=== PATIENT | male | born 1940 | race African-American/Black ===

== ENCOUNTER 2016-02-19 08:58 | Day surgery (SDC) | payer MEDICARE ==
[2016-02-18 15:03] VITALS: BMI 265.0
[2016-02-19] MEDS ORDERED: PROPOFOL 20 ML ONE ×3 (10:38)
[2016-02-19 11:42] VITALS: TEMP 97.5
[2016-02-19 12:12] VITALS: PULSE 71
[2016-02-19 12:29] VITALS: BP 126/69
--- NOTE | 2016-02-20 13:02 | PATH ---
Surgical Pathology Report Patient Name: RICK FRASER [facility]. Rec. #: [id number] /Age/Gender: 1940 (Age: 75) / M Account: [id number] Location: ASU-ENDOSCOPY Taken: 02/19/2016 Received: 02/19/2016 Reported: 02/20/2016 Physicians: Graham De La Fuente D.O. Specimen(s) Received BX DISTAL TRANSVERSE COLON POLYP Clinical History Screening colonoscopy Hemorrhoids, diverticulosis, colon polyp Final Diagnosis COLON, DISTAL TRANSVERSE, POLYP, BIOPSY: TUBULAR ADENOMA. Electronically Signed Rick Beavers M.D. Gross Description Received in formalin, labeled "distal transverse colon polyp biopsy" are 2 ruiz, irregular portions of soft tissue measuring 0.2 and 0.3 cm. in greatest dimension. The specimens are submitted in toto in one cassette. /02/19/201602/19/2016
== END 2016-02-19 12:47 | disposition home or self-care (01) ==
LOC: JASU-ENDO 08:58
PROVIDERS: ATTEND Internal Medicine Gastroenterology
PROC: 0DBL8ZX Excision of Transverse Colon, Via Natural or Artificial Opening Endoscopic, Diagnostic (ICD-10-PCS; principal; 2016-02-19 10:30)
DX: Z12.11 Encounter for screening for malignant neoplasm of colon (principal); K57.30 Diverticulosis of large intestine without perforation or abscess without bleeding; K64.8 Other hemorrhoids; D12.3 Benign neoplasm of transverse colon
CPT/HCPCS: 88305-TC

== ENCOUNTER 2017-01-02 08:14 | Observation (INO) | payer MEDICARE ==
--- NOTE | 2017-01-02 09:24 | PDOC ---
History of Present Illness <Lv Streeter - Last Filed: 01/02/17 11:37> - General History Source: Patient Exam Limitations: No Limitations - History of Present Illness Initial Comments: 01/02/17 09:51 The patient is a 76 year old male, with a significant past medical history of hypertension, hyperlipidemia, coronary artery disease(s/p stents), myocardial infarction(s/p defibrillator placement), who presents to the emergency department complaining of pain to the right shoulder, elbow, and wrist for approximately 2 days. Patient reports gradual onset of pain to right shoulder, elbow, and wrist 2 days ago, that has since worsened. Patient reports no changes with exertion and states pain does not radiate. Patient reports he has been taking Advil with minimal relief. He denies any associated fever, chills, cough, headache, or dizziness. Prior to these symptoms, patient reports soreness to the left shoulder, wrist, and hand one week ago. Last week, patient reports slight chest pain, with no associated shortness of breath, diaphoresis, palpitations, or lower extremity edema. His symptoms from last week have since resolved. He denies any history of gout. He denies any recent travel or sick contacts. Allergies: NKDA Past Surgical History: Cardiac stents, defibrillator Social History: Former smoker(Quit 2008). No ETOH or recreational drug use. PCP: Dr. Sina Lopez Food Production Manager: Dr. Yane Connolly <Bernie Donahue - Last Filed: 01/02/17 14:39> - General Chief Complaint: Pain, Acute Stated Complaint: RT HAND SWELLING Time Seen by Provider: 01/02/17 08:51 Past History - Past Medical History Anemia: Yes Asthma: No Cancer: No Cardiac Disorders: Yes (STENTS 2004 [place] CARDIOMYOPATHY) CVA: No COPD: Yes CHF: No Dementia: No Diabetes: Yes (IDDM) GI Disorders: No Disorders: Yes (URINARY FREQUENCY) HTN: Yes Hypercholesterolemia: Yes Liver Disease: No Seizures: No Thyroid Disease: Yes (NODULE) - Surgical History Abdominal Surgery: No Appendectomy: No Cardiac Surgery: Yes (PACEMAKER, CARDIAC STENT,DEFIBRILLATOR) Cholecystectomy: Yes (LAPAROSCOPIC) Lung Surgery: No Neurologic Surgery: No Orthopedic Surgery: No - Immunization History Immunization Up to Date: Yes - Suicide/Smoking/Psychosocial Hx Smoking Status: Yes Smoking History: Former smoker Have you smoked in the past 12 months: No Number of Cigarettes Smoked Daily: 0 If you are a former smoker, when did you quit?: 2008 Information on smoking cessation initiated: No 'Breaking Loose' booklet given: 02/19/16 Hx Alcohol Use: No Drug/Substance Use Hx: No Substance Use Type: None Hx Substance Use Treatment: No <Lv Streeter - Last Filed: 01/02/17 11:37> <Bernie Donahue - Last Filed: 01/02/17 14:39> - Past Medical History Allergies/Adverse Reactions: Allergies Allergy/AdvReac Type Severity Reaction Status Date / Time No Known Allergies Allergy Verified 01/02/17 08:34 Home Medications: Ambulatory Orders Atorvastatin Ca [Lipitor] 40 mg PO HS 03/29/13 Carvedilol 6.25 mg PO BID 03/29/13 Digoxin 0.125 mcg PO DAILY 03/29/13 Glipizide 5 mg PO BID 03/29/13 Sitagliptin Phosphate [Januvia] 50 mg PO DAILY 03/29/13 Guar Gum [Benefiber] 1 each PO BID 07/15/13 Magnesium Oxide 241.3 mg PO DAILY 07/15/13 Oxycodone HCl/Acetaminophen [Percocet 5-325 mg Tablet] 1 - 2 tab PO Q6H PRN #8 tab 12/12/14 Albuterol Sulfate Inhaler - [Ventolin HFA Inhaler -] 1 - 2 inh PO DAILY PRN 10/26 Aspirin [ASA -] 81 mg PO DAILY 02/18/16 Furosemide [Lasix] 40 mg PO DAILY 02/18/16 Insulin Glargine,Hum.rec.anlog [Lantus (10mL VIAL) -] 0 units SQ DAILY 02/18/16 Linagliptin [Tradjenta] 5 mg PO DAILY 02/18/16 Omeprazole 40 mg PO DAILY 02/18/16 Zolpidem Tartrate 10 mg PO HS 02/18/16 Review of Systems - Review of Systems Able to Perform ROS?: Yes Comments:: 01/02/17 09:51 A complete review of 10 out of 10 review of systems is taken and is negative apart from what is previously mentioned below and in the HPI. <Bernie Donahue - Last Filed: 01/02/17 14:39> *Physical Exam - Vital Signs Last Vital Signs Temp Pulse Resp BP Pulse Ox 97.9 F 81 16 116/64 98 01/02/17 08:20 01/02/17 08:20 01/02/17 08:20 01/02/17 08:20 01/02/17 08:20 <FerdinandLv - Last Filed: 01/02/17 11:37> - Vital Signs Last Vital Signs Temp Pulse Resp BP Pulse Ox 97.9 F 81 16 116/64 98 01/02/17 08:20 01/02/17 08:20 01/02/17 08:20 01/02/17 08:20 01/02/17 08:20 - Physical Exam Comments: 01/02/17 09:51 Vitals: Triage Vital signs reviewed General Appearance: no acute distress, well nourished well developed, Head: Atraumatic, normocephalic Neck: Supple;No Nuchal rigidity Chest Wall: Nontender Cardiac: Regular rate and rhythm, no murmurs, no rubs, no gallops, Lungs: Clear to auscultation bilateral, good air movement bilaterally, Abdomen: Soft, nondistended, normal bowel sounds, nontender to palpation Extremities: Mild swelling to the right wrist and elbow. Pain with active range of motion, but no significant pain with passive range of motion. No overlying cellulitis. Full range of motion to the remainder of the extremities, no cyanosis, clubbing, or other edema. Skin: Warm and dry, no rashes or lesions, no petechiae Neuro: AOX3; Cranial Nerves 2-12 grossly intact, Strength intact to all extremities, Sensation intact to all extremities Psych: normal mood, normal affect <Donahue,Giomjanette - Last Filed: 01/02/17 14:39> ED Treatment Course - LABORATORY CBC & Chemistry Diagram: 01/02/17 09:55 01/02/17 09:48 - RADIOLOGY Radiology Studies Ordered: Category Date Time Status CHEST PA & LAT [RAD] Stat Radiology 01/02/17 09:22 Ordered <Lv Stereter - Last Filed: 01/02/17 11:37> - LABORATORY CBC & Chemistry Diagram: 01/02/17 09:55 01/02/17 09:48 - RADIOLOGY Radiograph Interpretation: 01/02/17 10:37 EXAM: CR Elbow-right INTERPRETED BY: Dr. Griffin REVIEWED BY: Dr. Streeter IMPRESSION: AP, lateral and oblique views reveal but appear to be degenerative changes along with old fragments by the distal humerus. There is some swelling. There may be some minimal posterior fat pad elevation. An acute fracture is not appreciated. If symptoms persist, further imaging may be of help. There are no prior studies for comparison. EXAM: CR wrist w/hand-right INTERPRETED BY: Dr. Griffin REVIEWED BY: Dr. Streeter IMPRESSION: No acute pathology. Loss of bone density. Degenerative changes. Possible old trauma third metacarpal. Erosive changes. Partially flexed digits. EXAM: CXR INTERPRETED BY: Dr. Griffin REVIEWED BY: Dr. Streeter IMPRESSION: No acute pathology. Clear lungs. Multi lead left-sided pacemaker. EXAM: US Abdomen INTERPRETED BY: Dr. Tillman REVIEWED BY: Dr. Streeter IMPRESSION: 1. Status post cholecystectomy. Dilatation of the common bile duct measuring up to 10 mm in diameter, some of which may be physiologic change postcholecystectomy. Please correlate clinically with biliary markers. No significant intrahepatic ductal dilatation. 2. Suboptimal evaluation of the pancreatic head due to overlying bowel gas. 3. Hepatic steatosis. 4. Echogenic right renal cortex compatible with medical-renal disease. No right hydronephrosis. 2.0 cm simple appearing right renal cyst. <Bernie Donahue - Last Filed: 01/02/17 14:39> Medical Decision Making - Medical Decision Making 01/02/17 11:38 76 years old with multiple medical problems presents to the ED with chest pain from a week ago polyarthralgia involving his shoulder elbow and wrist does not appear septic in nature based on examination. Feels somewhat better after IV morphine however on his laboratory analysis patient has acute on chronic renal insufficiency, and an elevated bilirubin We'll observe overnight for IV hydration recheck of labs abasic lupus workup was initiated in the emergency Department the results of this will be need to follow up by the medicine team We will also order a limited abdominal ultrasound to further evaluate the patient's hyperbilirubinemia <Lv Streeter - Last Filed: 01/02/17 11:37> - Medical Decision Making 01/02/17 09:52 Pt is a 76 year old male, with a pmhx of hypertension, hyperlipidemia, coronary artery disease(s/p stents), myocardial infarction(s/p defibrillator placement), who presents to the emergency department complaining of pain to the right shoulder, elbow, and wrist for approximately 2 days. Plan: -ESR, CRP, Uric Acid, CBC, CMP, troponin -ECG -CXR, Right elbow/wrist XR -Pain medications -Reassess Labs reveal hypocalcaemia and elevated bilirubin. Patient will be admitted for Observation overnight to the hospitalists. <Bernie Donahue - Last Filed: 01/02/17 14:39> *DC/Admit/Observation/Transfer - Discharge Dispostion Admit: Yes <Lv Streeter - Last Filed: 01/02/17 11:37> - Attestations Scribe Attestion: 01/02/17 09:53 Documentation prepared by Bernie Donahue, acting as medical billing and coding instructor for Lv Streeter MD. <Bernie Donahue - Last Filed: 01/02/17 14:39> Diagnosis at time of Disposition: Renal insufficiency, Polyarthritis
[2017-01-02] MEDS ORDERED: morphine CARPU-JECT 4 MG/1 ML DISP.SYRIN IVPUSH ONE (10:00)
[2017-01-02] MEDS ORDERED: morphine SULFATE 4 MG/ML VIAL ONE (10:00)
[2017-01-02 10:02] LABS: BASOPHIL 0.4 % (0-2.0); EOSINOPHIL 0.9 % (0-4.5); MCH 31.2 pg (25.7-33.7); MCHC 33.4 g/dl (32.0-35.9); MEAN CELL VOLUME 93.6 fl (80-96); MEAN PLT VOLUME 6.9 fl (7.5-11.1); NEUTROPHILS 73.2 % (42.8-82.8); PLATELET COUNT 217 K/MM3 (134-434); RDW 13.1 % (11.9-15.9); WHITE BLOOD COUNT 9.3 K/mm3 (4.0-10.0)
[2017-01-02 10:39] LABS: C-REACTIVE PROTEIN 11.1 MG/DL (0.00-0.3); URIC ACID 4.9 mg/dL (2.6-7.2)
[2017-01-02 10:43] LABS: ALBUMIN 3.4 g/dl (3.4-5.0); ANION GAP 8 (8-16); BILIRUBIN,TOTAL 2.3 mg/dL (0.2-1.0); CALCIUM 7.7 mg/dL (8.5-10.1); CO2 29 mmol/L (21-32); CREATININE 1.9 mg/dL (0.7-1.3); GLUCOSE,RANDOM 139 mg/dL (74-106); SGOT/AST 16 U/L (15-37); SGPT/ALT 14 U/L (12-78); TOT PROT 7.5 g/dl (6.4-8.2)
[2017-01-02 10:45] LABS: ALK PHOS 114 U/L (45-117); TROPONIN I < 0.02 ng/ml (0.00-0.05)
[2017-01-02] MEDS ORDERED: SODIUM CHLORIDE 0.9% 1000 ML INFUS.BAG IV ONE (11:24)
[2017-01-02 12:32] LABS: MAGNESIUM 1.4 mg/dL (1.8-2.4)
--- NOTE | 2017-01-02 12:39 | HP ---
PCP: Sina Lopez CHIEF COMPLAINT: Right hand pain HISTORY OF PRESENT ILLNESS: This is a 76-year-old man who comes to the ER today complaining of pain in his right shoulder, right elbow and right hand with swelling of his right hand. Symptoms started last night. He says that for the last 1-2 weeks, he had been having pain in his left shoulder and arm. This has resolved. He denies fever, chills, tick bites, rash, history of Lyme, history of STI, jaundice, recent travel. PAST MEDICAL HISTORY: Cardiomyopathy CAD Chronic systolic and diastolic heart failure HTN Hyperlipidemia Type 2 DM Anemia Stage 3 CKD Gout PAST SURGICAL HISTORY: Cardiac stents Defibrillator Cholecystectomy Social History: Smoking: Quit 3-4 years ago Alcohol: Denies Drugs: Denies Recent Travel: No Family History: Unremarkable Allergies No Known Allergies Allergy (Verified 01/02/17 08:34) Home Medications Medication Instructions Recorded Aspirin [ASA -] 81 mg PO DAILY 01/02/17 Carvedilol [Coreg] 6.25 mg PO BID 01/02/17 Cholecalciferol (Vitamin D3) 5,000 unit PO WEEKLY 01/02/17 [Vitamin D3 -] Digoxin [Lanoxin -] 0.125 mg PO DAILY 01/02/17 Febuxostat [Uloric] 40 mg PO DAILY 01/02/17 Furosemide [Lasix] 20 mg PO DAILY 01/02/17 Gabapentin 300 mg PO DAILY 01/02/17 Glimepiride [Amaryl] 2 mg PO DAILY 01/02/17 Lipitor 10 mg PO HS 01/02/17 Omeprazole 40 mg PO DAILY 01/02/17 Tradjenta 5 mg PO DAILY 01/02/17 Vasotec 5 mg PO DAILY 01/02/17 Zolpidem Tartrate [Ambien] 5 mg PO HS 01/02/17 REVIEW OF SYSTEMS CONSTITUTIONAL: Absent: fever, chills, diaphoresis, generalized weakness, malaise, loss of appetite, weight change HEENT: Absent: rhinorrhea, nasal congestion, throat pain, throat swelling, difficulty swallowing, mouth swelling, ear pain, eye pain, visual changes CARDIOVASCULAR: Absent: chest pain, syncope, palpitations, lightheadedness, peripheral edema RESPIRATORY: Absent: cough, shortness of breath, dyspnea with exertion, orthopnea, wheezing, stridor, hemoptysis GASTROINTESTINAL: Absent: abdominal pain, abdominal distension, nausea, vomiting , diarrhea, constipation, melena, hematochezia GENITOURINARY: Absent: dysuria, frequency, urgency, hesitancy, hematuria, flank pain MUSCULOSKELETAL: Present: arthralgias, right hand swelling. Absent: myalgia, back pain, neck pain SKIN: Absent: rash, itching, pallor HEMATOLOGIC/IMMUNOLOGIC: Absent: easy bleeding, easy bruising, lymphadenopathy, frequent infections ENDOCRINE: Absent: unexplained weight gain, unexplained weight loss, heat intolerance, cold intolerance NEUROLOGIC: Absent: headache, focal weakness, paresthesias, dizziness, unsteady gait, seizure, mental status changes, bladder or bowel incontinence PSYCHIATRIC: Absent: anxiety, depression, suicidal or homicidal ideation, hallucinations. PHYSICAL EXAMINATION Vital Signs - 24 hr 01/02/17 08:20 Temperature 97.9 F Pulse Rate 81 Respiratory 16 Rate Blood Pressure 116/64 O2 Sat by Pulse 98 Oximetry (%) GENERAL: Awake, alert, and fully oriented, in no acute distress. HEAD: Normal with no signs of trauma. EYES: Pupils equal, round and reactive to light, extraocular movements intact, sclerae anicteric, conjunctivae clear. EARS, NOSE, THROAT: Ears normal, nares patent, oropharynx clear without exudates. Moist mucous membranes. NECK: Normal range of motion, supple without lymphadenopathy, JVD, or masses. LUNGS: Breath sounds equal, clear to auscultation bilaterally. No wheezes, and no crackles. No accessory muscle use. HEART: Regular rate and rhythm, normal S1 and S2 without murmur, rub or gallop. ABDOMEN: Soft, nontender, not distended, normoactive bowel sounds, no guarding, no rebound, no masses. No hepatomegaly or splenomegaly. MUSCULOSKELETAL: Right hand swollen. No erythema, warmth. Decreased ROM of fingers of right hand. Normal ROM of right shoulder and right elbow without swelling or erythema. No CVA tenderness. UPPER EXTREMITIES: 2+ pulses, warm, well-perfused. No cyanosis. No clubbing. No peripheral edema. LOWER EXTREMITIES: 2+ pulses, warm, well-perfused. No calf tenderness. No peripheral edema. NEUROLOGICAL: Cranial nerves II-XII intact. Normal speech. No focal deficits. Gait nob observed. PSYCHIATRIC: Cooperative. Good eye contact. Appropriate mood and affect. SKIN: Warm, dry, normal turgor, no rashes or lesions noted, normal capillary refill. Laboratory Results - last 24 hr 01/02/17 01/02/17 01/02/17 09:48 09:48 09:55 WBC 9.3 D RBC 3.67 L Hgb 11.5 L Hct 34.4 L MCV 93.6 MCH 31.2 MCHC 33.4 RDW 13.1 Plt Count 217 D MPV 6.9 L Neutrophils % 73.2 D Lymphocytes % 16.3 D Monocytes % 9.2 Eosinophils % 0.9 Basophils % 0.4 PTT (Actin FS) 32.6 Sodium 137 Potassium 4.3 Chloride 100 Carbon Dioxide 29 Anion Gap 8 BUN 22 H D Creatinine 1.9 H D Creat Clearance w eGFR 34.73 Random Glucose 139 H D Uric Acid Calcium 7.7 L Magnesium Total Bilirubin 2.3 H D AST 16 D ALT 14 D Alkaline Phosphatase 114 Troponin I < 0.02 C-Reactive Protein Total Protein 7.5 Albumin 3.4 Rheumatoid Factor 01/02/17 09:55 WBC RBC Hgb Hct MCV MCH MCHC RDW Plt Count MPV Neutrophils % Lymphocytes % Monocytes % Eosinophils % Basophils % PTT (Actin FS) Sodium Potassium Chloride Carbon Dioxide Anion Gap BUN Creatinine Creat Clearance w eGFR Random Glucose Uric Acid 4.9 Calcium Magnesium 1.4 L D Total Bilirubin AST ALT Alkaline Phosphatase Troponin I C-Reactive Protein 11.1 H Total Protein Albumin Rheumatoid Factor < 10.0 ASSESSMENT/PLAN: This is a 76-year-old man with a history of cardiomyopathy, CAD, cardiac stents , chronic systolic and diastolic heart failure, ICD, HTN, hyperlipidemia, type 2 DM, anemia, stage 3 CKD, gout who presented to the ER today complaining of pain in his right shoulder, right elbow, right hand with swelling of his right hand. 1. Polyarthralgias - Does not appear to be acute gout - Continue Percocet as needed for pain - Avoid NSAIDs secondary to CKD - C-RP elevated, uric acid normal, RF negative - Check HERB, hepatitis panel, Lyme Ab 2. Hyperbilirubinemia - Direct bili pending - RUQ US pending 3. Hypomagnesemia - Supplement magnesium 4. Hypocalcemia - Corrected calcium is 8.2 5. Stage 3 CKD - Last available creatinines were 1.5-1.7 in 2014 - Avoid NSAIDs - Cautious IV hydration - Monitor creatinine 6. CAD - Stable - Continue aspirin, Coreg, Lipitor 7. Cardiomyopathy with chronic systolic and diastolic heart failure - Stable - Continue Coreg, Vasotec, Lasix, Digoxin - Has ICD 8. Hypertension - Continue Coreg, Vasotec, Lasix 9. Hyperlipidemia - Continue Lipitor 10. Type 2 diabetes mellitus - Hold Tradjenta, Amaryl - Fingersticks with Novolog sliding scale 11. History of gout - Ethanitiffany Rothmanoric
[2017-01-02] MEDS ORDERED: ALBUTEROL SO4 18 GM HFA INHALER IH PRN (13:12)
[2017-01-02] MEDS ORDERED: ACETAMINOPHEN 325 MG TABLET (FP) PO PRN (13:15)
[2017-01-02] MEDS ORDERED: SODIUM CHLORIDE 1,000 ML IV SCH (13:15)
[2017-01-02] MEDS ORDERED: MAGNESIUM SULF 50% (8.12 MEQ/2 ML-1 GM VIAL) IVPB ONE (14:05)
[2017-01-02] MEDS ORDERED: INSULIN DETEMIR 100 UNITS/ML MDV SQ SCH (14:15)
[2017-01-02] MEDS: oxyCODONE HCL 5 MG TABLET PO PRN (15:44)
[2017-01-02] MEDS: ACETAMINOPHEN 325 MG TABLET (FP) PO PRN (15:45)
[2017-01-02 16:44] VITALS: BMI 29.0
[2017-01-02 16:55] LABS: BILIRUBIN,DIRECT 1.3 mg/dL (0.0-0.2); MAGNESIUM 1.4 mg/dL (1.8-2.4)
[2017-01-02] MEDS: INSULIN SLIDING SCALE (NOVOLOG) 1 VIAL SQ SCH ×2 (17:41→22:22)
[2017-01-02] MEDS ORDERED: FLU VACCINE QUAD 60 MCG/0.5 ML (MDV 17-18) IM ONE (18:15)
[2017-01-02] MEDS ORDERED: CARVEDILOL 6.25 MG TABLET (FP) PO SCH (22:00)
[2017-01-02] MEDS ORDERED: ATORVASTATIN CA 40 MG TABLET (FP) PO SCH (22:00)
[2017-01-02] MEDS: ZOLPIDEM TARTRATE 5 MG TABLET PO PRN (22:21)
[2017-01-02] MEDS: ATORVASTATIN CA 10 MG TABLET (FP) PO SCH (22:21)
[2017-01-02] MEDS: CARVEDILOL 6.25 MG TABLET (FP) PO SCH (22:21)
[2017-01-03] MEDS: oxyCODONE HCL 5 MG TABLET PO PRN ×3 (01:31→20:07)
[2017-01-03] MEDS: ACETAMINOPHEN 325 MG TABLET (FP) PO PRN ×3 (01:32→20:06)
[2017-01-03] MEDS: INSULIN SLIDING SCALE (NOVOLOG) 1 VIAL SQ SCH ×4 (06:18→21:48)
[2017-01-03 07:44] LABS: BASOPHIL 0.3 % (0-2.0); EOSINOPHIL 1.4 % (0-4.5); MCH 31.6 pg (25.7-33.7); MCHC 33.6 g/dl (32.0-35.9); MEAN CELL VOLUME 93.9 fl (80-96); MEAN PLT VOLUME 7.5 fl (7.5-11.1); NEUTROPHILS 67.4 % (42.8-82.8); PLATELET COUNT 182 K/MM3 (134-434); RDW 12.9 % (11.9-15.9)
[2017-01-03 08:39] LABS: ANION GAP 8 (8-16); CALCIUM 7.5 mg/dL (8.5-10.1); CO2 28 mmol/L (21-32); CREATININE 1.6 mg/dL (0.7-1.3); GLUCOSE,RANDOM 93 mg/dL (74-106); MAGNESIUM 1.9 mg/dL (1.8-2.4)
[2017-01-03] MEDS ORDERED: FLU VACCINE QUAD 60 MCG/0.5 ML (MDV 17-18) IM ONE (09:00)
[2017-01-03 09:31] LABS: ALBUMIN 2.9 g/dl (3.4-5.0); BILIRUBIN,DIRECT 1.5 mg/dL (0.0-0.2); BILIRUBIN,TOTAL 2.5 mg/dL (0.2-1.0)
--- NOTE | 2017-01-03 09:59 | PN ---
Progress Note (short form) - Note Progress Note: Subjective: The patient was seen and examined at the bedside, he is still complaining of right hand and elbow pain and swelling. Current Medications Generic Name Dose Route Start Last Admin Trade Name Freq PRN Reason Stop Dose Admin Acetaminophen 325 mg 01/02/17 13:17 01/03/17 01:32 Tylenol - PO 325 mg Q6H PRN Administration PAIN Acetaminophen 650 mg 01/02/17 13:15 Tylenol - PO Q4H PRN FEVER OR PAIN Albuterol Sulfate 2 puff 01/02/17 13:12 Ventolin Hfa Inhaler - IH Q4H PRN SHORT OF BREATH/WHEEZING Aspirin 81 mg 01/03/17 10:00 Asa - PO DAILY CLIVE Atorvastatin Calcium 10 mg 01/02/17 22:00 01/02/17 22:21 Lipitor - PO 10 mg HS CLIVE Administration Carvedilol 6.25 mg 01/02/17 22:00 01/02/17 22:21 Coreg - PO 6.25 mg BID CLIVE Administration Digoxin 0.125 mg 01/03/17 10:00 Lanoxin - PO DAILY CLIVE Enalapril Maleate 5 mg 01/03/17 10:00 Vasotec - PO DAILY CLIVE Ergocalciferol 50,000 unit 01/04/17 10:00 Drisdol - PO Benito@1000 CLIVE Febuxostat 40 mg 01/03/17 10:00 Uloric - PO DAILY CLIVE Furosemide 20 mg 01/03/17 10:00 Lasix - PO DAILY CLIVE Gabapentin 300 mg 01/03/17 10:00 Neurontin - PO DAILY CLIVE Sodium Chloride 1,000 mls @ 50 mls/hr 01/02/17 13:15 01/02/17 16:01 Normal Saline - IV 01/03/17 13:17 50 mls/hr ASDIR CLIVE Administration Insulin Aspart 1 vial 01/02/17 16:30 01/03/17 06:18 Novolog Vial Sliding Scale - SQ Not Given ACHS CLIVE Protocol Oxycodone HCl 5 mg 01/02/17 13:17 01/03/17 01:31 Roxicodone - PO 5 mg Q6H PRN Administration PAIN Pantoprazole Sodium 40 mg 01/03/17 10:00 Protonix - PO DAILY CLIVE Zolpidem Tartrate 5 mg 01/02/17 22:00 01/02/17 22:21 Ambien - PO 5 mg HS PRN Administration INSOMNIA Objective: Vital Signs Period Temp Pulse Resp BP Sys/Robbins Pulse Ox Last 24 Hr 98.1 F-99.9 F 72-86 18-20 115-130/59-80 99-99 Physical Exam: General: NAD, A&Ox3 Lungs: CTA bilaterally Heart: RRR, S1S2 Abd: Soft, non-tender, non-distended. Normoactive bowel sounds Ext: R hand edema, no erythema. Decreased ROM to fingers and wrist. Normal ROM to right shoulder and right elbow without erythema or edema CBCD WBC 8.0 K/mm3 (4.0-10.0) 01/03/17 05:17 RBC 3.04 M/mm3 (4.00-5.60) L 01/03/17 05:17 Hgb 9.6 GM/dL (11.7-16.9) L D 01/03/17 05:17 Hct 28.6 % (35.4-49) L D 01/03/17 05:17 MCV 93.9 fl (80-96) 01/03/17 05:17 MCHC 33.6 g/dl (32.0-35.9) 01/03/17 05:17 RDW 12.9 % (11.9-15.9) 01/03/17 05:17 Plt Count 182 K/MM3 (134-434) 01/03/17 05:17 MPV 7.5 fl (7.5-11.1) 01/03/17 05:17 CMP Sodium 140 mmol/L (136-145) 01/03/17 05:17 Potassium 3.9 mmol/L (3.5-5.1) 01/03/17 05:17 Chloride 104 mmol/L (98-107) 01/03/17 05:17 Carbon Dioxide 28 mmol/L (21-32) 01/03/17 05:17 Anion Gap 8 (8-16) 01/03/17 05:17 BUN 20 mg/dL (7-18) H 01/03/17 05:17 Creatinine 1.6 mg/dL (0.7-1.3) H 01/03/17 05:17 Creat Clearance w eGFR 34.73 (>60) 01/02/17 09:48 Random Glucose 93 mg/dL (74-106) D 01/03/17 05:17 Calcium 7.5 mg/dL (8.5-10.1) L 01/03/17 05:17 Total Bilirubin 2.3 mg/dL (0.2-1.0) H D 01/02/17 09:48 AST 16 U/L (15-37) D 01/02/17 09:48 ALT 14 U/L (12-78) D 01/02/17 09:48 Alkaline Phosphatase 114 U/L (45-117) 01/02/17 09:48 Total Protein 7.5 g/dl (6.4-8.2) 01/02/17 09:48 Albumin 3.4 g/dl (3.4-5.0) 01/02/17 09:48 CARDIAC ENZYMES Troponin I < 0.02 ng/ml (0.00-0.05) 01/02/17 09:48 Assessment: This is a 76 year old male with PMHx of cardiomyopathy, CAD, cardiac tests, chronic systolic and diastolic heart failure, ICD, HTN, hyperlipidemia, DM, anemia, CKD stage 3, gout, who presented to the ED with right shoulder, right elbow, right hand pain and swelling. Plan: 1) Polyarthritis - Possible pseudogout? - Elevated ESR, CRP, normal uric acid - Percocet prn pain - RF negative - F/u HERB, lyme Ab 2) Hyperbilirubinemia - F/u levels today - F/u hepatitis panel - Liver ultrasound with s/p cholecystectomy. Dilation of the common bile duct measuring up to 10mm in diameter. hepatic steatosis. - F/u GI consult 3) Anemia - Hgb dropped from 11.5->9.6 may be dilutional as the patient received IV fluids - d/c fluids and recheck H/H this pm 4) CKD stabe 3 - Cr 1.6 today - Avoid NSAIDs - Monitor Cr 5) CAD - Continue ASA - Continue Coreg - Continue Lipitor 6) Cardiomyopathy wtih chronic systolic and diastolic heart failure - No evidence of acute failure at this time - Continue Lasix - Continue Digoxin - Continue Vasotec - Continue Coreg 7) HTN - As above 8) DM - BGM ACHS - ISS ACHS 9) Gout - Continue Uloric 10) F/E/N: - Diabetic/sodium controlled diet - Monitor calcium (corrected for hypoalbumineami 8.2) 11) Prophylaxis: - OOB ambulating - Heparin 5,000u sq bid (no evidence of bleeding) 12) Dispo: - Requires continued observation CODE STATUS: FULL CODE Visit type - Emergency Visit Emergency Visit: Yes ED Registration Date: 01/02/17 Care time: The patient presented to the Emergency Department on the above date and was hospitalized for further evaluation of their emergent condition. - New Patient This patient is new to me today: Yes Date on this admission: 01/03/17 - Critical Care Critical Care patient: No
[2017-01-03] MEDS ORDERED: DIGOXIN 0.125 MG TABLET (FP) PO SCH (10:00)
[2017-01-03] MEDS ORDERED: ASPIRIN 81 MG CHEWABLE TABLETS PO SCH (10:00)
[2017-01-03] MEDS ORDERED: PANTOPRAZOLE 40 MG TABLET (FP) PO SCH (10:00)
[2017-01-03] MEDS ORDERED: FUROSEMIDE 40 MG TABLET (FP) PO SCH (10:00)
[2017-01-03] MEDS: CARVEDILOL 6.25 MG TABLET (FP) PO SCH ×2 (10:10→21:48)
[2017-01-03] MEDS: DIGOXIN 0.125 MG TABLET (FP) PO SCH (10:10)
[2017-01-03] MEDS: PANTOPRAZOLE 40 MG TABLET (FP) PO SCH (10:10)
[2017-01-03] MEDS: ASPIRIN 81 MG CHEWABLE TABLETS PO SCH (10:10)
[2017-01-03] MEDS: FEBUXOSTAT 40 MG TAB PO SCH (10:11)
[2017-01-03] MEDS: GABAPENTIN 300 MG CAPSULE (FP) PO SCH (10:11)
[2017-01-03] MEDS: FUROSEMIDE 20 MG TABLET (FP) PO SCH (10:11)
[2017-01-03] MEDS: ENALAPRIL MALEATE 5 MG TABLET (FP) PO SCH (10:11)
[2017-01-03 16:44] LABS: MCH 31.6 pg (25.7-33.7); MCHC 33.9 g/dl (32.0-35.9); MEAN CELL VOLUME 93.4 fl (80-96); MEAN PLT VOLUME 7.2 fl (7.5-11.1); PLATELET COUNT 221 K/MM3 (134-434); RDW 12.8 % (11.9-15.9); WHITE BLOOD COUNT 7.7 K/mm3 (4.0-10.0)
[2017-01-03] MEDS: ZOLPIDEM TARTRATE 5 MG TABLET PO PRN (21:47)
[2017-01-03] MEDS: ATORVASTATIN CA 10 MG TABLET (FP) PO SCH (21:48)
[2017-01-03] MEDS: HEPARIN NA (PORCINE) 5,000 UNITS/ML 1ML VIAL SQ SCH (21:48)
[2017-01-04] MEDS: INSULIN SLIDING SCALE (NOVOLOG) 1 VIAL SQ SCH ×4 (06:12→21:06)
[2017-01-04] MEDS: ACETAMINOPHEN 325 MG TABLET (FP) PO PRN ×3 (07:23→21:04)
[2017-01-04] MEDS: oxyCODONE HCL 5 MG TABLET PO PRN ×3 (07:23→21:05)
[2017-01-04 08:23] LABS: MCH 31.4 pg (25.7-33.7); MCHC 33.7 g/dl (32.0-35.9); MEAN PLT VOLUME 6.8 fl (7.5-11.1); PLATELET COUNT 230 K/MM3 (134-434); RDW 12.8 % (11.9-15.9); WHITE BLOOD COUNT 7.9 K/mm3 (4.0-10.0)
[2017-01-04 08:59] LABS: ALBUMIN 2.9 g/dl (3.4-5.0); ALK PHOS 110 U/L (45-117); ANION GAP 9 (8-16); CALCIUM 7.8 mg/dL (8.5-10.1); CO2 25 mmol/L (21-32); CREATININE 1.6 mg/dL (0.7-1.3); GLUCOSE,RANDOM 118 mg/dL (74-106); SGOT/AST 16 U/L (15-37); SGPT/ALT 13 U/L (12-78); TOT PROT 6.6 g/dl (6.4-8.2)
[2017-01-04] MEDS: DIGOXIN 0.125 MG TABLET (FP) PO SCH (09:19)
[2017-01-04] MEDS: CARVEDILOL 6.25 MG TABLET (FP) PO SCH ×2 (09:19→21:04)
[2017-01-04] MEDS: ASPIRIN 81 MG CHEWABLE TABLETS PO SCH (09:20)
[2017-01-04] MEDS: PANTOPRAZOLE 40 MG TABLET (FP) PO SCH (09:20)
[2017-01-04] MEDS: FUROSEMIDE 20 MG TABLET (FP) PO SCH (09:20)
[2017-01-04] MEDS: GABAPENTIN 300 MG CAPSULE (FP) PO SCH (09:20)
[2017-01-04] MEDS: ENALAPRIL MALEATE 5 MG TABLET (FP) PO SCH (09:21)
[2017-01-04] MEDS: FEBUXOSTAT 40 MG TAB PO SCH (09:21)
[2017-01-04] MEDS: HEPARIN NA (PORCINE) 5,000 UNITS/ML 1ML VIAL SQ SCH ×2 (09:21→21:12)
[2017-01-04] MEDS ORDERED: ERGOCALCIFEROL (VITAMIN D2) 50,000 UNIT CAPSULE (FP) PO SCH (10:00)
--- NOTE | 2017-01-04 10:55 | PN ---
Progress Note (short form) - Note Progress Note: Patient is a patient of Dr Beltre recent colonsocopy done. Please call for further evaluation. Direct bilirubin ordered. Elevated total bilirubin most likely secondary to right sided heart failure. Thanks
--- NOTE | 2017-01-04 12:28 | PN ---
Progress Note (short form) - Note Progress Note: Subjective: The patient was seen and examined at the bedside, he is complaining that he would like to go home Still with Right hand swelling Spoke with daughter, she states his hands and wrists "get swollen a lot" and that he often complains of knee pain. She states when the swelling is intolerable for the patient he will take colchycine Current Medications Generic Name Dose Route Start Last Admin Trade Name Freq PRN Reason Stop Dose Admin Acetaminophen 325 mg 01/02/17 13:17 01/04/17 07:23 Tylenol - PO 325 mg Q6H PRN Administration PAIN Acetaminophen 650 mg 01/02/17 13:15 Tylenol - PO Q4H PRN FEVER OR PAIN Albuterol Sulfate 2 puff 01/02/17 13:12 Ventolin Hfa Inhaler - IH Q4H PRN SHORT OF BREATH/WHEEZING Aspirin 81 mg 01/03/17 10:00 01/04/17 09:20 Asa - PO 81 mg DAILY CLIVE Administration Atorvastatin Calcium 10 mg 01/02/17 22:00 01/03/17 21:48 Lipitor - PO 10 mg HS CLIVE Administration Carvedilol 6.25 mg 01/02/17 22:00 01/04/17 09:19 Coreg - PO 6.25 mg BID CLIVE Administration Digoxin 0.125 mg 01/03/17 10:00 01/04/17 09:19 Lanoxin - PO 0.125 mg DAILY CLIVE Administration Enalapril Maleate 5 mg 01/03/17 10:00 01/04/17 09:21 Vasotec - PO 5 mg DAILY CLIVE Administration Ergocalciferol 50,000 unit 01/04/17 10:00 01/04/17 09:21 Drisdol - PO 50,000 unit Benito@1000 CLIVE Administration Febuxostat 40 mg 01/03/17 10:00 01/04/17 09:21 Uloric - PO 40 mg DAILY CLIVE Administration Furosemide 20 mg 01/03/17 10:00 01/04/17 09:20 Lasix - PO 20 mg DAILY CLIVE Administration Gabapentin 300 mg 01/03/17 10:00 01/04/17 09:20 Neurontin - PO 300 mg DAILY CLIVE Administration Heparin Sodium (Porcine) 5,000 unit 01/03/17 22:00 01/04/17 09:21 Heparin - SQ 5,000 unit BID CLIVE Administration Insulin Aspart 1 vial 01/02/17 16:30 01/04/17 11:24 Novolog Vial Sliding Scale - SQ Not Given ACHS [facility] Protocol Oxycodone HCl 5 mg 01/02/17 13:17 01/04/17 07:23 Roxicodone - PO 5 mg Q6H PRN Administration PAIN Pantoprazole Sodium 40 mg 01/03/17 10:00 01/04/17 09:20 Protonix - PO 40 mg DAILY CLIVE Administration Zolpidem Tartrate 5 mg 01/02/17 22:00 01/03/17 21:47 Ambien - PO 5 mg HS PRN Administration INSOMNIA Objective: Vital Signs Period Temp Pulse Resp BP Sys/Robbins Pulse Ox Last 24 Hr 98.1 F-98.9 F 70-90 17-20 107-130/59-68 99 Physical Exam: General: NAD, A&Ox3 Lungs: CTA bilaterally Heart: RRR, S1S2 Abd: Soft, non-tender, non-distended. Normoactive bowel sounds Ext: R hand edema, no erythema. Decreased ROM to fingers and wrist. Normal ROM to right shoulder and right elbow without erythema or edema CBCD WBC 7.9 K/mm3 (4.0-10.0) 01/04/17 07:30 RBC 3.24 M/mm3 (4.00-5.60) L 01/04/17 07:30 Hgb 10.2 GM/dL (11.7-16.9) L 01/04/17 07:30 Hct 30.1 % (35.4-49) L 01/04/17 07:30 MCV 93.0 fl (80-96) 01/04/17 07:30 MCHC 33.7 g/dl (32.0-35.9) 01/04/17 07:30 RDW 12.8 % (11.9-15.9) 01/04/17 07:30 Plt Count 230 K/MM3 (134-434) 01/04/17 07:30 MPV 6.8 fl (7.5-11.1) L 01/04/17 07:30 CMP Sodium 137 mmol/L (136-145) 01/04/17 07:30 Potassium 4.2 mmol/L (3.5-5.1) 01/04/17 07:30 Chloride 103 mmol/L (98-107) 01/04/17 07:30 Carbon Dioxide 25 mmol/L (21-32) 01/04/17 07:30 Anion Gap 9 (8-16) 01/04/17 07:30 BUN 19 mg/dL (7-18) H 01/04/17 07:30 Creatinine 1.6 mg/dL (0.7-1.3) H 01/04/17 07:30 Creat Clearance w eGFR 42.35 (>60) 01/04/17 07:30 Random Glucose 118 mg/dL (74-106) H D 01/04/17 07:30 Calcium 7.8 mg/dL (8.5-10.1) L 01/04/17 07:30 Total Bilirubin 3.0 mg/dL (0.2-1.0) H 01/04/17 07:30 AST 16 U/L (15-37) 01/04/17 07:30 ALT 13 U/L (12-78) 01/04/17 07:30 Alkaline Phosphatase 110 U/L (45-117) 01/04/17 07:30 Total Protein 6.6 g/dl (6.4-8.2) 01/04/17 07:30 Albumin 2.9 g/dl (3.4-5.0) L 01/04/17 07:30 CARDIAC ENZYMES Troponin I < 0.02 ng/ml (0.00-0.05) 01/02/17 09:48 Assessment: This is a 76 year old male with PMHx of cardiomyopathy, CAD, cardiac tests, chronic systolic and diastolic heart failure, ICD, HTN, hyperlipidemia, DM, anemia, CKD stage 3, gout, who presented to the ED with right shoulder, right elbow, right hand pain and swelling. Plan: 1) Polyarthritis - Possible pseudogout? - Elevated ESR, CRP, normal uric acid - Percocet prn pain - RF negative - F/u HERB, lyme Ab - Will not give colchycine at this time given his kidney function - Hold off on starting steroids at this time until evaluated by rheumatology 2) Hyperbilirubinemia - Bili 3 today - F/u hepatitis panel - Liver ultrasound with s/p cholecystectomy. Dilation of the common bile duct measuring up to 10mm in diameter. hepatic steatosis. - F/u GI consult 3) Anemia - Hgb stable, continue to monitor 4) CKD stabe 3 - Cr 1.6 today - Avoid NSAIDs - Monitor Cr 5) CAD - Continue ASA - Continue Coreg - Continue Lipitor 6) Cardiomyopathy with chronic systolic and diastolic heart failure - No evidence of acute failure at this time - Continue Lasix - Continue Digoxin - Continue Vasotec - Continue Coreg 7) HTN - As above 8) DM - BGM ACHS - ISS ACHS 9) Gout - Continue Uloric 10) F/E/N: - Diabetic/sodium controlled diet - Monitor electrolytes 11) Prophylaxis: - OOB ambulating - Heparin 5,000u sq bid (no evidence of bleeding) 12) Dispo: - Requires continued observation CODE STATUS: FULL CODE Visit type - Emergency Visit Emergency Visit: Yes ED Registration Date: 01/02/17 Care time: The patient presented to the Emergency Department on the above date and was hospitalized for further evaluation of their emergent condition. - New Patient This patient is new to me today: No - Critical Care Critical Care patient: No
--- NOTE | 2017-01-04 19:51 | CONSULT ---
Consult Consult Specialty:: Rheumatology - History of Present Illness History of Present Illness: 76 year old male with past medical history of hypertension, hyperlipidemia, coronary artery disease(s/p stents), myocardial infarction(s/p defibrillator placement), and gouty arthritis admitted with acute arthritis in multiple joints. The patient is a poor historian. I spoke with his daughter- and I could not get detailed history. He has had gouty arthritis for a long period of time (at least 10 years), treated with Uloric (they cannot remember for how long). Apparently the last episode of acute arthritis was 2 months ago. The patient reports a 3 day histpory fo acute arthritis in the right elbow and right knee and today he developed pain in both knees (according to previous notes, he might have had the pain for 2 weeks). The pain is severe and he did not improve since admission. Since admission T max. 99.9. On admission ESR was 78, creatinine 1.6, uric acid 4.9 and LFT normal. X rays of the right hand revealed a normal carpus. The 2nd and 4th MCPs had marginal erosions with sclerotic margin and normal joint space. The 5th PIP also had a marginal erosion with sclerotic margin. Significant degenerative chanegs in PIPs and DIPS. Left elbow had a bonce freament in the humerus - etiology? previous fracture? - History Source History Provided By: Patient, Family Member, Medical Record Limitations to Obtaining History: Poor Historian - Past Medical History Cardio/Vascular: Yes: CAD, HTN, Hyperlipdemia, Other (defibrillator,s/p cardiac stent at [facility]) Renal/: Yes: Renal Failure (chronic) Rheumatology: Yes: Gout Endocrine: Yes: Diabetes Mellitus - Past Surgical History Past Surgical History: Yes: AICD - Alcohol/Substance Use Hx Alcohol Use: No History of Substance Use: reports: None - Smoking History Smoking history: Former smoker Have you smoked in the past 12 months: No Aproximately how many cigarettes per day: 0 If you are a former smoker, when did you quit?: 2008 - Social History Usual Living Arrangement: Alone ADL: Independent History of Recent Travel: No Home Medications - Allergies Allergies/Adverse Reactions: Allergies Allergy/AdvReac Type Severity Reaction Status Date / Time No Known Allergies Allergy Verified 01/02/17 08:34 - Home Medications Home Medications: Ambulatory Orders Aspirin [ASA -] 81 mg PO DAILY 01/02/17 Carvedilol [Coreg] 6.25 mg PO BID 01/02/17 Cholecalciferol (Vitamin D3) [Vitamin D3 -] 5,000 unit PO WEEKLY 01/02/17 Digoxin [Lanoxin -] 0.125 mg PO DAILY 01/02/17 Febuxostat [Uloric] 40 mg PO DAILY 01/02/17 Furosemide [Lasix] 20 mg PO DAILY 01/02/17 Gabapentin 300 mg PO DAILY 01/02/17 Glimepiride [Amaryl] 2 mg PO DAILY 01/02/17 Lipitor 10 mg PO HS 01/02/17 Omeprazole 40 mg PO DAILY 01/02/17 Tradjenta 5 mg PO DAILY 01/02/17 Vasotec 5 mg PO DAILY 01/02/17 Zolpidem Tartrate [Ambien] 5 mg PO HS 01/02/17 Family Disease History - Family Disease History Family Disease History: Diabetes: Mother, Heart Disease: Father Review of Systems - Review of Systems Constitutional: reports: Malaise Eyes: reports: No Symptoms HENT: reports: No Symptoms Neck: reports: No Symptoms Cardiovascular: reports: No Symptoms Respiratory: reports: Snoring Gastrointestinal: reports: No Symptoms Musculoskeletal: reports: Other (See HPI) Physical Exam Vital Signs: Vital Signs Temperature 98.7 F 01/04/17 18:50 Pulse Rate 83 01/04/17 18:50 Respiratory Rate 20 01/04/17 18:50 Blood Pressure 126/65 01/04/17 18:50 O2 Sat by Pulse Oximetry (%) 99 01/04/17 10:00 Constitutional: Yes: Moderate Distress Eyes: Yes: WNL HENT: Yes: WNL Neck: Yes: WNL Cardiovascular: Yes: WNL Respiratory: Yes: WNL Gastrointestinal: Yes: WNL Musculoskeletal: Yes: Other (Tenderness and swelling in the right elbow, right wrist. In the right hand: swelling of the 2nd and 3rd MCPs and 2nd and 3rd PIPs. No active joints in the left hand. Both knees were tender and swollen.) Labs: CBC, BMP 01/04/17 07:30 01/04/17 07:30 Laboratory Tests 01/02/17 01/02/17 01/04/17 09:48 09:55 07:30 ESR 78 H Uric Acid 4.9 Total Bilirubin 3.0 H AST 16 ALT 13 Alkaline Phosphatase 110 Total Protein 6.6 Albumin 2.9 L Problem List - Problems (1) Gout Assessment/Plan: Probable polyarticular acute gouty arthritis, even though uric acid was normal. Mild chronic kidney disease. Plan: Prednisone 40 mg PO daily fror 3 days, then tapering schedule every 3 days and DC. Low purine diet. Code(s): M10.9 - GOUT, UNSPECIFIED
[2017-01-04] MEDS: predniSONE 20 MG TABLET (UD) PO SCH (21:03)
[2017-01-04] MEDS: ZOLPIDEM TARTRATE 5 MG TABLET PO PRN (21:04)
[2017-01-04] MEDS: ATORVASTATIN CA 10 MG TABLET (FP) PO SCH (21:04)
[2017-01-05] MEDS: INSULIN SLIDING SCALE (NOVOLOG) 1 VIAL SQ SCH ×3 (06:16→16:51)
[2017-01-05 07:26] LABS: MCH 30.8 pg (25.7-33.7); MCHC 33.3 g/dl (32.0-35.9); MEAN CELL VOLUME 92.5 fl (80-96); MEAN PLT VOLUME 6.9 fl (7.5-11.1); PLATELET COUNT 231 K/MM3 (134-434); RDW 12.7 % (11.9-15.9); WHITE BLOOD COUNT 6.6 K/mm3 (4.0-10.0)
[2017-01-05 08:01] LABS: ALBUMIN 2.7 g/dl (3.4-5.0); ALK PHOS 104 U/L (45-117); ANION GAP 4 (8-16); BILIRUBIN,DIRECT 1.6 mg/dL (0.0-0.2); BILIRUBIN,TOTAL 2.6 mg/dL (0.2-1.0); CALCIUM 7.6 mg/dL (8.5-10.1); CO2 30 mmol/L (21-32); CREATININE 1.7 mg/dL (0.7-1.3); GLUCOSE,RANDOM 170 mg/dL (74-106); SGOT/AST 15 U/L (15-37); SGPT/ALT 13 U/L (12-78); TOT PROT 6.2 g/dl (6.4-8.2)
[2017-01-05] MEDS ORDERED: PT OWN MED DRAWER 7, Y5N ONE (08:51)
[2017-01-05] MEDS: predniSONE 20 MG TABLET (UD) PO SCH (09:02)
[2017-01-05] MEDS: HEPARIN NA (PORCINE) 5,000 UNITS/ML 1ML VIAL SQ SCH (09:02)
[2017-01-05] MEDS: ASPIRIN 81 MG CHEWABLE TABLETS PO SCH (09:03)
[2017-01-05] MEDS: oxyCODONE HCL 5 MG TABLET PO PRN (09:03)
[2017-01-05] MEDS: FEBUXOSTAT 40 MG TAB PO SCH (09:03)
[2017-01-05] MEDS: GABAPENTIN 300 MG CAPSULE (FP) PO SCH (09:04)
[2017-01-05] MEDS: CARVEDILOL 6.25 MG TABLET (FP) PO SCH (09:04)
[2017-01-05] MEDS: ACETAMINOPHEN 325 MG TABLET (FP) PO PRN (09:04)
[2017-01-05] MEDS: DIGOXIN 0.125 MG TABLET (FP) PO SCH (09:04)
[2017-01-05] MEDS: ENALAPRIL MALEATE 5 MG TABLET (FP) PO SCH (09:04)
[2017-01-05] MEDS: PANTOPRAZOLE 40 MG TABLET (FP) PO SCH (09:04)
[2017-01-05] MEDS: FUROSEMIDE 20 MG TABLET (FP) PO SCH (09:04)
--- NOTE | 2017-01-05 12:13 | CON.GI ---
Consult Consult Specialty:: Gastroenterology Referred by:: Almaz Gonzales NP Reason for Consultation:: Jaundice - History of Present Illness Chief Complaint: Swollen painful right hand and left knee with bilateral shoulder pain History of Present Illness: 76M presents with swollen painful right hand and left knee with bilateral shoulder pain. He is found to have an elevated bilirubin to 3.0 with sonogram revealing that he has steatosis of the liver and a 10mm CBD. He denes any abdominal pain, nausea or vomiting. No fevers. He denies any h/o liver disease or having fallen. He did take about 10 Advil on and the day after for his tender swollen joints. He denies any falling or trauma. He quit alcohol and cigarettes " about 3 years ago". He did drink "beer and booze" daily after work in the past. He had a colonoscopy with Dr De La Fuente in 02/25 that revealed universal diverticulosis and led to the removal of a distal transverse colon adenoma. - History Source History Provided By: Patient Limitations to Obtaining History: Poor Historian - Past Medical History Cardio/Vascular: Yes: CAD, CHF, HTN, Hyperlipdemia, IA ("several years ago"), Pulmonary Hypertension, Other (defibrillator,s/p cardiac stent at [facility]) Gastrointestinal: Yes: Diverticulosis, Other (colon adenoma removed 02/19/16) Hepatobiliary: Yes: Cholelithiasis (s/p lap choly) Renal/: Yes: Renal Failure (chronic) Rheumatology: Yes: Gout Endocrine: Yes: Diabetes Mellitus - Past Surgical History Past Surgical History: Yes: AICD, Cholecystectomy, Colonoscopy - Alcohol/Substance Use Hx Alcohol Use: Yes (quit about 3 years ago) History of Substance Use: reports: None - Smoking History Smoking history: Former smoker Have you smoked in the past 12 months: No Aproximately how many cigarettes per day: 0 If you are a former smoker, when did you quit?: 2008 - Social History Usual Living Arrangement: Alone ADL: Independent 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 Place of : [facility] History of Recent Travel: No Home Medications - Allergies Allergies/Adverse Reactions: Allergies Allergy/AdvReac Type Severity Reaction Status Date / Time No Known Allergies Allergy Verified 01/02/17 08:34 - Home Medications Home Medications: Ambulatory Orders Aspirin [ASA -] 81 mg PO DAILY 01/02/17 Carvedilol [Coreg] 6.25 mg PO BID 01/02/17 Cholecalciferol (Vitamin D3) [Vitamin D3 -] 5,000 unit PO WEEKLY 01/02/17 Digoxin [Lanoxin -] 0.125 mg PO DAILY 01/02/17 Febuxostat [Uloric] 40 mg PO DAILY 01/02/17 Furosemide [Lasix] 20 mg PO DAILY 01/02/17 Gabapentin 300 mg PO DAILY 01/02/17 Glimepiride [Amaryl] 2 mg PO DAILY 01/02/17 Lipitor 10 mg PO HS 01/02/17 Omeprazole 40 mg PO DAILY 01/02/17 Tradjenta 5 mg PO DAILY 01/02/17 Vasotec 5 mg PO DAILY 01/02/17 Zolpidem Tartrate [Ambien] 5 mg PO HS 01/02/17 Family Disease History - Family Disease History Family Disease History: Diabetes: Mother ( age 87), Heart Disease: Father ( lived in his 90s) Review of Systems - Review of Systems Constitutional: reports: No Symptoms Eyes: reports: No Symptoms HENT: reports: No Symptoms Neck: reports: No Symptoms Cardiovascular: reports: Shortness of Breath Respiratory: reports: Exercise Intolerance, SOB on Exertion Gastrointestinal: reports: No Symptoms Genitourinary: reports: No Symptoms Musculoskeletal: reports: Extremity Pain, Joint Pain, Joint Swelling Neurological: reports: No Symptoms Physical Exam-GI Vital Signs: Vital Signs Temperature 97.2 F L 01/05/17 08:54 Pulse Rate 80 01/05/17 09:04 Respiratory Rate 16 01/05/17 08:54 Blood Pressure 121/66 01/05/17 08:54 O2 Sat by Pulse Oximetry (%) 98 01/05/17 02:00 CBC,CMP WBC 6.6 K/mm3 (4.0-10.0) 01/05/17 06:45 RBC 3.17 M/mm3 (4.00-5.60) L 01/05/17 06:45 Hgb 9.8 GM/dL (11.7-16.9) L 01/05/17 06:45 Hct 29.3 % (35.4-49) L 01/05/17 06:45 MCV 92.5 fl (80-96) 01/05/17 06:45 MCH 30.8 pg (25.7-33.7) 01/05/17 06:45 MCHC 33.3 g/dl (32.0-35.9) 01/05/17 06:45 RDW 12.7 % (11.9-15.9) 01/05/17 06:45 Plt Count 231 K/MM3 (134-434) 01/05/17 06:45 MPV 6.9 fl (7.5-11.1) L 01/05/17 06:45 Neutrophils % 67.4 % (42.8-82.8) 01/03/17 05:17 Lymphocytes % 20.0 % (8-40) D 01/03/17 05:17 Monocytes % 10.9 % (3.8-10.2) H 01/03/17 05:17 Eosinophils % 1.4 % (0-4.5) 01/03/17 05:17 Basophils % 0.3 % (0-2.0) 01/03/17 05:17 Manual Slide Review No Result Required. 01/05/17 06:45 ESR 78 mm/hr (0-20) H 01/02/17 09:48 Sodium 136 mmol/L (136-145) 01/05/17 06:45 Potassium 4.4 mmol/L (3.5-5.1) 01/05/17 06:45 Chloride 102 mmol/L (98-107) 01/05/17 06:45 Carbon Dioxide 30 mmol/L (21-32) 01/05/17 06:45 Anion Gap 4 (8-16) L 01/05/17 06:45 BUN 23 mg/dL (7-18) H D 01/05/17 06:45 Creatinine 1.7 mg/dL (0.7-1.3) H 01/05/17 06:45 Creat Clearance w eGFR 39.49 (>60) 01/05/17 06:45 POC Glucometer 253 UNITS (80-120) 01/05/17 11:32 Random Glucose 170 mg/dL (74-106) H D 01/05/17 06:45 Uric Acid 4.9 mg/dL (2.6-7.2) 01/02/17 09:55 Calcium 7.6 mg/dL (8.5-10.1) L 01/05/17 06:45 Magnesium 1.9 mg/dL (1.8-2.4) D 01/03/17 05:17 Total Bilirubin 2.6 mg/dL (0.2-1.0) H 01/05/17 06:45 Direct Bilirubin 1.6 mg/dL (0.0-0.2) H 01/05/17 06:45 AST 15 U/L (15-37) 01/05/17 06:45 ALT 13 U/L (12-78) 01/05/17 06:45 Alkaline Phosphatase 104 U/L (45-117) 01/05/17 06:45 Troponin I < 0.02 ng/ml (0.00-0.05) 01/02/17 09:48 C-Reactive Protein 11.1 MG/DL (0.00-0.3) H 01/02/17 09:55 Total Protein 6.2 g/dl (6.4-8.2) L 01/05/17 06:45 Albumin 2.7 g/dl (3.4-5.0) L 01/05/17 06:45 Current Medications Generic Name Dose Route Start Last Admin Trade Name Freq PRN Reason Stop Dose Admin Acetaminophen 325 mg 01/02/17 13:17 01/05/17 09:04 Tylenol - PO 325 mg Q6H PRN Administration PAIN Acetaminophen 650 mg 01/02/17 13:15 Tylenol - PO Q4H PRN FEVER OR PAIN Albuterol Sulfate 2 puff 01/02/17 13:12 Ventolin Hfa Inhaler - IH Q4H PRN SHORT OF BREATH/WHEEZING Aspirin 81 mg 01/03/17 10:00 01/05/17 09:03 Asa - PO 81 mg DAILY CLIVE Administration Atorvastatin Calcium 10 mg 01/02/17 22:00 01/04/17 21:04 Lipitor - PO 10 mg HS CLIVE Administration Carvedilol 6.25 mg 01/02/17 22:00 01/05/17 09:04 Coreg - PO 6.25 mg BID CLIVE Administration Digoxin 0.125 mg 01/03/17 10:00 01/05/17 09:04 Lanoxin - PO 0.125 mg DAILY CLIVE Administration Enalapril Maleate 5 mg 01/03/17 10:00 01/05/17 09:04 Vasotec - PO 5 mg DAILY CLIVE Administration Ergocalciferol 50,000 unit 01/04/17 10:00 01/04/17 09:21 Drisdol - PO 50,000 unit Benito@1000 CLIVE Administration Febuxostat 40 mg 01/03/17 10:00 01/05/17 09:03 Uloric - PO 40 mg DAILY CLIVE Administration Furosemide 20 mg 01/03/17 10:00 01/05/17 09:04 Lasix - PO 20 mg DAILY CLIVE Administration Gabapentin 300 mg 01/03/17 10:00 01/05/17 09:04 Neurontin - PO 300 mg DAILY CLIVE Administration Heparin Sodium (Porcine) 5,000 unit 01/03/17 22:00 01/05/17 09:02 Heparin - SQ 5,000 unit BID CLIVE Administration Insulin Aspart 1 vial 01/02/17 16:30 01/05/17 11:33 Novolog Vial Sliding Scale - SQ 6 units ACHS CLIVE Administration Protocol Oxycodone HCl 5 mg 01/02/17 13:17 01/05/17 09:03 Roxicodone - PO 5 mg Q6H PRN Administration PAIN Pantoprazole Sodium 40 mg 01/03/17 10:00 01/05/17 09:04 Protonix - PO 40 mg DAILY CLIVE Administration Prednisone 40 mg 01/04/17 20:15 01/05/17 09:02 Deltasone - PO 40 mg DAILY CLIVE Administration Zolpidem Tartrate 5 mg 01/02/17 22:00 01/04/17 21:04 Ambien - PO 5 mg HS PRN Administration INSOMNIA Constitutional: Yes: Calm Eyes: Yes: Conjunctiva Clear HENT: Yes: Atraumatic Neck: Yes: Trachea Midline Cardiovascular: Yes: Regular Rate and Rhythm, Murmur (2/6 TOM at LLSB), Other ( left sublavicular AICD) Respiratory: Yes: CTA Bilaterally Gastrointestinal Inspection: Yes: Scars (healed lap choly incisions) ...Auscultate: Yes: Normoactive Bowel Sounds ...Palpate: Yes: Soft, Other (nontender) ...Rectal Exam: Yes: Guaiac Negative Genitourinary: Yes: Other (2+prostate, no inguinal hernias) Musculoskeletal: Yes: Joint Swelling (left knee and right hand) Edema: Yes Edema: LLE: 1+, RLE: 1+ Neurological: Yes: Alert Labs: CBC, BMP 01/05/17 06:45 01/05/17 06:45 Laboratory Tests 01/02/17 01/02/17 01/04/17 09:48 09:55 07:30 WBC Hgb Hct MCV Plt Count ESR 78 H BUN Creatinine Uric Acid 4.9 Total Bilirubin 3.0 H Direct Bilirubin AST 16 ALT 13 Alkaline Phosphatase 110 C-Reactive Protein 11.1 H Albumin 2.9 L 01/05/17 01/05/17 06:45 06:45 WBC 6.6 Hgb 9.8 L Hct 29.3 L MCV 92.5 Plt Count 231 ESR BUN 23 H D Creatinine 1.7 H Uric Acid Total Bilirubin 2.6 H Direct Bilirubin 1.6 H AST 15 ALT 13 Alkaline Phosphatase 104 C-Reactive Protein Albumin Imaging - Results Ultrasound: Report Reviewed ([place] Name: RINA FRASER JR DEPARTMENT OF RADIOLOGY Phys: Lv Streeter MD : 1940 Age: 76 Sex: M [facility] Acct: [id number] Loc: [address] Exam Date: 01/02/17 Status: [place] [address] Unit Number: [id number] EXAM#: TYPE/EXAM : RESULT: [id number] US/ABDOMEN US -LIMITED Exam: Right upper quadrant abdominal sonogram Indication: Elevated bilirubin. Technique: Real-time grayscale and color Doppler sonogram of the right upper quadrant of the abdomen was performed by the technologist. Spectral Doppler was utilized to assess the portal vein. Images are submitted for review. Comparison: No prior abdominal sonogram. Correlation made to the 07/10/2015 CT abdomen/pelvis. Findings: The liver is not enlarged, measuring up to 11.7 cm. Hepatic parenchyma is echogenic with coarsened echotexture reflecting steatosis. Please note that echogenic hepatic parenchyma decreases sonographic sensitivity in detecting hepatic mass lesions, although no discrete hepatic mass identified. Status post cholecystectomy. The common bile duct is dilated, measuring up to 10 mm in diameter. There is no evidence of intrahepatic biliary ductal dilatation. The visualized portions the pancreatic head and body are grossly unremarkable. The pancreatic tail and portions of the pancreatic head and body are obscured by bowel gas and cannot be assessed. The right kidney is normal in size measuring 10.8 cm in length without hydronephrosis. Right renal cortex is echogenic and thinned/atrophic. There is a 2.0 x 1.3 x 1.3 cm exophytic cyst in the upper pole of the right kidney. No free fluid identified in the right upper quadrant of the abdomen. Upper abdominal aorta and IVC are grossly unremarkable, where imaged. The portal vein is patent, where imaged, with hepatopedal flow. Impression: 1. Status post cholecystectomy. Dilatation of the common bile duct measuring up to 10 mm in diameter, some of which may be physiologic change postcholecystectomy. Please correlate clinically with biliary markers. No significant intrahepatic ductal dilatation. 2. Suboptimal evaluation of the pancreatic head due to overlying bowel gas. 3. Hepatic steatosis. 4. Echogenic right renal cortex compatible with medical-renal disease. No right hydronephrosis. 2.0 cm simple appearing right renal cyst. Reported By : Marlene Tillman DO 01/02/17 1250 Technologist: Josefina Ellis Transcribed Date/Time: 01/02/17 1250 Zipper Setter: Marlene Tillman DO Printed Date/Time: By: Signed by: Marlene Tillman Signed on: 12:51) Problem List - Problems (1) Jaundice Assessment/Plan: Given the rapid drop from 3.0 to 2.6 suspect that this reflects congestive hepatopathy but cannot exclude DILI related to NSAID usage. Gallstone passage or malignant bile duct obstruction appear unlikely given normal alkaline phosphatase, improvement without intervention andlack of pain and weight loss. Unfortunately the AICD precludes an MRCP and CKD precludes a IV contrast CT. Will screen for other liver disease such as FERNANDEZ but suspect that steatosis reflects previous alcohol usage. Code(s): R17 - UNSPECIFIED JAUNDICE (2) Dilated bile duct Assessment/Plan: Suspect this is residual of previous GB surgery Code(s): K83.8 - OTHER SPECIFIED DISEASES OF BILIARY TRACT (3) Diverticulosis large intestine w/o perforation or abscess w/bleeding Code(s): K57.31 - DVRTCLOS OF LG INT W/O PERFORATION OR ABSCESS W BLEEDING (4) Anemia Assessment/Plan: Stool is guaiac negative and he had colonoscopy on 02/19/16 so I doubt GI tract losses but will check iron parameters. Code(s): D64.9 - ANEMIA, UNSPECIFIED Qualifiers: Anemia type: unspecified type Qualified Code(s): D64.9 - Anemia, unspecified
[2017-01-05 14:38] VITALS: BP 109/61; PULSE 71; TEMP 97.9
[2017-01-05 17:09] LABS: ALBUMIN 2.9 g/dl (3.4-5.0); BILIRUBIN,TOTAL 1.6 mg/dL (0.2-1.0); TOT PROT 6.9 g/dl (6.4-8.2)
--- NOTE | 2017-01-05 23:13 | EKG ---
Test Reason : Blood Pressure : / mmHG Vent. Rate : 079 BPM Atrial Rate : 079 BPM P-R Int : 200 ms QRS Dur : 174 ms QT Int : 372 ms P-R-T Axes : 065 -40 061 degrees QTc Int : 426 ms Atrial-sensed ventricular-paced rhythm ABNORMAL ECG WHEN COMPARED WITH ECG OF 28-MAY-2014 09:03, NO SIGNIFICANT CHANGE WAS FOUND Confirmed by CHRISTOPHER YOUSSEF MD ([id number]) on 01/05/2017 11:13:25 PM Referred By: Confirmed By:CHRISTOPHER YOUSSEF MD
== END 2017-01-05 18:09 | disposition home or self-care (01) ==
LOC: JERFT 08:14 → JER 08:14 → JERBED 11:34 → J6S 15:09
PROVIDERS: ADMIT Internal Medicine; ATTEND Nurse Practitioner Acute Care
PROC: 3E033NZ Introduction of Analgesics, Hypnotics, Sedatives into Peripheral Vein, Percutaneous Approach (ICD-10-PCS; principal; 2017-01-02)
PROC: 3E033GC Introduction of Other Therapeutic Substance into Peripheral Vein, Percutaneous Approach (ICD-10-PCS; 2017-01-02)
PROC: 3E0337Z Introduction of Electrolytic and Water Balance Substance into Peripheral Vein, Percutaneous Approach (ICD-10-PCS; 2017-01-02)
PROC: 3E013VG Introduction of Insulin into Subcutaneous Tissue, Percutaneous Approach (ICD-10-PCS; 2017-01-02)
PROC: 3E013GC Introduction of Other Therapeutic Substance into Subcutaneous Tissue, Percutaneous Approach (ICD-10-PCS; 2017-01-02)
DX: M13.0 Polyarthritis, unspecified (principal); M10.9 Gout, unspecified; N28.9 Disorder of kidney and ureter, unspecified; I12.9 Hypertensive chronic kidney disease with stage 1 through stage 4 chronic kidney disease, or unspecified chronic kidney disease; I42.9 Cardiomyopathy, unspecified; I50.42 Chronic combined systolic (congestive) and diastolic (congestive) heart failure; E11.22 Type 2 diabetes mellitus with diabetic chronic kidney disease; N18.3 Chronic kidney disease, stage 3 (moderate); E78.5 Hyperlipidemia, unspecified; I25.10 Atherosclerotic heart disease of native coronary artery without angina pectoris; D64.9 Anemia, unspecified; J44.9 Chronic obstructive pulmonary disease, unspecified; R17 Unspecified jaundice; K83.8 Other specified diseases of biliary tract; K57.31 Diverticulosis of large intestine without perforation or abscess with bleeding; Z79.4 Long term (current) use of insulin; E80.6 Other disorders of bilirubin metabolism; E83.42 Hypomagnesemia; E83.51 Hypocalcemia; Z87.39 Personal history of other diseases of the musculoskeletal system and connective tissue; Z95.810 Presence of automatic (implantable) cardiac defibrillator; Z87.891 Personal history of nicotine dependence; Z95.5 Presence of coronary angioplasty implant and graft; Z79.82 Long term (current) use of aspirin
CPT/HCPCS: 36415; 71020-TC; 73070-TC-RT; 73110-TC-RT; 73130-TC-RT; 76705-TC; 80048; 80053; 80074; 80076; 82248; 82306; 83735; 83970; 84484; 84550; 85025; 85027; 85651; 85730; 86038; 86140; 86431; 86618; 86803; 93005; 93010; 96361; 96372; 96374; 96375; 99282-25; G0378; J1644

== ENCOUNTER 2018-03-24 12:10 | Emergency (ER) | payer MEDICARE, OTHER ==
[2018-03-24 12:46] VITALS: BP 104/60; PULSE 103; TEMP 98.2; BMI 27.1
--- NOTE | 2018-03-24 13:36 | PDOC ---
History of Present Illness - General Chief Complaint: Weakness Stated Complaint: WEAKNESS, KNEE PAIN, UNABLE TO WALK Time Seen by Provider: 03/24/18 13:05 - History of Present Illness Initial Comments: 03/24/18 13:50 The patient is a 76 year old male, with a significant past medical history of hypertension, hyperlipidemia, coronary artery disease(s/p stents), myocardial infarction(s/p defibrillator placement), who presents to the emergency department complaining of right knee pain and difficulty walking for the past 3 days. the right knee pain has been worsening to the point where he can't bear weight anymore. Usually ambulates with a cane. Has been diagnosed in the past with gout (at least 10 years ago) currently is on Uloric. Compliant with medication. Previous visits in the ED for joint pain (left knee and hands). No trauma reported. Denies fall, fever, change in vision, chest pain, shortness of breath, dysuria. Admits to poor diet involving lot of pork products. Past History - Past Medical History Allergies/Adverse Reactions: Allergies Allergy/AdvReac Type Severity Reaction Status Date / Time No Known Allergies Allergy Verified 03/24/18 12:47 Home Medications: Ambulatory Orders Aspirin [ASA -] 81 mg PO DAILY 01/02/17 Carvedilol [Coreg] 6.25 mg PO BID 01/02/17 Cholecalciferol (Vitamin D3) [Vitamin D -] 5,000 unit PO WEEKLY 01/02/17 Digoxin [Lanoxin -] 0.125 mg PO DAILY 01/02/17 Febuxostat [Uloric] 40 mg PO DAILY 01/02/17 Furosemide [Lasix] 20 mg PO DAILY 01/02/17 Gabapentin 300 mg PO DAILY 01/02/17 Glimepiride [Amaryl] 2 mg PO DAILY 01/02/17 Lipitor 10 mg PO HS 01/02/17 Omeprazole 40 mg PO DAILY 01/02/17 Tradjenta 5 mg PO DAILY 01/02/17 Vasotec 5 mg PO DAILY 01/02/17 Zolpidem Tartrate [Ambien] 5 mg PO HS 01/02/17 predniSONE [Deltasone -] See Taper PO ASDIR #32 tab 01/05/17 predniSONE [Deltasone -] 40 mg PO DAILY #3 tablet 03/24/18 Anemia: Yes Asthma: No Cancer: No Cardiac Disorders: Yes (STENTS 2004 [place] CARDIOMYOPATHY, defibrillator) CVA: No COPD: Yes CHF: No Dementia: No Diabetes: Yes (IDDM) GI Disorders: No Disorders: Yes (URINARY FREQUENCY) HTN: Yes Hypercholesterolemia: Yes Liver Disease: No Seizures: No Thyroid Disease: Yes (NODULE) - Surgical History Abdominal Surgery: No Appendectomy: No Cardiac Surgery: Yes (PACEMAKER, CARDIAC STENT,DEFIBRILLATOR) Cholecystectomy: Yes (LAPAROSCOPIC) Lung Surgery: No Neurologic Surgery: No Orthopedic Surgery: No - Immunization History Immunization Up to Date: Yes - Suicide/Smoking/Psychosocial Hx Smoking Status: Yes Smoking History: Never smoked Have you smoked in the past 12 months: No Number of Cigarettes Smoked Daily: 0 If you are a former smoker, when did you quit?: 2008 Information on smoking cessation initiated: No 'Breaking Loose' booklet given: 02/19/16 Hx Alcohol Use: No Drug/Substance Use Hx: No Substance Use Type: None Hx Substance Use Treatment: No Review of Systems - Review of Systems Able to Perform ROS?: Yes Is the patient limited Macedonian proficient: No Constitutional: No: Symptoms Reported HEENTM: No: Symptoms Reported Respiratory: No: Symptoms reported Cardiac (ROS): No: Symptoms Reported ABD/GI: No: Symptoms Reported : No: Symptoms Reported Musculoskeletal: Yes: See HPI All Other Systems: Reviewed and Negative *Physical Exam - Vital Signs Last Vital Signs Temp Pulse Resp BP Pulse Ox 98.2 F 103 H 19 104/60 99 03/24/18 12:41 03/24/18 12:41 03/24/18 12:41 03/24/18 12:41 03/24/18 12:41 - Physical Exam General Appearance: Yes: Nourished, Appropriately Dressed. No: Apparent Distress HEENT: positive: EOMI, OTILIA, Normal ENT Inspection Respiratory/Chest: positive: Lungs Clear, Normal Breath Sounds, Hyperresonant. negative: Chest Tender, Respiratory Distress Cardiovascular: positive: Regular Rate, S1, S2 Vascular Pulses: Dorsalis-Pedis (R): 2+, Doralis-Pedis (L): 2+ Gastrointestinal/Abdominal: positive: Normal Bowel Sounds, Flat, Soft. negative : Tender Extremity: positive: Other (left knee warm, swollen and fluctuant. Tophus over right medial 1st metatarsal.) Moderate Sedation - Procedure Monitoring Vital Signs: Procedure Monitoring Vital Signs Temperature 98.2 F 03/24/18 12:41 Pulse Rate 103 H 03/24/18 12:41 Respiratory Rate 19 03/24/18 12:41 Blood Pressure 104/60 03/24/18 12:41 O2 Sat by Pulse Oximetry (%) 99 03/24/18 12:41 Procedures - Arthrocentesis Indication: Crystals (Gout/Psuedogout Arthrocentesis Site: right: knee Flexion: 20-30 degree Betadine Prep: Yes Sterile Dressing Applied: Yes Dry Tap: No Fluid Color: Straw colored Fluid Amount mL: 10 Anesthesia: 1% Lidocaine Needle Size (guage): 22g Complications: No ED Treatment Course - LABORATORY CBC & Chemistry Diagram: 03/24/18 14:11 03/24/18 14:11 Medical Decision Making - Medical Decision Making 03/24/18 15:00 The patient is a 76 year old male, with a significant past medical history of hypertension, hyperlipidemia, coronary artery disease(s/p stents), myocardial infarction(s/p defibrillator placement), and gout who presents to the emergency department complaining of right knee pain for the past 3 days. Gouty joint vs pseudogout vs septic joint. We will need to differentiate between gout and septic joint before administering prednisone. 1 percocet administred for pain control. Basicl labs pending. Arthrocentesis performed sucessfully, synovial fluid sent for analysis. Results pending. If septic will treat with abx, if gout, prednisone. 03/24/18 17:07 [place] [id number], likely Gouty. Will give prednisone (renal function not good enough for colchicine or nsaids) and send home for 3 days therapy and follow up with primary care provider and groover and turner. *DC/Admit/Observation/Transfer Diagnosis at time of Disposition: Gout attack - Discharge Dispostion Disposition: HOME Condition at time of disposition: Improved Decision to Admit order: No - Prescriptions Prescriptions: predniSONE [Deltasone -] 40 mg PO DAILY #3 tablet - Referrals Referrals: Yane Connolly MD [Primary Care Provider] - - Patient Instructions Printed Discharge Instructions: DI for Gout, Gout (Alternative Therapy), Gout Additional Instructions: Follow up with your primary care provider within the next 2-3 days as well as your groover and turner Dr. Connolly. Low purine diet recommended. (See patient education) spa supervisor prescription from the pharmacy and take accordingly. Come back to the emergency department for any new, worsening or concerning symptoms. - Post Discharge Activity
--- NOTE | 2018-03-24 13:40 | PDOC ---
Attending Attestation - HPI HPI: 03/24/18 13:41 The patient is a 77 year old male, with a significant past medical history of htn, hld, CAD s/p stents, DC s/p defibrillator, and gout, who presents to the emergency department with progressive right knee pain for 3 days.He states he can not bear weight on the right secondary to pain. He states this feels like his gout. The patient denies chest pain, shortness of breath, headache and dizziness. The patient denies fever, chills, nausea, vomit, diarrhea and constipation. The patient denies dysuria, frequency, urgency and hematuria. Allergies: NKDA <Morenzi,Cira - Last Filed: 03/24/18 13:41> - Resident Resident Name: Rosalio Faria - ED Attending Attestation I have performed the following: I have examined & evaluated the patient, The case was reviewed & discussed with the resident, I agree w/resident's findings & plan, Exceptions are as noted - Physicial Exam PE: 03/24/18 13:40 GENERAL: The patient is in no acute distress. HEAD: Normal with no signs of trauma. EYES: PERRLA, EOMI, sclera anicteric, conjunctiva clear. ENT: Ears normal, nares patent, oropharynx clear without exudates. Moist mucous membranes. NECK: Normal range of motion, supple without lymphadenopathy, JVD, or masses. LUNGS: Breath sounds equal, clear to auscultation bilaterally. No wheezes, and no crackles. HEART:Regular rate and rhythm, normal S1 and S2 without murmur, rub or gallop. ABDOMEN: Soft, nontender, normoactive bowel sounds. No guarding, no rebound. No masses palpable. EXTREMITIES: Normal range of motion, no edema. No clubbing or cyanosis. No erythema, or tenderness. NEUROLOGICAL: Cranial nerves II through XII grossly intact. Normal speech. No focal neurological deficits. MUSCULOSKELETAL: Back non-tender to palpation, no CVA tenderness SKIN: Warm, Dry, normal turgor, no rashes or lesions noted. - Medical Decision Making 03/24/18 17:05 Laboratory Tests 03/24/18 03/24/18 03/24/18 14:11 14:11 14:44 WBC 7.2 Hgb 11.8 Hct 34.6 L D Plt Count 199 ESR 92 H Sodium 134 L Potassium 4.0 Chloride 100 Carbon Dioxide 26 BUN 47 H Creatinine 2.1 H Uric Acid 4.7 Urine Ketones Urine Blood Ur Leukocyte Esterase Synovial Source Righ knee Synovial WBC 24,504 Synovial RBC 1,918 03/24/18 14:48 WBC Hgb Hct Plt Count ESR Sodium Potassium Chloride Carbon Dioxide BUN Creatinine Uric Acid Urine Ketones Negative Urine Blood Negative Ur Leukocyte Esterase Negative Synovial Source Synovial WBC Synovial RBC RIght knee arthrocentesis by Dr Faria using sterile technique Unlikely septic arthritis given WBC 50 - 150k Will discharge on Prednisone, Tylenol will ask pt to follow up with PMD and Renal <Roma Nguyen - Last Filed: 03/24/18 18:36> Attestations - Attestations 03/24/18 13:41 Documentation prepared by Cira Hobbs, acting as medical illustrator for Roma Nguyen MD <Cira Hobbs - Last Filed: 03/24/18 13:41>
[2018-03-24] MEDS ORDERED: predniSONE 10 MG TABLET (UD) PO ONE (13:52)
[2018-03-24] MEDS ORDERED: predniSONE 10 MG TABLET (UD) ONE (14:14)
[2018-03-24] MEDS ORDERED: predniSONE 20 MG TABLET (UD) ONE ×2 (14:14→17:10)
[2018-03-24 14:53] LABS: BASO % 0.2 % (0-2.0); EOS % 1.3 % (0-4.5); HEMATOCRIT 34.6 % (35.4-49); HEMOGLOBIN 11.8 GM/dL (11.7-16.9); LYMPH % 20.6 % (8-40); MCH 32.8 pg (25.7-33.7); MCHC 34.2 g/dl (32.0-35.9); MEAN PLT VOLUME 7.3 fl (7.5-11.1); MONO % 10.6 % (3.8-10.2); NEUT % 67.3 % (42.8-82.8); PLATELET COUNT 199 K/MM3 (134-434); RBC 3.61 M/mm3 (4.00-5.60); RDW 14.6 % (11.9-15.9); WHITE BLOOD COUNT 7.2 K/mm3 (4.0-10.0)
[2018-03-24 14:56] LABS: ALBUMIN 3.4 g/dl (3.4-5.0); ALK PHOS 110 U/L (45-117); ANION GAP 8 MMOL/L (8-16); BILIRUBIN,TOTAL 1.2 mg/dL (0.2-1); BLOOD UREA NITROGEN 47 mg/dL (7-18); CALCIUM 8.8 mg/dL (8.5-10.1); CHLORIDE 100 mmol/L (98-107); CO2 26 mmol/L (21-32); CREATININE 2.1 mg/dL (0.55-1.3); GLUCOSE,RANDOM 99 mg/dL (74-106); SGOT/AST 27 U/L (15-37); SGPT/ALT 18 U/L (13-61); SODIUM 134 mmol/L (136-145); URIC ACID 4.7 mg/dL (2.6-7.2)
[2018-03-24 15:17] LABS: ERYTHROCYTE SEDIMENTATION RATE 92 mm/hr (0-20)
[2018-03-24 15:25] LABS: URINE APPEARANCE CLEAR; URINE BILIRUBIN NEGATIVE (<2.0 mg/dL); URINE COLOR YELLOW; URINE GLUCOSE (UA) NEGATIVE (NEGATIVE); URINE KETONE NEGATIVE (NEGATIVE); URINE LEUK ESTERASE NEGATIVE (NEGATIVE); URINE NITRITE NEGATIVE (NEGATIVE); URINE PROTEIN NEGATIVE (NEGATIVE)
[2018-03-24 16:12] LABS: SYNOVIAL FLUID SOURCE RIGH KNEE
[2018-03-24] MEDS ORDERED: SODIUM CHLORIDE 1,000 ML IV STA (16:44)
[2018-03-24 17:07] LABS: CRYSTALS,SYNOVIAL FLUID RARE MSU
[2018-03-24] MEDS ORDERED: predniSONE 20 MG TABLET (UD) PO ONE (17:09)
[2018-03-24 17:47] LABS: SYNOVIAL FLUID NEUTROPHILS 99 %
--- NOTE | 2018-03-24 20:11 | CONSULT ---
Consult - text type - Consultation Consultation Note: ORTHOPEDIC SURGERY CONSULTATION NOTE Department of Orthopedic Surgery HISTORY OF PRESENT ILLNESS Rick Toth is a 77 year old male with multiple medical comorbidities who presents to [facility] with right knee and great toe pain. The orthopedic service was consulted to rule out septic arthritis. The pain started 3 days ago. The patient has a history of gout and has had multiple gout flares in both knees and the right great toe in the past. He takes medication for gout that is prescribed by his primary medical doctor. The patient denies any injury. The patient notes sharp pain to the right knee and great toe. Denies any other joint pain. Denies numbness, tingling or other constitutional complaints. The patient lives with family and uses a cane at baseline. Active Problems Problem Status Category Onset Gout attack Acute Medical Past Medical History Cardio/Vascular CAD,CHF,HTN,Hyperlipdemia,OK,Pulmonary Hypertension,Other Gastrointestinal Diverticulosis,Other Hepatobiliary Cholelithiasis Renal/ Renal Failure Rheumatology Gout Endocrine Diabetes Mellitus Past Surgical History Past Surgical History AICD,Cholecystectomy,Colonoscopy Social History Smoking history Never smoked Aproximately how many 0 cigarettes per day If you are a former smoker, 2009 when did you quit? 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 History of Recent Travel No Allergies Allergy/AdvReac Type Severity Reaction Status Date / Time No Known Allergies Allergy Verified 03/24/18 12:47 Vital Signs (last) Temp Pulse Resp BP Pulse Ox 98.2 F 103 H 19 104/60 99 03/24/18 12:41 03/24/18 12:41 03/24/18 12:41 03/24/18 12:41 03/24/18 12:41 Intake and Output 03/22/18 03/23/18 03/24/18 23:59 23:59 23:59 Other: Weight 195 lb Height 5 ft 11 in Body Mass Index (BMI) 27.1 Weight Measurement Method Standing Scale Laboratory 03/24/18 14:11 03/24/18 14:11 FAMILY HISTORY Unknown REVIEW OF SYMPTOMS A twelve-point review of systems was performed and was negative except as noted in HPI. PHYSICAL EXAM Constitutional: Alert and oriented to person, place, and time. No acute distress , appropriate mood and affect. Right Upper Extremity: No tenderness to palpation. Full passive and active ROM, free from pain. Left Upper Extremity: No tenderness to palpation. Full passive and active ROM, free from pain. Right Lower Extremity: Right knee effusion. Skin warm, dry, and intact; no lesions, rashes or ulcers noted. Muscle mass equal and symmetric to contralateral side. No atrophy noted. Mild tenderness to palpation at the knee and MTP joint of great toe; nontender throughout rest of extremity. No cords or calf tenderness No significant calf/ankle edema. Knee ROM 20-90 with minimal pain; Joints stable with no pathologic laxity. EHL/TA/GS motor intact; SILT distally; 2+ DP pulses; Cap refill brisk. Tone and reflexes normal. Left Lower Extremity: Skin warm, dry, and intact; no lesions, rashes or ulcers noted. Muscle mass equal and symmetric to contralateral side. No atrophy noted. No masses or effusions noted. No tenderness to palpation. No cords or calf tenderness. No significant calf/ankle edema. Full passive and active ROM, free from pain. Joints stable with no pathologic laxity. EHL/TA/GS motor intact; SILT distally; 2+ DP pulses; Cap refill brisk. Tone and reflexes normal. IMAGING I personally reviewed radiographs of the right knee, 2 views. They demonstrate mild to moderate osteoarthritis with an effusion. ASSESSMENT AND PLAN Rick Toth is a 77 year old male presenting with right knee and great toe pain and atraumatic knee effusion. We have reviewed the imaging and clinical findings in detail, as well as their potential implications. The patient's knee was aspirated by the ED staff prior to me evaluating him. Synovial fluid aspiration results are positive for MSU crystals consistent with gout. Clinical exam and synovial fluid cell count (24,504) consistent with gout ; low suspicion for septic arthritis. Gram stain and culture not ordered, however we notified the lab to add these on to the specimens. The patient is refusing re-aspiration. - FU synovial fluid results: culture, gram stain - No acute orthopedic intervention at this time - WBAT - Medical management for gout All questions were answered. Thank you for involving our team in the care of this patient. The patient can follow up as an outpatient in 1-2 weeks. He was advised to return to the ED if his symptoms and/or signs worsen. Please call us at [phone] with questions.
== END 2018-03-24 20:04 | disposition home or self-care (01) ==
LOC: JER 12:10
PROC: 3E0337Z Introduction of Electrolytic and Water Balance Substance into Peripheral Vein, Percutaneous Approach (ICD-10-PCS; principal; 2018-03-24)
DX: M10.9 Gout, unspecified (principal); I10 Essential (primary) hypertension; E78.5 Hyperlipidemia, unspecified; I25.10 Atherosclerotic heart disease of native coronary artery without angina pectoris; Z95.5 Presence of coronary angioplasty implant and graft; E11.9 Type 2 diabetes mellitus without complications; E07.9 Disorder of thyroid, unspecified; Z87.891 Personal history of nicotine dependence; I25.2 Old myocardial infarction
CPT/HCPCS: 36415; 73562-TC-RT-FY; 80053; 81003; 84550; 85025; 85651; 87070; 87075; 87205; 89051; 89060; 99281-25; 99283-25; J7030

== ENCOUNTER 2018-06-16 15:39 | Observation (INO) | payer OTHER ==
[2018-06-16] MEDS ORDERED: ASPIRIN 81 MG CHEWABLE TABLETS PO ONE (15:46)
--- NOTE | 2018-06-16 15:46 | PDOC ---
Rapid Medical Evaluation Time Seen by Provider: 06/16/18 15:44 Medical Evaluation: Allergies Allergy/AdvReac Type Severity Reaction Status Date / Time No Known Allergies Allergy Verified 03/24/18 12:47 06/16/18 15:45 HPI:CP and SOB PE: SOB ORDERS:Cardiac work up Discharge Disposition - Diagnosis Chest pain - Referrals - Patient Instructions - Post Discharge Activity
[2018-06-16] MEDS ORDERED: ASPIRIN 81 MG CHEWABLE TABLETS ONE (16:11)
[2018-06-16 16:53] LABS: BASO % 0.6 % (0-2.0); EOS % 2.7 % (0-4.5); HEMATOCRIT 40.6 % (35.4-49); MCH 30.9 pg (25.7-33.7); MCHC 32.1 g/dl (32.0-35.9); MEAN CELL VOLUME 96.1 fl (80-96); MEAN PLT VOLUME 7.6 fl (7.5-11.1); MONO % 7.7 % (3.8-10.2); PLATELET COUNT 202 K/MM3 (134-434); RBC 4.22 M/mm3 (4.00-5.60); RDW 15.3 % (11.9-15.9); WHITE BLOOD COUNT 5.1 K/mm3 (4.0-10.0)
[2018-06-16 17:06] LABS: INR 1.49 (0.83-1.09); PROTHROMBIN TIME (PATIENT) 17.7 SEC (9.7-13.0)
[2018-06-16 17:20] LABS: ALBUMIN 4.1 g/dl (3.4-5.0); BILIRUBIN,TOTAL 1.4 mg/dL (0.2-1); CREATININE 2.7 mg/dL (0.55-1.3); MAGNESIUM 2.2 mg/dL (1.8-2.4); TOT PROT 7.7 g/dl (6.4-8.2)
[2018-06-16 17:58] LABS: N-TERMINAL BNP 38284.4 pg/ml (5-450)
[2018-06-16] MEDS ORDERED: ENOXAPARIN NA (PORCINE) 80 MG/0.8 ML DISP.SYRIN SQ ONE ×2 (19:08→20:47)
[2018-06-16] MEDS ORDERED: SODIUM CHLORIDE 250 ML IV STA ×2 (19:15→22:23)
[2018-06-16] MEDS ORDERED: DIGOXIN 0.25 MG TABLET (FP) PO ONE (20:08)
--- NOTE | 2018-06-16 20:08 | PDOC ---
Documentation entered by Anel Zimmerman SCRIBE, acting as scribe for Dilan Brothers MD. Dilan Brothers MD: This documentation has been prepared by the Erasmo herron Daisy, SCRIBE, under my direction and personally reviewed by me in its entirety. I confirm that the documentation accurately reflects all work, treatment, procedures, and medical decision making performed by me. Attending Attestation - Resident Resident Name: Duane Reid - ED Attending Attestation I have performed the following: I have examined & evaluated the patient, The case was reviewed & discussed with the resident, I agree w/resident's findings & plan - HPI HPI: 06/16/18 18:30 The patient is a 77YOM with a PMH of HTN, HLD, CAD s/p stents, IA s/p defibrillator, and gout who presents to the ER with shortness of breath. He was recently discharged from [facility] after being admitted for elevated troponin. Denies any leg swelling, orthopnea, chest pain, fever, chills, nausea, vomit, diarrhea and constipation. Allergies: NKDA PCP: Dr. Simmons - Physicial Exam PE: 06/16/18 20:05 Patient is awake and alert, well-nourished, dyspneic and tachypneic Normocephalic, atraumatic PERRLA, EOMI, conjunctiva are pink No JVD CTA Tachycardic,RRR No lower extremity edema - Medical Decision Making 06/16/18 20:06 77-year-old male with history of cardiomyopathy, status post AICD placement, diabetes, presents with dyspnea, tachypnea and tachycardia for the past several days. EKG is paced with a left bundle branch block which is unchanged from previous. Chest x-ray reveals cardiomegaly but no evidence of edema. Cephalization is noted. CBC reveals no significant leukocytosis. CMP reveals elevated BUN/creatinine consistent with ELLIOTT superimposed on CK deep. BNP significantly elevated. Differential diagnoses includes ACS versus PE. Acute CHF exacerbation is highly unlikely given no overt evidence of fluid overload. Patient is also noted to be borderline hypotensive. I suspect aggressive diuresis. We'll judiciously hydrate. We'll administer subcutaneous Lovenox for treatment of suspected PE. Will obtain lower extremity Doppler ultrasound. Will admit. 06/16/18 22:40 Patient is resting comfortably. Bedside echo revealed no evidence of pericardial effusion. Bilateral Doppler of the lower extremity shows no evidence of DVT. Will admit.
[2018-06-16] MEDS ORDERED: DIGOXIN 0.5 MG/2 ML AMPUL ONE (20:46)
[2018-06-16] MEDS ORDERED: DIGOXIN 0.25 MG TABLET (FP) ONE (20:49)
--- NOTE | 2018-06-16 22:28 | PN ---
Teaching Attending Note Name of Resident: Chantale Harris ATTENDING PHYSICIAN STATEMENT I saw and evaluated the patient. I reviewed the resident's note and discussed the case with the resident. I agree with the resident's findings and plan as documented. SUBJECTIVE: Patient is a 77 year old man with PMH of cardiomyopathy, status post AICD placement, NIDDM, HTN, HLD, CAD s/p stents, ME s/p defibrillator and gout presents with dyspnea, tachypnea and tachycardia for the past several days. He was recently discharged from [facility] after being admitted for elevated troponin. Denies any leg swelling, orthopnea, chest pain, fever, chills, nausea , vomiting, diarrhea and constipation. Noted to be hypotensive in the ER, and bedside ECHO revealed no evidence of pericardial effusion. Bilateral Doppler of the lower extremity shows no evidence of DVT. OBJECTIVE: Alert Vital Signs Period Temp Pulse Resp BP Sys/Robbins Pulse Ox Last 24 Hr 98.5 F 106-115 18 94/69 97-99 HEENT: No Jaundice, eye redness or discharge, PERRLA, EOMI. Normocephalic, atraumatic. External ears are normal and hearing is grossly intact. No nasal discharge. Neck: Supple, nontender. No palpable adenopathy or thyromegaly. No JVD Chest: Good effort. Clear to auscultation and percussion. Heart: Regular. No S3, rub or murmur Abdomen: Not distended, soft, nontender and no HSM. No rebound or guarding. Normal bowel sounds. Ext: Peripheral pulses intact. No leg edema. Skin: Warm and dry. No petechiae, rash or ecchymosis. Neuro: Alert. Oriented x3. CN 2-12 grossly intact. Sensation grossly intact in all four extremities and DTR are symmetric. Psych: Appropriate mood and affect. Good insight. Current Medications Generic Name Dose Route Start Last Admin Trade Name Freq PRN Reason Stop Dose Admin Sodium Chloride 250 mls @ 250 mls/hr 06/16/18 22:23 Normal Saline - IV 06/16/18 23:22 ASDIR STA Home Medications Medication Instructions Recorded Aspirin [ASA -] 81 mg PO DAILY 01/02/17 Carvedilol [Coreg] 6.25 mg PO BID 01/02/17 Cholecalciferol (Vitamin D3) 5,000 unit PO WEEKLY 01/02/17 [Vitamin D -] Digoxin [Lanoxin -] 0.125 mg PO DAILY 01/02/17 Febuxostat [Uloric] 40 mg PO DAILY 01/02/17 Furosemide [Lasix] 20 mg PO DAILY 01/02/17 Gabapentin 300 mg PO DAILY 01/02/17 Glimepiride [Amaryl] 2 mg PO DAILY 01/02/17 Lipitor 10 mg PO HS 01/02/17 Omeprazole 40 mg PO DAILY 01/02/17 Tradjenta 5 mg PO DAILY 01/02/17 Vasotec 5 mg PO DAILY 01/02/17 Zolpidem Tartrate [Ambien] 5 mg PO HS 01/02/17 predniSONE [Deltasone -] See Taper PO ASDIR #32 tab 01/05/17 Prednisone [Deltasone] 40 mg PO DAILY #3 tablet 03/25/18 Abnormal Lab Results 06/16/18 06/16/18 06/16/18 16:31 16:31 16:31 MCV 96.1 H PT with INR 17.70 H INR 1.49 H Sodium 132 L BUN 52 H Creatinine 2.7 H Random Glucose 135 H Total Bilirubin 1.4 H ALT 66 H B-Natriuretic Peptide 61368.4 H TSH Digoxin 06/16/18 18:00 MCV PT with INR INR Sodium BUN Creatinine Random Glucose Total Bilirubin ALT B-Natriuretic Peptide TSH 4.14 H Digoxin 0.40 L ASSESSMENT AND PLAN: 1. Rule out Pulmonary Embolism - Because of CKD, cannot get a CTA to rule out PE. Possible that hypotension and tachycardia are due to excessive diuresis from recent stay at [facility]. He got 500 ml of IV NS bolus in the ER as well as full dose Lovenox for empiric treatment of PE. Will avoid further lovenox use in view of CKD and if VQ scan shows PE will treat with IV heparin. No acute abnormality on CXR and EKG shows a paced rhythm, tachycardia with no significant ST-T wave changes and no changes compared to prior EKGs. ECHO from showed global hypokinesis with significant reduction in LV function. Will admit to telemetry, rule out ACS, get ECHO and consult pulmonary. Hold lasix, get UA, d-dimer and get free T4 and T3 to investigate elevated TSH. Abdominal sonogram to investigate elevated bilirubin and azotemia. 2. DM For now, we will hold the home diabetes drugs and implement sliding scale insulin regimen. Provide comprehensive diabetes care with patient teaching and counseling about the importance of adherence to prescribed diabetes regimen, euglycemia, eye care and foot care. 3. ELLIOTT? - May be partly due to excessive diuresis and poor LV function. Will hold lasix/vasotec, encourage PO fluids, monitor urine output, get kidney sonogram, PTH and phophate. Consult nephrology and avoid nephrotoxic agents such as NSAIDS, aminoglycosides, contrast dyes and certain Alternative medicine products. 4. Hypertension - Restart outpatient antihypertensive drugs when clinically appropriate. Nonpharmacologic measures to control hypertension like weight loss , salt restriction and exercise discussed. 5. DVT prophylaxis - Heparin 5000u sq tid. 6. Advance directives - Full code
--- NOTE | 2018-06-16 22:43 | PDOC ---
*Physical Exam - Vital Signs Last Vital Signs Temp Pulse Resp BP Pulse Ox 98.5 F 108 H 18 94/69 97 06/16/18 15:46 06/16/18 19:30 06/16/18 15:46 06/16/18 15:46 06/16/18 19:30 - Physical Exam Comments: 06/16/18 22:42 please see attending note. ED Treatment Course - LABORATORY CBC & Chemistry Diagram: 06/16/18 16:31 06/16/18 16:31 - ADDITIONAL ORDERS Additional order review: Laboratory Results 06/16/18 06/16/18 06/16/18 18:00 16:31 16:31 PT with INR 17.70 H INR 1.49 H Sodium 132 L Potassium 5.0 Chloride 100 Carbon Dioxide 22 Anion Gap 10 BUN 52 H Creatinine 2.7 H Est GFR (CKD-EPI)AfAm 25.39 Est GFR (CKD-EPI)NonAf 21.90 Random Glucose 135 H Calcium 9.0 Magnesium 2.2 Total Bilirubin 1.4 H AST 36 ALT 66 H Alkaline Phosphatase 82 Creatine Kinase 167 Creatine Kinase Index 1.3 CK-MB (CK-2) 2.3 Troponin I 0.03 B-Natriuretic Peptide 86400.4 H Total Protein 7.7 Albumin 4.1 TSH 4.14 H Digoxin 0.40 L 06/16/18 16:31 RBC 4.22 MCV 96.1 H MCHC 32.1 RDW 15.3 MPV 7.6 Neutrophils % 51.0 D Lymphocytes % 38.0 D Monocytes % 7.7 Eosinophils % 2.7 D Basophils % 0.6 - Medications Given in the ED: ED Medications Discontinued Medications Generic Name Dose Route Start Last Admin Trade Name Freq PRN Reason Stop Dose Admin Aspirin 162 mg 06/16/18 15:46 06/16/18 16:13 Asa - PO 06/16/18 15:47 162 mg ONCE ONE Administration Digoxin 0.5 mg 06/16/18 20:08 06/16/18 20:56 Lanoxin - PO 06/16/18 20:09 0.5 mg ONCE ONE Administration Enoxaparin Sodium 80 mg 06/16/18 19:08 06/16/18 20:56 Lovenox - SQ 06/16/18 19:09 80 mg ONCE ONE Administration Sodium Chloride 250 mls @ 250 mls/hr 06/16/18 19:15 06/16/18 20:56 Normal Saline - IV 06/16/18 20:14 250 mls/hr ASDIR STA Administration *DC/Admit/Observation/Transfer Diagnosis at time of Disposition: ELLIOTT (acute kidney injury) Dyspnea Qualifiers: Dyspnea type: unspecified Qualified Code(s): R06.00 - Dyspnea, unspecified - Discharge Dispostion Condition at time of disposition: Fair Decision to Admit order: Yes - Referrals Referrals: Matteo Simmons PA [Primary Care Provider] - - Patient Instructions - Post Discharge Activity
--- NOTE | 2018-06-16 23:17 | PDOC ---
History of Present Illness - General Chief Complaint: Shortness of Breath Stated Complaint: SOB Time Seen by Provider: 06/16/18 15:44 Past History - Past Medical History Allergies/Adverse Reactions: Allergies Allergy/AdvReac Type Severity Reaction Status Date / Time No Known Allergies Allergy Verified 06/16/18 15:46 Home Medications: Ambulatory Orders Aspirin [ASA -] 81 mg PO DAILY 01/02/17 Carvedilol [Coreg] 6.25 mg PO BID 01/02/17 Cholecalciferol (Vitamin D3) [Vitamin D -] 5,000 unit PO WEEKLY 01/02/17 Digoxin [Lanoxin -] 0.125 mg PO DAILY 01/02/17 Febuxostat [Uloric] 40 mg PO DAILY 01/02/17 Furosemide [Lasix] 20 mg PO DAILY 01/02/17 Gabapentin 300 mg PO DAILY 01/02/17 Glimepiride [Amaryl] 2 mg PO DAILY 01/02/17 Lipitor 10 mg PO HS 01/02/17 Omeprazole 40 mg PO DAILY 01/02/17 Tradjenta 5 mg PO DAILY 01/02/17 Vasotec 5 mg PO DAILY 01/02/17 Zolpidem Tartrate [Ambien] 5 mg PO HS 01/02/17 predniSONE [Deltasone -] See Taper PO ASDIR #32 tab 01/05/17 Prednisone [Deltasone] 40 mg PO DAILY #3 tablet 03/25/18 Anemia: Yes Asthma: No Cancer: No Cardiac Disorders: Yes (STENTS 2004 [place] CARDIOMYOPATHY, defibrillator) CVA: No COPD: Yes CHF: No Dementia: No Diabetes: Yes (IDDM) GI Disorders: No Disorders: Yes (URINARY FREQUENCY) HTN: Yes Hypercholesterolemia: Yes Liver Disease: No Seizures: No Thyroid Disease: Yes (NODULE) - Surgical History Abdominal Surgery: No Appendectomy: No Cardiac Surgery: Yes (PACEMAKER, CARDIAC STENT,DEFIBRILLATOR) Cholecystectomy: Yes (LAPAROSCOPIC) Lung Surgery: No Neurologic Surgery: No Orthopedic Surgery: No - Immunization History Immunization Up to Date: Yes - Suicide/Smoking/Psychosocial Hx Smoking Status: Yes Smoking History: Never smoked Have you smoked in the past 12 months: No Number of Cigarettes Smoked Daily: 0 If you are a former smoker, when did you quit?: 2008 Information on smoking cessation initiated: No 'Breaking Loose' booklet given: 02/19/16 Hx Alcohol Use: No Drug/Substance Use Hx: No Substance Use Type: None Hx Substance Use Treatment: No *Physical Exam - Vital Signs Last Vital Signs Temp Pulse Resp BP Pulse Ox 98.5 F 108 H 18 94/69 97 06/16/18 15:46 06/16/18 19:30 06/16/18 15:46 06/16/18 15:46 06/16/18 19:30 ED Treatment Course - LABORATORY CBC & Chemistry Diagram: 06/16/18 16:31 06/16/18 16:31 - ADDITIONAL ORDERS Additional order review: Laboratory Results 06/16/18 06/16/18 06/16/18 18:00 16:31 16:31 PT with INR 17.70 H INR 1.49 H Sodium 132 L Potassium 5.0 Chloride 100 Carbon Dioxide 22 Anion Gap 10 BUN 52 H Creatinine 2.7 H Est GFR (CKD-EPI)AfAm 25.39 Est GFR (CKD-EPI)NonAf 21.90 Random Glucose 135 H Calcium 9.0 Magnesium 2.2 Total Bilirubin 1.4 H AST 36 ALT 66 H Alkaline Phosphatase 82 Creatine Kinase 167 Creatine Kinase Index 1.3 CK-MB (CK-2) 2.3 Troponin I 0.03 B-Natriuretic Peptide 01070.4 H Total Protein 7.7 Albumin 4.1 TSH 4.14 H Digoxin 0.40 L 06/16/18 16:31 RBC 4.22 MCV 96.1 H MCHC 32.1 RDW 15.3 MPV 7.6 Neutrophils % 51.0 D Lymphocytes % 38.0 D Monocytes % 7.7 Eosinophils % 2.7 D Basophils % 0.6 - RADIOLOGY Radiology Studies Ordered: Category Date Time Status CHEST X-RAY PORTABLE* [RAD] Stat Radiology 06/16/18 17:07 Completed DUPLEX VASCUL US-2LEGS [US] Stat Ultrasound 06/16/18 19:09 Completed - Medications Given in the ED: ED Medications Discontinued Medications Generic Name Dose Route Start Last Admin Trade Name Freq PRN Reason Stop Dose Admin Aspirin 162 mg 06/16/18 15:46 06/16/18 16:13 Asa - PO 06/16/18 15:47 162 mg ONCE ONE Administration Digoxin 0.5 mg 06/16/18 20:08 06/16/18 20:56 Lanoxin - PO 06/16/18 20:09 0.5 mg ONCE ONE Administration Enoxaparin Sodium 80 mg 06/16/18 19:08 06/16/18 20:56 Lovenox - SQ 06/16/18 19:09 80 mg ONCE ONE Administration Sodium Chloride 250 mls @ 250 mls/hr 06/16/18 19:15 06/16/18 20:56 Normal Saline - IV 06/16/18 20:14 250 mls/hr ASDIR STA Administration *DC/Admit/Observation/Transfer Diagnosis at time of Disposition: ELLIOTT (acute kidney injury) Dyspnea Qualifiers: Dyspnea type: unspecified Qualified Code(s): R06.00 - Dyspnea, unspecified - Discharge Dispostion Condition at time of disposition: Fair - Referrals - Patient Instructions - Post Discharge Activity
--- NOTE | 2018-06-16 23:50 | HP ---
CHIEF COMPLAINT: dyspnea PCP: HISTORY OF PRESENT ILLNESS: Patient is a 77 y/o male with a history of HTN, HLD, CAD s/p stents, VT s/p defribilator, gout, and DM who presents for dyspnea. Patient was recently admitted to [facility] and treated, he was discharged yesterday. Patient is a poor historian and does not know what they did for him. Today he started to feel short of breath and "off". It did not last all day and it was not with activity. When asked how far patient can walk he replies, he doesnt walk but spends his time in his car. He doesnt know his baseline blood pressure, he follows with Dr Yane Connolly as his chief business development officer an with a clinical data assistant on [address]. He currently denies any shortness of breath, discomfort, chest pain, nausea, swelling, or increased discomfort. ER course was notable for: (1) 2 X 250 ml bolus (2) (3) Recent Travel: PAST MEDICAL HISTORY: HTN, HLD, CAD s/p stents, VT s/p defribilator, gout, and DM PAST SURGICAL HISTORY: Social History: Smoking: denies Alcohol: denies Drugs: denies Family History: Allergies No Known Allergies Allergy (Verified 06/16/18 15:46) HOME MEDICATIONS: Home Medications Medication Instructions Recorded Aspirin [ASA -] 81 mg PO DAILY 01/02/17 Carvedilol [Coreg] 6.25 mg PO BID 01/02/17 Cholecalciferol (Vitamin D3) 5,000 unit PO WEEKLY 01/02/17 [Vitamin D -] Digoxin [Lanoxin -] 0.125 mg PO DAILY 01/02/17 Febuxostat [Uloric] 40 mg PO DAILY 01/02/17 Furosemide [Lasix] 20 mg PO DAILY 01/02/17 Gabapentin 300 mg PO DAILY 01/02/17 Glimepiride [Amaryl] 2 mg PO DAILY 01/02/17 Lipitor 10 mg PO HS 01/02/17 Omeprazole 40 mg PO DAILY 01/02/17 Tradjenta 5 mg PO DAILY 01/02/17 Vasotec 5 mg PO DAILY 01/02/17 Zolpidem Tartrate [Ambien] 5 mg PO HS 01/02/17 predniSONE [Deltasone -] See Taper PO ASDIR #32 tab 01/05/17 Prednisone [Deltasone] 40 mg PO DAILY #3 tablet 03/25/18 REVIEW OF SYSTEMS denies any shortness of breath, discomfort, chest pain, nausea, swelling, fever , vomiting, diarrhea, headache, or dizziness PHYSICAL EXAMINATION Vital Signs Temperature 98.5 F 06/16/18 15:46 Pulse Rate 108 H 06/16/18 19:30 Respiratory Rate 18 06/16/18 15:46 Blood Pressure 94/69 06/16/18 15:46 O2 Sat by Pulse Oximetry (%) 97 06/16/18 19:30 GENERAL: Awake, alert, and fully oriented, in no acute distress. HEAD: Normal with no signs of trauma. EYES: Pupils equal, round and reactive to light, extraocular movements intact EARS, NOSE, THROAT: Moist mucous membranes. LUNGS: Breath sounds equal, clear to auscultation bilaterally. No wheezes, and no crackles. No accessory muscle use. HEART: tachycardic, no murmurs heard, defribilator in LUQ ABDOMEN: Soft, nontender, not distended, normoactive bowel sounds, no guarding, no rebound, no masses. LOWER EXTREMITIES: 2+ pulses, warm, well-perfused. No calf tenderness. No peripheral edema. PSYCHIATRIC: Cooperative. Good eye contact. Appropriate mood and affect. SKIN: Warm, dry, normal turgor, no rashes or lesions noted, normal capillary refill. CBCD WBC 5.1 K/mm3 (4.0-10.0) 06/16/18 16:31 RBC 4.22 M/mm3 (4.00-5.60) 06/16/18 16:31 Hgb 13.0 GM/dL (11.7-16.9) 06/16/18 16:31 Hct 40.6 % (35.4-49) D 06/16/18 16:31 MCV 96.1 fl (80-96) H 06/16/18 16:31 MCHC 32.1 g/dl (32.0-35.9) 06/16/18 16:31 RDW 15.3 % (11.9-15.9) 06/16/18 16:31 Plt Count 202 K/MM3 (134-434) 06/16/18 16:31 MPV 7.6 fl (7.5-11.1) 06/16/18 16:31 CMP Sodium 132 mmol/L (136-145) L 06/16/18 16:31 Potassium 5.0 mmol/L (3.5-5.1) 06/16/18 16:31 Chloride 100 mmol/L (98-107) 06/16/18 16:31 Carbon Dioxide 22 mmol/L (21-32) 06/16/18 16:31 Anion Gap 10 MMOL/L (8-16) 06/16/18 16:31 BUN 52 mg/dL (7-18) H 06/16/18 16:31 Creatinine 2.7 mg/dL (0.55-1.3) H 06/16/18 16:31 Calcium 9.0 mg/dL (8.5-10.1) 06/16/18 16:31 Total Bilirubin 1.4 mg/dL (0.2-1) H 06/16/18 16:31 AST 36 U/L (15-37) 06/16/18 16:31 ALT 66 U/L (13-61) H 06/16/18 16:31 Alkaline Phosphatase 82 U/L (45-117) 06/16/18 16:31 Total Protein 7.7 g/dl (6.4-8.2) 06/16/18 16:31 Albumin 4.1 g/dl (3.4-5.0) 06/16/18 16:31 ASSESSMENT/PLAN: Patient is a 77 y/o male with a history of HTN, HLD, CAD s/p stents, VT s/p defribilator, gout, and DM who presents for dyspnea and is being admitted to r/ o PE. #dyspnea - cannot exclude PE - resolved, no longer tacypnic - f/u Ddimer - monitor on room air, maintain O2 > 90% - V/Q scan in the morning if indicated - full dose lovenox given, do not recommend further lovenox with ELLIOTT - unlikely CHF exacerbation from clinical standpoint - afebrile, tachycardic - BL US: no DVT's #ELLIOTT on CKD - baseline Cr~2 - chief business development officer Dr Lakhani - continue LR @ 100 - possibly 2/2 to overdiuresis at [facility] and poor LV function - avoid nephrotoxic agents - f/u Kidney ultrasound - Nephro consult, Dr Connolly #elevated T bili - abdominal sonogram - likely secondary to congestion - continue to trend #VT hx, stent hx - f/u echo - last echo 2014: global hypokinesis LV dysfunction - troponin .03 - BMP: 98276, unlikely CHF exacerbation, mildly hypovolemic, bedside US no effusions per ED - low BP likely baseline given cardiac hx - EKG: old LBB unchanged prom previous, paced rhythm #elevated TSH - TSH incresed to 4.14 - f/u free T4 and T3 #DM - SS - BGM ACHS #DVT ppx - full dose lovenox 1 time - heaprin TID #FEN - low sodium/diabetic diet - LR @ 100 - monitor lytes Dispo: monitor on tele obs, V/Q scan tomorrow if indicated - [facility], med rec in the morning Visit type - Emergency Visit Emergency Visit: Yes ED Registration Date: 06/16/18 Care time: The patient presented to the Emergency Department on the above date and was hospitalized for further evaluation of their emergent condition. - New Patient This patient is new to me today: Yes Date on this admission: 06/17/18 - Critical Care Critical Care patient: No
[2018-06-17] MEDS ORDERED: diphenhydrAMINE HCL 25 MG CAPSULE (FP) PO ONE ×3 (00:41→01:18)
[2018-06-17] MEDS: LACTATED RINGERS SOLUTION 1,000 ML/1,000 ML INFUS.BAG IV SCH ×2 (00:41→16:46)
[2018-06-17] MEDS: HEPARIN NA (PORCINE) 5,000 UNITS/ML 1ML VIAL SQ SCH ×3 (05:40→21:10)
[2018-06-17] MEDS: INSULIN SLIDING SCALE (NOVOLOG) 1 VIAL SQ SCH ×4 (06:02→21:11)
[2018-06-17 06:08] LABS: BASO % 0.5 % (0-2.0); EOS % 3.2 % (0-4.5); HEMATOCRIT 34.7 % (35.4-49); HEMOGLOBIN 11.6 GM/dL (11.7-16.9); LYMPH % 42.9 % (8-40); MCH 31.6 pg (25.7-33.7); MCHC 33.4 g/dl (32.0-35.9); MEAN CELL VOLUME 94.4 fl (80-96); MEAN PLT VOLUME 7.4 fl (7.5-11.1); MONO % 8.4 % (3.8-10.2); PLATELET COUNT 178 K/MM3 (134-434); RBC 3.68 M/mm3 (4.00-5.60); RDW 15.3 % (11.9-15.9)
[2018-06-17 06:28] LABS: INR 1.64 (0.83-1.09); PROTHROMBIN TIME (PATIENT) 19.5 SEC (9.7-13.0)
[2018-06-17 06:41] LABS: ALBUMIN 3.3 g/dl (3.4-5.0); BILIRUBIN,TOTAL 1.6 mg/dL (0.2-1); CALCIUM 8.8 mg/dL (8.5-10.1); CREATININE 2.5 mg/dL (0.55-1.3); POTASSIUM 4.6 mmol/L (3.5-5.1); TOT PROT 6.1 g/dl (6.4-8.2)
[2018-06-17 08:37] LABS: URINE APPEARANCE CLEAR; URINE BILIRUBIN NEGATIVE (NEGATIVE); URINE COLOR YELLOW; URINE GLUCOSE (UA) NEGATIVE (NEGATIVE); URINE KETONE NEGATIVE (NEGATIVE); URINE LEUK ESTERASE NEGATIVE (NEGATIVE); URINE NITRITE NEGATIVE (NEGATIVE); URINE PROTEIN NEGATIVE (NEGATIVE)
--- NOTE | 2018-06-17 09:28 | PN ---
Teaching Attending Note Name of Resident: Elmo Wheeler ATTENDING PHYSICIAN STATEMENT I saw and evaluated the patient. I reviewed the resident's note and discussed the case with the resident. I agree with the resident's findings and plan as documented. SUBJECTIVE: Patient is a 77 yo male with PMHx of cardiomyopathy, s/p AICD placement, NIDDM, HTN, HLD, CAD s/p stents, AR s/p defibrillator and gout presents with dyspnea, tachypnea and tachycardia for the past several days. as per notes; patient was found hypotensive in the ER, and bedside ECHO revealed no evidence of pericardial effusion. Bilateral Doppler of the lower extremity shows no evidence of DVT. Patient is comfortable with no acute distress, no further shortness of breath noted. OBJECTIVE: Vital Signs Temperature 97.8 F 06/17/18 05:49 Pulse Rate 90 06/17/18 05:49 Respiratory Rate 20 06/17/18 05:49 Blood Pressure 108/64 06/17/18 05:49 O2 Sat by Pulse Oximetry (%) 95 06/17/18 03:16 GENERAL: Awake, alert, and fully oriented, in no acute distress. HEAD: Normal with no signs of trauma. EYES: Pupils equal, round and reactive to light, extraocular movements intact EARS, NOSE, THROAT: Moist mucous membranes. LUNGS: Breath sounds equal, clear to auscultation bilaterally. No wheezes, and no crackles. No accessory muscle use. HEART: RRR, no murmurs heard, defribilator in LUQ ABDOMEN: Soft, nontender, not distended, normoactive bowel sounds, no guarding, no rebound, no masses. EXTREMITIES: 2+ pulses, warm, well-perfused. No calf tenderness. No peripheral edema. PSYCHIATRIC: Cooperative. Good eye contact. Appropriate mood and affect. SKIN: Warm, dry, normal turgor, no rashes or lesions noted, normal capillary refill. CBCD WBC 5.0 K/mm3 (4.0-10.0) 06/17/18 05:30 RBC 3.68 M/mm3 (4.00-5.60) L 06/17/18 05:30 Hgb 11.6 GM/dL (11.7-16.9) L 06/17/18 05:30 Hct 34.7 % (35.4-49) L 06/17/18 05:30 MCV 94.4 fl (80-96) 06/17/18 05:30 MCHC 33.4 g/dl (32.0-35.9) 06/17/18 05:30 RDW 15.3 % (11.9-15.9) 06/17/18 05:30 Plt Count 178 K/MM3 (134-434) 06/17/18 05:30 MPV 7.4 fl (7.5-11.1) L 06/17/18 05:30 CMP Sodium 135 mmol/L (136-145) L 06/17/18 05:30 Potassium 4.6 mmol/L (3.5-5.1) 06/17/18 05:30 Chloride 103 mmol/L (98-107) 06/17/18 05:30 Carbon Dioxide 23 mmol/L (21-32) 06/17/18 05:30 Anion Gap 9 MMOL/L (8-16) 06/17/18 05:30 BUN 50 mg/dL (7-18) H 06/17/18 05:30 Creatinine 2.5 mg/dL (0.55-1.3) H 06/17/18 05:30 Random Glucose 124 mg/dL (74-106) H 06/17/18 05:30 Calcium 8.8 mg/dL (8.5-10.1) 06/17/18 05:30 Total Bilirubin 1.6 mg/dL (0.2-1) H 06/17/18 05:30 AST 24 U/L (15-37) 06/17/18 05:30 ALT 50 U/L (13-61) 06/17/18 05:30 Alkaline Phosphatase 64 U/L (45-117) 06/17/18 05:30 Total Protein 6.1 g/dl (6.4-8.2) L 06/17/18 05:30 Albumin 3.3 g/dl (3.4-5.0) L 06/17/18 05:30 CARDIAC ENZYMES Creatine Kinase 167 U/L (26-308) 06/16/18 16:31 Troponin I 0.04 ng/ml (0.00-0.05) 06/17/18 05:30 Home Medications Medication Instructions Recorded Aspirin [ASA -] 81 mg PO DAILY 01/02/17 Carvedilol [Coreg] 6.25 mg PO BID 01/02/17 Cholecalciferol (Vitamin D3) 5,000 unit PO WEEKLY 01/02/17 [Vitamin D -] Febuxostat [Uloric] 40 mg PO DAILY 01/02/17 Furosemide [Lasix] 20 mg PO DAILY 01/02/17 Gabapentin 300 mg PO DAILY 01/02/17 Glimepiride [Amaryl] 2 mg PO DAILY 01/02/17 Lipitor 10 mg PO HS 01/02/17 Omeprazole 40 mg PO DAILY 01/02/17 Zolpidem Tartrate [Ambien] 5 mg PO HS 01/02/17 Enalapril Maleate 5 mg PO DAILY 06/17/18 Current Medications Generic Name Dose Route Start Last Admin Trade Name Mariela PRN Reason Stop Dose Admin Aspirin 81 mg 06/18/18 10:00 Asa - PO DAILY [facility] Atorvastatin Calcium 10 mg 06/17/18 22:00 Lipitor - PO HS [facility] Carvedilol 3.125 mg 06/17/18 22:00 Coreg - PO BID [facility] Gabapentin 300 mg 06/18/18 10:00 Neurontin - PO DAILY [facility] Heparin Sodium (Porcine) 5,000 unit 06/17/18 06:00 06/17/18 13:35 Heparin - SQ 5,000 unit TID CLIVE Administration Lactated Ringer's 1,000 ml in 1,000 mls @ 100 mls/hr 06/16/18 23:45 06/17/18 00:41 Lactated Ringers Solution IV 100 mls/hr ASDIR CLIVE Administration Insulin Aspart 1 vial 06/17/18 07:00 06/17/18 11:35 Novolog Vial Sliding Scale - SQ Not Given ACHS [facility] Protocol Abdomen US: No evidence of AAA, IVC is patent. s/p cholecystectomy with no evidence of biliary ductal dilatation Mild diffuse Fatty infiltration of liver, BL renal cysts with no evidence of hydronephrosis or acute renal pathology. ECHO: left ventricle is severely dilated, LV systolic function is severely reduced. Severe global hypokinesis of left ventricle, pacemaker lead in the right ventricle,moderate MR. Trace TR, AR, NM. Duplex of LE: No DVT ASSESSMENT AND PLAN: Patient is a 77 y/o male with a history of HTN, HLD, CAD s/p stents, AR s/p defribilator, gout, and DM who presents for dyspnea and is being admitted to / o PE. #Acute dyspnea most likely due to elevated BNP of 38K/ diastolic CHF on Coreg , will check with nephro and cardio in terms of diuretic use. #ELLIOTT on CKD; Baselin is 1.8, presented 2.7---> 2.5, urine lytes , eosinophils. will discontinue Lovenox since elevated creatinine. #elevated T bili: most likely due to liver congestion/fathhy infiltration. #Hx of AR s/p stent. #elevated TSH, and FT4, will wait for FT3 possible that his weight loss is due to elevated FT4, cesar get endocrine involved. #DM ss with coverage # Hx of gout. DVT ppx: heaprin TID Laboratory Tests 06/16/18 06/16/18 06/16/18 16:31 18:00 19:42 Creatinine 2.7 H Total Bilirubin 1.4 H Troponin I 0.03 B-Natriuretic Peptide 41050.4 H TSH 4.14 H Free T4 1.27 H Total T3 Pending 06/17/18 05:30 Creatinine 2.5 H Total Bilirubin 1.6 H Troponin I 0.04 B-Natriuretic Peptide TSH Free T4 Total T3
--- NOTE | 2018-06-17 12:59 | CON.CARD ---
Consult Consult Specialty:: cardiology Reason for Consultation:: SOB; hx ICD, ?recently elevated TNI - History of Present Illness Chief Complaint: Pt Alert; (daughter--Mignon--at bedside); denies chest pain, dyspnea. History of Present Illness: The patient is a 77YO black M with a PMH of LA (?x 2), severe systolic LV dsyfunction with ICD placed ?2 yrs ago, HTN, HLD, CAD s/p stents, renal dysfunction, COPD (quit cigarettes 10 yrs ago) unintentional weight loss, per family, and gout who presents to the ER with shortness of breath. He was recently discharged from [facility] after being admitted for ?"small LA and levated troponin." (per pt, he was there for two nights). - History Source History Provided By: Patient, Family Member, Medical Record Limitations to Obtaining History: Other (past records are not completely known by pt or his daughters; await records) - Past Medical History Cardio/Vascular: Yes: CAD, CHF, HTN, Hyperlipdemia, LA ("several years ago"), Pulmonary Hypertension, Other (defibrillator,s/p cardiac stent at [facility]) Pulmonary: Yes: COPD ("emphysema", per pt's daughter (Yeimi)) Gastrointestinal: Yes: Diverticulosis, Other (colon adenoma removed 02/19/16) Hepatobiliary: Yes: Cholelithiasis (s/p lap choly) Renal/: Yes: Renal Failure (chronic) Psych: Yes: Anxiety Rheumatology: Yes: Gout Endocrine: Yes: Diabetes Mellitus - Past Surgical History Past Surgical History: Yes: AICD, Cholecystectomy, Colonoscopy - Alcohol/Substance Use Hx Alcohol Use: Yes History of Substance Use: reports: None - Smoking History Smoking history: Former smoker Have you smoked in the past 12 months: No Aproximately how many cigarettes per day: 10 If you are a former smoker, when did you quit?: 2008 - Social History Usual Living Arrangement: Alone ADL: Independent 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 History of Recent Travel: No Home Medications - Allergies Allergies/Adverse Reactions: Allergies Allergy/AdvReac Type Severity Reaction Status Date / Time No Known Allergies Allergy Verified 06/16/18 15:46 - Home Medications Home Medications: Ambulatory Orders Aspirin [ASA -] 81 mg PO DAILY 01/02/17 Cholecalciferol (Vitamin D3) [Vitamin D -] 5,000 unit PO WEEKLY 01/02/17 Febuxostat [Uloric] 40 mg PO DAILY 01/02/17 Furosemide [Lasix] 20 mg PO DAILY 01/02/17 Gabapentin 300 mg PO DAILY 01/02/17 Glimepiride [Amaryl] 2 mg PO DAILY 01/02/17 Lipitor 10 mg PO HS 01/02/17 Carvedilol [Coreg -] 3.125 mg PO BID 06/17/18 Enalapril Maleate 5 mg PO DAILY 06/17/18 Family Disease History - Family Disease History Family Disease History: Diabetes: Mother ( age 87), Heart Disease: Father ( lived in his 90s) Review of Systems - Review of Systems Constitutional: reports: Unintentional Wgt. Loss, Weakness Eyes: reports: No Symptoms HENT: reports: No Symptoms Neck: reports: No Symptoms Cardiovascular: reports: Shortness of Breath Respiratory: reports: SOB Gastrointestinal: reports: No Symptoms Genitourinary: reports: No Symptoms Breasts: reports: No Symptoms Reported Musculoskeletal: reports: Muscle Weakness Integumentary: reports: No Symptoms Neurological: reports: Weakness Endocrine: reports: No Symptoms Hematology/Lymphatic: reports: No Symptoms Psychiatric: reports: Anxiety - Risk Factors Known Risk Factors: Yes: Age, Diabetes Mellitus, Gender, Hypercholesterolemia, Hypertension, Physical Inactivity Vital Signs: Vital Signs Temperature 97.7 F 06/17/18 09:00 Pulse Rate 88 06/17/18 09:00 Respiratory Rate 20 06/17/18 09:00 Blood Pressure 100/56 L 06/17/18 09:00 O2 Sat by Pulse Oximetry (%) 97 06/17/18 09:00 Constitutional: Yes: Anxious Eyes: Yes: WNL HENT: Yes: WNL Neck: Yes: WNL Respiratory: Yes: SOB on Exertion Gastrointestinal: Yes: Soft. No: Tenderness Renal/: No: Anuria Cardiovascular: Yes: Regular Rate and Rhythm JVD: No Carotid Bruit: No Heart Sounds: Yes: S1, Split S2 Murmur: Yes: Systolic Murmur, Grade 2 Musculoskeletal: Yes: Muscle Weakness Extremities: Yes: Cool Edema: Yes Edema: LLE: Trace, RLE: Trace Peripheral Pulses WNL: Yes Integumentary: Yes: WNL Neurological: Yes: Alert, Weakness Psychiatric: Yes: Alert, Oriented - Other Data Labs, Other Data: CBC, BMP 06/17/18 05:30 06/17/18 05:30 INR, PTT INR 1.64 (0.83-1.09) H 06/17/18 05:30 Troponin, BNP 06/16/18 06/17/18 16:31 05:30 Troponin I 0.03 0.04 B-Natriuretic Peptide 02947.4 H Troponin, BNP 06/16/18 06/17/18 16:31 05:30 Troponin I 0.03 0.04 B-Natriuretic Peptide 03159.4 H Imaging - Results Chest X-ray: Image Reviewed EKG: Image Reviewed Problem List - Problems (1) Renal dysfunction Assessment/Plan: f/u with multifocal button generator. Code(s): N28.9 - DISORDER OF KIDNEY AND URETER, UNSPECIFIED (2) ICD (implantable cardioverter-defibrillator) in place Code(s): Z95.810 - PRESENCE OF AUTOMATIC (IMPLANTABLE) CARDIAC DEFIBRILLATOR (3) Systolic CHF Assessment/Plan: Pt's daughter to bring his medication list today. He sees manager military ( ?Ling: [place]), and recently had ICD interrogation he says was unremarkable. Markedly elevated BNP, but does not appear in volume overload (no JVD; lungs with good air entry; clear CXR). F/u BUN/Cr (elevated; hx renal dysfunction), Is and Os, daily wt, electrolytes. Code(s): I50.20 - UNSPECIFIED SYSTOLIC (CONGESTIVE) HEART FAILURE (4) Myocardial infarct Assessment/Plan: F?u records. "Old LA years ago, followed a few years later by ICD. ?"Small LA and elevated TNI" a few days ago at [facility], though he was there only two days. TNI now 0.03-->0.04 EKG: atrial sensed, V pacing/LBBB Code(s): I21.9 - ACUTE MYOCARDIAL INFARCTION, UNSPECIFIED (5) Weight loss, unintentional Code(s): R63.4 - ABNORMAL WEIGHT LOSS (6) COPD (chronic obstructive pulmonary disease) Assessment/Plan: Hx "emphysema", per daughter. Pt quit smoking at least 10 yrs ago. Code(s): J44.9 - CHRONIC OBSTRUCTIVE PULMONARY DISEASE, UNSPECIFIED
--- NOTE | 2018-06-17 13:40 | CONSULT ---
Consult - text type - Consultation Consultation Note: Renal consult for ELLIOTT on CKD This is a 77 year old gentleman with hx of CKD stage 4 ( baseline Cr 1.88, eGFR 30), LV dysfunction/CHF, hypertension, HLD, CAD s/p FL, AICD, Gout who presented with SOB and generalized weakness. Pt was recently admitted to [facility] but cannot recall what was done for him. Denies any CP, sob, cough, fever, chills, N/V/D. Making urine, denies any flank pain, dysuria, hematuria. Randolph any NSAID use. No fever or chills. PMhx: as above Allergies: NDKA Family Hx: NC Social hX: No T/A/D ROS: as per HPI, all other pertinent ros negative Vital Signs Temperature 97.7 F 06/17/18 09:00 Pulse Rate 88 06/17/18 09:00 Respiratory Rate 20 06/17/18 09:00 Blood Pressure 100/56 L 06/17/18 09:00 O2 Sat by Pulse Oximetry (%) 97 06/17/18 09:00 Intake & Output 06/14/18 06/15/18 06/16/18 06/17/18 23:59 23:59 23:59 23:59 Intake Total 420 Output Total 220 Balance 200 Weight 81.647 kg 82.463 kg NAD awake and alert neck supple, no JVD RRR, no M/R CTA soft NT/ND no LE edema, clubbing or cyanosis CBC, BMP 06/17/18 05:30 06/17/18 05:30 Current Medications Heparin Sodium (Porcine) (Heparin -) 5,000 unit SQ TID CLIVE Last Admin: 06/17/18 13:35 Dose: 5,000 unit Lactated Ringer's (Lactated Ringers Solution) 1,000 ml in 1,000 mls @ 100 mls/ hr IV ASDIR CLIVE Last Admin: 06/17/18 00:41 Dose: 100 mls/hr Insulin Aspart (Novolog Vial Sliding Scale -) 1 vial SQ ACHS [facility]; Protocol Last Admin: 06/17/18 11:35 Dose: Not Given 77 year old gentleman with hx of CKD stage 4 (baseline Cr 1.88 , eGFR 30), LV dysfunction/CHF, hypertension, HLD, CAD s/p FL, AICD, Gout who presented with SOB and generalized weakness. #ELLIOTT on CKD likely due to mild volume depletoin vs. ATN vs. AIN #CHF #Generalized weakness #Anemia Last Cr in the office was 1.88 from 02/2018 Check urine studies for FeNa, UPCR and Eosinophils Can continue gentle IVF hydration for the time being trend urine output pt appears euvolemic at the present time Check iron studies Thank you Will follow Mikhail Ling DO
--- NOTE | 2018-06-17 14:13 | PN ---
Physical Exam: SUBJECTIVE: Patient seen and examined OBJECTIVE: Vital Signs Period Temp Pulse Resp BP Sys/Robbins Pulse Ox Last 24 Hr 97.3 F-98.5 F 81-115 17-20 90-108/56-69 95-99 GENERAL: Awake, alert, and fully oriented, in no acute distress. HEAD: Normal with no signs of trauma. EYES: Pupils equal, round and reactive to light, extraocular movements intact EARS, NOSE, THROAT: Moist mucous membranes. LUNGS: CTAB HEART: RRR, no murmurs heard, defribilator in LUQ ABDOMEN: Soft, nontender, not distended, normoactive bowel sounds, no guarding, no rebound, no masses. LOWER EXTREMITIES: 2+ pulses, warm, well-perfused. No calf tenderness. No peripheral edema. PSYCHIATRIC: Cooperative. Good eye contact. Appropriate mood and affect. SKIN: Warm, dry, normal turgor, no rashes or lesions noted, normal capillary refill. Laboratory Results - last 24 hr 06/16/18 06/16/18 06/16/18 16:31 16:31 16:31 WBC 5.1 RBC 4.22 Hgb 13.0 Hct 40.6 D MCV 96.1 H MCH 30.9 MCHC 32.1 RDW 15.3 Plt Count 202 MPV 7.6 Absolute Neuts (auto) 2.6 Neutrophils % 51.0 D Lymphocytes % 38.0 D Monocytes % 7.7 Eosinophils % 2.7 D Basophils % 0.6 Nucleated RBC % 0 PT with INR 17.70 H INR 1.49 H D-Dimer Sodium 132 L Potassium 5.0 Chloride 100 Carbon Dioxide 22 Anion Gap 10 BUN 52 H Creatinine 2.7 H Est GFR (CKD-EPI)AfAm 25.39 Est GFR (CKD-EPI)NonAf 21.90 POC Glucometer Random Glucose 135 H Calcium 9.0 Magnesium 2.2 Total Bilirubin 1.4 H AST 36 ALT 66 H Alkaline Phosphatase 82 Creatine Kinase 167 Creatine Kinase Index 1.3 CK-MB (CK-2) 2.3 Troponin I 0.03 B-Natriuretic Peptide 48878.4 H Total Protein 7.7 Albumin 4.1 TSH Free T4 Urine Color Urine Appearance Urine pH Ur Specific [place] Urine Protein Urine Glucose (UA) Urine Ketones Urine Blood Urine Nitrite Urine Bilirubin Urine Urobilinogen Ur Leukocyte Esterase Digoxin 06/16/18 06/17/1819 18:00 02:30 05:22 WBC RBC Hgb Hct MCV MCH MCHC RDW Plt Count MPV Absolute Neuts (auto) Neutrophils % Lymphocytes % Monocytes % Eosinophils % Basophils % Nucleated RBC % PT with INR INR D-Dimer 1207 H Sodium Potassium Chloride Carbon Dioxide Anion Gap BUN Creatinine Est GFR (CKD-EPI)AfAm Est GFR (CKD-EPI)NonAf POC Glucometer 120 Random Glucose Calcium Magnesium Total Bilirubin AST ALT Alkaline Phosphatase Creatine Kinase Creatine Kinase Index CK-MB (CK-2) Troponin I B-Natriuretic Peptide Total Protein Albumin TSH 4.14 H Free T4 1.27 H Urine Color Urine Appearance Urine pH Ur Specific [place] Urine Protein Urine Glucose (UA) Urine Ketones Urine Blood Urine Nitrite Urine Bilirubin Urine Urobilinogen Ur Leukocyte Esterase Digoxin 0.40 L 06/17/18 06/17/18 06/17/18 05:30 05:30 05:30 WBC 5.0 RBC 3.68 L Hgb 11.6 L Hct 34.7 L MCV 94.4 MCH 31.6 MCHC 33.4 RDW 15.3 Plt Count 178 MPV 7.4 L Absolute Neuts (auto) 2.3 Neutrophils % 45.0 Lymphocytes % 42.9 H Monocytes % 8.4 Eosinophils % 3.2 Basophils % 0.5 Nucleated RBC % 0 PT with INR 19.50 H INR 1.64 H D-Dimer Sodium 135 L Potassium 4.6 Chloride 103 Carbon Dioxide 23 Anion Gap 9 BUN 50 H Creatinine 2.5 H Est GFR (CKD-EPI)AfAm 27.86 Est GFR (CKD-EPI)NonAf 24.04 POC Glucometer Random Glucose 124 H Calcium 8.8 Magnesium Total Bilirubin 1.6 H AST 24 ALT 50 Alkaline Phosphatase 64 Creatine Kinase Creatine Kinase Index CK-MB (CK-2) Troponin I 0.04 B-Natriuretic Peptide Total Protein 6.1 L Albumin 3.3 L TSH Free T4 Urine Color Urine Appearance Urine pH Ur Specific [place] Urine Protein Urine Glucose (UA) Urine Ketones Urine Blood Urine Nitrite Urine Bilirubin Urine Urobilinogen Ur Leukocyte Esterase Digoxin 06/17/18 06/17/18 08:00 11:33 WBC RBC Hgb Hct MCV MCH MCHC RDW Plt Count MPV Absolute Neuts (auto) Neutrophils % Lymphocytes % Monocytes % Eosinophils % Basophils % Nucleated RBC % PT with INR INR D-Dimer Sodium Potassium Chloride Carbon Dioxide Anion Gap BUN Creatinine Est GFR (CKD-EPI)AfAm Est GFR (CKD-EPI)NonAf POC Glucometer 131 Random Glucose Calcium Magnesium Total Bilirubin AST ALT Alkaline Phosphatase Creatine Kinase Creatine Kinase Index CK-MB (CK-2) Troponin I B-Natriuretic Peptide Total Protein Albumin TSH Free T4 Urine Color Yellow Urine Appearance Clear Urine pH 5.0 Ur Specific [place] 1.016 Urine Protein Negative Urine Glucose (UA) Negative Urine Ketones Negative Urine Blood Negative Urine Nitrite Negative Urine Bilirubin Negative Urine Urobilinogen 1.0 Ur Leukocyte Esterase Negative Digoxin Active Medications Generic Name Dose Route Start Last Admin Trade Name Freq PRN Reason Stop Dose Admin Heparin Sodium (Porcine) 5,000 unit 06/17/18 06:00 06/17/18 13:35 Heparin - SQ 5,000 unit TID CLIVE Administration Lactated Ringer's 1,000 ml in 1,000 mls @ 100 mls/hr 06/16/18 23:45 06/17/18 00:41 Lactated Ringers Solution IV 100 mls/hr ASDIR CLIVE Administration Insulin Aspart 1 vial 06/17/18 07:00 06/17/18 11:35 Novolog Vial Sliding Scale - SQ Not Given ACHS [facility] Protocol [id number] US/ABDOMEN US [id number] US/KIDNEY / RENAL US HISTORY PROVIDED: Elevated bilirubin, creatinine. Real time examination of the abdomen demonstrates the following: The gallbladder has been removed. There is no evidence of intra or extrahepatic biliary duct dilatation. The liver is normal in size. It is slightly hyperechoic in texture suspicious for diffuse fatty infiltration. No discrete intrahepatic masses are identified. Hepatopedal flow is documented within the main portal vein. The pancreas is poorly visualized due to overlying bowel gas. The spleen is not enlarged. The kidneys are normal in size with the right kidney measuring 9.2 x 5.2 x 4.6 cm and the left kidney measuring 9.5 x 3.9 x 4.8 cm. They are normal in position and texture with no evidence of hydronephrosis or contour deforming renal masses. Small cysts are identified bilaterally. The right renal cyst measures 2.0 x 1.4 x 2.2 cm. The largest left renal cyst measures 3.1 x 2.3 x 2.4 cm. Patency of both renal veins is identified. There is no evidence of AAA. The IVC is patent. IMPRESSION: 1. S/P cholecystectomy with no evidence of biliary ductal dilatation. 2. Probable mild diffuse fatty infiltration of liver. 3. Bilateral renal cysts with no evidence of hydronephrosis or acute renal pathology ASSESSMENT/PLAN: 77 y/o male with a history of HTN, HLD, LV dysfunction/CHF, CKD 4, CAD s/p stents, CO s/p defribilator, gout, and DM who presents for dyspnea and is being admitted to r/o PE. #dyspnea - resolved, no longer tacypnic - cannot exclude PE, Ddimer elevated - full dose lovenox given, do not recommend further lovenox with ELLIOTT - unlikely CHF exacerbation from clinical standpoint - afebrile, tachycardic - BL US: no DVT's #ELLIOTT on CKD likely due to mild volume depletoin vs. ATN vs. AIN - improving, 2.7..2.5 #CHF #Anemia -baseline Cr is 2.4 - continue LR @ 100 -Check urine studies for FeNa, UPCR and Eosinophils -monitor urine output -pt appears euvolemic at the present time -Check iron studies - avoid nephrotoxic agents - Kidney ultrasound reviewed - Nephro consult, Dr Connolly #elevated T bili - abdominal sonogram reviewed - likely secondary to congestion - continue to trend #CO hx, stent hx - f/u echo - last echo 2014: global hypokinesis LV dysfunction - troponin .03....04 - BMP: 38677, but does not appear in volume overload (no JVD; lungs with good air entry; clear CXR) - low BP likely baseline given cardiac hx - EKG: old LBB unchanged prom previous, paced rhythm -lipid panel #elevated TSH - TSH incresed to 4.14 - f/u free T4 and T3 #DM - SS - BGM ACHS #DVT ppx - full dose lovenox 1 time - heaprin TID #FEN - LR @ 100 - monitor lytes - low sodium/diabetic diet Dispo: monitor on tele Visit type - Emergency Visit Emergency Visit: Yes ED Registration Date: 06/16/18 Care time: The patient presented to the Emergency Department on the above date and was hospitalized for further evaluation of their emergent condition. - New Patient This patient is new to me today: Yes Date on this admission: 06/17/18 - Critical Care Critical Care patient: No
--- NOTE | 2018-06-17 15:37 | ECHO ---
Name: RINA FRASER, JR Exam:Adult Echocardiogram Study Date: 06/17/2018 08:44 AM Age: 77 yrs Reason For Study: CHF Height: 71 in Weight: 180 lb BSA: 2.0 m2 MMode/2D Measurements & Calculations IVSd: 0.83 cm Ao root diam: 3.4 cm LVIDd: 7.0 cm LA dimension: 3.9 cm LVIDs: 6.1 cm LVPWd: 1.1 cm EDV(Teich): 252.4 ml MV Diam: 2.6 cm ESV(Teich): 189.6 ml LVOT diam: 2.3 cm Doppler Measurements & Calculations MV E max mayo: 80.9 cm/sec MV area (1 diam): 5.5 cm2 MV A max mayo: 76.0 cm/sec MV Flow area(1diam): 5.5 cm2 MV E/A: 1.1 MV dec time: 0.12 sec Ao V2 max: 83.8 cm/sec LV V1 max P.9 mmHg Ao max P.8 mmHg LV V1 mean P.96 mmHg Ao V2 mean: 55.7 cm/sec LV V1 max: 68.1 cm/sec Ao mean P.5 mmHg LV V1 mean: 45.1 cm/sec Ao V2 VTI: 17.3 cm LV V1 VTI: 10.2 cm KALE(I,D): 2.4 cm2 KALE(V,D): 3.3 cm2 MR max mayo: 399.1 cm/sec SV(LVOT): 40.8 ml MR max P.7 mmHg TR max mayo: 323.1 cm/sec Lat Peak E' Mayo: 3.7 cm/sec TR max P.7 mmHg Lat E/e': 21.7 Procedure A complete two-dimensional transthoracic echocardiogram was performed (2D, M-mode, Doppler and color flow Doppler). Left Ventricle The left ventricle is severely dilated. Left ventricular systolic function is severely reduced. Eject ion Fraction = 15-20%. There is severe global hypokinesis of the left ventricle. Right Ventricle The right ventricle is normal in size and function. There is a pacemaker lead in the right ventricle. Atria Normal left and right atrial size and function. There is a catheter/pacemaker lead seen in the right atrium. The interatrial septum is intact with no evidence for an atrial septal defect. Mitral Valve There is moderate mitral regurgitation. Appears to be remnant of torn chordae seen on anterior wall o f LV. Tricuspid Valve There is mild tricuspid regurgitation. There is mild pulmonary hypertension. Aortic Valve No hemodynamically significant valvular aortic stenosis. Mild aortic regurgitation. Pulmonic Valve Trace pulmonic valvular regurgitation. Great Vessels The aortic root is normal size. Pericardium/Pleura There is no pericardial effusion. Interpretation Summary The left ventricle is severely dilated. Left ventricular systolic function is severely reduced. There is severe global hypokinesis of the left ventricle. The right ventricle is normal in size and function. There is a pacemaker lead in the right ventricle. There is a catheter/pacemaker lead seen in the right atrium. There is moderate mitral regurgitation. Appears to be remnant of torn chordae seen on anterior wall of LV. There is mild tricuspid regurgitation. There is mild pulmonary hypertension. Mild aortic regurgitation. Trace pulmonic valvular regurgitation. MD Lv Lange 06/17/2018 03:36 PM
[2018-06-17 16:35] VITALS: BMI 25.2
--- NOTE | 2018-06-17 17:16 | EKG ---
Test Reason : Blood Pressure : / mmHG Vent. Rate : 112 BPM Atrial Rate : 112 BPM P-R Int : 216 ms QRS Dur : 166 ms QT Int : 362 ms P-R-T Axes : 035 -45 068 degrees QTc Int : 494 ms Atrial-sensed ventricular-paced rhythm with prolonged AV conduction Biventricular pacemaker detected ABNORMAL ECG WHEN COMPARED WITH ECG OF 16-JUN-2018 16:33, VENT. RATE HAS DECREASED BY 2 BPM Confirmed by INES GUILLEN, GODWIN ([id number]) on 06/17/2018 5:16:36 PM Referred By: Confirmed By:GODWIN CHACON MD
--- NOTE | 2018-06-17 17:17 | EKG ---
Test Reason : Blood Pressure : / mmHG Vent. Rate : 114 BPM Atrial Rate : 114 BPM P-R Int : 232 ms QRS Dur : 168 ms QT Int : 360 ms P-R-T Axes : 063 -47 069 degrees QTc Int : 496 ms Atrial-sensed ventricular-paced rhythm with prolonged AV conduction Biventricular pacemaker detected ABNORMAL ECG WHEN COMPARED WITH ECG OF 02-JAN-2017 09:34, VENT. RATE HAS INCREASED BY 35 BPM Confirmed by INES GUILLEN, GODWIN ([id number]) on 06/17/2018 5:17:30 PM Referred By: Confirmed By:GODWIN CHACON MD
--- NOTE | 2018-06-17 18:45 | CONSULT ---
Consult Consult Specialty:: Endocrinology Referred by:: Dr Pearce Reason for Consultation:: Abnormal TFT - History of Present Illness Chief Complaint: SOB History of Present Illness: This is a 77 y/o male with a history of HTN, HLD, CAD s/p stents, NE s/p defribilator, gout, and DM who was presented with c/o SOB. Patient was recently admitted to [facility] and treated and discharged. He started to feel short of breath and "off" and came for evaluation. 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 He currently denies any shortness of breath, discomfort, chest pain, nausea, swelling, or increased discomfort. Pt referred for evaluation of abnormal TFT with TSH of 4.14 FT4 of 1.27 which is reported as high by the lab. Pt is a poor historian and is unable to give complete history. Pt denies any palpitations. Feels tired. No tremors. - History Source History Provided By: Patient, Family Member, Medical Record Limitations to Obtaining History: Poor Historian - Past Medical History Cardio/Vascular: Yes: CAD, CHF, HTN, Hyperlipdemia, NE ("several years ago"), Pulmonary Hypertension, Other (defibrillator,s/p cardiac stent at [facility]) Pulmonary: Yes: COPD ("emphysema", per pt's daughter (Yeimi)) Gastrointestinal: Yes: Diverticulosis, Other (colon adenoma removed 02/19/16) Hepatobiliary: Yes: Cholelithiasis (s/p lap choly) Renal/: Yes: Renal Failure (chronic) Rheumatology: Yes: Gout Endocrine: Yes: Diabetes Mellitus - Past Surgical History Past Surgical History: Yes: AICD, Cholecystectomy, Colonoscopy - Alcohol/Substance Use Hx Alcohol Use: Yes History of Substance Use: reports: None - Smoking History Smoking history: Former smoker Have you smoked in the past 12 months: No Aproximately how many cigarettes per day: 10 If you are a former smoker, when did you quit?: 2008 - Social History Usual Living Arrangement: Alone ADL: Independent 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 History of Recent Travel: No Home Medications - Allergies Allergies/Adverse Reactions: Allergies Allergy/AdvReac Type Severity Reaction Status Date / Time No Known Allergies Allergy Verified 05/08/19 15:46 - Home Medications Home Medications: Ambulatory Orders Aspirin [ASA -] 81 mg PO DAILY 01/02/17 Cholecalciferol (Vitamin D3) [Vitamin D -] 5,000 unit PO WEEKLY 01/02/17 Febuxostat [Uloric] 40 mg PO DAILY 01/02/17 Furosemide [Lasix] 20 mg PO DAILY 01/02/17 Gabapentin 300 mg PO DAILY 01/02/17 Glimepiride [Amaryl] 2 mg PO DAILY 01/02/17 Lipitor 10 mg PO HS 01/02/17 Carvedilol [Coreg -] 3.125 mg PO BID 06/17/18 Enalapril Maleate 5 mg PO DAILY 06/17/18 Family Disease History - Family Disease History Family Disease History: Diabetes: Mother ( age 87), Heart Disease: Father ( lived in his 90s) Review of Systems - Review of Systems Constitutional: reports: Malaise Eyes: reports: No Symptoms HENT: reports: No Symptoms Neck: reports: No Symptoms Cardiovascular: reports: No Symptoms Respiratory: reports: No Symptoms Gastrointestinal: reports: No Symptoms Genitourinary: reports: No Symptoms Musculoskeletal: reports: No Symptoms Neurological: reports: No Symptoms Endocrine: reports: No Symptoms Physical Exam Vital Signs: Vital Signs Temperature 97.7 F 06/17/18 17:32 Pulse Rate 91 H 06/17/18 17:32 Respiratory Rate 20 06/17/18 17:32 Blood Pressure 121/66 06/17/18 17:32 O2 Sat by Pulse Oximetry (%) 98 06/17/18 17:00 Constitutional: Yes: No Distress, Calm Eyes: Yes: Conjunctiva Clear HENT: Yes: Atraumatic, Normocephalic Neck: Yes: Supple, Trachea Midline, Other (No thyromegaly, No bruit) Cardiovascular: Yes: Regular Rate and Rhythm Respiratory: Yes: Regular, CTA Bilaterally Gastrointestinal: Yes: Normal Bowel Sounds, Soft Extremities: Yes: WNL Edema: No Neurological: Yes: Alert, Oriented Labs: CBC, BMP 06/17/18 05:30 06/17/18 05:30 Assessment/Plan AP: Abnormal TFT: TSH 4.14 and FT41.27 FT3 pending Borderline high TSH probably Part of sick euthyroid. The FT4 of 1.27 reported as high is probably secondary to calibration issue with the assay Will rpt TFT with TPO, TSI and follow up. ELLIOTT CAD T2DM [place] BGM Novolog coverage premeals as necessary Will F/u
[2018-06-17] MEDS ORDERED: ATORVASTATIN CA 10 MG TABLET (FP) PO SCH (22:00)
[2018-06-17] MEDS: CARVEDILOL 3.125 MG TABLET (FP) PO SCH (23:10)
[2018-06-18] MEDS: LACTATED RINGERS SOLUTION 1,000 ML/1,000 ML INFUS.BAG IV SCH (02:30)
[2018-06-18] MEDS: INSULIN SLIDING SCALE (NOVOLOG) 1 VIAL SQ SCH ×2 (06:45→13:20)
[2018-06-18] MEDS: HEPARIN NA (PORCINE) 5,000 UNITS/ML 1ML VIAL SQ SCH ×2 (06:46→15:54)
[2018-06-18 07:32] LABS: BASO % 0.4 % (0-2.0); EOS % 4.5 % (0-4.5); HEMATOCRIT 36.7 % (35.4-49); HEMOGLOBIN 11.9 GM/dL (11.7-16.9); LYMPH % 49.5 % (8-40); MCH 30.7 pg (25.7-33.7); MCHC 32.6 g/dl (32.0-35.9); MEAN CELL VOLUME 94.2 fl (80-96); MEAN PLT VOLUME 7.7 fl (7.5-11.1); MONO % 7.7 % (3.8-10.2); NEUT % 37.9 % (42.8-82.8); PLATELET COUNT 197 K/MM3 (134-434); RBC 3.89 M/mm3 (4.00-5.60); RDW 15.1 % (11.9-15.9)
[2018-06-18 07:40] LABS: ALBUMIN 3.2 g/dl (3.4-5.0); BILIRUBIN,TOTAL 1.6 mg/dL (0.2-1); CALCIUM 8.9 mg/dL (8.5-10.1); CREATININE 1.9 mg/dL (0.55-1.3); MAGNESIUM 2.2 mg/dL (1.8-2.4); PHOSPHOROUS 3.7 mg/dL (2.5-4.9); POTASSIUM 4.5 mmol/L (3.5-5.1); TOT PROT 6.1 g/dl (6.4-8.2)
[2018-06-18 07:49] LABS: BILIRUBIN,DIRECT 0.8 mg/dL (0.0-0.2)
[2018-06-18] MEDS: CARVEDILOL 3.125 MG TABLET (FP) PO SCH (09:36)
[2018-06-18] MEDS ORDERED: GABAPENTIN 300 MG CAPSULE (FP) PO SCH (10:00)
[2018-06-18] MEDS ORDERED: ASPIRIN 81 MG CHEWABLE TABLETS PO SCH (10:00)
--- NOTE | 2018-06-18 13:49 | DS ---
Physical Exam: SUBJECTIVE: Patient seen and examined at bedside. no complaints. denies cp, sob , fever, n/v/d OBJECTIVE: Vital Signs Period Temp Pulse Resp BP Sys/Robbins Pulse Ox Last 24 Hr 97.7 F-98.4 F 78-92 18-20 97-121/66-80 96-98 PHYSICAL EXAM GENERAL: Awake, alert, and fully oriented, in no acute distress. HEAD: Normal with no signs of trauma. EYES: Pupils equal, round and reactive to light, extraocular movements intact EARS, NOSE, THROAT: Moist mucous membranes. LUNGS: CTAB HEART: RRR, no murmurs heard, defribilator in LUQ ABDOMEN: Soft, nontender, not distended, normoactive bowel sounds, no guarding, no rebound, no masses. LOWER EXTREMITIES: 2+ pulses, warm, well-perfused. No calf tenderness. No peripheral edema. PSYCHIATRIC: Cooperative. Good eye contact. Appropriate mood and affect. SKIN: Warm, dry, normal turgor, no rashes or lesions noted, normal capillary refill. LABS Laboratory Results - last 24 hr 06/16/18 06/17/18 06/17/18 19:42 05:30 16:27 WBC RBC Hgb Hct MCV MCH MCHC RDW Plt Count MPV Absolute Neuts (auto) Neutrophils % Lymphocytes % Monocytes % Eosinophils % Basophils % Nucleated RBC % Sodium 135 L Potassium 4.6 Chloride 103 Carbon Dioxide 23 Anion Gap 9 BUN 50 H Creatinine 2.5 H Est GFR (CKD-EPI)AfAm 27.86 Est GFR (CKD-EPI)NonAf 24.04 POC Glucometer 128 Random Glucose 124 H Calcium 8.8 Phosphorus Magnesium Total Bilirubin 1.6 H Direct Bilirubin AST 24 ALT 50 Alkaline Phosphatase 64 Troponin I 0.04 Total Protein 6.1 L Albumin 3.3 L Triglycerides 66 Cholesterol 77 Total LDL Cholesterol 57 HDL Cholesterol 22 L TSH Free T4 Total T3 61.00 L Ur Random Creatinine U Random Total Protein Ur Random Sodium Ur Random Urea Nitrogn 06/17/18 06/17/18 06/17/18 17:05 17:05 21:07 WBC RBC Hgb Hct MCV MCH MCHC RDW Plt Count MPV Absolute Neuts (auto) Neutrophils % Lymphocytes % Monocytes % Eosinophils % Basophils % Nucleated RBC % Sodium Potassium Chloride Carbon Dioxide Anion Gap BUN Creatinine Est GFR (CKD-EPI)AfAm Est GFR (CKD-EPI)NonAf POC Glucometer 136 Random Glucose Calcium Phosphorus Magnesium Total Bilirubin Direct Bilirubin AST ALT Alkaline Phosphatase Troponin I Total Protein Albumin Triglycerides Cholesterol Total LDL Cholesterol HDL Cholesterol TSH Free T4 Total T3 Ur Random Creatinine 122.0 U Random Total Protein 17.5 H Ur Random Sodium 28 L Ur Random Urea Nitrogn 948 06/18/18 06/18/18 06/18/18 06:00 06:00 06:00 WBC 5.0 RBC 3.89 L Hgb 11.9 Hct 36.7 MCV 94.2 MCH 30.7 MCHC 32.6 RDW 15.1 Plt Count 197 MPV 7.7 Absolute Neuts (auto) 1.9 Neutrophils % 37.9 L Lymphocytes % 49.5 H Monocytes % 7.7 Eosinophils % 4.5 Basophils % 0.4 Nucleated RBC % 0 Sodium 134 L Potassium 4.5 Chloride 104 Carbon Dioxide 20 L Anion Gap 10 BUN 41 H Creatinine 1.9 H Est GFR (CKD-EPI)AfAm 38.83 Est GFR (CKD-EPI)NonAf 33.50 POC Glucometer Random Glucose 91 Calcium 8.9 Phosphorus 3.7 Magnesium 2.2 Total Bilirubin 1.6 H Direct Bilirubin 0.8 H AST 24 ALT 42 Alkaline Phosphatase 65 Troponin I Total Protein 6.1 L Albumin 3.2 L Triglycerides Cholesterol Total LDL Cholesterol HDL Cholesterol TSH 3.42 D Free T4 Total T3 Ur Random Creatinine U Random Total Protein Ur Random Sodium Ur Random Urea Nitrogn 06/18/18 06/18/18 06/18/18 06:00 06:41 11:30 WBC RBC Hgb Hct MCV MCH MCHC RDW Plt Count MPV Absolute Neuts (auto) Neutrophils % Lymphocytes % Monocytes % Eosinophils % Basophils % Nucleated RBC % Sodium Potassium Chloride Carbon Dioxide Anion Gap BUN Creatinine Est GFR (CKD-EPI)AfAm Est GFR (CKD-EPI)NonAf POC Glucometer 79 158 Random Glucose Calcium Phosphorus Magnesium Total Bilirubin Direct Bilirubin AST ALT Alkaline Phosphatase Troponin I Total Protein Albumin Triglycerides Cholesterol Total LDL Cholesterol HDL Cholesterol TSH Free T4 1.38 H Total T3 Ur Random Creatinine U Random Total Protein Ur Random Sodium Ur Random Urea Nitrogn [id number] US/ABDOMEN US [id number] US/KIDNEY / RENAL US HISTORY PROVIDED: Elevated bilirubin, creatinine. Real time examination of the abdomen demonstrates the following: The gallbladder has been removed. There is no evidence of intra or extrahepatic biliary duct dilatation. The liver is normal in size. It is slightly hyperechoic in texture suspicious for diffuse fatty infiltration. No discrete intrahepatic masses are identified. Hepatopedal flow is documented within the main portal vein. The pancreas is poorly visualized due to overlying bowel gas. The spleen is not enlarged. The kidneys are normal in size with the right kidney measuring 9.2 x 5.2 x 4.6 cm and the left kidney measuring 9.5 x 3.9 x 4.8 cm. They are normal in position and texture with no evidence of hydronephrosis or contour deforming renal masses. Small cysts are identified bilaterally. The right renal cyst measures 2.0 x 1.4 x 2.2 cm. The largest left renal cyst measures 3.1 x 2.3 x 2.4 cm. Patency of both renal veins is identified. There is no evidence of AAA. The IVC is patent. IMPRESSION: 1. S/P cholecystectomy with no evidence of biliary ductal dilatation. 2. Probable mild diffuse fatty infiltration of liver. 3. Bilateral renal cysts with no evidence of hydronephrosis or acute renal pathology ECHO Interpretation Summary The left ventricle is severely dilated. Left ventricular systolic function is severely reduced. There is severe global hypokinesis of the left ventricle. The right ventricle is normal in size and function. There is a pacemaker lead in the right ventricle. There is a catheter/pacemaker lead seen in the right atrium. There is moderate mitral regurgitation. Appears to be remnant of torn chordae seen on anterior wall of LV. There is mild tricuspid regurgitation. There is mild pulmonary hypertension. Mild aortic regurgitation. Trace pulmonic valvular regurgitation. HOSPITAL COURSE: Date of Admission:06/16/18 Date of Discharge: 06/18/18 77 y/o male with a history of HTN, HLD, LV dysfunction/CHF, CKD 4, CAD s/p stents, MO s/p defribilator, gout, and DM who presents for dyspnea and is being admitted to r/o PE. #dyspnea - resolved, no longer tacypnic, afebrile - unlikely PE despite elevated D-dimer. cannot get CTA in setting of elevated Cr. - full dose lovenox was given x1 dose, do not recommend further lovenox with ELLIOTT - BL US: no DVT's -dyspnea more likely 2/2 resolving of recent CHF exacerbation that was tx at [facility] and dehydration #ELLIOTT on CKD likely due to mild volume depletion (prerenal Fena) vs. ATN vs. AIN (intrinsic Furea) - improving w/ IVF, 2.7..2.5...1.9 #CHF #Anemia -baseline Cr is 2.4 - urine studies: prerenal Fena and intrinsic Furea -pt appears euvolemic at the present time -f/u iron studies - Kidney ultrasound reviewed - Nephro consult, Dr Connolly/Sushil #elevated T bili - abdominal sonogram reviewed - likely secondary to congestion #MO hx, stent hx - echo reviewed above. noted w/ remnant of torn chordae seen on anterior wall of LV, not seen on last echo 2014. pt will f/w outpt cardio for close monitoring - last echo 2014: global hypokinesis LV dysfunction - troponin .03....04 - BMP: 19923, but does not appear in volume overload (no JVD; lungs with good air entry; clear CXR) - low BP likely baseline given cardiac hx - EKG: old LBB unchanged prom previous, paced rhythm #elevated TSH Borderline high TSH (4.14) probably 2/2 sick euthyroid. rpt TSH 3.42 nl FT41.27 FT3 61 The FT4 of 1.27 reported as high is probably 2/2 calibration issue with the assay, endo recs appreciated TPO, TSI pending. pt told to f/u w/w Dr Purdy outpt to review results #Dementia? - per daughter, pt more forgetful. will refer to neuro Dr. Munoz for outpt dementia eval pt stable and ready for dc w/ appropriate f/u Minutes to complete discharge: 37 Discharge Summary Reason For Visit: DYSPNEA,ACUTE ON CHRONIC RENAL INSUFFICIENCY Current Active Problems ELLIOTT (acute kidney injury) (Acute) COPD (chronic obstructive pulmonary disease) (Acute) Dyspnea (Acute) ICD (implantable cardioverter-defibrillator) in place (Acute) Myocardial infarct (Acute) Renal dysfunction (Acute) Systolic CHF (Acute) Weight loss, unintentional (Acute) Condition: Stable - Instructions Diet, Activity, Other Instructions: you came in for shortness of breath due to your resolving recent mild exacerbation of your heart failure. we noticed your thyroid levels were a little high. Please follow up with laborer hide house Dr. Purdy within 1 week to review your labs and see if you need to add any medications for your thyroid. Please resume your home meds Please follow up with your primary care physician within 1 week to review your iron studies. you may need iron supplements as your hemaglobin was low Please follow up with laborer hide house Dr. Purdy within 1 week Please follow up with your dry cleaning checker or with dry cleaning checker Dr Ratliff within 1 week for close monitoring of your heart given your extensive cardiac history and recent CHF exacerbation Please follow up with labor relations officer Dr Ling within 1 week Please follow up with neurologist Dr Munoz within 1 week for an out patient dementia eval Referrals: Ronni Munoz DO [Staff Physician] - 1 Week Eliezer Ratliff MD [Staff Physician] - 1 Week Mikhail Ling MD [Staff Physician] - 1 Week Jessica Purdy MD [Staff Physician] - 1 Week Disposition: HOME - Home Medications Comprehensive Discharge Medication List: Ambulatory Orders Aspirin [ASA -] 81 mg PO DAILY 01/02/17 Cholecalciferol (Vitamin D3) [Vitamin D -] 5,000 unit PO WEEKLY 01/02/17 Febuxostat [Uloric] 40 mg PO DAILY 01/02/17 Furosemide [Lasix] 20 mg PO DAILY 01/02/17 Gabapentin 300 mg PO DAILY 01/02/17 Glimepiride [Amaryl] 2 mg PO DAILY 01/02/17 Lipitor 10 mg PO HS 01/02/17 Carvedilol [Coreg -] 3.125 mg PO BID 06/17/18 Enalapril Maleate 5 mg PO DAILY 06/17/18 This patient is new to me today: Yes Date on this admission: 06/18/18 Emergency Visit: Yes ED Registration Date: 06/16/18 Care time: The patient presented to the Emergency Department on the above date and was hospitalized for further evaluation of their emergent condition. Critical Care patient: No - Discharge Referral Referred to [facility] Med P.C.: No
--- NOTE | 2018-06-18 13:51 | PN ---
Teaching Attending Note Name of Resident: Elmo Wheeler ATTENDING PHYSICIAN STATEMENT I saw and evaluated the patient. I reviewed the resident's note and discussed the case with the resident. I agree with the resident's findings and plan as documented. SUBJECTIVE: Patient is comfortable with no acute distress. OBJECTIVE: Vital Signs Temperature 98.2 F 06/18/18 10:00 Pulse Rate 78 06/18/18 10:00 Respiratory Rate 20 06/18/18 10:00 Blood Pressure 102/78 06/18/18 10:00 O2 Sat by Pulse Oximetry (%) 96 06/18/18 10:00 GENERAL: Awake, alert, and fully oriented, in no acute distress. HEAD: Normal with no signs of trauma. EYES: Pupils equal, round and reactive to light, extraocular movements intact EARS, NOSE, THROAT: Moist mucous membranes. LUNGS: Breath sounds equal, clear to auscultation bilaterally. No wheezes, and no crackles. No accessory muscle use. HEART: RRR, no murmurs heard, defribilator in LUQ ABDOMEN: Soft, nontender, ND, normoactive bowel sounds, no guarding, no rebound , no masses. EXTREMITIES: 2+ pulses, warm, well-perfused. No calf tenderness. No peripheral edema. PSYCHIATRIC: Cooperative. Good eye contact. Appropriate mood and affect. SKIN: Warm, dry, normal turgor, no rashes or lesions noted, normal capillary refill. CBCD WBC 5.0 K/mm3 (4.0-10.0) 06/18/18 06:00 RBC 3.89 M/mm3 (4.00-5.60) L 06/18/18 06:00 Hgb 11.9 GM/dL (11.7-16.9) 06/18/18 06:00 Hct 36.7 % (35.4-49) 06/18/18 06:00 MCV 94.2 fl (80-96) 06/18/18 06:00 MCHC 32.6 g/dl (32.0-35.9) 06/18/18 06:00 RDW 15.1 % (11.9-15.9) 06/18/18 06:00 Plt Count 197 K/MM3 (134-434) 06/18/18 06:00 MPV 7.7 fl (7.5-11.1) 06/18/18 06:00 CMP Sodium 134 mmol/L (136-145) L 06/18/18 06:00 Potassium 4.5 mmol/L (3.5-5.1) 06/18/18 06:00 Chloride 104 mmol/L (98-107) 06/18/18 06:00 Carbon Dioxide 20 mmol/L (21-32) L 06/18/18 06:00 Anion Gap 10 MMOL/L (8-16) 06/18/18 06:00 BUN 41 mg/dL (7-18) H 06/18/18 06:00 Creatinine 1.9 mg/dL (0.55-1.3) H 06/18/18 06:00 Random Glucose 91 mg/dL (74-106) 06/18/18 06:00 Calcium 8.9 mg/dL (8.5-10.1) 06/18/18 06:00 Total Bilirubin 1.6 mg/dL (0.2-1) H 06/18/18 06:00 AST 24 U/L (15-37) 06/18/18 06:00 ALT 42 U/L (13-61) 06/18/18 06:00 Alkaline Phosphatase 65 U/L (45-117) 06/18/18 06:00 Total Protein 6.1 g/dl (6.4-8.2) L 06/18/18 06:00 Albumin 3.2 g/dl (3.4-5.0) L 06/18/18 06:00 CARDIAC ENZYMES Creatine Kinase 167 U/L (26-308) 06/16/18 16:31 Troponin I 0.04 ng/ml (0.00-0.05) 06/17/18 05:30 Current Medications Generic Name Dose Route Start Last Admin Trade Name Freq PRN Reason Stop Dose Admin Aspirin 81 mg 06/18/18 10:00 06/18/18 09:32 Asa - PO 81 mg DAILY CLIVE Administration Atorvastatin Calcium 10 mg 06/17/18 22:00 06/17/18 21:10 Lipitor - PO 10 mg HS CLIVE Administration Carvedilol 3.125 mg 06/17/18 22:00 06/18/18 09:36 Coreg - PO 3.125 mg BID CLIVE Administration Gabapentin 300 mg 06/18/18 10:00 06/18/18 09:32 Neurontin - PO 300 mg DAILY CLIVE Administration Heparin Sodium (Porcine) 5,000 unit 06/17/18 06:00 06/18/18 06:46 Heparin - SQ Not Given TID [facility] Lactated Ringer's 1,000 ml in 1,000 mls @ 100 mls/hr 06/16/18 23:45 06/18/18 02:30 Lactated Ringers Solution IV Not Given ASDIR [facility] Insulin Aspart 1 vial 06/17/18 07:00 06/18/18 13:20 Novolog Vial Sliding Scale - SQ 2 units ACHS [facility] Administration Protocol Home Medications Medication Instructions Recorded Aspirin [ASA -] 81 mg PO DAILY 01/02/17 Cholecalciferol (Vitamin D3) 5,000 unit PO WEEKLY 01/02/17 [Vitamin D -] Febuxostat [Uloric] 40 mg PO DAILY 01/02/17 Furosemide [Lasix] 20 mg PO DAILY 01/02/17 Gabapentin 300 mg PO DAILY 01/02/17 Glimepiride [Amaryl] 2 mg PO DAILY 01/02/17 Lipitor 10 mg PO HS 01/02/17 Carvedilol [Coreg -] 3.125 mg PO BID 06/17/18 Enalapril Maleate 5 mg PO DAILY 06/17/18 Abdomen US: No evidence of AAA, IVC is patent. s/p cholecystectomy with no evidence of biliary ductal dilatation Mild diffuse Fatty infiltration of liver, BL renal cysts with no evidence of hydronephrosis or acute renal pathology. ECHO: left ventricle is severely dilated, LV systolic function is severely reduced. Severe global hypokinesis of left ventricle, pacemaker lead in the right ventricle,moderate MR. Trace TR, [place], [place]. Duplex of LE: No DVT ASSESSMENT AND PLAN: Patient is a 77 y/o male with a history of HTN, HLD, CAD s/p stents, VA s/p defribilator, gout, and DM who presents for dyspnea and is being admitted to r/ o PE. #Acute dyspnea improved most likely due to elevated BNP of 38K/ diastolic CHF on Coreg ,will continue Lasix since he is back to his baseline as per ' s note baselin eof 1.88, is 1.9 today. #ELLIOTT on CKD; Baselin is 1.8-->1.9 today, presented 2.7---> 2.50-->1.9 improving. #elevated T bili: most likely due to liver congestion/fatty infiltration. improving is 1.6 today. #Hx of VA s/p stent. #elevated TSH, and FT4, as per sample grader most likely sick euthyroid. will follow with as an outpatient. #DM ss with coverage # Hx of gout. will discharge patient home.
[2018-06-18 14:56] VITALS: BP 113/74; PULSE 83; TEMP 97.7
[2018-06-19 04:10] LABS: SERUM IRON SATURATION 10 % (15-55); TOTAL IRON BINDING CAPACITY 283 ug/dL (250-450); UIBC 255 ug/dL (111-343)
[2018-06-20 00:10] LABS: THYROID STIM IMMUNOGLOBULIN <0.10 IU/L (0.00-0.55)
== END 2018-06-18 15:31 | disposition home or self-care (01) ==
LOC: JER 15:39 → JERBED 22:43 → INTOOBSV 22:43 → J4S 06-17 03:10
PROVIDERS: ADMIT Internal Medicine; ATTEND Internal Medicine
PROC: 3E0337Z Introduction of Electrolytic and Water Balance Substance into Peripheral Vein, Percutaneous Approach (ICD-10-PCS; principal; 2018-06-16)
PROC: 3E013VG Introduction of Insulin into Subcutaneous Tissue, Percutaneous Approach (ICD-10-PCS; 2018-06-16)
PROC: 3E013GC Introduction of Other Therapeutic Substance into Subcutaneous Tissue, Percutaneous Approach (ICD-10-PCS; 2018-06-16)
DX: R06.00 Dyspnea, unspecified (principal); E11.22 Type 2 diabetes mellitus with diabetic chronic kidney disease; I13.0 Hypertensive heart and chronic kidney disease with heart failure and stage 1 through stage 4 chronic kidney disease, or unspecified chronic kidney disease; N18.9 Chronic kidney disease, unspecified; I50.20 Unspecified systolic (congestive) heart failure; N17.9 Acute kidney failure, unspecified; Z79.84 Long term (current) use of oral hypoglycemic drugs; E78.5 Hyperlipidemia, unspecified; I25.10 Atherosclerotic heart disease of native coronary artery without angina pectoris; I25.2 Old myocardial infarction; M10.9 Gout, unspecified; R00.0 Tachycardia, unspecified; I42.9 Cardiomyopathy, unspecified; D64.9 Anemia, unspecified; E80.7 Disorder of bilirubin metabolism, unspecified; R94.6 Abnormal results of thyroid function studies; R79.89 Other specified abnormal findings of blood chemistry; R63.4 Abnormal weight loss; J43.9 Emphysema, unspecified; R53.1 Weakness; Z95.810 Presence of automatic (implantable) cardiac defibrillator; Z95.5 Presence of coronary angioplasty implant and graft; Z79.82 Long term (current) use of aspirin
CPT/HCPCS: 36415; 71045-TC-FY; 76700-TC; 76775-TC; 80053; 80061; 80162; 81003; 82248; 82550; 82553; 82565; 82962; 83540; 83550; 83721; 83735; 83880; 84100; 84156; 84300; 84439; 84443; 84445; 84480; 84484; 84540; 85025; 85379; 85610; 86376; 87205; 93005; 93010; 93306-TC; 93970-TC; 96360; 96372; 99285-25; G0378; J1644

== ENCOUNTER 2018-06-20 13:54 | Observation (INO) | payer OTHER | END 2018-06-22 12:05 | disposition home or self-care (01) | LOC: JER 13:54 → JERBED 20:49 → J4S 06-21 11:03 → JERBED 18:44 → J4S 20:49 ==

== ENCOUNTER 2018-06-30 20:19 | Inpatient (IN) | payer OTHER ==
--- NOTE | 2018-06-30 20:30 | PDOC ---
Rapid Medical Evaluation Time Seen by Provider: 06/30/18 20:30 Medical Evaluation: Allergies Allergy/AdvReac Type Severity Reaction Status Date / Time No Known Allergies Allergy Verified 06/16/18 15:46 06/30/18 20:30 I have performed a brief in-person evaluation of this patient. The patient presents with a chief complaint of: d/c on 22 of June from this hospital, sent here by mattress stuffer MD Yane Connolly for hypotension, daughter reports patient has had increased weakness and states glucose check today was 48 - he was given "a teaspoon of sugar and it brought it up", daughter also reports patient has had worsening change in behavior x "months", pt c/o "pain to my knee", patient PCP Dr. Holden Hx of NIDDM, HTN, HLD, CAD s/p stents, COPD, CHF, CKD Pertinent physical exam findings: pale, +speech dyspnea, lethargic, hypotensive 86/48 I have ordered the following: ekg, labs, head CT, urine The patient will proceed to the ED for further evaluation.
--- NOTE | 2018-06-30 21:30 | PDOC ---
History of Present Illness - General Chief Complaint: Weakness Stated Complaint: WEAK BLOOD PRESURE LOW Time Seen by Provider: 06/30/18 20:30 - History of Present Illness Initial Comments: 77 y/o male with a history of HTN, HLD, LV dysfunction/CHF, CKD 4, CAD s/p stents, PR s/p defribilator, gout, DM, COPD due to smoking history?, recently admitted twice (06/16/18-06/18/18) and (06/20/18-06/22/18) for dyspnea and r/o PE vs chf vs COPD exac. Patient's daughters are at the bedside providing collateral history. They state he has had worsening weakness and poor po intake. Upon seeing his automatic furnace operator, he was noted to be hypotensive and recommended to present to the ED. His daughter also notes a glucose check today was 48 - "he was given "a teaspoon of sugar and it brought it up." He usually ambulates without assistance, but has had to use a cane recently. Patient does not have acute complaints. His daughters also note that he seems dyspneic, though the patient denies this. No fevers, chills, or chest pain. PCP: Dr. Holden Renal: Dr. Yane Connolly Past History - Past Medical History Allergies/Adverse Reactions: Allergies Allergy/AdvReac Type Severity Reaction Status Date / Time No Known Allergies Allergy Verified 06/30/18 20:31 Home Medications: Ambulatory Orders Aspirin [ASA -] 81 mg PO DAILY 01/02/17 Cholecalciferol (Vitamin D3) [Vitamin D -] 5,000 unit PO WEEKLY 01/02/17 Febuxostat [Uloric] 40 mg PO DAILY 01/02/17 Furosemide [Lasix] 20 mg PO DAILY 01/02/17 Gabapentin 300 mg PO DAILY 01/02/17 Glimepiride [Amaryl] 2 mg PO DAILY 01/02/17 Lipitor 10 mg PO HS 01/02/17 Carvedilol [Coreg -] 3.125 mg PO BID 06/17/18 Budesonide/Formeterol Fumarate [SYMBICORT 160/4.5mcg -] 2 puff IH BID #1 inhaler 06/21/18 Anemia: Yes Asthma: No Cancer: No Cardiac Disorders: Yes (CAD s/p STENTS(04), PR, CARDIOMYOPATHY, PPM/AICD) CVA: No COPD: Yes CHF: No Dementia: No Diabetes: Yes (IDDM) GI Disorders: No Disorders: Yes (URINARY FREQUENCY) HTN: Yes Hypercholesterolemia: Yes Liver Disease: No Seizures: No Thyroid Disease: Yes (NODULE) - Surgical History Abdominal Surgery: No Appendectomy: No Cardiac Surgery: (cardiac stent, PPM/AICD) Cholecystectomy: Yes (LAPAROSCOPIC) Lung Surgery: No Neurologic Surgery: No Orthopedic Surgery: No - Immunization History Immunization Up to Date: Yes - Suicide/Smoking/Psychosocial Hx Smoking Status: Yes Smoking History: Former smoker Have you smoked in the past 12 months: No Number of Cigarettes Smoked Daily: 10 If you are a former smoker, when did you quit?: many years ago Information on smoking cessation initiated: No 'Breaking Loose' booklet given: 02/19/16 Hx Alcohol Use: No Drug/Substance Use Hx: No Substance Use Type: None Hx Substance Use Treatment: No Review of Systems - Review of Systems Comments:: Constitutional: no fever, no chills HEENT: no throat pain, no dysphagia Cardiovascular: no chest pain, no palpitations Respiratory: no cough, +shortness of breath Gastrointestinal: no vomiting, no nausea Genitourinary: no dysuria, no frequency Musculoskeletal: no myalgia, no arthralgia Skin: no rash, no itching Neurologic: no headache, +weakness *Physical Exam - Vital Signs Last Vital Signs Temp Pulse Resp BP Pulse Ox 97.2 F L 87 24 H 86/58 L 99 06/30/18 20:31 06/30/18 20:31 06/30/18 20:31 06/30/18 20:31 06/30/18 20:31 - Physical Exam Comments: General: Awake, alert, and fully oriented, in no acute distress Head: No signs of trauma Eyes: EOMI, sclera anicteric ENT: Moist mucus membranes Neck: Normal ROM, supple Lungs: Lungs clear, Normal breath sounds Cardio: Regular rhythm, S1 and S2 present Abdomen: Soft, nontender. No guarding, no rebound, no masses Extremities: Normal range of motion, Distal pulses present SKIN: Warm, Dry, normal turgor Neurologic: Cranial nerves II through XII grossly intact. Normal speech ED Treatment Course - LABORATORY CBC & Chemistry Diagram: 06/30/18 21:30 06/30/18 21:30 Medical Decision Making - Medical Decision Making 77 y/o male with a history of HTN, HLD, LV dysfunction/CHF, CKD 4, CAD s/p stents, PR s/p defribilator, gout, DM, COPD due to smoking history?, recently admitted twice (06/16/18-06/18/18) and (06/20/18-06/22/18) for dyspnea and r/o PE vs chf vs COPD exac. Vitals significant for hypotention, 1L NS ordered CXR without acute pathology, my impression CBC WBC 5.9 K/mm3 (4.0-10.0) 06/30/18 21: RBC 4.27 M/mm3 (4.00-5.60) 06/30/18 21: Hgb 12.7 GM/dL (11.7-16.9) 06/30/18 21:30 Hct 40.6 % (35.4-49) 06/30/18 21: MCV 95.0 fl (80-96) 06/30/18 21: MCH 29.8 pg (25.7-33.7) 06/30/18 21: MCHC 31.4 g/dl (32.0-35.9) L 06/30/18 21: RDW 16.2 % (11.9-15.9) H 06/30/18 21:30 Plt Count 153 K/MM3 (134-434) D 06/30/18 21:30 MPV 8.4 fl (7.5-11.1) 06/30/18 21:30 Absolute Neuts (auto) 4.0 K/mm3 (1.5-8.0) 06/30/18 21:30 Neutrophils % 66.7 % (42.8-82.8) D 06/30/18 21:30 Lymphocytes % 23.5 % (8-40) D 06/30/18 21:30 Monocytes % 8.4 % (3.8-10.2) 06/30/18 21:30 Eosinophils % 1.0 % (0-4.5) 06/30/18 21:30 Basophils % 0.4 % (0-2.0) 06/30/18 21: Nucleated RBC % 0 % (0-0) 06/30/18 21:30 No anemia or leukocytosis CMP Sodium 135 mmol/L (136-145) L 06/30/18:30 Potassium 4.7 mmol/L (3.5-5.1) 06/30/18: Chloride 101 mmol/L (98-107) 06/30/18: Carbon Dioxide 24 mmol/L (21-32) 06/30/18: Anion Gap 10 MMOL/L (8-16) 06/30/18: BUN 93 mg/dL (7-18) H 06/30/18:30 Creatinine 2.7 mg/dL (0.55-1.3) H 06/30/18:30 Est GFR (CKD-EPI)AfAm 25.39 06/30/18: Est GFR (CKD-EPI)NonAf 21.90 06/30/18: Random Glucose 160 mg/dL (74-106) H 06/30/18: Calcium 8.6 mg/dL (8.5-10.1) 06/30/18: Total Bilirubin 1.7 mg/dL (0.2-1) H 06/30/18:30 AST 152 U/L (15-37) H 06/30/18:30 ALT 292 U/L (13-61) H 06/30/18:30 Alkaline Phosphatase 75 U/L (45-117) 06/30/18: Creatine Kinase 160 U/L (26-308) 06/30/18: Creatine Kinase Index 1.0 % (0.0-5.0) 06/30/18: CK-MB (CK-2) 1.7 ng/mL (0.5-3.6) 06/30/18: Troponin I 0.02 ng/ml (0.00-0.05) 06/30/18: B-Natriuretic Peptide 48562.4 pg/ml (5-450) H 06/30/18: Total Protein 6.6 g/dl (6.4-8.2) 06/30/18: Albumin 3.3 g/dl (3.4-5.0) L 06/30/18:30 Labs notable for transaminitis. RUQ ultrasound ordered. BNP elevated, but appears to be at patient's baseline Tpn undetectable Cr=2.7 which is elevated from baseline of 2.1 indicative of acute on chronic kidney disease 06/30/18 23:48 EKG: rate 86, Qtc 536, biventricular pacemaker detected, no ST d/e 07/01/18 00:14 US: "FINDINGS: The liver is mildly fatty, without mass or biliary duct dilation. Status post cholecystectomy The CBD is not dilated and measures6 millimeters in diameter. Right kidney measures 9.0centimeters in length and is unremarkable. The visualized aorta and IVC are normal. Pancreas is partially obscured, but appears normal. IMPRESSION: Fatty liver mildly fatty" 07/01/18 00:43 Repeat BP 102/75 07/01/18 00:[address] Ziegler who accepted patient for admission under Dr. Coppola 07/01/18 01:08 *DC/Admit/Observation/Transfer Diagnosis at time of Disposition: ELLIOTT (acute kidney injury), Weakness Hypotension Qualifiers: Hypotension type: unspecified hypotension type Qualified Code(s): I95.9 - Hypotension, unspecified - Discharge Dispostion Condition at time of disposition: Guarded Decision to Admit order: Yes - Referrals - Patient Instructions - Post Discharge Activity
[2018-06-30 21:42] LABS: BASO % 0.4 % (0-2.0); HEMATOCRIT 40.6 % (35.4-49); HEMOGLOBIN 12.7 GM/dL (11.7-16.9); LYMPH % 23.5 % (8-40); MCH 29.8 pg (25.7-33.7); MCHC 31.4 g/dl (32.0-35.9); MEAN PLT VOLUME 8.4 fl (7.5-11.1); MONO % 8.4 % (3.8-10.2); NEUT % 66.7 % (42.8-82.8); PLATELET COUNT 153 K/MM3 (134-434); RBC 4.27 M/mm3 (4.00-5.60); RDW 16.2 % (11.9-15.9); WHITE BLOOD COUNT 5.9 K/mm3 (4.0-10.0)
[2018-06-30] MEDS ORDERED: SODIUM CHLORIDE 1,000 ML IV STA (21:46)
[2018-06-30 22:07] LABS: INR 1.64 (0.83-1.09); PROTHROMBIN TIME (PATIENT) 19.4 SEC (9.7-13.0)
[2018-06-30 22:29] LABS: ALBUMIN 3.3 g/dl (3.4-5.0); BILIRUBIN,TOTAL 1.7 mg/dL (0.2-1); CALCIUM 8.6 mg/dL (8.5-10.1); CREATININE 2.7 mg/dL (0.55-1.3); POTASSIUM 4.7 mmol/L (3.5-5.1); TOT PROT 6.6 g/dl (6.4-8.2)
[2018-06-30] MEDS ORDERED: SODIUM CHLORIDE 0.9% 1000 ML INFUS.BAG IV ONE (22:51)
--- NOTE | 2018-07-01 00:17 | PDOC ---
Documentation entered by Anel Zimmerman SCRIBE, acting as scribe for Viktoria Knight DO. Viktoria Knight DO: This documentation has been prepared by the Erasmo herron Daisy, SCRIBE, under my direction and personally reviewed by me in its entirety. I confirm that the documentation accurately reflects all work, treatment, procedures, and medical decision making performed by me. Attending Attestation - Resident Resident Name: Patricia Kate - ED Attending Attestation I have performed the following: I have examined & evaluated the patient, The case was reviewed & discussed with the resident, I agree w/resident's findings & plan - HPI HPI: 06/30/18 22:02 The patient is a 77YOM with a PMH of HTN, HLD, CKD, CAD s/p stents, [place] s/p defibrillator, gout, COPD, hypothyroidism, and CHF who presents to the ER sent in by Dr. Connolly with generalized weakness, poor appetite, and after becoming hypotensive while in his office. Patient has had two recent admissions for dyspnea on exertion to rule out PE in this ED. Patient has been followed up by a service team leader. Denies fever, chills, cp, N/V/C/D or urinary symptoms. Allergies: NKDA Social Hx: Former smoker. Denies drug or alcohol use. PCP: Dr. Holden Renal: Dr. Yane Connolly - Physicial Exam PE: 06/30/18 22:03 Constitutional: Awake, alert (+) confused. (+) generalized weakness. (+) follows commands. Cardiovascular: Regular rate. Regular rhythm. S1, S2 regular. Distal pulses are 2+ and symmetric. Pulmonary/Chest: No evidence of respiratory distress. Clear to auscultation bilaterally No wheezing, rales or rhonchi. Abdominal: Soft and non-distended. There is no tenderness. No rebound, guarding or rigidity. Back: No CVA tenderness. Musculoskeletal: No edema. No cyanosis. No clubbing. Full range of motion in all extremities. No calf tenderness. Radial/pedal pulses are intact and 2+ bilaterally Skin: Skin is warm and dry. No petechiae. No purpura. Neurological: No focal deficits. - Medical Decision Making 07/01/18 00:07 I, Dr. Viktoria Knight, DO, attest that this document has been prepared under my direction and personally reviewed by me in its entirety. I further attest, that it accurately reflects all work, treatment, procedures and medical decision -making performed by me. 07/01/18 00:10 a/p: 77yo male with low bp and generalized weakness -Dr. Mikhail Ling had stopped lasix and enalapril, but daughter mistakedly continued to give it -generalized weakness, confusion today, low bp -no signs/symptoms of infectious etiology -suspect low bp from bp meds -will send labs, head ct, ekg, cxr, trop -will give gentle IVF hydration -will need obs for ivf hydraiton/bp management -will monitor and reassess 07/01/18 00:16 justen on ckd transaminitis cxr clear no acute findings on ekg trop neg elevated bnp, but no signs of heart failure on cxr or exam will send for ultrasound 07/01/18 00:50 ultrasound shows fatty liver bp 102 microblog sent to [facility] for obs for altered ms, generalized weakness, and bp managmeent 07/01/18 01:12 resident discussed the case with [facility] who accepts pt to service Heart Score/ECG Review - ECG Intrepretation Comment:: 07/01/18 00:09 paced at 86, no acute findings
--- NOTE | 2018-07-01 00:56 | PN ---
Teaching Attending Note Name of Resident: Viktor Ziegler ATTENDING PHYSICIAN STATEMENT I saw and evaluated the patient. I reviewed the resident's note and discussed the case with the resident. I agree with the resident's findings and plan as documented. SUBJECTIVE: Patient is a 77 year old man with a PMH of HTN, HLD, systolic CHF, ?CKD, CAD s/ p stents, [place] s/p defribilator, gout, NIDDM, cholecystectomy and COPD brought to the ER for worsening weakness, poor oral intake and hypotension noted in his donor support technician's office today. He was recently admitted twice (06/16/18-06/18/18) and (06/20/18-06/22/18) for dyspnea and r/o PE vs CHF vs COPD exacerbation. Patient's daughters are at the bedside providing collateral history. They state he has had worsening weakness and poor po intake. Upon seeing his donor support technician, he was noted to be hypotensive and recommended to present to the ER. He usually ambulates without assistance, but has had to use a cane recently. Patient does not have acute complaints. His daughters also note that he seems dyspneic, though the patient denies this. No fevers, chills, or chest pain. Patient is very weak and somnolent and barely able to keep his eyes open to answer questions. OBJECTIVE: Somnolent but arousable Vital Signs Period Temp Pulse Resp BP Sys/Robbins Pulse Ox Last 24 Hr 97.2 F 84-87 20-24 86-93/58-77 97-99 HEENT: No Jaundice, eye redness or discharge, PERRLA, EOMI. Normocephalic, atraumatic. External ears are normal and hearing is grossly intact. No nasal discharge. Neck: Supple, nontender. No palpable adenopathy or thyromegaly. No JVD Chest: Good effort. Clear to auscultation and percussion. Heart: Regular. No S3, rub or murmur Abdomen: Not distended, soft, nontender and no HSM. No rebound or guarding. Normal bowel sounds. Ext: Peripheral pulses intact. No leg edema. Skin: Warm and dry. No petechiae, rash or ecchymosis. Neuro: Somnolent but arousable. Oriented to person. Global weakness. CN 2-12 grossly intact. Sensation grossly intact in all four extremities and DTR are symmetric. Psych: Appropriate mood and affect. Good insight. Current Medications Generic Name Dose Route Start Last Admin Trade Name Mariela PRN Reason Stop Dose Admin Aspirin 81 mg 07/01/18 10:00 Asa - PO DAILY [facility] Atorvastatin Calcium 10 mg 07/01/18 22:00 Lipitor - PO HS [facility] Budesonide/Formoterol Fumarate 2 puff 07/01/18 10:00 Symbicort 160/4.5mcg - IH BID [facility] Carvedilol 3.125 mg 07/01/18 10:00 Coreg - PO BID [facility] Cholecalciferol 5,000 unit 07/01/18 01:30 Vitamin D3 - PO WEEKLY [facility] Insulin Aspart 1 vial 07/01/18 07:00 Novolog Vial Sliding Scale - SQ ACHS [facility] Protocol Home Medications Medication Instructions Recorded Aspirin [ASA -] 81 mg PO DAILY 01/02/17 Cholecalciferol (Vitamin D3) 5,000 unit PO WEEKLY 01/02/17 [Vitamin D -] Febuxostat [Uloric] 40 mg PO DAILY 01/02/17 Furosemide [Lasix] 20 mg PO DAILY 01/02/17 Gabapentin 300 mg PO DAILY 01/02/17 Glimepiride [Amaryl] 2 mg PO DAILY 01/02/17 Lipitor 10 mg PO HS 01/02/17 Carvedilol [Coreg -] 3.125 mg PO BID 06/17/18 Budesonide/Formeterol Fumarate 2 puff IH BID #1 inhaler 06/21/18 [SYMBICORT 160/4.5mcg -] Abnormal Lab Results 06/30/18 06/30/18 06/30/18 21:30 21:30 21:30 MCHC 31.4 L RDW 16.2 H PT with INR 19.40 H INR 1.64 H Sodium 135 L BUN 93 H Creatinine 2.7 H Random Glucose 160 H Total Bilirubin 1.7 H AST 152 H ALT 292 H B-Natriuretic Peptide Albumin 3.3 L 06/30/18 21:30 MCHC RDW PT with INR INR Sodium BUN Creatinine Random Glucose Total Bilirubin AST ALT B-Natriuretic Peptide 06449.4 H Albumin ASSESSMENT AND PLAN: 1. Weakness/Hypotension - Excessive diuresis and carvedilol therapy superimposed on CHF-associated hypotension may explain his presentation. Recent ECHO showed severe global hypokinesis. EKG shows paced-rhythm with no acute ST- T wave changes and initial troponin is negative. No acute pathology on head CT and CXR. Abdominal sonogram done to evaluate elevated LFTs shows fatty infiltration of the liver, cholecystectomy and no dilatation of CBD. Hepatic congestion due to CHF or shock liver due to hypotension may explain elevated LFTs. Will get urinalysis stat to rule out UTI, trend LFTs, get hepatitis serology and uric acid level; hold lasix, carvedilol, gabapentin and urolic. Hydrate GENTLY, get daily weight and implement strict fall precautions and neurochecks. If his symptoms persist after hydration, will rule out adrenal hypofunction and consult neurology (Unable to get brain MRI due to defibrillator). Do speech and swallow evaluation before feeding him and consult PT. 2. Hypoalbuminemia - Possibly due to combined effects of malnutrition and inflammation associated with comorbid chronic conditions. Will ensure adequate dietary protein intake and also consult business process manager. 3. DM For now, we will hold the home diabetes drugs and implement sliding scale insulin regimen. Provide comprehensive diabetes care with patient teaching and counseling about the importance of adherence to prescribed diabetes regimen, euglycemia, eye care and foot care. 4. CKD? - Well preserved hematocrit and ?"normal" kidneys on sonogram suggest a significant proportion of his azotemia may indeed be "ELLIOTT" from impaired renal perfusion due to CHF and effects of diuresis. Will get urine protein/creatinine ratio, PTH level and phosphate. Avoid nephrotoxic agents such as NSAIDS, aminoglycosides, contrast dyes and certain Alternative medicine products. 5. DVT prophylaxis - Heparin 5000u sq tid. 6. Advance directives - Full code
[2018-07-01] MEDS ORDERED: CHOLECALCIFEROL (VIT D3) 400 UNIT (10 MCG) TABLET PO SCH (01:30)
[2018-07-01] MEDS ORDERED: SODIUM CHLORIDE 1,000 ML IV SCH (01:30)
--- NOTE | 2018-07-01 02:33 | HP ---
CHIEF COMPLAINT: weakness HISTORY OF PRESENT ILLNESS: 77-year-old male with a history of hypertension, hyperlipidemia, left ventricular dysfunction/congestive heart failure, chronic kidney disease stage 4 , Coronary artery disease S/P stenting, [place] S/P defibrillator placement, gout, diabetes, COPD Presented to the Hospital for worsening weakness and poor PO intake. He was at his material analyst's office and was found to be hypotensive and sent to the emergency room. Patient's family was not at bedside and the patient is a poor historian. Much of the history was obtained through the emergency room. According to the ED, The patient's material analyst stopped his Lasix and enalapril however daughter continue to give the medication.The patient currently complains of not feeling like himself, but does not localize any pain or distress.He denies any chest pain, shortness of breath, nausea, vomiting, diarrhea, fevers, chills. An echocardiogram done a week ago showed severe global hypokinesis and severe left ventricular dysfunction. Recent Travel: Denies PAST MEDICAL HISTORY: As stated above Social History: Smoking: Denies Alcohol: Denies Drugs: Denies Family History: Unable to obtain as the patient could not recall Allergies No Known Allergies Allergy (Verified 06/30/18 20:31) HOME MEDICATIONS: Home Medications Medication Instructions Recorded Aspirin [ASA -] 81 mg PO DAILY 01/02/17 Cholecalciferol (Vitamin D3) 5,000 unit PO WEEKLY 01/02/17 [Vitamin D -] Febuxostat [Uloric] 40 mg PO DAILY 01/02/17 Furosemide [Lasix] 20 mg PO DAILY 01/02/17 Gabapentin 300 mg PO DAILY 01/02/17 Glimepiride [Amaryl] 2 mg PO DAILY 01/02/17 Lipitor 10 mg PO HS 01/02/17 Carvedilol [Coreg -] 3.125 mg PO BID 06/17/18 Budesonide/Formeterol Fumarate 2 puff IH BID #1 inhaler 06/21/18 [SYMBICORT 160/4.5mcg -] REVIEW OF SYSTEMS CONSTITUTIONAL: Absent: fever, chills, diaphoresis, generalized weakness, malaise, loss of appetite, weight change HEENT: Absent: rhinorrhea, nasal congestion, throat pain, throat swelling, difficulty swallowing, mouth swelling, ear pain, eye pain, visual changes CARDIOVASCULAR: Absent: chest pain, syncope, palpitations, irregular heart rate, lightheadedness , peripheral edema RESPIRATORY: Absent: cough, shortness of breath, dyspnea with exertion, orthopnea, wheezing, stridor, hemoptysis GASTROINTESTINAL: Absent: abdominal pain, abdominal distension, nausea, vomiting, diarrhea, constipation, melena, hematochezia GENITOURINARY: Absent: dysuria, frequency, urgency, hesitancy, hematuria, flank pain, genital pain MUSCULOSKELETAL: Absent: myalgia, arthralgia, joint swelling, back pain, neck pain SKIN: Absent: rash, itching, pallor HEMATOLOGIC/IMMUNOLOGIC: Absent: easy bleeding, easy bruising, lymphadenopathy, frequent infections ENDOCRINE: Absent: unexplained weight gain, unexplained weight loss, heat intolerance, cold intolerance NEUROLOGIC: Absent: headache, focal weakness or paresthesias, dizziness, unsteady gait, seizure, mental status changes, bladder or bowel incontinence PSYCHIATRIC: Absent: anxiety, depression, suicidal or homicidal ideation, hallucinations. PHYSICAL EXAMINATION Vital Signs - 24 hr 06/30/18 06/30/18 20:31 23:21 Temperature 97.2 F L Pulse Rate 87 Pulse Rate [ 84 Apical] Respiratory 24 H 20 Rate Blood Pressure 86/58 L Blood Pressure 93/77 [Left Arm] O2 Sat by Pulse 99 97 Oximetry (%) GENERAL: A&Ox2, no acute distress EYES: PERRLA, EOMI ENT: Moist mucus membranes NECK: No JVD LUNGS: CTA, no wheezes HEART: RRR, no murmurs, Defibrillator placed in L chest wall ABDOMEN: Soft, nontender, BS present MUSCULOSKELETAL: No CVA Tenderness EXTREMITIES: 2+ pulses, no edema. NEUROLOGICAL: Cranial nerves II-XII intact. Laboratory Results - last 24 hr 06/30/18 06/30/18 06/30/18 21:30 21:30 21:30 WBC 5.9 RBC 4.27 Hgb 12.7 Hct 40.6 MCV 95.0 MCH 29.8 MCHC 31.4 L RDW 16.2 H Plt Count 153 D MPV 8.4 Absolute Neuts (auto) 4.0 Neutrophils % 66.7 D Lymphocytes % 23.5 D Monocytes % 8.4 Eosinophils % 1.0 Basophils % 0.4 Nucleated RBC % 0 PT with INR 19.40 H INR 1.64 H Sodium 135 L Potassium 4.7 Chloride 101 Carbon Dioxide 24 Anion Gap 10 BUN 93 H Creatinine 2.7 H Est GFR (CKD-EPI)AfAm 25.39 Est GFR (CKD-EPI)NonAf 21.90 Random Glucose 160 H Calcium 8.6 Total Bilirubin 1.7 H AST 152 H ALT 292 H Alkaline Phosphatase 75 Creatine Kinase 160 Creatine Kinase Index 1.0 CK-MB (CK-2) 1.7 Troponin I 0.02 B-Natriuretic Peptide Total Protein 6.6 Albumin 3.3 L 06/30/18 21:30 WBC RBC Hgb Hct MCV MCH MCHC RDW Plt Count MPV Absolute Neuts (auto) Neutrophils % Lymphocytes % Monocytes % Eosinophils % Basophils % Nucleated RBC % PT with INR INR Sodium Potassium Chloride Carbon Dioxide Anion Gap BUN Creatinine Est GFR (CKD-EPI)AfAm Est GFR (CKD-EPI)NonAf Random Glucose Calcium Total Bilirubin AST ALT Alkaline Phosphatase Creatine Kinase Creatine Kinase Index CK-MB (CK-2) Troponin I B-Natriuretic Peptide 27490.4 H Total Protein Albumin Current Medications Aspirin (Asa -) 81 mg PO DAILY [facility] Budesonide/Formoterol Fumarate (Symbicort 160/4.5mcg -) 2 puff IH BID [facility] Carvedilol (Coreg -) 3.125 mg PO BID [facility] Cholecalciferol (Vitamin D3 -) 5,000 unit PO WEEKLY [facility] Insulin Aspart (Novolog Vial Sliding Scale -) 1 vial SQ ACHS [facility]; Protocol Non-Formulary Medication (Lipitor) 10 mg PO HS [facility] ASSESSMENT/PLAN: 77-year-old male with a history of hypertension, hyperlipidemia, left ventricular dysfunction/congestive heart failure, chronic kidney disease stage 4 , Coronary artery disease S/P stenting, [place] S/P defibrillator placement, gout, diabetes, COPD Presented to the Hospital for worsening weakness and poor PO intake. #Weakness and poor PO intake: Could be related to aggressive diuresis due to continued use of Lasix,There appears to have been a miscommunication between what than a frolic just ordered and what the daughter gave. It appears as though the daughter continue to give the Lasix even though the patient was not supposed to be doing so -BP improved in ED -EKG shows ventricularly paced rhythm with prolonged AV conduction, biventricular pacemaker -Patient appears to be Volume contracted with an elevated BUN and creatinine -BNP 41091 at baseline -will obtain UA -hold lasix -held fluids as there is concern for fluid overload in a patient with severe global hypokinesis of LV -suggest morning team to start fluids slowly ~45cc/hr -encourage PO hydration -med-surg admission -Dr. Connolly consulted #Acute Transaminitis: Unclear etiology Given the information that we have, could be a result of hypotension in the setting of volume depletion. The patient is not on any significant hepatotoxic medications -Will check hepatitis panel -Ultrasound of the right upper quadrant showed fatty infiltration of the liver -Will trend of the liver function tests, if continues to stay elevated will recommend getting an MRCP #ELLIOTT on Chronic Kidney Disease: The patient has a reported history of CKD stage 4 -Will obtain a UA -Continue to monitor electrolytes in the morning -repeat BMPSeeYou're not refusing you're busy with twelve ignitions tonight don' t order #CHF with Severe LV dysfunction: not likely an acute issue -Echocardiogram was recently done about a week ago, Doubt there is a need at the present moment to repeat -EKG was essentially unchanged since prior -If necessary would reconsult cardiology, however at present there is not an indication to do so -continue ASA -continue carvedilol #Diabetes Mellitus: chronic -hold diabetic meds -start insulin sliding scale -BGM ACHS #Coronary Artery Disease: chronic -continue ASA #FEN -no standing fluids -electrolytes normal -diabetic/sodium diet #Prophylaxis -SCDS #Disposition -admit med surg Visit type - Emergency Visit Emergency Visit: Yes ED Registration Date: 07/01/18 Care time: The patient presented to the Emergency Department on the above date and was hospitalized for further evaluation of their emergent condition. - New Patient This patient is new to me today: Yes Date on this admission: 07/01/18 - Critical Care Critical Care patient: No
[2018-07-01 04:22] LABS: URINE APPEARANCE CLEAR; URINE BILIRUBIN NEGATIVE (NEGATIVE); URINE COLOR YELLOW; URINE GLUCOSE (UA) NEGATIVE (NEGATIVE); URINE KETONE NEGATIVE (NEGATIVE); URINE LEUK ESTERASE NEGATIVE (NEGATIVE); URINE NITRITE NEGATIVE (NEGATIVE); URINE PROTEIN NEGATIVE (NEGATIVE)
[2018-07-01] MEDS: INSULIN SLIDING SCALE (NOVOLOG) 1 VIAL SQ SCH ×4 (06:27→21:34)
[2018-07-01 08:22] LABS: HEMATOCRIT 42.1 % (35.4-49); HEMOGLOBIN 13.3 GM/dL (11.7-16.9); MCH 29.7 pg (25.7-33.7); MCHC 31.5 g/dl (32.0-35.9); MEAN CELL VOLUME 94.2 fl (80-96); MEAN PLT VOLUME 8.4 fl (7.5-11.1); PLATELET COUNT 181 K/MM3 (134-434); RBC 4.47 M/mm3 (4.00-5.60)
[2018-07-01 08:58] LABS: ALBUMIN 3.5 g/dl (3.4-5.0); BILIRUBIN,TOTAL 2.2 mg/dL (0.2-1); CALCIUM 8.9 mg/dL (8.5-10.1); CREATININE 2.6 mg/dL (0.55-1.3); MAGNESIUM 2.8 mg/dL (1.8-2.4); PHOSPHOROUS 5.5 mg/dL (2.5-4.9); POTASSIUM 4.7 mmol/L (3.5-5.1); TOT PROT 6.8 g/dl (6.4-8.2)
--- NOTE | 2018-07-01 09:25 | PN ---
Teaching Attending Note Name of Resident: Elmo Wheeler ATTENDING PHYSICIAN STATEMENT I saw and evaluated the patient. I reviewed the resident's note and discussed the case with the resident. I agree with the resident's findings and plan as documented. SUBJECTIVE: Patient is c/o having generalized weakness with no acute distress. OBJECTIVE: Vital Signs Temperature 97.9 F 07/01/18 06:33 Pulse Rate 83 07/01/18 06:33 Respiratory Rate 18 07/01/18 06:33 Blood Pressure 102/72 07/01/18 06:33 O2 Sat by Pulse Oximetry (%) 100 07/01/18 06:33 Initial Vital Signs Temp Pulse Resp BP Pulse Ox 97.2 F L 87 24 H 86/58 L 99 06/30/18 20:31 06/30/18 20:31 06/30/18 20:31 06/30/18 20:31 06/30/18 20:31 GENERAL: The patient is awake, alert, and fully oriented, in no acute distress. HEAD: Normal with no signs of trauma. EYES: PERRL, extraocular movements intact, sclera anicteric, conjunctiva clear. ENT: Ears normal, oropharynx clear without exudates, moist mucous membranes. NECK: Trachea midline, full range of motion, supple. LUNGS: Breath sounds equal, clear to auscultation bilaterally, no wheezes, no crackles, no accessory muscle use. HEART: Regular rate and rhythm, S1, S2 without murmur, rub or gallop. ABDOMEN: Soft, nontender, nondistended, normoactive bowel sounds, no guarding, no rebound, no hepatosplenomegaly, no masses. EXTREMITIES: 2+ pulses, warm, well-perfused, no edema. NEUROLOGICAL: Cranial nerves II through XII grossly intact. Normal speech, gait not observed. PSYCH: Normal mood, normal affect. SKIN: Warm, dry, normal turgor, no rashes or lesions noted CBCD WBC 6.0 K/mm3 (4.0-10.0) 07/01/18 07:35 RBC 4.47 M/mm3 (4.00-5.60) 07/01/18 07:35 Hgb 13.3 GM/dL (11.7-16.9) 07/01/18 07:35 Hct 42.1 % (35.4-49) 07/01/18 07:35 MCV 94.2 fl (80-96) 07/01/18 07:35 MCHC 31.5 g/dl (32.0-35.9) L 07/01/18 07:35 RDW 16.0 % (11.9-15.9) H 07/01/18 07:35 Plt Count 181 K/MM3 (134-434) 07/01/18 07:35 MPV 8.4 fl (7.5-11.1) 07/01/18 07:35 CMP Sodium 136 mmol/L (136-145) 07/01/18 07:35 Potassium 4.7 mmol/L (3.5-5.1) 07/01/18 07:35 Chloride 103 mmol/L (98-107) 07/01/18 07:35 Carbon Dioxide 21 mmol/L (21-32) 07/01/18 07:35 Anion Gap 12 MMOL/L (8-16) 07/01/18 07:35 BUN 88 mg/dL (7-18) H 07/01/18 07:35 Creatinine 2.6 mg/dL (0.55-1.3) H 07/01/18 07:35 Random Glucose 122 mg/dL (74-106) H 07/01/18 07:35 Calcium 8.9 mg/dL (8.5-10.1) 07/01/18 07:35 Total Bilirubin 2.2 mg/dL (0.2-1) H 07/01/18 07:35 AST 134 U/L (15-37) H 07/01/18 07:35 ALT 272 U/L (13-61) H 07/01/18 07:35 Alkaline Phosphatase 78 U/L (45-117) 07/01/18 07:35 Total Protein 6.8 g/dl (6.4-8.2) 07/01/18 07:35 Albumin 3.5 g/dl (3.4-5.0) 07/01/18 07:35 CARDIAC ENZYMES Creatine Kinase 160 U/L (26-308) 06/30/18 21:30 Troponin I 0.02 ng/ml (0.00-0.05) 06/30/18 21:30 Current Medications Generic Name Dose Route Start Last Admin Trade Name Freq PRN Reason Stop Dose Admin Aspirin 81 mg 07/01/18 10:00 Asa - PO DAILY [facility] Atorvastatin Calcium 10 mg 07/01/18 22:00 Lipitor - PO HS [facility] Budesonide/Formoterol Fumarate 2 puff 07/01/18 10:00 Symbicort 160/4.5mcg - IH BID [facility] Carvedilol 3.125 mg 07/01/18 10:00 Coreg - PO BID [facility] Cholecalciferol 5,000 unit 07/01/18 01:30 Vitamin D3 - PO WEEKLY [facility] Insulin Aspart 1 vial 07/01/18 07:00 07/01/18 06:27 Novolog Vial Sliding Scale - SQ Not Given ACHS [facility] Protocol Home Medications Medication Instructions Recorded Aspirin [ASA -] 81 mg PO DAILY 01/02/17 Cholecalciferol (Vitamin D3) 5,000 unit PO WEEKLY 01/02/17 [Vitamin D -] Febuxostat [Uloric] 40 mg PO DAILY 01/02/17 Furosemide [Lasix] 20 mg PO DAILY 01/02/17 Gabapentin 300 mg PO DAILY 01/02/17 Glimepiride [Amaryl] 2 mg PO DAILY 01/02/17 Lipitor 10 mg PO HS 01/02/17 Carvedilol [Coreg -] 3.125 mg PO BID 06/17/18 Budesonide/Formeterol Fumarate 2 puff IH BID #1 inhaler 06/21/18 [SYMBICORT 160/4.5mcg -] Laboratory Tests 06/16/18 06/16/18 06/16/18 16:31 18:00 19:42 INR BUN Creatinine 2.7 H Random Glucose Uric Acid Phosphorus Magnesium Total Bilirubin 1.4 H AST ALT Troponin I 0.03 B-Natriuretic Peptide 80559.4 H TSH 4.14 H Free T4 1.27 H Total T3 Pending 06/17/18 06/30/18 06/30/18 05:30 21:30 21:30 INR 1.64 H BUN Creatinine 2.5 H Random Glucose Uric Acid Phosphorus Magnesium Total Bilirubin 1.6 H 1.7 H AST 152 H ALT 292 H Troponin I 0.04 B-Natriuretic Peptide TSH Free T4 Total T3 06/30/18 07/01/18 21:30 07:35 INR BUN 88 H Creatinine 2.6 H Random Glucose 122 H Uric Acid 13.1 H* Phosphorus 5.5 H Magnesium 2.8 H Total Bilirubin 2.2 H AST 134 H ALT 272 H Troponin I B-Natriuretic Peptide 88537.4 H TSH 5.07 H D Free T4 Total T3 An echocardiogram done a week ago showed severe global hypokinesis and severe left ventricular dysfunction. EJF 15-20% ASSESSMENT AND PLAN: Patient is a 77yo male with PMHx of hypertension, hyperlipidemia, left ventricular dysfunction/congestive heart failure, chronic kidney disease stage 4 , Coronary artery disease s/p stenting, [place] S/P defibrillator placement, gout, diabetes, COPD , presented to ED. for having worsening generalized weakness and poor oral intake. Also was found to be hypotensive at his doctor's office , was sent to the emergency room for further evaluation . # Acute generalized weakness: most likely due to having low Blood pressure # Hx of copd continue home meds. #ELLIOTT on CKD; Baselin is 1.8-->2.0--> 2.6 today , nephro consulted dr Ling , hold lasix and vasotec ## Hx of gout with elevated Uric acid #elevated T bili with LFTs most likely due to having liver congestion due to elevated BNP : most likely due to liver congestion/fatty infiltration. improving is 1.6 today. #Hx of [place] s/p stent. #elevated TSH, and FT4, as per university lecturer most likely sick euthyroid. Follow with as an outpatient, for further w/u #DM ss with coverage DVT Px: HEparin sq
[2018-07-01] MEDS ORDERED: GABAPENTIN 300 MG CAPSULE (FP) PO SCH (10:00)
[2018-07-01] MEDS ORDERED: FEBUXOSTAT 40 MG TAB PO SCH (10:00)
[2018-07-01 11:08] LABS: URIC ACID 13.1 mg/dL (2.6-7.2)
[2018-07-01] MEDS: ASPIRIN 81 MG CHEWABLE TABLETS PO SCH (11:24)
[2018-07-01] MEDS: CARVEDILOL 3.125 MG TABLET (FP) PO SCH ×2 (11:25→21:23)
[2018-07-01] MEDS ORDERED: PT OWN MED DRAWER 7, Y5N ONE (12:54)
--- NOTE | 2018-07-01 13:12 | EKG ---
Test Reason : Blood Pressure : / mmHG Vent. Rate : 086 BPM Atrial Rate : 086 BPM P-R Int : 226 ms QRS Dur : 180 ms QT Int : 448 ms P-R-T Axes : -11 -42 059 degrees QTc Int : 536 ms Atrial-sensed ventricular-paced rhythm with prolonged AV conduction Biventricular pacemaker detected ABNORMAL ECG WHEN COMPARED WITH ECG OF 21-JUN-2018 15:33, VENT. RATE HAS DECREASED BY 7 BPM Confirmed by GODWIN CHACON MD ([id number]) on 07/01/2018 1:12:14 PM Referred By: Confirmed By:GODWIN CHACON MD
[2018-07-01] MEDS: FEBUXOSTAT 40 MG TAB PO SCH (13:16)
--- NOTE | 2018-07-01 13:26 | CONSULT ---
Consult - text type - Consultation Consultation Note: Renal Consult for ELLIOTT on CKD This is a 77 year old gentleman with hx of CKD stage 3 (baseline Cr 1.8-2), CAD s/p PCI, CHF with very low LVEF, hyperlipidemia, hypertension, AICD placement, DM, COPD who presented from Dr. Connolly s office with hypotension and found to have increasing confusion and ELLIOTT. Pt seen at the bedside but is very confused and not able to provide history. Daughter reports gradual decline in mental status over the past few weeks with increasing confusion and poor appetite. No fevers, diarrhea, N/V reported. Pt was on MARY and diuretics at home. PMhx: as above Allergies: NKDA Family Hx: NC Social Hx: No T/A/D ROS: as per HPI (limited, obtained from daughter) Home Medications Medication Instructions Recorded Aspirin [ASA -] 81 mg PO DAILY 01/02/17 Cholecalciferol (Vitamin D3) 5,000 unit PO WEEKLY 01/02/17 [Vitamin D -] Febuxostat [Uloric] 40 mg PO DAILY 01/02/17 Furosemide [Lasix] 20 mg PO DAILY 01/02/17 Gabapentin 300 mg PO DAILY 01/02/17 Glimepiride [Amaryl] 2 mg PO DAILY 01/02/17 Lipitor 10 mg PO HS 01/02/17 Carvedilol [Coreg -] 3.125 mg PO BID 06/17/18 Budesonide/Formeterol Fumarate 2 puff IH BID #1 inhaler 06/21/18 [SYMBICORT 160/4.5mcg -] Vital Signs Temperature 97.9 F 07/01/18 06:33 Pulse Rate 83 07/01/18 06:33 Respiratory Rate 18 07/01/18 06:33 Blood Pressure 102/72 07/01/18 06:33 O2 Sat by Pulse Oximetry (%) 100 07/01/18 06:33 Intake & Output 06/28/18 06/29/18 06/30/18 07/01/18 23:59 23:59 23:59 23:59 Weight 83.915 kg 87.679 kg NAD Oriented x 1 Neck supple, no JVD RRR, no M/R CTA, no rales soft NT/ND no LE edmea, clubbing or cyanosis no bladder distension CBC, BMP 07/01/18 07:35 07/01/18 07:35 Current Medications Aspirin (Asa -) 81 mg PO DAILY [facility] Last Admin: 07/01/18 11:24 Dose: 81 mg Atorvastatin Calcium (Lipitor -) 10 mg PO HS [facility] Budesonide/Formoterol Fumarate (Symbicort 160/4.5mcg -) 2 puff IH BID [facility] Carvedilol (Coreg -) 3.125 mg PO BID [facility] Last Admin: 07/01/18 11:25 Dose: 3.125 mg Cholecalciferol (Vitamin D3 -) 5,000 unit PO WEEKLY [facility] Febuxostat (Uloric -) 40 mg PO DAILY [facility] Last Admin: 07/01/18 13:16 Dose: 40 mg Insulin Aspart (Novolog Vial Sliding Scale -) 1 vial SQ ACHS [facility]; Protocol Last Admin: 07/01/18 12:36 Dose: Not Given 77 year old gentleman with hx of CKD stage 3 (baseline Cr 1.8-2), CAD s/p PCI, CHF with very low LVEF, hyperlipidemia, hypertension, AICD placement, DM, COPD who presented from Dr. Connolly s office with hypotension and found to have increasing confusion and ELLIOTT. #ELLIOTT on CKD due to volume depletion #Hypotension #Altered mental status r/o dementia vs. other cause #DM #Hypertension #CHF Will given very gentle IVF hydration with NS at 30cc per hour x 24 hours hold ACEi and diuretics for now check urine studies, no indication for renal imaging at this time Check Vit B12, Folic acid, RPR for worsening confusion check urine culture, UA was negative Consulted Neurology CT head w/o acute changes continue insulin sliding scale Thank you Will follow Mikhail Ling DO
[2018-07-01] MEDS: BUDESONIDE/FORMETEROL FUMARATE 160/4.5 mcg INHALER IH SCH ×2 (15:54→21:34)
--- NOTE | 2018-07-01 17:18 | CON.NEURO ---
Consult - History of Present Illness History of Present Illness: 77-year-old male with a history of hypertension, hyperlipidemia, left ventricular dysfunction/congestive heart failure, chronic kidney disease stage 4 , Coronary artery disease S/P stenting, GA S/P defibrillator placement, gout, diabetes, COPD Presented to the Hospital for worsening weakness and poor PO intake. 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 today , he denies any formal complaint besides being weak; no focal motor / sensory c/o . slight dyspnea during history taking. NO ETOH, smoking. NO WHITE . recent- echocardiogram: severe global hypokinesis and severe left ventricular dysfunction. CT HD : Sequential axial images were obtained from the base of the skull to the vertex. There is no evidence of acute intracranial hemorrhage, mass lesions or infarctions. There is a moderate degree of diffuse cerebral atrophy with sulcal widening and ventricular dilatation. IMPRESSION: No evidence of acute intracranial pathology. Labs : creatinine 26/lfts elevated/inc uric acid - Past Medical History Cardio/Vascular: Yes: CAD, CHF, HTN, Hyperlipdemia, GA ("several years ago"), Pulmonary Hypertension, Other (defibrillator,s/p cardiac stent at [facility]) Pulmonary: Yes: COPD ("emphysema", per pt's daughter (Yeimi)) Gastrointestinal: Yes: Diverticulosis, Other (colon adenoma removed 02/19/16) Hepatobiliary: Yes: Cholelithiasis (s/p lap choly) Renal/: Yes: Renal Failure (chronic) Psych: Yes: Anxiety Rheumatology: Yes: Gout Endocrine: Yes: Diabetes Mellitus - Past Surgical History Past Surgical History: Yes: AICD, Cholecystectomy, Colonoscopy - Alcohol/Substance Use Hx Alcohol Use: No History of Substance Use: reports: None - Smoking History Smoking history: Former smoker Have you smoked in the past 12 months: No Aproximately how many cigarettes per day: 10 If you are a former smoker, when did you quit?: many years ago - Social History Usual Living Arrangement: Alone ADL: Independent 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 History of Recent Travel: No Home Medications - Allergies Allergies/Adverse Reactions: Allergies Allergy/AdvReac Type Severity Reaction Status Date / Time No Known Allergies Allergy Verified 06/30/18 20:31 - Home Medications Home Medications: Ambulatory Orders Aspirin [ASA -] 81 mg PO DAILY 01/02/17 Cholecalciferol (Vitamin D3) [Vitamin D -] 5,000 unit PO WEEKLY 01/02/17 Febuxostat [Uloric] 40 mg PO DAILY 01/02/17 Furosemide [Lasix] 20 mg PO DAILY 01/02/17 Gabapentin 300 mg PO DAILY 01/02/17 Glimepiride [Amaryl] 2 mg PO DAILY 01/02/17 Lipitor 10 mg PO HS 01/02/17 Carvedilol [Coreg -] 3.125 mg PO BID 06/17/18 Budesonide/Formeterol Fumarate [SYMBICORT 160/4.5mcg -] 2 puff IH BID #1 inhaler 06/21/18 Family Disease History - Family Disease History Family Disease History: Diabetes: Mother ( age 87), Heart Disease: Father ( lived in his 90s) Physical Exam-Neuro Vital Signs: Vital Signs Temperature 98.6 F 07/01/18 15:00 Pulse Rate 84 07/01/18 15:00 Respiratory Rate 18 07/01/18 15:00 Blood Pressure 102/66 07/01/18 15:00 O2 Sat by Pulse Oximetry (%) 100 07/01/18 06:33 Constitutional: Yes: Thin, Other (tinge of jaundice ) Labs: CBC, BMP 07/01/18 07:35 07/01/18 07:35 INR, PTT INR 1.64 (0.83-1.09) H 06/30/18 21:30 - Neuro Exam Level Of Consciousness: Yes: Obtunded (awakens easily, but distracted and not aware of year; + place, name; EOMI, no facial, mild tremor, no asterixis, no focal weakness, reflex trace, F to N intact ) Imaging - Results Cat Scan: Report Reviewed, Image Reviewed Problem List - Problems (1) Elevated transaminase level Code(s): R74.0 - NONSPEC ELEV OF LEVELS OF TRANSAMNS & LACTIC ACID DEHYDRGNSE (2) ELLIOTT (acute kidney injury) Code(s): N17.9 - ACUTE KIDNEY FAILURE, UNSPECIFIED (3) Hypotension Code(s): I95.9 - HYPOTENSION, UNSPECIFIED Qualifiers: Hypotension type: unspecified hypotension type Qualified Code(s): I95.9 - Hypotension, unspecified (4) Weakness Code(s): R53.1 - WEAKNESS Assessment/Plan 77-year-old male with a history of hypertension, hyperlipidemia, left ventricular dysfunction/congestive heart failure, chronic kidney disease stage 4 , Coronary artery disease S/P stenting, GA S/P defibrillator placement, gout, diabetes, COPD Presented to the Hospital for worsening weakness and poor PO intake. 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 today , he denies any formal complaint besides being weak; no focal motor / sensory c/o . slight dyspnea during history taking. NO ETOH, smoking. NO WHITE . recent- echocardiogram: severe global hypokinesis and severe left ventricular dysfunction. CT HD : Sequential axial images were obtained from the base of the skull to the vertex. There is no evidence of acute intracranial hemorrhage, mass lesions or infarctions. There is a moderate degree of diffuse cerebral atrophy with sulcal widening and ventricular dilatation. IMPRESSION: No evidence of acute intracranial pathology. Labs : creatinine 26/lfts elevated/inc uric acid AP : suspect metabolic encephalopathy with generalized weakness, poor cardiac status likely contributory as well hepatic encephalopathy-- elevated LFTS, not baseline GI FU for transaminases/can check ammonia level agree to hold gabapentin , consider holding statin no focality to suggest cerebral ischemic event no evidence of seizures, meningitis etc Thanks for consultation DR MENDOZA
--- NOTE | 2018-07-01 17:34 | PN ---
Physical Exam: SUBJECTIVE: Patient seen and examined at bedside. no complaints. denies cp, sob , fever, n/v/d. OBJECTIVE: Vital Signs Period Temp Pulse Resp BP Sys/Robbins Pulse Ox Last 24 Hr 97.2 F-98.6 F 82-87 18-24 86-102/58-77 97-100 GENERAL: Awake, alert, and fully oriented, in no acute distress. HEAD: Normal with no signs of trauma. EYES: Pupils equal, round and reactive to light, extraocular movements intact EARS, NOSE, THROAT: Moist mucous membranes. LUNGS: CTAB HEART: RRR, no murmurs heard, defribilator in LUQ ABDOMEN: Soft, nontender, not distended, normoactive bowel sounds, no guarding, no rebound, no masses. LOWER EXTREMITIES: 2+ pulses, warm, well-perfused. No calf tenderness. No peripheral edema. NEUROLOGICAL: Cranial nerves II-XII intact. PSYCHIATRIC: Cooperative. Good eye contact. Appropriate mood and affect. SKIN: Warm, dry, normal turgor, no rashes or lesions noted, normal capillary refill. Laboratory Results - last 24 hr 06/30/18 06/30/18 06/30/18 21:30 21:30 21:30 WBC 5.9 RBC 4.27 Hgb 12.7 Hct 40.6 MCV 95.0 MCH 29.8 MCHC 31.4 L RDW 16.2 H Plt Count 153 D MPV 8.4 Absolute Neuts (auto) 4.0 Neutrophils % 66.7 D Lymphocytes % 23.5 D Monocytes % 8.4 Eosinophils % 1.0 Basophils % 0.4 Nucleated RBC % 0 PT with INR 19.40 H INR 1.64 H Sodium 135 L Potassium 4.7 Chloride 101 Carbon Dioxide 24 Anion Gap 10 BUN 93 H Creatinine 2.7 H Est GFR (CKD-EPI)AfAm 25.39 Est GFR (CKD-EPI)NonAf 21.90 POC Glucometer Random Glucose 160 H Uric Acid Calcium 8.6 Phosphorus Magnesium Total Bilirubin 1.7 H AST 152 H ALT 292 H Alkaline Phosphatase 75 Ammonia Creatine Kinase 160 Creatine Kinase Index 1.0 CK-MB (CK-2) 1.7 Troponin I 0.02 B-Natriuretic Peptide Total Protein 6.6 Albumin 3.3 L Vitamin B12 Serum Folate TSH Urine Color Urine Appearance Urine pH Ur Specific Foster Urine Protein Urine Glucose (UA) Urine Ketones Urine Blood Urine Nitrite Urine Bilirubin Urine Urobilinogen Ur Leukocyte Esterase 06/30/18 07/01/18 07/01/18 21:30 04:15 06:13 WBC RBC Hgb Hct MCV MCH MCHC RDW Plt Count MPV Absolute Neuts (auto) Neutrophils % Lymphocytes % Monocytes % Eosinophils % Basophils % Nucleated RBC % PT with INR INR Sodium Potassium Chloride Carbon Dioxide Anion Gap BUN Creatinine Est GFR (CKD-EPI)AfAm Est GFR (CKD-EPI)NonAf POC Glucometer 145 Random Glucose Uric Acid Calcium Phosphorus Magnesium Total Bilirubin AST ALT Alkaline Phosphatase Ammonia Creatine Kinase Creatine Kinase Index CK-MB (CK-2) Troponin I B-Natriuretic Peptide 74964.4 H Total Protein Albumin Vitamin B12 Serum Folate TSH Urine Color Yellow Urine Appearance Clear Urine pH 5.0 Ur Specific Foster 1.016 Urine Protein Negative Urine Glucose (UA) Negative Urine Ketones Negative Urine Blood Negative Urine Nitrite Negative Urine Bilirubin Negative Urine Urobilinogen 1.0 Ur Leukocyte Esterase Negative 07/01/18 07/01/18 07/01/18 07:35 07:35 11:25 WBC 6.0 RBC 4.47 Hgb 13.3 Hct 42.1 MCV 94.2 MCH 29.7 MCHC 31.5 L RDW 16.0 H Plt Count 181 MPV 8.4 Absolute Neuts (auto) Neutrophils % Lymphocytes % Monocytes % Eosinophils % Basophils % Nucleated RBC % PT with INR INR Sodium 136 Potassium 4.7 Chloride 103 Carbon Dioxide 21 Anion Gap 12 BUN 88 H Creatinine 2.6 H Est GFR (CKD-EPI)AfAm 26.57 Est GFR (CKD-EPI)NonAf 22.93 POC Glucometer Random Glucose 122 H Uric Acid 13.1 H* Calcium 8.9 Phosphorus 5.5 H Magnesium 2.8 H Total Bilirubin 2.2 H AST 134 H ALT 272 H Alkaline Phosphatase 78 Ammonia Creatine Kinase Creatine Kinase Index CK-MB (CK-2) Troponin I 0.02 B-Natriuretic Peptide Total Protein 6.8 Albumin 3.5 Vitamin B12 > 6000 H Serum Folate 18 H TSH 5.07 H D Urine Color Urine Appearance Urine pH Ur Specific Foster Urine Protein Urine Glucose (UA) Urine Ketones Urine Blood Urine Nitrite Urine Bilirubin Urine Urobilinogen Ur Leukocyte Esterase 07/01/18 07/01/18 07/01/18 12:27 14:30 16:45 WBC RBC Hgb Hct MCV MCH MCHC RDW Plt Count MPV Absolute Neuts (auto) Neutrophils % Lymphocytes % Monocytes % Eosinophils % Basophils % Nucleated RBC % PT with INR INR Sodium Potassium Chloride Carbon Dioxide Anion Gap BUN Creatinine Est GFR (CKD-EPI)AfAm Est GFR (CKD-EPI)NonAf POC Glucometer 122 164 Random Glucose Uric Acid Calcium Phosphorus Magnesium Total Bilirubin AST ALT Alkaline Phosphatase Ammonia 21.00 Creatine Kinase Creatine Kinase Index CK-MB (CK-2) Troponin I B-Natriuretic Peptide Total Protein Albumin Vitamin B12 Serum Folate TSH Urine Color Urine Appearance Urine pH Ur Specific Foster Urine Protein Urine Glucose (UA) Urine Ketones Urine Blood Urine Nitrite Urine Bilirubin Urine Urobilinogen Ur Leukocyte Esterase Active Medications Generic Name Dose Route Start Last Admin Trade Name Freq PRN Reason Stop Dose Admin Aspirin 81 mg 07/01/18 10:00 07/01/18 11:24 Asa - PO 81 mg DAILY [facility] Administration Atorvastatin Calcium 10 mg 07/01/18 22:00 Lipitor - PO HS [facility] Budesonide/Formoterol Fumarate 2 puff 07/01/18 10:00 07/01/18 15:54 Symbicort 160/4.5mcg - IH 2 puff BID [facility] Administration Carvedilol 3.125 mg 07/01/18 10:00 07/01/18 11:25 Coreg - PO 3.125 mg BID [facility] Administration Cholecalciferol 5,000 unit 07/01/18 01:30 Vitamin D3 - PO WEEKLY [facility] Febuxostat 40 mg 07/01/18 12:00 07/01/18 13:16 Uloric - PO 40 mg DAILY [facility] Administration Insulin Aspart 1 vial 07/01/18 07:00 07/01/18 16:50 Novolog Vial Sliding Scale - SQ 2 units ACHS [facility] Administration Protocol ASSESSMENT/PLAN: 77 y/o male with a history of HTN, HLD, LV dysfunction/CHF, CKD 4, CAD s/p stents, [place] s/p defribilator, gout, DM, COPD due to smoking history?, who presented from Dr. Hood office with Weakness, poor PO intake, hypotension and found to have increasing confusion and ELLIOTT. #Metabolic encephalopathy acute vs chronic, likely chronic/dementia, associated w/ Hypotension, Weakness, confusion, poor PO intake: likely 2/2 aggressive diuresis 2/2 continued use of Lasix, There appears to have been a miscommunication between what auto hiker recommended and what the daughter gave. It appears as though the daughter continued to give the Lasix even though the patient was not supposed to be doing so -EKG shows ventricularly paced rhythm with prolonged AV conduction, biventricular pacemaker -Patient appeared to be Volume contracted with an elevated BUN and creatinine -BNP 11285 at baseline -UA neg, check urine culture -hold ACEi and diuretics for now -gentle IVF hydration with NS at 30cc per hour x 24 hours and encourage PO hydration urine studies, no indication for renal imaging at this time -Dr. Connolly consulted -f/u Vit B12, Folic acid, RPR for worsening confusion -Consulted Neurology -CT head w/o acute changes #Acute Transaminitis: Unclear etiology Given the information that we have, could be a result of hypotension in the setting of volume depletion. The patient is not on any significant hepatotoxic medications -f/u hepatitis panel -Ultrasound of the RUQ showed fatty infiltration of the liver -Will trend of the liver function tests, if continues to stay elevated will consider an MRCP #ELLIOTT on CKD 2/2 volume depletion: The patient has a reported history of CKD stage 4. baseline Cr is ~2 -Will obtain a UA -Continue to monitor electrolytes in the morning -monitor BMP #CHF with Severe LV dysfunction: not likely an acute issue -Echocardiogram was recently done about a week ago, Doubt there is a need at the present moment to repeat -EKG was essentially unchanged since prior -If necessary would reconsult cardiology, however at present there is not an indication to do so -continue ASA -continue carvedilol # Hx of gout with elevated Uric acid - no signs of gout resume home febuxostat #elevated TSH, and FT4, - as per reinforcing bar setter most likely sick euthyroid. -will follow with as an outpatient, for further w/u #DM: chronic -hold diabetic meds -ISS -BGM ACHS #CAD: chronic -continue ASA #FEN -NS at 30cc per hour x 24 hours and encourage PO hydration -replete prn -diabetic/sodium diet #Prophylaxis -SQH tid #Dispo -med surg Visit type - Emergency Visit Emergency Visit: Yes ED Registration Date: 07/01/18 Care time: The patient presented to the Emergency Department on the above date and was hospitalized for further evaluation of their emergent condition. - New Patient This patient is new to me today: Yes Date on this admission: 07/01/18 - Critical Care Critical Care patient: No
[2018-07-01 19:42] LABS: EPI CELLS 0.7 /HPF (0-5/HPF); HYALINE CASTS 1 /lpf (0-8); URINE APPEARANCE CLEAR; URINE BACTERIA 5.2 /hpf (NEGATIVE); URINE BILIRUBIN NEGATIVE (NEGATIVE); URINE COLOR YELLOW; URINE GLUCOSE (UA) NEGATIVE (NEGATIVE); URINE KETONE NEGATIVE (NEGATIVE); URINE LEUK ESTERASE TRACE (NEGATIVE); URINE NITRITE NEGATIVE (NEGATIVE); URINE PROTEIN NEGATIVE (NEGATIVE); URINE RBC 2 /hpf (0-4); URINE WBC 1 /hpf (0-5)
[2018-07-01] MEDS ORDERED: INSULIN (NOVOLOG) ASPART 100 UNITS/ML 10ML VIAL ONE (20:59)
[2018-07-01] MEDS: ATORVASTATIN CA 10 MG TABLET (FP) PO SCH (21:23)
[2018-07-01] MEDS: HEPARIN NA (PORCINE) 5,000 UNITS/ML 1ML VIAL SQ SCH (21:24)
[2018-07-02] MEDS: HEPARIN NA (PORCINE) 5,000 UNITS/ML 1ML VIAL SQ SCH ×3 (05:56→22:04)
[2018-07-02] MEDS: INSULIN SLIDING SCALE (NOVOLOG) 1 VIAL SQ SCH ×4 (06:00→22:30)
[2018-07-02 08:04] LABS: BASO % 0.2 % (0-2.0); HEMATOCRIT 41.6 % (35.4-49); HEMOGLOBIN 13.2 GM/dL (11.7-16.9); LYMPH % 34.7 % (8-40); MCH 29.7 pg (25.7-33.7); MCHC 31.6 g/dl (32.0-35.9); MEAN PLT VOLUME 8.2 fl (7.5-11.1); MONO % 7.6 % (3.8-10.2); NEUT % 55.5 % (42.8-82.8); PLATELET COUNT 153 K/MM3 (134-434); RBC 4.42 M/mm3 (4.00-5.60); RDW 15.8 % (11.9-15.9)
[2018-07-02 08:16] LABS: ALBUMIN 3.1 g/dl (3.4-5.0); BILIRUBIN,TOTAL 2.4 mg/dL (0.2-1); CALCIUM 8.7 mg/dL (8.5-10.1); CREATININE 2.4 mg/dL (0.55-1.3); PHOSPHOROUS 5.2 mg/dL (2.5-4.9); TOT PROT 6.1 g/dl (6.4-8.2)
[2018-07-02] MEDS ORDERED: SODIUM POLYSTYRENE SULFONATE 15 GM/60 ML BOTTLE PO ONE (08:21)
[2018-07-02] MEDS: ASPIRIN 81 MG CHEWABLE TABLETS PO SCH (10:16)
[2018-07-02] MEDS: CARVEDILOL 3.125 MG TABLET (FP) PO SCH ×2 (10:16→22:04)
[2018-07-02] MEDS: BUDESONIDE/FORMETEROL FUMARATE 160/4.5 mcg INHALER IH SCH ×2 (10:16→22:31)
[2018-07-02] MEDS ORDERED: SODIUM CHLORIDE 1,000 ML IV SCH (10:30)
[2018-07-02] MEDS ORDERED: PT OWN MED DRAWER 7, Y5N ONE (10:50)
--- NOTE | 2018-07-02 11:13 | PN ---
Physical Exam: SUBJECTIVE: Patient seen and examined at bedside. no complaints. denies cp, sob , fever, n/v/d. OBJECTIVE: Vital Signs Period Temp Pulse Resp BP Sys/Robbins Pulse Ox Last 24 Hr 97.5 F-98.6 F 68-90 18-18 90-110/58-78 100 GENERAL:AOX2-3, in no acute distress. HEAD: Normal with no signs of trauma. EYES: Pupils equal, round and reactive to light, extraocular movements intact EARS, NOSE, THROAT: Moist mucous membranes. LUNGS: CTAB HEART: RRR, no murmurs heard, defribilator in LUQ ABDOMEN: Soft, nontender, not distended, normoactive bowel sounds, no guarding, no rebound, no masses. LOWER EXTREMITIES: 2+ pulses, warm, well-perfused. No calf tenderness. No peripheral edema. NEUROLOGICAL: Cranial nerves II-XII intact. PSYCHIATRIC: Cooperative. Good eye contact. Appropriate mood and affect. SKIN: Warm, dry, normal turgor, no rashes or lesions noted, normal capillary refill. Laboratory Results - last 24 hr 07/01/18 07/01/18 07/01/18 11:25 12:27 14:30 WBC RBC Hgb Hct MCV MCH MCHC RDW Plt Count MPV Absolute Neuts (auto) Neutrophils % Lymphocytes % Monocytes % Eosinophils % Basophils % Nucleated RBC % Sodium Potassium Chloride Carbon Dioxide Anion Gap BUN Creatinine Est GFR (CKD-EPI)AfAm Est GFR (CKD-EPI)NonAf POC Glucometer 122 Random Glucose Calcium Phosphorus Magnesium Total Bilirubin AST ALT Alkaline Phosphatase Ammonia 21.00 Troponin I 0.02 Total Protein Albumin Vitamin B12 > 6000 H Serum Folate 18 H Urine Color Urine Appearance Urine pH Ur Specific [place] Urine Protein Urine Glucose (UA) Urine Ketones Urine Blood Urine Nitrite Urine Bilirubin Urine Urobilinogen Ur Leukocyte Esterase Urine WBC (Auto) Urine RBC (Auto) Urine Casts (Auto) U Epithel Cells (Auto) Urine Bacteria (Auto) Ur Random Creatinine U Random Total Protein Ur Random Sodium Ur Random Urea Nitrogn RPR Titer 07/01/18 07/01/18 07/01/18 14:30 16:45 18:00 WBC RBC Hgb Hct MCV MCH MCHC RDW Plt Count MPV Absolute Neuts (auto) Neutrophils % Lymphocytes % Monocytes % Eosinophils % Basophils % Nucleated RBC % Sodium Potassium Chloride Carbon Dioxide Anion Gap BUN Creatinine Est GFR (CKD-EPI)AfAm Est GFR (CKD-EPI)NonAf POC Glucometer 164 Random Glucose Calcium Phosphorus Magnesium Total Bilirubin AST ALT Alkaline Phosphatase Ammonia Troponin I Total Protein Albumin Vitamin B12 Serum Folate Urine Color Urine Appearance Urine pH Ur Specific [place] Urine Protein Urine Glucose (UA) Urine Ketones Urine Blood Urine Nitrite Urine Bilirubin Urine Urobilinogen Ur Leukocyte Esterase Urine WBC (Auto) Urine RBC (Auto) Urine Casts (Auto) U Epithel Cells (Auto) Urine Bacteria (Auto) Ur Random Creatinine 85.0 U Random Total Protein 12.2 H Ur Random Sodium 29 L Ur Random Urea Nitrogn 1111 H RPR Titer Nonreactive 07/01/18 07/01/18 07/01/18 18:00 18:00 18:00 WBC RBC Hgb Hct MCV MCH MCHC RDW Plt Count MPV Absolute Neuts (auto) Neutrophils % Lymphocytes % Monocytes % Eosinophils % Basophils % Nucleated RBC % Sodium Potassium Chloride Carbon Dioxide Anion Gap BUN Creatinine Est GFR (CKD-EPI)AfAm Est GFR (CKD-EPI)NonAf POC Glucometer Random Glucose Calcium Phosphorus Magnesium Total Bilirubin AST ALT Alkaline Phosphatase Ammonia Troponin I Total Protein Albumin Vitamin B12 Serum Folate Urine Color Urine Appearance Urine pH Ur Specific [place] Urine Protein Urine Glucose (UA) Urine Ketones Urine Blood Urine Nitrite Urine Bilirubin Urine Urobilinogen Ur Leukocyte Esterase Urine WBC (Auto) Urine RBC (Auto) Urine Casts (Auto) U Epithel Cells (Auto) Urine Bacteria (Auto) Ur Random Creatinine U Random Total Protein Cancelled Ur Random Sodium Cancelled Ur Random Urea Nitrogn Cancelled RPR Titer 07/01/18 07/01/18 07/02/18 18:00 21:26 05:55 WBC RBC Hgb Hct MCV MCH MCHC RDW Plt Count MPV Absolute Neuts (auto) Neutrophils % Lymphocytes % Monocytes % Eosinophils % Basophils % Nucleated RBC % Sodium Potassium Chloride Carbon Dioxide Anion Gap BUN Creatinine Est GFR (CKD-EPI)AfAm Est GFR (CKD-EPI)NonAf POC Glucometer 118 100 Random Glucose Calcium Phosphorus Magnesium Total Bilirubin AST ALT Alkaline Phosphatase Ammonia Troponin I Total Protein Albumin Vitamin B12 Serum Folate Urine Color Yellow Urine Appearance Clear Urine pH 5.0 Ur Specific [place] 1.016 Urine Protein Negative Urine Glucose (UA) Negative Urine Ketones Negative Urine Blood Negative Urine Nitrite Negative Urine Bilirubin Negative Urine Urobilinogen 1.0 Ur Leukocyte Esterase Trace Urine WBC (Auto) 1 Urine RBC (Auto) 2 Urine Casts (Auto) 1 U Epithel Cells (Auto) 0.7 Urine Bacteria (Auto) 5.2 Ur Random Creatinine U Random Total Protein Ur Random Sodium Ur Random Urea Nitrogn RPR Titer 07/02/18 07/02/18 07/02/18 06:30 06:30 10:59 WBC 6.0 RBC 4.42 Hgb 13.2 Hct 41.6 MCV 94.0 MCH 29.7 MCHC 31.6 L RDW 15.8 Plt Count 153 MPV 8.2 Absolute Neuts (auto) 3.3 Neutrophils % 55.5 Lymphocytes % 34.7 D Monocytes % 7.6 Eosinophils % 2.0 D Basophils % 0.2 Nucleated RBC % 1 H Sodium 136 Potassium 5.0 Chloride 107 Carbon Dioxide 16 L Anion Gap 14 BUN 85 H Creatinine 2.4 H Est GFR (CKD-EPI)AfAm 29.27 Est GFR (CKD-EPI)NonAf 25.26 POC Glucometer 68 Random Glucose 82 Calcium 8.7 Phosphorus 5.2 H Magnesium 3.0 H Total Bilirubin 2.4 H AST 104 H ALT 214 H Alkaline Phosphatase 71 Ammonia Troponin I Total Protein 6.1 L Albumin 3.1 L Vitamin B12 Serum Folate Urine Color Urine Appearance Urine pH Ur Specific [place] Urine Protein Urine Glucose (UA) Urine Ketones Urine Blood Urine Nitrite Urine Bilirubin Urine Urobilinogen Ur Leukocyte Esterase Urine WBC (Auto) Urine RBC (Auto) Urine Casts (Auto) U Epithel Cells (Auto) Urine Bacteria (Auto) Ur Random Creatinine U Random Total Protein Ur Random Sodium Ur Random Urea Nitrogn RPR Titer Active Medications Generic Name Dose Route Start Last Admin Trade Name Jourdanq PRN Reason Stop Dose Admin Aspirin 81 mg 07/01/18 10:00 07/02/18 10:16 Asa - PO 81 mg DAILY [facility] Administration Atorvastatin Calcium 10 mg 07/01/18 22:00 07/01/18 21:23 Lipitor - PO 10 mg HS [facility] Administration Budesonide/Formoterol Fumarate 2 puff 07/01/18 10:00 07/02/18 10:16 Symbicort 160/4.5mcg - IH 2 puff BID [facility] Administration Carvedilol 3.125 mg 07/01/18 10:00 07/02/18 10:16 Coreg - PO 3.125 mg BID [facility] Administration Cholecalciferol 5,000 unit 07/01/18 01:30 Vitamin D3 - PO WEEKLY [facility] Febuxostat 40 mg 07/01/18 12:00 07/01/18 13:16 Uloric - PO 40 mg DAILY [facility] Administration Heparin Sodium (Porcine) 5,000 unit 07/01/18 22:00 07/02/18 05:56 Heparin - SQ 5,000 unit TID [facility] Administration Sodium Chloride 1,000 mls @ 30 mls/hr 07/02/18 10:30 Normal Saline - IV ASDIR [facility] Insulin Aspart 1 vial 07/01/18 07:00 07/02/18 11:01 Novolog Vial Sliding Scale - SQ Not Given ACHS [facility] Protocol [id number] US/ABDOMEN US -LIMITED Right upper quadrant pain. Elevated liver function tests Right upper abdomen ultrasound. The liver is within normal limits in size measuring 16 cm in sagittal length with a slightly to moderately dense echotexture. Status post cholecystectomy. No intra or extrahepatic bile duct dilatation is seen. The right kidney measures 9 cm sagittal length and appears unremarkable. Visualized portion of the pancreas appears unremarkable Visualized portion of the proximal abdominal aorta and inferior vena cava appear unremarkable. Normal flow in the main portal vein. IMPRESSION: Status post cholecystectomy. Fatty infiltration of the liver versus hepatocellular disease. Please correlate with liver enzymes. Reported By: Dallas Dutta MD 07/01/18 0842 ASSESSMENT/PLAN: 77 y/o M PMH HTN, HLD, LV dysfunction/CHF, CKD 4, CAD s/p stents, [place] s/p defribilator, gout, DM, COPD due to smoking history?, who presented from Dr. Hood office with Weakness, poor PO intake, hypotension and found to have increasing confusion and ELLIOTT. #Metabolic encephalopathy acute vs suspected chronic worsening dementia, associated w/ Hypotension, Weakness, poor PO intake: Hypotension, Weakness also likely 2/2 aggressive diuresis 2/2 continued use of Lasix, There appears to have been a miscommunication between what sole tacker recommended and what the daughter gave. It appears as though the daughter continued to give the Lasix even though the patient was not supposed to be doing so. daughter has been concerned for a while about her father having dementia, on last admission pt was referred to Dr Munoz for an outpt dementia eval -EKG shows ventricularly paced rhythm with prolonged AV conduction, biventricular pacemaker -Patient appeared to be Volume contracted with an elevated BUN and creatinine 93 /2.7, now improving w/ IVF 85/2.4, will chk orthostatics -BNP [id number] at baseline -UA neg, check urine culture -hold ACEi and diuretics for now -gentle IVF hydration with NS at 30cc per hour x 24 hours and encourage PO hydration -urine studies, no indication for renal imaging at this time -Dr. Connolly consulted -Vit B12, Folic acid elevated -RPR neg -Consulted Neurology, Tammy -CT head w/o acute changes #ELLIOTT on CKD stage4 2/2 volume depletion: BUN and creatinine 93/2.7, now improving w/ IVF 85/2.4. baseline Cr is ~2. -UA neg -monitor BMP -f/u urine studies -hold ACEi and diuretics for now -c/w IVF #CHF with Severe LV dysfunction: not likely an acute issue -Echo was recently done about a week ago, Doubt there is a need at the present moment to repeat -EKG was essentially unchanged since prior -cardio consult, Evy for optimization of HF meds, pt noted here w/ low BP 90/58 -continue ASA, carvedilol #Acute Transaminitis: Unclear etiology Given the information that we have, could be a result of hypotension in the setting of volume depletion. The patient is not on any significant hepatotoxic medications. improving w/ IVF -f/u hepatitis panel -Ultrasound of the RUQ showed fatty infiltration of the liver -will hold lipitor until resolves -con to trend LFTs, if continues to stay elevated will consider an MRCP # Hx of gout with elevated Uric acid - no signs of gout c/w home febuxostat #elevated TSH, and FT4, - as per klystrom tube tester most likely sick euthyroid. -will follow with as an outpatient, for further w/u #DM: chronic -hold diabetic meds -ISS -BGM ACHS #CAD: chronic -continue ASA #FEN -NS at 30cc per hour x 24 hours and encourage PO hydration -replete prn -diabetic/sodium diet #Prophylaxis -SQH tid #Dispo -med surg Visit type - Emergency Visit Emergency Visit: Yes ED Registration Date: 07/01/18 Care time: The patient presented to the Emergency Department on the above date and was hospitalized for further evaluation of their emergent condition. - New Patient This patient is new to me today: Yes Date on this admission: 07/02/18 - Critical Care Critical Care patient: No
[2018-07-02] MEDS: FEBUXOSTAT 40 MG TAB PO SCH (11:20)
--- NOTE | 2018-07-02 13:52 | PN ---
Progress Note (short form) - Note Progress Note: Renal follow up for ELLIOTT Pt seen and examined at the bedside awake and alert no acute complaints no sob, cp, abd pain, N/V/D Vital Signs Temperature 97.6 F 07/02/18 06:00 Pulse Rate 68 07/02/18 06:00 Respiratory Rate 18 07/02/18 06:00 Blood Pressure 90/58 L 07/02/18 06:00 O2 Sat by Pulse Oximetry (%) 100 07/01/18 21:00 Intake & Output 06/29/18 06/30/18 07/01/18 07/02/18 23:59 23:59 23:59 23:59 Intake Total 240 480 Output Total 600 Balance -360 480 Weight 83.915 kg 87.679 kg NAD Neck supple, no JVD RRR, no M/R CTA, no rales soft NT/ND no LE edmea, clubbing or cyanosis no bladder distension CBC, BMP 07/02/18 06:30 07/02/18 06:30 Laboratory Tests 06/17/18 07/01/18 07/01/18 05:30 07:35 11:25 Est GFR (CKD-EPI)AfAm 27.86 Calcium 8.8 Phosphorus Magnesium Total Bilirubin 1.6 H AST ALT Ammonia Albumin 3.3 L Vitamin B12 > 6000 H Serum Folate 18 H TSH 5.07 H D 07/01/18 07/02/18 14:30 06:30 Est GFR (CKD-EPI)AfAm Calcium 8.7 Phosphorus 5.2 H Magnesium 3.0 H Total Bilirubin AST 104 H ALT 214 H Ammonia 21.00 Albumin 3.1 L Vitamin B12 Serum Folate TSH Current Medications Aspirin (Asa -) 81 mg PO DAILY [facility] Last Admin: 07/02/18 10:16 Dose: 81 mg Atorvastatin Calcium (Lipitor -) 10 mg PO HS [facility] Last Admin: 07/01/18 21:23 Dose: 10 mg Budesonide/Formoterol Fumarate (Symbicort 160/4.5mcg -) 2 puff IH BID [facility] Last Admin: 07/02/18 10:16 Dose: 2 puff Carvedilol (Coreg -) 3.125 mg PO BID [facility] Last Admin: 07/02/18 10:16 Dose: 3.125 mg Cholecalciferol (Vitamin D3 -) 5,000 unit PO WEEKLY [facility] Febuxostat (Uloric -) 40 mg PO DAILY [facility] Last Admin: 07/02/18 11:20 Dose: 40 mg Heparin Sodium (Porcine) (Heparin -) 5,000 unit SQ TID [facility] Last Admin: 07/02/18 05:56 Dose: 5,000 unit Sodium Chloride (Normal Saline -) 1,000 mls @ 30 mls/hr IV ASDIR [facility] Last Admin: 07/02/18 11:21 Dose: 30 mls/hr Insulin Aspart (Novolog Vial Sliding Scale -) 1 vial SQ ACHS [facility]; Protocol Last Admin: 07/02/18 11:01 Dose: Not Given 77 year old gentleman with hx of CKD stage 3 (baseline Cr 1.8-2), CAD s/p PCI, CHF with very low LVEF, hyperlipidemia, hypertension, AICD placement, DM, COPD who presented from Dr. Connolly s office with hypotension and found to have increasing confusion and ELLIOTT. #ELLIOTT on CKD due to volume depletion #Hypotension #Altered mental status r/o dementia vs. other cause #DM #Hypertension #CHF Renal function remains unchanged FeUrea was 38.5% indicating slight tubular dysfunction continue gentle IVF hydration check ABG given low serum bicarb also want to r/o hypercarbia given confusion hold ACEi and diuretics for now Vit B12, folic acid WNL RPR non-reactive TSH slightly elevated check urine culture neurology consultation appreciated CT head w/o acute changes continue insulin sliding scale Thank you Will follow Mikhail Ling DO
--- NOTE | 2018-07-02 14:06 | PN ---
Teaching Attending Note Name of Resident: Elmo Wheeler ATTENDING PHYSICIAN STATEMENT I saw and evaluated the patient. I reviewed the resident's note and discussed the case with the resident. I agree with the resident's findings and plan as documented. SUBJECTIVE: Patient is feeling better, no acute distress. OBJECTIVE: Vital Signs Temperature 97.6 F 07/02/18 06:00 Pulse Rate 68 07/02/18 06:00 Respiratory Rate 18 07/02/18 06:00 Blood Pressure 90/58 L 07/02/18 06:00 O2 Sat by Pulse Oximetry (%) 100 07/01/18 21:00 GENERAL: The patient is awake, alert, and fully oriented, in no acute distress. HEAD: Normal with no signs of trauma. EYES: PERRL, extraocular movements intact, sclera anicteric, conjunctiva clear. ENT: Ears normal, oropharynx clear without exudates, moist mucous membranes. NECK: Trachea midline, full range of motion, supple. LUNGS: decreased BS BL, no wheezes, no crackles, no accessory muscle use. HEART: Regular rate and rhythm, S1, S2 without murmur, rub or gallop. ABDOMEN: Soft, nontender, nondistended, normoactive bowel sounds, no guarding, no rebound, no hepatosplenomegaly, no masses. EXTREMITIES: 2+ pulses, warm, well-perfused, no edema. NEUROLOGICAL: Cranial nerves II through XII grossly intact. Normal speech, gait not observed. PSYCH: Normal mood, normal affect. SKIN: Warm, dry, normal turgor, no rashes or lesions noted CBCD WBC 6.0 K/mm3 (4.0-10.0) 07/02/18 06:30 RBC 4.42 M/mm3 (4.00-5.60) 07/02/18 06:30 Hgb 13.2 GM/dL (11.7-16.9) 07/02/18 06:30 Hct 41.6 % (35.4-49) 07/02/18 06:30 MCV 94.0 fl (80-96) 07/02/18 06:30 MCHC 31.6 g/dl (32.0-35.9) L 07/02/18 06:30 RDW 15.8 % (11.9-15.9) 07/02/18 06:30 Plt Count 153 K/MM3 (134-434) 07/02/18 06:30 MPV 8.2 fl (7.5-11.1) 07/02/18 06:30 CMP Sodium 136 mmol/L (136-145) 07/02/18 06:30 Potassium 5.0 mmol/L (3.5-5.1) 07/02/18 06:30 Chloride 107 mmol/L (98-107) 07/02/18 06:30 Carbon Dioxide 16 mmol/L (21-32) L 07/02/18 06:30 Anion Gap 14 MMOL/L (8-16) 07/02/18 06:30 BUN 85 mg/dL (7-18) H 07/02/18 06:30 Creatinine 2.4 mg/dL (0.55-1.3) H 07/02/18 06:30 Random Glucose 82 mg/dL (74-106) 07/02/18 06:30 Calcium 8.7 mg/dL (8.5-10.1) 07/02/18 06:30 Total Bilirubin 2.4 mg/dL (0.2-1) H 07/02/18 06:30 AST 104 U/L (15-37) H 07/02/18 06:30 ALT 214 U/L (13-61) H 07/02/18 06:30 Alkaline Phosphatase 71 U/L (45-117) 07/02/18 06:30 Total Protein 6.1 g/dl (6.4-8.2) L 07/02/18 06:30 Albumin 3.1 g/dl (3.4-5.0) L 07/02/18 06:30 CARDIAC ENZYMES Creatine Kinase 160 U/L (26-308) 06/30/18 21:30 Troponin I 0.02 ng/ml (0.00-0.05) 07/01/18 11:25 Current Medications Generic Name Dose Route Start Last Admin Trade Name Jourdanq PRN Reason Stop Dose Admin Aspirin 81 mg 07/01/18 10:00 07/02/18 10:16 Asa - PO 81 mg DAILY [facility] Administration Atorvastatin Calcium 10 mg 07/01/18 22:00 07/01/18 21:23 Lipitor - PO 10 mg HS [facility] Administration Budesonide/Formoterol Fumarate 2 puff 07/01/18 10:00 07/02/18 10:16 Symbicort 160/4.5mcg - IH 2 puff BID [facility] Administration Carvedilol 3.125 mg 07/01/18 10:00 07/02/18 10:16 Coreg - PO 3.125 mg BID [facility] Administration Cholecalciferol 5,000 unit 07/01/18 01:30 Vitamin D3 - PO WEEKLY [facility] Febuxostat 40 mg 07/01/18 12:00 07/02/18 11:20 Uloric - PO 40 mg DAILY [facility] Administration Heparin Sodium (Porcine) 5,000 unit 07/01/18 22:00 07/02/18 05:56 Heparin - SQ 5,000 unit TID [facility] Administration Sodium Chloride 1,000 mls @ 30 mls/hr 07/02/18 10:30 07/02/18 11:21 Normal Saline - IV 30 mls/hr ASDIR [facility] Administration Insulin Aspart 1 vial 07/01/18 07:00 07/02/18 11:01 Novolog Vial Sliding Scale - SQ Not Given ACHS [facility] Protocol Home Medications Medication Instructions Recorded Lipitor 10 mg PO HS 01/02/17 RX: Aspirin [ASA -] 81 mg PO DAILY 01/02/17 RX: Cholecalciferol (Vitamin D3) 5,000 unit PO WEEKLY 01/02/17 [Vitamin D -] RX: Febuxostat [Uloric] 40 mg PO DAILY 01/02/17 RX: Gabapentin 300 mg PO DAILY 01/02/17 RX: Glimepiride [Amaryl] 2 mg PO DAILY 01/02/17 RX: Carvedilol [Coreg -] 3.125 mg PO BID 06/17/18 RX: Budesonide/Formeterol Fumarate 2 puff IH BID #1 inhaler 06/21/18 [SYMBICORT 160/4.5mcg -] An echocardiogram done a week ago showed severe global hypokinesis and severe left ventricular dysfunction. EJF 15-20% ASSESSMENT AND PLAN: Patient is a 77yo male with PMHx of hypertension, hyperlipidemia, left ventricular dysfunction/congestive heart failure, chronic kidney disease stage 4 , Coronary artery disease s/p stenting, [place] S/P defibrillator placement, gout, diabetes, COPD , presented to ED. for having worsening generalized weakness and poor oral intake. Also was found to be hypotensive at his doctor's office , was sent to the emergency room for further evaluation . # Acute generalized weakness: most likely due to having low Blood pressure , will need to adjust his BP meds and most likely will benefit for Entersto, but need to monitor his creatinine. # Hx of copd continue home meds. #ELLIOTT on CKD; Baselin is 1.8-->2.0--> 2.6 today , nephro consulted dr Ling , hold lasix and vasotec ## Hx of gout with elevated Uric acid #elevated T bili with LFTs most likely due to having liver congestion due to elevated BNP : most likely due to liver congestion/fatty infiltration. improving is 1.6 today. #Hx of [place] s/p stent. #elevated TSH, and FT4, as per counter control operator most likely sick euthyroid. Follow with as an outpatient, for further w/u #DM ss with coverage DVT Px: HEparin sq
--- NOTE | 2018-07-02 14:08 | CON.CARD ---
Consult Consult Specialty:: Cardiology - History of Present Illness History of Present Illness: The patient is a 77YOM with a PMH of HTN, HLD, CKD, CAD s/p stents, SD s/p defibrillator, gout, COPD, hypothyroidism, and CHF who presents to the ER sent in by Dr. Connolly with generalized weakness, poor appetite, and after becoming hypotensive while in his office. Patient has had two recent admissions for dyspnea on exertion to rule out PE in this ED. Patient has been followed up by a operations officer afloat. Denies fever, chills, cp, N/V/C/D or urinary symptoms. Allergies: NKDA Social Hx: Former smoker. Denies drug or alcohol use. PCP: Dr. Holden Renal: Dr. Yane Connolly PMH PMH of SD (?x 2), severe systolic LV dsyfunction with ICD placed ?2 yrs ago, HTN , HLD, CAD s/p stents, renal dysfunction, COPD (quit cigarettes 10 yrs ago) unintentional weight loss, per family, and gout who presents to the ER with shortness of breath. He was recently discharged from [facility] after being admitted for ?"small SD and levated troponin." (per pt, he was there for two nights). - Past Medical History Cardio/Vascular: Yes: CAD, CHF, HTN, Hyperlipdemia, SD ("several years ago"), Pulmonary Hypertension, Other (defibrillator,s/p cardiac stent at [facility]) Pulmonary: Yes: COPD ("emphysema", per pt's daughter (Yeimi)) Gastrointestinal: Yes: Diverticulosis, Other (colon adenoma removed 02/19/16) Hepatobiliary: Yes: Cholelithiasis (s/p lap choly) Renal/: Yes: Renal Failure (chronic) Psych: Yes: Anxiety Rheumatology: Yes: Gout Endocrine: Yes: Diabetes Mellitus - Past Surgical History Past Surgical History: Yes: AICD, Cholecystectomy, Colonoscopy - Alcohol/Substance Use Hx Alcohol Use: No History of Substance Use: reports: None - Smoking History Smoking history: Former smoker Have you smoked in the past 12 months: No Aproximately how many cigarettes per day: 10 If you are a former smoker, when did you quit?: many years ago - Social History Usual Living Arrangement: Alone ADL: Independent 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 History of Recent Travel: No Home Medications - Allergies Allergies/Adverse Reactions: Allergies Allergy/AdvReac Type Severity Reaction Status Date / Time No Known Allergies Allergy Verified 06/30/18 20:31 - Home Medications Home Medications: Ambulatory Orders Aspirin [ASA -] 81 mg PO DAILY 01/02/17 Cholecalciferol (Vitamin D3) [Vitamin D -] 5,000 unit PO WEEKLY 01/02/17 Febuxostat [Uloric] 40 mg PO DAILY 01/02/17 Gabapentin 300 mg PO DAILY 01/02/17 Glimepiride [Amaryl] 2 mg PO DAILY 01/02/17 Lipitor 10 mg PO HS 01/02/17 Carvedilol [Coreg -] 3.125 mg PO BID 06/17/18 Budesonide/Formeterol Fumarate [SYMBICORT 160/4.5mcg -] 2 puff IH BID #1 inhaler 06/21/18 Family Disease History - Family Disease History Family Disease History: Diabetes: Mother ( age 87), Heart Disease: Father ( lived in his 90s) Review of Systems - Review of Systems Constitutional: reports: No Symptoms Eyes: reports: No Symptoms HENT: reports: No Symptoms Neck: reports: No Symptoms Cardiovascular: reports: No Symptoms Gastrointestinal: reports: No Symptoms Genitourinary: reports: No Symptoms Breasts: reports: No Symptoms Reported Musculoskeletal: reports: No Symptoms Integumentary: reports: No Symptoms Neurological: reports: No Symptoms Endocrine: reports: No Symptoms Hematology/Lymphatic: reports: No Symptoms Psychiatric: reports: No Symptoms Vital Signs: Vital Signs Temperature 97.6 F 07/02/18 06:00 Pulse Rate 68 07/02/18 06:00 Respiratory Rate 18 07/02/18 06:00 Blood Pressure 90/58 L 07/02/18 06:00 O2 Sat by Pulse Oximetry (%) 100 07/01/18 21:00 Constitutional: Yes: Well Nourished, No Distress, Calm Eyes: Yes: WNL, Conjunctiva Clear, EOM Intact HENT: Yes: WNL, Atraumatic, Normocephalic Neck: Yes: WNL, Supple, Trachea Midline Respiratory: Yes: WNL, Regular, CTA Bilaterally Gastrointestinal: Yes: WNL, Normal Bowel Sounds Renal/: Yes: WNL Cardiovascular: Yes: WNL, Regular Rate and Rhythm Musculoskeletal: Yes: WNL Extremities: Yes: WNL Edema: Yes Integumentary: Yes: WNL Neurological: Yes: WNL, Alert, Oriented ...Motor Strength: WNL Psychiatric: Yes: WNL, Alert, Oriented - Other Data Labs, Other Data: CBC, BMP 07/02/18 06:30 07/02/18 06:30 INR, PTT INR 1.64 (0.83-1.09) H 06/30/18 21:30 Imaging - Results Chest X-ray: Image Reviewed (no i/e) EKG: Image Reviewed (av sequential pacing) Problem List - Problems (1) ELLIOTT (acute kidney injury) Code(s): N17.9 - ACUTE KIDNEY FAILURE, UNSPECIFIED (2) Elevated transaminase level Code(s): R74.0 - NONSPEC ELEV OF LEVELS OF TRANSAMNS & LACTIC ACID DEHYDRGNSE (3) Hypotension Code(s): I95.9 - HYPOTENSION, UNSPECIFIED Qualifiers: Hypotension type: unspecified hypotension type Qualified Code(s): I95.9 - Hypotension, unspecified (4) Weakness Code(s): R53.1 - WEAKNESS (5) Acute on chronic renal insufficiency Code(s): N28.9 - DISORDER OF KIDNEY AND URETER, UNSPECIFIED; N18.9 - CHRONIC KIDNEY DISEASE, UNSPECIFIED (6) Anemia Code(s): D64.9 - ANEMIA, UNSPECIFIED Qualifiers: Anemia type: unspecified type Qualified Code(s): D64.9 - Anemia, unspecified (7) Atypical chest pain Code(s): R07.89 - OTHER CHEST PAIN (8) COPD (chronic obstructive pulmonary disease) Code(s): J44.9 - CHRONIC OBSTRUCTIVE PULMONARY DISEASE, UNSPECIFIED (9) Cardiac arrhythmia Code(s): I49.9 - CARDIAC ARRHYTHMIA, UNSPECIFIED (10) Chest wall pain Code(s): R07.89 - OTHER CHEST PAIN (11) Colonic adenoma Code(s): D12.6 - BENIGN NEOPLASM OF COLON, UNSPECIFIED (12) Coronary arteriosclerosis Code(s): I25.10 - ATHSCL HEART DISEASE OF [place] CORONARY ARTERY W/O ANG PCTRS (13) DVT prophylaxis Code(s): [id number] - (14) Diabetes mellitus type 2 in obese Code(s): E11.9 - TYPE 2 DIABETES MELLITUS WITHOUT COMPLICATIONS; E66.9 - OBESITY , UNSPECIFIED (15) Dilated bile duct Code(s): K83.8 - OTHER SPECIFIED DISEASES OF BILIARY TRACT (16) Diverticulosis large intestine w/o perforation or abscess w/bleeding Code(s): K57.31 - DVRTCLOS OF LG INT W/O PERFORATION OR ABSCESS W BLEEDING (17) Dyspnea Code(s): R06.00 - DYSPNEA, UNSPECIFIED Qualifiers: Dyspnea type: unspecified Qualified Code(s): R06.00 - Dyspnea, unspecified (18) Elevated d-dimer Code(s): R79.89 - OTHER SPECIFIED ABNORMAL FINDINGS OF BLOOD CHEMISTRY (19) Full code status Code(s): Z78.9 - OTHER SPECIFIED HEALTH STATUS (20) Gout Code(s): M10.9 - GOUT, UNSPECIFIED (21) Gout attack Code(s): M10.9 - GOUT, UNSPECIFIED (22) History of heart artery stent Code(s): Z95.5 - PRESENCE OF CORONARY ANGIOPLASTY IMPLANT AND GRAFT (23) Hyperkalemia Code(s): E87.5 - HYPERKALEMIA (24) Hyperlipidemia Code(s): E78.5 - HYPERLIPIDEMIA, UNSPECIFIED (25) Hypertension Code(s): I10 - ESSENTIAL (PRIMARY) HYPERTENSION (26) Hypervolemia Code(s): E87.70 - FLUID OVERLOAD, UNSPECIFIED Qualifiers: Hypervolemia type: unspecified Qualified Code(s): E87.70 - Fluid overload, unspecified (28) ICD (implantable cardioverter-defibrillator) in place Code(s): Z95.810 - PRESENCE OF AUTOMATIC (IMPLANTABLE) CARDIAC DEFIBRILLATOR (29) Ileus Code(s): K56.7 - ILEUS, UNSPECIFIED (30) Insomnia Code(s): G47.00 - INSOMNIA, UNSPECIFIED (31) Jaundice Code(s): R17 - UNSPECIFIED JAUNDICE (32) Knee effusion, left Code(s): M25.462 - EFFUSION, LEFT KNEE (33) Left arm numbness Code(s): R20.0 - ANESTHESIA OF SKIN (34) Left upper quadrant pain Code(s): R10.12 - LEFT UPPER QUADRANT PAIN (35) Myocardial infarct Code(s): I21.9 - ACUTE MYOCARDIAL INFARCTION, UNSPECIFIED (36) Neck muscle strain Code(s): S16.1XXA - STRAIN OF MUSCLE, FASCIA AND TENDON AT NECK LEVEL, INIT (37) Neck pain Code(s): M54.2 - CERVICALGIA (38) Pacemaker complications Code(s): T82.9XXA - UNSP COMP OF CARDIAC AND VASCULAR PROSTH DEV/GRFT, INIT (39) Polyarthritis Code(s): M13.0 - POLYARTHRITIS, UNSPECIFIED (40) Renal dysfunction Code(s): N28.9 - DISORDER OF KIDNEY AND URETER, UNSPECIFIED (41) Renal insufficiency Code(s): N28.9 - DISORDER OF KIDNEY AND URETER, UNSPECIFIED (42) Severe left ventricular systolic dysfunction Code(s): I51.9 - HEART DISEASE, UNSPECIFIED (43) Shortness of breath Code(s): R06.02 - SHORTNESS OF BREATH (44) Systolic CHF Code(s): I50.20 - UNSPECIFIED SYSTOLIC (CONGESTIVE) HEART FAILURE (45) Weight loss, unintentional Code(s): R63.4 - ABNORMAL WEIGHT LOSS Assessment/Plan Problems (1) Renal dysfunction Assessment/Plan: f/u with runner on. Code(s): N28.9 - DISORDER OF KIDNEY AND URETER, UNSPECIFIED (2) ICD (implantable cardioverter-defibrillator) in place Code(s): Z95.810 - PRESENCE OF AUTOMATIC (IMPLANTABLE) CARDIAC DEFIBRILLATOR (3) Systolic CHF Assessment/Plan: Pt's daughter to bring his medication list today. He sees employment advisor ( ?Nyad: [place] [employer]), and recently had ICD interrogation he says was unremarkable. Markedly elevated BNP, but does not appear in volume overload (no JVD; lungs with good air entry; clear CXR). F/u BUN/Cr (elevated; hx renal dysfunction), Is and Os, daily wt, electrolytes. Code(s): I50.20 - UNSPECIFIED SYSTOLIC (CONGESTIVE) HEART FAILURE (4) Myocardial infarct Assessment/Plan: F?u records. "Old SD years ago, followed a few years later by ICD. ?"Small SD and elevated TNI" a few days ago at [facility], though he was there only two days. TNI now 0.03-->0.04 EKG: atrial sensed, V pacing/LBBB Code(s): I21.9 - ACUTE MYOCARDIAL INFARCTION, UNSPECIFIED (5) Weight loss, unintentional Code(s): R63.4 - ABNORMAL WEIGHT LOSS (6) COPD (chronic obstructive pulmonary disease) Assessment/Plan: Hx "emphysema", per daughter. Pt quit smoking at least 10 yrs ago. Code(s): J44.9 - CHRONIC OBSTRUCTIVE PULMONARY DISEASE, UNSPECIFIED cardiac felipe stable
[2018-07-02 16:11] LABS: ARTERIAL BLD GAS O2 SATURATION 97.1 % (95-98); ARTERIAL BLOOD GAS BASE EXCESS -4.5 meq/l (-2-2); ARTERIAL BLOOD GAS PCO2 27.8 mmHg (35-45); ARTERIAL BLOOD GAS PO2 92.8 mmHg (80-105); ARTERIAL BLOOD GAS pH 7.43 (7.35-7.45)
[2018-07-02 16:24] LABS: ALLENS TEST POSITIVE
[2018-07-02] MEDS ORDERED: INSULIN (NOVOLOG) ASPART 100 UNITS/ML 10ML VIAL ONE (21:27)
[2018-07-03 03:14] LABS: HEP.C VIRUS AB 0.1 s/co ratio (0.0-0.9)
[2018-07-03] MEDS: HEPARIN NA (PORCINE) 5,000 UNITS/ML 1ML VIAL SQ SCH ×3 (06:27→22:01)
[2018-07-03] MEDS: INSULIN SLIDING SCALE (NOVOLOG) 1 VIAL SQ SCH ×4 (06:30→22:02)
[2018-07-03] MEDS ORDERED: PT OWN MED DRAWER 7, Y5N ONE (09:34)
[2018-07-03] MEDS: ASPIRIN 81 MG CHEWABLE TABLETS PO SCH (09:38)
[2018-07-03] MEDS: CARVEDILOL 3.125 MG TABLET (FP) PO SCH ×2 (09:39→22:01)
[2018-07-03] MEDS: FEBUXOSTAT 40 MG TAB PO SCH (09:39)
--- NOTE | 2018-07-03 09:39 | PN ---
Progress Note (short form) - Note Progress Note: Renal follow up for ELLIOTT Pt seen and examined at the bedside awake and alert no acute complaints no sob, cp, abd pain, N/V/D tolerating oral diet Vital Signs Temperature 97.4 F L 07/03/18 08:54 Pulse Rate 95 H 07/03/18 08:54 Respiratory Rate 18 07/03/18 08:54 Blood Pressure 92/60 07/03/18 08:54 O2 Sat by Pulse Oximetry (%) 94 L 07/02/18 21:00 Intake & Output 06/30/18 07/01/18 07/02/18 07/03/18 23:59 23:59 23:59 23:59 Intake Total 240 960 700 Output Total 600 Balance -360 960 700 Weight 83.915 kg 87.679 kg NAD Neck supple, no JVD RRR, no M/R CTA, no rales soft NT/ND no LE edmea, clubbing or cyanosis no bladder distension CBC, BMP 07/02/18 06:30 Current Medications Aspirin (Asa -) 81 mg PO DAILY [facility] Last Admin: 07/02/18 10:16 Dose: 81 mg Atorvastatin Calcium (Lipitor -) 10 mg PO HS [facility] Last Admin: 07/01/18 21:23 Dose: 10 mg Budesonide/Formoterol Fumarate (Symbicort 160/4.5mcg -) 2 puff IH BID [facility] Last Admin: 07/02/18 22:31 Dose: 2 puff Carvedilol (Coreg -) 3.125 mg PO BID [facility] Last Admin: 07/02/18 22:04 Dose: 3.125 mg Cholecalciferol (Vitamin D3 -) 5,000 unit PO WEEKLY [facility] Febuxostat (Uloric -) 40 mg PO DAILY [facility] Last Admin: 07/02/18 11:20 Dose: 40 mg Heparin Sodium (Porcine) (Heparin -) 5,000 unit SQ TID [facility] Last Admin: 07/03/18 06:27 Dose: 5,000 unit Sodium Chloride (Normal Saline -) 1,000 mls @ 30 mls/hr IV ASDIR [facility] Last Admin: 07/02/18 11:21 Dose: 30 mls/hr Insulin Aspart (Novolog Vial Sliding Scale -) 1 vial SQ ACHS [facility]; Protocol Last Admin: 07/03/18 06:30 Dose: Not Given 77 year old gentleman with hx of CKD stage 3 (baseline Cr 1.8-2), CAD s/p PCI, CHF with very low LVEF, hyperlipidemia, hypertension, AICD placement, DM, COPD who presented from Dr. Connolly s office with hypotension and found to have increasing confusion and ELLIOTT. #ELLIOTT on CKD due to volume depletion #Hypotension #Altered mental status r/o dementia vs. other cause #DM #Hypertension #CHF #metabolic acidosis with respiratory compensation todys labs pending ,renal function stable as of yesterday FeUrea was 38.5% indicating slight tubular dysfunction can d/c IVF oral intake as tolerated hold ACEi and diuretics for now as no edema or volume overload start oral bicarbonte for metabolic acidosis Vit B12, folic acid WNL RPR non-reactive TSH slightly elevated check urine culture neurology consultation appreciated CT head w/o acute changes Thank you Will follow Mikhail Ling DO
[2018-07-03] MEDS: BUDESONIDE/FORMETEROL FUMARATE 160/4.5 mcg INHALER IH SCH ×2 (09:40→22:00)
[2018-07-03 10:22] LABS: ALBUMIN 3.2 g/dl (3.4-5.0); BILIRUBIN,TOTAL 2.4 mg/dL (0.2-1); CREATININE 2.3 mg/dL (0.55-1.3); MAGNESIUM 2.9 mg/dL (1.8-2.4); PHOSPHOROUS 4.6 mg/dL (2.5-4.9); POTASSIUM 4.4 mmol/L (3.5-5.1); TOT PROT 6.5 g/dl (6.4-8.2)
[2018-07-03] MEDS: SODIUM BICARBONATE 650 MG TABLET PO SCH ×2 (13:06→22:01)
--- NOTE | 2018-07-03 18:56 | PN ---
Progress Note (short form) - Note Progress Note: Patient is better today , has low BP. Vital Signs Temperature 97.4 F L 07/03/18 08:54 Pulse Rate 85 07/03/18 10:00 Respiratory Rate 18 07/03/18 09:00 Blood Pressure 90/41 L 07/03/18 10:00 O2 Sat by Pulse Oximetry (%) 94 L 07/02/18 21:00 GENERAL: The patient is awake, alert, and fully oriented, in no acute distress. HEAD: Normal with no signs of trauma. EYES: PERRL, extraocular movements intact, sclera anicteric, conjunctiva clear. ENT: Ears normal, oropharynx clear without exudates, moist mucous membranes. NECK: Trachea midline, full range of motion, supple. LUNGS: decreased BS BL, no wheezes, no crackles, no accessory muscle use. HEART: Regular rate and rhythm, S1, S2 without murmur, rub or gallop. ABDOMEN: Soft, nontender, nondistended, normoactive bowel sounds, no guarding, no rebound, no hepatosplenomegaly, no masses. EXTREMITIES: 2+ pulses, warm, well-perfused, no edema. NEUROLOGICAL: Cranial nerves II through XII grossly intact. Normal speech, gait not observed. PSYCH: Normal mood, normal affect. SKIN: Warm, dry, normal turgor, no rashes or lesions noted CBCD WBC 6.0 K/mm3 (4.0-10.0) 07/02/18 06:30 RBC 4.42 M/mm3 (4.00-5.60) 07/02/18 06:30 Hgb 13.2 GM/dL (11.7-16.9) 07/02/18 06:30 Hct 41.6 % (35.4-49) 07/02/18 06:30 MCV 94.0 fl (80-96) 07/02/18 06:30 MCHC 31.6 g/dl (32.0-35.9) L 07/02/18 06:30 RDW 15.8 % (11.9-15.9) 07/02/18 06:30 Plt Count 153 K/MM3 (134-434) 07/02/18 06:30 MPV 8.2 fl (7.5-11.1) 07/02/18 06:30 CMP Sodium 137 mmol/L (136-145) 07/03/18 08:50 Potassium 4.4 mmol/L (3.5-5.1) 07/03/18 08:50 Chloride 104 mmol/L (98-107) 07/03/18 08:50 Carbon Dioxide 24 mmol/L (21-32) 07/03/18 08:50 Anion Gap 8 MMOL/L (8-16) 07/03/18 08:50 BUN 76 mg/dL (7-18) H 07/03/18 08:50 Creatinine 2.3 mg/dL (0.55-1.3) H 07/03/18 08:50 Random Glucose 124 mg/dL (74-106) H 07/03/18 08:50 Calcium 9.0 mg/dL (8.5-10.1) 07/03/18 08:50 Total Bilirubin 2.4 mg/dL (0.2-1) H 07/03/18 08:50 AST 64 U/L (15-37) H 07/03/18 08:50 ALT 173 U/L (13-61) H 07/03/18 08:50 Alkaline Phosphatase 73 U/L (45-117) 07/03/18 08:50 Total Protein 6.5 g/dl (6.4-8.2) 07/03/18 08:50 Albumin 3.2 g/dl (3.4-5.0) L 07/03/18 08:50 CARDIAC ENZYMES Creatine Kinase 160 U/L (26-308) 06/30/18 21:30 Troponin I 0.02 ng/ml (0.00-0.05) 07/01/18 11:25 Current Medications Generic Name Dose Route Start Last Admin Trade Name Freq PRN Reason Stop Dose Admin Aspirin 81 mg 07/01/18 10:00 07/03/18 09:38 Asa - PO 81 mg DAILY [facility] Administration Atorvastatin Calcium 10 mg 07/01/18 22:00 07/01/18 21:23 Lipitor - PO 10 mg HS [facility] Administration Budesonide/Formoterol Fumarate 2 puff 07/01/18 10:00 07/03/18 09:40 Symbicort 160/4.5mcg - IH 2 puff BID [facility] Administration Carvedilol 3.125 mg 07/01/18 10:00 07/03/18 09:39 Coreg - PO Not Given BID [facility] Cholecalciferol 5,000 unit 07/01/18 01:30 Vitamin D3 - PO WEEKLY [facility] Febuxostat 40 mg 07/01/18 12:00 07/03/18 09:39 Uloric - PO 40 mg DAILY [facility] Administration Heparin Sodium (Porcine) 5,000 unit 07/01/18 22:00 07/03/18 14:00 Heparin - SQ 5,000 unit TID [facility] Administration Insulin Aspart 1 vial 07/01/18 07:00 07/03/18 17:11 Novolog Vial Sliding Scale - SQ Not Given ACHS [facility] Protocol Sodium Bicarbonate 650 mg 07/03/18 10:00 07/03/18 13:06 Sodium Bicarbonate - PO 650 mg BID [facility] Administration Home Medications Medication Instructions Recorded Aspirin [ASA -] 81 mg PO DAILY 01/02/17 Cholecalciferol (Vitamin D3) 5,000 unit PO WEEKLY 01/02/17 [Vitamin D -] Febuxostat [Uloric] 40 mg PO DAILY 01/02/17 Gabapentin 300 mg PO DAILY 01/02/17 Glimepiride [Amaryl] 2 mg PO DAILY 01/02/17 Lipitor 10 mg PO HS 01/02/17 Carvedilol [Coreg -] 3.125 mg PO BID 06/17/18 Budesonide/Formeterol Fumarate 2 puff IH BID #1 inhaler 06/21/18 [SYMBICORT 160/4.5mcg -] An echocardiogram done a week ago showed severe global hypokinesis and severe left ventricular dysfunction. EJF 15-20% ASSESSMENT AND PLAN: Patient is a 77yo male with PMHx of hypertension, hyperlipidemia, left ventricular dysfunction/congestive heart failure, chronic kidney disease stage 4 , Coronary artery disease s/p stenting, [place] S/P defibrillator placement, gout, diabetes, COPD , presented to ED. for having worsening generalized weakness and poor oral intake. Also was found to be hypotensive at his doctor's office , was sent to the emergency room for further evaluation . # Acute generalized weakness:patient is better today , has no complains , patient most likely will benefit for Entersto, but need to monitor his creatinine. # Hx of copd continue home meds. #ELLIOTT on CKD; Baselin is 1.8-->2.0--> 2.6 -->2.3 today , continue gentle hydration , nephro consulted dr Ling , hold lasix and vasotec ## Hx of gout with elevated Uric acid #elevated T bili with LFTs most likely due to having liver congestion due to elevated BNP : most likely due to liver congestion/fatty infiltration. improving is 1.6 today. #Hx of VT s/p stent. #elevated TSH, and FT4, as per vice president digital strategist most likely sick euthyroid. Follow with as an outpatient, for further w/u #DM ss with coverage DVT Px: HEparin sq Visit type - Emergency Visit Emergency Visit: Yes ED Registration Date: 07/01/18 Care time: The patient presented to the Emergency Department on the above date and was hospitalized for further evaluation of their emergent condition. - New Patient This patient is new to me today: No - Critical Care Critical Care patient: No - Discharge Referral Referred to [facility] No
[2018-07-04] MEDS: HEPARIN NA (PORCINE) 5,000 UNITS/ML 1ML VIAL SQ SCH ×4 (06:10→23:04)
[2018-07-04] MEDS: INSULIN SLIDING SCALE (NOVOLOG) 1 VIAL SQ SCH ×4 (06:10→22:59)
[2018-07-04] MEDS: CARVEDILOL 3.125 MG TABLET (FP) PO SCH ×2 (09:51→22:58)
[2018-07-04] MEDS: SODIUM BICARBONATE 650 MG TABLET PO SCH ×2 (09:51→22:58)
[2018-07-04] MEDS: BUDESONIDE/FORMETEROL FUMARATE 160/4.5 mcg INHALER IH SCH ×2 (09:52→23:00)
[2018-07-04] MEDS: ASPIRIN 81 MG CHEWABLE TABLETS PO SCH (09:52)
--- NOTE | 2018-07-04 11:06 | PN ---
Physical Exam: SUBJECTIVE: Patient seen and examined at bedside. No complaints. Pt still appears sleepy. OBJECTIVE: Vital Signs Period Temp Pulse Resp BP Sys/Robbins Pulse Ox Last 24 Hr 97.8 F-98.8 F 68-95 18-20 104-117/56-78 Gen: drowsy, NAD HEENT: NCAT Neck: supple, no jvd Cardio: rrr, normal s1s2, no mrg appreciated Pulm: cta b/l Abd: nondistended, soft, nontender ext: no edema, 2+ pulses Laboratory Results - last 24 hr 07/03/18 07/03/18 07/03/18 08:50 11:58 16:38 POC Glucometer 134 140 Free T3 1.5 L 07/03/18 07/04/18 21:59 06:09 POC Glucometer 155 165 Free T3 Active Medications Generic Name Dose Route Start Last Admin Trade Name Freq PRN Reason Stop Dose Admin Aspirin 81 mg 07/01/18 10:00 07/04/18 09:52 Asa - PO 81 mg DAILY [facility] Administration Atorvastatin Calcium 10 mg 07/01/18 22:00 07/01/18 21:23 Lipitor - PO 10 mg HS [facility] Administration Budesonide/Formoterol Fumarate 2 puff 07/01/18 10:00 07/04/18 09:52 Symbicort 160/4.5mcg - IH 2 puff BID [facility] Administration Carvedilol 3.125 mg 07/01/18 10:00 07/04/18 09:51 Coreg - PO 3.125 mg BID [facility] Administration Cholecalciferol 5,000 unit 07/01/18 01:30 Vitamin D3 - PO WEEKLY [facility] Febuxostat 40 mg 07/01/18 12:00 07/03/18 09:39 Uloric - PO 40 mg DAILY [facility] Administration Heparin Sodium (Porcine) 5,000 unit 07/01/18 22:00 07/04/18 06:10 Heparin - SQ 5,000 unit TID [facility] Administration Insulin Aspart 1 vial 07/01/18 07:00 07/04/18 06:10 Novolog Vial Sliding Scale - SQ 2 units ACHS [facility] Administration Protocol Sodium Bicarbonate 650 mg 07/03/18 10:00 07/04/18 09:51 Sodium Bicarbonate - PO 650 mg BID [facility] Administration ASSESSMENT/PLAN: 77 y/o M PMH HTN, HLD, LV dysfunction/CHF, CKD 4, CAD s/p stents, [place] s/p defribilator, gout, DM, COPD due to smoking history?, who presented from Dr. Hood office with Weakness, poor PO intake, hypotension and found to have increasing confusion and ELLIOTT. #? Metabolic encephalopathy vs suspected worsening dementia, poor PO intake -Dr. Connolly consulted -Consulted Neurology, Tammy: ? metab enceph -CT head w/o acute changes -hold ACEi and diuretics for now -encourage PO hydration #ELLIOTT on CKD stage4 2/2 volume depletion, baseline Cr is 1.8-2 -UA neg -monitor BMP -f/u urine studies -hold ACEi and diuretics for now -stop IVF -nephro on board #CHF with Severe LV dysfunction: not likely an acute issue -EKG was essentially unchanged since prior -cardio consult, Evy for optimization of HF meds, pt noted here w/ slightly low BP -continue ASA, carvedilol #Acute Transaminitis: Unclear etiology Given the information that we have, could be a result of hypotension in the setting of volume depletion. The patient is not on any significant hepatotoxic medications. improving w/ IVF -hepatitis panel unremarkable -Ultrasound of the RUQ showed fatty infiltration of the liver -will hold lipitor until resolves -cont to trend LFTs, if continues to stay elevated will consider an MRCP -elevated bili. slowly climbing. Will fractionate #Hx of gout with elevated Uric acid - no signs of gout c/w home febuxostat #elevated TSH, and FT4, -as per dental secretary most likely sick euthyroid. -will follow with as an outpatient, for further w/u #DM: chronic -hold diabetic meds -ISS -BGM ACHS #CAD: chronic -continue ASA #FEN -NS at 30cc per hour x 24 hours and encourage PO hydration -replete prn -diabetic/sodium diet #Prophylaxis -SQH tid #Dispo -med surg Visit type - Emergency Visit Emergency Visit: No - New Patient This patient is new to me today: No - Critical Care Critical Care patient: No
[2018-07-04] MEDS: FEBUXOSTAT 40 MG TAB PO SCH (11:24)
--- NOTE | 2018-07-04 13:36 | PN ---
Progress Note, Physician Chief Complaint: The patient seen and examined in his room. Daughter by his bed. He looks confused, but less than on the day of admission. No chest pains, No shortness of breath. Refuses to eat well. Ambulatory status poor. History of Present Illness: 77 year old gentleman with hx of CKD stage 3 (baseline Cr 1.8-2), CAD s/p PCI, CHF with very low LVEF, hyperlipidemia, hypertension, AICD placement, DM, COPD who presented from my office with hypotension and found to have increasing confusion and ELLIOTT. The acute kidney failure is related to hypovolemia. MARY Inhibitors on hold. The azotemia is slowly improving with cautious hydration. BP improving. the change in mentation remains to be explained fully. Could there be a component of depression. #ELLIOTT on CKD due to volume depletion #Hypotension #Altered mental status r/o dementia vs. other cause #DM #Hypertension #CHF #metabolic acidosis with respiratory compensation - Current Medication List Current Medications: Active Medications Aspirin (Asa -) 81 mg PO DAILY [facility] Last Admin: 07/04/18 09:52 Dose: 81 mg Atorvastatin Calcium (Lipitor -) 10 mg PO HS [facility] Last Admin: 07/01/18 21:23 Dose: 10 mg Budesonide/Formoterol Fumarate (Symbicort 160/4.5mcg -) 2 puff IH BID [facility] Last Admin: 07/04/18 09:52 Dose: 2 puff Carvedilol (Coreg -) 3.125 mg PO BID [facility] Last Admin: 07/04/18 09:51 Dose: 3.125 mg Cholecalciferol (Vitamin D3 -) 5,000 unit PO WEEKLY [facility] Febuxostat (Uloric -) 40 mg PO DAILY [facility] Last Admin: 07/04/18 11:24 Dose: 40 mg Heparin Sodium (Porcine) (Heparin -) 5,000 unit SQ TID [facility] Last Admin: 07/04/18 06:10 Dose: 5,000 unit Insulin Aspart (Novolog Vial Sliding Scale -) 1 vial SQ ACHS [facility]; Protocol Last Admin: 07/04/18 11:23 Dose: Not Given Sodium Bicarbonate (Sodium Bicarbonate -) 650 mg PO BID [facility] Last Admin: 07/04/18 09:51 Dose: 650 mg - Objective Vital Signs: Vital Signs Temperature 98.8 F 07/04/18 09:54 Pulse Rate 95 H 07/04/18 09:54 Respiratory Rate 18 07/04/18 09:54 Blood Pressure 117/78 07/04/18 09:54 O2 Sat by Pulse Oximetry (%) 94 L 07/02/18 21:00 Constitutional: Yes: Anxious, Mild Distress HENT: Yes: Normocephalic Neck: Yes: Trachea Midline Cardiovascular: Yes: Regular Rate and Rhythm Respiratory: Yes: CTA Bilaterally Gastrointestinal: Yes: Normal Bowel Sounds, Soft Genitourinary: No: Bladder Distention, CVA Tenderness - Left, CVA Tenderness - Right, Hematuria Neurological: Yes: Lethargy Psychiatric: Yes: Alert, Oriented Labs: CBC, BMP 07/02/18 06:30 07/03/18 08:50 INR, PTT INR 1.64 (0.83-1.09) H 06/30/18 21:30 Problem List - Problems (1) ELLIOTT (acute kidney injury) Code(s): N17.9 - ACUTE KIDNEY FAILURE, UNSPECIFIED (2) Hypotension Code(s): I95.9 - HYPOTENSION, UNSPECIFIED Qualifiers: Hypotension type: unspecified hypotension type Qualified Code(s): I95.9 - Hypotension, unspecified (3) Weakness Code(s): R53.1 - WEAKNESS (4) Anemia Code(s): D64.9 - ANEMIA, UNSPECIFIED Qualifiers: Anemia type: unspecified type Qualified Code(s): D64.9 - Anemia, unspecified (5) Diabetes mellitus type 2 in obese Code(s): E11.9 - TYPE 2 DIABETES MELLITUS WITHOUT COMPLICATIONS; E66.9 - OBESITY , UNSPECIFIED (6) Hyperlipidemia Code(s): E78.5 - HYPERLIPIDEMIA, UNSPECIFIED (7) Hypertension Code(s): I10 - ESSENTIAL (PRIMARY) HYPERTENSION (8) Renal insufficiency Code(s): N28.9 - DISORDER OF KIDNEY AND URETER, UNSPECIFIED (9) Weight loss, unintentional Code(s): R63.4 - ABNORMAL WEIGHT LOSS Assessment/Plan 77 year old gentleman with hx of CKD stage 3 (baseline Cr 1.8-2), CAD s/p PCI, CHF with very low LVEF, hyperlipidemia, hypertension, AICD placement, DM, COPD who presented from my office with hypotension and found to have increasing confusion and ELLIOTT. The acute kidney failure is related to hypovolemia. MARY Inhibitors on hold. The etiology of the change in mentation remains obscure. But can't rule out the possibility of Depression. The patient has multiple medical problems, and it may be a good possibility that we are seeing Clinical depression taking physical manifestations. May consider geting Psych eval to possibly start on Antidepressants. ? PT for ambulation Thank you again. Will follow with you. Yane Connolly MD
--- NOTE | 2018-07-04 14:14 | EKG ---
Test Reason : Blood Pressure : / mmHG Vent. Rate : 103 BPM Atrial Rate : 103 BPM P-R Int : 152 ms QRS Dur : 182 ms QT Int : 458 ms P-R-T Axes : 035 -45 054 degrees QTc Int : 599 ms Atrial-sensed ventricular-paced rhythm Biventricular pacemaker detected ABNORMAL ECG WHEN COMPARED WITH ECG OF 30-JUN-2018 20:57, VENT. RATE HAS INCREASED BY 17 BPM Confirmed by MD Noah, Basim ([id number]) on 07/04/2018 2:14:25 PM Referred By: Kerry SWIFT Confirmed By:Basim Zamora MD
--- NOTE | 2018-07-04 14:26 | PN ---
Teaching Attending Note Name of Resident: Patel Nova ATTENDING PHYSICIAN STATEMENT I saw and evaluated the patient. I reviewed the resident's note and discussed the case with the resident. I agree with the resident's findings and plan as documented. SUBJECTIVE: Patient is feeling better but not his optimum. confused on and off. OBJECTIVE: Vital Signs Temperature 98.8 F 07/04/18 09:54 Pulse Rate 95 H 07/04/18 09:54 Respiratory Rate 18 07/04/18 09:54 Blood Pressure 117/78 07/04/18 09:54 O2 Sat by Pulse Oximetry (%) 94 L 07/02/18 21:00 GENERAL: The patient is awake, alert, and fully oriented, in no acute distress. HEAD: Normal with no signs of trauma. EYES: PERRL, extraocular movements intact, sclera anicteric, conjunctiva clear. ENT: Ears normal, oropharynx clear without exudates, moist mucous membranes. NECK: Trachea midline, full range of motion, supple. LUNGS: decreased BS BL, no wheezes, no crackles, no accessory muscle use. HEART: Regular rate and rhythm, S1, S2 without murmur, rub or gallop. ABDOMEN: Soft, nontender, nondistended, normoactive bowel sounds, no guarding, no rebound, no hepatosplenomegaly, no masses. EXTREMITIES: 2+ pulses, warm, well-perfused, no edema. NEUROLOGICAL: Cranial nerves II through XII grossly intact. Normal speech, gait not observed. PSYCH: Normal mood, normal affect. SKIN: Warm, dry, normal turgor, no rashes or lesions noted WBC 6.0 K/mm3 (4.0-10.0) 07/02/18 06:30 RBC 4.42 M/mm3 (4.00-5.60) 07/02/18 06:30 Hgb 13.2 GM/dL (11.7-16.9) 07/02/18 06:30 Hct 41.6 % (35.4-49) 07/02/18 06:30 MCV 94.0 fl (80-96) 07/02/18 06:30 MCHC 31.6 g/dl (32.0-35.9) L 07/02/18 06:30 RDW 15.8 % (11.9-15.9) 07/02/18 06:30 Plt Count 153 K/MM3 (134-434) 07/02/18 06:30 MPV 8.2 fl (7.5-11.1) 07/02/18 06:30 CMP Sodium 137 mmol/L (136-145) 07/03/18 08:50 Potassium 4.4 mmol/L (3.5-5.1) 07/03/18 08:50 Chloride 104 mmol/L (98-107) 07/03/18 08:50 Carbon Dioxide 24 mmol/L (21-32) 07/03/18 08:50 Anion Gap 8 MMOL/L (8-16) 07/03/18 08:50 BUN 76 mg/dL (7-18) H 07/03/18 08:50 Creatinine 2.3 mg/dL (0.55-1.3) H 07/03/18 08:50 Random Glucose 124 mg/dL (74-106) H 07/03/18 08:50 Calcium 9.0 mg/dL (8.5-10.1) 07/03/18 08:50 Total Bilirubin 2.4 mg/dL (0.2-1) H 07/03/18 08:50 AST 64 U/L (15-37) H 07/03/18 08:50 ALT 173 U/L (13-61) H 07/03/18 08:50 Alkaline Phosphatase 73 U/L (45-117) 07/03/18 08:50 Total Protein 6.5 g/dl (6.4-8.2) 07/03/18 08:50 Albumin 3.2 g/dl (3.4-5.0) L 07/03/18 08:50 CARDIAC ENZYMES Creatine Kinase 160 U/L (26-308) 06/30/18 21:30 Troponin I 0.02 ng/ml (0.00-0.05) 07/01/18 11:25 Current Medications Generic Name Dose Route Start Last Admin Trade Name Jourdanq PRN Reason Stop Dose Admin Aspirin 81 mg 07/01/18 10:00 07/04/18 09:52 Asa - PO 81 mg DAILY [facility] Administration Atorvastatin Calcium 10 mg 07/01/18 22:00 07/01/18 21:23 Lipitor - PO 10 mg HS [facility] Administration Budesonide/Formoterol Fumarate 2 puff 07/01/18 10:00 07/04/18 09:52 Symbicort 160/4.5mcg - IH 2 puff BID [facility] Administration Carvedilol 3.125 mg 07/01/18 10:00 07/04/18 09:51 Coreg - PO 3.125 mg BID [facility] Administration Cholecalciferol 5,000 unit 07/01/18 01:30 Vitamin D3 - PO WEEKLY [facility] Febuxostat 40 mg 07/01/18 12:00 07/04/18 11:24 Uloric - PO 40 mg DAILY [facility] Administration Heparin Sodium (Porcine) 5,000 unit 07/01/18 22:00 07/04/18 06:10 Heparin - SQ 5,000 unit TID [facility] Administration Insulin Aspart 1 vial 07/01/18 07:00 07/04/18 11:23 Novolog Vial Sliding Scale - SQ Not Given ACHS [facility] Protocol Sodium Bicarbonate 650 mg 07/03/18 10:00 07/04/18 09:51 Sodium Bicarbonate - PO 650 mg BID [facility] Administration Home Medications Medication Instructions Recorded Aspirin [ASA -] 81 mg PO DAILY 01/02/17 Cholecalciferol (Vitamin D3) 5,000 unit PO WEEKLY 01/02/17 [Vitamin D -] Febuxostat [Uloric] 40 mg PO DAILY 01/02/17 Gabapentin 300 mg PO DAILY 01/02/17 Glimepiride [Amaryl] 2 mg PO DAILY 01/02/17 Lipitor 10 mg PO HS 01/02/17 Carvedilol [Coreg -] 3.125 mg PO BID 06/17/18 Budesonide/Formeterol Fumarate 2 puff IH BID #1 inhaler 06/21/18 [SYMBICORT 160/4.5mcg -] An echocardiogram done a week ago showed severe global hypokinesis and severe left ventricular dysfunction. EJF 15-20% ASSESSMENT AND PLAN: Patient is a 77yo male with PMHx of hypertension, hyperlipidemia, left ventricular dysfunction/congestive heart failure, chronic kidney disease stage 4 , Coronary artery disease s/p stenting, [place] S/P defibrillator placement, gout, diabetes, COPD , presented to ED. for having worsening generalized weakness and poor oral intake. Also was found to be hypotensive at his doctor's office , was sent to the emergency room for further evaluation . # Acute generalized weakness: improving , confused on and off, has no new complains , patient most likely will benefit for Entersto, but need to monitor his creatinine. #ELLIOTT on CKD; Baselin is 1.8-->2.0--> 2.6 -->2.3-->2.[address] Hood , patient is at baseline , will continue gentle hydration , nephro consult appreciated dr Ling , hold lasix and vasotec # Hx of copd continue home meds. ## Hx of gout with elevated Uric acid #elevated T bili with LFTs most likely due to having liver congestion due to elevated BNP : most likely due to liver congestion/fatty infiltration. LFTs are trending down #Hx of [place] s/p stent. #elevated TSH, and FT4, as per gut sorter most likely sick euthyroid. Follow with as an outpatient, for repeat w/u and further w/u will repeat the level for am, b12 and folic acid. #DM ss with coverage DVT Px: HEparin sq
[2018-07-05] MEDS: HEPARIN NA (PORCINE) 5,000 UNITS/ML 1ML VIAL SQ SCH ×3 (06:01→21:59)
[2018-07-05] MEDS: INSULIN SLIDING SCALE (NOVOLOG) 1 VIAL SQ SCH ×4 (06:02→21:59)
[2018-07-05 08:41] LABS: BASO % 0.1 % (0-2.0); EOS % 0.5 % (0-4.5); HEMATOCRIT 42.9 % (35.4-49); HEMOGLOBIN 13.5 GM/dL (11.7-16.9); LYMPH % 31.5 % (8-40); MCH 29.4 pg (25.7-33.7); MCHC 31.3 g/dl (32.0-35.9); MEAN CELL VOLUME 93.8 fl (80-96); MEAN PLT VOLUME 7.9 fl (7.5-11.1); MONO % 5.7 % (3.8-10.2); NEUT % 62.2 % (42.8-82.8); PLATELET COUNT 208 K/MM3 (134-434); RBC 4.58 M/mm3 (4.00-5.60); RDW 16.2 % (11.9-15.9); WHITE BLOOD COUNT 6.1 K/mm3 (4.0-10.0)
[2018-07-05 09:07] LABS: ALBUMIN 3.5 g/dl (3.4-5.0); BILIRUBIN,DIRECT 1.6 mg/dL (0.0-0.2); BILIRUBIN,TOTAL 2.6 mg/dL (0.2-1); CALCIUM 9.4 mg/dL (8.5-10.1); CREATININE 2.7 mg/dL (0.55-1.3); POTASSIUM 5.3 mmol/L (3.5-5.1)
[2018-07-05] MEDS: ASPIRIN 81 MG CHEWABLE TABLETS PO SCH (11:10)
[2018-07-05] MEDS: FEBUXOSTAT 40 MG TAB PO SCH (11:10)
[2018-07-05] MEDS: SODIUM BICARBONATE 650 MG TABLET PO SCH ×2 (11:10→21:59)
[2018-07-05] MEDS: CARVEDILOL 3.125 MG TABLET (FP) PO SCH ×2 (11:10→21:59)
[2018-07-05] MEDS: BUDESONIDE/FORMETEROL FUMARATE 160/4.5 mcg INHALER IH SCH ×2 (11:11→22:17)
[2018-07-05] MEDS ORDERED: SODIUM CHLORIDE 0.45% 1,000 ML IV SCH (11:30)
--- NOTE | 2018-07-05 12:39 | PN ---
Progress Note, Physician Chief Complaint: The patient seen and examined in his room. Confused, and slightly agitated. No chest pains, No shortness of breath. Refuses to eat well. Ambulatory status poor. History of Present Illness: 77 year old gentleman with hx of CKD stage 3 (baseline Cr 1.8-2), CAD s/p PCI, CHF with very low LVEF, hyperlipidemia, hypertension, AICD placement, DM, COPD who presented from my office with hypotension and found to have increasing confusion and ELLIOTT. The acute kidney failure is related to hypovolemia. MARY Inhibitors on hold. The change in mentation remains to be explained fully. ? Depression. For Psych eval. #ELLIOTT on CKD due to volume depletion. On IV fluids. Serum Cr has increased today. ? Hemodynamic. #Altered mental status. ? Etiology #DM #Hypertension..now with Hypotension. #Mild Hyperkalemia... may reflect a K secretory defect Will change the IV to Normal saline. Should help with the BP, renal perfusion and correcting the Potassium. For Psych eval. Yane Connolly MD - Current Medication List Current Medications: Active Medications Aspirin (Asa -) 81 mg PO DAILY [facility] Last Admin: 07/05/18 11:10 Dose: 81 mg Atorvastatin Calcium (Lipitor -) 10 mg PO HS [facility] Last Admin: 07/01/18 21:23 Dose: 10 mg Budesonide/Formoterol Fumarate (Symbicort 160/4.5mcg -) 2 puff IH BID [facility] Last Admin: 07/05/18 11:11 Dose: 2 puff Carvedilol (Coreg -) 3.125 mg PO BID [facility] Last Admin: 07/05/18 11:10 Dose: 3.125 mg Cholecalciferol (Vitamin D3 -) 5,000 unit PO WEEKLY [facility] Febuxostat (Uloric -) 40 mg PO DAILY [facility] Last Admin: 07/05/18 11:10 Dose: 40 mg Heparin Sodium (Porcine) (Heparin -) 5,000 unit SQ TID [facility] Last Admin: 07/05/18 06:01 Dose: Not Given Sodium Chloride (1/2 Normal Saline) 1,000 mls @ 42 mls/hr IV ASDIR [facility] Stop: 07/06/18 11:19 Last Admin: 07/05/18 12:17 Dose: 42 mls/hr Insulin Aspart (Novolog Vial Sliding Scale -) 1 vial SQ ACHS [facility]; Protocol Last Admin: 07/05/18 12:17 Dose: Not Given Sodium Bicarbonate (Sodium Bicarbonate -) 650 mg PO BID [facility] Last Admin: 07/05/18 11:10 Dose: 650 mg - Objective Vital Signs: Vital Signs Temperature 96.8 F L 07/05/18 06:00 Pulse Rate 80 07/04/18 22:44 Respiratory Rate 18 07/05/18 06:00 Blood Pressure 110/70 07/05/18 06:00 O2 Sat by Pulse Oximetry (%) 94 L 07/02/18 21:00 Labs: CBC, BMP 07/05/18 08:20 07/05/18 08:20 INR, PTT INR 1.64 (0.83-1.09) H 06/30/18 21:30 Problem List - Problems (1) ELLIOTT (acute kidney injury) Code(s): N17.9 - ACUTE KIDNEY FAILURE, UNSPECIFIED (2) Hypotension Code(s): I95.9 - HYPOTENSION, UNSPECIFIED Qualifiers: Hypotension type: unspecified hypotension type Qualified Code(s): I95.9 - Hypotension, unspecified (3) Weakness Code(s): R53.1 - WEAKNESS (4) Anemia Code(s): D64.9 - ANEMIA, UNSPECIFIED Qualifiers: Anemia type: unspecified type Qualified Code(s): D64.9 - Anemia, unspecified (5) Diabetes mellitus type 2 in obese Code(s): E11.9 - TYPE 2 DIABETES MELLITUS WITHOUT COMPLICATIONS; E66.9 - OBESITY , UNSPECIFIED (6) Hyperlipidemia Code(s): E78.5 - HYPERLIPIDEMIA, UNSPECIFIED (7) Hypertension Code(s): I10 - ESSENTIAL (PRIMARY) HYPERTENSION (8) Renal insufficiency Code(s): N28.9 - DISORDER OF KIDNEY AND URETER, UNSPECIFIED (9) Weight loss, unintentional Code(s): R63.4 - ABNORMAL WEIGHT LOSS
[2018-07-05] MEDS: SODIUM CHLORIDE 1,000 ML IV SCH (14:42)
--- NOTE | 2018-07-05 18:09 | PN ---
Progress Note (short form) - Note Progress Note: PATIENT is confused more so today. otherwise no acute distress. Vital Signs Temperature 98 F 07/05/18 15:00 Pulse Rate 80 07/05/18 15:00 Respiratory Rate 19 07/05/18 15:00 Blood Pressure 133/75 07/05/18 15:00 O2 Sat by Pulse Oximetry (%) 94 L 07/02/18 21:00 GENERAL: The patient is awake, alert, but confused , in no acute distress. HEAD: Normal with no signs of trauma. EYES: PERRL, extraocular movements intact, sclera anicteric, conjunctiva clear. ENT: Ears normal, oropharynx clear without exudates, moist mucous membranes. NECK: Trachea midline, full range of motion, supple. LUNGS: decreased BS BL, no wheezes, no crackles, no accessory muscle use. HEART: Regular rate and rhythm, S1, S2 without murmur, rub or gallop. ABDOMEN: Soft, nontender, nondistended, normoactive bowel sounds, no guarding, no rebound, no hepatosplenomegaly, no masses. EXTREMITIES: 2+ pulses, warm, well-perfused, no edema. NEUROLOGICAL: Cranial nerves II through XII grossly intact. Normal speech, gait not observed. PSYCH:confused SKIN: Warm, dry, normal turgor, no rashes or lesions noted CBCD WBC 6.1 K/mm3 (4.0-10.0) 07/05/18 08:20 RBC 4.58 M/mm3 (4.00-5.60) 07/05/18 08:20 Hgb 13.5 GM/dL (11.7-16.9) 07/05/18 08:20 Hct 42.9 % (35.4-49) 07/05/18 08:20 MCV 93.8 fl (80-96) 07/05/18 08:20 MCHC 31.3 g/dl (32.0-35.9) L 07/05/18 08:20 RDW 16.2 % (11.9-15.9) H 07/05/18 08:20 Plt Count 208 K/MM3 (134-434) D 07/05/18 08:20 MPV 7.9 fl (7.5-11.1) 07/05/18 08:20 CMP Sodium 138 mmol/L (136-145) 07/05/18 08:20 Potassium 5.3 mmol/L (3.5-5.1) H 07/05/18 08:20 Chloride 106 mmol/L (98-107) 07/05/18 08:20 Carbon Dioxide 21 mmol/L (21-32) 07/05/18 08:20 Anion Gap 12 MMOL/L (8-16) 07/05/18 08:20 BUN 83 mg/dL (7-18) H 07/05/18 08:20 Creatinine 2.7 mg/dL (0.55-1.3) H 07/05/18 08:20 Random Glucose 131 mg/dL (74-106) H 07/05/18 08:20 Calcium 9.4 mg/dL (8.5-10.1) 07/05/18 08:20 Total Bilirubin 2.6 mg/dL (0.2-1) H 07/05/18 08:20 AST 89 U/L (15-37) H 07/05/18 08:20 ALT 163 U/L (13-61) H 07/05/18 08:20 Alkaline Phosphatase 80 U/L (45-117) 07/05/18 08:20 Total Protein 7.0 g/dl (6.4-8.2) 07/05/18 08:20 Albumin 3.5 g/dl (3.4-5.0) 07/05/18 08:20 CARDIAC ENZYMES Creatine Kinase 160 U/L (26-308) 06/30/18 21:30 Troponin I 0.02 ng/ml (0.00-0.05) 07/01/18 11:25 Current Medications Generic Name Dose Route Start Last Admin Trade Name Jourdanq PRN Reason Stop Dose Admin Aspirin 81 mg 07/01/18 10:00 07/05/18 11:10 Asa - PO 81 mg DAILY [facility] Administration Atorvastatin Calcium 10 mg 07/01/18 22:00 07/01/18 21:23 Lipitor - PO 10 mg HS [facility] Administration Budesonide/Formoterol Fumarate 2 puff 07/01/18 10:00 07/05/18 11:11 Symbicort 160/4.5mcg - IH 2 puff BID [facility] Administration Carvedilol 3.125 mg 07/01/18 10:00 07/05/18 11:10 Coreg - PO 3.125 mg BID [facility] Administration Cholecalciferol 5,000 unit 07/01/18 01:30 Vitamin D3 - PO WEEKLY [facility] Febuxostat 40 mg 07/01/18 12:00 07/05/18 11:10 Uloric - PO 40 mg DAILY [facility] Administration Heparin Sodium (Porcine) 5,000 unit 07/01/18 22:00 07/05/18 14:42 Heparin - SQ 5,000 unit TID [facility] Administration Sodium Chloride 1,000 mls @ 42 mls/hr 07/05/18 12:45 07/05/18 14:42 Normal Saline - IV 42 mls/hr ASDIR [facility] Administration Insulin Aspart 1 vial 07/01/18 07:00 07/05/18 17:31 Novolog Vial Sliding Scale - SQ Not Given ACHS [facility] Protocol Sodium Bicarbonate 650 mg 07/03/18 10:00 07/05/18 11:10 Sodium Bicarbonate - PO 650 mg BID [facility] Administration Home Medications Medication Instructions Recorded Aspirin [ASA -] 81 mg PO DAILY 01/02/17 Cholecalciferol (Vitamin D3) 5,000 unit PO WEEKLY 01/02/17 [Vitamin D -] Febuxostat [Uloric] 40 mg PO DAILY 01/02/17 Gabapentin 300 mg PO DAILY 01/02/17 Glimepiride [Amaryl] 2 mg PO DAILY 01/02/17 Lipitor 10 mg PO HS 01/02/17 Carvedilol [Coreg -] 3.125 mg PO BID 06/17/18 Budesonide/Formeterol Fumarate 2 puff IH BID #1 inhaler 06/21/18 [SYMBICORT 160/4.5mcg -] An echocardiogram done a week ago showed severe global hypokinesis and severe left ventricular dysfunction. EJF 15-20% ASSESSMENT AND PLAN: Patient is a 77yo male with PMHx of hypertension, hyperlipidemia, left ventricular dysfunction/congestive heart failure, chronic kidney disease stage 4 , Coronary artery disease s/p stenting, [place] S/P defibrillator placement, gout, diabetes, COPD , presented to ED. for having worsening generalized weakness and poor oral intake. Also was found to be hypotensive at his doctor's office , was sent to the emergency room for further evaluation . # Acute generalized weakness: improved, confused today, patient most likely will benefit for Entersto, but need to monitor his creatinine. #ELLIOTT on CKD; Baselin is 1.8-->2.0--> 2.6 -->2.3-->2.3--2.[address] Hood , patient is at baseline , will continue gentle hydration , nephro consult appreciated dr Ling , hold lasix and vasotec # Hx of copd continue home meds. ## Hx of gout with elevated Uric acid #elevated T bili with LFTs most likely due to having liver congestion due to elevated BNP : most likely due to liver congestion/fatty infiltration. LFTs are trending down #Hx of [place] s/p stent. #elevated TSH, and FT4, as per chemist pharmaceutical most likely sick euthyroid. Follow with as an outpatient. #DM ss with coverage DVT Px: HEparin sq Visit type - Emergency Visit Emergency Visit: Yes ED Registration Date: 07/01/18 Care time: The patient presented to the Emergency Department on the above date and was hospitalized for further evaluation of their emergent condition. - New Patient This patient is new to me today: No - Critical Care Critical Care patient: No - Discharge Referral Referred to [facility] No
[2018-07-05] MEDS: ATORVASTATIN CA 10 MG TABLET (FP) PO SCH (21:59)
[2018-07-06] MEDS: INSULIN SLIDING SCALE (NOVOLOG) 1 VIAL SQ SCH ×4 (06:40→21:31)
[2018-07-06] MEDS: HEPARIN NA (PORCINE) 5,000 UNITS/ML 1ML VIAL SQ SCH (06:40)
[2018-07-06 08:43] LABS: BASO % 0.1 % (0-2.0); EOS % 0.2 % (0-4.5); HEMATOCRIT 40.8 % (35.4-49); HEMOGLOBIN 12.8 GM/dL (11.7-16.9); LYMPH % 25.8 % (8-40); MCH 29.5 pg (25.7-33.7); MCHC 31.4 g/dl (32.0-35.9); MEAN CELL VOLUME 94.1 fl (80-96); MEAN PLT VOLUME 8.3 fl (7.5-11.1); MONO % 6.8 % (3.8-10.2); NEUT % 67.1 % (42.8-82.8); PLATELET COUNT 193 K/MM3 (134-434); RBC 4.34 M/mm3 (4.00-5.60); RDW 16.4 % (11.9-15.9); WHITE BLOOD COUNT 6.4 K/mm3 (4.0-10.0)
[2018-07-06] MEDS ORDERED: SODIUM CHLORIDE 250 ML IV STA (08:46)
[2018-07-06 09:00] LABS: ALBUMIN 3.2 g/dl (3.4-5.0); BILIRUBIN,TOTAL 2.4 mg/dL (0.2-1); CALCIUM 8.9 mg/dL (8.5-10.1); CREATININE 2.6 mg/dL (0.55-1.3); POTASSIUM 5.4 mmol/L (3.5-5.1); TOT PROT 6.2 g/dl (6.4-8.2)
[2018-07-06] MEDS ORDERED: SODIUM POLYSTYRENE SULFONATE 15 GM/60 ML BOTTLE PO ONE ×2 (09:09→14:00)
[2018-07-06] MEDS ORDERED: SENNOSIDES 8.6MG TABLET (FP) PO ONE (09:14)
[2018-07-06 09:47] LABS: INR 1.79 (0.83-1.09); PROTHROMBIN TIME (PATIENT) 21.2 SEC (9.7-13.0)
[2018-07-06] MEDS: FEBUXOSTAT 40 MG TAB PO SCH (10:03)
[2018-07-06] MEDS: DOCUSATE SODIUM 100 MG CAPSULE (FP) PO SCH ×2 (10:03→21:31)
[2018-07-06] MEDS: SODIUM BICARBONATE 650 MG TABLET PO SCH ×2 (10:03→21:31)
[2018-07-06] MEDS: BUDESONIDE/FORMETEROL FUMARATE 160/4.5 mcg INHALER IH SCH ×2 (10:04→21:30)
[2018-07-06] MEDS: SODIUM CHLORIDE 1,000 ML IV SCH ×2 (10:08→12:54)
[2018-07-06] MEDS: ASPIRIN 81 MG CHEWABLE TABLETS PO SCH (10:10)
[2018-07-06] MEDS: CARVEDILOL 3.125 MG TABLET (FP) PO SCH (10:10)
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
--- NOTE | 2018-07-06 13:06 | PN ---
Physical Exam: SUBJECTIVE: Patient seen and examined at bedside. no complaints. denies cp, sob , fever, n/v/d. OBJECTIVE: Vital Signs Period Temp Pulse Resp BP Sys/Robbins Pulse Ox Last 24 Hr 96.6 F-98.2 F 79-86 18-20 90-133/64-75 GENERAL:AOX2-3, in no acute distress. HEAD: Normal with no signs of trauma. EYES: Pupils equal, round and reactive to light, extraocular movements intact EARS, NOSE, THROAT: Moist mucous membranes. LUNGS: CTAB HEART: RRR, no murmurs heard, defribilator in LUQ ABDOMEN: Soft, NTND, normoactive bowel sounds, no guarding, no rebound, no masses. larger ring like purple ecchymosis in umbilical region along w/ petechia along abdomen, chest and possibly legs LOWER EXTREMITIES: 2+ pulses, warm, well-perfused. No calf tenderness. No peripheral edema. NEUROLOGICAL: Cranial nerves II-XII intact. PSYCHIATRIC: Cooperative. Good eye contact. Appropriate mood and affect. SKIN: Warm, dry, normal turgor, no rashes or lesions noted, normal capillary refill. Laboratory Results - last 24 hr 07/05/18 07/05/18 07/06/18 17:23 21:04 06:06 WBC RBC Hgb Hct MCV MCH MCHC RDW Plt Count MPV Absolute Neuts (auto) Neutrophils % Lymphocytes % Monocytes % Eosinophils % Basophils % Nucleated RBC % Retic Count PT with INR INR PTT (Actin FS) Sodium Potassium Chloride Carbon Dioxide Anion Gap BUN Creatinine Est GFR (CKD-EPI)AfAm Est GFR (CKD-EPI)NonAf POC Glucometer 130 140 139 Random Glucose Calcium Total Bilirubin AST ALT Alkaline Phosphatase LD Total Total Protein Albumin TSH 07/06/18 07/06/18 07/06/18 07:20 07:20 07:20 WBC 6.4 RBC 4.34 Hgb 12.8 Hct 40.8 MCV 94.1 MCH 29.5 MCHC 31.4 L RDW 16.4 H Plt Count 193 MPV 8.3 Absolute Neuts (auto) 4.3 Neutrophils % 67.1 Lymphocytes % 25.8 Monocytes % 6.8 Eosinophils % 0.2 Basophils % 0.1 Nucleated RBC % 1 H Retic Count 2.78 H PT with INR INR PTT (Actin FS) Sodium 139 Potassium 5.4 H Chloride 108 H Carbon Dioxide 19 L Anion Gap 12 BUN 94 H Creatinine 2.6 H Est GFR (CKD-EPI)AfAm 26.57 Est GFR (CKD-EPI)NonAf 22.93 POC Glucometer Random Glucose 137 H Calcium 8.9 Total Bilirubin 2.4 H AST 77 H ALT 138 H Alkaline Phosphatase 69 LD Total 228 Total Protein 6.2 L Albumin 3.2 L TSH 4.06 H D 07/06/18 09:00 WBC RBC Hgb Hct MCV MCH MCHC RDW Plt Count MPV Absolute Neuts (auto) Neutrophils % Lymphocytes % Monocytes % Eosinophils % Basophils % Nucleated RBC % Retic Count PT with INR 21.20 H INR 1.79 H PTT (Actin FS) 37.0 H Sodium Potassium Chloride Carbon Dioxide Anion Gap BUN Creatinine Est GFR (CKD-EPI)AfAm Est GFR (CKD-EPI)NonAf POC Glucometer Random Glucose Calcium Total Bilirubin AST ALT Alkaline Phosphatase LD Total Total Protein Albumin TSH Active Medications Generic Name Dose Route Start Last Admin Trade Name Freq PRN Reason Stop Dose Admin Aspirin 81 mg 07/01/18 10:00 07/06/18 10:10 Asa - PO Not Given DAILY [facility] Atorvastatin Calcium 10 mg 07/01/18 22:00 07/05/18 21:59 Lipitor - PO 10 mg HS [facility] Administration Budesonide/Formoterol Fumarate 2 puff 07/01/18 10:00 07/06/18 10:04 Symbicort 160/4.5mcg - IH 2 puff BID [facility] Administration Carvedilol 3.125 mg 07/01/18 10:00 07/06/18 10:10 Coreg - PO Not Given BID [facility] Cholecalciferol 5,000 unit 07/01/18 01:30 Vitamin D3 - PO WEEKLY [facility] Docusate Sodium 100 mg 07/06/18 10:00 07/06/18 10:03 Colace - PO 100 mg BID [facility] Administration Febuxostat 40 mg 07/01/18 12:00 07/06/18 10:03 Uloric - PO 40 mg DAILY [facility] Administration Heparin Sodium (Porcine) 5,000 unit 07/01/18 22:00 07/06/18 06:40 Heparin - SQ Not Given TID [facility] Sodium Chloride 1,000 mls @ 42 mls/hr 07/05/18 12:45 07/06/18 12:54 Normal Saline - IV Not Given ASDIR [facility] Insulin Aspart 1 vial 07/01/18 07:00 07/06/18 12:53 Novolog Vial Sliding Scale - SQ Not Given ACHS [facility] Protocol Sodium Bicarbonate 650 mg 07/03/18 10:00 07/06/18 10:03 Sodium Bicarbonate - PO 650 mg BID [facility] Administration ASSESSMENT/PLAN: 77 y/o M PMH HTN, HLD, LV dysfunction/CHF, CKD 4, CAD s/p stents, ME s/p defribilator, gout, DM, COPD due to smoking history?, who presented from Dr. Hood office with Weakness, poor PO intake, hypotension and found to have increasing confusion and ELLIOTT. There appears to have been a miscommunication between what bobbin winder tender recommended and what the daughter gave. It appears as though the daughter continued to give the Lasix even though the patient was not supposed to be doing so. daughter has been concerned for a while about her father having dementia, on last admission pt was referred to Dr Munoz for an outpt dementia eval #? Metabolic encephalopathy vs suspected worsening dementia, poor PO intake -Consulted NeurologyTammy: suspects underlying Alzheimer vs frontotemporal dementia with superimposed metabolic encephalopathy with generalized weakness, poor cardiac status likely contributory as well. per neuro, no focality to suggest new cerebral ischemic event, no evidence of seizures, meningitis, encephalitis etc -Dr. Connolly consulted -CT head w/o acute changes -hold ACEi and diuretics for now -NS at 42cc /hr and encourage PO hydration -ammonia nl -cont to hold gabapentin to avoid worsening confusion, neuro recs appreciated -Vit B12, Folic acid elevated -RPR neg -psych consulted -solar photovoltaic systems engineer consult #new petechia and abdominal echymosis w/ elevated INR 1.79 (not on AC) - unclear etiology. plt are nl/stable. H/H remains stable at baseline. no obvious source of bleed. spoke w/ nephro elevated BUN unlikely source as not elevated enough, especially for his BMI. -heme/onc consult -corrected retic index is low indicating inadequate marrow response -f/u CT A/P to r/o internal bleed -LDH nl -hold ASA and SQH #ELLIOTT on CKD stage4 2/2 volume depletion, baseline Cr is 1.8-2 - improving -UA neg -monitor BMP -FeUrea was 38.5% indicating slight tubular dysfunction -hold ACEi and diuretics for now -NS at 42cc /hr and encourage PO hydration -nephro on board -c/w PO bicarbonte for metabolic acidosis #CHF with Severe LV dysfunction: not likely an acute issue -EKG was essentially unchanged since prior -cardio consult, Evy for optimization of HF meds, pt noted here w/ slightly low BP -continue carvedilol -hold ASA in setting of petechia and echymosis #Acute Transaminitis w/ elevated INR 1.79: Unclear etiology Given the information that we have, could be a result of hypotension in the setting of volume depletion. The patient is not on any significant hepatotoxic medications. improving w/ IVF -hepatitis panel unremarkable -Ultrasound of the RUQ showed fatty infiltration of the liver -will hold lipitor until resolves -cont to trend LFTs, if continues to stay elevated will consider an MRCP -elevated bili. direct bili 1.6 #Hx of gout with elevated Uric acid - no signs of gout c/w home febuxostat #elevated TSH, and FT4, -as per slate worker most likely sick euthyroid. -will follow with as an outpatient, for further w/u #DM: chronic -hold diabetic meds -ISS -BGM ACHS #CAD: chronic --hold ASA in setting of petechia and echymosis #FEN -NS at 42cc /hr and encourage PO hydration -replete prn -diabetic/sodium diet #Prophylaxis -hold SQH tid w/ petechia -scd b/l #Dispo -med surg Visit type - Emergency Visit Emergency Visit: Yes ED Registration Date: 07/01/18 Care time: The patient presented to the Emergency Department on the above date and was hospitalized for further evaluation of their emergent condition. - New Patient This patient is new to me today: Yes Date on this admission: 07/06/18 - Critical Care Critical Care patient: No
--- NOTE | 2018-07-06 16:03 | PN ---
Progress Note (short form) - Note Progress Note: Renal follow up for ELLIOTT Pt seen and examined at the bedside awake and alert but confused oriented x 1 states that he feels cold no N/V/D Vital Signs Temperature 97.4 F L 07/06/18 09:33 Pulse Rate 86 07/06/18 09:33 Respiratory Rate 18 07/06/18 09:33 Blood Pressure 107/75 07/06/18 09:33 O2 Sat by Pulse Oximetry (%) 94 L 07/02/18 21:00 Intake & Output 07/03/18 07/04/18 07/05/18 07/06/18 23:59 23:59 23:59 23:59 Intake Total 8370 670 0661 184 Output Total 1000 200 200 Balance 710 -100 1005 -16 NAD Neck supple, no JVD RRR, no M/R CTA, no rales soft NT/ND no LE edmea, clubbing or cyanosis no bladder distension CBC, BMP 07/06/18 07:20 07/06/18 07:20 Current Medications Aspirin (Asa -) 81 mg PO DAILY [facility] Last Admin: 07/06/18 10:10 Dose: Not Given Atorvastatin Calcium (Lipitor -) 10 mg PO HS [facility] Last Admin: 07/05/18 21:59 Dose: 10 mg Budesonide/Formoterol Fumarate (Symbicort 160/4.5mcg -) 2 puff IH BID [facility] Last Admin: 07/06/18 10:04 Dose: 2 puff Carvedilol (Coreg -) 3.125 mg PO BID [facility] Last Admin: 07/06/18 10:10 Dose: Not Given Cholecalciferol (Vitamin D3 -) 5,000 unit PO WEEKLY [facility] Docusate Sodium (Colace -) 100 mg PO BID [facility] Last Admin: 07/06/18 10:03 Dose: 100 mg Febuxostat (Uloric -) 40 mg PO DAILY [facility] Last Admin: 07/06/18 10:03 Dose: 40 mg Heparin Sodium (Porcine) (Heparin -) 5,000 unit SQ TID [facility] Last Admin: 07/06/18 06:40 Dose: Not Given Sodium Chloride (Normal Saline -) 1,000 mls @ 42 mls/hr IV ASDIR [facility] Last Admin: 07/06/18 12:54 Dose: Not Given Insulin Aspart (Novolog Vial Sliding Scale -) 1 vial SQ ACHS [facility]; Protocol Last Admin: 07/06/18 12:53 Dose: Not Given Sodium Bicarbonate (Sodium Bicarbonate -) 650 mg PO BID [facility] Last Admin: 07/06/18 10:03 Dose: 650 mg 77 year old gentleman with hx of CKD stage 3 (baseline Cr 1.8-2), CAD s/p PCI, CHF with very low LVEF, hyperlipidemia, hypertension, AICD placement, DM, COPD who presented from Dr. Connolly's office with hypotension and found to have increasing confusion and ELLIOTT. #ELLIOTT on CKD due to volume depletion #Hypotension #Altered mental status r/o dementia vs. other cause #DM #Hypertension #CHF #metabolic acidosis with respiratory compensation Renal function essentially unchanged, BUN now in 90's however overall clinical picture is not consistent with uremia no acute need for CUSTOMER ADVOCACY MANAGER low potassium diet Neurology follow up noted will hold off any further IVF as CT of the chest shows small effusions has poor oral intake at this time hold ACEi and diuretics for now as no edema or volume overload start oral bicarbonate for metabolic acidosis will likely need placement in assisted living facility Thank you Will follow Mikhail Ling DO
--- NOTE | 2018-07-06 17:31 | PN ---
Teaching Attending Note Name of Resident: Elmo Wheeler ATTENDING PHYSICIAN STATEMENT I saw and evaluated the patient. I reviewed the resident's note and discussed the case with the resident. I agree with the resident's findings and plan as documented. SUBJECTIVE: Patient is better today , oriented x1 , less confused and cooperative. OBJECTIVE: Vital Signs Temperature 97.4 F L 07/06/18 09:33 Pulse Rate 86 07/06/18 09:33 Respiratory Rate 18 07/06/18 09:33 Blood Pressure 107/75 07/06/18 09:33 O2 Sat by Pulse Oximetry (%) 94 L 07/02/18 21:00 GENERAL: The patient is awake, alert, but confused , in no acute distress. HEAD: Normal with no signs of trauma. EYES: PERRL, extraocular movements intact, sclera anicteric, conjunctiva clear. ENT: Ears normal, oropharynx clear without exudates, moist mucous membranes. NECK: Trachea midline, full range of motion, supple. LUNGS: decreased BS BL, no wheezes, no crackles, no accessory muscle use. HEART: Regular rate and rhythm, S1, S2 without murmur, rub or gallop. ABDOMEN: Soft, nontender, nondistended, normoactive bowel sounds, no guarding, no rebound, no hepatosplenomegaly, no masses. periumbilical sq bleed EXTREMITIES: 2+ pulses, warm, well-perfused, no edema. NEUROLOGICAL: Cranial nerves II through XII grossly intact. Normal speech, gait not observed. PSYCH:confused SKIN: Warm, dry, normal turgor, no rashes or lesions noted CBCD WBC 6.4 K/mm3 (4.0-10.0) 07/06/18 07:20 RBC 4.34 M/mm3 (4.00-5.60) 07/06/18 07:20 Hgb 12.8 GM/dL (11.7-16.9) 07/06/18 07:20 Hct 40.8 % (35.4-49) 07/06/18 07:20 MCV 94.1 fl (80-96) 07/06/18 07:20 MCHC 31.4 g/dl (32.0-35.9) L 07/06/18 07:20 RDW 16.4 % (11.9-15.9) H 07/06/18 07:20 Plt Count 193 K/MM3 (134-434) 07/06/18 07:20 MPV 8.3 fl (7.5-11.1) 07/06/18 07:20 CMP Sodium 139 mmol/L (136-145) 07/06/18 07:20 Potassium 5.4 mmol/L (3.5-5.1) H 07/06/18 07:20 Chloride 108 mmol/L (98-107) H 07/06/18 07:20 Carbon Dioxide 19 mmol/L (21-32) L 07/06/18 07:20 Anion Gap 12 MMOL/L (8-16) 07/06/18 07:20 BUN 94 mg/dL (7-18) H 07/06/18 07:20 Creatinine 2.6 mg/dL (0.55-1.3) H 07/06/18 07:20 Random Glucose 137 mg/dL (74-106) H 07/06/18 07:20 Calcium 8.9 mg/dL (8.5-10.1) 07/06/18 07:20 Total Bilirubin 2.4 mg/dL (0.2-1) H 07/06/18 07:20 AST 77 U/L (15-37) H 07/06/18 07:20 ALT 138 U/L (13-61) H 07/06/18 07:20 Alkaline Phosphatase 69 U/L (45-117) 07/06/18 07:20 Total Protein 6.2 g/dl (6.4-8.2) L 07/06/18 07:20 Albumin 3.2 g/dl (3.4-5.0) L 07/06/18 07:20 CARDIAC ENZYMES Creatine Kinase 160 U/L (26-308) 06/30/18 21:30 Troponin I 0.02 ng/ml (0.00-0.05) 07/01/18 11:25 Home Medications Medication Instructions Recorded Aspirin [ASA -] 81 mg PO DAILY 01/02/17 Cholecalciferol (Vitamin D3) 5,000 unit PO WEEKLY 01/02/17 [Vitamin D -] Febuxostat [Uloric] 40 mg PO DAILY 01/02/17 Gabapentin 300 mg PO DAILY 01/02/17 Glimepiride [Amaryl] 2 mg PO DAILY 01/02/17 Lipitor 10 mg PO HS 01/02/17 Carvedilol [Coreg -] 3.125 mg PO BID 06/17/18 Budesonide/Formeterol Fumarate 2 puff IH BID #1 inhaler 06/21/18 [SYMBICORT 160/4.5mcg -] Current Medications Generic Name Dose Route Start Last Admin Trade Name Mariela PRN Reason Stop Dose Admin Aspirin 81 mg 07/01/18 10:00 07/06/18 10:10 Asa - PO Not Given DAILY [facility] Atorvastatin Calcium 10 mg 07/01/18 22:00 07/05/18 21:59 Lipitor - PO 10 mg HS [facility] Administration Budesonide/Formoterol Fumarate 2 puff 07/01/18 10:00 07/06/18 10:04 Symbicort 160/4.5mcg - IH 2 puff BID [facility] Administration Carvedilol 3.125 mg 07/01/18 10:00 07/06/18 10:10 Coreg - PO Not Given BID [facility] Cholecalciferol 5,000 unit 07/01/18 01:30 Vitamin D3 - PO WEEKLY [facility] Docusate Sodium 100 mg 07/06/18 10:00 07/06/18 10:03 Colace - PO 100 mg BID [facility] Administration Febuxostat 40 mg 07/01/18 12:00 07/06/18 10:03 Uloric - PO 40 mg DAILY [facility] Administration Heparin Sodium (Porcine) 5,000 unit 07/01/18 22:00 07/06/18 06:40 Heparin - SQ Not Given TID [facility] Sodium Chloride 1,000 mls @ 42 mls/hr 07/05/18 12:45 07/06/18 12:54 Normal Saline - IV Not Given ASDIR [facility] Insulin Aspart 1 vial 07/01/18 07:00 07/06/18 12:53 Novolog Vial Sliding Scale - SQ Not Given ACHS [facility] Protocol Sodium Bicarbonate 650 mg 07/03/18 10:00 07/06/18 10:03 Sodium Bicarbonate - PO 650 mg BID [facility] Administration An echocardiogram done a week ago showed severe global hypokinesis and severe left ventricular dysfunction. EJF 15-20% Head CT: no acute pathology ABdominal CT/Pelvis orederedz; no acute pathology ASSESSMENT AND PLAN: Patient is a 77yo male with PMHx of hypertension, hyperlipidemia, left ventricular dysfunction/congestive heart failure, chronic kidney disease stage 4 , Coronary artery disease s/p stenting, [place] S/P defibrillator placement, gout, diabetes, COPD , presented to ED. for having worsening generalized weakness and poor oral intake. Also was found to be hypotensive at his doctor's office , was sent to the emergency room for further evaluation . # Change of mental status with progression cannot r/o underlying dementia, seen by neuro today , patient is in out of confusion. oriented x 1 today, yesterday oriented x0, presented with generalized weakness. MRI is not an option since has a PPM/defibrilator, CT is negative # Periumbilical sq. bleed; with elevated INR, lower extremity Petechiae , possible factor 7 deficeincy , cesar get hem. involved # HYpotension in 90:s : will change Coreg to once a day , discussed with agrees with the plan for now, will monitor. #ELLIOTT on CKD; Baselin is 1.8-->2.0--> 2.6 -->2.3-->2.3--2.7-->2.[address] Hood , patient is at baseline , will continue gentle hydration , nephro consult appreciated dr Ling , hold lasix and vasotec , started on sodium bicarb. # Hyperkalemia: monitor for now. # Hx of copd continue home meds. ## Hx of gout with elevated Uric acid continue Uloric daily #elevated T bili with LFTs most likely due to having liver congestion due to elevated BNP : most likely due to liver congestion/fatty infiltration. LFTs are trending down #Hx of [place] s/p stent. #elevated TSH, and FT4, as per cardiopulmonary supervisor most likely sick euthyroid. Follow with as an outpatient. #DM ss with coverage DVT Px: HEparin sq
--- NOTE | 2018-07-06 17:52 | CONSULT ---
Consultation: REQUESTING PROVIDER: CONSULT REQUEST: We have been asked to medically evaluate this patient for elevated IRN . HISTORY OF PRESENT ILLNESS: This is a 77 yo M with PMH of HTN, HLD, HFREF s/p defibrillator, CKD stake 4, CAD+ [place] s/p pci stent, gout, DM, COPD, who presented due to failure to thrive. Admitted due to ELLIOTT and transaminitis in setting of volume depletion. Hematology consulted because patient developed abdominal petechiae and was noted to have an elevated INR of 1.79, PTT 37. On review of records, INR has been elevated in 2012 1.17. Patient is a very poor historian, states he has had similar "bruising" episodes in the past but unable to elaborate. refuses to answer further questions. REVIEW OF SYSTEMS: refuses to comply PHYSICAL EXAMINATION Vital Signs - 24 hr 07/05/18 07/05/18 07/06/18 19:49 21:50 06:00 Temperature 96.6 F L 97.4 F L 98.2 F Pulse Rate 80 79 80 Respiratory 20 20 18 Rate Blood Pressure 98/64 110/65 90/64 07/06/18 07/06/18 09:00 09:33 Temperature 97.4 F L Pulse Rate 86 Respiratory 18 18 Rate Blood Pressure 107/75 GENERAL: Awake, alert, refuses to answer questions HEAD: Normal with no signs of trauma. EYES: sclera anicteric, conjunctiva clear. No lid lag. EARS, NOSE, THROAT: Moist mucous membranes. NECK: refuses LUNGS: Breath sounds equal, clear to auscultation bilaterally HEART: Regular rate and rhythm, normal S1 and S2 ABDOMEN: diffuse abdominal petechiae, no palpable purpura, Soft, nontender, not distended, normoactive bowel sounds, no guarding, no rebound MUSCULOSKELETAL: refuses Testicular: refuses NEUROLOGICAL: refuses PSYCHIATRIC: dose not cooperate Laboratory Results - last 24 hr 07/05/18 07/06/18 07/06/18 21:04 06:06 07:20 WBC RBC Hgb Hct MCV MCH MCHC RDW Plt Count MPV Absolute Neuts (auto) Neutrophils % Lymphocytes % Monocytes % Eosinophils % Basophils % Nucleated RBC % Retic Count PT with INR INR PTT (Actin FS) Sodium 139 Potassium 5.4 H Chloride 108 H Carbon Dioxide 19 L Anion Gap 12 BUN 94 H Creatinine 2.6 H Est GFR (CKD-EPI)AfAm 26.57 Est GFR (CKD-EPI)NonAf 22.93 POC Glucometer 140 139 Random Glucose 137 H Calcium 8.9 Total Bilirubin 2.4 H AST 77 H ALT 138 H Alkaline Phosphatase 69 LD Total 228 Total Protein 6.2 L Albumin 3.2 L TSH 4.06 H D 07/06/18 07/06/18 07/06/18 07:20 07:20 09:00 WBC 6.4 RBC 4.34 Hgb 12.8 Hct 40.8 MCV 94.1 MCH 29.5 MCHC 31.4 L RDW 16.4 H Plt Count 193 MPV 8.3 Absolute Neuts (auto) 4.3 Neutrophils % 67.1 Lymphocytes % 25.8 Monocytes % 6.8 Eosinophils % 0.2 Basophils % 0.1 Nucleated RBC % 1 H Retic Count 2.78 H PT with INR 21.20 H INR 1.79 H PTT (Actin FS) 37.0 H Sodium Potassium Chloride Carbon Dioxide Anion Gap BUN Creatinine Est GFR (CKD-EPI)AfAm Est GFR (CKD-EPI)NonAf POC Glucometer Random Glucose Calcium Total Bilirubin AST ALT Alkaline Phosphatase LD Total Total Protein Albumin TSH 07/06/18 11:43 WBC RBC Hgb Hct MCV MCH MCHC RDW Plt Count MPV Absolute Neuts (auto) Neutrophils % Lymphocytes % Monocytes % Eosinophils % Basophils % Nucleated RBC % Retic Count PT with INR INR PTT (Actin FS) Sodium Potassium Chloride Carbon Dioxide Anion Gap BUN Creatinine Est GFR (CKD-EPI)AfAm Est GFR (CKD-EPI)NonAf POC Glucometer 139 Random Glucose Calcium Total Bilirubin AST ALT Alkaline Phosphatase LD Total Total Protein Albumin TSH Active Medications Generic Name Dose Route Start Last Admin Trade Name Freq PRN Reason Stop Dose Admin Aspirin 81 mg 07/01/18 10:00 07/06/18 10:10 Asa - PO Not Given DAILY [facility] Atorvastatin Calcium 10 mg 07/01/18 22:00 07/05/18 21:59 Lipitor - PO 10 mg HS [facility] Administration Budesonide/Formoterol Fumarate 2 puff 07/01/18 10:00 07/06/18 10:04 Symbicort 160/4.5mcg - IH 2 puff BID [facility] Administration Carvedilol 3.125 mg 07/01/18 10:00 07/06/18 10:10 Coreg - PO Not Given BID [facility] Cholecalciferol 5,000 unit 07/01/18 01:30 Vitamin D3 - PO WEEKLY [facility] Docusate Sodium 100 mg 07/06/18 10:00 07/06/18 10:03 Colace - PO 100 mg BID [facility] Administration Febuxostat 40 mg 07/01/18 12:00 07/06/18 10:03 Uloric - PO 40 mg DAILY [facility] Administration Heparin Sodium (Porcine) 5,000 unit 07/01/18 22:00 07/06/18 06:40 Heparin - SQ Not Given TID [facility] Sodium Chloride 1,000 mls @ 42 mls/hr 07/05/18 12:45 07/06/18 12:54 Normal Saline - IV Not Given ASDIR [facility] Insulin Aspart 1 vial 07/01/18 07:00 07/06/18 12:53 Novolog Vial Sliding Scale - SQ Not Given ACHS [facility] Protocol Sodium Bicarbonate 650 mg 07/03/18 10:00 07/06/18 10:03 Sodium Bicarbonate - PO 650 mg BID [facility] Administration ASSESSMENT/PLAN: This is a 77 yo M with PMH of HTN, HLD, HFREF s/p defibrillator, CKD stake 4, CAD+ [place] s/p pci stent, gout, DM, COPD, who presented due to failure to thrive. Admitted due to ELLIOTT and transaminitis in setting of volume depletion. elevated INR and perechieae suggestive of platelet disfunction transaminitis elliott on ckd stage 4 HFREF CAD DM COPD HTN HLD gout -liver us fatty liver vs hepatocellular disease -platelet disfunction multifactorial, likely due to uremia (bun 90's), asa, liver disease, vit K depletion due to poor po intake/malabsorbtion -replete vit K 1 mg sq -vasculitis less likley, workup p/d. -hold asa, sq hep. -daily INR Dispo: We will continue to follow the patient. Thank you for this consultative opportunity. Problem List - Problems (1) Elevated INR Code(s): R79.1 - ABNORMAL COAGULATION PROFILE (2) Petechiae Code(s): R23.3 - SPONTANEOUS ECCHYMOSES (3) Petechial rash Code(s): R23.3 - SPONTANEOUS ECCHYMOSES (4) ELLIOTT (acute kidney injury) Code(s): N17.9 - ACUTE KIDNEY FAILURE, UNSPECIFIED (5) Elevated transaminase level Code(s): R74.0 - NONSPEC ELEV OF LEVELS OF TRANSAMNS & LACTIC ACID DEHYDRGNSE (6) Weakness Code(s): R53.1 - WEAKNESS (7) Acute on chronic renal insufficiency Code(s): N28.9 - DISORDER OF KIDNEY AND URETER, UNSPECIFIED; N18.9 - CHRONIC KIDNEY DISEASE, UNSPECIFIED Visit type - Emergency Visit Emergency Visit: Yes ED Registration Date: 07/01/18 Care time: The patient presented to the Emergency Department on the above date and was hospitalized for further evaluation of their emergent condition. - New Patient This patient is new to me today: Yes Date on this admission: 07/06/18 - Critical Care Critical Care patient: No
[2018-07-06] MEDS ORDERED: PHYTONADIONE 10 MG/1 ML AMP SQ ONE (19:00)
--- NOTE | 2018-07-06 19:10 | PN ---
Teaching Attending Note Name of Resident: Melissa Montana ATTENDING PHYSICIAN STATEMENT I saw and evaluated the patient. I reviewed the resident's note and discussed the case with the resident. I agree with the resident's findings and plan as documented. SUBJECTIVE: Patient seen and examined No history is obtainable Multiple co-morbid medical problems as noted Subcutaneous abdominal wall bleeding at site of injections On ASA, heparin.- now discontinued LFT abnormalities with fatty liver, congestion 08/03/11---P.T-12.6/INR--1.17. / PTT- 28.5. Not knowing circumstances at that time with normal PTT and mild abnormal PT- this raises possibility of Factor VII deficiency (acquired) coumadin, poor nutrition, antibiotics, etc acquired etiologies vs. inherited F. VIII deficiency 02/27/13 P.T.12.6/ INR--1.15/ PTT33.2 Once again with normal PTT and mild increase in P.T. 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 Currently , in the setting of liver disease,--both P.T. and P.TT abnormal ---> giving mild coagulopathy. 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 Will do mixing studies, LAC OBJECTIVE: ASSESSMENT AND PLAN:
--- NOTE | 2018-07-06 23:48 | PN ---
Progress Note, Physician Chief Complaint: Pr lying in bed, supine. He mumbles replies, and appears to be confused. Reportedly with poor appetite. History of Present Illness: Mr. Toth is a 77 YO black man with a PMH of HTN, HLD, CKD, CAD s/p stents, [place] s/p defibrillator, gout, COPD, hypothyroidism, and CHF who presents to the ER sent in by Dr. Connolly with generalized weakness, poor appetite, and after becoming hypotensive while in his office. Patient has had two recent admissions for dyspnea on exertion to rule out PE in this ED. Patient has been followed up by a manufacturers service representative. Denies fever, chills, cp, N/V/C/D or urinary symptoms. Allergies: NKDA Social Hx: Former smoker. Denies drug or alcohol use. PCP: Dr. Holden Renal: Dr. Yane Connolly - Current Medication List Current Medications: Active Medications Aspirin (Asa -) 81 mg PO DAILY [facility] Last Admin: 07/06/18 10:10 Dose: Not Given Atorvastatin Calcium (Lipitor -) 10 mg PO HS [facility] Last Admin: 07/05/18 21:59 Dose: 10 mg Budesonide/Formoterol Fumarate (Symbicort 160/4.5mcg -) 2 puff IH BID [facility] Last Admin: 07/06/18 21:30 Dose: 2 puff Carvedilol (Coreg -) 3.125 mg PO DAILY [facility] Cholecalciferol (Vitamin D3 -) 5,000 unit PO WEEKLY [facility] Docusate Sodium (Colace -) 100 mg PO BID [facility] Last Admin: 07/06/18 21:31 Dose: 100 mg Febuxostat (Uloric -) 40 mg PO DAILY [facility] Last Admin: 07/06/18 10:03 Dose: 40 mg Heparin Sodium (Porcine) (Heparin -) 5,000 unit SQ TID [facility] Last Admin: 07/06/18 06:40 Dose: Not Given Sodium Chloride (Normal Saline -) 1,000 mls @ 42 mls/hr IV ASDIR [facility] Last Admin: 07/06/18 12:54 Dose: Not Given Insulin Aspart (Novolog Vial Sliding Scale -) 1 vial SQ ACHS [facility]; Protocol Last Admin: 07/06/18 21:31 Dose: Not Given Sodium Bicarbonate (Sodium Bicarbonate -) 650 mg PO BID [facility] Last Admin: 07/06/18 21:31 Dose: 650 mg - Objective Vital Signs: Vital Signs Temperature 96.7 F L 07/06/18 20:00 Pulse Rate 90 07/06/18 20:00 Respiratory Rate 20 07/06/18 20:00 Blood Pressure 101/65 07/06/18 20:00 O2 Sat by Pulse Oximetry (%) 94 L 07/02/18 21:00 Constitutional: Yes: Other Eyes: Yes: WNL HENT: Yes: WNL Neck: Yes: WNL Cardiovascular: Yes: S1, S2 Respiratory: Yes: Regular Gastrointestinal: Yes: Soft ...Rectal Exam: Yes: Deferred Genitourinary: No: Anuria Breast(s): Yes: WNL Musculoskeletal: Yes: Muscle Weakness Extremities: Yes: Cool Edema: No Peripheral Pulses WNL: Yes Integumentary: Yes: WNL Neurological: Yes: Confusion, Weakness Psychiatric: Yes: Other Labs: CBC, BMP 07/06/18 07:20 07/06/18 07:20 INR, PTT INR 1.79 (0.83-1.09) H 07/06/18 09:00 Laboratory Results - last 24 hr 07/06/18 07/06/18 07/06/18 06:06 07:20 07:20 WBC 6.4 RBC 4.34 Hgb 12.8 Hct 40.8 MCV 94.1 MCH 29.5 MCHC 31.4 L RDW 16.4 H Plt Count 193 MPV 8.3 Absolute Neuts (auto) 4.3 Neutrophils % 67.1 Lymphocytes % 25.8 Monocytes % 6.8 Eosinophils % 0.2 Basophils % 0.1 Nucleated RBC % 1 H Retic Count PT with INR INR PTT (Actin FS) Sodium 139 Potassium 5.4 H Chloride 108 H Carbon Dioxide 19 L Anion Gap 12 BUN 94 H Creatinine 2.6 H Est GFR (CKD-EPI)AfAm 26.57 Est GFR (CKD-EPI)NonAf 22.93 POC Glucometer 139 Random Glucose 137 H Calcium 8.9 Total Bilirubin 2.4 H AST 77 H ALT 138 H Alkaline Phosphatase 69 LD Total 228 Total Protein 6.2 L Albumin 3.2 L TSH 4.06 H D 07/06/18 07/06/18 07/06/18 07:20 09:00 11:43 WBC RBC Hgb Hct MCV MCH MCHC RDW Plt Count MPV Absolute Neuts (auto) Neutrophils % Lymphocytes % Monocytes % Eosinophils % Basophils % Nucleated RBC % Retic Count 2.78 H PT with INR 21.20 H INR 1.79 H PTT (Actin FS) 37.0 H Sodium Potassium Chloride Carbon Dioxide Anion Gap BUN Creatinine Est GFR (CKD-EPI)AfAm Est GFR (CKD-EPI)NonAf POC Glucometer 139 Random Glucose Calcium Total Bilirubin AST ALT Alkaline Phosphatase LD Total Total Protein Albumin TSH 07/06/18 07/06/18 18:07 20:52 WBC RBC Hgb Hct MCV MCH MCHC RDW Plt Count MPV Absolute Neuts (auto) Neutrophils % Lymphocytes % Monocytes % Eosinophils % Basophils % Nucleated RBC % Retic Count PT with INR INR PTT (Actin FS) Sodium Potassium Chloride Carbon Dioxide Anion Gap BUN Creatinine Est GFR (CKD-EPI)AfAm Est GFR (CKD-EPI)NonAf POC Glucometer 161 146 Random Glucose Calcium Total Bilirubin AST ALT Alkaline Phosphatase LD Total Total Protein Albumin TSH - ....Imaging Cat Scan: Image Reviewed (bilateral mild-moderate pleural effusions; mild ascites) Problem List - Problems (1) Acute on chronic systolic and diastolic heart failure, NYHA class 1 Assessment/Plan: Carvedilol reduced to 3.125 mg daily due to hypotension, ?change in mental status. ACEI, spironolactone held due to renal dysfunction. F/u BUN/Cr, electrolytes, daily wt, Is and Os. 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 (2) Weakness Code(s): R53.1 - WEAKNESS (3) Acute on chronic renal insufficiency Code(s): N28.9 - DISORDER OF KIDNEY AND URETER, UNSPECIFIED; N18.9 - CHRONIC KIDNEY DISEASE, UNSPECIFIED (4) COPD (chronic obstructive pulmonary disease) Code(s): J44.9 - CHRONIC OBSTRUCTIVE PULMONARY DISEASE, UNSPECIFIED (5) Gout Code(s): M10.9 - GOUT, UNSPECIFIED (6) History of heart artery stent Code(s): Z95.5 - PRESENCE OF CORONARY ANGIOPLASTY IMPLANT AND GRAFT (7) Hyperlipidemia Code(s): E78.5 - HYPERLIPIDEMIA, UNSPECIFIED (8) Hypertension Code(s): I10 - ESSENTIAL (PRIMARY) HYPERTENSION (9) ICD (implantable cardioverter-defibrillator) in place Code(s): Z95.810 - PRESENCE OF AUTOMATIC (IMPLANTABLE) CARDIAC DEFIBRILLATOR
[2018-07-07] MEDS: INSULIN SLIDING SCALE (NOVOLOG) 1 VIAL SQ SCH ×4 (06:28→21:55)
[2018-07-07 07:29] LABS: BASO % 0.2 % (0-2.0); EOS % 0.1 % (0-4.5); HEMATOCRIT 42.5 % (35.4-49); HEMOGLOBIN 13.4 GM/dL (11.7-16.9); LYMPH % 21.5 % (8-40); MCH 29.6 pg (25.7-33.7); MCHC 31.6 g/dl (32.0-35.9); MEAN CELL VOLUME 93.7 fl (80-96); MEAN PLT VOLUME 8.1 fl (7.5-11.1); MONO % 7.6 % (3.8-10.2); NEUT % 70.6 % (42.8-82.8); PLATELET COUNT 202 K/MM3 (134-434); RBC 4.54 M/mm3 (4.00-5.60); RDW 16.3 % (11.9-15.9); WHITE BLOOD COUNT 6.5 K/mm3 (4.0-10.0)
[2018-07-07 07:48] LABS: INR 1.78 (0.83-1.09); PROTHROMBIN TIME (PATIENT) 21.1 SEC (9.7-13.0)
[2018-07-07 08:25] LABS: ALBUMIN 3.5 g/dl (3.4-5.0); BILIRUBIN,TOTAL 2.6 mg/dL (0.2-1); CALCIUM 9.3 mg/dL (8.5-10.1); CREATININE 2.9 mg/dL (0.55-1.3); MAGNESIUM 3.3 mg/dL (1.8-2.4); PHOSPHOROUS 5.4 mg/dL (2.5-4.9); POTASSIUM 5.1 mmol/L (3.5-5.1)
[2018-07-07 09:44] LABS: URIC ACID 9.5 mg/dL (2.6-7.2)
[2018-07-07] MEDS: DOCUSATE SODIUM 100 MG CAPSULE (FP) PO SCH ×2 (10:42→21:54)
[2018-07-07] MEDS: CARVEDILOL 3.125 MG TABLET (FP) PO SCH (10:43)
[2018-07-07] MEDS: SODIUM BICARBONATE 650 MG TABLET PO SCH ×2 (10:43→21:54)
[2018-07-07] MEDS: FEBUXOSTAT 40 MG TAB PO SCH (10:44)
[2018-07-07] MEDS: BUDESONIDE/FORMETEROL FUMARATE 160/4.5 mcg INHALER IH SCH ×2 (10:45→22:02)
[2018-07-07 11:05] LABS: N-TERMINAL BNP 84418.1 pg/ml (5-450)
[2018-07-07] MEDS: SODIUM CHLORIDE 1,000 ML IV SCH (13:00)
[2018-07-07] MEDS: AMINO ACIDS 4.25%/D5W 1,000 ML IV SCH ×2 (13:30→18:36)
--- NOTE | 2018-07-07 14:48 | PN ---
Physical Exam: SUBJECTIVE: Patient seen and examined at bedside. no complaints. denies cp, sob , fever, n/v/d. OBJECTIVE: Vital Signs Period Temp Pulse Resp BP Sys/Robbins Pulse Ox Last 24 Hr 96.7 F-97.8 F 87-91 20-20 91-111/65-74 96 GENERAL:AOX 1-2, though he was in drug store. in no acute distress. HEAD: Normal with no signs of trauma. EYES: Pupils equal, round and reactive to light, extraocular movements intact EARS, NOSE, THROAT: Moist mucous membranes. LUNGS: CTAB HEART: RRR, no murmurs heard, defribilator in LUQ ABDOMEN: Soft, NTND, normoactive bowel sounds, no guarding, no rebound, no masses. large ring like purple ecchymosis in umbilical region along w/ petechia along abdomen, chest and possibly legs LOWER EXTREMITIES: 2+ pulses, warm, well-perfused. No calf tenderness. No peripheral edema. NEUROLOGICAL: Cranial nerves II-XII intact. PSYCHIATRIC: Cooperative. Good eye contact. Appropriate mood and affect. SKIN: Warm, dry, normal turgor, no rashes or lesions noted, normal capillary refill. Laboratory Results - last 24 hr 07/06/18 07/06/18 07/06/18 07:20 07:20 18:07 WBC RBC Hgb Hct MCV MCH MCHC RDW Plt Count MPV Absolute Neuts (auto) Neutrophils % Lymphocytes % Monocytes % Eosinophils % Basophils % Nucleated RBC % ESR Haptoglobin 132 PT with INR INR Sodium 139 Potassium 5.4 H Chloride 108 H Carbon Dioxide 19 L Anion Gap 12 BUN 94 H Creatinine 2.6 H Est GFR (CKD-EPI)AfAm 26.57 Est GFR (CKD-EPI)NonAf 22.93 POC Glucometer 161 Random Glucose 137 H Uric Acid 9.5 H Calcium 8.9 Phosphorus Magnesium Total Bilirubin 2.4 H AST 77 H ALT 138 H Alkaline Phosphatase 69 LD Total 228 C-Reactive Protein 2.3 H B-Natriuretic Peptide 89874.1 H Total Protein 6.2 L Albumin 3.2 L TSH 4.06 H D 07/06/18 07/07/18 07/07/18 20:52 05:47 06:30 WBC RBC Hgb Hct MCV MCH MCHC RDW Plt Count MPV Absolute Neuts (auto) Neutrophils % Lymphocytes % Monocytes % Eosinophils % Basophils % Nucleated RBC % ESR 2 Haptoglobin PT with INR INR Sodium Potassium Chloride Carbon Dioxide Anion Gap BUN Creatinine Est GFR (CKD-EPI)AfAm Est GFR (CKD-EPI)NonAf POC Glucometer 146 150 Random Glucose Uric Acid Calcium Phosphorus Magnesium Total Bilirubin AST ALT Alkaline Phosphatase LD Total C-Reactive Protein B-Natriuretic Peptide Total Protein Albumin TSH 07/07/18 07/07/18 07/07/18 06:30 06:30 06:30 WBC 6.5 RBC 4.54 Hgb 13.4 Hct 42.5 MCV 93.7 MCH 29.6 MCHC 31.6 L RDW 16.3 H Plt Count 202 MPV 8.1 Absolute Neuts (auto) 4.6 Neutrophils % 70.6 Lymphocytes % 21.5 Monocytes % 7.6 Eosinophils % 0.1 Basophils % 0.2 Nucleated RBC % 2 H ESR Haptoglobin PT with INR 21.10 H INR 1.78 H Sodium 141 Potassium 5.1 Chloride 108 H Carbon Dioxide 22 Anion Gap 11 BUN 94 H Creatinine 2.9 H Est GFR (CKD-EPI)AfAm 23.29 Est GFR (CKD-EPI)NonAf 20.09 POC Glucometer Random Glucose 143 H Uric Acid Calcium 9.3 Phosphorus 5.4 H Magnesium 3.3 H Total Bilirubin 2.6 H AST 158 H ALT 185 H Alkaline Phosphatase 80 LD Total C-Reactive Protein B-Natriuretic Peptide Total Protein 7.0 Albumin 3.5 TSH 07/07/18 12:03 WBC RBC Hgb Hct MCV MCH MCHC RDW Plt Count MPV Absolute Neuts (auto) Neutrophils % Lymphocytes % Monocytes % Eosinophils % Basophils % Nucleated RBC % ESR Haptoglobin PT with INR INR Sodium Potassium Chloride Carbon Dioxide Anion Gap BUN Creatinine Est GFR (CKD-EPI)AfAm Est GFR (CKD-EPI)NonAf POC Glucometer 135 Random Glucose Uric Acid Calcium Phosphorus Magnesium Total Bilirubin AST ALT Alkaline Phosphatase LD Total C-Reactive Protein B-Natriuretic Peptide Total Protein Albumin TSH Active Medications Generic Name Dose Route Start Last Admin Trade Name Freq PRN Reason Stop Dose Admin Aspirin 81 mg 07/01/18 10:00 07/06/18 10:10 Asa - PO Not Given DAILY [facility] Atorvastatin Calcium 10 mg 07/01/18 22:00 07/05/18 21:59 Lipitor - PO 10 mg HS [facility] Administration Budesonide/Formoterol Fumarate 2 puff 07/01/18 10:00 07/07/18 10:45 Symbicort 160/4.5mcg - IH 2 puff BID [facility] Administration Carvedilol 3.125 mg 07/07/18 10:00 07/07/18 10:43 Coreg - PO 3.125 mg DAILY [facility] Administration Cholecalciferol 5,000 unit 07/01/18 01:30 Vitamin D3 - PO WEEKLY [facility] Docusate Sodium 100 mg 07/06/18 10:00 07/07/18 10:42 Colace - PO 100 mg BID [facility] Administration Febuxostat 40 mg 07/01/18 12:00 07/07/18 10:44 Uloric - PO 40 mg DAILY [facility] Administration Heparin Sodium (Porcine) 5,000 unit 07/01/18 22:00 07/06/18 06:40 Heparin - SQ Not Given TID [facility] Sodium Chloride 1,000 mls @ 42 mls/hr 07/05/18 12:45 07/06/18 12:54 Normal Saline - IV Not Given ASDIR [facility] Insulin Aspart 1 vial 07/01/18 07:00 07/07/18 13:05 Novolog Vial Sliding Scale - SQ Not Given ACHS [facility] Protocol Sodium Bicarbonate 650 mg 07/03/18 10:00 07/07/18 10:43 Sodium Bicarbonate - PO 650 mg BID [facility] Administration [id number] CT/ABDOMEN & PELVIS CT W/O CONTR HISTORY PROVIDED: Rule out bleed TECHNIQUE: Sequential axial images were obtained from the domes of the diaphragm through the symphysis pubis. The study is markedly limited without the use of any contrast material. There are bilateral pleural effusions, right greater than left. The heart is enlarged. No acute infiltrates are identified. There is a trace amount of ascites about the liver. The liver, spleen, pancreas, adrenal glands and kidneys demonstrate no gross abnormalities. Small renal cysts are present bilaterally. The gallbladder has been removed. There is no evidence of intra-abdominal or retroperitoneal lymphadenopathy or fluid collections. There is no evidence of pneumoperitoneum, bowel obstruction or intra-abdominal abscess. There is no CT evidence of acute appendicitis There is extensive diverticulosis coli with no evidence of acute diverticulitis. Examination of the pelvis demonstrates no evidence of pelvic masses, fluid collections or lymphadenopathy. The prostate gland is enlarged measuring 6.2 x 5.4 x 5.5 cm. There is no evidence of acute bony pathology. IMPRESSION: 1. Bilateral pleural effusions. 2. Trace ascites. 3. Extensive diverticulosis coli. 4. Prostatic enlargement. 5. No acute pathology within the abdomen or pelvis. Please see above discussion. ASSESSMENT/PLAN: 77 y/o M PMH HTN, HLD, LV dysfunction/CHF, CKD 4, CAD s/p stents, [place] s/p defribilator, gout, DM, COPD due to smoking history?, who presented from Dr. Hood office with Weakness, poor PO intake, hypotension and found to have increasing confusion and ELLIOTT. There appears to have been a miscommunication between what utility agent recommended and what the daughter gave. It appears as though the daughter continued to give the Lasix even though the patient was not supposed to be doing so. daughter has been concerned for a while about her father having dementia, on last admission pt was referred to Dr Munoz for an outpt dementia eval #? Metabolic encephalopathy vs suspected worsening dementia, poor PO intake -Consulted NeurologyTammy: suspects likely underlying Alzheimer vs frontotemporal dementia with superimposed metabolic encephalopathy with generalized weakness, poor cardiac status likely contributory as well. per neuro , no focality to suggest new cerebral ischemic event, no evidence of seizures, meningitis, encephalitis etc -Dr. Connolly consulted -CT head w/o acute changes -MRI is not an option since has a PPM/defibrilator -hold ACEi and diuretics for now -encourage PO hydration, spoke w/ nephro, may consider clinimix given his worsening dementia state and poor po intake -ammonia nl -cont to hold gabapentin to avoid worsening confusion, neuro recs appreciated -Vit B12, Folic acid elevated -ucx, RPR neg -psych consulted -chief administrative officer consult -pt will likely need placement in NH #new petechia and abdominal echymosis w/ elevated INR 1.79 (not on AC) - unclear etiology. plt are nl/stable. H/H remains stable at baseline. no obvious source of bleed. possibly 2/2 liver disease/injury and c/b vit K depletion 2/2 poor po intake/malabsorbtion. 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 will f/u official recs -c/w PO bicarbonte for metabolic acidosis #CHF with Severe LV dysfunction: not likely an acute issue -EKG was essentially unchanged since prior -cardio consult, Evy for optimization of HF meds, pt noted here w/ slightly low BP -carvedilol decreased bid to qd for low BPs -hold ASA in setting of petechia and echymosis #Acute Transaminitis w/ elevated INR 1.79: Unclear etiology, could be a result of hypotension in the setting of volume depletion. The patient is not on any significant hepatotoxic medications. -hepatitis panel unremarkable -Ultrasound of the RUQ: fatty liver vs hepatocellular disease -will hold lipitor until resolves -cont to trend LFTs, if continues to stay elevated will consider an MRCP -elevated bili. direct bili 1.6 #Hx of gout with elevated Uric acid - no signs of gout c/w home febuxostat #elevated TSH, and FT4, -as per technical account executive most likely sick euthyroid. -will follow with as an outpatient, for further w/u #DM: chronic -hold diabetic meds -ISS -BGM ACHS #CAD: chronic --hold ASA in setting of petechia and echymosis #FEN -encourage PO hydration, spoke w/ nephro, may consider clinimix given his worsening dementia state, poor po intake, and worsening Cr. will f/u official recs -replete prn -diabetic/sodium diet #Prophylaxis -hold SQH tid w/ petechia -scd b/l #Dispo -med surg -pt will likely need placement in NH Visit type - Emergency Visit Emergency Visit: Yes ED Registration Date: 07/01/18 Care time: The patient presented to the Emergency Department on the above date and was hospitalized for further evaluation of their emergent condition. - New Patient This patient is new to me today: Yes Date on this admission: 07/07/18 - Critical Care Critical Care patient: No
--- NOTE | 2018-07-07 16:21 | PN ---
Progress Note (short form) - Note Progress Note: Renal follow up for ELLIOTT Pt seen and examined at the bedside awake, oriented x 2 sitting in chair in hallway daughter is with the patient not eating much no overnight events making urine Vital Signs Temperature 97.5 F L 07/07/18 10:00 Pulse Rate 87 07/07/18 10:00 Respiratory Rate 20 07/07/18 10:00 Blood Pressure 111/74 07/07/18 10:00 O2 Sat by Pulse Oximetry (%) 96 07/07/18 09:00 Intake & Output 07/04/18 07/05/18 07/06/18 07/07/18 23:59 23:59 23:59 23:59 Intake Total 100 1005 568 0 Output Total 745 489 0656 Balance -100 1005 168 -1000 Weight 87.543 kg NAD Neck supple, no JVD RRR, no M/R CTA, no rales soft NT/ND no LE edmea, clubbing or cyanosis no bladder distension CBC, BMP 07/07/18 06:30 07/07/18 06:30 Current Medications Aspirin (Asa -) 81 mg PO DAILY [facility] Last Admin: 07/06/18 10:10 Dose: Not Given Atorvastatin Calcium (Lipitor -) 10 mg PO HS [facility] Last Admin: 07/05/18 21:59 Dose: 10 mg Budesonide/Formoterol Fumarate (Symbicort 160/4.5mcg -) 2 puff IH BID [facility] Last Admin: 07/07/18 10:45 Dose: 2 puff Carvedilol (Coreg -) 3.125 mg PO DAILY [facility] Last Admin: 07/07/18 10:43 Dose: 3.125 mg Cholecalciferol (Vitamin D3 -) 5,000 unit PO DAILY [facility] Docusate Sodium (Colace -) 100 mg PO BID [facility] Last Admin: 07/07/18 10:42 Dose: 100 mg Febuxostat (Uloric -) 40 mg PO DAILY [facility] Last Admin: 07/07/18 10:44 Dose: 40 mg Heparin Sodium (Porcine) (Heparin -) 5,000 unit SQ TID [facility] Last Admin: 07/06/18 06:40 Dose: Not Given Sodium Chloride (Normal Saline -) 1,000 mls @ 42 mls/hr IV ASDIR [facility] Last Admin: 07/06/18 12:54 Dose: Not Given Amino Acids (Clinimix -) 1,000 mls @ 42 mls/hr IV Q23H [facility] Insulin Aspart (Novolog Vial Sliding Scale -) 1 vial SQ ACHS [facility]; Protocol Last Admin: 07/07/18 13:05 Dose: Not Given Sodium Bicarbonate (Sodium Bicarbonate -) 650 mg PO BID [facility] Last Admin: 07/07/18 10:43 Dose: 650 mg 77 year old gentleman with hx of CKD stage 3 (baseline Cr 1.8-2), CAD s/p PCI, CHF with very low LVEF, hyperlipidemia, hypertension, AICD placement, DM, COPD who presented from Dr. Connolly's office with hypotension and found to have increasing confusion and ELLIOTT. #ELLIOTT on CKD due to volume depletion #Hypotension #Altered mental status r/o dementia vs. other cause #DM #Hypertension #CHF #metabolic acidosis with respiratory compensation Cr chrissy to 2.9 today, BUN remains in 90's does not appear uremic at the present time given pt has very poor oral intake, will start clinmix at 42 cc per hour no acute need for diuretics at this time can give PRN lasix as needed if there is acute sob continue sodium bicarb trend BNP Thank you Will follow Mikhail Lnig DO
--- NOTE | 2018-07-07 16:50 | PN ---
Physical Exam: SUBJECTIVE: Patient seen and examined bedbound today awake but lethargic and not responding to questions or commands. afebrile has been borderline hypotensive last night OBJECTIVE: Vital Signs Period Temp Pulse Resp BP Sys/Robbins Pulse Ox Last 24 Hr 96.7 F-97.6 F 87-90 20-20 91-111/65-74 96 GENERAL: Awake, not responding HEAD: Normal with no signs of trauma. EYES: sclera anicteric, conjunctiva clear. No lid lag. EARS, NOSE, THROAT: Moist mucous membranes. LUNGS: Breath sounds equal, clear to auscultation bilaterally HEART: Regular rate and rhythm, normal S1 and S2 ABDOMEN: diffuse abdominal echymoses, no palpable purpura, Soft, nontender, not distended, normoactive bowel sounds, no guarding, no rebound Laboratory Results - last 24 hr 07/06/18 07/06/18 07/06/18 07:20 07:20 18:07 WBC RBC Hgb Hct MCV MCH MCHC RDW Plt Count MPV Absolute Neuts (auto) Neutrophils % Lymphocytes % Monocytes % Eosinophils % Basophils % Nucleated RBC % ESR Haptoglobin 132 PT with INR INR Sodium 139 Potassium 5.4 H Chloride 108 H Carbon Dioxide 19 L Anion Gap 12 BUN 94 H Creatinine 2.6 H Est GFR (CKD-EPI)AfAm 26.57 Est GFR (CKD-EPI)NonAf 22.93 POC Glucometer 161 Random Glucose 137 H Uric Acid 9.5 H Calcium 8.9 Phosphorus Magnesium Total Bilirubin 2.4 H AST 77 H ALT 138 H Alkaline Phosphatase 69 LD Total 228 C-Reactive Protein 2.3 H B-Natriuretic Peptide 23223.1 H Total Protein 6.2 L Albumin 3.2 L TSH 4.06 H D 07/06/18 07/07/18 07/07/18 20:52 05:47 06:30 WBC RBC Hgb Hct MCV MCH MCHC RDW Plt Count MPV Absolute Neuts (auto) Neutrophils % Lymphocytes % Monocytes % Eosinophils % Basophils % Nucleated RBC % ESR 2 Haptoglobin PT with INR INR Sodium Potassium Chloride Carbon Dioxide Anion Gap BUN Creatinine Est GFR (CKD-EPI)AfAm Est GFR (CKD-EPI)NonAf POC Glucometer 146 150 Random Glucose Uric Acid Calcium Phosphorus Magnesium Total Bilirubin AST ALT Alkaline Phosphatase LD Total C-Reactive Protein B-Natriuretic Peptide Total Protein Albumin TSH 07/07/18 07/07/1807/07/19 06:30 06:30 06:30 WBC 6.5 RBC 4.54 Hgb 13.4 Hct 42.5 MCV 93.7 MCH 29.6 MCHC 31.6 L RDW 16.3 H Plt Count 202 MPV 8.1 Absolute Neuts (auto) 4.6 Neutrophils % 70.6 Lymphocytes % 21.5 Monocytes % 7.6 Eosinophils % 0.1 Basophils % 0.2 Nucleated RBC % 2 H ESR Haptoglobin PT with INR 21.10 H INR 1.78 H Sodium 141 Potassium 5.1 Chloride 108 H Carbon Dioxide 22 Anion Gap 11 BUN 94 H Creatinine 2.9 H Est GFR (CKD-EPI)AfAm 23.29 Est GFR (CKD-EPI)NonAf 20.09 POC Glucometer Random Glucose 143 H Uric Acid Calcium 9.3 Phosphorus 5.4 H Magnesium 3.3 H Total Bilirubin 2.6 H AST 158 H ALT 185 H Alkaline Phosphatase 80 LD Total C-Reactive Protein B-Natriuretic Peptide Total Protein 7.0 Albumin 3.5 TSH 07/07/18 12:03 WBC RBC Hgb Hct MCV MCH MCHC RDW Plt Count MPV Absolute Neuts (auto) Neutrophils % Lymphocytes % Monocytes % Eosinophils % Basophils % Nucleated RBC % ESR Haptoglobin PT with INR INR Sodium Potassium Chloride Carbon Dioxide Anion Gap BUN Creatinine Est GFR (CKD-EPI)AfAm Est GFR (CKD-EPI)NonAf POC Glucometer 135 Random Glucose Uric Acid Calcium Phosphorus Magnesium Total Bilirubin AST ALT Alkaline Phosphatase LD Total C-Reactive Protein B-Natriuretic Peptide Total Protein Albumin TSH Active Medications Generic Name Dose Route Start Last Admin Trade Name Freq PRN Reason Stop Dose Admin Aspirin 81 mg 07/01/18 10:00 07/06/18 10:10 Asa - PO Not Given DAILY [facility] Atorvastatin Calcium 10 mg 07/01/18 22:00 07/05/18 21:59 Lipitor - PO 10 mg HS [facility] Administration Budesonide/Formoterol Fumarate 2 puff 07/01/18 10:00 07/07/18 10:45 Symbicort 160/4.5mcg - IH 2 puff BID [facility] Administration Carvedilol 3.125 mg 07/07/18 10:00 07/07/18 10:43 Coreg - PO 3.125 mg DAILY [facility] Administration Cholecalciferol 5,000 unit 07/07/18 16:30 Vitamin D3 - PO DAILY [facility] Docusate Sodium 100 mg 07/06/18 10:00 07/07/18 10:42 Colace - PO 100 mg BID [facility] Administration Febuxostat 40 mg 07/01/18 12:00 07/07/18 10:44 Uloric - PO 40 mg DAILY [facility] Administration Heparin Sodium (Porcine) 5,000 unit 07/01/18 22:00 07/06/18 06:40 Heparin - SQ Not Given TID [facility] Sodium Chloride 1,000 mls @ 42 mls/hr 07/05/18 12:45 07/06/18 12:54 Normal Saline - IV Not Given ASDIR [facility] Amino Acids 1,000 mls @ 42 mls/hr 07/07/18 15:15 Clinimix - IV Q23H [facility] Insulin Aspart 1 vial 07/01/18 07:00 07/07/18 13:05 Novolog Vial Sliding Scale - SQ Not Given ACHS [facility] Protocol Sodium Bicarbonate 650 mg 07/03/18 10:00 07/07/18 10:43 Sodium Bicarbonate - PO 650 mg BID [facility] Administration ASSESSMENT/PLAN: This is a 77 yo M with PMH of HTN, HLD, HFREF s/p defibrillator, CKD stake 4, CAD+ [place] s/p pci stent, gout, DM, COPD, who presented due to failure to thrive. Admitted due to ELLIOTT and transaminitis in setting of volume depletion. elevated INR and echymoses on abdomen suggestive of platelet disfunction vs factor VII deficiency (less likely) transaminitis elliott on ckd stage 4 HFREF CAD DM COPD HTN HLD gout -liver us fatty liver vs hepatocellular disease -platelet disfunction multifactorial, likely due to uremia (bun 90's), asa, liver disease, vit K depletion due to poor po intake/malabsorbtion -worsening transaminitis today -f/u ammonia level -s/p vit K 1 mg sq w/o significant INR improvement 1.78 today -vasculitis less likley, workup p/d. -hold asa, sq hep. -daily INR Problem List - Problems (1) Elevated INR Code(s): R79.1 - ABNORMAL COAGULATION PROFILE (2) Petechiae Code(s): R23.3 - SPONTANEOUS ECCHYMOSES (3) Petechial rash Code(s): R23.3 - SPONTANEOUS ECCHYMOSES (4) ELLIOTT (acute kidney injury) Code(s): N17.9 - ACUTE KIDNEY FAILURE, UNSPECIFIED (5) Elevated transaminase level Code(s): R74.0 - NONSPEC ELEV OF LEVELS OF TRANSAMNS & LACTIC ACID DEHYDRGNSE (6) Weakness Code(s): R53.1 - WEAKNESS (7) Acute on chronic renal insufficiency Code(s): N28.9 - DISORDER OF KIDNEY AND URETER, UNSPECIFIED; N18.9 - CHRONIC KIDNEY DISEASE, UNSPECIFIED Visit type - Emergency Visit Emergency Visit: Yes ED Registration Date: 07/01/18 Care time: The patient presented to the Emergency Department on the above date and was hospitalized for further evaluation of their emergent condition. - New Patient This patient is new to me today: No - Critical Care Critical Care patient: No - Discharge Referral [facility] Med P.C.: No
[2018-07-07] MEDS ORDERED: LORazepam 2 MG/ML SDV VIAL IM ONE (17:34)
[2018-07-07] MEDS ORDERED: INSULIN (NOVOLOG) ASPART 100 UNITS/ML 10ML VIAL ONE (18:06)
[2018-07-07] MEDS: CHOLECALCIFEROL (VIT D3) 1,000 UNIT (25 MCG) TABLET PO SCH (18:07)
[2018-07-07] MEDS ORDERED: PT OWN MED DRAWER 7, Y5N ONE (18:09)
--- NOTE | 2018-07-07 18:24 | PN ---
Teaching Attending Note Name of Resident: Melissa Montana ATTENDING PHYSICIAN STATEMENT I saw and evaluated the patient. I reviewed the resident's note and discussed the case with the resident. I agree with the resident's findings and plan as documented. SUBJECTIVE: Patient seen and examined Little change clinically. Responds appropriately to questions Last Vital Signs Temp Pulse Resp BP Pulse Ox 97.4 F L 94 H 18 89/68 L 96 07/07/18 17:36 07/07/18 17:36 07/07/18 17:36 07/07/18 17:36 07/07/18 09:00 HEENT: SHEREE, EOM Intact Oropharynx: No thrush, No mucositis Cor: RSR, No murmurs, No gallops Lungs: Clear to P&A Abd: Soft, Normal bowel sounds, No organomegaly, subcutaneous bleeding in abdominal wall in carisa-umbilica area with ecchymoses and petechiae Ext:No significant edema Skin: No rashes, Integument intact CBC, BMP 07/07/18 06:30 07/07/18 06:30 INR, PTT INR 1.78 (0.83-1.09) H 07/07/18 06:30 Abnormal Lab Results 07/06/18 07/07/18 07/07/18 07:20 06:30 06:30 MCHC 31.6 L RDW 16.3 H Nucleated RBC % 2 H PT with INR INR Potassium 5.4 H Chloride 108 H 108 H Carbon Dioxide 19 L BUN 94 H 94 H Creatinine 2.6 H 2.9 H Random Glucose 137 H 143 H Uric Acid 9.5 H Phosphorus 5.4 H Magnesium 3.3 H Total Bilirubin 2.4 H 2.6 H AST 77 H 158 H ALT 138 H 185 H C-Reactive Protein 2.3 H B-Natriuretic Peptide 04342.1 H Total Protein 6.2 L Albumin 3.2 L TSH 4.06 H D 07/07/18 06:30 MCHC RDW Nucleated RBC % PT with INR 21.10 H INR 1.78 H Potassium Chloride Carbon Dioxide BUN Creatinine Random Glucose Uric Acid Phosphorus Magnesium Total Bilirubin AST ALT C-Reactive Protein B-Natriuretic Peptide Total Protein Albumin TSH Current Medications Aspirin (Asa -) 81 mg PO DAILY [facility] Last Admin: 07/06/18 10:10 Dose: Not Given Atorvastatin Calcium (Lipitor -) 10 mg PO HS [facility] Last Admin: 07/05/18 21:59 Dose: 10 mg Budesonide/Formoterol Fumarate (Symbicort 160/4.5mcg -) 2 puff IH BID [facility] Last Admin: 07/07/18 10:45 Dose: 2 puff Carvedilol (Coreg -) 3.125 mg PO DAILY [facility] Last Admin: 07/07/18 10:43 Dose: 3.125 mg Cholecalciferol (Vitamin D3 -) 5,000 unit PO DAILY [facility] Last Admin: 07/07/18 18:07 Dose: 5,000 unit Docusate Sodium (Colace -) 100 mg PO BID [facility] Last Admin: 07/07/18 10:42 Dose: 100 mg Febuxostat (Uloric -) 40 mg PO DAILY [facility] Last Admin: 07/07/18 10:44 Dose: 40 mg Heparin Sodium (Porcine) (Heparin -) 5,000 unit SQ TID [facility] Last Admin: 07/06/18 06:40 Dose: Not Given Sodium Chloride (Normal Saline -) 1,000 mls @ 42 mls/hr IV ASDIR [facility] Last Admin: 07/07/18 13:00 Dose: Not Given Amino Acids (Clinimix -) 1,000 mls @ 42 mls/hr IV Q23H [facility] Last Admin: 07/07/18 13:30 Dose: Not Given Insulin Aspart (Novolog Vial Sliding Scale -) 1 vial SQ ACHS [facility]; Protocol Last Admin: 07/07/18 17:18 Dose: Not Given Sodium Bicarbonate (Sodium Bicarbonate -) 650 mg PO BID [facility] Last Admin: 07/07/18 10:43 Dose: 650 mg OBJECTIVE: Impression: Coagulopathy Liver dysfunction -? congestion ,? other ELLIOTT Plan await mixing studies Possible F.VII deficiency - in face of liver disease levels will be depressed Thrombocytopathy of uremia can begin as early as BUN of 100 Off ASA lipitor, and heparin . ASSESSMENT AND PLAN:
--- NOTE | 2018-07-07 18:51 | PN ---
Teaching Attending Note Name of Resident: Patel Nova ATTENDING PHYSICIAN STATEMENT I saw and evaluated the patient. I reviewed the resident's note and discussed the case with the resident. I agree with the resident's findings and plan as documented. SUBJECTIVE: No fever or chills. No WHITE . No abd pain. OBJECTIVE: NAD . dry MM CV : RRR Lungs: CTAB Abd: softs, ND, ecchymosis and petechiae. Ext : petechiae . no edema ASSESSMENT AND PLAN: 77 y/o man with h/o HTN, HLP, systolic CHF, COPD, CKD, CAD s/p stenting, [place], ICD , gout, DM, and other medical problems who presented with general weakness. 1- Encephalopathy: ? possible early dementia. appreciate neuro input 2- Petechiae and ecchymosis: with elevated PT and PTT. ? possible factor deficiency. possible platelet dysfunction in setting of uremia follow mixing study cont to hold aspirin and DVT PX. 3- ELLIOTT : appear to be volume depleted. started on clinimix hold off diuresis 4- Transaminitis: possible liver disease 5- Mild hypotension: ACEI on hold. coreg at lower dose 6- ELLIOTT on CKD. monitor with hydration . hold diuresis . cont sodium bicarb 7- Euthyroid sick syndrome: repeat as out pt 8- DM : cont SSI HLOC .
[2018-07-08] MEDS: INSULIN SLIDING SCALE (NOVOLOG) 1 VIAL SQ SCH ×4 (06:26→21:29)
[2018-07-08 08:05] LABS: BASO % 0.5 % (0-2.0); EOS % 0.6 % (0-4.5); HEMATOCRIT 46.1 % (35.4-49); HEMOGLOBIN 14.3 GM/dL (11.7-16.9); LYMPH % 20.6 % (8-40); MCH 29.7 pg (25.7-33.7); MCHC 30.9 g/dl (32.0-35.9); MEAN CELL VOLUME 96.1 fl (80-96); MEAN PLT VOLUME 8.5 fl (7.5-11.1); NEUT % 71.3 % (42.8-82.8); PLATELET COUNT 131 K/MM3 (134-434); RDW 16.8 % (11.9-15.9); WHITE BLOOD COUNT 6.2 K/mm3 (4.0-10.0)
[2018-07-08 08:47] LABS: ALBUMIN 3.3 g/dl (3.4-5.0); CALCIUM 8.7 mg/dL (8.5-10.1); CREATININE 2.8 mg/dL (0.55-1.3); MAGNESIUM 3.6 mg/dL (1.8-2.4); N-TERMINAL BNP 101142.9 pg/ml (5-450); PHOSPHOROUS 4.6 mg/dL (2.5-4.9); POTASSIUM 4.6 mmol/L (3.5-5.1); TOT PROT 6.8 g/dl (6.4-8.2)
[2018-07-08] MEDS ORDERED: PT OWN MED DRAWER 7, Y5N ONE ×2 (10:31→21:13)
[2018-07-08] MEDS: DOCUSATE SODIUM 100 MG CAPSULE (FP) PO SCH ×2 (10:32→21:24)
[2018-07-08] MEDS: SODIUM BICARBONATE 650 MG TABLET PO SCH ×2 (10:32→21:24)
[2018-07-08] MEDS: CHOLECALCIFEROL (VIT D3) 1,000 UNIT (25 MCG) TABLET PO SCH (10:32)
[2018-07-08] MEDS: FEBUXOSTAT 40 MG TAB PO SCH (10:33)
[2018-07-08] MEDS: BUDESONIDE/FORMETEROL FUMARATE 160/4.5 mcg INHALER IH SCH ×2 (10:34→21:30)
[2018-07-08] MEDS: CARVEDILOL 3.125 MG TABLET (FP) PO SCH (10:35)
[2018-07-08] MEDS ORDERED: SODIUM CHLORIDE 1,000 ML IV STA (13:04)
[2018-07-08] MEDS ORDERED: SODIUM CHLORIDE 1,000 ML IV SCH (13:15)
--- NOTE | 2018-07-08 13:22 | PN ---
Physical Exam: SUBJECTIVE: Patient seen and examined at bedside. no complaints. denies cp, sob , fever, n/v/d. pt noted by nursing staff to be pulling at IVs and refusing IVs coreg held today for low bp OBJECTIVE: Vital Signs Period Temp Pulse Resp BP Sys/Robbins Pulse Ox Last 24 Hr 95.7 F-97.4 F 90-98 18-20 89-127/65-68 GENERAL:AOX 1-2, NAD HEAD: NCAT EYES: Pupils equal, round and reactive to light, extraocular movements intact EARS, NOSE, THROAT: MMM LUNGS: CTAB HEART: RRR, no murmurs heard, defribilator in LUQ ABDOMEN: Soft, NTND, normoactive bowel sounds, no guarding, no rebound, no masses. large ring like purple ecchymosis in umbilical region along w/ petechia along abdomen, chest and possibly legs LOWER EXTREMITIES: 2+ pulses, warm, well-perfused. No calf tenderness. No peripheral edema. NEUROLOGICAL: Cranial nerves II-XII intact. PSYCHIATRIC: Cooperative. Good eye contact. Appropriate mood and affect. SKIN: Warm, dry, normal turgor, no rashes or lesions noted, normal capillary refill. Laboratory Results - last 24 hr 07/07/18 07/07/18 07/07/18 07:00 17:14 21:22 WBC RBC Hgb Hct MCV MCH MCHC RDW Plt Count MPV Absolute Neuts (auto) Neutrophils % Lymphocytes % Monocytes % Eosinophils % Basophils % Nucleated RBC % Sodium Potassium Chloride Carbon Dioxide Anion Gap BUN Creatinine Est GFR (CKD-EPI)AfAm Est GFR (CKD-EPI)NonAf POC Glucometer 147 171 Random Glucose Calcium Phosphorus Magnesium Total Bilirubin AST ALT Alkaline Phosphatase Ammonia 49.50 H LD Total B-Natriuretic Peptide Total Protein Albumin 07/08/18 07/08/18 07/08/18 05:49 07:00 07:00 WBC 6.2 RBC 4.80 Hgb 14.3 Hct 46.1 MCV 96.1 H MCH 29.7 MCHC 30.9 L RDW 16.8 H Plt Count 131 L D MPV 8.5 Absolute Neuts (auto) 4.4 Neutrophils % 71.3 Lymphocytes % 20.6 Monocytes % 7.0 Eosinophils % 0.6 D Basophils % 0.5 Nucleated RBC % 2 H Sodium 141 Potassium 4.6 Chloride 108 H Carbon Dioxide 19 L Anion Gap 13 BUN 95 H Creatinine 2.8 H Est GFR (CKD-EPI)AfAm 24.29 Est GFR (CKD-EPI)NonAf 20.96 POC Glucometer 184 Random Glucose 155 H Calcium 8.7 Phosphorus 4.6 Magnesium 3.6 H Total Bilirubin 2.0 H AST 105 H ALT 154 H Alkaline Phosphatase 73 Ammonia LD Total 269 H B-Natriuretic Peptide 301912.9 H Total Protein 6.8 Albumin 3.3 L Active Medications Generic Name Dose Route Start Last Admin Trade Name Freq PRN Reason Stop Dose Admin Budesonide/Formoterol Fumarate 2 puff 07/01/18 10:00 07/08/18 10:34 Symbicort 160/4.5mcg - IH 2 puff BID [facility] Administration Carvedilol 3.125 mg 07/07/18 10:00 07/08/18 10:35 Coreg - PO Not Given DAILY [facility] Cholecalciferol 5,000 unit 07/07/18 16:30 07/08/18 10:32 Vitamin D3 - PO 5,000 unit DAILY [facility] Administration Docusate Sodium 100 mg 07/06/18 10:00 07/08/18 10:32 Colace - PO 100 mg BID [facility] Administration Febuxostat 40 mg 07/01/18 12:00 07/08/18 10:33 Uloric - PO 40 mg DAILY [facility] Administration Amino Acids 1,000 mls @ 42 mls/hr 07/07/18 15:15 07/07/18 18:36 Clinimix - IV 42 mls/hr Q23H [facility] Administration Sodium Chloride 1,000 mls @ 250 mls/hr 07/08/18 13:15 Normal Saline - IV 07/08/18 17:14 ASDIR [facility] Insulin Aspart 1 vial 07/01/18 07:00 07/08/18 13:10 Novolog Vial Sliding Scale - SQ 2 units ACHS [facility] Administration Protocol Mirtazapine 7.5 mg 07/08/18 22:00 Remeron - PO HS [facility] Sodium Bicarbonate 650 mg 07/03/18 10:00 07/08/18 10:32 Sodium Bicarbonate - PO 650 mg BID [facility] Administration [id number] CT/ABDOMEN & PELVIS CT W/O CONTR HISTORY PROVIDED: Rule out bleed TECHNIQUE: Sequential axial images were obtained from the domes of the diaphragm through the symphysis pubis. The study is markedly limited without the use of any contrast material. There are bilateral pleural effusions, right greater than left. The heart is enlarged. No acute infiltrates are identified. There is a trace amount of ascites about the liver. The liver, spleen, pancreas, adrenal glands and kidneys demonstrate no gross abnormalities. Small renal cysts are present bilaterally. The gallbladder has been removed. There is no evidence of intra-abdominal or retroperitoneal lymphadenopathy or fluid collections. There is no evidence of pneumoperitoneum, bowel obstruction or intra-abdominal abscess. There is no CT evidence of acute appendicitis There is extensive diverticulosis coli with no evidence of acute diverticulitis. Examination of the pelvis demonstrates no evidence of pelvic masses, fluid collections or lymphadenopathy. The prostate gland is enlarged measuring 6.2 x 5.4 x 5.5 cm. There is no evidence of acute bony pathology. IMPRESSION: 1. Bilateral pleural effusions. 2. Trace ascites. 3. Extensive diverticulosis coli. 4. Prostatic enlargement. 5. No acute pathology within the abdomen or pelvis. Please see above discussion. ASSESSMENT/PLAN: 77 y/o M PMH HTN, HLD, LV dysfunction/CHF, CKD 4, CAD s/p stents, SD s/p defribilator, gout, DM, COPD due to smoking history?, who presented from Dr. Hood office with Weakness, poor PO intake, hypotension and found to have increasing confusion and ELLIOTT. There appears to have been a miscommunication between what tail sawyer recommended and what the daughter gave. It appears as though the daughter continued to give the Lasix even though the patient was not supposed to be doing so. daughter has been concerned for a while about her father having dementia, on last admission pt was referred to Dr Munoz for an outpt dementia eval #? Metabolic encephalopathy vs suspected worsening dementia, poor PO intake. pt noted by nursing staff to be pulling at IVs -Consulted NeurologyTammy: suspects likely underlying Alzheimer vs frontotemporal dementia with superimposed metabolic encephalopathy with generalized weakness, poor cardiac status likely contributory as well. per neuro , no focality to suggest new cerebral ischemic event, no evidence of seizures, meningitis, encephalitis etc -Dr. Connolly consulted -CT head w/o acute changes -MRI is not an option since has a PPM/defibrilator -encourage PO hydration, started on clinimix by nephro given his worsening dementia state and poor po intake -will start remeron 7.5 HS to aid w/ appetite and any possible overlying depression that may be contributing -ammonia nl....today mildly elevated but unlikely contributing to his current state, as mental status remains unchanged -cont to hold gabapentin to avoid worsening confusion, neuro recs appreciated -Vit B12, Folic acid elevated -ucx, RPR neg -psych consulted -cleaner laboratory equipment consult -pt has bed at [facility], awaiting auth #new petechia and abdominal echymosis w/ elevated INR 1.79 (not on AC) - unclear etiology. plt are nl/stable. H/H remains stable at baseline. no obvious source of bleed. possibly 2/2 liver disease/injury and c/b vit K depletion 2/2 poor po intake/malabsorbtion. 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 nephro and heme recs appreciated, elevated BUN may be contributing but unclear at this time as levels of 100 may cause platelet dsfx but unclear if this is what is causing his bruising. consider vasculitis on ddx but less likely -heme/onc consult, [place] -corrected retic index is low indicating inadequate marrow response -CT A/P reviewed above, No acute pathology within the abdomen or pelvis -LDH, haptoglobin nl -hold ASA and SQH -f/u HERB, P and C ANCA -f/u mixing study, concern for Facto VII deficiency, heme recs appreciated -ESR 2, CRP 2.3 -s/p vit K 1 mg sq #questionable hypothermia? - pt sleeps naked. 5 episodes of reported mild hypothermia. other vitals stable. does not appear septic appearing. CXR today neg. will chk UA #ELLIOTT on CKD stage4 2/2 volume depletion, baseline Cr is 1.8-2 - improving 2.9...2.8 w/ IVF -nephro consulted, Sushil LandryUA neg -monitor BMP -FeUrea was 38.5% indicating slight tubular dysfunction -hold ACEi and diuretics for now -encourage PO hydration, started on clinimix by nephro given his worsening dementia state and poor po intake -c/w PO bicarbonte for metabolic acidosis #CHF with Severe LV dysfunction: not likely an acute issue -EKG was essentially unchanged since prior -cardio consult, Evy for optimization of HF meds, pt noted here w/ slightly low BP -carvedilol decreased bid to qd for low BPs -hold ASA in setting of petechia and echymosis #Acute Transaminitis w/ elevated INR 1.79: Unclear etiology, could be a result of hypotension in the setting of volume depletion. The patient is not on any significant hepatotoxic medications. - downtrending -hepatitis panel unremarkable -Ultrasound of the RUQ: fatty liver vs hepatocellular disease -will hold lipitor until resolves #Hx of gout with elevated Uric acid - no signs of gout c/w home febuxostat #elevated TSH, and FT4, -as per silviculture professor most likely sick euthyroid. -will follow with as an outpatient, for further w/u #DM: chronic -hold diabetic meds -ISS -BGM ACHS #CAD: chronic --hold ASA in setting of petechia and echymosis #FEN -encourage PO hydration, started on clinimix by nephro given his worsening dementia state and poor po intake -replete prn -diabetic/sodium diet #Prophylaxis -hold SQH tid w/ petechia -scd b/l #Dispo -med surg -pt has bed at [facility], awaiting auth Visit type - Emergency Visit Emergency Visit: Yes ED Registration Date: 07/01/18 Care time: The patient presented to the Emergency Department on the above date and was hospitalized for further evaluation of their emergent condition. - New Patient This patient is new to me today: Yes Date on this admission: 07/08/18 - Critical Care Critical Care patient: No
--- NOTE | 2018-07-08 13:39 | PN ---
Progress Note (short form) - Note Progress Note: Renal follow up for ELLIOTT Pt seen and examined at the bedside awake but confused has been pulling out all IV's eats less then 25% of meals as per nurse making urine has mild hypotension Vital Signs Temperature 96.5 F L 07/08/18 06:00 Pulse Rate 98 H 07/08/18 06:00 Respiratory Rate 20 07/08/18 06:00 Blood Pressure 127/65 07/08/18 06:00 O2 Sat by Pulse Oximetry (%) 96 07/07/18 09:00 Intake & Output 07/05/18 07/06/18 07/07/18 07/08/18 23:59 23:59 23:59 23:59 Intake Total 1005 568 610 300 Output Total 400 1250 Balance 1005 168 -640 300 Weight 87.543 kg 86.693 kg NAD Neck supple, no JVD RRR, no M/R CTA, no rales soft NT/ND no LE edmea, clubbing or cyanosis no bladder distension CBC, BMP 07/08/18 07:00 07/08/18 07:00 Current Medications Budesonide/Formoterol Fumarate (Symbicort 160/4.5mcg -) 2 puff IH BID [facility] Last Admin: 07/08/18 10:34 Dose: 2 puff Carvedilol (Coreg -) 3.125 mg PO DAILY [facility] Last Admin: 07/08/18 10:35 Dose: Not Given Cholecalciferol (Vitamin D3 -) 5,000 unit PO DAILY [facility] Last Admin: 07/08/18 10:32 Dose: 5,000 unit Docusate Sodium (Colace -) 100 mg PO BID [facility] Last Admin: 07/08/18 10:32 Dose: 100 mg Febuxostat (Uloric -) 40 mg PO DAILY [facility] Last Admin: 07/08/18 10:33 Dose: 40 mg Amino Acids (Clinimix -) 1,000 mls @ 42 mls/hr IV Q23H [facility] Last Admin: 07/07/18 18:36 Dose: 42 mls/hr Sodium Chloride (Normal Saline -) 1,000 mls @ 250 mls/hr IV ASDIR [facility] Stop: 07/08/18 17:14 Insulin Aspart (Novolog Vial Sliding Scale -) 1 vial SQ ACHS [facility]; Protocol Last Admin: 07/08/18 13:10 Dose: 2 units Mirtazapine (Remeron -) 7.5 mg PO HS [facility] Sodium Bicarbonate (Sodium Bicarbonate -) 650 mg PO BID [facility] Last Admin: 07/08/18 10:32 Dose: 650 mg 77 year old gentleman with hx of CKD stage 3 (baseline Cr 1.8-2), CAD s/p PCI, CHF with very low LVEF, hyperlipidemia, hypertension, AICD placement, DM, COPD who presented from Dr. Connolly's office with hypotension and found to have increasing confusion and ELLIOTT. #ELLIOTT on CKD due to volume depletion #Hypotension #Altered mental status r/o dementia vs. other cause #DM #Hypertension #CHF #metabolic acidosis with respiratory compensation Renal function unchanged UA w/o signs of active sediment pt appears intra-vascularly volume depleted (low BP, high BUN/Cr ratio, no edema /effusions) Does have elevated BNP CXR w/o effusions will give NS bolus x 1 L and then continue Clinimix at 42cc per hour no acute need for BLOOD BANK CALENDAR CONTROL CLERK vasculitis work up pending Thank you Will follow Mikhail Ling DO
--- NOTE | 2018-07-08 14:33 | PN ---
Teaching Attending Note Name of Resident: Patel Nova ATTENDING PHYSICIAN STATEMENT I saw and evaluated the patient. I reviewed the resident's note and discussed the case with the resident. I agree with the resident's findings and plan as documented. SUBJECTIVE: No fever or chills. he denies SOB . or cp OBJECTIVE: NAD . dry MM . naked CV : RRR Lungs: CTAB Abd: soft , ND, ecchymosis which is slightly expanded to LLQ Ext: petechiae . no edema ASSESSMENT AND PLAN: 77 y/o man with h/o HTN, HLP, systolic CHF, COPD, CKD, CAD s/p stenting, [place], ICD , gout, DM, and other medical problems who presented with general weakness. 1- Encephalopathy: possible early dementia. 2- Petechiae and ecchymosis: with elevated PT and PTT. ? possible factor deficiency. possible platelet dysfunction in setting of uremia . possible liver disease -follow mixing study results cont to hold aspirin and DVT PX. Plt count is lower today, still < 50 % drop .will follow 3- ELLIOTT : Cont to be volume depleted, with poor po intake and hypotension started on clinimix but pulled all his IV lines. will try one in his foot hold off diuresis 4- Transaminitis: possible liver disease 5- Mild hypotension: ACEI on hold. Hold coreg today - if IV can be established, will get IVF and bolus 6- ELLIOTT on CKD. monitor with hydration . hold diuresis . cont sodium bicarb 7- Euthyroid sick syndrome: repeat as out pt 8- DM : cont SSI 9- slight hypothermia: patient is naked, with axillary temperature slightly below normal. doubt any sepsis or infectious process. UA and cxray repeated with no pathology. RN asked to check rectal instead of axillary HLOC
[2018-07-08 16:29] LABS: URINE APPEARANCE CLEAR; URINE BILIRUBIN NEGATIVE (NEGATIVE); URINE COLOR YELLOW; URINE GLUCOSE (UA) NEGATIVE (NEGATIVE); URINE KETONE NEGATIVE (NEGATIVE); URINE LEUK ESTERASE NEGATIVE (NEGATIVE); URINE NITRITE NEGATIVE (NEGATIVE); URINE PROTEIN NEGATIVE (NEGATIVE)
[2018-07-08] MEDS: AMINO ACIDS 4.25%/D5W 1,000 ML IV SCH (17:03)
--- NOTE | 2018-07-08 18:30 | CON.PSY ---
Psychiatry Consult Chief Complaint: 77 angela old male who accoprding to daughter had been cognitivly intact became acutely confused and been displaying aggression. Patient seen for Behaviour management. Cerda has xbeen pulling out IVS and tubes. Patient appears very confused and unable to engage in any [id number] conversation. Symptoms: reports: Irritability, Aggressivity, Impulsivity - Previous Psychiatric Treatment Outpatient: None Inpatient: None - Previous Substance Abuse Treatment Outpatient: None Inpatient: None - Current Medications Current Medications: Active Medications Budesonide/Formoterol Fumarate (Symbicort 160/4.5mcg -) 2 puff IH BID [facility] Last Admin: 07/08/18 10:34 Dose: 2 puff Carvedilol (Coreg -) 3.125 mg PO DAILY [facility] Last Admin: 07/08/18 10:35 Dose: Not Given Cholecalciferol (Vitamin D3 -) 5,000 unit PO DAILY [facility] Last Admin: 07/08/18 10:32 Dose: 5,000 unit Docusate Sodium (Colace -) 100 mg PO BID [facility] Last Admin: 07/08/18 10:32 Dose: 100 mg Febuxostat (Uloric -) 40 mg PO DAILY [facility] Last Admin: 07/08/18 10:33 Dose: 40 mg Amino Acids (Clinimix -) 1,000 mls @ 42 mls/hr IV Q23H [facility] Last Admin: 07/08/18 17:03 Dose: Not Given Insulin Aspart (Novolog Vial Sliding Scale -) 1 vial SQ ACHS [facility]; Protocol Last Admin: 07/08/18 17:28 Dose: Not Given Sodium Bicarbonate (Sodium Bicarbonate -) 650 mg PO BID [facility] Last Admin: 07/08/18 10:32 Dose: 650 mg - Allergies Allergies: Allergies Allergy/AdvReac Type Severity Reaction Status Date / Time No Known Allergies Allergy Verified 06/30/18 20:31 - Current Living Status Usual Living Arrangement: With Child - Current Mental Status Evaluation Appearance: Disheveled Attitude: Guarded - Affect Affect: Constrictive Appropriateness: Not Appropriate - Mood Mood: Irritable - Speech/Language Expressive: Delayed - Psychomotor Activity Psychomotor Activity: Slowed - Thought Process Thought Process: Circumstantial - Thought Content Hallucinations: Absent Delusions: Absent - Self Perception Self Perception: No Impairment - Cognition Attention: Diminished Memory, Immediate Recall: Impaired Memory, Remote with Promptin/3 - Concentration Serial Sevens Intact: No Simple Calculations Intact: No - Abstraction Proverb Interpretation: Impaired Judgement: Moderately Impaired - Insight Insight: Impaired - Impulse Control Impulse Control: Moderately Impaired - Suicidal Ideation Suicidal Ideation: No - Homicidal Ideation Homicidal Ideation: No Problem List - Problems (1) Delirium due to another medical condition, acute, hyperactive Code(s): F05 - DELIRIUM DUE TO KNOWN PHYSIOLOGICAL CONDITION Assessment/Plan 1) Zyprexa 2.5mg po bid for aggressive brehaviour. 2) d/c Remeron.
[2018-07-08] MEDS ORDERED: INSULIN (NOVOLOG) ASPART 100 UNITS/ML 10ML VIAL ONE (21:12)
[2018-07-08] MEDS: OLANZapine 2.5 MG TABLET PO SCH (21:24)
[2018-07-08] MEDS ORDERED: MIRTAZAPINE 15 MG TABLET (FP) PO SCH (22:00)
[2018-07-09] MEDS: INSULIN SLIDING SCALE (NOVOLOG) 1 VIAL SQ SCH ×4 (07:05→22:28)
[2018-07-09 10:41] LABS: BASO % 0.1 % (0-2.0); EOS % 0.5 % (0-4.5); HEMOGLOBIN 13.9 GM/dL (11.7-16.9); LYMPH % 21.6 % (8-40); MCH 29.5 pg (25.7-33.7); MCHC 30.9 g/dl (32.0-35.9); MEAN CELL VOLUME 95.7 fl (80-96); MEAN PLT VOLUME 8.4 fl (7.5-11.1); MONO % 5.7 % (3.8-10.2); NEUT % 72.1 % (42.8-82.8); PLATELET COUNT 147 K/MM3 (134-434); RDW 16.7 % (11.9-15.9); WHITE BLOOD COUNT 5.9 K/mm3 (4.0-10.0)
[2018-07-09 10:50] LABS: INR 1.57 (0.83-1.09); PROTHROMBIN TIME (PATIENT) 18.6 SEC (9.7-13.0)
[2018-07-09 10:52] LABS: ACTIVATED PTT 37.2 SECONDS (25.2-36.5)
[2018-07-09] MEDS ORDERED: PT OWN MED DRAWER 7, Y5N ONE (10:57)
[2018-07-09] MEDS: DOCUSATE SODIUM 100 MG CAPSULE (FP) PO SCH ×2 (10:59→22:11)
[2018-07-09] MEDS: CHOLECALCIFEROL (VIT D3) 1,000 UNIT (25 MCG) TABLET PO SCH (10:59)
[2018-07-09] MEDS: SODIUM BICARBONATE 650 MG TABLET PO SCH ×2 (10:59→22:11)
[2018-07-09] MEDS: CARVEDILOL 3.125 MG TABLET (FP) PO SCH ×2 (10:59→22:14)
[2018-07-09] MEDS: FEBUXOSTAT 40 MG TAB PO SCH (11:00)
[2018-07-09] MEDS: BUDESONIDE/FORMETEROL FUMARATE 160/4.5 mcg INHALER IH SCH ×2 (11:00→22:13)
[2018-07-09] MEDS: OLANZapine 2.5 MG TABLET PO SCH ×2 (11:00→22:12)
[2018-07-09 11:31] LABS: ALBUMIN 3.2 g/dl (3.4-5.0); CALCIUM 8.5 mg/dL (8.5-10.1); CREATININE 2.6 mg/dL (0.55-1.3); MAGNESIUM 3.4 mg/dL (1.8-2.4); N-TERMINAL BNP 100417.6 pg/ml (5-450); PHOSPHOROUS 4.4 mg/dL (2.5-4.9); POTASSIUM 4.8 mmol/L (3.5-5.1); TOT PROT 6.4 g/dl (6.4-8.2)
[2018-07-09] MEDS ORDERED: INSULIN (NOVOLOG) ASPART 100 UNITS/ML 10ML VIAL ONE (12:29)
[2018-07-09] MEDS: AMINO ACIDS 4.25%/D5W 1,000 ML IV SCH (12:32)
--- NOTE | 2018-07-09 14:51 | PN ---
Progress Note (short form) - Note Progress Note: Renal follow up for ELLIOTT Pt seen and examined at the bedside awake and answering questions confused and mildly combative as per nurse pulled out all IV's Vital Signs Temperature 97.5 F L 07/09/18 06:00 Pulse Rate 102 H 07/09/18 10:00 Respiratory Rate 20 07/09/18 10:00 Blood Pressure 107/66 07/09/18 10:00 O2 Sat by Pulse Oximetry (%) 96 07/09/18 09:00 Intake & Output 07/06/18 07/07/18 07/08/18 07/09/18 23:59 23:59 23:59 23:59 Intake Total 502 367 0407 300 Output Total 400 1250 Balance 168 -640 2460 300 Weight 87.543 kg 86.693 kg 86.409 kg NAD, confused CTA, no rales soft NT/ND no LE edmea, clubbing or cyanosis no bladder distension CBC, BMP 07/09/18 10:05 07/09/18 09:50 Current Medications Budesonide/Formoterol Fumarate (Symbicort 160/4.5mcg -) 2 puff IH BID [facility] Last Admin: 07/09/18 11:00 Dose: 2 puff Carvedilol (Coreg -) 3.125 mg PO DAILY [facility] Last Admin: 07/09/18 10:59 Dose: 3.125 mg Cholecalciferol (Vitamin D3 -) 5,000 unit PO DAILY [facility] Last Admin: 07/09/18 10:59 Dose: 5,000 unit Docusate Sodium (Colace -) 100 mg PO BID [facility] Last Admin: 07/09/18 10:59 Dose: 100 mg Febuxostat (Uloric -) 40 mg PO DAILY [facility] Last Admin: 07/09/18 11:00 Dose: 40 mg Amino Acids (Clinimix -) 1,000 mls @ 42 mls/hr IV Q23H [facility] Last Admin: 07/09/18 12:32 Dose: Not Given Insulin Aspart (Novolog Vial Sliding Scale -) 1 vial SQ ACHS [facility]; Protocol Last Admin: 07/09/18 12:34 Dose: 4 units Sodium Bicarbonate (Sodium Bicarbonate -) 650 mg PO BID [facility] Last Admin: 07/09/18 10:59 Dose: 650 mg 77 year old gentleman with hx of CKD stage 3 (baseline Cr 1.8-2), CAD s/p PCI, CHF with very low LVEF, hyperlipidemia, hypertension, AICD placement, DM, COPD who presented from Dr. Connolly's office with hypotension and found to have increasing confusion and ELLIOTT. #ELLIOTT on CKD due to volume depletion #Hypotension #Altered mental status r/o dementia vs. other cause #DM #Hypertension #CHF #metabolic acidosis with respiratory compensation Renal function stable at this time, pt did not get IF because he pulled out IV lines may need to consider some sedation to allow him to get IVF and therapy oral intake remains poor ammonia level elevated, may require lactulose UA w/o signs of active sediment pt appears intra-vascularly volume depleted (low BP, high BUN/Cr ratio, no edema /effusions) no acute need for OWNER PROFESSIONAL ENGINEER vasculitis work up pending Thank you Will follow Mikhail Ling DO
--- NOTE | 2018-07-09 15:19 | PN ---
Physical Exam: SUBJECTIVE: Patient seen and examined at bedside. no complaints. denies cp, sob , fever, n/v/d. pt noted by nursing staff to be pulling at IVs and refusing IVs. Pt cont to take his clothes off and lays in bed naked. more confused today ammonia trending up given zyprexa per psych OBJECTIVE: Vital Signs Period Temp Pulse Resp BP Sys/Robbins Pulse Ox Last 24 Hr 97.5 F-98.0 F 93-102 18-20 98-112/66-80 96 GENERAL:AOX 1-2, NAD. more confused today. cont to take his clothes off and lays in bed naked. HEAD: NCAT EYES: Pupils equal, round and reactive to light, extraocular movements intact EARS, NOSE, THROAT: MMM LUNGS: CTAB HEART: RRR, no murmurs heard, defribilator in LUQ ABDOMEN: Soft, NTND, normoactive bowel sounds, no guarding, no rebound, no masses. large ring like purple ecchymosis in umbilical region along w/ petechia along abdomen, chest and possibly legs LOWER EXTREMITIES: 2+ pulses, warm, well-perfused. No calf tenderness. No peripheral edema. NEUROLOGICAL: Cranial nerves II-XII intact. PSYCHIATRIC: Cooperative. Good eye contact. Appropriate mood and affect. SKIN: Warm, dry, normal turgor, no rashes or lesions noted, normal capillary refill. Laboratory Results - last 24 hr 07/07/18 07/08/18 07/08/18 06:30 09:30 15:40 WBC Corrected WBC (auto) RBC Hgb Hct MCV MCH MCHC RDW Plt Count MPV Absolute Neuts (auto) Neutrophils % Lymphocytes % Monocytes % Eosinophils % Basophils % Nucleated RBC % Platelet Estimate Platelet Comment PT with INR INR PTT (Actin FS) Sodium Potassium Chloride Carbon Dioxide Anion Gap BUN Creatinine Est GFR (CKD-EPI)AfAm Est GFR (CKD-EPI)NonAf POC Glucometer Random Glucose Calcium Phosphorus Magnesium Total Bilirubin AST ALT Alkaline Phosphatase Ammonia B-Natriuretic Peptide Total Protein Albumin Urine Color Urine Appearance Urine pH Ur Specific [place] Urine Protein Urine Glucose (UA) Urine Ketones Urine Blood Urine Nitrite Urine Bilirubin Urine Urobilinogen Ur Leukocyte Esterase Ur Random Creatinine 101.0 Ur Random Sodium HERB Screen Negative Hep Bs Antibody, Quant 522.0 07/08/18 07/08/18 07/08/18 15:40 15:40 17:27 WBC Corrected WBC (auto) RBC Hgb Hct MCV MCH MCHC RDW Plt Count MPV Absolute Neuts (auto) Neutrophils % Lymphocytes % Monocytes % Eosinophils % Basophils % Nucleated RBC % Platelet Estimate Platelet Comment PT with INR INR PTT (Actin FS) Sodium Potassium Chloride Carbon Dioxide Anion Gap BUN Creatinine Est GFR (CKD-EPI)AfAm Est GFR (CKD-EPI)NonAf POC Glucometer 146 Random Glucose Calcium Phosphorus Magnesium Total Bilirubin AST ALT Alkaline Phosphatase Ammonia B-Natriuretic Peptide Total Protein Albumin Urine Color Yellow Urine Appearance Clear Urine pH 5.0 Ur Specific [place] 1.018 Urine Protein Negative Urine Glucose (UA) Negative Urine Ketones Negative Urine Blood Negative Urine Nitrite Negative Urine Bilirubin Negative Urine Urobilinogen 1.0 Ur Leukocyte Esterase Negative Ur Random Creatinine Ur Random Sodium 40 HERB Screen Hep Bs Antibody, Quant 07/08/18 07/09/18 07/09/18 21:28 08:45 09:50 WBC Cancelled Corrected WBC (auto) Cancelled RBC Cancelled Hgb Cancelled Hct Cancelled MCV Cancelled MCH Cancelled MCHC Cancelled RDW Cancelled Plt Count Cancelled MPV Cancelled Absolute Neuts (auto) Cancelled Neutrophils % Cancelled Lymphocytes % Cancelled Monocytes % Cancelled Eosinophils % Cancelled Basophils % Cancelled Nucleated RBC % Cancelled Platelet Estimate Cancelled Platelet Comment Cancelled PT with INR INR PTT (Actin FS) Sodium 142 Potassium 4.8 Chloride 109 H Carbon Dioxide 19 L Anion Gap 14 BUN 92 H Creatinine 2.6 H Est GFR (CKD-EPI)AfAm 26.57 Est GFR (CKD-EPI)NonAf 22.93 POC Glucometer 115 Random Glucose 190 H Calcium 8.5 Phosphorus 4.4 Magnesium 3.4 H Total Bilirubin 3.0 H AST 94 H ALT 140 H Alkaline Phosphatase 73 Ammonia B-Natriuretic Peptide 385148.6 H Total Protein 6.4 Albumin 3.2 L Urine Color Urine Appearance Urine pH Ur Specific [place] Urine Protein Urine Glucose (UA) Urine Ketones Urine Blood Urine Nitrite Urine Bilirubin Urine Urobilinogen Ur Leukocyte Esterase Ur Random Creatinine Ur Random Sodium HERB Screen Hep Bs Antibody, Quant 07/09/18 07/09/18 07/09/18 09:50 10:05 12:00 WBC 5.9 Corrected WBC (auto) RBC 4.70 Hgb 13.9 Hct 45.0 MCV 95.7 MCH 29.5 MCHC 30.9 L RDW 16.7 H Plt Count 147 MPV 8.4 Absolute Neuts (auto) 4.3 Neutrophils % 72.1 Lymphocytes % 21.6 Monocytes % 5.7 Eosinophils % 0.5 Basophils % 0.1 Nucleated RBC % 2 H Platelet Estimate Platelet Comment PT with INR 18.60 H INR 1.57 H PTT (Actin FS) 37.2 H Sodium Potassium Chloride Carbon Dioxide Anion Gap BUN Creatinine Est GFR (CKD-EPI)AfAm Est GFR (CKD-EPI)NonAf POC Glucometer Random Glucose Calcium Phosphorus Magnesium Total Bilirubin AST ALT Alkaline Phosphatase Ammonia 69.10 H B-Natriuretic Peptide Total Protein Albumin Urine Color Urine Appearance Urine pH Ur Specific [place] Urine Protein Urine Glucose (UA) Urine Ketones Urine Blood Urine Nitrite Urine Bilirubin Urine Urobilinogen Ur Leukocyte Esterase Ur Random Creatinine Ur Random Sodium HERB Screen Hep Bs Antibody, Quant 07/09/18 12:33 WBC Corrected WBC (auto) RBC Hgb Hct MCV MCH MCHC RDW Plt Count MPV Absolute Neuts (auto) Neutrophils % Lymphocytes % Monocytes % Eosinophils % Basophils % Nucleated RBC % Platelet Estimate Platelet Comment PT with INR INR PTT (Actin FS) Sodium Potassium Chloride Carbon Dioxide Anion Gap BUN Creatinine Est GFR (CKD-EPI)AfAm Est GFR (CKD-EPI)NonAf POC Glucometer 201 Random Glucose Calcium Phosphorus Magnesium Total Bilirubin AST ALT Alkaline Phosphatase Ammonia B-Natriuretic Peptide Total Protein Albumin Urine Color Urine Appearance Urine pH Ur Specific [place] Urine Protein Urine Glucose (UA) Urine Ketones Urine Blood Urine Nitrite Urine Bilirubin Urine Urobilinogen Ur Leukocyte Esterase Ur Random Creatinine Ur Random Sodium HERB Screen Hep Bs Antibody, Quant Active Medications Generic Name Dose Route Start Last Admin Trade Name Jourdanq PRN Reason Stop Dose Admin Budesonide/Formoterol Fumarate 2 puff 07/01/18 10:00 07/09/18 11:00 Symbicort 160/4.5mcg - IH 2 puff BID [facility]IVE Administration Carvedilol 3.125 mg 07/07/18 10:00 07/09/18 10:59 Coreg - PO 3.125 mg DAILY [facility] Administration Cholecalciferol 5,000 unit 07/07/18 16:30 07/09/18 10:59 Vitamin D3 - PO 5,000 unit DAILY [facility] Administration Docusate Sodium 100 mg 07/06/18 10:00 07/09/18 10:59 Colace - PO 100 mg BID CLIVE Administration Febuxostat 40 mg 07/01/18 12:00 07/09/18 11:00 Uloric - PO 40 mg DAILY [facility] Administration Amino Acids 1,000 mls @ 42 mls/hr 07/07/18 15:15 07/09/18 12:32 Clinimix - IV Not Given Q23H CLIVE Insulin Aspart 1 vial 07/01/18 07:00 07/09/18 12:34 Novolog Vial Sliding Scale - SQ 4 units ACHS CLIVE Administration Protocol Sodium Bicarbonate 650 mg 07/03/18 10:00 07/09/18 10:59 Sodium Bicarbonate - PO 650 mg BID CLIVE Administration [id number] CT/ABDOMEN & PELVIS CT W/O CONTR HISTORY PROVIDED: Rule out bleed TECHNIQUE: Sequential axial images were obtained from the domes of the diaphragm through the symphysis pubis. The study is markedly limited without the use of any contrast material. There are bilateral pleural effusions, right greater than left. The heart is enlarged. No acute infiltrates are identified. There is a trace amount of ascites about the liver. The liver, spleen, pancreas, adrenal glands and kidneys demonstrate no gross abnormalities. Small renal cysts are present bilaterally. The gallbladder has been removed. There is no evidence of intra-abdominal or retroperitoneal lymphadenopathy or fluid collections. There is no evidence of pneumoperitoneum, bowel obstruction or intra-abdominal abscess. There is no CT evidence of acute appendicitis There is extensive diverticulosis coli with no evidence of acute diverticulitis. Examination of the pelvis demonstrates no evidence of pelvic masses, fluid collections or lymphadenopathy. The prostate gland is enlarged measuring 6.2 x 5.4 x 5.5 cm. There is no evidence of acute bony pathology. IMPRESSION: 1. Bilateral pleural effusions. 2. Trace ascites. 3. Extensive diverticulosis coli. 4. Prostatic enlargement. 5. No acute pathology within the abdomen or pelvis. Please see above discussion. ASSESSMENT/PLAN: 77 y/o M PMH HTN, HLD, LV dysfunction/CHF, CKD 4, CAD s/p stents, NH s/p defribilator, gout, DM, COPD due to smoking history?, who presented from Dr. Hood office with Weakness, poor PO intake, hypotension and found to have increasing confusion and ELLIOTT. There appears to have been a miscommunication between what fountain operator recommended and what the daughter gave. It appears as though the daughter continued to give the Lasix even though the patient was not supposed to be doing so. daughter has been concerned for a while about her father having dementia, on last admission pt was referred to Dr Munoz for an outpt dementia eval #? Metabolic encephalopathy vs suspected worsening dementia, poor PO intake. pt noted by nursing staff to be pulling at IVs -Consulted Neurology, Tammy: suspects likely underlying Alzheimer vs frontotemporal dementia with superimposed metabolic encephalopathy with generalized weakness, poor cardiac status likely contributory as well. per neuro , no focality to suggest new cerebral ischemic event, no evidence of seizures, meningitis, encephalitis etc -Dr. Connolly consulted -CT head w/o acute changes -MRI is not an option since has a PPM/defibrilator -encourage PO hydration, started on clinimix by nephro given his worsening dementia state and poor po intake -ammonia trending up may be worsening his already poor mental status. will start lactulose -cont to hold gabapentin to avoid worsening confusion, neuro recs appreciated -Vit B12, Folic acid elevated -ucx, RPR neg -psych consulted -remeron held and given zyprexa per psych, will dc zyprexa as seems to be making pt more groggy -jet ski mechanic consult -will need GOC with daughter regarding PEG vs comfort care #new petechia and abdominal echymosis w/ elevated INR 1.79 (not on AC) - unclear etiology. plt are nl/stable. H/H remains stable at baseline. no obvious source of bleed. possibly 2/2 liver disease/injury and c/b vit K depletion 2/2 poor po intake/malabsorbtion. 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 nephro and heme recs appreciated, elevated BUN may be contributing but unclear at this time as levels of 100 may cause platelet dsfx but unclear if this is what is causing his bruising. 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 - pt sleeps naked. 5 episodes of reported mild hypothermia. other vitals stable. does not appear septic appearing. CXR, UA neg. rectal temp 98. #ELLIOTT on CKD stage4 2/2 volume depletion, baseline Cr is 1.8-2 - improving 2.9...2.8...2.6 w/ IVF -nephro consulted, Sushil -UA neg -monitor BMP -FeUrea was 38.5% indicating slight tubular dysfunction -hold ACEi and diuretics for now -encourage PO hydration, started on clinimix by nephro given his worsening dementia state and poor po intake -c/w PO bicarbonte for metabolic acidosis #CHF with Severe LV dysfunction: not likely an acute issue -EKG was essentially unchanged since prior -cardio consult, Evy for optimization of HF meds, pt noted here w/ slightly low BP -carvedilol decreased bid to qd for low BPs -hold ASA in setting of petechia and echymosis #Acute Transaminitis w/ elevated INR 1.79: Unclear etiology, could be a result of hypotension in the setting of volume depletion. The patient is not on any significant hepatotoxic medications. - downtrending -hepatitis panel unremarkable -Ultrasound of the RUQ: fatty liver vs hepatocellular disease -will hold lipitor until resolves #Hx of gout with elevated Uric acid - no signs of gout c/w home febuxostat #elevated TSH, and FT4, -as per brim setter most likely sick euthyroid. -will follow with as an outpatient, for further w/u #DM: chronic -hold diabetic meds -ISS -BGM ACHS #CAD: chronic --hold ASA in setting of petechia and echymosis #FEN -encourage PO hydration, started on clinimix by nephro given his worsening dementia state and poor po intake -replete prn -diabetic/sodium diet #Prophylaxis -hold SQH tid w/ petechia -scd b/l #Dispo -med surg -pt has bed at [facility], however holding off on dc until pt less groggy/more alert -will need GOC with daughter regarding PEG vs comfort care Visit type - Emergency Visit Emergency Visit: Yes ED Registration Date: 07/01/18 Care time: The patient presented to the Emergency Department on the above date and was hospitalized for further evaluation of their emergent condition. - New Patient This patient is new to me today: Yes Date on this admission: 07/09/18 - Critical Care Critical Care patient: No
[2018-07-09] MEDS: LACTULOSE 20 GM/30 ML UDC (FOR ORAL USE ONLY) PO SCH ×2 (15:48→22:10)
[2018-07-09 17:16] LABS: ATYPICAL pANCA <1:20 titer (Neg:<1:20); C-ANCA <1:20 titer (Neg:<1:20); P-ANCA <1:20 titer (Neg:<1:20)
--- NOTE | 2018-07-09 17:35 | PN ---
Teaching Attending Note Name of Resident: Patel Nova ATTENDING PHYSICIAN STATEMENT I saw and evaluated the patient. I reviewed the resident's note and discussed the case with the resident. I agree with the resident's findings and plan as documented. SUBJECTIVE: lethargic. poor historian OBJECTIVE: NAD . dry MM . naked CV : RRR Lungs: CTAB Abd: soft , ND, ecchymosis Ext: petechiae . no edema ASSESSMENT AND PLAN: 77 y/o man with h/o HTN, HLP, systolic CHF, COPD, CKD, CAD s/p stenting, DE, ICD , gout, DM, and other medical problems who presented with general weakness. 1- Encephalopathy: amonia is elevated. ? hepatic encephalopathy on back ground of dementia. - give lactulose . careful with volume status as he pulled his IVs - hold zyprexa tonight as he is more lethargic after starting it 2- Petechiae and ecchymosis: with elevated PT and PTT. ? possible factor deficiency. possible platelet dysfunction in setting of uremia . possible liver disease -follow mixing study results cont to hold aspirin and DVT PX. Plt count improved 3- ELLIOTT: Cont to be volume depleted, with poor po intake not receiving clinimix or IVF. monitor 4- Transaminitis: possible liver disease . 5- Mild hypotension: ACEI on hold. Hold coreg today - if IV can be established, will get IVF and bolus 6- ELLIOTT on CKD. hold diuresis . cont sodium bicarb 7- Euthyroid sick syndrome: repeat as out pt 8- DM: cont SSI 9- hypotension : dc coreg HLOC
--- NOTE | 2018-07-09 18:28 | PN ---
Progress Note (short form) - Note Progress Note: Patient seen and examined Complains of some abdominal discomfort Somewhat lethargic Last Vital Signs Temp Pulse Resp BP Pulse Ox 98.1 F 102 H 20 111/88 96 07/09/18 15:00 07/09/18 15:00 07/09/18 15:00 07/09/18 15:00 07/09/18 09:00 HEENT: SHEREE, EOM Intact Cor: RSR, No murmurs, No gallops Lungs: Clear to P&A Abd: Soft, Normal bowel sounds, No organomegaly petechiael/purpuric eruption about abdominal wall Ext:No significant edema Skin: No rashes, Integument intact CBC, BMP 07/09/18 10:05 07/09/18 09:50 Current Medications Generic Name Dose Route Start Last Admin Trade Name Freq PRN Reason Stop Dose Admin Budesonide/Formoterol Fumarate 2 puff 07/01/18 10:00 07/09/18 11:00 Symbicort 160/4.5mcg - IH 2 puff BID CLIVE Administration Cholecalciferol 5,000 unit 07/07/18 16:30 07/09/18 10:59 Vitamin D3 - PO 5,000 unit DAILY CLIVE Administration Docusate Sodium 100 mg 07/06/18 10:00 07/09/18 10:59 Colace - PO 100 mg BID CLIVE Administration Febuxostat 40 mg 07/01/18 12:00 07/09/18 11:00 Uloric - PO 40 mg DAILY CLIVE Administration Amino Acids 1,000 mls @ 42 mls/hr 07/07/18 15:15 07/09/18 12:32 Clinimix - IV Not Given Q23H CLIVE Insulin Aspart 1 vial 07/01/18 07:00 07/09/18 17:58 Novolog Vial Sliding Scale - SQ Not Given ACHS [facility] Protocol Lactulose 20 gm 07/09/18 15:30 07/09/18 15:48 Cephulac (Oral Use) PO 20 gm TID CLIVE Administration Olanzapine 2.5 mg 07/09/18 22:00 Zyprexa - PO HS CLIVE Sodium Bicarbonate 650 mg 07/03/18 10:00 07/09/18 10:59 Sodium Bicarbonate - PO 650 mg BID CLIVE Administration Abnormal Lab Results 07/09/18 07/09/18 07/09/18 09:50 09:50 10:05 MCHC 30.9 L RDW 16.7 H Nucleated RBC % 2 H PT with INR 18.60 H INR 1.57 H PTT (Actin FS) 37.2 H Chloride 109 H Carbon Dioxide 19 L BUN 92 H Creatinine 2.6 H Random Glucose 190 H Magnesium 3.4 H Total Bilirubin 3.0 H AST 94 H ALT 140 H Ammonia B-Natriuretic Peptide 633100.6 H Albumin 3.2 L 07/09/18 12:00 MCHC RDW Nucleated RBC % PT with INR INR PTT (Actin FS) Chloride Carbon Dioxide BUN Creatinine Random Glucose Magnesium Total Bilirubin AST ALT Ammonia 69.10 H B-Natriuretic Peptide Albumin Impression: Liver dysfunction-? CHF ELLIOTT Hepatic encephalopathy Coagulopathy Awaiting studies
--- NOTE | 2018-07-09 22:04 | PN ---
Progress Note, Physician Chief Complaint: Pr lying in bed, supine. He mumbles replies, and appears to be confused. Reportedly with poor appetite. History of Present Illness: Mr. Toth is a 77 YO black man with a PMH of HTN, HLD, CKD, CAD s/p stents, PA s/p defibrillator, gout, COPD, hypothyroidism, and CHF who presents to the ER sent in by Dr. Connolly with generalized weakness, poor appetite, and after becoming hypotensive while in his office. Patient has had two recent admissions for dyspnea on exertion to rule out PE in this ED. Patient has been followed up by a formula technician. Denies fever, chills, cp, N/V/C/D or urinary symptoms. Allergies: NKDA Social Hx: Former smoker. Denies drug or alcohol use. PCP: Dr. Holden Renal: Dr. Yane Connolly - Current Medication List Current Medications: Active Medications Budesonide/Formoterol Fumarate (Symbicort 160/4.5mcg -) 2 puff IH BID [facility] Last Admin: 07/09/18 11:00 Dose: 2 puff Cholecalciferol (Vitamin D3 -) 5,000 unit PO DAILY [facility] Last Admin: 07/09/18 10:59 Dose: 5,000 unit Docusate Sodium (Colace -) 100 mg PO BID [facility] Last Admin: 07/09/18 10:59 Dose: 100 mg Febuxostat (Uloric -) 40 mg PO DAILY [facility] Last Admin: 07/09/18 11:00 Dose: 40 mg Amino Acids (Clinimix -) 1,000 mls @ 42 mls/hr IV Q23H [facility] Last Admin: 07/09/18 12:32 Dose: Not Given Insulin Aspart (Novolog Vial Sliding Scale -) 1 vial SQ ACHS [facility]; Protocol Last Admin: 07/09/18 17:58 Dose: Not Given Lactulose (Cephulac (Oral Use)) 20 gm PO TID [facility] Last Admin: 07/09/18 15:48 Dose: 20 gm Olanzapine (Zyprexa -) 2.5 mg PO HS [facility] Sodium Bicarbonate (Sodium Bicarbonate -) 650 mg PO BID [facility] Last Admin: 07/09/18 10:59 Dose: 650 mg - Objective Vital Signs: Vital Signs Temperature 98.1 F 07/09/18 15:00 Pulse Rate 97 H 07/09/18 20:34 Respiratory Rate 18 07/09/18 20:34 Blood Pressure 98/73 07/09/18 20:34 O2 Sat by Pulse Oximetry (%) 96 07/09/18 09:00 Constitutional: Yes: Anxious Eyes: Yes: WNL HENT: Yes: WNL Neck: Yes: WNL Cardiovascular: Yes: S1, S2 (split) Respiratory: Yes: Regular, Diminished. No: Rales, Rhonchi Gastrointestinal: Yes: Soft ...Rectal Exam: Yes: Deferred Genitourinary: No: Anuria Breast(s): Yes: WNL Musculoskeletal: Yes: Muscle Weakness Extremities: Yes: Cool Edema: No Peripheral Pulses WNL: Yes Integumentary: Yes: WNL Neurological: Yes: Alert, Lethargy, Weakness Psychiatric: Yes: Other Labs: CBC, BMP 07/09/18 10:05 07/09/18 09:50 INR, PTT INR 1.57 (0.83-1.09) H 07/09/18 09:50 - ....Imaging Cat Scan: Image Reviewed (bibasal pleural effusions) Problem List - Problems (1) Acute on chronic systolic and diastolic heart failure, NYHA class 1 Assessment/Plan: Carvedilol reduced to 3.125 mg daily due to hypotension, ?change in mental status. ACEI, spironolactone held due to renal dysfunction. F/u BUN/Cr, electrolytes, daily wt, Is and Os. 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 (2) Weakness Code(s): R53.1 - WEAKNESS (3) Acute on chronic renal insufficiency Assessment/Plan: f/u with neprhologist. Code(s): N28.9 - DISORDER OF KIDNEY AND URETER, UNSPECIFIED; N18.9 - CHRONIC KIDNEY DISEASE, UNSPECIFIED (4) COPD (chronic obstructive pulmonary disease) Code(s): J44.9 - CHRONIC OBSTRUCTIVE PULMONARY DISEASE, UNSPECIFIED (5) Gout Code(s): M10.9 - GOUT, UNSPECIFIED (6) History of heart artery stent Code(s): Z95.5 - PRESENCE OF CORONARY ANGIOPLASTY IMPLANT AND GRAFT (7) Hyperlipidemia Code(s): E78.5 - HYPERLIPIDEMIA, UNSPECIFIED (8) Hypertension Code(s): I10 - ESSENTIAL (PRIMARY) HYPERTENSION (9) ICD (implantable cardioverter-defibrillator) in place Code(s): Z95.810 - PRESENCE OF AUTOMATIC (IMPLANTABLE) CARDIAC DEFIBRILLATOR
[2018-07-10] MEDS: LACTULOSE 20 GM/30 ML UDC (FOR ORAL USE ONLY) PO SCH (06:42)
[2018-07-10] MEDS: INSULIN SLIDING SCALE (NOVOLOG) 1 VIAL SQ SCH ×4 (06:42→21:41)
[2018-07-10 08:12] LABS: DRVVT - 59.9 sec (0.0-47.0); dRVVT MIX 42.6 sec (0.0-47.0)
--- NOTE | 2018-07-10 08:58 | PN ---
Progress Note (short form) - Note Progress Note: RENAL coverage for Dr Ling Pt examined unable to give a history appears comfortable Last Vital Signs Temp Pulse Resp BP Pulse Ox 97.7 F 89 20 102/59 L 96 07/10/18 06:00 07/10/18 06:00 07/10/18 06:00 07/10/18 06:00 07/09/18 09:00 lying on right lateral decubitus lungs essentially clear though no deep breaths has a defibrillator abd soft ext no edema skin has some petechiae in lower extremities CBC, BMP 07/09/18 10:05 07/09/18 09:50 Current Medications Generic Name Dose Route Start Last Admin Trade Name Freq PRN Reason Stop Dose Admin Budesonide/Formoterol Fumarate 2 puff 07/01/18 10:00 07/09/18 22:13 Symbicort 160/4.5mcg - IH 2 puff BID CLIVE Administration Carvedilol 3.125 mg 07/09/18 22:15 07/09/18 22:14 Coreg - PO 3.125 mg BID CLIVE Administration Cholecalciferol 5,000 unit 07/07/18 16:30 07/09/18 10:59 Vitamin D3 - PO 5,000 unit DAILY CLIVE Administration Docusate Sodium 100 mg 07/06/18 10:00 07/09/18 22:11 Colace - PO 100 mg BID CLIVE Administration Febuxostat 40 mg 07/01/18 12:00 07/09/18 11:00 Uloric - PO 40 mg DAILY CLIVE Administration Amino Acids 1,000 mls @ 42 mls/hr 07/07/18 15:15 07/09/18 12:32 Clinimix - IV Not Given Q23H CLIVE Insulin Aspart 1 vial 07/01/18 07:00 07/10/18 06:42 Novolog Vial Sliding Scale - SQ Not Given ACHS [facility] Protocol Lactulose 20 gm 07/09/18 15:30 07/10/18 06:42 Cephulac (Oral Use) PO 20 gm TID CLIVE Administration Olanzapine 2.5 mg 07/09/18 22:00 07/09/18 22:12 Zyprexa - PO 2.5 mg HS CLIVE Administration Sodium Bicarbonate 650 mg 07/03/18 10:00 07/09/18 22:11 Sodium Bicarbonate - PO 650 mg BID CLIVE Administration IMPRESSION 77 year old gentleman with hx of CKD stage 3 (baseline Cr 1.8-2), CAD s/p PCI, CHF with very low LVEF, hyperlipidemia, hypertension, AICD placement, DM, COPD who presented from Dr. Connolly's office with hypotension and found to have increasing confusion and ELLIOTT. #ELLIOTT on CKD due to volume depletion- he has petechiae but no active sediment and work up is neg #Hypotension #Altered mental status r/o dementia vs. other cause- hepatic encephalopathy a possibility given ammonia and high LFTs, B12 severely elevated may also be a sign of hepatocellular injury #DM #Hypertension #CHF #metabolic acidosis with respiratory compensation PLAN continue lactulose GI eval if not already done add xifaxan if ammonia level remains elevated no indication for [employer] at this time renal function close to baseline will need to decide to dialyze on clinical grounds given liver disease MV
--- NOTE | 2018-07-10 09:17 | PN ---
Physical Exam: SUBJECTIVE: Patient seen and examined at bedside. no complaints. denies cp, sob , fever, n/v/d. pt noted by nursing staff to be pulling at IVs and refusing IVs , refusing blood draws. Pt cont to take his clothes off and lays in bed naked. more confused/forgetful, fatigued, lethargic OBJECTIVE: Vital Signs Period Temp Pulse Resp BP Sys/Robbins Pulse Ox Last 24 Hr 97.7 F-99.8 F 89-102 18-20 98-111/59-88 GENERAL:AOX 1-2, NAD. more confused/forgetful, fatigued, lethargic today. cont to take his clothes off and lays in bed naked. HEAD: NCAT EYES: Pupils equal, round and reactive to light, extraocular movements intact EARS, NOSE, THROAT: MMM LUNGS: CTAB HEART: RRR, no murmurs heard, defribilator in LUQ ABDOMEN: Soft, NTND, normoactive bowel sounds, no guarding, no rebound, no masses. large ring like purple ecchymosis in umbilical region along w/ petechia along abdomen (appears to be fading in color but spreading in surface area along abd), chest and possibly legs. LOWER EXTREMITIES: 2+ pulses, warm, well-perfused. No calf tenderness. No peripheral edema. NEUROLOGICAL: Cranial nerves II-XII intact. PSYCHIATRIC: Cooperative. Good eye contact. Appropriate mood and affect. SKIN: Warm, dry, normal turgor, no rashes or lesions noted, normal capillary refill. Laboratory Results - last 24 hr 07/07/18 07/07/18 07/08/18 06:30 06:30 07:54 WBC Corrected WBC (auto) RBC Hgb Hct MCV MCH MCHC RDW Plt Count MPV Absolute Neuts (auto) Neutrophils % Lymphocytes % Monocytes % Eosinophils % Basophils % Nucleated RBC % Platelet Estimate Platelet Comment PT with INR INR PTT (Actin FS) LA PTT Baseline 49.9 dRVVT Confirm Interp 59.9 H dRVVT Mixing Study 42.6 Lupus Anticoag Comment Comment: Sodium Potassium Chloride Carbon Dioxide Anion Gap BUN Creatinine Est GFR (CKD-EPI)AfAm Est GFR (CKD-EPI)NonAf POC Glucometer Random Glucose Calcium Phosphorus Magnesium Total Bilirubin AST ALT Alkaline Phosphatase Ammonia B-Natriuretic Peptide Total Protein Albumin Beta Globulins 0.8 ADRIENNE & SPEP Interp Total Protein (ADRIENNE) 6.4 Albumin (ADRIENNE) 3.4 Albumin/Globulin (ADRIENNE) 1.2 Lyyad-0-Anmkqwflo ADRIENNE 0.2 Vcnew-3-Hmvacpoxg ADRIENNE 0.6 Gamma Globulins (ADRIENNE) 1.3 ADRIENNE M-Sulaiman Not observed ADRIENNE Comments IEP IgG 1262 IEP IgA 248 IEP IgM 119 c-ANCA <1:20 Proteinase 3 (PR3) <3.5 p-ANCA <1:20 Atypical p-ANCA <1:20 Myeloperoxidase Ab <9.0 07/09/18 07/09/18 07/09/18 08:45 09:50 09:50 WBC Cancelled Corrected WBC (auto) Cancelled RBC Cancelled Hgb Cancelled Hct Cancelled MCV Cancelled MCH Cancelled MCHC Cancelled RDW Cancelled Plt Count Cancelled MPV Cancelled Absolute Neuts (auto) Cancelled Neutrophils % Cancelled Lymphocytes % Cancelled Monocytes % Cancelled Eosinophils % Cancelled Basophils % Cancelled Nucleated RBC % Cancelled Platelet Estimate Cancelled Platelet Comment Cancelled PT with INR 18.60 H INR 1.57 H PTT (Actin FS) 37.2 H LA PTT Baseline dRVVT Confirm Interp dRVVT Mixing Study Lupus Anticoag Comment Sodium 142 Potassium 4.8 Chloride 109 H Carbon Dioxide 19 L Anion Gap 14 BUN 92 H Creatinine 2.6 H Est GFR (CKD-EPI)AfAm 26.57 Est GFR (CKD-EPI)NonAf 22.93 POC Glucometer Random Glucose 190 H Calcium 8.5 Phosphorus 4.4 Magnesium 3.4 H Total Bilirubin 3.0 H AST 94 H ALT 140 H Alkaline Phosphatase 73 Ammonia B-Natriuretic Peptide 621809.6 H Total Protein 6.4 Albumin 3.2 L Beta Globulins ADRIENNE & SPEP Interp Total Protein (ADRIENNE) Albumin (ADRIENNE) Albumin/Globulin (ADRIENNE) Syctw-7-Ttttajvbi ADRIENNE Qpfin-8-Eqpvxyckp ADRIENNE Gamma Globulins (ADRIENNE) ADRIENNE M-Sulaiman ADRIENNE Comments IEP IgG IEP IgA IEP IgM c-ANCA Proteinase 3 (PR3) p-ANCA Atypical p-ANCA Myeloperoxidase Ab 07/09/18 07/09/18 07/09/18 10:05 12:00 12:33 WBC 5.9 Corrected WBC (auto) RBC 4.70 Hgb 13.9 Hct 45.0 MCV 95.7 MCH 29.5 MCHC 30.9 L RDW 16.7 H Plt Count 147 MPV 8.4 Absolute Neuts (auto) 4.3 Neutrophils % 72.1 Lymphocytes % 21.6 Monocytes % 5.7 Eosinophils % 0.5 Basophils % 0.1 Nucleated RBC % 2 H Platelet Estimate Platelet Comment PT with INR INR PTT (Actin FS) LA PTT Baseline dRVVT Confirm Interp dRVVT Mixing Study Lupus Anticoag Comment Sodium Potassium Chloride Carbon Dioxide Anion Gap BUN Creatinine Est GFR (CKD-EPI)AfAm Est GFR (CKD-EPI)NonAf POC Glucometer 201 Random Glucose Calcium Phosphorus Magnesium Total Bilirubin AST ALT Alkaline Phosphatase Ammonia 69.10 H B-Natriuretic Peptide Total Protein Albumin Beta Globulins ADRIENNE & SPEP Interp Total Protein (ADRIENNE) Albumin (ADRIENNE) Albumin/Globulin (ADRIENNE) Zckzh-4-Ynjiyjffa ADRIENNE Ovqgy-2-Nflkhaudx ADRIENNE Gamma Globulins (ADRIENNE) ADRIENNE M-Sulaiman ADRIENNE Comments IEP IgG IEP IgA IEP IgM c-ANCA Proteinase 3 (PR3) p-ANCA Atypical p-ANCA Myeloperoxidase Ab 07/09/18 07/09/18 07/10/18 17:57 22:24 06:47 WBC Corrected WBC (auto) RBC Hgb Hct MCV MCH MCHC RDW Plt Count MPV Absolute Neuts (auto) Neutrophils % Lymphocytes % Monocytes % Eosinophils % Basophils % Nucleated RBC % Platelet Estimate Platelet Comment PT with INR INR PTT (Actin FS) LA PTT Baseline dRVVT Confirm Interp dRVVT Mixing Study Lupus Anticoag Comment Sodium Potassium Chloride Carbon Dioxide Anion Gap BUN Creatinine Est GFR (CKD-EPI)AfAm Est GFR (CKD-EPI)NonAf POC Glucometer 130 154 121 Random Glucose Calcium Phosphorus Magnesium Total Bilirubin AST ALT Alkaline Phosphatase Ammonia B-Natriuretic Peptide Total Protein Albumin Beta Globulins ADRIENNE & SPEP Interp Total Protein (ADRIENNE) Albumin (ADRIENNE) Albumin/Globulin (ADRIENNE) Wmvjx-9-Qwncbihnd ADRIENNE Rcozg-5-Toumyjvnh ADRIENNE Gamma Globulins (ADRIENNE) ADRIENNE M-Sulaiman ADRIENNE Comments IEP IgG IEP IgA IEP IgM c-ANCA Proteinase 3 (PR3) p-ANCA Atypical p-ANCA Myeloperoxidase Ab Active Medications Generic Name Dose Route Start Last Admin Trade Name Freq PRN Reason Stop Dose Admin Budesonide/Formoterol Fumarate 2 puff 07/01/18 10:00 07/09/18 22:13 Symbicort 160/4.5mcg - IH 2 puff BID CLIVE Administration Carvedilol 3.125 mg 07/09/18 22:15 07/09/18 22:14 Coreg - PO 3.125 mg BID CLIVE Administration Cholecalciferol 5,000 unit 07/07/18 16:30 07/09/18 10:59 Vitamin D3 - PO 5,000 unit DAILY CLIVE Administration Docusate Sodium 100 mg 07/06/18 10:00 07/09/18 22:11 Colace - PO 100 mg BID CLIVE Administration Febuxostat 40 mg 07/01/18 12:00 07/09/18 11:00 Uloric - PO 40 mg DAILY CLIVE Administration Amino Acids 1,000 mls @ 42 mls/hr 07/07/18 15:15 07/09/18 12:32 Clinimix - IV Not Given Q23H [facility] Insulin Aspart 1 vial 07/01/18 07:00 07/10/18 06:42 Novolog Vial Sliding Scale - SQ Not Given ACHS [facility] Protocol Lactulose 20 gm 07/09/18 15:30 07/10/18 06:42 Cephulac (Oral Use) PO 20 gm TID CLIVE Administration Olanzapine 2.5 mg 07/09/18 22:00 07/09/18 22:12 Zyprexa - PO 2.5 mg HS CLIVE Administration Sodium Bicarbonate 650 mg 07/03/18 10:00 07/09/18 22:11 Sodium Bicarbonate - PO 650 mg BID CLIVE Administration [id number] CT/ABDOMEN & PELVIS CT W/O CONTR HISTORY PROVIDED: Rule out bleed TECHNIQUE: Sequential axial images were obtained from the domes of the diaphragm through the symphysis pubis. The study is markedly limited without the use of any contrast material. There are bilateral pleural effusions, right greater than left. The heart is enlarged. No acute infiltrates are identified. There is a trace amount of ascites about the liver. The liver, spleen, pancreas, adrenal glands and kidneys demonstrate no gross abnormalities. Small renal cysts are present bilaterally. The gallbladder has been removed. There is no evidence of intra-abdominal or retroperitoneal lymphadenopathy or fluid collections. There is no evidence of pneumoperitoneum, bowel obstruction or intra-abdominal abscess. There is no CT evidence of acute appendicitis There is extensive diverticulosis coli with no evidence of acute diverticulitis. Examination of the pelvis demonstrates no evidence of pelvic masses, fluid collections or lymphadenopathy. The prostate gland is enlarged measuring 6.2 x 5.4 x 5.5 cm. There is no evidence of acute bony pathology. IMPRESSION: 1. Bilateral pleural effusions. 2. Trace ascites. 3. Extensive diverticulosis coli. 4. Prostatic enlargement. 5. No acute pathology within the abdomen or pelvis. Please see above discussion. ASSESSMENT/PLAN: 77 y/o M PMH HTN, HLD, LV dysfunction/CHF, CKD 4, CAD s/p stents, DC s/p defribilator, gout, DM, COPD due to smoking history?, who presented from Dr. Hood office with Weakness, poor PO intake, hypotension and found to have increasing confusion and ELLIOTT. There appears to have been a miscommunication between what internet marketing coordinator recommended and what the daughter gave. It appears as though the daughter continued to give the Lasix even though the patient was not supposed to be doing so. daughter has been concerned for a while about her father having dementia, on last admission pt was referred to Dr Munoz for an outpt dementia eval #? Metabolic encephalopathy vs suspected worsening dementia, poor PO intake. pt noted to be pulling at IVs and refusing blood draws -Consulted NeurologyTammy: suspects likely underlying Alzheimer vs frontotemporal dementia with superimposed metabolic encephalopathy with generalized weakness, poor cardiac status likely contributory as well. per neuro , no focality to suggest new cerebral ischemic event, no evidence of seizures, meningitis, encephalitis etc -Dr. Connolly consulted -CT head w/o acute changes -MRI is not an option since has a PPM/defibrilator -encourage PO hydration, started on clinimix by nephro given his worsening dementia state and poor po intake -ammonia trending up (today pt refused labs) may be worsening his already poor mental status. c/w lactulose -cont to hold gabapentin to avoid worsening confusion, neuro recs appreciated -Vit B12, Folic acid elevated -ucx, RPR neg -psych consulted -c/w zyprexa per psych -quality and reliability engineer consult -will need GOC with daughter regarding PEG vs comfort care #new petechia and abdominal echymosis w/ elevated INR 1.79 (not on AC) - unclear etiology. plt are nl/stable. H/H remains stable at baseline. no obvious source of bleed. possibly 2/2 liver disease/injury and c/b vit K depletion 2/2 poor po intake/malabsorbtion. 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 nephro and heme recs appreciated, elevated BUN may be contributing but unclear at this time as levels of 100 may cause platelet dsfx but unclear if this is what is causing his bruising. 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 - pt sleeps naked. 5 episodes of reported mild hypothermia. other vitals stable. does not appear septic appearing. CXR, UA neg. rectal temp 98. #ELLIOTT on CKD stage4 2/2 volume depletion, baseline Cr is 1.8-2 - improving 2.9...2.8...2.6 w/ IVF -nephro consulted, Sushil -UA, MM immuno w/u neg -monitor BMP -FeUrea was 38.5% indicating slight tubular dysfunction -hold ACEi and diuretics for now -encourage PO hydration, started on clinimix by nephro given his worsening dementia state and poor po intake -c/w PO bicarbonte for metabolic acidosis #CHF with Severe LV dysfunction: not likely an acute issue -EKG was essentially unchanged since prior -cardio consult, Evy for optimization of HF meds, pt noted here w/ slightly low BP -carvedilol resumed at bid per cardio -hold ASA in setting of petechia and echymosis #Acute Transaminitis w/ elevated INR 1.79: Unclear etiology, could be a result of hypotension in the setting of volume depletion. The patient is not on any significant hepatotoxic medications. - downtrending -hepatitis panel unremarkable -Ultrasound of the RUQ: fatty liver vs hepatocellular disease -will hold lipitor until resolves #Hx of gout with elevated Uric acid - no signs of gout c/w home febuxostat #elevated TSH, and FT4, -as per donor relations coordinator most likely sick euthyroid. -will follow with as an outpatient, for further w/u #DM: chronic -hold diabetic meds -ISS -BGM ACHS #CAD: chronic -hold ASA in setting of petechia and echymosis #FEN -encourage PO hydration, started on clinimix by nephro given his worsening dementia state and poor po intake -replete prn -diabetic/sodium diet #Prophylaxis -hold SQH tid w/ petechia -scd b/l #Dispo -med surg -pt has bed at [facility], however holding off on dc until pt less groggy/more alert, less aggressive -will need GOC with daughter regarding PEG vs comfort care Visit type - Emergency Visit Emergency Visit: Yes ED Registration Date: 07/01/18 Care time: The patient presented to the Emergency Department on the above date and was hospitalized for further evaluation of their emergent condition. - New Patient This patient is new to me today: Yes Date on this admission: 07/10/18 - Critical Care Critical Care patient: No
[2018-07-10] MEDS ORDERED: PT OWN MED DRAWER 7, Y5N ONE ×2 (09:54→21:17)
[2018-07-10] MEDS: CHOLECALCIFEROL (VIT D3) 1,000 UNIT (25 MCG) TABLET PO SCH (09:57)
[2018-07-10] MEDS: SODIUM BICARBONATE 650 MG TABLET PO SCH ×2 (09:57→21:41)
[2018-07-10] MEDS: FEBUXOSTAT 40 MG TAB PO SCH (09:57)
[2018-07-10] MEDS: CARVEDILOL 3.125 MG TABLET (FP) PO SCH ×2 (09:57→21:41)
[2018-07-10] MEDS: DOCUSATE SODIUM 100 MG CAPSULE (FP) PO SCH ×2 (09:57→21:41)
[2018-07-10] MEDS: BUDESONIDE/FORMETEROL FUMARATE 160/4.5 mcg INHALER IH SCH ×2 (09:59→21:42)
--- NOTE | 2018-07-10 11:57 | CON.GI ---
Consult Consult Specialty:: Gastroenterology ( covering the [facility] GI service) Referred by:: Dr. Elmo John Reason for Consultation:: Abnormal LFTs - History of Present Illness Chief Complaint: Altered mental status History of Present Illness: 77M is admitted with weakness 77M with CKD 3 is admitted with an altered mental status and renal deterioration after being inadvertently given diuretics that had been suspended. He is found to have elevated LFTs. Imaging reveals a small amount of ascites, a normal sized fatty liver, no ductal dilation and no splenomegaly but he has a very high BNP and his echocardiogram reveals global hypokinesis. I saw him in consultation in 12/26 when he had abnormal LFTs felt to be related to congestive hepatopathy. He admits to heavy alcohol usage in the past but has never been told of cirrhosis or abnormal LFTs. He had a distal transverse adenoma removed by Dr De La Fuente in 02/25 when universal diverticulosis was also noted. - History Source History Provided By: Patient, Medical Record Limitations to Obtaining History: Poor Historian - Past Medical History Cardio/Vascular: Yes: CAD, CHF (severe global hypokinesis), HTN, Hyperlipdemia, IA ("several years ago"), Pulmonary Hypertension, Other (defibrillator,s/p cardiac stent at [facility]) Pulmonary: Yes: COPD ("emphysema", per pt's daughter (Yeimi)) Gastrointestinal: Yes: Diverticulosis, Other (colon adenoma removed 02/19/16) Hepatobiliary: Yes: Cholelithiasis (s/p lap choly) Renal/: Yes: Renal Failure (chronic), Other (renal cysts) Psych: Yes: Anxiety Rheumatology: Yes: Gout Endocrine: Yes: Diabetes Mellitus - Past Surgical History Past Surgical History: Yes: AICD, Cholecystectomy, Colonoscopy - Alcohol/Substance Use Hx Alcohol Use: Yes (quit several years ago) History of Substance Use: reports: None - Smoking History Smoking history: Former smoker Have you smoked in the past 12 months: No Aproximately how many cigarettes per day: 10 If you are a former smoker, when did you quit?: many years ago - Social History Usual Living Arrangement: With Child ADL: Independent 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 Place of : [facility] History of Recent Travel: No Home Medications - Allergies Allergies/Adverse Reactions: Allergies Allergy/AdvReac Type Severity Reaction Status Date / Time No Known Allergies Allergy Verified 06/30/18 20:31 - Home Medications Home Medications: Ambulatory Orders Aspirin [ASA -] 81 mg PO DAILY 01/02/17 Cholecalciferol (Vitamin D3) [Vitamin D -] 5,000 unit PO WEEKLY 01/02/17 Febuxostat [Uloric] 40 mg PO DAILY 01/02/17 Gabapentin 300 mg PO DAILY 01/02/17 Glimepiride [Amaryl] 2 mg PO DAILY 01/02/17 Lipitor 10 mg PO HS 01/02/17 Carvedilol [Coreg -] 3.125 mg PO BID 06/17/18 Budesonide/Formeterol Fumarate [SYMBICORT 160/4.5mcg -] 2 puff IH BID #1 inhaler 06/21/18 Family Disease History - Family Disease History Family Disease History: Diabetes: Mother ( age 87), Heart Disease: Father ( lived in his 90s) Review of Systems - Review of Systems Constitutional: reports: Lethargy, Malaise, Weakness Cardiovascular: reports: Shortness of Breath Respiratory: reports: SOB on Exertion Gastrointestinal: reports: No Symptoms Physical Exam-GI Vital Signs: Vital Signs Temperature 97.7 F 07/10/18 06:00 Pulse Rate 89 07/10/18 06:00 Respiratory Rate 20 07/10/18 06:00 Blood Pressure 102/59 L 07/10/18 06:00 O2 Sat by Pulse Oximetry (%) 96 07/09/18 09:00 CBC,CMP WBC 5.9 K/mm3 (4.0-10.0) 07/09/18 10:05 Corrected WBC (auto) Cancelled 07/09/18 08:45 RBC 4.70 M/mm3 (4.00-5.60) 07/09/18 10:05 Hgb 13.9 GM/dL (11.7-16.9) 07/09/18 10:05 Hct 45.0 % (35.4-49) 07/09/18 10:05 MCV 95.7 fl (80-96) 07/09/18 10:05 MCH 29.5 pg (25.7-33.7) 07/09/18 10:05 MCHC 30.9 g/dl (32.0-35.9) L 07/09/18 10:05 RDW 16.7 % (11.9-15.9) H 07/09/18 10:05 Plt Count 147 K/MM3 (134-434) 07/09/18 10:05 MPV 8.4 fl (7.5-11.1) 07/09/18 10:05 Absolute Neuts (auto) 4.3 K/mm3 (1.5-8.0) 07/09/18 10:05 Neutrophils % 72.1 % (42.8-82.8) 07/09/18 10:05 Lymphocytes % 21.6 % (8-40) 07/09/18 10:05 Monocytes % 5.7 % (3.8-10.2) 07/09/18 10:05 Eosinophils % 0.5 % (0-4.5) 07/09/18 10:05 Basophils % 0.1 % (0-2.0) 07/09/18 10:05 Nucleated RBC % 2 % (0-0) H 07/09/18 10:05 Platelet Estimate Cancelled 07/09/18 08:45 Platelet Comment Cancelled 07/09/18 08:45 ESR 2 mm/hr (0-20) 07/07/18 06:30 Retic Count 2.78 % (0.5-1.5) H 07/06/18 07:20 Haptoglobin 132 mg/dL (34-200) 07/06/18 07:20 Sodium 142 mmol/L (136-145) 07/09/18 09:50 Potassium 4.8 mmol/L (3.5-5.1) 07/09/18 09:50 Chloride 109 mmol/L (98-107) H 07/09/18 09:50 Carbon Dioxide 19 mmol/L (21-32) L 07/09/18 09:50 Anion Gap 14 MMOL/L (8-16) 07/09/18 09:50 BUN 92 mg/dL (7-18) H 07/09/18 09:50 Creatinine 2.6 mg/dL (0.55-1.3) H 07/09/18 09:50 Est GFR (CKD-EPI)AfAm 26.57 07/09/18 09:50 Est GFR (CKD-EPI)NonAf 22.93 07/09/18 09:50 POC Glucometer 152 UNITS (80-120) 07/10/18 12:05 Random Glucose 190 mg/dL (74-106) H 07/09/18 09:50 Uric Acid 9.5 mg/dL (2.6-7.2) H 07/06/18 07:20 Calcium 8.5 mg/dL (8.5-10.1) 07/09/18 09:50 Phosphorus 4.4 mg/dL (2.5-4.9) 07/09/18 09:50 Magnesium 3.4 mg/dL (1.8-2.4) H 07/09/18 09:50 Total Bilirubin 3.0 mg/dL (0.2-1) H 07/09/18 09:50 Direct Bilirubin 1.6 mg/dL (0.0-0.2) H 07/05/18 08:20 AST 94 U/L (15-37) H 07/09/18 09:50 ALT 140 U/L (13-61) H 07/09/18 09:50 Alkaline Phosphatase 73 U/L (45-117) 07/09/18 09:50 Ammonia 69.10 umol/L (11-32) H 07/09/18 12:00 LD Total 269 U/L (87-246) H 07/08/18 07:00 Creatine Kinase 160 U/L (26-308) 06/30/18 21:30 Creatine Kinase Index 1.0 % (0.0-5.0) 06/30/18 21:30 CK-MB (CK-2) 1.7 ng/mL (0.5-3.6) 06/30/18 21:30 Troponin I 0.02 ng/ml (0.00-0.05) 07/01/18 11:25 C-Reactive Protein 2.3 MG/DL (0.00-0.3) H 07/06/18 07:20 B-Natriuretic Peptide 430463.6 pg/ml (5-450) H 07/09/18 09:50 Total Protein 6.4 g/dl (6.4-8.2) 07/09/18 09:50 Albumin 3.2 g/dl (3.4-5.0) L 07/09/18 09:50 Beta Globulins 0.8 g/dL (0.7-1.3) 07/08/18 07:54 Vitamin B12 > 6000 pg/ml (193-986) H 07/01/18 11:25 Serum Folate 18 ng/mL (3.1-17.5) H 07/01/18 11:25 TSH 4.06 uIU/ml (0.358-3.74) H D 07/06/18 07:20 Free T4 1.35 ng/dl (0.76-1.16) H 07/03/18 08:50 Free T3 1.5 pg/ml (2.0-4.4) L 07/03/18 08:50 Current Medications Generic Name Dose Route Start Last Admin Trade Name Freq PRN Reason Stop Dose Admin Budesonide/Formoterol Fumarate 2 puff 07/01/18 10:00 07/10/18 09:59 Symbicort 160/4.5mcg - IH 2 puff BID [facility] Administration Carvedilol 3.125 mg 07/09/18 22:15 07/10/18 09:57 Coreg - PO 3.125 mg BID [facility] Administration Cholecalciferol 5,000 unit 07/07/18 16:30 07/10/18 09:57 Vitamin D3 - PO 5,000 unit DAILY [facility] Administration Docusate Sodium 100 mg 07/06/18 10:00 07/10/18 09:57 Colace - PO 100 mg BID [facility] Administration Febuxostat 40 mg 07/01/18 12:00 07/10/18 09:57 Uloric - PO 40 mg DAILY [facility] Administration Amino Acids 1,000 mls @ 42 mls/hr 07/07/18 15:15 07/10/18 12:09 Clinimix - IV Not Given Q23H [facility] Insulin Aspart 1 vial 07/01/18 07:00 07/10/18 12:05 Novolog Vial Sliding Scale - SQ 2 units ACHS [facility] Administration Protocol Lactulose 20 gm 07/09/18 15:30 07/10/18 06:42 Cephulac (Oral Use) PO 20 gm TID [facility] Administration Olanzapine 2.5 mg 07/09/18 22:00 07/09/18 22:12 Zyprexa - PO 2.5 mg HS [facility] Administration Sodium Bicarbonate 650 mg 07/03/18 10:00 07/10/18 09:57 Sodium Bicarbonate - PO 650 mg BID [facility] Administration Constitutional: Yes: No Distress Eyes: Yes: Sclera Icterus HENT: Yes: Atraumatic Neck: Yes: Supple Cardiovascular: Yes: Regular Rate and Rhythm, Murmur (2/6 TOM at LLSB), Other ( left AICD) Respiratory: Yes: Rales Gastrointestinal Inspection: Yes: Scars (healed lap choly incisions) ...Auscultate: Yes: Normoactive Bowel Sounds ...Palpate: Yes: Soft, Other ...Rectal Exam: Yes: Deferred Edema: LLE: 1+, RLE: 1+ Neurological: Yes: Lethargy Labs: CBC, BMP 07/09/18 10:05 07/09/18 09:50 INR, PTT INR 1.57 (0.83-1.09) H 07/09/18 09:50 Laboratory Tests 09/01/10 02/27/13 04/01/13 11:03 10:05 05:50 Alkaline Phosphatase 76 136 D 91 D Total Bilirubin AST ALT B-Natriuretic Peptide HERB Screen Hepatitis A IgM Ab Hep Bs Antigen Hep Bs Antibody, Quant Hep B Core IgM Ab Hepatitis C Antibody 10/25/13 05/27/14 01/02/17 09:50 12:45 09:48 Alkaline Phosphatase 189 H D Total Bilirubin 0.5 D 2.3 H D AST ALT B-Natriuretic Peptide HERB Screen Hepatitis A IgM Ab Hep Bs Antigen Hep Bs Antibody, Quant Hep B Core IgM Ab Hepatitis C Antibody 01/04/17 01/05/17 03/24/18 07:30 15:30 14:11 Alkaline Phosphatase 110 Total Bilirubin 3.0 H 1.2 H AST 18 ALT 15 B-Natriuretic Peptide HERB Screen Hepatitis A IgM Ab Hep Bs Antigen Hep Bs Antibody, Quant Hep B Core IgM Ab Hepatitis C Antibody 06/16/18 06/17/18 06/20/18 16:31 05:30 15:49 Alkaline Phosphatase 64 Total Bilirubin 1.2 H AST ALT 66 H B-Natriuretic Peptide HERB Screen Hepatitis A IgM Ab Hep Bs Antigen Hep Bs Antibody, Quant Hep B Core IgM Ab Hepatitis C Antibody 06/21/18 06/30/18 06/30/18 06:30 21:30 21:30 Alkaline Phosphatase Total Bilirubin AST 32 152 H ALT 40 292 H B-Natriuretic Peptide 27313.4 H HERB Screen Hepatitis A IgM Ab Hep Bs Antigen Hep Bs Antibody, Quant Hep B Core IgM Ab Hepatitis C Antibody 07/01/18 07/01/1819 07:35 07:35 08:50 Alkaline Phosphatase Total Bilirubin 2.2 H AST 64 H ALT 173 H B-Natriuretic Peptide HERB Screen Hepatitis A IgM Ab Negative Hep Bs Antigen Negative Hep Bs Antibody, Quant Hep B Core IgM Ab Negative Hepatitis C Antibody 0.1 07/05/18 07/07/18 07/07/18 08:20 06:30 06:30 Alkaline Phosphatase 80 Total Bilirubin 2.6 H AST 158 H ALT B-Natriuretic Peptide HERB Screen Negative Hepatitis A IgM Ab Hep Bs Antigen Hep Bs Antibody, Quant Hep B Core IgM Ab Hepatitis C Antibody 07/08/18 07/08/18 07/09/18 07:00 09:30 09:50 Alkaline Phosphatase 73 Total Bilirubin 2.0 H 3.0 H AST 94 H ALT 140 H B-Natriuretic Peptide 141059.6 H HERB Screen Hepatitis A IgM Ab Hep Bs Antigen Hep Bs Antibody, Quant 522.0 Hep B Core IgM Ab Hepatitis C Antibody Imaging - Results Cat Scan: Report Reviewed ( Final Report CT ABDOMEN & PELVIS CT W/O CONTR Show Printer-Friendly Version Patient Name: Rick Fraser : 1940 ID: [id number] Study Date: 06-Jul-2018 12:24 [facility] Name: RICK FRASER DEPARTMENT OF RADIOLOGY Phys: Elmo Wheeler RESIDENT : 1940 Age: 77 Sex: M [facility] Acct: [id number] Loc: [address] Exam Date: 07/06/18 Status: [place] [address] Unit Number: [id number] EXAM#: TYPE/EXAM: RESULT: [id number] CT/ ABDOMEN PELVIS CT W/O CONTR HISTORY PROVIDED: Rule out bleed TECHNIQUE: Sequential axial images were obtained from the domes of the diaphragm through the symphysis pubis. The study is markedly limited without the use of any contrast material. There are bilateral pleural effusions, right greater than left. The heart is enlarged. No acute infiltrates are identified. There is a trace amount of ascites about the liver. The liver, spleen, pancreas, adrenal glands and kidneys demonstrate no gross abnormalities. Small renal cysts are present bilaterally. The gallbladder has been removed. There is no evidence of intra -abdominal or retroperitoneal lymphadenopathy or fluid collections. There is no evidence of pneumoperitoneum, bowel obstruction or intra-abdominal abscess. There is no CT evidence of acute appendicitis There is extensive diverticulosis coli with no evidence of acute diverticulitis. Examination of the pelvis demonstrates no evidence of pelvic masses, fluid collections or lymphadenopathy. The prostate gland is enlarged measuring 6.2 x 5.4 x 5.5 cm. There is no evidence of acute bony pathology. IMPRESSION: 1. Bilateral pleural effusions. 2. Trace ascites. 3. Extensive diverticulosis coli. 4. Prostatic enlargement. 5. No acute pathology within the abdomen or pelvis. Please see above discussion. Reported By: Lance Pitts MD 07/06/18 1339 Technologist: Reza Pizano Transcribed Date/Time: 07/06/18 1339 Research Instructor: Lance Pitts Printed Date/Time: By: Signed by: Lance Pitts Signed on: 06-Jul-2018 13:40) Problem List - Problems (1) Abnormal liver function tests Assessment/Plan: I again suspect that Rick's LFT abnormalities reflect congestive hepatopathy but cannot exclude an underlying component of residual alcoholic fatty liver disease Code(s): R94.5 - ABNORMAL RESULTS OF LIVER FUNCTION STUDIES (2) Hx of congestive cardiomyopathy Code(s): Z86.79 - PERSONAL HISTORY OF OTHER DISEASES OF THE CIRCULATORY SYSTEM (3) AICD (automatic cardioverter/defibrillator) present Code(s): Z95.810 - PRESENCE OF AUTOMATIC (IMPLANTABLE) CARDIAC DEFIBRILLATOR (4) Colon adenoma Code(s): D12.6 - BENIGN NEOPLASM OF COLON, UNSPECIFIED (5) History of laparoscopic cholecystectomy Code(s): Z90.49 - ACQUIRED ABSENCE OF OTHER SPECIFIED PARTS OF DIGESTIVE TRACT (6) Delirium due to another medical condition, acute, hyperactive Code(s): F05 - DELIRIUM DUE TO KNOWN PHYSIOLOGICAL CONDITION (7) Diabetes mellitus type 2 in obese Code(s): E11.9 - TYPE 2 DIABETES MELLITUS WITHOUT COMPLICATIONS; E66.9 - OBESITY , UNSPECIFIED (8) Diverticulosis large intestine w/o perforation or abscess w/bleeding Code(s): K57.31 - DVRTCLOS OF LG INT W/O PERFORATION OR ABSCESS W BLEEDING (9) Gout Code(s): M10.9 - GOUT, UNSPECIFIED (10) History of heart artery stent Code(s): Z95.5 - PRESENCE OF CORONARY ANGIOPLASTY IMPLANT AND GRAFT (11) Jaundice Code(s): R17 - UNSPECIFIED JAUNDICE (12) Renal insufficiency Code(s): N28.9 - DISORDER OF KIDNEY AND URETER, UNSPECIFIED (13) Severe left ventricular systolic dysfunction Code(s): I51.9 - HEART DISEASE, UNSPECIFIED Assessment/Plan Impression: - I again suspect that Rick's LFT abnormalities reflect congestive hepatopathy but the transaminase elevations suggest a component of ischemic injury. I cannot exclude CBD stones and an underlying component of residual alcoholic fatty liver disease. Th lack of splenomegaly and normal liver size argues against cirrhosis. - History of colon adenoma - Diverticulosis Plan: -- Management of CHF will benefit the liver and should resolve the LFTs. Unfortunately his AICD precludes an MRCP and he needs to be followed for the possibility of recurrent stones in the CBD
[2018-07-10] MEDS: AMINO ACIDS 4.25%/D5W 1,000 ML IV SCH (12:09)
[2018-07-10 12:27] LABS: ALBUMIN 3.3 g/dl (3.4-5.0); BILIRUBIN,TOTAL 2.7 mg/dL (0.2-1); CALCIUM 8.9 mg/dL (8.5-10.1); CREATININE 2.7 mg/dL (0.55-1.3); MAGNESIUM 3.5 mg/dL (1.8-2.4); PHOSPHOROUS 4.4 mg/dL (2.5-4.9); TOT PROT 6.6 g/dl (6.4-8.2)
[2018-07-10 12:30] LABS: INR 1.61 (0.83-1.09); PROTHROMBIN TIME (PATIENT) 19.1 SEC (9.7-13.0)
[2018-07-10 12:32] LABS: BASO % 0.1 % (0-2.0); EOS % 1.5 % (0-4.5); HEMATOCRIT 43.3 % (35.4-49); HEMOGLOBIN 13.5 GM/dL (11.7-16.9); LYMPH % 21.8 % (8-40); MCH 29.6 pg (25.7-33.7); MCHC 31.1 g/dl (32.0-35.9); MEAN CELL VOLUME 94.9 fl (80-96); MEAN PLT VOLUME 8.5 fl (7.5-11.1); MONO % 4.2 % (3.8-10.2); NEUT % 72.4 % (42.8-82.8); PLATELET COUNT 132 K/MM3 (134-434); RBC 4.57 M/mm3 (4.00-5.60); RDW 16.5 % (11.9-15.9); WHITE BLOOD COUNT 6.2 K/mm3 (4.0-10.0)
[2018-07-10 12:33] LABS: ACTIVATED PTT 35.2 SECONDS (25.2-36.5)
--- NOTE | 2018-07-10 13:10 | PN ---
Teaching Attending Note Name of Resident: Elmo Wheeler ATTENDING PHYSICIAN STATEMENT I saw and evaluated the patient. I reviewed the resident's note and discussed the case with the resident. I agree with the resident's findings and plan as documented. SUBJECTIVE: declined interview and exam. wants to sleep. OBJECTIVE: Naked , sleeping, talks with eyes closed ASSESSMENT AND PLAN: 77 y/o man with h/o HTN, HLP, systolic CHF, COPD, CKD, CAD s/p stenting, ME, ICD , gout, DM, and other medical problems who presented with general weakness. 1- Encephalopathy: dementia, volume depletion, medications. D/w Dr. Camacho: no hepatic encephalopathy. no need for lactulose - give zyprexa only at HS 2- Petechiae and ecchymosis: with elevated PT and PTT. ? possible factor deficiency. possible platelet dysfunction in setting of uremia . possible liver disease -follow mixing study results cont to hold aspirin and DVT PX. stable plt count 3- ELLIOTT on CKD : Cont to be volume depleted, with poor po intake. ANCA is neg , SPEP neg for M spike not receiving clinimix or IVF. monitor cont bicarb 4- Transaminitis: possible liver disease. appreciate dr. Camacho help. discussed with him. f/u as out pt No need for rifaximin and lactulose as low suspicion for hepatic encephalopathy 5- Mild hypotension: improved 6- h/o systlic CHF: hold diuresis in setting of volume depletion. coreg resumed by card . will cont . appreciate Recs 7- Euthyroid sick syndrome: repeat as out pt 8- DM: cont SSI HLOC will try again to reach daughter for discussion about goals of care
[2018-07-10] MEDS: POLYETHYLENE GLYCOL 3350 119 GM BTL PO PRN (16:26)
--- NOTE | 2018-07-10 19:18 | PN ---
Progress Note, Physician History of Present Illness: Per daughter at bedside, continues to be minimally interactive. No bleeding. - Current Medication List Current Medications: Active Medications Budesonide/Formoterol Fumarate (Symbicort 160/4.5mcg -) 2 puff IH BID [facility] Last Admin: 07/10/18 09:59 Dose: 2 puff Carvedilol (Coreg -) 3.125 mg PO BID [facility] Last Admin: 07/10/18 09:57 Dose: 3.125 mg Cholecalciferol (Vitamin D3 -) 5,000 unit PO DAILY [facility] Last Admin: 07/10/18 09:57 Dose: 5,000 unit Docusate Sodium (Colace -) 100 mg PO BID [facility] Last Admin: 07/10/18 09:57 Dose: 100 mg Febuxostat (Uloric -) 40 mg PO DAILY [facility] Last Admin: 07/10/18 09:57 Dose: 40 mg Amino Acids (Clinimix -) 1,000 mls @ 42 mls/hr IV Q23H [facility] Last Admin: 07/10/18 12:09 Dose: Not Given Insulin Aspart (Novolog Vial Sliding Scale -) 1 vial SQ ACHS [facility]; Protocol Last Admin: 07/10/18 17:43 Dose: 4 units Olanzapine (Zyprexa -) 2.5 mg PO HS [facility] Last Admin: 07/09/18 22:12 Dose: 2.5 mg Polyethylene Glycol (Miralax (For Daily Use) -) 17 gm PO DAILY PRN PRN Reason: CONSTIPATION Last Admin: 07/10/18 16:26 Dose: 17 grams Sodium Bicarbonate (Sodium Bicarbonate -) 650 mg PO BID [facility] Last Admin: 07/10/18 09:57 Dose: 650 mg - Objective Vital Signs: Vital Signs Temperature 97.2 F L 07/10/18 17:30 Pulse Rate 96 H 07/10/18 17:30 Respiratory Rate 20 07/10/18 17:30 Blood Pressure 105/60 07/10/18 17:30 O2 Sat by Pulse Oximetry (%) 100 07/10/18 09:00 Constitutional: Yes: Mild Distress, Other (Somnelent but arousable to touch) Eyes: Yes: Conjunctiva Clear Cardiovascular: Yes: Regular Rate and Rhythm Respiratory: Yes: Regular, CTA Bilaterally Gastrointestinal: Yes: Soft. No: Distention, Tenderness Additional Findings/Remarks: In wheelchair Labs: CBC, BMP 07/10/18 11:30 07/10/18 11:30 INR, PTT INR 1.61 (0.83-1.09) H 07/10/18 11:30 Assessment/Plan 77M with HTN, HLD, CAD with LV dysfunction, s/p AICD, COPD, CKD IV, admitted with generalized weakness, poor PO intake, hypotension. Hematology following for petechiae and ecchymosis, prolonged PT/PTT, mild thrombocytopenia. Ddx includes liver disease, vit k deficiency, DIC. PTT 37. PT 18 Plt 147. Hgb 13.9 BUN 92, GFR 20s, transaminases elevated, albumin 3.2 Mixing studies pending LA negative Please check FV, VII, VIII, X, fibrinogen
[2018-07-10] MEDS: OLANZapine 2.5 MG TABLET PO SCH (21:41)
[2018-07-11] MEDS: INSULIN SLIDING SCALE (NOVOLOG) 1 VIAL SQ SCH ×4 (06:32→21:37)
[2018-07-11 07:52] LABS: BASO % 0.1 % (0-2.0); HEMATOCRIT 41.6 % (35.4-49); HEMOGLOBIN 13.1 GM/dL (11.7-16.9); MCH 29.5 pg (25.7-33.7); MCHC 31.4 g/dl (32.0-35.9); MEAN CELL VOLUME 93.9 fl (80-96); MEAN PLT VOLUME 8.7 fl (7.5-11.1); MONO % 4.9 % (3.8-10.2); PLATELET COUNT 113 K/MM3 (134-434); RBC 4.43 M/mm3 (4.00-5.60); RDW 16.2 % (11.9-15.9); WHITE BLOOD COUNT 7.5 K/mm3 (4.0-10.0)
[2018-07-11 08:05] LABS: INR 1.39 (0.83-1.09); PROTHROMBIN TIME (PATIENT) 16.4 SEC (9.7-13.0)
[2018-07-11 08:08] LABS: ACTIVATED PTT 26.8 SECONDS (25.2-36.5)
[2018-07-11 08:34] LABS: ALBUMIN 3.2 g/dl (3.4-5.0); BILIRUBIN,TOTAL 2.5 mg/dL (0.2-1); CALCIUM 8.7 mg/dL (8.5-10.1); CREATININE 2.5 mg/dL (0.55-1.3); MAGNESIUM 3.5 mg/dL (1.8-2.4); PHOSPHOROUS 4.3 mg/dL (2.5-4.9); TOT PROT 6.1 g/dl (6.4-8.2)
--- NOTE | 2018-07-11 08:50 | PN ---
Progress Note (short form) - Note Progress Note: RENAL coverage for Dr Ling Pt examined unable to give a history appears comfortable Last Vital Signs Temp Pulse Resp BP Pulse Ox 97.5 F L 110 H 22 H 95/45 L 100 07/10/18 20:27 07/10/18 20:27 07/10/18 20:27 07/10/18 20:27 07/10/18 09:00 lying on right lateral decubitus lungs essentially clear though no deep breaths has a defibrillator abd soft ext no edema skin has some petechiae in lower extremities and scratch espinal 07/11/18 06:00 07/11/18 06:00 Current Medications Generic Name Dose Route Start Last Admin Trade Name Freq PRN Reason Stop Dose Admin Budesonide/Formoterol Fumarate 2 puff 07/01/18 10:00 07/10/18 21:42 Symbicort 160/4.5mcg - IH 2 puff BID [facility] Administration Carvedilol 3.125 mg 07/09/18 22:15 07/10/18 21:41 Coreg - PO 3.125 mg BID [facility] Administration Cholecalciferol 5,000 unit 07/07/18 16:30 07/10/18 09:57 Vitamin D3 - PO 5,000 unit DAILY [facility] Administration Docusate Sodium 100 mg 07/06/18 10:00 07/10/18 21:41 Colace - PO 100 mg BID [facility] Administration Febuxostat 40 mg 07/01/18 12:00 07/10/18 09:57 Uloric - PO 40 mg DAILY [facility] Administration Amino Acids 1,000 mls @ 42 mls/hr 07/07/18 15:15 07/10/18 12:09 Clinimix - IV Not Given Q23H [facility] Insulin Aspart 1 vial 07/01/18 07:00 07/11/18 06:32 Novolog Vial Sliding Scale - SQ Not Given ACHS [facility] Protocol Olanzapine 2.5 mg 07/09/18 22:00 07/10/18 21:41 Zyprexa - PO 2.5 mg HS [facility] Administration Polyethylene Glycol 17 gm 07/10/18 13:04 07/10/18 16:26 Miralax (For Daily Use) - PO 17 grams DAILY PRN Administration CONSTIPATION Sodium Bicarbonate 650 mg 07/03/18 10:00 07/10/18 21:41 Sodium Bicarbonate - PO 650 mg BID [facility] Administration IMPRESSION 77 year old gentleman with hx of CKD stage 3 (baseline Cr 1.8-2), CAD s/p PCI, CHF with very low LVEF, hyperlipidemia, hypertension, AICD placement, DM, COPD who presented from Dr. Connolly's office with hypotension and found to have increasing confusion and ELLIOTT. Seen by GI and thought to have ischemic hepatopathy as cause of his elevated liver enzymes #ELLIOTT on CKD due to volume depletion- he has petechiae but no active sediment and work up is neg #Hypotension #Altered mental status r/o dementia vs. other cause- hepatic encephalopathy a possibility given ammonia and high LFTs, B12 severely elevated may also be a sign of hepatocellular injury #DM #Hypertension #CHF #metabolic acidosis with respiratory compensation PLAN would restart lactulose GI eval noted add xifaxan if ammonia level remains elevated no indication for [employer] at this time renal function close to baseline will need to decide to dialyze on clinical grounds given liver disease. If recurrent chf would dialyze MV
[2018-07-11] MEDS ORDERED: PT OWN MED DRAWER 7, Y5N ONE ×2 (10:23→21:14)
[2018-07-11] MEDS: CHOLECALCIFEROL (VIT D3) 1,000 UNIT (25 MCG) TABLET PO SCH (10:24)
[2018-07-11] MEDS: DOCUSATE SODIUM 100 MG CAPSULE (FP) PO SCH ×2 (10:24→21:37)
[2018-07-11] MEDS: CARVEDILOL 3.125 MG TABLET (FP) PO SCH ×2 (10:24→21:37)
[2018-07-11] MEDS: FEBUXOSTAT 40 MG TAB PO SCH (10:24)
[2018-07-11] MEDS: SODIUM BICARBONATE 650 MG TABLET PO SCH ×2 (10:24→21:37)
[2018-07-11] MEDS: BUDESONIDE/FORMETEROL FUMARATE 160/4.5 mcg INHALER IH SCH ×2 (10:25→21:37)
[2018-07-11] MEDS: POLYETHYLENE GLYCOL 3350 119 GM BTL PO PRN (10:26)
[2018-07-11] MEDS: AMINO ACIDS 4.25%/D5W 1,000 ML IV SCH (12:20)
--- NOTE | 2018-07-11 12:20 | PN ---
Progress Note (short form) - Note Progress Note: Subjective: No fever or chills. No WHITE , no pain, denies SOB. wants to sleep. feels cold ( naked in bed with fan ) Objective: Vital Signs: Last Vital Signs Temp Pulse Resp BP Pulse Ox 97.8 F 88 20 103/61 100 07/11/18 09:07 07/11/18 09:07 07/11/18 09:07 07/11/18 09:07 07/10/18 09:00 Laboratory Results - last 24 hr 07/10/18 07/10/18 07/10/18 11:30 11:30 11:30 WBC 6.2 RBC 4.57 Hgb 13.5 Hct 43.3 MCV 94.9 MCH 29.6 MCHC 31.1 L RDW 16.5 H Plt Count 132 L MPV 8.5 Absolute Neuts (auto) 4.5 Neutrophils % 72.4 Lymphocytes % 21.8 Monocytes % 4.2 Eosinophils % 1.5 D Basophils % 0.1 Nucleated RBC % 1 H PT with INR 19.10 H INR 1.61 H PTT (Actin FS) 35.2 Fibrinogen Sodium 143 Potassium 5.0 Chloride 109 H Carbon Dioxide 21 Anion Gap 13 BUN 92 H Creatinine 2.7 H Est GFR (CKD-EPI)AfAm 25.39 Est GFR (CKD-EPI)NonAf 21.90 POC Glucometer Random Glucose 161 H Calcium 8.9 Phosphorus 4.4 Magnesium 3.5 H Total Bilirubin 2.7 H AST 74 H ALT 122 H Alkaline Phosphatase 74 Ammonia B-Natriuretic Peptide Total Protein 6.6 Albumin 3.3 L 07/10/18 07/10/18 07/10/18 11:30 11:30 17:42 WBC RBC Hgb Hct MCV MCH MCHC RDW Plt Count MPV Absolute Neuts (auto) Neutrophils % Lymphocytes % Monocytes % Eosinophils % Basophils % Nucleated RBC % PT with INR INR PTT (Actin FS) Fibrinogen Sodium Potassium Chloride Carbon Dioxide Anion Gap BUN Creatinine Est GFR (CKD-EPI)AfAm Est GFR (CKD-EPI)NonAf POC Glucometer 217 Random Glucose Calcium Phosphorus Magnesium Total Bilirubin AST ALT Alkaline Phosphatase Ammonia 24.60 B-Natriuretic Peptide 628018.1 H Total Protein Albumin 07/10/18 07/11/18 07/11/18 21:07 05:47 06:00 WBC 7.5 RBC 4.43 Hgb 13.1 Hct 41.6 MCV 93.9 MCH 29.5 MCHC 31.4 L RDW 16.2 H Plt Count 113 L MPV 8.7 Absolute Neuts (auto) 5.8 Neutrophils % 77.0 Lymphocytes % 16.0 D Monocytes % 4.9 Eosinophils % 2.0 Basophils % 0.1 Nucleated RBC % 1 H PT with INR INR PTT (Actin FS) Fibrinogen Sodium Potassium Chloride Carbon Dioxide Anion Gap BUN Creatinine Est GFR (CKD-EPI)AfAm Est GFR (CKD-EPI)NonAf POC Glucometer 92 148 Random Glucose Calcium Phosphorus Magnesium Total Bilirubin AST ALT Alkaline Phosphatase Ammonia B-Natriuretic Peptide Total Protein Albumin 07/11/18 07/11/18 07/11/18 06:00 06:00 06:00 WBC RBC Hgb Hct MCV MCH MCHC RDW Plt Count MPV Absolute Neuts (auto) Neutrophils % Lymphocytes % Monocytes % Eosinophils % Basophils % Nucleated RBC % PT with INR 16.40 H INR 1.39 H PTT (Actin FS) 26.8 Fibrinogen Sodium 141 Potassium 5.0 Chloride 111 H Carbon Dioxide 18 L Anion Gap 12 BUN 98 H Creatinine 2.5 H Est GFR (CKD-EPI)AfAm 27.86 Est GFR (CKD-EPI)NonAf 24.04 POC Glucometer Random Glucose 128 H Calcium 8.7 Phosphorus 4.3 Magnesium 3.5 H Total Bilirubin 2.5 H AST 57 H ALT 100 H Alkaline Phosphatase 74 Ammonia 32.60 H B-Natriuretic Peptide Total Protein 6.1 L Albumin 3.2 L 07/11/18 07/11/18 06:00 11:45 WBC RBC Hgb Hct MCV MCH MCHC RDW Plt Count MPV Absolute Neuts (auto) Neutrophils % Lymphocytes % Monocytes % Eosinophils % Basophils % Nucleated RBC % PT with INR INR PTT (Actin FS) Fibrinogen 190.0 L Sodium Potassium Chloride Carbon Dioxide Anion Gap BUN Creatinine Est GFR (CKD-EPI)AfAm Est GFR (CKD-EPI)NonAf POC Glucometer 212 Random Glucose Calcium Phosphorus Magnesium Total Bilirubin AST ALT Alkaline Phosphatase Ammonia B-Natriuretic Peptide Total Protein Albumin Physical Exam: NAD , more awake compared to yesterday. CV: RRR, no MRG Lungs: CTAB Abd: sfot, NT, ND ,NLBS, ecchymosis in periambilical area and RLQ, LLQ Ext : no edema or erythema A/P 77 y/o man with h/o HTN, HLP, systolic CHF, COPD, CKD, CAD s/p stenting, [place], ICD , gout, DM, and other medical problems who presented with general weakness. 1- Encephalopathy: dementia, volume depletion, medications, and uremia. - zyprexa only at HS 2- Petechiae and ecchymosis: with elevated PT and PTT. could be multifactorial - mixing studiy pending - Fibrinogen is low, ? low grade DIC .d/w heme , , repeat and follow coagulation factors - Factor V and X pending - factor VII, and VIII need aurthorization . will d/w heme -cont to hold aspirin and DVT PX. 3- ELLIOTT on CKD : Cont to be volume depleted, with poor po intake. ANCA is neg , SPEP neg for M spike not receiving clinimix or IVF due to pulling his IVs . monitor cont bicarb 4- Transaminitis: possible liver disease. appreciate dr. Camacho help. No need for rifaximin and lactulose as low suspicion for hepatic encephalopathy and risk for volume depletion with poor po intake 5- Mild hypotension: improved 6- h/o systlic CHF: hold diuresis in setting of volume depletion. cont coreg . 7- Euthyroid sick syndrome: repeat as out pt 8- DM: cont SSI HLOC Case was d/w daughter yesterday: goals of care and PEG placement. she cesar ld/w rest of her family. awaiting decision Visit type - Emergency Visit Emergency Visit: Yes ED Registration Date: 07/01/18 Care time: The patient presented to the Emergency Department on the above date and was hospitalized for further evaluation of their emergent condition. - New Patient This patient is new to me today: No - Critical Care Critical Care patient: No
[2018-07-11 13:14] LABS: INR 1.88 (0.83-1.09); PROTHROMBIN TIME (PATIENT) 22.3 SEC (9.7-13.0)
--- NOTE | 2018-07-11 14:22 | PN.GI ---
GI Progress Note Subjective: GI NOte: No GI complaints. Conversant. LFTs improving - Objective Vital Signs: Vital Signs Temperature 97.8 F 07/11/18 09:07 Pulse Rate 88 07/11/18 09:07 Respiratory Rate 20 07/11/18 09:07 Blood Pressure 103/61 07/11/18 09:07 O2 Sat by Pulse Oximetry (%) 98 07/11/18 09:00 Laboratory Tests 07/07/18 07/09/18 07/10/18 06:30 09:50 11:30 Total Bilirubin 3.0 H 2.7 H AST ALT 185 H Alkaline Phosphatase 07/11/18 06:00 Total Bilirubin 2.5 H AST 57 H ALT 100 H Alkaline Phosphatase 74 Constitutional: Calm ...Auscultate: Yes: Normoactive Bowel Sounds ...Palpate: Yes: Soft, Other (nontender) Labs: CBC, BMP 07/11/18 06:00 07/11/18 06:00 INR, PTT INR 1.88 (0.83-1.09) H 07/11/18 12:50 Fibrinogen 190.0 mg/dL (238-498) L 07/11/18 06:00 Assessment/Plan Impression: - Rick's LFT abnormalities reflect congestive hepatopathy but the transaminase elevations suggest a component of ischemic injury. I do not think that he has hepatic encephalopathy or cirhosis given the lack of splenomegaly and normal liver size. - History of colon adenoma - Diverticulosis Plan: -- Management of CHF will benefit the liver and should resolve the LFTs. -- Repeat colonoscopy in 2021 Problem List - Problems (1) Abnormal liver function tests Code(s): R94.5 - ABNORMAL RESULTS OF LIVER FUNCTION STUDIES (2) Hx of congestive cardiomyopathy Code(s): Z86.79 - PERSONAL HISTORY OF OTHER DISEASES OF THE CIRCULATORY SYSTEM (3) AICD (automatic cardioverter/defibrillator) present Code(s): Z95.810 - PRESENCE OF AUTOMATIC (IMPLANTABLE) CARDIAC DEFIBRILLATOR (4) Colon adenoma Code(s): D12.6 - BENIGN NEOPLASM OF COLON, UNSPECIFIED (5) History of laparoscopic cholecystectomy Code(s): Z90.49 - ACQUIRED ABSENCE OF OTHER SPECIFIED PARTS OF DIGESTIVE TRACT (6) Delirium due to another medical condition, acute, hyperactive Code(s): F05 - DELIRIUM DUE TO KNOWN PHYSIOLOGICAL CONDITION (7) Diabetes mellitus type 2 in obese Code(s): E11.9 - TYPE 2 DIABETES MELLITUS WITHOUT COMPLICATIONS; E66.9 - OBESITY , UNSPECIFIED (8) Diverticulosis large intestine w/o perforation or abscess w/bleeding Code(s): K57.31 - DVRTCLOS OF LG INT W/O PERFORATION OR ABSCESS W BLEEDING (9) Gout Code(s): M10.9 - GOUT, UNSPECIFIED (10) History of heart artery stent Code(s): Z95.5 - PRESENCE OF CORONARY ANGIOPLASTY IMPLANT AND GRAFT (11) Jaundice Code(s): R17 - UNSPECIFIED JAUNDICE (12) Renal insufficiency Code(s): N28.9 - DISORDER OF KIDNEY AND URETER, UNSPECIFIED (13) Severe left ventricular systolic dysfunction Code(s): I51.9 - HEART DISEASE, UNSPECIFIED
[2018-07-11] MEDS: OLANZapine 2.5 MG TABLET PO SCH (21:37)
--- NOTE | 2018-07-11 21:59 | PN ---
Progress Note, Physician History of Present Illness: More interactive today. Denies pain/bleeding - Current Medication List Current Medications: Active Medications Budesonide/Formoterol Fumarate (Symbicort 160/4.5mcg -) 2 puff IH BID [facility] Last Admin: 07/11/18 21:37 Dose: 2 puff Carvedilol (Coreg -) 3.125 mg PO BID [facility] Last Admin: 07/11/18 21:37 Dose: 3.125 mg Cholecalciferol (Vitamin D3 -) 5,000 unit PO DAILY [facility] Last Admin: 07/11/18 10:24 Dose: 5,000 unit Docusate Sodium (Colace -) 100 mg PO BID [facility] Last Admin: 07/11/18 21:37 Dose: 100 mg Febuxostat (Uloric -) 40 mg PO DAILY [facility] Last Admin: 07/11/18 10:24 Dose: 40 mg Amino Acids (Clinimix -) 1,000 mls @ 42 mls/hr IV Q23H [facility] Last Admin: 07/11/18 12:20 Dose: Not Given Insulin Aspart (Novolog Vial Sliding Scale -) 1 vial SQ ACHS [facility]; Protocol Last Admin: 07/11/18 21:37 Dose: Not Given Olanzapine (Zyprexa -) 2.5 mg PO HS [facility] Last Admin: 07/11/18 21:37 Dose: 2.5 mg Polyethylene Glycol (Miralax (For Daily Use) -) 17 gm PO DAILY PRN PRN Reason: CONSTIPATION Last Admin: 07/11/18 10:26 Dose: 17 grams Sodium Bicarbonate (Sodium Bicarbonate -) 650 mg PO BID [facility] Last Admin: 07/11/18 21:37 Dose: 650 mg - Objective Vital Signs: Vital Signs Temperature 97.1 F L 07/11/18 20:33 Pulse Rate 120 H 07/11/18 20:33 Respiratory Rate 22 H 07/11/18 20:33 Blood Pressure 123/66 07/11/18 20:33 O2 Sat by Pulse Oximetry (%) 98 07/11/18 09:00 Constitutional: Yes: No Distress Cardiovascular: Yes: Regular Rate and Rhythm, Varicosities Respiratory: Yes: CTA Bilaterally Gastrointestinal: Yes: Soft. No: Tenderness Edema: No Integumentary: Yes: Rash (ecchymosis over abdomen, back, unchanged) Labs: CBC, BMP 07/11/18 06:00 07/11/18 06:00 INR, PTT INR 1.88 (0.83-1.09) H 07/11/18 12:50 Fibrinogen 190.0 mg/dL (238-498) L 07/11/18 06:00 Assessment/Plan 77M with HTN, HLD, CAD with LV dysfunction, s/p AICD, COPD, CKD IV, admitted with generalized weakness, poor PO intake, hypotension. Hematology following for petechiae and ecchymosis, prolonged PT/PTT, mild thrombocytopenia. Ddx includes liver disease, vit k deficiency, DIC. INR 1.4 this am, ?repat 1.8; PTT normal, fibrinogen 190 Mixing studies pending LA negative Awaiting FV, VII, VIII, X Would give Vit K 5 mg PO and continue to trend coags/fibrinogne
[2018-07-12] MEDS: INSULIN SLIDING SCALE (NOVOLOG) 1 VIAL SQ SCH ×4 (06:21→22:19)
[2018-07-12 07:30] LABS: BASO % 0.1 % (0-2.0); EOS % 0.2 % (0-4.5); HEMATOCRIT 42.1 % (35.4-49); HEMOGLOBIN 13.2 GM/dL (11.7-16.9); MCH 29.3 pg (25.7-33.7); MCHC 31.3 g/dl (32.0-35.9); MEAN CELL VOLUME 93.6 fl (80-96); MONO % 4.3 % (3.8-10.2); NEUT % 76.4 % (42.8-82.8); PLATELET COUNT 108 K/MM3 (134-434); RDW 16.4 % (11.9-15.9); WHITE BLOOD COUNT 7.6 K/mm3 (4.0-10.0)
[2018-07-12 07:50] LABS: CALCIUM 8.8 mg/dL (8.5-10.1); MAGNESIUM 3.6 mg/dL (1.8-2.4); PHOSPHOROUS 5.2 mg/dL (2.5-4.9); POTASSIUM 5.4 mmol/L (3.5-5.1)
[2018-07-12] MEDS ORDERED: PT OWN MED DRAWER 7, Y5N ONE (09:15)
[2018-07-12] MEDS: CARVEDILOL 3.125 MG TABLET (FP) PO SCH ×2 (09:17→22:13)
[2018-07-12] MEDS: DOCUSATE SODIUM 100 MG CAPSULE (FP) PO SCH (09:17)
[2018-07-12] MEDS: SODIUM BICARBONATE 650 MG TABLET PO SCH ×2 (09:17→22:13)
[2018-07-12] MEDS: CHOLECALCIFEROL (VIT D3) 1,000 UNIT (25 MCG) TABLET PO SCH (09:17)
[2018-07-12] MEDS: BUDESONIDE/FORMETEROL FUMARATE 160/4.5 mcg INHALER IH SCH ×2 (09:18→22:19)
[2018-07-12] MEDS: FEBUXOSTAT 40 MG TAB PO SCH (09:18)
[2018-07-12] MEDS ORDERED: oxyCODONE HCL 5 MG TABLET PO PRN ×2 (11:15→11:16)
[2018-07-12] MEDS ORDERED: morphine SULFATE 4 MG/ML VIAL IVPUSH PRN (11:17)
[2018-07-12] MEDS ORDERED: DOCUSATE SODIUM 100 MG CAPSULE (FP) PO SCH (11:30)
--- NOTE | 2018-07-12 12:03 | PN.GI ---
GI Progress Note Subjective: Pt seen/examined at bedside, feeling better, asking for juice. Denies abdominal pain, n/v, fever/chills. No bms reported yet today. More alert/interactive per notes. - Objective Vital Signs: Vital Signs Temperature 97.1 F L 07/11/18 20:33 Pulse Rate 120 H 07/11/18 20:33 Respiratory Rate 22 H 07/11/18 20:33 Blood Pressure 123/66 07/11/18 20:33 O2 Sat by Pulse Oximetry (%) 98 07/11/18 09:00 Constitutional: Well Nourished, No Distress, Calm Cardiovascular: Yes: WNL, Regular Rate and Rhythm Respiratory: Yes: WNL, Regular, CTA Bilaterally ...Palpate: Yes: Other (Abd soft, nt, nd) Labs: CBC, BMP 07/12/18 06:30 07/12/18 06:30 INR, PTT INR 1.88 (0.83-1.09) H 07/11/18 12:50 Fibrinogen 191.0 mg/dL (238-498) L 07/12/18 06:30 Problem List - Problems (1) Abnormal liver function tests Assessment/Plan: 77y male h/o DM, CKD, HTN, CAD, CHF s/p AICD, prior cholecystectomy presents with increased weakness and altered mentation with elevated LFTs. Remote etoh use reported, pt denies recent consumption. Coagulopathy and thrombocytopenia also noted. LFTs were normal on 06/21, now improving and normal appearing appearing liver on imaging, therefore likely multifactorial in setting of cardiac dysfunction (marked BNP elevated noted), possible ischemic component in setting of hypotension, vs medications (?febuxostat, though appears to have been taking previously) vs underlying NAFLD vs biliary obstruction though low suspicion. Hepatitis panel negative. -Continue to closely monitor LFT trend (none yet today, ordered for am) -Pt unable to have MRCP and prior CT also limited without contrast - could repeat US if LFTs remain elevated to further assess for biliary dilation/ obstructive process, and if unable to have contrast enhanced CT is setting of renal dysfunction -Continue hematology workup -Check fibrosure for further assessment of underlying liver fibrosis (ordered) Code(s): R94.5 - ABNORMAL RESULTS OF LIVER FUNCTION STUDIES
[2018-07-12] MEDS ORDERED: SODIUM POLYSTYRENE SULFONATE 15 GM/60 ML BOTTLE PO ONE (12:45)
--- NOTE | 2018-07-12 13:16 | PN ---
Physical Exam: SUBJECTIVE: Patient seen and examined at bedside. no complaints. denies cp, sob , fever, n/v/d. pt noted by nursing staff to be pulling at IVs and refusing IVs. Pt cont to take his clothes off and lays in bed naked. In general confused/ forgetful, fatigued, lethargic, however more alert today OBJECTIVE: Vital Signs Period Temp Pulse Resp BP Sys/Robbins Pulse Ox Last 24 Hr 97.1 F-97.9 F 80-120 20-22 90-180/61-77 GENERAL:AOX 1-2, NAD. In general confused/forgetful, fatigued, lethargic, however more alert today. cont to take his clothes off and lays in bed naked. HEAD: NCAT EYES: Pupils equal, round and reactive to light, extraocular movements intact EARS, NOSE, THROAT: MMM LUNGS: CTAB HEART: RRR, no murmurs heard, defribilator in LUQ ABDOMEN: Soft, NTND, normoactive bowel sounds, no guarding, no rebound, no masses. large ring like purple ecchymosis in umbilical region along w/ petechia along abdomen (appears to be fading in color but spreading in surface area along abd), chest and possibly legs. LOWER EXTREMITIES: 2+ pulses, warm, well-perfused. No calf tenderness. No peripheral edema. NEUROLOGICAL: Cranial nerves II-XII intact. PSYCHIATRIC: Cooperative. Good eye contact. Appropriate mood and affect. SKIN: Warm, dry, normal turgor, no rashes or lesions noted, normal capillary refill. Laboratory Results - last 24 hr 07/11/18 07/11/18 07/12/18 16:57 20:59 05:54 WBC RBC Hgb Hct MCV MCH MCHC RDW Plt Count MPV Absolute Neuts (auto) Neutrophils % Lymphocytes % Monocytes % Eosinophils % Basophils % Nucleated RBC % PTT (Actin FS) Fibrinogen Sodium Potassium Chloride Carbon Dioxide Anion Gap BUN Creatinine Est GFR (CKD-EPI)AfAm Est GFR (CKD-EPI)NonAf POC Glucometer 118 116 142 Random Glucose Calcium Phosphorus Magnesium 07/12/18 07/12/18 07/12/18 06:30 06:30 06:30 WBC 7.6 RBC 4.50 Hgb 13.2 Hct 42.1 MCV 93.6 MCH 29.3 MCHC 31.3 L RDW 16.4 H Plt Count 108 L MPV 9.0 Absolute Neuts (auto) 5.8 Neutrophils % 76.4 Lymphocytes % 19.0 Monocytes % 4.3 Eosinophils % 0.2 D Basophils % 0.1 Nucleated RBC % 7 H PTT (Actin FS) Fibrinogen 191.0 L Sodium 140 Potassium 5.4 H Chloride 108 H Carbon Dioxide 18 L Anion Gap 14 BUN 101 H Creatinine 3.0 H Est GFR (CKD-EPI)AfAm 22.35 Est GFR (CKD-EPI)NonAf 19.28 POC Glucometer Random Glucose 147 H Calcium 8.8 Phosphorus 5.2 H Magnesium 3.6 H 07/12/18 07/12/18 06:30 11:54 WBC RBC Hgb Hct MCV MCH MCHC RDW Plt Count MPV Absolute Neuts (auto) Neutrophils % Lymphocytes % Monocytes % Eosinophils % Basophils % Nucleated RBC % PTT (Actin FS) 36.8 H Fibrinogen Sodium Potassium Chloride Carbon Dioxide Anion Gap BUN Creatinine Est GFR (CKD-EPI)AfAm Est GFR (CKD-EPI)NonAf POC Glucometer 159 Random Glucose Calcium Phosphorus Magnesium Active Medications Generic Name Dose Route Start Last Admin Trade Name Freq PRN Reason Stop Dose Admin Budesonide/Formoterol Fumarate 2 puff 07/01/18 10:00 07/12/18 09:18 Symbicort 160/4.5mcg - IH 2 puff BID [facility] Administration Carvedilol 3.125 mg 07/09/18 22:15 07/12/18 09:17 Coreg - PO 3.125 mg BID [facility] Administration Cholecalciferol 5,000 unit 07/07/18 16:30 07/12/18 09:17 Vitamin D3 - PO 5,000 unit DAILY [facility] Administration Docusate Sodium 100 mg 07/12/18 11:30 Colace - PO DAILY [facility] Febuxostat 40 mg 07/01/18 12:00 07/12/18 09:18 Uloric - PO 40 mg DAILY [facility] Administration Amino Acids 1,000 mls @ 42 mls/hr 07/07/18 15:15 07/11/18 12:20 Clinimix - IV Not Given Q23H [facility] Insulin Aspart 1 vial 07/01/18 07:00 07/12/18 12:04 Novolog Vial Sliding Scale - SQ Not Given ACHS [facility] Protocol Morphine Sulfate 4 mg 07/12/18 11:17 Morphine Sulfate IVPUSH Q3H PRN PAIN LEVEL 7 - 10 Olanzapine 2.5 mg 07/09/18 22:00 07/11/18 21:37 Zyprexa - PO 2.5 mg HS [facility] Administration Oxycodone HCl 5 mg 07/12/18 11:15 Roxicodone - PO Q3H PRN PAIN LEVEL 1 - 3 Oxycodone HCl 10 mg 07/12/18 11:16 Roxicodone - PO Q3H PRN PAIN LEVEL 4 - 6 Polyethylene Glycol 17 gm 07/10/18 13:04 07/11/18 10:26 Miralax (For Daily Use) - PO 17 grams DAILY PRN Administration CONSTIPATION Sodium Bicarbonate 650 mg 07/03/18 10:00 07/12/18 09:17 Sodium Bicarbonate - PO 650 mg BID [facility] Administration [id number] CT/ABDOMEN & PELVIS CT W/O CONTR HISTORY PROVIDED: Rule out bleed TECHNIQUE: Sequential axial images were obtained from the domes of the diaphragm through the symphysis pubis. The study is markedly limited without the use of any contrast material. There are bilateral pleural effusions, right greater than left. The heart is enlarged. No acute infiltrates are identified. There is a trace amount of ascites about the liver. The liver, spleen, pancreas, adrenal glands and kidneys demonstrate no gross abnormalities. Small renal cysts are present bilaterally. The gallbladder has been removed. There is no evidence of intra-abdominal or retroperitoneal lymphadenopathy or fluid collections. There is no evidence of pneumoperitoneum, bowel obstruction or intra-abdominal abscess. There is no CT evidence of acute appendicitis There is extensive diverticulosis coli with no evidence of acute diverticulitis. Examination of the pelvis demonstrates no evidence of pelvic masses, fluid collections or lymphadenopathy. The prostate gland is enlarged measuring 6.2 x 5.4 x 5.5 cm. There is no evidence of acute bony pathology. IMPRESSION: 1. Bilateral pleural effusions. 2. Trace ascites. 3. Extensive diverticulosis coli. 4. Prostatic enlargement. 5. No acute pathology within the abdomen or pelvis. Please see above discussion. ASSESSMENT/PLAN: 77 y/o M PMH HTN, HLD, LV dysfunction/CHF, CKD 4, CAD s/p stents, AK s/p defribilator, gout, DM, COPD due to smoking history?, who presented from Dr. Hood office with Weakness, poor PO intake, hypotension and found to have increasing confusion and ELLIOTT. There appears to have been a miscommunication between what bed bug exterminator recommended and what the daughter gave. It appears as though the daughter continued to give the Lasix even though the patient was not supposed to be doing so. daughter has been concerned for a while about her father having dementia, on last admission pt was referred to Dr Munoz for an outpt dementia eval #? Metabolic encephalopathy vs suspected worsening dementia, poor PO intake. pt noted to be pulling at IVs and refusing blood draws -Consulted NeurologyTammy: suspects likely underlying Alzheimer vs frontotemporal dementia with superimposed metabolic encephalopathy with generalized weakness, poor cardiac status likely contributory as well. per neuro , no focality to suggest new cerebral ischemic event, no evidence of seizures, meningitis, encephalitis etc -Dr. Connolly consulted -CT head w/o acute changes -MRI is not an option since has a PPM/defibrilator -encourage PO hydration, started on clinimix by nephro given his worsening dementia state and poor po intake -ammonia fluctuating but unlikely to be contributing to AMS, no need for lactulose, GI recs appreciated -cont to hold gabapentin to avoid worsening confusion, neuro recs appreciated -Vit B12, Folic acid elevated -ucx, RPR neg -psych consulted -c/w zyprexa per psych -remote sensing specialist consult -ongoing GOC with daughter regarding PEG vs comfort care #new petechia and abdominal echymosis w/ elevated INR 1.79 (not on AC) - unclear etiology. plt are nl/stable. H/H remains stable at baseline. no obvious source of bleed. possibly 2/2 liver disease/injury and c/b vit K depletion 2/2 poor po intake/malabsorbtion. 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 nephro and heme recs appreciated, elevated BUN may be contributing but unclear at this time as levels of 100 may cause platelet dsfx but unclear if this is what is causing his bruising. 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, heme recs appreciated -ESR 2, CRP 2.3 -s/p vit K 1 mg sq #ELLIOTT on CKD stage4 2/2 volume depletion, baseline Cr is 1.8-2 - 2.9...2.8...2.6...3, poor po intake and not receiving clinimix or IVF due to pulling his IVs -nephro consulted, Sushil -UA, MM immuno w/u neg -FeUrea was 38.5% indicating slight tubular dysfunction -hold ACEi and diuretics for now -encourage PO hydration, started on clinimix by nephro given his worsening dementia state and poor po intake -c/w PO bicarbonte for metabolic acidosis #CHF with Severe LV dysfunction: not likely an acute issue -EKG was essentially unchanged since prior -cardio consult, Evy for optimization of HF meds, pt noted here w/ slightly low BP -carvedilol resumed at bid per cardio -hold ASA in setting of petechia and echymosis #Acute Transaminitis w/ elevated INR 1.79: likely 2/2 hepatic congestion 2/2 CHF w/ severe low EF, however component of ischemic injury may be present in setting of hypotension in the setting of volume depletion. The patient is not on any significant hepatotoxic medications. GI consulted, Dr. Camacho, and don' t think that he has hepatic encephalopathy or cirhosis given the lack of splenomegaly and normal liver size. - LFTs downtrending -hepatitis panel unremarkable -Ultrasound of the RUQ: fatty liver vs hepatocellular disease -will hold lipitor until resolves -No need for rifaximin and lactulose and tx of CHF will benefit the liver and should improve the LFTs, GI recs appreciated -Repeat colonoscopy in 2021 oupt #Hx of gout with elevated Uric acid - no signs of gout c/w home febuxostat #elevated TSH, and FT4, -as per serologist most likely sick euthyroid. -will follow with as an outpatient, for further w/u #DM: chronic -hold diabetic meds -ISS -BGM ACHS #CAD: chronic -hold ASA in setting of petechia and echymosis #FEN -encourage PO hydration, started on clinimix by nephro given his worsening dementia state and poor po intake -replete prn -diabetic/sodium diet #Prophylaxis -hold SQH tid w/ petechia -scd b/l #Dispo -med surg -pt has bed at [facility], however holding off on dc until medically optimized -spoke w/ daughter regarding GOC...PEG and code status. she said she will think about it and d/w her family and let us know, hope for a definitive answer within 24hr Visit type - Emergency Visit Emergency Visit: Yes ED Registration Date: 07/01/18 Care time: The patient presented to the Emergency Department on the above date and was hospitalized for further evaluation of their emergent condition. - New Patient This patient is new to me today: Yes Date on this admission: 07/12/18 - Critical Care Critical Care patient: No
--- NOTE | 2018-07-12 13:28 | PN ---
Progress Note, Physician History of Present Illness: The patient is a 77YOM with a PMH of HTN, HLD, CKD, CAD s/p stents, TX s/p defibrillator, gout, COPD, hypothyroidism, and CHF who presents to the ER sent in by Dr. Connolly with generalized weakness, poor appetite, and after becoming hypotensive while in his office. Patient has had two recent admissions for dyspnea on exertion to rule out PE in this ED. 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 Denies fever, chills, cp, N/V/C/D or urinary symptoms. Allergies: NKDA Social Hx: Former smoker. Denies drug or alcohol use. PCP: Dr. Holden Renal: Dr. Yane Connolly PMH PMH of TX (?x 2), severe systolic LV dsyfunction with ICD placed ?2 yrs ago, HTN , HLD, CAD s/p stents, renal dysfunction, COPD (quit cigarettes 10 yrs ago) unintentional weight loss, per family, and gout who presents to the ER with shortness of breath. He was recently discharged from [facility] after being admitted for ?"small TX and levated troponin." (per pt, he was there for two nights). - Current Medication List Current Medications: Active Medications Budesonide/Formoterol Fumarate (Symbicort 160/4.5mcg -) 2 puff IH BID [facility] Last Admin: 07/12/18 09:18 Dose: 2 puff Carvedilol (Coreg -) 3.125 mg PO BID [facility] Last Admin: 07/12/18 09:17 Dose: 3.125 mg Cholecalciferol (Vitamin D3 -) 5,000 unit PO DAILY [facility] Last Admin: 07/12/18 09:17 Dose: 5,000 unit Docusate Sodium (Colace -) 100 mg PO DAILY [facility] Febuxostat (Uloric -) 40 mg PO DAILY [facility] Last Admin: 07/12/18 09:18 Dose: 40 mg Amino Acids (Clinimix -) 1,000 mls @ 42 mls/hr IV Q23H [facility] Last Admin: 07/11/18 12:20 Dose: Not Given Insulin Aspart (Novolog Vial Sliding Scale -) 1 vial SQ ACHS [facility]; Protocol Last Admin: 07/12/18 12:04 Dose: Not Given Morphine Sulfate (Morphine Sulfate) 4 mg IVPUSH Q3H PRN PRN Reason: PAIN LEVEL 7 - 10 Olanzapine (Zyprexa -) 2.5 mg PO HS [facility] Last Admin: 07/11/18 21:37 Dose: 2.5 mg Oxycodone HCl (Roxicodone -) 5 mg PO Q3H PRN PRN Reason: PAIN LEVEL 1 - 3 Oxycodone HCl (Roxicodone -) 10 mg PO Q3H PRN PRN Reason: PAIN LEVEL 4 - 6 Polyethylene Glycol (Miralax (For Daily Use) -) 17 gm PO DAILY PRN PRN Reason: CONSTIPATION Last Admin: 07/11/18 10:26 Dose: 17 grams Sodium Bicarbonate (Sodium Bicarbonate -) 650 mg PO BID [facility] Last Admin: 07/12/18 09:17 Dose: 650 mg - Objective Vital Signs: Vital Signs Temperature 97.1 F L 07/11/18 20:33 Pulse Rate 120 H 07/11/18 20:33 Respiratory Rate 22 H 07/11/18 20:33 Blood Pressure 123/66 07/11/18 20:33 O2 Sat by Pulse Oximetry (%) 98 07/11/18 09:00 Eyes: Yes: WNL, Conjunctiva Clear, EOM Intact HENT: Yes: WNL, Atraumatic, Normocephalic Neck: Yes: WNL, Supple, Trachea Midline Cardiovascular: Yes: WNL, Regular Rate and Rhythm Respiratory: Yes: WNL, Regular, CTA Bilaterally Gastrointestinal: Yes: WNL, Normal Bowel Sounds Genitourinary: Yes: WNL Musculoskeletal: Yes: WNL Extremities: Yes: WNL Edema: No Integumentary: Yes: WNL Neurological: Yes: WNL, Alert, Oriented ...Motor Strength: WNL Psychiatric: Yes: WNL Labs: CBC, BMP 07/12/18 06:30 07/12/18 06:30 INR, PTT INR 1.88 (0.83-1.09) H 07/11/18 12:50 Fibrinogen 191.0 mg/dL (238-498) L 07/12/18 06:30 Problem List - Problems (1) ELLIOTT (acute kidney injury) Code(s): N17.9 - ACUTE KIDNEY FAILURE, UNSPECIFIED (2) Elevated transaminase level Code(s): R74.0 - NONSPEC ELEV OF LEVELS OF TRANSAMNS & LACTIC ACID DEHYDRGNSE (3) Hypotension Code(s): I95.9 - HYPOTENSION, UNSPECIFIED Qualifiers: Qualified Code(s): I95.9 - Hypotension, unspecified (4) Weakness Code(s): R53.1 - WEAKNESS (5) Acute on chronic renal insufficiency Code(s): N28.9 - DISORDER OF KIDNEY AND URETER, UNSPECIFIED; N18.9 - CHRONIC KIDNEY DISEASE, UNSPECIFIED (6) Anemia Code(s): D64.9 - ANEMIA, UNSPECIFIED Qualifiers: Qualified Code(s): D64.9 - Anemia, unspecified (7) Atypical chest pain Code(s): R07.89 - OTHER CHEST PAIN (8) COPD (chronic obstructive pulmonary disease) Code(s): J44.9 - CHRONIC OBSTRUCTIVE PULMONARY DISEASE, UNSPECIFIED (9) Cardiac arrhythmia Code(s): I49.9 - CARDIAC ARRHYTHMIA, UNSPECIFIED (10) Chest wall pain Code(s): R07.89 - OTHER CHEST PAIN (11) Colonic adenoma Code(s): D12.6 - BENIGN NEOPLASM OF COLON, UNSPECIFIED (12) Coronary arteriosclerosis Code(s): I25.10 - ATHSCL HEART DISEASE OF [place] CORONARY ARTERY W/O ANG PCTRS (13) DVT prophylaxis Code(s): [id number] - (14) Diabetes mellitus type 2 in obese Code(s): E11.9 - TYPE 2 DIABETES MELLITUS WITHOUT COMPLICATIONS; E66.9 - OBESITY , UNSPECIFIED (15) Dilated bile duct Code(s): K83.8 - OTHER SPECIFIED DISEASES OF BILIARY TRACT (16) Diverticulosis large intestine w/o perforation or abscess w/bleeding Code(s): K57.31 - DVRTCLOS OF LG INT W/O PERFORATION OR ABSCESS W BLEEDING (17) Dyspnea Code(s): R06.00 - DYSPNEA, UNSPECIFIED Qualifiers: Qualified Code(s): R06.00 - Dyspnea, unspecified (18) Elevated d-dimer Code(s): R79.89 - OTHER SPECIFIED ABNORMAL FINDINGS OF BLOOD CHEMISTRY (19) Full code status Code(s): Z78.9 - OTHER SPECIFIED HEALTH STATUS (20) Gout Code(s): M10.9 - GOUT, UNSPECIFIED (21) Gout attack Code(s): M10.9 - GOUT, UNSPECIFIED (22) History of heart artery stent Code(s): Z95.5 - PRESENCE OF CORONARY ANGIOPLASTY IMPLANT AND GRAFT (23) Hyperkalemia Code(s): E87.5 - HYPERKALEMIA (24) Hyperlipidemia Code(s): E78.5 - HYPERLIPIDEMIA, UNSPECIFIED (25) Hypertension Code(s): I10 - ESSENTIAL (PRIMARY) HYPERTENSION (26) Hypervolemia Code(s): E87.70 - FLUID OVERLOAD, UNSPECIFIED Qualifiers: Qualified Code(s): E87.70 - Fluid overload, unspecified (28) ICD (implantable cardioverter-defibrillator) in place Code(s): Z95.810 - PRESENCE OF AUTOMATIC (IMPLANTABLE) CARDIAC DEFIBRILLATOR (29) Ileus Code(s): K56.7 - ILEUS, UNSPECIFIED (30) Insomnia Code(s): G47.00 - INSOMNIA, UNSPECIFIED (31) Jaundice Code(s): R17 - UNSPECIFIED JAUNDICE (32) Knee effusion, left Code(s): M25.462 - EFFUSION, LEFT KNEE (33) Left arm numbness Code(s): R20.0 - ANESTHESIA OF SKIN (34) Left upper quadrant pain Code(s): R10.12 - LEFT UPPER QUADRANT PAIN (35) Myocardial infarct Code(s): I21.9 - ACUTE MYOCARDIAL INFARCTION, UNSPECIFIED (36) Neck muscle strain Code(s): S16.1XXA - STRAIN OF MUSCLE, FASCIA AND TENDON AT NECK LEVEL, INIT (37) Neck pain Code(s): M54.2 - CERVICALGIA (38) Pacemaker complications Code(s): T82.9XXA - UNSP COMP OF CARDIAC AND VASCULAR PROSTH DEV/GRFT, INIT (39) Polyarthritis Code(s): M13.0 - POLYARTHRITIS, UNSPECIFIED (40) Renal dysfunction Code(s): N28.9 - DISORDER OF KIDNEY AND URETER, UNSPECIFIED (41) Renal insufficiency Code(s): N28.9 - DISORDER OF KIDNEY AND URETER, UNSPECIFIED (42) Severe left ventricular systolic dysfunction Code(s): I51.9 - HEART DISEASE, UNSPECIFIED (43) Shortness of breath Code(s): R06.02 - SHORTNESS OF BREATH (44) Systolic CHF Code(s): I50.20 - UNSPECIFIED SYSTOLIC (CONGESTIVE) HEART FAILURE (45) Weight loss, unintentional Code(s): R63.4 - ABNORMAL WEIGHT LOSS Assessment/Plan - Problems (1) Acute on chronic systolic and diastolic heart failure, NYHA class 1 Assessment/Plan: Carvedilol reduced to 3.125 mg daily due to hypotension, ?change in mental status. ACEI, spironolactone held due to renal dysfunction. F/u BUN/Cr, electrolytes, daily wt, Is and Os. 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 (2) Weakness Code(s): R53.1 - WEAKNESS (3) Acute on chronic renal insufficiency Code(s): N28.9 - DISORDER OF KIDNEY AND URETER, UNSPECIFIED; N18.9 - CHRONIC KIDNEY DISEASE, UNSPECIFIED (4) COPD (chronic obstructive pulmonary disease) Code(s): J44.9 - CHRONIC OBSTRUCTIVE PULMONARY DISEASE, UNSPECIFIED (5) Gout Code(s): M10.9 - GOUT, UNSPECIFIED (6) History of heart artery stent Code(s): Z95.5 - PRESENCE OF CORONARY ANGIOPLASTY IMPLANT AND GRAFT (7) Hyperlipidemia Code(s): E78.5 - HYPERLIPIDEMIA, UNSPECIFIED (8) Hypertension Code(s): I10 - ESSENTIAL (PRIMARY) HYPERTENSION (9) ICD (implantable cardioverter-defibrillator) in place Code(s): Z95.810 - PRESENCE OF AUTOMATIC (IMPLANTABLE) CARDIAC DEFIBRILLATOR
--- NOTE | 2018-07-12 13:53 | PN ---
Progress Note (short form) - Note Progress Note: Renal follow up for ELLIOTT Pt seen and examined at the bedside sitting in chair awake, alert, still confused eating a little food family at the bedside Vital Signs Temperature 97.1 F L 07/11/18 20:33 Pulse Rate 120 H 07/11/18 20:33 Respiratory Rate 22 H 07/11/18 20:33 Blood Pressure 123/66 07/11/18 20:33 O2 Sat by Pulse Oximetry (%) 98 07/11/18 09:00 Intake & Output 07/09/18 07/10/18 07/11/18 07/12/18 23:59 23:59 23:59 23:59 Intake Total 454 033 7432 200 Output Total 1120 250 100 Balance -387 291 2349 200 Weight 86.409 kg 86.455 kg 84.964 kg NAD, confused CTA, no rales soft NT/ND no LE edmea, clubbing or cyanosis no bladder distension CBC, BMP 07/12/18 06:30 07/12/18 06:30 Current Medications Budesonide/Formoterol Fumarate (Symbicort 160/4.5mcg -) 2 puff IH BID [facility] Last Admin: 07/12/18 09:18 Dose: 2 puff Carvedilol (Coreg -) 3.125 mg PO BID [facility] Last Admin: 07/12/18 09:17 Dose: 3.125 mg Cholecalciferol (Vitamin D3 -) 5,000 unit PO DAILY [facility] Last Admin: 07/12/18 09:17 Dose: 5,000 unit Febuxostat (Uloric -) 40 mg PO DAILY [facility] Last Admin: 07/12/18 09:18 Dose: 40 mg Amino Acids (Clinimix -) 1,000 mls @ 42 mls/hr IV Q23H [facility] Last Admin: 07/11/18 12:20 Dose: Not Given Insulin Aspart (Novolog Vial Sliding Scale -) 1 vial SQ ACHS [facility]; Protocol Last Admin: 07/12/18 12:04 Dose: Not Given Olanzapine (Zyprexa -) 2.5 mg PO HS [facility] Last Admin: 07/11/18 21:37 Dose: 2.5 mg Polyethylene Glycol (Miralax (For Daily Use) -) 17 gm PO DAILY PRN PRN Reason: CONSTIPATION Last Admin: 07/11/18 10:26 Dose: 17 grams Sodium Bicarbonate (Sodium Bicarbonate -) 650 mg PO BID [facility] Last Admin: 07/12/18 09:17 Dose: 650 mg 77 year old gentleman with hx of CKD stage 3 (baseline Cr 1.8-2), CAD s/p PCI, CHF with very low LVEF, hyperlipidemia, hypertension, AICD placement, DM, COPD who presented from Dr. Connolly's office with hypotension and found to have increasing confusion and ELLIOTT. #ELLIOTT on CKD due to volume depletion #Hypotension #Altered mental status r/o dementia vs. other cause #DM #Hypertension #CHF #metabolic acidosis with respiratory compensation Renal function gradually worsening in setting of poor oral intake continue to suspect that he is intravascular volume depleted however pt has not been able to get continuous IVF spoke with nurse, will attempt to give IVF overnight tonight if mental status does not improve and renal function continues to worsen may require short term dialysis family considering feeding tube insertion for feeding Thank you Will follow Mikhail Ling DO
--- NOTE | 2018-07-12 15:44 | PN ---
Teaching Attending Note Name of Resident: Luca Amaral ATTENDING PHYSICIAN STATEMENT I saw and evaluated the patient. I reviewed the resident's note and discussed the case with the resident. I agree with the resident's findings and plan as documented. SUBJECTIVE: No fever or chills . No WHITE . no pain. OBJECTIVE: NAD ,awake, cooperative, sitting in a chair. CV: RRR, no MRG Lungs: CTAB Abd: soft, NT, ND ,NLBS, ecchymosis in periambilical area and RLQ, LLQ Ext : no edema or erythema A/P 77 y/o man with h/o HTN, HLP, systolic CHF, COPD, CKD, CAD s/p stenting, NM, ICD , gout, DM, and other medical problems who presented with general weakness. 1- Encephalopathy: dementia, volume depletion, medications, and uremia. more awake today. - zyprexa only at HS 2- Petechiae and ecchymosis: with elevated PT and PTT. could be multifactorial - mixing studiy pending - possible low grade DIC. received low po Vt K yesterday - Factor V and X pending - factor VII, and VIII need aurthorization . will d/w heme - cont to hold aspirin and DVT PX. - repeat fibrinogen today. repeat PT,PTT tomorrow 3- ELLIOTT on CKD : Cont to be volume depleted, with poor po intake. ANCA is neg , SPEP neg for M spike renal function is worse. - cont bicarb - family is considering PEG for hydration - trial of IVF this pm, if patient allows 4- Transaminitis: possible liver disease. appreciate dr. Camacho help. No need for rifaximin and lactulose as low suspicion for hepatic encephalopathy and risk for volume depletion with poor po intake 5- Mild hypotension:due to volume depletion 6- H/o systlic CHF: hold diuresis in setting of volume depletion. cont coreg, hold for hypotension 7- Euthyroid sick syndrome: repeat as out pt 8- DM: cont SSI HLOC Daughter is leaning towards a PEG tube , but will give a definite answer tomorrow.
--- NOTE | 2018-07-12 17:50 | PN ---
Progress Note (short form) - Note Progress Note: PATIENT SEEN AND EXAMINED REMAINS LETHARGIC Last Vital Signs Temp Pulse Resp BP Pulse Ox 97.7 F 88 20 87/60 L 98 07/12/18 10:00 07/12/18 10:00 07/12/18 10:00 07/12/18 10:00 07/11/18 09:00 ABDOMINAL WALL FADING PETECHIAL -PURPURIC ERUPTION LAB PROLONGED PT/PTT NO EVIDENCE OF LUPUS ANTICOAGULANT PROLONGED DRVTT WHICH CORRECTED WITH MIXING MAY BE SECONDARY TO LOW FIBRINOGEN WHICH MAY BE SECONDARY TO LIVER DISEASE. MIXING STUDIES STILL PENDING FACTOR VIII LEVEL WOULD BE HELPFUL IF IT IS LOW WITH FACTORS V AND X IT WOULD BE CONSISTENT WITH LOW GRADE DIC. FACOR VII MAY BE LOW FROM LIVER DISEASE ALONE. WILL SPEAK WITH PATH RE FACTOR VIIL LEVEL.
[2018-07-12] MEDS ORDERED: SODIUM CHLORIDE 1,000 ML IV SCH (18:00)
[2018-07-12] MEDS ORDERED: INSULIN (NOVOLOG) ASPART 100 UNITS/ML 10ML VIAL ONE (20:32)
[2018-07-12] MEDS: OLANZapine 2.5 MG TABLET PO SCH (22:13)
[2018-07-13] MEDS: INSULIN SLIDING SCALE (NOVOLOG) 1 VIAL SQ SCH ×4 (06:45→23:20)
[2018-07-13] MEDS: AMINO ACIDS 4.25%/D5W 1,000 ML IV SCH ×2 (07:46→09:14)
[2018-07-13] MEDS ORDERED: PT OWN MED DRAWER 7, Y5N ONE (09:09)
[2018-07-13] MEDS: CHOLECALCIFEROL (VIT D3) 1,000 UNIT (25 MCG) TABLET PO SCH (09:11)
[2018-07-13] MEDS: BUDESONIDE/FORMETEROL FUMARATE 160/4.5 mcg INHALER IH SCH ×2 (09:11→22:44)
[2018-07-13] MEDS: FEBUXOSTAT 40 MG TAB PO SCH (09:11)
[2018-07-13] MEDS: CARVEDILOL 3.125 MG TABLET (FP) PO SCH ×2 (09:11→22:33)
[2018-07-13] MEDS: SODIUM BICARBONATE 650 MG TABLET PO SCH ×2 (09:11→22:33)
[2018-07-13 09:54] LABS: BASO % 0.1 % (0-2.0); EOS % 1.5 % (0-4.5); HEMATOCRIT 41.4 % (35.4-49); HEMOGLOBIN 12.7 GM/dL (11.7-16.9); MCH 29.1 pg (25.7-33.7); MCHC 30.7 g/dl (32.0-35.9); MEAN PLT VOLUME 9.2 fl (7.5-11.1); MONO % 4.4 % (3.8-10.2); PLATELET COUNT 82 K/MM3 (134-434); RBC 4.36 M/mm3 (4.00-5.60); RDW 16.7 % (11.9-15.9); WHITE BLOOD COUNT 7.8 K/mm3 (4.0-10.0)
[2018-07-13] MEDS ORDERED: DOCUSATE SODIUM 100 MG CAPSULE (FP) PO SCH (10:00)
[2018-07-13 10:17] LABS: INR 1.69 (0.83-1.09)
[2018-07-13 10:31] LABS: ALBUMIN 3.2 g/dl (3.4-5.0); BILIRUBIN,TOTAL 2.9 mg/dL (0.2-1); CALCIUM 8.6 mg/dL (8.5-10.1); CREATININE 2.8 mg/dL (0.55-1.3); MAGNESIUM 3.5 mg/dL (1.8-2.4); PHOSPHOROUS 5.2 mg/dL (2.5-4.9); POTASSIUM 4.5 mmol/L (3.5-5.1); TOT PROT 6.3 g/dl (6.4-8.2)
--- NOTE | 2018-07-13 12:52 | PN ---
Physical Exam: SUBJECTIVE: Patient seen and examined at bedside. no complaints. denies cp, sob , fever, n/v/d. pt noted by nursing staff to be pulling at IVs and refusing IVs. Pt cont to take his clothes off and lays in bed naked. In general confused/ forgetful, fatigued, lethargic, however more alert today OBJECTIVE: Vital Signs Period Temp Pulse Resp BP Sys/Robbins Pulse Ox Last 24 Hr 97.5 F-98.6 F 80-89 18-20 83-93/42-58 GENERAL:AOX 1-2, NAD. In general confused/forgetful, fatigued, lethargic, however more alert today. cont to take his clothes off and lays in bed naked. HEAD: NCAT EYES: PERRLA, EOMI EARS, NOSE, THROAT: MMM LUNGS: CTAB HEART: RRR, no murmurs heard, defribilator in LUQ ABDOMEN: Soft, NTND, normoactive bowel sounds, no guarding, no rebound, no masses. large ring like purple ecchymosis in umbilical region along w/ petechia along abdomen (appears to be fading in color but spreading in surface area along abd), chest and legs, improving LOWER EXTREMITIES: 2+ pulses, warm, well-perfused. No calf tenderness. No peripheral edema. NEUROLOGICAL: Cranial nerves II-XII intact. PSYCHIATRIC: Cooperative. SKIN: Warm, dry, normal turgor, no rashes or lesions noted, normal capillary refill. Laboratory Results - last 24 hr 07/07/18 07/07/18 07/11/18 06:30 06:30 06:00 WBC RBC Hgb Hct MCV MCH MCHC RDW Plt Count MPV Absolute Neuts (auto) Neutrophils % Lymphocytes % Monocytes % Eosinophils % Basophils % Nucleated RBC % PT with INR INR Saline-Adjusted PTT TNP PT Mixing Study 17.6 H PTT Patient/Cntrl Mix 29.6 PTT Normal Plasma Pre 27.9 Factor VII Activity 32 L Sodium Potassium Chloride Carbon Dioxide Anion Gap BUN Creatinine Est GFR (CKD-EPI)AfAm Est GFR (CKD-EPI)NonAf POC Glucometer Random Glucose Calcium Phosphorus Magnesium Total Bilirubin AST ALT Alkaline Phosphatase Total Protein Albumin 07/12/18 07/13/18 07/13/18 17:14 06:43 08:55 WBC RBC Hgb Hct MCV MCH MCHC RDW Plt Count MPV Absolute Neuts (auto) Neutrophils % Lymphocytes % Monocytes % Eosinophils % Basophils % Nucleated RBC % PT with INR INR Saline-Adjusted PTT PT Mixing Study PTT Patient/Cntrl Mix PTT Normal Plasma Pre Factor VII Activity Sodium 142 Potassium 4.5 Chloride 109 H Carbon Dioxide 21 Anion Gap 12 BUN 111 H* Creatinine 2.8 H Est GFR (CKD-EPI)AfAm 24.29 Est GFR (CKD-EPI)NonAf 20.96 POC Glucometer 215 92 Random Glucose 93 Calcium 8.6 Phosphorus 5.2 H Magnesium 3.5 H Total Bilirubin 2.9 H AST 60 H ALT 92 H Alkaline Phosphatase 72 Total Protein 6.3 L Albumin 3.2 L 07/13/18 07/13/18 07/13/18 08:55 08:55 11:48 WBC 7.8 RBC 4.36 Hgb 12.7 Hct 41.4 MCV 95.0 MCH 29.1 MCHC 30.7 L RDW 16.7 H Plt Count 82 L D MPV 9.2 Absolute Neuts (auto) 5.8 Neutrophils % 75.0 Lymphocytes % 19.0 Monocytes % 4.4 Eosinophils % 1.5 D Basophils % 0.1 Nucleated RBC % 0 PT with INR 20.00 H INR 1.69 H Saline-Adjusted PTT PT Mixing Study PTT Patient/Cntrl Mix PTT Normal Plasma Pre Factor VII Activity Sodium Potassium Chloride Carbon Dioxide Anion Gap BUN Creatinine Est GFR (CKD-EPI)AfAm Est GFR (CKD-EPI)NonAf POC Glucometer 236 Random Glucose Calcium Phosphorus Magnesium Total Bilirubin AST ALT Alkaline Phosphatase Total Protein Albumin Active Medications Generic Name Dose Route Start Last Admin Trade Name Freq PRN Reason Stop Dose Admin Budesonide/Formoterol Fumarate 2 puff 07/01/18 10:00 07/13/18 09:11 Symbicort 160/4.5mcg - IH 2 puff BID CLIVE Administration Carvedilol 3.125 mg 07/09/18 22:15 07/13/18 09:11 Coreg - PO 3.125 mg BID CLIVE Administration Cholecalciferol 5,000 unit 07/07/18 16:30 07/13/18 09:11 Vitamin D3 - PO 5,000 unit DAILY CLIVE Administration Febuxostat 40 mg 07/01/18 12:00 07/13/18 09:11 Uloric - PO 40 mg DAILY CLIVE Administration Amino Acids 1,000 mls @ 42 mls/hr 07/07/18 15:15 07/13/18 09:14 Clinimix - IV Not Given Q23H CLIVE Insulin Aspart 1 vial 07/01/18 07:00 07/13/18 11:57 Novolog Vial Sliding Scale - SQ 4 units ACHS CLIVE Administration Protocol Olanzapine 2.5 mg 07/09/18 22:00 07/12/18 22:13 Zyprexa - PO 2.5 mg HS CLIVE Administration Polyethylene Glycol 17 gm 07/10/18 13:04 07/11/18 10:26 Miralax (For Daily Use) - PO 17 grams DAILY PRN Administration CONSTIPATION Sodium Bicarbonate 650 mg 07/03/18 10:00 07/13/18 09:11 Sodium Bicarbonate - PO 650 mg BID CLIVE Administration [id number] CT/ABDOMEN & PELVIS CT W/O CONTR HISTORY PROVIDED: Rule out bleed TECHNIQUE: Sequential axial images were obtained from the domes of the diaphragm through the symphysis pubis. The study is markedly limited without the use of any contrast material. There are bilateral pleural effusions, right greater than left. The heart is enlarged. No acute infiltrates are identified. There is a trace amount of ascites about the liver. The liver, spleen, pancreas, adrenal glands and kidneys demonstrate no gross abnormalities. Small renal cysts are present bilaterally. The gallbladder has been removed. There is no evidence of intra-abdominal or retroperitoneal lymphadenopathy or fluid collections. There is no evidence of pneumoperitoneum, bowel obstruction or intra-abdominal abscess. There is no CT evidence of acute appendicitis There is extensive diverticulosis coli with no evidence of acute diverticulitis. Examination of the pelvis demonstrates no evidence of pelvic masses, fluid collections or lymphadenopathy. The prostate gland is enlarged measuring 6.2 x 5.4 x 5.5 cm. There is no evidence of acute bony pathology. IMPRESSION: 1. Bilateral pleural effusions. 2. Trace ascites. 3. Extensive diverticulosis coli. 4. Prostatic enlargement. 5. No acute pathology within the abdomen or pelvis. Please see above discussion. ASSESSMENT/PLAN: 77 y/o M PMH HTN, HLD, LV dysfunction/CHF, CKD 4, CAD s/p stents, [place] s/p defribilator, gout, DM, COPD due to smoking history?, who presented from Dr. Hood office with Weakness, poor PO intake, hypotension and found to have increasing confusion and ELLIOTT. There appears to have been a miscommunication between what bottle booth attendant recommended and what the daughter gave. It appears as though the daughter continued to give the Lasix even though the patient was not supposed to be doing so. daughter has been concerned for a while about her father having dementia, on last admission pt was referred to Dr Munoz for an outpt dementia eval #? Metabolic encephalopathy vs suspected worsening dementia, poor PO intake. pt noted to be pulling at IVs and refusing blood draws -Consulted NeurologyTammy: suspects likely underlying Alzheimer vs frontotemporal dementia with superimposed metabolic encephalopathy with generalized weakness, poor cardiac status likely contributory as well. per neuro , no focality to suggest new cerebral ischemic event, no evidence of seizures, meningitis, encephalitis etc -Dr. Connolly consulted -CT head w/o acute changes -MRI is not an option since has a PPM/defibrilator -encourage PO hydration, started on clinimix by nephro given his worsening dementia state and poor po intake -ammonia fluctuating but unlikely to be contributing to AMS, no need for lactulose, GI recs appreciated -cont to hold gabapentin to avoid worsening confusion, neuro recs appreciated -Vit B12, Folic acid elevated -ucx, RPR neg -psych consulted -c/w zyprexa per psych -frame opener consult -family has decided for PEG. -IR consulted for PEG -frame opener consult for calorie count #new petechia and abdominal echymosis w/ elevated INR 1.79 (not on AC) and thrombocytopenia - unclear etiology. plt are downtrending and today in the 80s ( baseline ~150-200). H/H remains stable at baseline. no obvious source of bleed. possibly 2/2 liver disease/injury and c/b vit K depletion 2/2 poor po intake/ malabsorbtion. 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 nephro and heme recs appreciated, elevated BUN may be contributing but unclear at this time as levels of 100 may cause platelet dsfx but unclear if this is what is causing his bruising. -heme/onc consult, [place] -corrected retic index is low indicating inadequate marrow response -CT A/P reviewed above, No acute pathology within the abdomen or pelvis -LDH, haptoglobin nl -hold ASA and SQH -P and C ANCA, HERB neg -Mixing study: PT is elevated and PTT is nl, also Factor VII percentage is low. is this an autoimmune process causing deficiency???, will need to touch base w/ heme -ESR 2, CRP 2.3 -s/p vit K 1 mg sq -will order HIT ab for cont downtrending of plt, ~50% decrease, in setting of recent Heparin use -frame opener consult for calorie count #ELLIOTT on CKD stage4 2/2 volume depletion, baseline Cr is 1.8-2 - 2.9...2.8...2.6...3...2.8, poor po intake and not receiving clinimix or IVF due to pulling his IVs -nephro consulted, Sushil PETE MM immuno w/u neg -FeUrea was 38.5% indicating slight tubular dysfunction -hold ACEi and diuretics for now -encourage PO hydration, started on clinimix by nephro given his worsening dementia state and poor po intake -c/w PO bicarbonte for metabolic acidosis #CHF with Severe LV dysfunction: not likely an acute issue -EKG was essentially unchanged since prior -cardio consult, Evy for optimization of HF meds, pt noted here w/ slightly low BP -carvedilol resumed at bid per cardio -hold ASA in setting of petechia and echymosis #Acute Transaminitis w/ elevated INR 1.79: likely 2/2 hepatic congestion 2/2 CHF w/ severe low EF, however component of ischemic injury may be present in setting of hypotension in the setting of volume depletion. The patient is not on any significant hepatotoxic medications. GI consulted, Dr. Camacho, and don' t think that he has hepatic encephalopathy or cirhosis given the lack of splenomegaly and normal liver size. - LFTs downtrending -hepatitis panel unremarkable -Ultrasound of the RUQ: fatty liver vs hepatocellular disease -will hold lipitor until resolves -No need for rifaximin and lactulose and tx of CHF will benefit the liver and should improve the LFTs, GI recs appreciated -Repeat colonoscopy in 2021 oupt #Hx of gout with elevated Uric acid - no signs of gout c/w home febuxostat #elevated TSH, and FT4, -as per volunteer coordinator most likely sick euthyroid. -will follow with as an outpatient, for further w/u #DM: chronic -hold diabetic meds -ISS -BGM ACHS #CAD: chronic -hold ASA in setting of petechia and echymosis #FEN -encourage PO hydration, started on clinimix by nephro given his worsening dementia state and poor po intake -replete prn -diabetic/sodium diet #Prophylaxis -hold SQH tid w/ petechia -scd b/l #Dispo -med surg -pt has bed at [facility], however holding off on dc until medically optimized -family has decided for PEG. Visit type - Emergency Visit Emergency Visit: Yes ED Registration Date: 07/01/18 Care time: The patient presented to the Emergency Department on the above date and was hospitalized for further evaluation of their emergent condition. - New Patient This patient is new to me today: Yes Date on this admission: 07/13/18 - Critical Care Critical Care patient: No
--- NOTE | 2018-07-13 13:09 | PN ---
Physical Exam: SUBJECTIVE: Patient seen and examined, sitting in a wheelchair, wants to go home. OBJECTIVE: Vital Signs Period Temp Pulse Resp BP Sys/Robbins Pulse Ox Last 24 Hr 97.5 F-98.6 F 80-89 18-20 83-93/42-58 GENERAL: Awake, answering questions, sleepy. HEAD: Normal with no signs of trauma, EYES: Sclera anicteric, conjunctiva clear, EOMI not assessed due to pt lethargy. EARS, NOSE, THROAT: Moist mucous membranes, no thrush, no exudates LUNGS: Breath sounds equal, clear to auscultation bilaterally HEART: Regular rate and rhythm, normal S1 and S2 ABDOMEN: Diffuse abdominal echymoses, no palpable purpura, soft, nontender, not distended, normoactive bowel sounds, no guarding, no rebound Laboratory Results - last 24 hr 07/07/18 07/07/18 07/11/18 06:30 06:30 06:00 WBC RBC Hgb Hct MCV MCH MCHC RDW Plt Count MPV Absolute Neuts (auto) Neutrophils % Lymphocytes % Monocytes % Eosinophils % Basophils % Nucleated RBC % PT with INR INR Saline-Adjusted PTT TNP PT Mixing Study 17.6 H PTT Patient/Cntrl Mix 29.6 PTT Normal Plasma Pre 27.9 Factor VII Activity 32 L Sodium Potassium Chloride Carbon Dioxide Anion Gap BUN Creatinine Est GFR (CKD-EPI)AfAm Est GFR (CKD-EPI)NonAf POC Glucometer Random Glucose Calcium Phosphorus Magnesium Total Bilirubin AST ALT Alkaline Phosphatase Total Protein Albumin 07/12/18 07/13/18 07/13/18 17:14 06:43 08:55 WBC RBC Hgb Hct MCV MCH MCHC RDW Plt Count MPV Absolute Neuts (auto) Neutrophils % Lymphocytes % Monocytes % Eosinophils % Basophils % Nucleated RBC % PT with INR INR Saline-Adjusted PTT PT Mixing Study PTT Patient/Cntrl Mix PTT Normal Plasma Pre Factor VII Activity Sodium 142 Potassium 4.5 Chloride 109 H Carbon Dioxide 21 Anion Gap 12 BUN 111 H* Creatinine 2.8 H Est GFR (CKD-EPI)AfAm 24.29 Est GFR (CKD-EPI)NonAf 20.96 POC Glucometer 215 92 Random Glucose 93 Calcium 8.6 Phosphorus 5.2 H Magnesium 3.5 H Total Bilirubin 2.9 H AST 60 H ALT 92 H Alkaline Phosphatase 72 Total Protein 6.3 L Albumin 3.2 L 07/13/18 07/13/18 07/13/18 08:55 08:55 11:48 WBC 7.8 RBC 4.36 Hgb 12.7 Hct 41.4 MCV 95.0 MCH 29.1 MCHC 30.7 L RDW 16.7 H Plt Count 82 L D MPV 9.2 Absolute Neuts (auto) 5.8 Neutrophils % 75.0 Lymphocytes % 19.0 Monocytes % 4.4 Eosinophils % 1.5 D Basophils % 0.1 Nucleated RBC % 0 PT with INR 20.00 H INR 1.69 H Saline-Adjusted PTT PT Mixing Study PTT Patient/Cntrl Mix PTT Normal Plasma Pre Factor VII Activity Sodium Potassium Chloride Carbon Dioxide Anion Gap BUN Creatinine Est GFR (CKD-EPI)AfAm Est GFR (CKD-EPI)NonAf POC Glucometer 236 Random Glucose Calcium Phosphorus Magnesium Total Bilirubin AST ALT Alkaline Phosphatase Total Protein Albumin Active Medications Generic Name Dose Route Start Last Admin Trade Name Freq PRN Reason Stop Dose Admin Budesonide/Formoterol Fumarate 2 puff 07/01/18 10:00 07/13/18 09:11 Symbicort 160/4.5mcg - IH 2 puff BID CLIVE Administration Carvedilol 3.125 mg 07/09/18 22:15 07/13/18 09:11 Coreg - PO 3.125 mg BID CLIVE Administration Cholecalciferol 5,000 unit 07/07/18 16:30 07/13/18 09:11 Vitamin D3 - PO 5,000 unit DAILY CLIVE Administration Febuxostat 40 mg 07/01/18 12:00 07/13/18 09:11 Uloric - PO 40 mg DAILY CLIVE Administration Amino Acids 1,000 mls @ 42 mls/hr 07/07/18 15:15 07/13/18 09:14 Clinimix - IV Not Given Q23H CLIVE Insulin Aspart 1 vial 07/01/18 07:00 07/13/18 11:57 Novolog Vial Sliding Scale - SQ 4 units ACHS CLIVE Administration Protocol Olanzapine 2.5 mg 07/09/18 22:00 07/12/18 22:13 Zyprexa - PO 2.5 mg HS CLIVE Administration Polyethylene Glycol 17 gm 07/10/18 13:04 07/11/18 10:26 Miralax (For Daily Use) - PO 17 grams DAILY PRN Administration CONSTIPATION Sodium Bicarbonate 650 mg 07/03/18 10:00 07/13/18 09:11 Sodium Bicarbonate - PO 650 mg BID CLIVE Administration ASSESSMENT/PLAN: This is a 77 yo M with PMH of HTN, HLD, HFREF s/p defibrillator, CKD stake 4, CAD+ [place] s/p pci stent, gout, DM, COPD, who presented due to failure to thrive. Admitted due to ELLIOTT and transaminitis in setting of volume depletion. echymoses on abdomen transaminitis elliott on ckd stage 4 HFREF CAD DM COPD HTN HLD gout Plan: The patient bleeding may be caused by liver disfunction (transaminitis) that affects factor 2,7,9,10. Mixing studies don't suggest inhibitor present like anticoagulant. We recommend to obtain factor 8 to r/o chronic DIC. Elevated BUN may suggest thrombocytopathy in uremic stat. The patient may benefit from Vit K but improvement will be transient. Will follow the patient. Thank you for the consultation. Problem List - Problems (1) Acute on chronic systolic and diastolic heart failure, NYHA class 1 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 (2) Elevated INR Code(s): R79.1 - ABNORMAL COAGULATION PROFILE (3) Elevated transaminase level Code(s): R74.0 - NONSPEC ELEV OF LEVELS OF TRANSAMNS & LACTIC ACID DEHYDRGNSE (4) Petechial rash Code(s): R23.3 - SPONTANEOUS ECCHYMOSES (5) Anemia Code(s): D64.9 - ANEMIA, UNSPECIFIED Qualifiers: Anemia type: unspecified type Qualified Code(s): D64.9 - Anemia, unspecified Visit type - Emergency Visit Emergency Visit: Yes ED Registration Date: 07/01/18 Care time: The patient presented to the Emergency Department on the above date and was hospitalized for further evaluation of their emergent condition. - New Patient This patient is new to me today: Yes Date on this admission: 07/13/18 - Critical Care Critical Care patient: No - Discharge Referral Referred to [facility] Med P.C.: No
--- NOTE | 2018-07-13 13:47 | PN ---
Progress Note (short form) - Note Progress Note: Renal follow up for ELLIOTT Pt seen and examined at the bedside awake and alert eating lunch, being fed by daughter making urine no overnight events Vital Signs Temperature 98.1 F 07/13/18 09:13 Pulse Rate 89 07/13/18 09:13 Respiratory Rate 18 07/13/18 09:13 Blood Pressure 93/54 L 07/13/18 09:13 O2 Sat by Pulse Oximetry (%) 98 07/11/18 09:00 Intake & Output 07/10/18 07/11/18 07/12/18 07/13/18 23:59 23:59 23:59 23:59 Intake Total 480 2290 500 500 Output Total 250 100 100 400 Balance 230 2190 400 100 Weight 86.455 kg 84.964 kg 84.425 kg NAD, confused CTA, no rales soft NT/ND no LE edmea, clubbing or cyanosis no bladder distension CBC, BMP 07/13/18 08:55 07/13/18 08:55 Current Medications Budesonide/Formoterol Fumarate (Symbicort 160/4.5mcg -) 2 puff IH BID [facility] Last Admin: 07/13/18 09:11 Dose: 2 puff Carvedilol (Coreg -) 3.125 mg PO BID [facility] Last Admin: 07/13/18 09:11 Dose: 3.125 mg Cholecalciferol (Vitamin D3 -) 5,000 unit PO DAILY [facility] Last Admin: 07/13/18 09:11 Dose: 5,000 unit Febuxostat (Uloric -) 40 mg PO DAILY [facility] Last Admin: 07/13/18 09:11 Dose: 40 mg Amino Acids (Clinimix -) 1,000 mls @ 42 mls/hr IV Q23H [facility] Last Admin: 07/13/18 09:14 Dose: Not Given Insulin Aspart (Novolog Vial Sliding Scale -) 1 vial SQ ACHS [facility]; Protocol Last Admin: 07/13/18 11:57 Dose: 4 units Olanzapine (Zyprexa -) 2.5 mg PO HS [facility] Last Admin: 07/12/18 22:13 Dose: 2.5 mg Polyethylene Glycol (Miralax (For Daily Use) -) 17 gm PO DAILY PRN PRN Reason: CONSTIPATION Last Admin: 07/11/18 10:26 Dose: 17 grams Sodium Bicarbonate (Sodium Bicarbonate -) 650 mg PO BID [facility]IVE Last Admin: 07/13/18 09:11 Dose: 650 mg 77 year old gentleman with hx of CKD stage 3 (baseline Cr 1.8-2), CAD s/p PCI, CHF with very low LVEF, hyperlipidemia, hypertension, AICD placement, DM, COPD who presented from Dr. Connolly's office with hypotension and found to have increasing confusion and ELLIOTT. #ELLIOTT on CKD due to volume depletion #Hypotension #Altered mental status r/o dementia vs. other cause #DM #Hypertension #CHF #metabolic acidosis with respiratory compensation Renal function still without improvement at this time serologic work up negative no emergent indication for PULMONARY PHYSICIAN continue oral bicarb still suspect that BUN should improve with better hydration or oral intake pt is agreeable to feeding tube heme following regarding low plt counts Mikhail Ling DO
[2018-07-13] MEDS ORDERED: PHYTONADIONE 5 MG TABLET PO ONE (16:13)
[2018-07-13] MEDS ORDERED: INSULIN (NOVOLOG) ASPART 100 UNITS/ML 10ML VIAL ONE (17:33)
--- NOTE | 2018-07-13 17:39 | PN ---
Teaching Attending Note Name of Resident: Elmo Wheeler ATTENDING PHYSICIAN STATEMENT I saw and evaluated the patient. I reviewed the resident's note and discussed the case with the resident. I agree with the resident's findings and plan as documented. SUBJECTIVE: denies any pain, OSB , or any complaints. wants to go home . Improved po intake per RN. No events over night OBJECTIVE: NAD, awake, cooperative, sitting in a chair. CV: RRR, no MRG Lungs: CTAB Ext : no edema or erythema . petichiae on legs A/P: 77 y/o man with h/o HTN, HLP, systolic CHF, COPD, CKD, CAD s/p stenting, [place], ICD , gout, DM, and other medical problems who presented with general weakness. 1- Encephalopathy: dementia, volume depletion, medications, and uremia. mental status cont to improve - zyprexa only at HS. 2- Petechiae and ecchymosis: with elevated PT and PTT. could be multifactorial - mixing study results noted. repeat Fibrinogen noted. - await factor levels - cont to hold aspirin and DVT PX. - did not receive Vit K on Thursday . give po today 3- ELLIOTT on CKD: Cont to be volume depleted. - cont bicarb - family agrees with PEG, but patient po intake improved and INR and plt don't allow placement - awaiting for Plt and INR to allow, will start calorie count. if can be avoided , will not place PEG 4- Transaminitis: possible liver disease. appreciate dr. Camacho help. No need for rifaximin and lactulose as low suspicion for hepatic encephalopathy and risk for volume depletion with poor po intake 5- Mild hypotension:due to volume depletion 6- H/o systolic CHF: hold diuresis in setting of volume depletion. cont coreg, hold for hypotension 7- Euthyroid sick syndrome: repeat as out pt 8- DM: cont SSI 9- thrombocytopenia: check HIT abs HLOC will require rehab at me. Still discharge is pending improvement in PO intake ( calorie count) Vs placement of PEG
--- NOTE | 2018-07-13 19:15 | PN ---
Progress Note (short form) - Note Progress Note: Patient seen and examined Lethargic - fell asleep during interview Laboratory data reviewed Abnormal LFT's Coagulopathy with abnormal PT/PTT Likely thrombocytopathy Thrombocytopenia Mixing studies - no evidence of circulating anticoagulant No evidence of Lupus anticoagulant Unfortunately Factor analysis will take some time for results.
[2018-07-13] MEDS: OLANZapine 2.5 MG TABLET PO SCH (22:34)
[2018-07-14] MEDS: INSULIN SLIDING SCALE (NOVOLOG) 1 VIAL SQ SCH ×3 (07:01→17:24)
--- NOTE | 2018-07-14 07:53 | PN ---
Physical Exam: SUBJECTIVE: Patient seen and examined at bedside. no complaints. denies cp, sob , fever, n/v/d. pt noted by nursing staff to be pulling at IVs and other equipment. Pt cont to take his clothes off and lays in bed naked. In general confused/forgetful, fatigued, lethargic, however more alert today. Family decided PEG OBJECTIVE: Vital Signs Period Temp Pulse Resp BP Sys/Robbins Pulse Ox Last 24 Hr 97.5 F-98.1 F 82-89 18-20 85-115/54-70 97 GENERAL:AOX 1-2, NAD. In general confused/forgetful, fatigued, lethargic, however more alert today. cont to take his clothes off and lays in bed naked. HEAD: NCAT EYES: PERRLA, EOMI EARS, NOSE, THROAT: MMM LUNGS: CTAB HEART: RRR, no murmurs heard, defribilator in LUQ ABDOMEN: Soft, NTND, normoactive bowel sounds, no guarding, no rebound, no masses. large ring like purple ecchymosis in umbilical region along w/ petechia along abdomen (appears to be fading in color but spreading in surface area along abd), chest and legs, improving LOWER EXTREMITIES: 2+ pulses, warm, well-perfused. No calf tenderness. No peripheral edema. mild R foot/ankle swelling and erythema, TTP? NEUROLOGICAL: Cranial nerves II-XII intact. PSYCHIATRIC: Cooperative. SKIN: Warm, dry, normal turgor, no rashes or lesions noted, normal capillary refill. Laboratory Results - last 24 hr 07/11/18 07/13/18 07/13/18 06:00 08:55 08:55 WBC 7.8 RBC 4.36 Hgb 12.7 Hct 41.4 MCV 95.0 MCH 29.1 MCHC 30.7 L RDW 16.7 H Plt Count 82 L D MPV 9.2 Absolute Neuts (auto) 5.8 Neutrophils % 75.0 Lymphocytes % 19.0 Monocytes % 4.4 Eosinophils % 1.5 D Basophils % 0.1 Nucleated RBC % 0 PT with INR INR Factor VII Activity 32 L Sodium 142 Potassium 4.5 Chloride 109 H Carbon Dioxide 21 Anion Gap 12 BUN 111 H* Creatinine 2.8 H Est GFR (CKD-EPI)AfAm 24.29 Est GFR (CKD-EPI)NonAf 20.96 POC Glucometer Random Glucose 93 Calcium 8.6 Phosphorus 5.2 H Magnesium 3.5 H Total Bilirubin 2.9 H AST 60 H ALT 92 H Alkaline Phosphatase 72 Total Protein 6.3 L Albumin 3.2 L 07/13/18 07/13/18 07/13/18 08:55 11:48 17:24 WBC RBC Hgb Hct MCV MCH MCHC RDW Plt Count MPV Absolute Neuts (auto) Neutrophils % Lymphocytes % Monocytes % Eosinophils % Basophils % Nucleated RBC % PT with INR 20.00 H INR 1.69 H Factor VII Activity Sodium Potassium Chloride Carbon Dioxide Anion Gap BUN Creatinine Est GFR (CKD-EPI)AfAm Est GFR (CKD-EPI)NonAf POC Glucometer 236 178 Random Glucose Calcium Phosphorus Magnesium Total Bilirubin AST ALT Alkaline Phosphatase Total Protein Albumin 07/13/18 23:15 WBC RBC Hgb Hct MCV MCH MCHC RDW Plt Count MPV Absolute Neuts (auto) Neutrophils % Lymphocytes % Monocytes % Eosinophils % Basophils % Nucleated RBC % PT with INR INR Factor VII Activity Sodium Potassium Chloride Carbon Dioxide Anion Gap BUN Creatinine Est GFR (CKD-EPI)AfAm Est GFR (CKD-EPI)NonAf POC Glucometer 179 Random Glucose Calcium Phosphorus Magnesium Total Bilirubin AST ALT Alkaline Phosphatase Total Protein Albumin Active Medications Generic Name Dose Route Start Last Admin Trade Name Freq PRN Reason Stop Dose Admin Budesonide/Formoterol Fumarate 2 puff 07/01/18 10:00 07/13/18 22:44 Symbicort 160/4.5mcg - IH 2 puff BID [facility] Administration Carvedilol 3.125 mg 07/09/18 22:15 07/13/18 22:33 Coreg - PO 3.125 mg BID [facility] Administration Cholecalciferol 5,000 unit 07/07/18 16:30 07/13/18 09:11 Vitamin D3 - PO 5,000 unit DAILY [facility] Administration Febuxostat 40 mg 07/01/18 12:00 07/13/18 09:11 Uloric - PO 40 mg DAILY [facility] Administration Amino Acids 1,000 mls @ 42 mls/hr 07/07/18 15:15 07/13/18 09:14 Clinimix - IV Not Given Q23H [facility] Insulin Aspart 1 vial 07/01/18 07:00 07/14/18 07:01 Novolog Vial Sliding Scale - SQ Not Given ACHS [facility] Protocol Olanzapine 2.5 mg 07/09/18 22:00 07/13/18 22:34 Zyprexa - PO 2.5 mg HS [facility] Administration Polyethylene Glycol 17 gm 07/10/18 13:04 07/11/18 10:26 Miralax (For Daily Use) - PO 17 grams DAILY PRN Administration CONSTIPATION Sodium Bicarbonate 650 mg 07/03/18 10:00 07/13/18 22:33 Sodium Bicarbonate - PO 650 mg BID [facility] Administration [id number] CT/ABDOMEN & PELVIS CT W/O CONTR HISTORY PROVIDED: Rule out bleed TECHNIQUE: Sequential axial images were obtained from the domes of the diaphragm through the symphysis pubis. The study is markedly limited without the use of any contrast material. There are bilateral pleural effusions, right greater than left. The heart is enlarged. No acute infiltrates are identified. There is a trace amount of ascites about the liver. The liver, spleen, pancreas, adrenal glands and kidneys demonstrate no gross abnormalities. Small renal cysts are present bilaterally. The gallbladder has been removed. There is no evidence of intra-abdominal or retroperitoneal lymphadenopathy or fluid collections. There is no evidence of pneumoperitoneum, bowel obstruction or intra-abdominal abscess. There is no CT evidence of acute appendicitis There is extensive diverticulosis coli with no evidence of acute diverticulitis. Examination of the pelvis demonstrates no evidence of pelvic masses, fluid collections or lymphadenopathy. The prostate gland is enlarged measuring 6.2 x 5.4 x 5.5 cm. There is no evidence of acute bony pathology. IMPRESSION: 1. Bilateral pleural effusions. 2. Trace ascites. 3. Extensive diverticulosis coli. 4. Prostatic enlargement. 5. No acute pathology within the abdomen or pelvis. Please see above discussion. ASSESSMENT/PLAN: 77 y/o M PMH HTN, HLD, LV dysfunction/CHF, CKD 4, CAD s/p stents, CA s/p defribilator, gout, DM, COPD due to smoking history?, who presented from Dr. Hood office with Weakness, poor PO intake, hypotension and found to have increasing confusion and ELLIOTT. There appears to have been a miscommunication between what exploration engineer recommended and what the daughter gave. It appears as though the daughter continued to give the Lasix even though the patient was not supposed to be doing so. daughter has been concerned for a while about her father having dementia, on last admission pt was referred to Dr Munoz for an outpt dementia eval #? Metabolic encephalopathy vs suspected worsening dementia, poor PO intake. pt noted to be pulling at IVs and refusing blood draws -Consulted NeurologyTammy: suspects likely underlying Alzheimer vs frontotemporal dementia with superimposed metabolic encephalopathy with generalized weakness, poor cardiac status likely contributory as well. per neuro , no focality to suggest new cerebral ischemic event, no evidence of seizures, meningitis, etc -Dr. Connolly consulted -CT head w/o acute changes -MRI is not an option since has a PPM/defibrilator -encourage PO hydration, started on clinimix by nephro given his worsening dementia state and poor po intake -ammonia fluctuating but unlikely to be contributing to AMS, no need for lactulose, GI recs appreciated -cont to hold gabapentin to avoid worsening confusion, neuro recs appreciated -Vit B12, Folic acid elevated -ucx, RPR neg -psych consulted -c/w zyprexa per psych -sawmill hand consult -family has decided for PEG. -IR consulted for PEG, will ideally need INR<1.5 and plt >100 -sawmill hand consult for calorie count #new petechia and abdominal echymosis w/ elevated INR 1.79 (not on AC) and thrombocytopenia - unclear etiology. plt are downtrending and today in the 80s ( baseline ~150-200). H/H remains stable at baseline. no obvious source of bleed. possibly 2/2 liver disease/injury and c/b vit K depletion 2/2 poor po intake/ malabsorbtion. 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 nephro and heme recs appreciated, elevated BUN may be contributing but unclear at this time as levels of 100 may cause platelet dsfx but unclear if this is what is causing his bruising. -heme/onc consult, [place] -corrected retic index is low indicating inadequate marrow response -CT A/P reviewed above, No acute pathology within the abdomen or pelvis -LDH, haptoglobin nl -hold ASA and SQH -P and C ANCA, HERB neg -No evidence of Lupus anticoagulant -Mixing study: PT is elevated and PTT is nl, also Factor VII percentage is low. is this an autoimmune process causing deficiency???, will need to touch base w/ heme -ESR 2, CRP 2.3 -s/p vit K 1 mg sq -5mg PO vit K given yesterday to improve INR for PEG -f/u HIT ab for cont downtrending of plt, ~50% decrease, in setting of recent Heparin use -sawmill hand consult for calorie count #ELLIOTT on CKD stage4 2/2 volume depletion, baseline Cr is 1.8-2 - 2.9...2.8...2.6...3...2.8, poor po intake and not receiving clinimix or IVF due to pulling his IVs -nephro consulted, Sushil -UA, MM immuno w/u neg -FeUrea was 38.5% indicating slight tubular dysfunction -hold ACEi and diuretics for now -encourage PO hydration, started on clinimix by nephro given his worsening dementia state and poor po intake -c/w PO bicarbonte for metabolic acidosis #CHF with Severe LV dysfunction: not likely an acute issue -EKG was essentially unchanged since prior -cardio consult, Evy for optimization of HF meds, pt noted here w/ slightly low BP -carvedilol resumed at bid per cardio -hold ASA in setting of petechia and echymosis #Acute Transaminitis w/ elevated INR 1.79: likely 2/2 hepatic congestion 2/2 CHF w/ severe low EF, however component of ischemic injury may be present in setting of hypotension in the setting of volume depletion. The patient is not on any significant hepatotoxic medications. GI consulted, Dr. Camacho, and don' t think that he has hepatic encephalopathy or cirhosis given the lack of splenomegaly and normal liver size. - LFTs downtrending -hepatitis panel unremarkable -Ultrasound of the RUQ: fatty liver vs hepatocellular disease -will hold lipitor until resolves -No need for rifaximin and lactulose and tx of CHF will benefit the liver and should improve the LFTs, GI recs appreciated -Repeat colonoscopy in 2021 oupt #mild R foot/ankle swelling and erythema, TTP? - doesnt look infx or gout. questionably tender will order b/l foot XR to r/o frx will monitor #Hx of gout with elevated Uric acid - no signs of gout c/w home febuxostat #elevated TSH, and FT4, -as per bsw most likely sick euthyroid. -will follow with Dr. Castaneda as an outpatient, for further w/u #DM: chronic -hold diabetic meds -ISS -BGM ACHS #CAD: chronic -hold ASA in setting of petechia and echymosis #FEN -encourage PO hydration, started on clinimix by nephro given his worsening dementia state and poor po intake -replete prn -diabetic/sodium diet #Prophylaxis -hold SQH tid w/ petechia -scd b/l #Dispo -med surg -pt has bed at [facility], however holding off on dc until medically optimized -family has decided for PEG. will need to optimize INR and plt Visit type - Emergency Visit Emergency Visit: Yes ED Registration Date: 07/01/18 Care time: The patient presented to the Emergency Department on the above date and was hospitalized for further evaluation of their emergent condition. - New Patient This patient is new to me today: Yes Date on this admission: 07/14/18 - Critical Care Critical Care patient: No
[2018-07-14 08:40] LABS: BASO % 0.1 % (0-2.0); EOS % 0.7 % (0-4.5); HEMOGLOBIN 12.9 GM/dL (11.7-16.9); LYMPH % 14.8 % (8-40); MCH 29.3 pg (25.7-33.7); MCHC 31.5 g/dl (32.0-35.9); MEAN PLT VOLUME 9.3 fl (7.5-11.1); MONO % 5.3 % (3.8-10.2); NEUT % 79.1 % (42.8-82.8); PLATELET COUNT 83 K/MM3 (134-434); RBC 4.41 M/mm3 (4.00-5.60); RDW 16.7 % (11.9-15.9); WHITE BLOOD COUNT 8.2 K/mm3 (4.0-10.0)
[2018-07-14 08:54] LABS: INR 1.58 (0.83-1.09); PROTHROMBIN TIME (PATIENT) 18.7 SEC (9.7-13.0)
[2018-07-14 09:09] LABS: ALBUMIN 3.2 g/dl (3.4-5.0); BILIRUBIN,TOTAL 2.5 mg/dL (0.2-1); CALCIUM 8.6 mg/dL (8.5-10.1); CREATININE 2.8 mg/dL (0.55-1.3); MAGNESIUM 3.4 mg/dL (1.8-2.4); PHOSPHOROUS 4.9 mg/dL (2.5-4.9); POTASSIUM 4.7 mmol/L (3.5-5.1); TOT PROT 6.3 g/dl (6.4-8.2)
[2018-07-14] MEDS ORDERED: PT OWN MED DRAWER 7, Y5N ONE (10:02)
[2018-07-14] MEDS: BUDESONIDE/FORMETEROL FUMARATE 160/4.5 mcg INHALER IH SCH ×2 (11:52→22:38)
[2018-07-14] MEDS: SODIUM BICARBONATE 650 MG TABLET PO SCH ×2 (11:53→22:37)
[2018-07-14] MEDS: CARVEDILOL 3.125 MG TABLET (FP) PO SCH ×2 (11:53→22:37)
[2018-07-14] MEDS: AMINO ACIDS 4.25%/D5W 1,000 ML IV SCH (11:54)
[2018-07-14] MEDS: FEBUXOSTAT 40 MG TAB PO SCH (11:54)
[2018-07-14] MEDS: CHOLECALCIFEROL (VIT D3) 1,000 UNIT (25 MCG) TABLET PO SCH (11:54)
--- NOTE | 2018-07-14 12:02 | PN ---
Progress Note, Physician History of Present Illness: The patient is a 77YOM with a PMH of HTN, HLD, CKD, CAD s/p stents, TX s/p defibrillator, gout, COPD, hypothyroidism, and CHF who presents to the ER sent in by Dr. Connolly with generalized weakness, poor appetite, and after becoming hypotensive while in his office. Patient has had two recent admissions for dyspnea on exertion to rule out PE in this ED. Patient has been followed up by a special education teaching assistant. Denies fever, chills, cp, N/V/C/D or urinary symptoms. Allergies: NKDA Social Hx: Former smoker. Denies drug or alcohol use. PCP: Dr. Holden Renal: Dr. Yane Connolly PMH PMH of TX (?x 2), severe systolic LV dsyfunction with ICD placed ?2 yrs ago, HTN , HLD, CAD s/p stents, renal dysfunction, COPD (quit cigarettes 10 yrs ago) unintentional weight loss, per family, and gout who presents to the ER with shortness of breath. He was recently discharged from [facility] after being admitted for ?"small TX and levated troponin." (per pt, he was there for two nights). - Current Medication List Current Medications: Active Medications Budesonide/Formoterol Fumarate (Symbicort 160/4.5mcg -) 2 puff IH BID [facility] Last Admin: 07/14/18 11:52 Dose: 2 puff Carvedilol (Coreg -) 3.125 mg PO BID [facility] Last Admin: 07/14/18 11:53 Dose: 3.125 mg Cholecalciferol (Vitamin D3 -) 5,000 unit PO DAILY [facility] Last Admin: 07/14/18 11:54 Dose: 5,000 unit Febuxostat (Uloric -) 40 mg PO DAILY [facility] Last Admin: 07/14/18 11:54 Dose: 40 mg Amino Acids (Clinimix -) 1,000 mls @ 42 mls/hr IV Q23H [facility] Last Admin: 07/14/18 11:54 Dose: Not Given Insulin Aspart (Novolog Vial Sliding Scale -) 1 vial SQ ACHS [facility]; Protocol Last Admin: 07/14/18 11:58 Dose: Not Given Olanzapine (Zyprexa -) 2.5 mg PO HS [facility] Last Admin: 07/13/18 22:34 Dose: 2.5 mg Polyethylene Glycol (Miralax (For Daily Use) -) 17 gm PO DAILY PRN PRN Reason: CONSTIPATION Last Admin: 07/11/18 10:26 Dose: 17 grams Sodium Bicarbonate (Sodium Bicarbonate -) 650 mg PO BID [facility] Last Admin: 07/14/18 11:53 Dose: 650 mg - Objective Vital Signs: Vital Signs Temperature 97.5 F L 07/14/18 06:45 Pulse Rate 84 07/14/18 06:45 Respiratory Rate 20 07/14/18 06:45 Blood Pressure 115/70 07/14/18 06:45 O2 Sat by Pulse Oximetry (%) 97 07/13/18 09:00 Eyes: Yes: WNL, Conjunctiva Clear, EOM Intact HENT: Yes: WNL, Atraumatic, Normocephalic Neck: Yes: WNL, Supple, Trachea Midline Cardiovascular: Yes: WNL, Regular Rate and Rhythm Respiratory: Yes: WNL, Regular, CTA Bilaterally Gastrointestinal: Yes: WNL, Normal Bowel Sounds Genitourinary: Yes: WNL Musculoskeletal: Yes: WNL Extremities: Yes: WNL Edema: No Integumentary: Yes: WNL Neurological: Yes: WNL, Alert, Oriented ...Motor Strength: WNL Psychiatric: Yes: WNL Labs: CBC, BMP 07/14/18 08:15 07/14/18 08:15 INR, PTT INR 1.58 (0.83-1.09) H 07/14/18 08:15 Fibrinogen 191.0 mg/dL (238-498) L 07/12/18 06:30 Problem List - Problems (1) ELLIOTT (acute kidney injury) Code(s): N17.9 - ACUTE KIDNEY FAILURE, UNSPECIFIED (2) Elevated transaminase level Code(s): R74.0 - NONSPEC ELEV OF LEVELS OF TRANSAMNS & LACTIC ACID DEHYDRGNSE (3) Hypotension Code(s): I95.9 - HYPOTENSION, UNSPECIFIED Qualifiers: Hypotension type: unspecified hypotension type Qualified Code(s): I95.9 - Hypotension, unspecified (4) Weakness Code(s): R53.1 - WEAKNESS (5) Acute on chronic renal insufficiency Code(s): N28.9 - DISORDER OF KIDNEY AND URETER, UNSPECIFIED; N18.9 - CHRONIC KIDNEY DISEASE, UNSPECIFIED (6) Anemia Code(s): D64.9 - ANEMIA, UNSPECIFIED Qualifiers: Anemia type: unspecified type Qualified Code(s): D64.9 - Anemia, unspecified (7) Atypical chest pain Code(s): R07.89 - OTHER CHEST PAIN (8) COPD (chronic obstructive pulmonary disease) Code(s): J44.9 - CHRONIC OBSTRUCTIVE PULMONARY DISEASE, UNSPECIFIED (9) Cardiac arrhythmia Code(s): I49.9 - CARDIAC ARRHYTHMIA, UNSPECIFIED (10) Chest wall pain Code(s): R07.89 - OTHER CHEST PAIN (11) Colonic adenoma Code(s): D12.6 - BENIGN NEOPLASM OF COLON, UNSPECIFIED (12) Coronary arteriosclerosis Code(s): I25.10 - ATHSCL HEART DISEASE OF [place] CORONARY ARTERY W/O ANG PCTRS (13) DVT prophylaxis Code(s): [id number] - (14) Diabetes mellitus type 2 in obese Code(s): E11.9 - TYPE 2 DIABETES MELLITUS WITHOUT COMPLICATIONS; E66.9 - OBESITY , UNSPECIFIED (15) Dilated bile duct Code(s): K83.8 - OTHER SPECIFIED DISEASES OF BILIARY TRACT (16) Diverticulosis large intestine w/o perforation or abscess w/bleeding Code(s): K57.31 - DVRTCLOS OF LG INT W/O PERFORATION OR ABSCESS W BLEEDING (17) Dyspnea Code(s): R06.00 - DYSPNEA, UNSPECIFIED Qualifiers: Dyspnea type: unspecified Qualified Code(s): R06.00 - Dyspnea, unspecified (18) Elevated d-dimer Code(s): R79.89 - OTHER SPECIFIED ABNORMAL FINDINGS OF BLOOD CHEMISTRY (19) Full code status Code(s): Z78.9 - OTHER SPECIFIED HEALTH STATUS (20) Gout Code(s): M10.9 - GOUT, UNSPECIFIED (21) Gout attack Code(s): M10.9 - GOUT, UNSPECIFIED (22) History of heart artery stent Code(s): Z95.5 - PRESENCE OF CORONARY ANGIOPLASTY IMPLANT AND GRAFT (23) Hyperkalemia Code(s): E87.5 - HYPERKALEMIA (24) Hyperlipidemia Code(s): E78.5 - HYPERLIPIDEMIA, UNSPECIFIED (25) Hypertension Code(s): I10 - ESSENTIAL (PRIMARY) HYPERTENSION (26) Hypervolemia Code(s): E87.70 - FLUID OVERLOAD, UNSPECIFIED Qualifiers: Hypervolemia type: unspecified Qualified Code(s): E87.70 - Fluid overload, unspecified (28) ICD (implantable cardioverter-defibrillator) in place Code(s): Z95.810 - PRESENCE OF AUTOMATIC (IMPLANTABLE) CARDIAC DEFIBRILLATOR (29) Ileus Code(s): K56.7 - ILEUS, UNSPECIFIED (30) Insomnia Code(s): G47.00 - INSOMNIA, UNSPECIFIED (31) Jaundice Code(s): R17 - UNSPECIFIED JAUNDICE (32) Knee effusion, left Code(s): M25.462 - EFFUSION, LEFT KNEE (33) Left arm numbness Code(s): R20.0 - ANESTHESIA OF SKIN (34) Left upper quadrant pain Code(s): R10.12 - LEFT UPPER QUADRANT PAIN (35) Myocardial infarct Code(s): I21.9 - ACUTE MYOCARDIAL INFARCTION, UNSPECIFIED (36) Neck muscle strain Code(s): S16.1XXA - STRAIN OF MUSCLE, FASCIA AND TENDON AT NECK LEVEL, INIT (37) Neck pain Code(s): M54.2 - CERVICALGIA (38) Pacemaker complications Code(s): T82.9XXA - UNSP COMP OF CARDIAC AND VASCULAR PROSTH DEV/GRFT, INIT (39) Polyarthritis Code(s): M13.0 - POLYARTHRITIS, UNSPECIFIED (40) Renal dysfunction Code(s): N28.9 - DISORDER OF KIDNEY AND URETER, UNSPECIFIED (41) Renal insufficiency Code(s): N28.9 - DISORDER OF KIDNEY AND URETER, UNSPECIFIED (42) Severe left ventricular systolic dysfunction Code(s): I51.9 - HEART DISEASE, UNSPECIFIED (43) Shortness of breath Code(s): R06.02 - SHORTNESS OF BREATH (44) Systolic CHF Code(s): I50.20 - UNSPECIFIED SYSTOLIC (CONGESTIVE) HEART FAILURE (45) Weight loss, unintentional Code(s): R63.4 - ABNORMAL WEIGHT LOSS Assessment/Plan - Problems (1) Acute on chronic systolic and diastolic heart failure, NYHA class 1 Assessment/Plan: Carvedilol reduced to 3.125 mg daily due to hypotension, ?change in mental status. ACEI, spironolactone held due to renal dysfunction. F/u BUN/Cr, electrolytes, daily wt, Is and Os. 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 (2) Weakness Code(s): R53.1 - WEAKNESS (3) Acute on chronic renal insufficiency Code(s): N28.9 - DISORDER OF KIDNEY AND URETER, UNSPECIFIED; N18.9 - CHRONIC KIDNEY DISEASE, UNSPECIFIED (4) COPD (chronic obstructive pulmonary disease) Code(s): J44.9 - CHRONIC OBSTRUCTIVE PULMONARY DISEASE, UNSPECIFIED (5) Gout Code(s): M10.9 - GOUT, UNSPECIFIED (6) History of heart artery stent Code(s): Z95.5 - PRESENCE OF CORONARY ANGIOPLASTY IMPLANT AND GRAFT (7) Hyperlipidemia Code(s): E78.5 - HYPERLIPIDEMIA, UNSPECIFIED (8) Hypertension Code(s): I10 - ESSENTIAL (PRIMARY) HYPERTENSION (9) ICD (implantable cardioverter-defibrillator) in place Code(s): Z95.810 - PRESENCE OF AUTOMATIC (IMPLANTABLE) CARDIAC DEFIBRILLATOR
--- NOTE | 2018-07-14 14:59 | PN ---
Progress Note, Physician - Current Medication List Current Medications: Active Medications Budesonide/Formoterol Fumarate (Symbicort 160/4.5mcg -) 2 puff IH BID [facility] Last Admin: 07/14/18 11:52 Dose: 2 puff Carvedilol (Coreg -) 3.125 mg PO BID [facility] Last Admin: 07/14/18 11:53 Dose: 3.125 mg Cholecalciferol (Vitamin D3 -) 5,000 unit PO DAILY [facility] Last Admin: 07/14/18 11:54 Dose: 5,000 unit Febuxostat (Uloric -) 40 mg PO DAILY [facility] Last Admin: 07/14/18 11:54 Dose: 40 mg Amino Acids (Clinimix -) 1,000 mls @ 42 mls/hr IV Q23H [facility] Last Admin: 07/14/18 11:54 Dose: Not Given Insulin Aspart (Novolog Vial Sliding Scale -) 1 vial SQ ACHS [facility]; Protocol Last Admin: 07/14/18 11:58 Dose: Not Given Olanzapine (Zyprexa -) 2.5 mg PO HS [facility] Last Admin: 07/13/18 22:34 Dose: 2.5 mg Polyethylene Glycol (Miralax (For Daily Use) -) 17 gm PO DAILY PRN PRN Reason: CONSTIPATION Last Admin: 07/11/18 10:26 Dose: 17 grams Sodium Bicarbonate (Sodium Bicarbonate -) 650 mg PO BID [facility] Last Admin: 07/14/18 11:53 Dose: 650 mg - Objective Vital Signs: Vital Signs Temperature 98.0 F 07/14/18 11:20 Pulse Rate 100 H 07/14/18 11:20 Respiratory Rate 18 07/14/18 11:20 Blood Pressure 119/61 07/14/18 11:20 O2 Sat by Pulse Oximetry (%) 97 07/13/18 09:00 Labs: CBC, BMP 07/14/18 08:15 07/14/18 08:15 INR, PTT INR 1.58 (0.83-1.09) H 07/14/18 08:15 Fibrinogen 191.0 mg/dL (238-498) L 07/12/18 06:30 Problem List - Problems (1) Acute on chronic systolic and diastolic heart failure, NYHA class 1 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 (2) Weakness Code(s): R53.1 - WEAKNESS (3) Acute on chronic renal insufficiency Code(s): N28.9 - DISORDER OF KIDNEY AND URETER, UNSPECIFIED; N18.9 - CHRONIC KIDNEY DISEASE, UNSPECIFIED (4) COPD (chronic obstructive pulmonary disease) Code(s): J44.9 - CHRONIC OBSTRUCTIVE PULMONARY DISEASE, UNSPECIFIED (5) Gout Code(s): M10.9 - GOUT, UNSPECIFIED (6) History of heart artery stent Code(s): Z95.5 - PRESENCE OF CORONARY ANGIOPLASTY IMPLANT AND GRAFT (7) Hyperlipidemia Code(s): E78.5 - HYPERLIPIDEMIA, UNSPECIFIED (8) Hypertension Code(s): I10 - ESSENTIAL (PRIMARY) HYPERTENSION (9) ICD (implantable cardioverter-defibrillator) in place Code(s): Z95.810 - PRESENCE OF AUTOMATIC (IMPLANTABLE) CARDIAC DEFIBRILLATOR
--- NOTE | 2018-07-14 15:00 | PN ---
Progress Note, Physician - Current Medication List Current Medications: Active Medications Budesonide/Formoterol Fumarate (Symbicort 160/4.5mcg -) 2 puff IH BID [facility] Last Admin: 07/14/18 11:52 Dose: 2 puff Carvedilol (Coreg -) 3.125 mg PO BID [facility] Last Admin: 07/14/18 11:53 Dose: 3.125 mg Cholecalciferol (Vitamin D3 -) 5,000 unit PO DAILY [facility] Last Admin: 07/14/18 11:54 Dose: 5,000 unit Febuxostat (Uloric -) 40 mg PO DAILY [facility] Last Admin: 07/14/18 11:54 Dose: 40 mg Amino Acids (Clinimix -) 1,000 mls @ 42 mls/hr IV Q23H [facility] Last Admin: 07/14/18 11:54 Dose: Not Given Insulin Aspart (Novolog Vial Sliding Scale -) 1 vial SQ ACHS [facility]; Protocol Last Admin: 07/14/18 11:58 Dose: Not Given Olanzapine (Zyprexa -) 2.5 mg PO HS [facility] Last Admin: 07/13/18 22:34 Dose: 2.5 mg Polyethylene Glycol (Miralax (For Daily Use) -) 17 gm PO DAILY PRN PRN Reason: CONSTIPATION Last Admin: 07/11/18 10:26 Dose: 17 grams Sodium Bicarbonate (Sodium Bicarbonate -) 650 mg PO BID [facility] Last Admin: 07/14/18 11:53 Dose: 650 mg - Objective Vital Signs: Vital Signs Temperature 98.0 F 07/14/18 11:20 Pulse Rate 100 H 07/14/18 11:20 Respiratory Rate 18 07/14/18 11:20 Blood Pressure 119/61 07/14/18 11:20 O2 Sat by Pulse Oximetry (%) 97 07/13/18 09:00 Labs: CBC, BMP 07/14/18 08:15 07/14/18 08:15 INR, PTT INR 1.58 (0.83-1.09) H 07/14/18 08:15 Fibrinogen 191.0 mg/dL (238-498) L 07/12/18 06:30 Problem List - Problems (1) Acute on chronic systolic and diastolic heart failure, NYHA class 1 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 (2) Weakness Code(s): R53.1 - WEAKNESS (3) Acute on chronic renal insufficiency Code(s): N28.9 - DISORDER OF KIDNEY AND URETER, UNSPECIFIED; N18.9 - CHRONIC KIDNEY DISEASE, UNSPECIFIED (4) COPD (chronic obstructive pulmonary disease) Code(s): J44.9 - CHRONIC OBSTRUCTIVE PULMONARY DISEASE, UNSPECIFIED (5) Gout Code(s): M10.9 - GOUT, UNSPECIFIED (6) History of heart artery stent Code(s): Z95.5 - PRESENCE OF CORONARY ANGIOPLASTY IMPLANT AND GRAFT (7) Hyperlipidemia Code(s): E78.5 - HYPERLIPIDEMIA, UNSPECIFIED (8) Hypertension Code(s): I10 - ESSENTIAL (PRIMARY) HYPERTENSION (9) ICD (implantable cardioverter-defibrillator) in place Code(s): Z95.810 - PRESENCE OF AUTOMATIC (IMPLANTABLE) CARDIAC DEFIBRILLATOR
--- NOTE | 2018-07-14 15:01 | PN ---
Progress Note, Physician Chief Complaint: Pr responds to verbal queries, but some answers seem nonsensical. History of Present Illness: Mr. 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 Connolly with generalized weakness, poor appetite, and after becoming hypotensive while in his office. Patient has had two recent admissions for dyspnea on exertion to rule out PE in this ED. 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 Denies fever, chills, cp, N/V/C/D or urinary symptoms. Allergies: NKDA Social Hx: Former smoker. Denies drug or alcohol use. PCP: Dr. Holden Renal: Dr. Yane Connolly - Current Medication List Current Medications: Active Medications Budesonide/Formoterol Fumarate (Symbicort 160/4.5mcg -) 2 puff IH BID [facility] Last Admin: 07/14/18 11:52 Dose: 2 puff Carvedilol (Coreg -) 3.125 mg PO BID [facility] Last Admin: 07/14/18 11:53 Dose: 3.125 mg Cholecalciferol (Vitamin D3 -) 5,000 unit PO DAILY [facility] Last Admin: 07/14/18 11:54 Dose: 5,000 unit Febuxostat (Uloric -) 40 mg PO DAILY [facility] Last Admin: 07/14/18 11:54 Dose: 40 mg Amino Acids (Clinimix -) 1,000 mls @ 42 mls/hr IV Q23H [facility] Last Admin: 07/14/18 11:54 Dose: Not Given Insulin Aspart (Novolog Vial Sliding Scale -) 1 vial SQ ACHS [facility]; Protocol Last Admin: 07/14/18 11:58 Dose: Not Given Olanzapine (Zyprexa -) 2.5 mg PO HS [facility] Last Admin: 07/13/18 22:34 Dose: 2.5 mg Polyethylene Glycol (Miralax (For Daily Use) -) 17 gm PO DAILY PRN PRN Reason: CONSTIPATION Last Admin: 07/11/18 10:26 Dose: 17 grams Sodium Bicarbonate (Sodium Bicarbonate -) 650 mg PO BID [facility] Last Admin: 07/14/18 11:53 Dose: 650 mg - Objective Vital Signs: Vital Signs Temperature 98.0 F 07/14/18 11:20 Pulse Rate 100 H 07/14/18 11:20 Respiratory Rate 18 07/14/18 11:20 Blood Pressure 119/61 07/14/18 11:20 O2 Sat by Pulse Oximetry (%) 97 07/13/18 09:00 Constitutional: Yes: Mild Distress, Thin Eyes: Yes: WNL HENT: Yes: WNL Neck: Yes: WNL Cardiovascular: Yes: Regular Rate and Rhythm, Murmur (1/4 diastolic murmur, RSB- -apex), S1, S2 (split) Respiratory: Yes: Regular Gastrointestinal: Yes: Soft ...Rectal Exam: Yes: Deferred Genitourinary: No: Anuria Musculoskeletal: Yes: Muscle Weakness Extremities: Yes: Cool Edema: Yes Edema: LLE: Trace, RLE: Trace Peripheral Pulses WNL: No Peripheral Pulses: Left Doralis Pedis: 1+, Right Dorsalis Pedis: 1+ Integumentary: Yes: Venous Stasis Changes Neurological: Yes: Confusion, Weakness Psychiatric: Yes: Other (?dementia) Labs: CBC, BMP 07/14/18 08:15 07/14/18 08:15 INR, PTT INR 1.58 (0.83-1.09) H 07/14/18 08:15 Fibrinogen 191.0 mg/dL (238-498) L 07/12/18 06:30 Problem List - Problems (1) Acute on chronic systolic and diastolic heart failure, NYHA class 1 Assessment/Plan: Carvedilol reduced to 3.125 mg daily due to hypotension, ?change in mental status. ACEI, spironolactone held due to renal dysfunction. F/u BUN/Cr, electrolytes, daily wt, Is and Os. 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 (2) Weakness Code(s): R53.1 - WEAKNESS (3) Acute on chronic renal insufficiency Assessment/Plan: f/u with neprhologist. Code(s): N28.9 - DISORDER OF KIDNEY AND URETER, UNSPECIFIED; N18.9 - CHRONIC KIDNEY DISEASE, UNSPECIFIED (4) COPD (chronic obstructive pulmonary disease) Code(s): J44.9 - CHRONIC OBSTRUCTIVE PULMONARY DISEASE, UNSPECIFIED (5) Gout Code(s): M10.9 - GOUT, UNSPECIFIED (6) History of heart artery stent Assessment/Plan: LDL cholesterol 57. On beta uli. Code(s): Z95.5 - PRESENCE OF CORONARY ANGIOPLASTY IMPLANT AND GRAFT (7) Hyperlipidemia Code(s): E78.5 - HYPERLIPIDEMIA, UNSPECIFIED (8) Hypertension Code(s): I10 - ESSENTIAL (PRIMARY) HYPERTENSION (9) ICD (implantable cardioverter-defibrillator) in place Code(s): Z95.810 - PRESENCE OF AUTOMATIC (IMPLANTABLE) CARDIAC DEFIBRILLATOR
[2018-07-14] MEDS ORDERED: ACETAMINOPHEN 325 MG TABLET (FP) PO PRN (16:18)
--- NOTE | 2018-07-14 16:28 | PN.GI ---
GI Progress Note Subjective: Pt seen/examined, pt sitting in hallway chair, feels better, more alert, asking for juice, denies abdominal pain, n/v. - Objective Vital Signs: Vital Signs Temperature 98.2 F 07/14/18 14:17 Pulse Rate 109 H 07/14/18 14:17 Respiratory Rate 18 07/14/18 14:17 Blood Pressure 93/62 07/14/18 14:17 O2 Sat by Pulse Oximetry (%) 97 07/13/18 09:00 Constitutional: Well Nourished, No Distress, Calm Cardiovascular: Yes: WNL, Regular Rate and Rhythm Respiratory: Yes: WNL, Regular, CTA Bilaterally ...Palpate: Yes: Other (Abd soft, nt, nd) Labs: CBC, BMP 07/14/18 08:15 07/14/18 08:15 INR, PTT INR 1.58 (0.83-1.09) H 07/14/18 08:15 Fibrinogen 191.0 mg/dL (238-498) L 07/12/18 06:30 Problem List - Problems (1) Abnormal liver function tests Assessment/Plan: 77y male h/o DM, CKD, HTN, CAD, CHF s/p AICD, prior cholecystectomy presents with increased weakness and altered mentation with elevated LFTs. Remote etoh use reported. Coagulopathy and thrombocytopenia also noted. LFTs are improving and normal appearing appearing liver on imaging. Etiology likely multifactorial in setting of cardiac dysfunction (marked BNP elevated noted), possible ischemic component in setting of hypotension, vs medications (?febuxostat, though appears to have been taking previously) vs underlying NAFLD vs biliary obstruction though low suspicion. Hepatitis panel negative (HBV immune). -Continue to closely monitor LFT trend -Await fibrosure -Avoid nonessential hepatotoxic medications -Continue cardiac optimization -Hematology workup/recommendations -Unclear how much pt is taking po, would recommend workplace trainer and assessor evaluation and determination of caloric intake prior to proceeding with PEG Code(s): R94.5 - ABNORMAL RESULTS OF LIVER FUNCTION STUDIES
[2018-07-14] MEDS ORDERED: predniSONE 20 MG TABLET (UD) PO ONE (16:44)
--- NOTE | 2018-07-14 16:58 | PN ---
Teaching Attending Note Name of Resident: Elmo Wheeler ATTENDING PHYSICIAN STATEMENT I saw and evaluated the patient. I reviewed the resident's note and discussed the case with the resident. I agree with the resident's findings and plan as documented. SUBJECTIVE: Patient is awake but continues to be confused. c/o having an ankle pain joshua. on palpation . OBJECTIVE: Vital Signs Temperature 98.2 F 07/14/18 14:17 Pulse Rate 109 H 07/14/18 14:17 Respiratory Rate 18 07/14/18 14:17 Blood Pressure 93/62 07/14/18 14:17 O2 Sat by Pulse Oximetry (%) 97 07/13/18 09:00 GENERAL: The patient is awake, but continues to be confused , in no acute distress. HEAD: Normal with no signs of trauma. EYES: PERRL, extraocular movements intact, sclera anicteric, conjunctiva clear. ENT: Ears normal, oropharynx clear without exudates, moist mucous membranes. NECK: Trachea midline, full range of motion, supple. LUNGS: Breath sounds equal, clear to auscultation bilaterally, no wheezes, no crackles, no accessory muscle use. HEART: tachycardic, S1, S2 without murmur, rub or gallop. ABDOMEN: Soft, NT, ND, normoactive bowel sounds, ecchymosis around the umbilical cord is improving. EXTREMITIES: 2+ pulses, warm, well-perfused, 1 plus edema of lower extremity, ankles with tenderness to palpation . NEUROLOGICAL: Cranial nerves II through XII grossly intact. Normal speech, gait not observed. PSYCH: Normal mood, normal affect. SKIN: Warm, dry, normal turgor, no rashes or lesions noted CBCD WBC 8.2 K/mm3 (4.0-10.0) 07/14/18 08:15 RBC 4.41 M/mm3 (4.00-5.60) 07/14/18 08:15 Hgb 12.9 GM/dL (11.7-16.9) 07/14/18 08:15 Hct 41.0 % (35.4-49) 07/14/18 08:15 MCV 93.0 fl (80-96) 07/14/18 08:15 MCHC 31.5 g/dl (32.0-35.9) L 07/14/18 08:15 RDW 16.7 % (11.9-15.9) H 07/14/18 08:15 Plt Count 83 K/MM3 (134-434) L 07/14/18 08:15 MPV 9.3 fl (7.5-11.1) 07/14/18 08:15 CMP Sodium 140 mmol/L (136-145) 07/14/18 08:15 Potassium 4.7 mmol/L (3.5-5.1) 07/14/18 08:15 Chloride 105 mmol/L (98-107) 07/14/18 08:15 Carbon Dioxide 22 mmol/L (21-32) 07/14/18 08:15 Anion Gap 13 MMOL/L (8-16) 07/14/18 08:15 BUN 115 mg/dL (7-18) H* 07/14/18 08:15 Creatinine 2.8 mg/dL (0.55-1.3) H 07/14/18 08:15 Random Glucose 136 mg/dL (74-106) H 07/14/18 08:15 Calcium 8.6 mg/dL (8.5-10.1) 07/14/18 08:15 Total Bilirubin 2.5 mg/dL (0.2-1) H 07/14/18 08:15 AST 63 U/L (15-37) H 07/14/18 08:15 ALT 83 U/L (13-61) H 07/14/18 08:15 Alkaline Phosphatase 76 U/L (45-117) 07/14/18 08:15 Total Protein 6.3 g/dl (6.4-8.2) L 07/14/18 08:15 Albumin 3.2 g/dl (3.4-5.0) L 07/14/18 08:15 CARDIAC ENZYMES Creatine Kinase 160 U/L (26-308) 06/30/18 21:30 Troponin I 0.02 ng/ml (0.00-0.05) 07/01/18 11:25 Current Medications Generic Name Dose Route Start Last Admin Trade Name Freq PRN Reason Stop Dose Admin Acetaminophen 650 mg 07/14/18 16:18 Tylenol - PO Q4H PRN PAIN LEVEL 6-10 Budesonide/Formoterol Fumarate 2 puff 07/01/18 10:00 07/14/18 11:52 Symbicort 160/4.5mcg - IH 2 puff BID [facility] Administration Carvedilol 3.125 mg 07/09/18 22:15 07/14/18 11:53 Coreg - PO 3.125 mg BID [facility] Administration Cholecalciferol 5,000 unit 07/07/18 16:30 07/14/18 11:54 Vitamin D3 - PO 5,000 unit DAILY [facility] Administration Febuxostat 40 mg 07/01/18 12:00 07/14/18 11:54 Uloric - PO 40 mg DAILY [facility] Administration Amino Acids 1,000 mls @ 42 mls/hr 07/07/18 15:15 07/14/18 11:54 Clinimix - IV Not Given Q23H [facility] Insulin Aspart 1 vial 07/01/18 07:00 07/14/18 11:58 Novolog Vial Sliding Scale - SQ Not Given ACHS [facility] Protocol Olanzapine 2.5 mg 07/09/18 22:00 07/13/18 22:34 Zyprexa - PO 2.5 mg HS [facility] Administration Polyethylene Glycol 17 gm 07/10/18 13:04 07/11/18 10:26 Miralax (For Daily Use) - PO 17 grams DAILY PRN Administration CONSTIPATION Prednisone 40 mg 07/15/18 10:00 Deltasone - PO 07/19/18 09:59 DAILY [facility] Sodium Bicarbonate 650 mg 07/03/18 10:00 07/14/18 11:53 Sodium Bicarbonate - PO 650 mg BID [facility] Administration Home Medications Medication Instructions Recorded Aspirin [ASA -] 81 mg PO DAILY 01/02/17 Cholecalciferol (Vitamin D3) 5,000 unit PO WEEKLY 01/02/17 [Vitamin D -] Febuxostat [Uloric] 40 mg PO DAILY 01/02/17 Gabapentin 300 mg PO DAILY 01/02/17 Glimepiride [Amaryl] 2 mg PO DAILY 01/02/17 Lipitor 10 mg PO HS 01/02/17 Carvedilol [Coreg -] 3.125 mg PO BID 06/17/18 Budesonide/Formeterol Fumarate 2 puff IH BID #1 inhaler 06/21/18 [SYMBICORT 160/4.5mcg -] ASSESSMENT AND PLAN: Patient is a 77yo male with PMHx of HTN, HLP, systolic CHF, COPD, CKD, CAD s/p stenting, [place], ICD, gout, DM, presented with general weakness and change of mental status. # acute gout of ankles: will start him on short coarse of steroid. Since cannot give Nsaids due to kidney failure, and narcotics due to his confusion. #Acute encephalopathy: multifactorial; dementia, volume depletion, medications, and uremia. Mental status is improving , will continue to monitor. On zyprexa continue # Petechiae and ecchymosis: with elevated PT and PTT. could be multifactorial, mixing study results noted. repeat Fibrinogen noted. - await factor levels, Mixing studies - no evidence of circulating anticoagulant , No evidence of Lupus anticoagulant Unfortunately Factor analysis will take some time for results. will continue to monitor, cont to hold aspirin and DVT PX. s/p vit K # ELLIOTT on CKD: cont bicarb # Transaminitis: possible liver disease. No need for rifaximin and lactulose as per GI, # Mild hypotension:due to volume depletion # H/o systolic CHF: hold diuresis in setting of volume depletion. cont coreg, hold for hypotension # Euthyroid sick syndrome: repeat as out pt # DM: cont SSI # thrombocytopenia: check HIT abs will require rehab at [facility]. Still discharge is pending improvement in PO intake ( calorie count) Vs placement of PEG
[2018-07-14 17:51] LABS: URIC ACID 6.6 mg/dL (2.6-7.2)
--- NOTE | 2018-07-14 18:18 | PN.GI ---
GI Progress Note - Objective Vital Signs: Vital Signs Temperature 98 F 07/14/18 16:15 Pulse Rate 109 H 07/14/18 16:15 Respiratory Rate 20 07/14/18 16:15 Blood Pressure 80/59 L 07/14/18 16:15 O2 Sat by Pulse Oximetry (%) 97 07/14/18 11:20 Labs: CBC, BMP 07/14/18 08:15 07/14/18 08:15 INR, PTT INR 1.58 (0.83-1.09) H 07/14/18 08:15 Fibrinogen 191.0 mg/dL (238-498) L 07/12/18 06:30 Assessment/Plan could by the nurse to evaluate the pt mentioned LE both feet are swallen and warm but left big toe are cold with purole discoloation , pulse was checked with doppler and positive on pobliteal and Dp and on left big toe artery US LE arterial and venous was ordered to R.O DVTS and any emboli events Dr pearl Dale was informed recommend monitor over night and will evaluate in AM ESr , CRP was ordered HIT titers still pending , can not start hep drip as pt has low plt Steroid course was started by dr John for possible Gout flare case was discussed with Dr gonzales and dr kang
[2018-07-14] MEDS ORDERED: HEPARIN NA (PORCINE) 5,000 UNITS/ML 1ML VIAL IVPUSH PRN ×2 (19:09)
--- NOTE | 2018-07-14 19:11 | PN ---
Progress Note (short form) - Note Progress Note: Patient seen Patient developed acute dusky cool left big toe- Somewhat tender on palpation Some petechieae of RLE Rising BUN --115 Stable platelets -83K Abnormal Coags of PT/PTT Plan: Doppler Begin heparin therapy Monitor coags
--- NOTE | 2018-07-14 19:44 | PN ---
Progress Note (short form) - Note Progress Note: Patient seen and examined Cold dusky left big toe Petechiae right foot Rash fading abdominal wall Platelets stable -82K BUN stable 115 ? embolic event , ? atherosclerotic emboli ? chronic DIC Plan heparin therapy Monitor for HIT.
[2018-07-14] MEDS: OLANZapine 2.5 MG TABLET PO SCH (22:38)
[2018-07-15] MEDS: INSULIN SLIDING SCALE (NOVOLOG) 1 VIAL SQ SCH ×5 (00:31→21:42)
[2018-07-15] MEDS: HEPARIN - 25,000 UNIT in SODIUM CHLORIDE 495 ML IV SCH ×2 (00:31→19:26)
[2018-07-15] MEDS: AMINO ACIDS 4.25%/D5W 1,000 ML IV SCH ×2 (06:27→06:46)
[2018-07-15] MEDS ORDERED: INSULIN (LEVEMIR) 100 UNITS/ML UNITS SQ ONE (06:52)
[2018-07-15] MEDS ORDERED: INSULIN (NOVOLOG) ASPART 100 UNITS/ML 10ML VIAL ONE (06:54)
--- NOTE | 2018-07-15 08:08 | PN ---
Physical Exam: SUBJECTIVE: Patient seen and examined at bedside. yesterday was c/o having an ankle/foot pain and swelling, eval by heme, concern for chronic DIC? started on heparin gtt. denies cp, sob, fever, n/v/d. pt noted by nursing staff to be pulling at IVs and other equipment. Pt cont to take his clothes off and lays in bed naked. In general confused/forgetful, fatigued, lethargic, however more alert today. Family decided PEG OBJECTIVE: Vital Signs Period Temp Pulse Resp BP Sys/Robbins Pulse Ox Last 24 Hr 98 F-98.2 F 100-109 18-20 80-119/59-62 97-97 GENERAL:AOX 1-2, NAD. In general confused/forgetful, fatigued, lethargic, however more alert today. cont to take his clothes off and lays in bed naked. HEAD: NCAT EYES: PERRLA, EOMI EARS, NOSE, THROAT: MMM LUNGS: CTAB HEART: RRR, no murmurs heard, defribilator in LUQ ABDOMEN: Soft, NTND, normoactive bowel sounds, no guarding, no rebound, no masses. large ring like purple ecchymosis in umbilical region along w/ petechia along abdomen (appears to be fading in color but spreading in surface area along abd), chest and legs, improving LOWER EXTREMITIES: 2+ pulses, warm, well-perfused. No calf tenderness. No peripheral edema. b/l foot/ankle swelling and erythema, TTP. L toes are cold dusky blue/purple color, DP pulses are palpable NEUROLOGICAL: Cranial nerves II-XII intact. PSYCHIATRIC: Cooperative. SKIN: Warm, dry, normal turgor, no rashes or lesions noted Laboratory Results - last 24 hr 07/14/18 07/14/18 07/14/18 08:15 08:15 08:15 WBC 8.2 RBC 4.41 Hgb 12.9 Hct 41.0 MCV 93.0 MCH 29.3 MCHC 31.5 L RDW 16.7 H Plt Count 83 L MPV 9.3 Absolute Neuts (auto) 6.5 Neutrophils % 79.1 Lymphocytes % 14.8 D Monocytes % 5.3 Eosinophils % 0.7 Basophils % 0.1 Nucleated RBC % 0 ESR PT with INR 18.70 H INR 1.58 H Sodium 140 Potassium 4.7 Chloride 105 Carbon Dioxide 22 Anion Gap 13 BUN 115 H* Creatinine 2.8 H Est GFR (CKD-EPI)AfAm 24.29 Est GFR (CKD-EPI)NonAf 20.96 POC Glucometer Random Glucose 136 H Uric Acid 6.6 Calcium 8.6 Phosphorus 4.9 Magnesium 3.4 H Total Bilirubin 2.5 H AST 63 H ALT 83 H Alkaline Phosphatase 76 C-Reactive Protein Total Protein 6.3 L Albumin 3.2 L 07/14/18 07/14/18 07/14/18 11:55 17:22 20:45 WBC RBC Hgb Hct MCV MCH MCHC RDW Plt Count MPV Absolute Neuts (auto) Neutrophils % Lymphocytes % Monocytes % Eosinophils % Basophils % Nucleated RBC % ESR 2 PT with INR INR Sodium Potassium Chloride Carbon Dioxide Anion Gap BUN Creatinine Est GFR (CKD-EPI)AfAm Est GFR (CKD-EPI)NonAf POC Glucometer 131 185 Random Glucose Uric Acid Calcium Phosphorus Magnesium Total Bilirubin AST ALT Alkaline Phosphatase C-Reactive Protein Total Protein Albumin 07/14/18 07/15/18 07/15/18 20:45 00:27 05:33 WBC RBC Hgb Hct MCV MCH MCHC RDW Plt Count MPV Absolute Neuts (auto) Neutrophils % Lymphocytes % Monocytes % Eosinophils % Basophils % Nucleated RBC % ESR PT with INR INR Sodium Potassium Chloride Carbon Dioxide Anion Gap BUN Creatinine Est GFR (CKD-EPI)AfAm Est GFR (CKD-EPI)NonAf POC Glucometer 269 236 Random Glucose Uric Acid Calcium Phosphorus Magnesium Total Bilirubin AST ALT Alkaline Phosphatase C-Reactive Protein 5.1 H Total Protein Albumin Active Medications Generic Name Dose Route Start Last Admin Trade Name Freq PRN Reason Stop Dose Admin Acetaminophen 650 mg 07/14/18 16:18 07/14/18 17:24 Tylenol - PO 650 mg Q4H PRN Administration PAIN LEVEL 6-10 Budesonide/Formoterol Fumarate 2 puff 07/01/18 10:00 07/14/18 22:38 Symbicort 160/4.5mcg - IH Not Given BID [facility] Carvedilol 3.125 mg 07/09/18 22:15 07/14/18 22:37 Coreg - PO Not Given BID [facility] Cholecalciferol 5,000 unit 07/07/18 16:30 07/14/18 11:54 Vitamin D3 - PO 5,000 unit DAILY CLIVE Administration Febuxostat 40 mg 07/01/18 12:00 07/14/18 11:54 Uloric - PO 40 mg DAILY CLIVE Administration Heparin Sodium (Porcine) 1,000 unit 07/14/18 19:09 Heparin - IVPUSH PRN PRN Heparin Heparin Sodium (Porcine) 5,000 unit 07/14/18 19:09 Heparin - IVPUSH PRN PRN Heparin Amino Acids 1,000 mls @ 42 mls/hr 07/07/18 15:15 07/15/18 06:46 Clinimix - IV 42 mls/hr Q23H CLIVE Administration Heparin Sodium (Porcine) 25, 500 mls @ 20 mls/hr 07/14/18 19:15 07/15/18 00: 31 000 unit/ Sodium Chloride IV 1,000 unit/hr TITR CLIVE 20 mls/hr Administration Protocol 1,000 UNIT/HR Insulin Aspart 1 vial 07/01/18 07:00 07/15/18 06:29 Novolog Vial Sliding Scale - SQ 4 units ACHS CLIVE Administration Protocol Olanzapine 2.5 mg 07/09/18 22:00 07/14/18 22:38 Zyprexa - PO Not Given HS [facility]IVE Polyethylene Glycol 17 gm 07/10/18 13:04 07/11/18 10:26 Miralax (For Daily Use) - PO 17 grams DAILY PRN Administration CONSTIPATION Prednisone 40 mg 07/15/18 10:00 Deltasone - PO 07/19/18 09:59 DAILY CLIVE Sodium Bicarbonate 650 mg 07/03/18 10:00 07/14/18 22:37 Sodium Bicarbonate - PO Not Given BID [facility] [id number] CT/ABDOMEN & PELVIS CT W/O CONTR HISTORY PROVIDED: Rule out bleed TECHNIQUE: Sequential axial images were obtained from the domes of the diaphragm through the symphysis pubis. The study is markedly limited without the use of any contrast material. There are bilateral pleural effusions, right greater than left. The heart is enlarged. No acute infiltrates are identified. There is a trace amount of ascites about the liver. The liver, spleen, pancreas, adrenal glands and kidneys demonstrate no gross abnormalities. Small renal cysts are present bilaterally. The gallbladder has been removed. There is no evidence of intra-abdominal or retroperitoneal lymphadenopathy or fluid collections. There is no evidence of pneumoperitoneum, bowel obstruction or intra-abdominal abscess. There is no CT evidence of acute appendicitis There is extensive diverticulosis coli with no evidence of acute diverticulitis. Examination of the pelvis demonstrates no evidence of pelvic masses, fluid collections or lymphadenopathy. The prostate gland is enlarged measuring 6.2 x 5.4 x 5.5 cm. There is no evidence of acute bony pathology. IMPRESSION: 1. Bilateral pleural effusions. 2. Trace ascites. 3. Extensive diverticulosis coli. 4. Prostatic enlargement. 5. No acute pathology within the abdomen or pelvis. Please see above discussion. [id number] RAD/ANKLE & FOOT-LEFT* [id number] RAD/ANKLE & FOOT-RIGHT* HISTORY PROVIDED: Pain and swelling AP, oblique and lateral projections of both feet and ankles reveals no evidence of fracture, dislocation or acute bone or joint abnormalities. Mild degenerative changes are present about the small joints of the feet and ankles. There is a well-circumscribed lytic lesion within the left navicular bone. This has a benign appearance and is not significant change since a prior study of 11/29/2015. There is also a small spur along the plantar surface of the left calcaneus. Mild soft tissue swelling is seen about the left lateral malleolus. IMPRESSION: Mild degenerative arthritis with no fracture or acute bone or joint abnormalities. Please see above discussion. Reported By: Lance Pitts MD 07/14/18 1522 [id number] US/DUPLEX VASCUL US-2LEGS [id number] US/DUPLEX ART. LEGS- LIMITED US BILATERAL LOWER EXTREMITY VENOUS ULTRASOUND Clinical information given: evaluate for DVT The exam was performed utilizing compression, grayscale, color flow and doppler sonography. There is no sonographic evidence of deep vein thrombosis. If there is clinical concern for possible isolated calf DVT or if there is a clinical diagnosis of uncomplicated superficial thrombophlebitis, then correlation with close follow up sonography is suggested. IMPRESSION: No DVT is identified involving either leg. Please see above. LEFT LOWER EXTREMITY ARTERIAL DOPPLER ULTRASOUND Clinical information: evaluate for arterial thrombus; cold left big toe with discoloration The exam was performed utilizing grayscale and Doppler sonography. Decreased monophasic flow is seen within the left posterior tibial artery. Exam coverage does not include the anterior tibial or peroneal arteries. Unremarkable triphasic flow is noted within the common femoral, superficial femoral and popliteal arteries. IMPRESSION: Decreased monophasic flow is seen within the left posterior tibial artery. Reported By: Bhavik Sargent MD 07/14/182007 ASSESSMENT/PLAN: 77 y/o M PMH HTN, HLD, LV dysfunction/CHF, CKD 4, CAD s/p stents, TN s/p defribilator, gout, DM, COPD due to smoking history?, who presented from Dr. Hood office with Weakness, poor PO intake, hypotension and found to have increasing confusion and ELLIOTT. There appears to have been a miscommunication between what ice cream maker recommended and what the daughter gave. It appears as though the daughter continued to give the Lasix even though the patient was not supposed to be doing so. daughter has been concerned for a while about her father having dementia, on last admission pt was referred to Dr Munoz for an outpt dementia eval #? Metabolic encephalopathy vs suspected worsening dementia, poor PO intake. pt noted to be pulling at IVs and refusing blood draws -Consulted NeurologyTammy: suspects likely underlying Alzheimer vs frontotemporal dementia with superimposed metabolic encephalopathy with generalized weakness, poor cardiac status likely contributory as well. per neuro , no focality to suggest new cerebral ischemic event, no evidence of seizures, meningitis, etc -Dr. Connolly consulted -CT head w/o acute changes -MRI is not an option since has a PPM/defibrilator -encourage PO hydration, started on clinimix by nephro given his worsening dementia state and poor po intake -ammonia fluctuating but unlikely to be contributing to AMS, no need for lactulose, GI recs appreciated -cont to hold gabapentin to avoid worsening confusion, neuro recs appreciated -Vit B12, Folic acid elevated -ucx, RPR neg -psych consulted -c/w zyprexa per psych -tier lift operator consult -family has decided for PEG. -IR consulted for PEG, will ideally need INR<1.5 and plt >100 -tier lift operator consult for calorie count #new petechia and abdominal echymosis w/ elevated INR 1.79 (not on AC) and thrombocytopenia - unclear etiology. plt have downtrended but remain stable in the 80s (baseline ~150-200). H/H remains stable at baseline. no obvious source of bleed. possibly 2/2 liver disease/injury and c/b vit K depletion 2/2 poor po intake/malabsorbtion. 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 nephro and heme recs appreciated, elevated BUN may be contributing but unclear at this time as levels of 100 may cause platelet dsfx but unclear if this is what is causing his bruising. Also noted w/ low fibrinogen, there may be component of mild chronic DIC? -heme/onc consult, [place] -corrected retic index is low indicating inadequate marrow response -CT A/P reviewed above, No acute pathology within the abdomen or pelvis -LDH, haptoglobin nl -hold ASA and SQH -P and C ANCA, HERB neg -No evidence of Lupus anticoagulant -Mixing study: PT is elevated and PTT is nl, also Factor VII percentage is low. is this an autoimmune process causing deficiency???, will need to touch base w/ heme -ESR 2, CRP 2.3 -s/p vit K 1 mg sq -5mg PO vit K given yesterday to improve INR for PEG -f/u HIT ab for cont downtrending of plt, ~50% decrease, in setting of recent Heparin use -tier lift operator consult for calorie count # b/l foot/ankle swelling and erythema, TTP. L toes are cold dusky blue/purple color, DP pulses are palpable and heard on doppler - doesnt look infx or gout. may represent emboli 2/2 chronic DIC?, as discussed above b/l foot XR to r/o frx reviewed above duplex neg DVT arterial reviewd above, Decreased monophasic flow within left posterior tibial artery. 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 ab, if pos will switch to non heparin AC vascular consult, Manolo torres prednisone as unlikely to be gout mechanical restraints #ELLIOTT on CKD stage4 2/2 volume depletion, baseline Cr is 1.8-2 - 2.9...2.8...2.6...3...2.8...3, poor po intake and was not receiving clinimix or IVF due to pulling his IVs -nephro consulted, Sushil PETE MM immuno w/u neg -FeUrea was 38.5% indicating slight tubular dysfunction -hold ACEi and diuretics for now -encourage PO hydration, started on clinimix by nephro given his worsening dementia state and poor po intake -c/w PO bicarbonte for metabolic acidosis #CHF with Severe LV dysfunction: not likely an acute issue -EKG was essentially unchanged since prior -cardio consult, Evy for optimization of HF meds, pt noted here w/ slightly low BP -carvedilol resumed at bid per cardio -hold ASA in setting of petechia and echymosis #Acute Transaminitis w/ elevated INR 1.79: likely 2/2 hepatic congestion 2/2 CHF w/ severe low EF, however component of ischemic injury may be present in setting of hypotension in the setting of volume depletion. The patient is not on any significant hepatotoxic medications. GI consulted, Dr. Camacho, and don' t think that he has hepatic encephalopathy or cirhosis given the lack of splenomegaly and normal liver size. - LFTs downtrending -hepatitis panel unremarkable -Ultrasound of the RUQ: fatty liver vs hepatocellular disease -restart lipitor at higher dose of 40 given embolic events and decreased vascular flow as mentioned above -No need for rifaximin and lactulose and tx of CHF will benefit the liver and should improve the LFTs, GI recs appreciated -Repeat colonoscopy in 2021 oupt #Hx of gout with elevated Uric acid - no signs of gout c/w home febuxostat #elevated TSH, and FT4, -as per aerial hurricane hunter most likely sick euthyroid. -will follow with Dr. Castaneda as an outpatient, for further w/u #DM: chronic -hold diabetic meds -ISS -BGM ACHS #CAD: chronic -hold ASA in setting of petechia and echymosis #FEN -encourage PO hydration, started on clinimix by nephro given his worsening dementia state and poor po intake -replete prn -diabetic/sodium diet #Prophylaxis -hold SQH tid w/ petechia -scd b/l #Dispo -med surg -pt has bed at [facility], however holding off on dc until medically optimized -family has decided for PEG. will need to optimize INR and plt Visit type - Emergency Visit Emergency Visit: Yes ED Registration Date: 07/01/18 Care time: The patient presented to the Emergency Department on the above date and was hospitalized for further evaluation of their emergent condition. - New Patient This patient is new to me today: Yes Date on this admission: 07/15/18 - Critical Care Critical Care patient: No
[2018-07-15 08:35] LABS: BILIRUBIN,TOTAL 2.2 mg/dL (0.2-1); CALCIUM 8.4 mg/dL (8.5-10.1); MAGNESIUM 3.5 mg/dL (1.8-2.4); PHOSPHOROUS 4.8 mg/dL (2.5-4.9); TOT PROT 6.3 g/dl (6.4-8.2); URIC ACID 6.3 mg/dL (2.6-7.2)
[2018-07-15] MEDS ORDERED: SODIUM POLYSTYRENE SULFONATE 15 GM/60 ML BOTTLE PO ONE (09:32)
[2018-07-15] MEDS ORDERED: predniSONE 20 MG TABLET (UD) PO SCH (10:00)
[2018-07-15 10:03] LABS: HEMATOCRIT 43.7 % (35.4-49); HEMOGLOBIN 13.7 GM/dL (11.7-16.9); LYMPH % 9.7 % (8-40); MCH 29.4 pg (25.7-33.7); MCHC 31.3 g/dl (32.0-35.9); MEAN CELL VOLUME 93.9 fl (80-96); MEAN PLT VOLUME 9.2 fl (7.5-11.1); NEUT % 86.3 % (42.8-82.8); PLATELET COUNT 90 K/MM3 (134-434); RBC 4.66 M/mm3 (4.00-5.60); RDW 16.8 % (11.9-15.9); WHITE BLOOD COUNT 9.5 K/mm3 (4.0-10.0)
[2018-07-15] MEDS: CARVEDILOL 3.125 MG TABLET (FP) PO SCH ×2 (10:11→21:41)
[2018-07-15] MEDS: CHOLECALCIFEROL (VIT D3) 1,000 UNIT (25 MCG) TABLET PO SCH (10:11)
[2018-07-15] MEDS: SODIUM BICARBONATE 650 MG TABLET PO SCH ×2 (10:11→21:41)
[2018-07-15] MEDS: FEBUXOSTAT 40 MG TAB PO SCH (10:11)
[2018-07-15] MEDS: BUDESONIDE/FORMETEROL FUMARATE 160/4.5 mcg INHALER IH SCH ×2 (10:12→21:41)
[2018-07-15 10:16] LABS: INR 1.42 (0.83-1.09); PROTHROMBIN TIME (PATIENT) 16.8 SEC (9.7-13.0)
--- NOTE | 2018-07-15 15:55 | PN ---
Progress Note (short form) - Note Progress Note: Renal follow up for ELLIOTT Pt seen and examined at the bedside awake, alert but confused has hands in restraints as he is getting IV heparin was noted to have discoloration in his feet yesterday, was started on heparin for suspected DIC arterial doppler did not show a conclusive stenosis Vital Signs Temperature 98.6 F 07/15/18 11:00 Pulse Rate 84 07/15/18 11:00 Respiratory Rate 18 07/15/18 11:00 Blood Pressure 105/75 07/15/18 11:00 O2 Sat by Pulse Oximetry (%) 97 07/14/18 21:00 Intake & Output 07/12/18 07/13/18 07/14/18 07/15/18 23:59 23:59 23:59 23:59 Intake Total 500 7100 344 2513 Output Total 100 400 Balance 400 760 658 8998 Weight 84.425 kg 84.028 kg NAD, confused CTA, no rales soft NT/ND no LE edmea, clubbing or cyanosis no bladder distension bluish toes, + faint distal pulses CBC, BMP 07/15/18 09:50 07/15/18 06:40 Current Medications Acetaminophen (Tylenol -) 650 mg PO Q4H PRN PRN Reason: PAIN LEVEL 6-10 Last Admin: 07/14/18 17:24 Dose: 650 mg Atorvastatin Calcium (Lipitor -) 40 mg PO HS [facility] Budesonide/Formoterol Fumarate (Symbicort 160/4.5mcg -) 2 puff IH BID [facility] Last Admin: 07/15/18 10:12 Dose: 2 puff Carvedilol (Coreg -) 3.125 mg PO BID [facility] Last Admin: 07/15/18 10:11 Dose: 3.125 mg Cholecalciferol (Vitamin D3 -) 5,000 unit PO DAILY [facility] Last Admin: 07/15/18 10:11 Dose: 5,000 unit Febuxostat (Uloric -) 40 mg PO DAILY [facility] Last Admin: 07/15/18 10:11 Dose: 40 mg Heparin Sodium (Porcine) (Heparin -) 1,000 unit IVPUSH PRN PRN PRN Reason: Heparin Last Admin: 07/15/18 11:10 Dose: 1,000 unit Heparin Sodium (Porcine) (Heparin -) 5,000 unit IVPUSH PRN PRN PRN Reason: Heparin Heparin Sodium (Porcine) 25, (000 unit/ Sodium Chloride) 500 mls @ 20 mls/hr IV TITR CLIVE; Protocol Last Titration: 07/15/18 11:09 Dose: 1,100 unit/hr, 22 mls/hr Sodium Chloride (Normal Saline -) 1,000 mls @ 83 mls/hr IV ASDIR [facility] Insulin Aspart (Novolog Vial Sliding Scale -) 1 vial SQ ACHS CLIVE; Protocol Last Admin: 07/15/18 12:24 Dose: 4 units Olanzapine (Zyprexa -) 2.5 mg PO HS [facility] Last Admin: 07/14/18 22:38 Dose: Not Given Polyethylene Glycol (Miralax (For Daily Use) -) 17 gm PO DAILY PRN PRN Reason: CONSTIPATION Last Admin: 07/11/18 10:26 Dose: 17 grams Sodium Bicarbonate (Sodium Bicarbonate -) 650 mg PO BID [facility] Last Admin: 07/15/18 10:11 Dose: 650 mg 77 year old gentleman with hx of CKD stage 3 (baseline Cr 1.8-2), CAD s/p PCI, CHF with very low LVEF, hyperlipidemia, hypertension, AICD placement, DM, COPD who presented from Dr. Connolly's office with hypotension and found to have increasing confusion and ELLIOTT. #ELLIOTT on CKD due to volume depletion vs. HRS vs. Cardio-renal syndrome #Hypotension #Altered mental status r/o dementia vs. other cause #DM #Hypertension #CHF #metabolic acidosis with respiratory compensation Renal function essentially unchanged given pt has IV access now, will attempt IV hydration as pt still has signs of volume depletion (High BUN/Cr ratio, hypotension) no emergent indication for CONSULTANT TEACHER but will have to consider dialysis if clinical status does not improve getting heparin gtt for suspected DIC skeletal survery done to r/o lytic lesions given kayexlate this am, would limit kayexalate for K > or equal to 5.5 to prevent further volume depletion Trend renal function and electrolytes prognosis is guarded at this time Mikhail Ling DO
[2018-07-15] MEDS ORDERED: SODIUM CHLORIDE 1,000 ML IV SCH (16:00)
--- NOTE | 2018-07-15 17:11 | PN ---
Progress Note (short form) - Note Progress Note: 77yo M was consulted to Vascular for evaluation of his Lt foot toe ischemia. Pt has history of dementia and is unable to give history. According to nursing , it was first noted yesterday that the toes on his Lt foot had become dusky and cool. Nursing states that toes are a little better today. Last Vital Signs Temp Pulse Resp BP Pulse Ox 98.6 F 84 18 105/75 97 07/15/18 11:00 07/15/18 11:00 07/15/18 11:00 07/15/18 11:00 07/14/18 21:00 CBC, BMP 07/15/18 09:50 07/15/18 06:40 PE: Gen: Alert and confused Resp: breathing comfortably Ext: LLE shows toes are dusky and slightly cool, PT pulse dopplarable, pedal pulse could not be found. +1 edema, no erythema. Problem List - Problems (1) Foot swelling Assessment/Plan: Plan -pt does show a good PT pulse, so less concern for acute ischemia of the toes. -due to pt renal history would be unable to obtain CTA of the legs -pt will require goals of care discussion with family if wish to continue workup Dr. French, will evaluate pt and assess for further workup. Code(s): M79.89 - OTHER SPECIFIED SOFT TISSUE DISORDERS
--- NOTE | 2018-07-15 19:23 | PN ---
Teaching Attending Note Name of Resident: Elmo Wheeler ATTENDING PHYSICIAN STATEMENT I saw and evaluated the patient. I reviewed the resident's note and discussed the case with the resident. I agree with the resident's findings and plan as documented. SUBJECTIVE: Patient is confused , but had breakfast this morning OBJECTIVE: Vital Signs Temperature 98.3 F 07/15/18 17:09 Pulse Rate 92 H 07/15/18 17:09 Respiratory Rate 20 07/15/18 17:09 Blood Pressure 98/75 07/15/18 17:09 O2 Sat by Pulse Oximetry (%) 97 07/14/18 21:00 GENERAL: The patient is awake, but continues to be confused ,in no acute distress. HEAD: Normal with no signs of trauma. EYES: PERRL, extraocular movements intact, sclera anicteric, conjunctiva clear. ENT: Ears normal, oropharynx clear without exudates, moist mucous membranes. NECK: Trachea midline, full range of motion, supple. LUNGS: Breath sounds equal, clear to auscultation bilaterally, no wheezes, no crackles, no accessory muscle use. HEART: Regular rate and rhythm, S1, S2 without murmur, rub or gallop. ABDOMEN: Soft, nontender, nondistended, normoactive bowel sounds, ecchymosis around the umbilical cord is improving. EXTREMITIES: 2+ pulses, cool to touch, bl discoloration of lower extremities . NEUROLOGICAL: Cranial nerves II through XII grossly intact. Normal speech, gait not observed. PSYCH: confused SKIN: Warm, dry, normal turgor, no rashes or lesions noted CBCD WBC 9.5 K/mm3 (4.0-10.0) 07/15/18 09:50 RBC 4.66 M/mm3 (4.00-5.60) 07/15/18 09:50 Hgb 13.7 GM/dL (11.7-16.9) 07/15/18 09:50 Hct 43.7 % (35.4-49) 07/15/18 09:50 MCV 93.9 fl (80-96) 07/15/18 09:50 MCHC 31.3 g/dl (32.0-35.9) L 07/15/18 09:50 RDW 16.8 % (11.9-15.9) H 07/15/18 09:50 Plt Count 90 K/MM3 (134-434) L 07/15/18 09:50 MPV 9.2 fl (7.5-11.1) 07/15/18 09:50 CMP Sodium 136 mmol/L (136-145) 07/15/18 06:40 Potassium 5.0 mmol/L (3.5-5.1) 07/15/18 06:40 Chloride 104 mmol/L (98-107) 07/15/18 06:40 Carbon Dioxide 19 mmol/L (21-32) L 07/15/18 06:40 Anion Gap 14 MMOL/L (8-16) 07/15/18 06:40 BUN 119 mg/dL (7-18) H* 07/15/18 06:40 Creatinine 3.0 mg/dL (0.55-1.3) H 07/15/18 06:40 Random Glucose 240 mg/dL (74-106) H 07/15/18 06:40 Calcium 8.4 mg/dL (8.5-10.1) L 07/15/18 06:40 Total Bilirubin 2.2 mg/dL (0.2-1) H 07/15/18 06:40 AST 56 U/L (15-37) H 07/15/18 06:40 ALT 76 U/L (13-61) H 07/15/18 06:40 Alkaline Phosphatase 79 U/L (45-117) 07/15/18 06:40 Total Protein 6.3 g/dl (6.4-8.2) L 07/15/18 06:40 Albumin 3.0 g/dl (3.4-5.0) L 07/15/18 06:40 CARDIAC ENZYMES Creatine Kinase 160 U/L (26-308) 06/30/18 21:30 Troponin I 0.02 ng/ml (0.00-0.05) 07/01/18 11:25 Current Medications Generic Name Dose Route Start Last Admin Trade Name Freq PRN Reason Stop Dose Admin Acetaminophen 650 mg 07/14/18 16:18 07/14/18 17:24 Tylenol - PO 650 mg Q4H PRN Administration PAIN LEVEL 6-10 Atorvastatin Calcium 40 mg 07/15/18 22:00 Lipitor - PO HS CLIVE Budesonide/Formoterol Fumarate 2 puff 07/01/18 10:00 07/15/18 10:12 Symbicort 160/4.5mcg - IH 2 puff BID CLIVE Administration Carvedilol 3.125 mg 07/09/18 22:15 07/15/18 10:11 Coreg - PO 3.125 mg BID CLIVE Administration Cholecalciferol 5,000 unit 07/07/18 16:30 07/15/18 10:11 Vitamin D3 - PO 5,000 unit DAILY CLIVE Administration Febuxostat 40 mg 07/01/18 12:00 07/15/18 10:11 Uloric - PO 40 mg DAILY CLIVE Administration Heparin Sodium (Porcine) 1,000 unit 07/14/18 19:09 07/15/18 11:10 Heparin - IVPUSH 1,000 unit PRN PRN Administration Heparin Heparin Sodium (Porcine) 5,000 unit 07/14/18 19:09 Heparin - IVPUSH PRN PRN Heparin Heparin Sodium (Porcine) 25, 500 mls @ 20 mls/hr 07/14/18 19:15 07/15/18 11: 09 000 unit/ Sodium Chloride IV 1,100 unit/hr TITR CLIVE 22 mls/hr Titration Protocol 1,000 UNIT/HR Sodium Chloride 1,000 mls @ 83 mls/hr 07/15/18 16:00 07/15/18 16:00 Normal Saline - IV 83 mls/hr ASDIR CLIVE Administration Insulin Aspart 1 vial 07/01/18 07:00 07/15/18 19:03 Novolog Vial Sliding Scale - SQ 6 units ACHS CLIVE Administration Protocol Olanzapine 2.5 mg 07/09/18 22:00 07/14/18 22:38 Zyprexa - PO Not Given HS CLIVE Polyethylene Glycol 17 gm 07/10/18 13:04 07/11/18 10:26 Miralax (For Daily Use) - PO 17 grams DAILY PRN Administration CONSTIPATION Sodium Bicarbonate 650 mg 07/03/18 10:00 07/15/18 10:11 Sodium Bicarbonate - PO 650 mg BID CLIVE Administration Home Medications Medication Instructions Recorded Aspirin [ASA -] 81 mg PO DAILY 01/02/17 Cholecalciferol (Vitamin D3) 5,000 unit PO WEEKLY 01/02/17 [Vitamin D -] Febuxostat [Uloric] 40 mg PO DAILY 01/02/17 Gabapentin 300 mg PO DAILY 01/02/17 Glimepiride [Amaryl] 2 mg PO DAILY 01/02/17 Lipitor 10 mg PO HS 01/02/17 Carvedilol [Coreg -] 3.125 mg PO BID 06/17/18 Budesonide/Formeterol Fumarate 2 puff IH BID #1 inhaler 06/21/18 [SYMBICORT 160/4.5mcg -] ASSESSMENT AND PLAN: Patient is a 77yo male with PMHx of HTN, HLP, systolic CHF, COPD, CKD, CAD s/p stenting, GA, ICD, gout, DM, presented with general weakness and change of mental status. # Acute discoloration of both LEs : On IV heparin now as per possible DIC, will monitor. #Acute encephalopathy: multifactorial; dementia, volume depletion, medications, and uremia. Mental status is improving , will continue to monitor. On zyprexa continue # Petechiae and ecchymosis: with elevated PT and PTT. could be multifactorial, mixing study results noted. repeat Fibrinogen noted. - await factor levels, Mixing studies - no evidence of circulating anticoagulant , No evidence of Lupus anticoagulant Unfortunately Factor analysis will take some time for results. will continue to monitor, cont to hold aspirin and DVT PX. s/p vit K # ELLIOTT on CKD: cont bicarb # Transaminitis: possible liver disease. No need for rifaximin and lactulose as per GI, # Mild hypotension:due to volume depletion # H/o systolic CHF: hold diuresis in setting of volume depletion. cont coreg, hold for hypotension # Euthyroid sick syndrome: repeat as out pt # DM: cont SSI # thrombocytopenia: check HIT abs will require rehab at mo. Still discharge is pending improvement in PO intake ( calorie count) Vs placement of PEG
--- NOTE | 2018-07-15 21:29 | PN ---
Progress Note (short form) - Note Progress Note: Patient lorie nd examined Purplish discoloration of toes bilaterally Mildly confused AFVSS Cor: RSR, No murmurs, No gallops Lungs: Clear to P&A Abd: Soft, Normal bowel sounds, No organomegaly Ext:No significant edema abdominal wall rash --ecchymosis, fading Labs/meds reviewed A/P 77 y/o patient with ELLIOTT/CKD, DM, HTN,HLD, ? baseline dementia, pacemaker, now with purplish discoloration of toes bilaterally Thrombocytopenia ? low grade DIC vs ? congestive hepatopathy purplish discoloration of toes --on heparin drip will follow
[2018-07-15] MEDS: OLANZapine 2.5 MG TABLET PO SCH (21:41)
[2018-07-15] MEDS: ATORVASTATIN CA 40 MG TABLET (FP) PO SCH (21:41)
[2018-07-16 05:13] LABS: ALPHA 2 MACROGLOBULINS,QN 177 mg/dL (110-276); ALT(SGPT)P5P 84 IU/L (0-55); CHOLESTEROL TOTAL 88 mg/dL (100-199); FIBROSIS SCORE 0.84 (0.00-0.21); GGT= 27 IU/L (0-65); GLUCOSE SERUM 98 mg/dL (65-99); HEIGHT 71 in (.); WEIGHT- 185 LBS (.)
[2018-07-16] MEDS: INSULIN SLIDING SCALE (NOVOLOG) 1 VIAL SQ SCH ×4 (06:31→21:39)
[2018-07-16 08:11] LABS: BASO % 0.2 % (0-2.0); HEMATOCRIT 41.3 % (35.4-49); HEMOGLOBIN 12.9 GM/dL (11.7-16.9); LYMPH % 7.9 % (8-40); MCH 29.3 pg (25.7-33.7); MCHC 31.4 g/dl (32.0-35.9); MEAN CELL VOLUME 93.3 fl (80-96); MEAN PLT VOLUME 9.8 fl (7.5-11.1); MONO % 4.1 % (3.8-10.2); NEUT % 87.8 % (42.8-82.8); PLATELET COUNT 82 K/MM3 (134-434); RBC 4.42 M/mm3 (4.00-5.60); RDW 16.8 % (11.9-15.9); WHITE BLOOD COUNT 10.3 K/mm3 (4.0-10.0)
[2018-07-16 08:37] LABS: INR 1.42 (0.83-1.09); PROTHROMBIN TIME (PATIENT) 16.8 SEC (9.7-13.0)
[2018-07-16 09:26] LABS: BILIRUBIN,TOTAL 2.4 mg/dL (0.2-1); CALCIUM 8.2 mg/dL (8.5-10.1); CREATININE 2.8 mg/dL (0.55-1.3); MAGNESIUM 3.5 mg/dL (1.8-2.4); PHOSPHOROUS 4.4 mg/dL (2.5-4.9); POTASSIUM 4.2 mmol/L (3.5-5.1); TOT PROT 6.3 g/dl (6.4-8.2)
[2018-07-16] MEDS ORDERED: PT OWN MED DRAWER 7, Y5N ONE (10:15)
[2018-07-16] MEDS: SODIUM BICARBONATE 650 MG TABLET PO SCH ×2 (10:23→21:38)
[2018-07-16] MEDS: CARVEDILOL 3.125 MG TABLET (FP) PO SCH ×2 (10:23→21:38)
[2018-07-16] MEDS: CHOLECALCIFEROL (VIT D3) 1,000 UNIT (25 MCG) TABLET PO SCH (10:23)
[2018-07-16] MEDS: FEBUXOSTAT 40 MG TAB PO SCH (10:23)
[2018-07-16] MEDS: BUDESONIDE/FORMETEROL FUMARATE 160/4.5 mcg INHALER IH SCH ×2 (10:27→21:38)
[2018-07-16] MEDS ORDERED: INSULIN (NOVOLOG) ASPART 100 UNITS/ML 10ML VIAL ONE (12:02)
[2018-07-16] MEDS ORDERED: FUROSEMIDE 40 MG/4 ML INJECTABLE VIAL IVPUSH ONE (12:19)
--- NOTE | 2018-07-16 12:30 | PN ---
Progress Note, Physician Chief Complaint: sob History of Present Illness: The patient is a 77YOM with a PMH of HTN, HLD, CKD, CAD s/p stents, ID s/p defibrillator, gout, COPD, hypothyroidism, and CHF who presents to the ER sent in by Dr. Connolly with generalized weakness, poor appetite, and after becoming hypotensive while in his office. Patient has had two recent admissions for dyspnea on exertion to rule out PE in this ED. Patient has been followed up by a electrical and radio mechanic. Denies fever, chills, cp, N/V/C/D or urinary symptoms. Allergies: NKDA Social Hx: Former smoker. Denies drug or alcohol use. PCP: Dr. Holden Renal: Dr. Yane Connolly PMH PMH of ID (?x 2), severe systolic LV dsyfunction with ICD placed ?2 yrs ago, HTN , HLD, CAD s/p stents, renal dysfunction, COPD (quit cigarettes 10 yrs ago) unintentional weight loss, per family, and gout who presents to the ER with shortness of breath. He was recently discharged from Health system after being admitted for ?"small ID and levated troponin." (per pt, he was there for two nights). - Current Medication List Current Medications: Active Medications Acetaminophen (Tylenol -) 650 mg PO Q4H PRN PRN Reason: PAIN LEVEL 6-10 Last Admin: 07/14/18 17:24 Dose: 650 mg Atorvastatin Calcium (Lipitor -) 40 mg PO HS CLIVE Last Admin: 07/15/18 21:41 Dose: 40 mg Budesonide/Formoterol Fumarate (Symbicort 160/4.5mcg -) 2 puff IH BID [facility] Last Admin: 07/16/18 10:27 Dose: 2 puff Carvedilol (Coreg -) 3.125 mg PO BID [facility] Last Admin: 07/16/18 10:23 Dose: 3.125 mg Cholecalciferol (Vitamin D3 -) 5,000 unit PO DAILY CLIVE Last Admin: 07/16/18 10:23 Dose: 5,000 unit Febuxostat (Uloric -) 40 mg PO DAILY [facility] Last Admin: 07/16/18 10:23 Dose: 40 mg Heparin Sodium (Porcine) (Heparin -) 1,000 unit IVPUSH PRN PRN PRN Reason: Heparin Last Admin: 07/15/18 11:10 Dose: 1,000 unit Heparin Sodium (Porcine) (Heparin -) 5,000 unit IVPUSH PRN PRN PRN Reason: Heparin Heparin Sodium (Porcine) 25, (000 unit/ Sodium Chloride) 500 mls @ 20 mls/hr IV TITR CLIVE; Protocol Last Admin: 07/15/18 19:26 Dose: Not Given Sodium Chloride (Normal Saline -) 1,000 mls @ 83 mls/hr IV ASDIR CLIVE Last Admin: 07/15/18 16:00 Dose: 83 mls/hr Insulin Aspart (Novolog Vial Sliding Scale -) 1 vial SQ ACHS [facility]; Protocol Last Admin: 07/16/18 12:03 Dose: 2 units Olanzapine (Zyprexa -) 2.5 mg PO HS CLIVE Last Admin: 07/15/18 21:41 Dose: 2.5 mg Polyethylene Glycol (Miralax (For Daily Use) -) 17 gm PO DAILY PRN PRN Reason: CONSTIPATION Last Admin: 07/11/18 10:26 Dose: 17 grams Sodium Bicarbonate (Sodium Bicarbonate -) 650 mg PO BID CLIVE Last Admin: 07/16/18 10:23 Dose: 650 mg - Objective Vital Signs: Vital Signs Temperature 98.8 F 07/16/18 06:00 Pulse Rate 96 H 07/16/18 06:00 Respiratory Rate 20 07/16/18 06:00 Blood Pressure 93/72 07/16/18 06:00 O2 Sat by Pulse Oximetry (%) 97 07/15/18 21:00 Eyes: Yes: WNL, Conjunctiva Clear, EOM Intact HENT: Yes: WNL, Atraumatic, Normocephalic Neck: Yes: WNL, Supple, Trachea Midline Cardiovascular: Yes: WNL, Regular Rate and Rhythm Respiratory: Yes: SOB, Wheezes Gastrointestinal: Yes: WNL, Normal Bowel Sounds Genitourinary: Yes: WNL Musculoskeletal: Yes: WNL Extremities: Yes: WNL Edema: No Integumentary: Yes: WNL Neurological: Yes: WNL, Alert, Oriented ...Motor Strength: WNL Psychiatric: Yes: WNL Labs: CBC, BMP 07/16/18 07:43 07/16/18 07:43 INR, PTT INR 1.42 (0.83-1.09) H 07/16/18 07:43 Fibrinogen 191.0 mg/dL (238-498) L 07/12/18 06:30 Problem List - Problems (1) ELLIOTT (acute kidney injury) Code(s): N17.9 - ACUTE KIDNEY FAILURE, UNSPECIFIED (2) Elevated transaminase level Code(s): R74.0 - NONSPEC ELEV OF LEVELS OF TRANSAMNS & LACTIC ACID DEHYDRGNSE (3) Hypotension Code(s): I95.9 - HYPOTENSION, UNSPECIFIED Qualifiers: Hypotension type: unspecified hypotension type Qualified Code(s): I95.9 - Hypotension, unspecified (4) Weakness Code(s): R53.1 - WEAKNESS (5) Acute on chronic renal insufficiency Code(s): N28.9 - DISORDER OF KIDNEY AND URETER, UNSPECIFIED; N18.9 - CHRONIC KIDNEY DISEASE, UNSPECIFIED (6) Anemia Code(s): D64.9 - ANEMIA, UNSPECIFIED Qualifiers: Anemia type: unspecified type Qualified Code(s): D64.9 - Anemia, unspecified (7) Atypical chest pain Code(s): R07.89 - OTHER CHEST PAIN (8) COPD (chronic obstructive pulmonary disease) Code(s): J44.9 - CHRONIC OBSTRUCTIVE PULMONARY DISEASE, UNSPECIFIED (9) Cardiac arrhythmia Code(s): I49.9 - CARDIAC ARRHYTHMIA, UNSPECIFIED (10) Chest wall pain Code(s): R07.89 - OTHER CHEST PAIN (11) Colonic adenoma Code(s): D12.6 - BENIGN NEOPLASM OF COLON, UNSPECIFIED (12) Coronary arteriosclerosis Code(s): I25.10 - ATHSCL HEART DISEASE OF [place] CORONARY ARTERY W/O ANG PCTRS (13) DVT prophylaxis Code(s): SFG4676 - (14) Diabetes mellitus type 2 in obese Code(s): E11.9 - TYPE 2 DIABETES MELLITUS WITHOUT COMPLICATIONS; E66.9 - OBESITY , UNSPECIFIED (15) Dilated bile duct Code(s): K83.8 - OTHER SPECIFIED DISEASES OF BILIARY TRACT (16) Diverticulosis large intestine w/o perforation or abscess w/bleeding Code(s): K57.31 - DVRTCLOS OF LG INT W/O PERFORATION OR ABSCESS W BLEEDING (17) Dyspnea Code(s): R06.00 - DYSPNEA, UNSPECIFIED Qualifiers: Dyspnea type: unspecified Qualified Code(s): R06.00 - Dyspnea, unspecified (18) Elevated d-dimer Code(s): R79.89 - OTHER SPECIFIED ABNORMAL FINDINGS OF BLOOD CHEMISTRY (19) Full code status Code(s): Z78.9 - OTHER SPECIFIED HEALTH STATUS (20) Gout Code(s): M10.9 - GOUT, UNSPECIFIED (21) Gout attack Code(s): M10.9 - GOUT, UNSPECIFIED (22) History of heart artery stent Code(s): Z95.5 - PRESENCE OF CORONARY ANGIOPLASTY IMPLANT AND GRAFT (23) Hyperkalemia Code(s): E87.5 - HYPERKALEMIA (24) Hyperlipidemia Code(s): E78.5 - HYPERLIPIDEMIA, UNSPECIFIED (25) Hypertension Code(s): I10 - ESSENTIAL (PRIMARY) HYPERTENSION (26) Hypervolemia Code(s): E87.70 - FLUID OVERLOAD, UNSPECIFIED Qualifiers: Hypervolemia type: unspecified Qualified Code(s): E87.70 - Fluid overload, unspecified (28) ICD (implantable cardioverter-defibrillator) in place Code(s): Z95.810 - PRESENCE OF AUTOMATIC (IMPLANTABLE) CARDIAC DEFIBRILLATOR (29) Ileus Code(s): K56.7 - ILEUS, UNSPECIFIED (30) Insomnia Code(s): G47.00 - INSOMNIA, UNSPECIFIED (31) Jaundice Code(s): R17 - UNSPECIFIED JAUNDICE (32) Knee effusion, left Code(s): M25.462 - EFFUSION, LEFT KNEE (33) Left arm numbness Code(s): R20.0 - ANESTHESIA OF SKIN (34) Left upper quadrant pain Code(s): R10.12 - LEFT UPPER QUADRANT PAIN (35) Myocardial infarct Code(s): I21.9 - ACUTE MYOCARDIAL INFARCTION, UNSPECIFIED (36) Neck muscle strain Code(s): S16.1XXA - STRAIN OF MUSCLE, FASCIA AND TENDON AT NECK LEVEL, INIT (37) Neck pain Code(s): M54.2 - CERVICALGIA (38) Pacemaker complications Code(s): T82.9XXA - UNSP COMP OF CARDIAC AND VASCULAR PROSTH DEV/GRFT, INIT (39) Polyarthritis Code(s): M13.0 - POLYARTHRITIS, UNSPECIFIED (40) Renal dysfunction Code(s): N28.9 - DISORDER OF KIDNEY AND URETER, UNSPECIFIED (41) Renal insufficiency Code(s): N28.9 - DISORDER OF KIDNEY AND URETER, UNSPECIFIED (42) Severe left ventricular systolic dysfunction Code(s): I51.9 - HEART DISEASE, UNSPECIFIED (43) Shortness of breath Code(s): R06.02 - SHORTNESS OF BREATH (44) Systolic CHF Code(s): I50.20 - UNSPECIFIED SYSTOLIC (CONGESTIVE) HEART FAILURE (45) Weight loss, unintentional Code(s): R63.4 - ABNORMAL WEIGHT LOSS Assessment/Plan - Problems (1) Acute on chronic systolic and diastolic heart failure, NYHA class 1 Assessment/Plan: Carvedilol reduced to 3.125 mg daily due to hypotension, ?change in mental status. ACEI, spironolactone held due to renal dysfunction. F/u BUN/Cr, electrolytes, daily wt, Is and Os. 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 (2) Weakness Code(s): R53.1 - WEAKNESS (3) Acute on chronic renal insufficiency Code(s): N28.9 - DISORDER OF KIDNEY AND URETER, UNSPECIFIED; N18.9 - CHRONIC KIDNEY DISEASE, UNSPECIFIED (4) COPD (chronic obstructive pulmonary disease) Code(s): J44.9 - CHRONIC OBSTRUCTIVE PULMONARY DISEASE, UNSPECIFIED (5) Gout Code(s): M10.9 - GOUT, UNSPECIFIED (6) History of heart artery stent Code(s): Z95.5 - PRESENCE OF CORONARY ANGIOPLASTY IMPLANT AND GRAFT (7) Hyperlipidemia Code(s): E78.5 - HYPERLIPIDEMIA, UNSPECIFIED (8) Hypertension Code(s): I10 - ESSENTIAL (PRIMARY) HYPERTENSION (9) ICD (implantable cardioverter-defibrillator) in place Code(s): Z95.810 - PRESENCE OF AUTOMATIC (IMPLANTABLE) CARDIAC DEFIBRILLATOR SOB wheezes d/c IVF cxr
--- NOTE | 2018-07-16 13:03 | PN ---
Physical Exam: SUBJECTIVE: Patient seen and examined at bedside. Confused, sluggish in responses, no apparent acute complaints, remains on heparin gtt for concern of DIC. OBJECTIVE: Vital Signs Period Temp Pulse Resp BP Sys/Robbins Pulse Ox Last 24 Hr 95.8 F-98.8 F 91-96 20-22 93-101/72-75 97 GENERAL:AOX 1-2, NAD. In general confused/forgetful, fatigued, lethargic, however more alert today. cont to take his clothes off and lays in bed naked. HEAD: NCAT EYES: PERRLA, EOMI EARS, NOSE, THROAT: MMM LUNGS: CTAB HEART: RRR, no murmurs heard, defribilator in LUQ ABDOMEN: Soft, NTND, normoactive bowel sounds, no guarding, no rebound, no masses. large ring like purple ecchymosis in umbilical region along w/ petechia along abdomen (appears to be fading in color but spreading in surface area along abd), chest and legs, improving LOWER EXTREMITIES: 2+ pulses, warm, well-perfused. No calf tenderness. No peripheral edema. b/l foot/ankle swelling and erythema, TTP. L toes are cold dusky blue/purple color, DP pulses are palpable NEUROLOGICAL: Cranial nerves II-XII intact. PSYCHIATRIC: Cooperative. SKIN: Warm, dry, normal turgor, no rashes or lesions noted Laboratory Results - last 24 hr 07/13/18 07/15/18 07/15/18 08:55 17:29 17:30 WBC RBC Hgb Hct MCV MCH MCHC RDW Plt Count MPV Absolute Neuts (auto) Neutrophils % Lymphocytes % Monocytes % Eosinophils % Basophils % Nucleated RBC % Haptoglobin 120 PT with INR INR PTT (Actin FS) Sodium Potassium Chloride Carbon Dioxide Anion Gap BUN Creatinine Est GFR (CKD-EPI)AfAm Est GFR (CKD-EPI)NonAf Glucose 98 POC Glucometer 256 Random Glucose Calcium Phosphorus Magnesium Total Bilirubin 2.3 H GGT 27 AST 64 H ALT 84 H Alkaline Phosphatase Liver Fibrosis Score 0.84 H Liver Fibrosis Stage Liver Steatosis Score 0.72 H Liver Steatosis Grade Total Protein Albumin Bdgfl-7-Cktkzgvwzzlxf 177 Triglycerides 80 Cholesterol 88 L Apolipoprotein A-1 42 L Patient Height (cm) 71 Patient Weight (kg) 185 CSF IgG Interpretation Stool Occult Blood Negative 07/15/18 07/15/1819 18:00 21:04 01:56 WBC RBC Hgb Hct MCV MCH MCHC RDW Plt Count MPV Absolute Neuts (auto) Neutrophils % Lymphocytes % Monocytes % Eosinophils % Basophils % Nucleated RBC % Haptoglobin PT with INR INR PTT (Actin FS) 138.8 H 116.0 H Sodium Potassium Chloride Carbon Dioxide Anion Gap BUN Creatinine Est GFR (CKD-EPI)AfAm Est GFR (CKD-EPI)NonAf Glucose POC Glucometer 237 Random Glucose Calcium Phosphorus Magnesium Total Bilirubin GGT AST ALT Alkaline Phosphatase Liver Fibrosis Score Liver Fibrosis Stage Liver Steatosis Score Liver Steatosis Grade Total Protein Albumin Jowuw-1-Bkdihlrtprszc Triglycerides Cholesterol Apolipoprotein A-1 Patient Height (cm) Patient Weight (kg) CSF IgG Interpretation Stool Occult Blood 07/16/18 07/16/18 07/16/18 06:18 07:43 07:43 WBC 10.3 H RBC 4.42 Hgb 12.9 Hct 41.3 MCV 93.3 MCH 29.3 MCHC 31.4 L RDW 16.8 H Plt Count 82 L MPV 9.8 Absolute Neuts (auto) 9.0 H Neutrophils % 87.8 H Lymphocytes % 7.9 L Monocytes % 4.1 Eosinophils % 0.0 Basophils % 0.2 D Nucleated RBC % 0 Haptoglobin PT with INR INR PTT (Actin FS) 58.2 H Sodium Potassium Chloride Carbon Dioxide Anion Gap BUN Creatinine Est GFR (CKD-EPI)AfAm Est GFR (CKD-EPI)NonAf Glucose POC Glucometer 167 Random Glucose Calcium Phosphorus Magnesium Total Bilirubin GGT AST ALT Alkaline Phosphatase Liver Fibrosis Score Liver Fibrosis Stage Liver Steatosis Score Liver Steatosis Grade Total Protein Albumin Ealwu-0-Sgjvliyncuasj Triglycerides Cholesterol Apolipoprotein A-1 Patient Height (cm) Patient Weight (kg) CSF IgG Interpretation Stool Occult Blood 07/16/18 07/16/18 07/16/18 07:43 07:43 11:48 WBC RBC Hgb Hct MCV MCH MCHC RDW Plt Count MPV Absolute Neuts (auto) Neutrophils % Lymphocytes % Monocytes % Eosinophils % Basophils % Nucleated RBC % Haptoglobin PT with INR 16.80 H INR 1.42 H PTT (Actin FS) Sodium 140 Potassium 4.2 Chloride 108 H Carbon Dioxide 18 L Anion Gap 13 BUN 109 H* Creatinine 2.8 H Est GFR (CKD-EPI)AfAm 24.29 Est GFR (CKD-EPI)NonAf 20.96 Glucose POC Glucometer 172 Random Glucose 158 H Calcium 8.2 L Phosphorus 4.4 Magnesium 3.5 H Total Bilirubin 2.4 H GGT AST 37 ALT 67 H Alkaline Phosphatase 75 Liver Fibrosis Score Liver Fibrosis Stage Liver Steatosis Score Liver Steatosis Grade Total Protein 6.3 L Albumin 3.0 L Friiz-3-Xwvcznflyjclg Triglycerides Cholesterol Apolipoprotein A-1 Patient Height (cm) Patient Weight (kg) CSF IgG Interpretation Stool Occult Blood Active Medications Generic Name Dose Route Start Last Admin Trade Name Freq PRN Reason Stop Dose Admin Acetaminophen 650 mg 07/14/18 16:18 07/14/18 17:24 Tylenol - PO 650 mg Q4H PRN Administration PAIN LEVEL 6-10 Atorvastatin Calcium 40 mg 07/15/18 22:00 07/15/18 21:41 Lipitor - PO 40 mg HS [facility] Administration Budesonide/Formoterol Fumarate 2 puff 07/01/18 10:00 07/16/18 10:27 Symbicort 160/4.5mcg - IH 2 puff BID [facility] Administration Carvedilol 3.125 mg 07/09/18 22:15 07/16/18 10:23 Coreg - PO 3.125 mg BID [facility] Administration Cholecalciferol 5,000 unit 07/07/18 16:30 07/16/18 10:23 Vitamin D3 - PO 5,000 unit DAILY [facility] Administration Febuxostat 40 mg 07/01/18 12:00 07/16/18 10:23 Uloric - PO 40 mg DAILY [facility] Administration Heparin Sodium (Porcine) 1,000 unit 07/14/18 19:09 07/15/18 11:10 Heparin - IVPUSH 1,000 unit PRN PRN Administration Heparin Heparin Sodium (Porcine) 5,000 unit 07/14/18 19:09 Heparin - IVPUSH PRN PRN Heparin Heparin Sodium (Porcine) 25, 500 mls @ 20 mls/hr 07/14/18 19:15 07/15/18 19: 26 000 unit/ Sodium Chloride IV Not Given TITR [facility] Protocol 1,000 UNIT/HR Insulin Aspart 1 vial 07/01/18 07:00 07/16/18 12:03 Novolog Vial Sliding Scale - SQ 2 units ACHS [facility] Administration Protocol Olanzapine 2.5 mg 07/09/18 22:00 07/15/18 21:41 Zyprexa - PO 2.5 mg HS [facility] Administration Polyethylene Glycol 17 gm 07/10/18 13:04 07/11/18 10:26 Miralax (For Daily Use) - PO 17 grams DAILY PRN Administration CONSTIPATION Sodium Bicarbonate 650 mg 07/03/18 10:00 07/16/18 10:23 Sodium Bicarbonate - PO 650 mg BID [facility] Administration ASSESSMENT/PLAN: 77 y/o M PMH HTN, HLD, LV dysfunction/CHF, CKD 4, CAD s/p stents, DC s/p defribilator, gout, DM, COPD due to smoking history?, who presented from Dr. Hood office with Weakness, poor PO intake, hypotension and found to have increasing confusion and ELLIOTT. There appears to have been a miscommunication between what acetaldehyde converter operator recommended and what the daughter gave. It appears as though the daughter continued to give the Lasix even though the patient was not supposed to be doing so. daughter has been concerned for a while about her father having dementia, on last admission pt was referred to Dr Munoz for an outpt dementia eval #? Metabolic encephalopathy vs suspected worsening dementia, poor PO intake. pt noted to be pulling at IVs and refusing blood draws -Consulted NeurologyTammy: suspects likely underlying Alzheimer vs frontotemporal dementia with superimposed metabolic encephalopathy with generalized weakness, poor cardiac status likely contributory as well. per neuro , no focality to suggest new cerebral ischemic event, no evidence of seizures, meningitis, etc -Dr. Connolly consulted -CT head w/o acute changes -MRI is not an option since has a PPM/defibrilator -encourage PO hydration, started on clinimix by nephro given his worsening dementia state and poor po intake -ammonia fluctuating but unlikely to be contributing to AMS, no need for lactulose, GI recs appreciated -cont to hold gabapentin to avoid worsening confusion, neuro recs appreciated -Vit B12, Folic acid elevated -ucx, RPR neg -psych consulted -c/w zyprexa per psych -review specialist consult -family has decided for PEG. -IR consulted for PEG, will ideally need INR<1.5 and plt >100 -review specialist consult for calorie count #new petechiae and abdominal echymosis w/ elevated INR 1.79 (not on AC) and thrombocytopenia - unclear etiology. plt have downtrended but remain stable in the 80s (baseline ~150-200). H/H remains stable at baseline. no obvious source of bleed. possibly 2/2 liver disease/injury and c/b vit K depletion 2/2 poor po intake/malabsorbtion. 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 nephro and heme recs appreciated, elevated BUN may be contributing but unclear at this time as levels of 100 may cause platelet dsfx but unclear if this is what is causing his bruising. Also noted w/ low fibrinogen, there may be component of mild chronic DIC? -heme/onc consult, [place] -corrected retic index is low indicating inadequate marrow response -CT A/P reviewed above, No acute pathology within the abdomen or pelvis -LDH, haptoglobin nl -hold ASA and SQH -P and C ANCA, HERB neg -No evidence of Lupus anticoagulant -Mixing study: PT is elevated and PTT is nl, also Factor VII percentage is low. is this an autoimmune process causing deficiency???, will need to touch base w/ heme -ESR 2, CRP 2.3 -s/p vit K 1 mg sq -5mg PO vit K given yesterday to improve INR for PEG -f/u HIT ab for cont downtrending of plt, ~50% decrease, in setting of recent Heparin use -review specialist consult for calorie count # b/l foot/ankle swelling and erythema, TTP. L toes are cold dusky blue/purple color, DP pulses are palpable and heard on doppler - doesnt look infx or gout. may represent emboli 2/2 chronic DIC?, as discussed above b/l foot XR to r/o frx reviewed above duplex neg DVT arterial reviewd above, Decreased monophasic flow within left posterior tibial artery. 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 ab, if pos will switch to non heparin AC vascular consult, Manolo torres prednisone as unlikely to be gout mechanical restraints #ELLIOTT on CKD stage4 2/2 volume depletion, baseline Cr is 1.8-2 - 2.9...2.8...2.6...3...2.8...3, poor po intake and was not receiving clinimix or IVF due to pulling his IVs -nephro consulted, Sushil PETE MM immuno w/u neg -FeUrea was 38.5% indicating slight tubular dysfunction -hold ACEi and diuretics for now -encourage PO hydration, started on clinimix by nephro given his worsening dementia state and poor po intake -c/w PO bicarbonate for metabolic acidosis #CHF with Severe LV dysfunction: not likely an acute issue -EKG was essentially unchanged since prior -cardio consult, Evy for optimization of HF meds, pt noted here w/ slightly low BP -carvedilol resumed at bid per cardio -hold ASA in setting of petechia and echymosis #Acute Transaminitis w/ elevated INR 1.79: likely 2/2 hepatic congestion 2/2 CHF w/ severe low EF, however component of ischemic injury may be present in setting of hypotension in the setting of volume depletion. The patient is not on any significant hepatotoxic medications. GI consulted, Dr. Camacho, and don' t think that he has hepatic encephalopathy or cirhosis given the lack of splenomegaly and normal liver size. - LFTs downtrending -hepatitis panel unremarkable -Ultrasound of the RUQ: fatty liver vs hepatocellular disease -restart lipitor at higher dose of 40 given embolic events and decreased vascular flow as mentioned above -No need for rifaximin and lactulose and tx of CHF will benefit the liver and should improve the LFTs, GI recs appreciated -Repeat colonoscopy in 2021 oupt #Hx of gout with elevated Uric acid - no signs of gout c/w home febuxostat #elevated TSH, and FT4, -as per banking manager most likely sick euthyroid. -will follow with Dr. Castaneda as an outpatient, for further w/u #DM: chronic -hold diabetic meds -ISS -BGM ACHS #CAD: chronic -hold ASA in setting of petechia and echymosis #FEN -encourage PO hydration, started on clinimix by nephro given his worsening dementia state and poor po intake -replete prn -diabetic/sodium diet #Prophylaxis -hold SQH tid w/ petechia -scd b/l #Dispo -med surg -pt has bed at [facility], however holding off on dc until medically optimized -family has decided for PEG. will need to optimize INR and plt Visit type - Emergency Visit Emergency Visit: No - New Patient This patient is new to me today: Yes Date on this admission: 07/16/18 - Critical Care Critical Care patient: No
--- NOTE | 2018-07-16 15:24 | PN ---
Progress Note (short form) - Note Progress Note: Renal follow up for ELLIOTT Pt seen and examined at the bedside awake and alert dozier inserted this am for monitoring of urine output noted to have sob this am, IVF held and given Lasix 20mg IV on Heparin gtt Vital Signs Temperature 98.8 F 07/16/18 06:00 Pulse Rate 96 H 07/16/18 06:00 Respiratory Rate 20 07/16/18 06:00 Blood Pressure 93/72 07/16/18 06:00 O2 Sat by Pulse Oximetry (%) 97 07/15/18 21:00 Intake & Output 07/13/18 07/14/18 07/15/18 07/16/18 23:59 23:59 23:59 23:59 Intake Total 4598 783 6420 677 Output Total 400 Balance 311 711 3379 677 Weight 84.425 kg 84.028 kg 89.386 kg NAD, confused CTA, no rales soft NT/ND no LE edmea, clubbing or cyanosis no bladder distension CBC, BMP 07/16/18 07:43 07/16/18 07:43 Current Medications Acetaminophen (Tylenol -) 650 mg PO Q4H PRN PRN Reason: PAIN LEVEL 6-10 Last Admin: 07/14/18 17:24 Dose: 650 mg Atorvastatin Calcium (Lipitor -) 40 mg PO HS [facility] Last Admin: 07/15/18 21:41 Dose: 40 mg Budesonide/Formoterol Fumarate (Symbicort 160/4.5mcg -) 2 puff IH BID [facility] Last Admin: 07/16/18 10:27 Dose: 2 puff Carvedilol (Coreg -) 3.125 mg PO BID [facility] Last Admin: 07/16/18 10:23 Dose: 3.125 mg Cholecalciferol (Vitamin D3 -) 5,000 unit PO DAILY [facility] Last Admin: 07/16/18 10:23 Dose: 5,000 unit Febuxostat (Uloric -) 40 mg PO DAILY [facility] Last Admin: 07/16/18 10:23 Dose: 40 mg Heparin Sodium (Porcine) (Heparin -) 1,000 unit IVPUSH PRN PRN PRN Reason: Heparin Last Admin: 07/15/18 11:10 Dose: 1,000 unit Heparin Sodium (Porcine) (Heparin -) 5,000 unit IVPUSH PRN PRN PRN Reason: Heparin Heparin Sodium (Porcine) 25, (000 unit/ Sodium Chloride) 500 mls @ 20 mls/hr IV TITR [facility]; Protocol Last Admin: 07/15/18 19:26 Dose: Not Given Insulin Aspart (Novolog Vial Sliding Scale -) 1 vial SQ ACHS [facility]; Protocol Last Admin: 07/16/18 12:03 Dose: 2 units Olanzapine (Zyprexa -) 2.5 mg PO HS [facility] Last Admin: 07/15/18 21:41 Dose: 2.5 mg Polyethylene Glycol (Miralax (For Daily Use) -) 17 gm PO DAILY PRN PRN Reason: CONSTIPATION Last Admin: 07/11/18 10:26 Dose: 17 grams Sodium Bicarbonate (Sodium Bicarbonate -) 650 mg PO BID [facility] Last Admin: 07/16/18 10:23 Dose: 650 mg 77 year old gentleman with hx of CKD stage 3 (baseline Cr 1.8-2), CAD s/p PCI, CHF with very low LVEF, hyperlipidemia, hypertension, AICD placement, DM, COPD who presented from Dr. Connolly's office with hypotension and found to have increasing confusion and ELLIOTT. #ELLIOTT on CKD due to volume depletion vs. HRS vs. Cardio-renal syndrome #Hypotension #Altered mental status r/o dementia vs. other cause #DM #Hypertension #CHF #metabolic acidosis with respiratory compensation BUN/Cr slightly improved with IVF, however fluids held this am due to sob CXR done, official read pending, if no overt overload can consider contining IVF at reduced rate no emergent indication for [employer] but will have to consider dialysis if clinical status does not improve getting heparin gtt for suspected DIC skeletal survey showed no lytic lesions given kayexlate this am, would limit kayexalate for K > or equal to 5.5 to prevent further volume depletion Trend renal function and electrolytes prognosis is guarded at this time Mikhail Ling DO
--- NOTE | 2018-07-16 18:15 | PN ---
Teaching Attending Note Name of Resident: Basim Murillo ATTENDING PHYSICIAN STATEMENT I saw and evaluated the patient. I reviewed the resident's note and discussed the case with the resident. I agree with the resident's findings and plan as documented. SUBJECTIVE: Patient is more awake today , answers to questions but mildly lethargic, ate 85 % of all his food. OBJECTIVE: Vital Signs Temperature 97.4 F L 07/16/18 16:43 Pulse Rate 101 H 07/16/18 16:43 Respiratory Rate 18 07/16/18 16:43 Blood Pressure 104/61 07/16/18 16:43 O2 Sat by Pulse Oximetry (%) 97 07/16/18 09:00 GENERAL: The patient is awake, but continues to be confused , in no acute distress. HEAD: Normal with no signs of trauma. EYES: PERRL, extraocular movements intact, sclera anicteric, conjunctiva clear. ENT: Ears normal, oropharynx clear without exudates, moist mucous membranes. NECK: Trachea midline, full range of motion, supple. LUNGS: Breath sounds equal, clear to auscultation bilaterally, no wheezes, no crackles, no accessory muscle use. HEART: Regular rate and rhythm, S1, S2 without murmur, rub or gallop. ABDOMEN: Soft, nontender, nondistended, normoactive bowel sounds, ecchymosis around the umbilical cord is improving. EXTREMITIES: 2+ pulses, cool to touch, L>R, edema of LLE , with purple discoloration the 1st 3 toes. NEUROLOGICAL: Cranial nerves II through XII grossly intact. Normal speech, gait not observed. PSYCH: better today, answers to questions SKIN: Warm, dry, normal turgor, no rashes or lesions noted CBCD WBC 10.3 K/mm3 (4.0-10.0) H 07/16/18 07:43 RBC 4.42 M/mm3 (4.00-5.60) 07/16/18 07:43 Hgb 12.9 GM/dL (11.7-16.9) 07/16/18 07:43 Hct 41.3 % (35.4-49) 07/16/18 07:43 MCV 93.3 fl (80-96) 07/16/18 07:43 MCHC 31.4 g/dl (32.0-35.9) L 07/16/18 07:43 RDW 16.8 % (11.9-15.9) H 07/16/18 07:43 Plt Count 82 K/MM3 (134-434) L 07/16/18 07:43 MPV 9.8 fl (7.5-11.1) 07/16/18 07:43 CMP Sodium 140 mmol/L (136-145) 07/16/18 07:43 Potassium 4.2 mmol/L (3.5-5.1) 07/16/18 07:43 Chloride 108 mmol/L (98-107) H 07/16/18 07:43 Carbon Dioxide 18 mmol/L (21-32) L 07/16/18 07:43 Anion Gap 13 MMOL/L (8-16) 07/16/18 07:43 BUN 109 mg/dL (7-18) H* 07/16/18 07:43 Creatinine 2.8 mg/dL (0.55-1.3) H 07/16/18 07:43 Glucose 98 mg/dL (65-99) 07/13/18 08:55 Random Glucose 158 mg/dL (74-106) H 07/16/18 07:43 Calcium 8.2 mg/dL (8.5-10.1) L 07/16/18 07:43 Total Bilirubin 2.4 mg/dL (0.2-1) H 07/16/18 07:43 AST 37 U/L (15-37) 07/16/18 07:43 ALT 67 U/L (13-61) H 07/16/18 07:43 Alkaline Phosphatase 75 U/L (45-117) 07/16/18 07:43 Total Protein 6.3 g/dl (6.4-8.2) L 07/16/18 07:43 Albumin 3.0 g/dl (3.4-5.0) L 07/16/18 07:43 CARDIAC ENZYMES Creatine Kinase 160 U/L (26-308) 06/30/18 21:30 Troponin I 0.02 ng/ml (0.00-0.05) 07/01/18 11:25 Current Medications Generic Name Dose Route Start Last Admin Trade Name Freq PRN Reason Stop Dose Admin Acetaminophen 650 mg 07/14/18 16:18 07/14/18 17:24 Tylenol - PO 650 mg Q4H PRN Administration PAIN LEVEL 6-10 Atorvastatin Calcium 40 mg 07/15/18 22:00 07/15/18 21:41 Lipitor - PO 40 mg HS CLIVE Administration Budesonide/Formoterol Fumarate 2 puff 07/01/18 10:00 07/16/18 10:27 Symbicort 160/4.5mcg - IH 2 puff BID CLIVE Administration Carvedilol 3.125 mg 07/09/18 22:15 07/16/18 10:23 Coreg - PO 3.125 mg BID CLIVE Administration Cholecalciferol 5,000 unit 07/07/18 16:30 07/16/18 10:23 Vitamin D3 - PO 5,000 unit DAILY CLIVE Administration Febuxostat 40 mg 07/01/18 12:00 07/16/18 10:23 Uloric - PO 40 mg DAILY CLIVE Administration Insulin Aspart 1 vial 07/01/18 07:00 07/16/18 17:48 Novolog Vial Sliding Scale - SQ 2 units ACHS CLIVE Administration Protocol Olanzapine 2.5 mg 07/09/18 22:00 07/15/18 21:41 Zyprexa - PO 2.5 mg HS CLIVE Administration Polyethylene Glycol 17 gm 07/10/18 13:04 07/11/18 10:26 Miralax (For Daily Use) - PO 17 grams DAILY PRN Administration CONSTIPATION Sodium Bicarbonate 650 mg 07/03/18 10:00 07/16/18 10:23 Sodium Bicarbonate - PO 650 mg BID CLIVE Administration Home Medications Medication Instructions Recorded Aspirin [ASA -] 81 mg PO DAILY 01/02/17 Cholecalciferol (Vitamin D3) 5,000 unit PO WEEKLY 01/02/17 [Vitamin D -] Febuxostat [Uloric] 40 mg PO DAILY 01/02/17 Gabapentin 300 mg PO DAILY 01/02/17 Glimepiride [Amaryl] 2 mg PO DAILY 01/02/17 Lipitor 10 mg PO HS 01/02/17 Carvedilol [Coreg -] 3.125 mg PO BID 06/17/18 Budesonide/Formeterol Fumarate 2 puff IH BID #1 inhaler 06/21/18 [SYMBICORT 160/4.5mcg -] Laboratory Tests 06/16/18 06/16/18 06/16/18 16:31 18:00 19:42 Plt Count INR BUN Creatinine 2.7 H Random Glucose Uric Acid Phosphorus Magnesium Total Bilirubin 1.4 H AST ALT Troponin I 0.03 B-Natriuretic Peptide 70700.4 H TSH 4.14 H Free T4 1.27 H Total T3 Pending CSF IgG Interpretation Stool Occult Blood Total Protein (ADRIENNE) Albumin (ADRIENNE) Albumin/Globulin (ADRIENNE) Ykemr-2-Uzfzgkrmc [place] Gzdli-2-Bkkhfkzap [place] Gamma Globulins (ADRIENNE) [place] M-[place] IEP IgG IEP IgA IEP IgM HERB Screen c-ANCA Proteinase 3 (PR3) p-ANCA Atypical p-ANCA Myeloperoxidase Ab Heparin-Ind Plt Ab Scrn RPR Titer Hepatitis A IgM Ab Hep Bs Antigen Hep Bs Antibody, Quant Hep B Core IgM Ab Hepatitis C Antibody 06/17/18 06/30/18 06/30/18 05:30 21:30 21:30 Plt Count INR 1.64 H BUN Creatinine 2.5 H Random Glucose Uric Acid Phosphorus Magnesium Total Bilirubin 1.6 H 1.7 H AST 152 H ALT 292 H Troponin I 0.04 B-Natriuretic Peptide TSH Free T4 Total T3 CSF IgG Interpretation Stool Occult Blood Total Protein (ADRIENNE) Albumin (ADRI[place]NE) Albumin/Globulin (ADRI[place]NE) Ovbzc-9-Mwoxqgpai [place] Yczkr-1-Forqcgfro [place] Gamma Globulins ([place]NE) [place] M-[place] IEP IgG IEP IgA IEP IgM HERB Screen c-ANCA Proteinase 3 (PR3) p-ANCA Atypical p-ANCA Myeloperoxidase Ab Heparin-Ind Plt Ab Scrn RPR Titer Hepatitis A IgM Ab Hep Bs Antigen Hep Bs Antibody, Quant Hep B Core IgM Ab Hepatitis C Antibody 06/30/18 07/01/18 07/01/18 21:30 07:35 07:35 Plt Count INR BUN 88 H Creatinine 2.6 H Random Glucose 122 H Uric Acid 13.1 H* Phosphorus 5.5 H Magnesium 2.8 H Total Bilirubin 2.2 H AST 134 H ALT 272 H Troponin I B-Natriuretic Peptide 42845.4 H TSH 5.07 H D Free T4 Total T3 CSF IgG Interpretation Stool Occult Blood Total Protein (ADRIENNE) Albumin (ADRIENNE) Albumin/Globulin (ADRIENNE) Yfnqe-9-Xbdbjcxwa [place] Cwwkn-4-Ryknixrer [place] Gamma Globulins (ADRIENNE) [place] M-[place] IEP IgG IEP IgA IEP IgM HERB Screen c-ANCA Proteinase 3 (PR3) p-ANCA Atypical p-ANCA Myeloperoxidase Ab Heparin-Ind Plt Ab Scrn RPR Titer Hepatitis A IgM Ab Negative Hep Bs Antigen Negative Hep Bs Antibody, Quant Hep B Core IgM Ab Negative Hepatitis C Antibody 0.1 07/01/18 07/03/18 07/07/18 14:30 08:50 06:30 Plt Count INR BUN Creatinine Random Glucose Uric Acid Phosphorus Magnesium Total Bilirubin AST ALT 173 H Troponin I B-Natriuretic Peptide TSH Free T4 Total T3 CSF IgG Interpretation Stool Occult Blood Total Protein (ADRIENNE) Albumin (ADRIENNE) Albumin/Globulin (ADRIENNE) Kmaks-4-Mcnnlccmz [place] Tpxbb-1-Jchikdnzg [place] Gamma Globulins (ADRI[place]NE) [place] M[employer] IEP IgG IEP IgA IEP IgM HERB Screen Negative c-ANCA <1:20 Proteinase 3 (PR3) <3.5 p-ANCA <1:20 Atypical p-ANCA <1:20 Myeloperoxidase Ab <9.0 Heparin-Ind Plt Ab Scrn RPR Titer Nonreactive Hepatitis A IgM Ab Hep Bs Antigen Hep Bs Antibody, Quant Hep B Core IgM Ab Hepatitis C Antibody 07/08/18 07/08/18 07/09/18 07:54 09:30 10:05 Plt Count 147 INR BUN Creatinine Random Glucose Uric Acid Phosphorus Magnesium Total Bilirubin AST ALT Troponin I B-Natriuretic Peptide TSH Free T4 Total T3 CSF IgG Interpretation Stool Occult Blood Total Protein (ADRIENNE) 6.4 Albumin (ADRIENNE) 3.4 Albumin/Globulin (ADRIENNE) 1.2 Kgrrc-0-Cmafcroxj ADRI[place]NE 0.2 Lpgqq-7-Obzoxzthz ADRI[place]NE 0.6 Gamma Globulins (ADRIENNE) 1.3 ADRI[place]NE M-[employer] Not observed IEP IgG 1262 IEP IgA 248 IEP IgM 119 HERB Screen c-ANCA Proteinase 3 (PR3) p-ANCA Atypical p-ANCA Myeloperoxidase Ab Heparin-Ind Plt Ab Scrn RPR Titer Hepatitis A IgM Ab Hep Bs Antigen Hep Bs Antibody, Quant 522.0 Hep B Core IgM Ab Hepatitis C Antibody 07/10/18 07/11/18 07/12/18 11:30 06:00 06:30 Plt Count 132 L 113 L 108 L INR BUN Creatinine Random Glucose Uric Acid Phosphorus Magnesium Total Bilirubin AST ALT Troponin I B-Natriuretic Peptide TSH Free T4 Total T3 CSF IgG Interpretation Stool Occult Blood Total Protein (ADRIENNE) Albumin (ADRIENNE) Albumin/Globulin (ADRIENNE) Pqbrn-4-Bxwqpwniu ADRI[place]NE Cdjun-4-Mpltaetqn [place] Gamma Globulins (ADRIENNE) [place] M[employer] IEP IgG IEP IgA IEP IgM HERB Screen c-ANCA Proteinase 3 (PR3) p-ANCA Atypical p-ANCA Myeloperoxidase Ab Heparin-Ind Plt Ab Scrn RPR Titer Hepatitis A IgM Ab Hep Bs Antigen Hep Bs Antibody, Quant Hep B Core IgM Ab Hepatitis C Antibody 07/13/18 07/13/18 07/13/18 08:15 08:55 08:55 Plt Count 82 L D INR BUN Creatinine Random Glucose Uric Acid Phosphorus Magnesium Total Bilirubin AST ALT Troponin I B-Natriuretic Peptide TSH Free T4 Total T3 CSF IgG Interpretation Stool Occult Blood Total Protein (ADRIENNE) Albumin (ADRIENNE) Albumin/Globulin (ADRIENNE) Cneyx-3-Kdbqlpket ADRIENNE Iwpgu-7-Pnpcbkdtm [place] Gamma Globulins (ADRIENNE) ADRIENNE M-[employer] IEP IgG IEP IgA IEP IgM HERB Screen c-ANCA Proteinase 3 (PR3) p-ANCA Atypical p-ANCA Myeloperoxidase Ab Heparin-Ind Plt Ab Scrn 1.847 H RPR Titer Hepatitis A IgM Ab Hep Bs Antigen Hep Bs Antibody, Quant Hep B Core IgM Ab Hepatitis C Antibody 07/14/18 07/15/18 07/15/18 08:15 09:50 17:30 Plt Count 83 L 90 L INR BUN Creatinine Random Glucose Uric Acid Phosphorus Magnesium Total Bilirubin AST ALT Troponin I B-Natriuretic Peptide TSH Free T4 Total T3 CSF IgG Interpretation Stool Occult Blood Negative Total Protein (ADRIENNE) Albumin (ADRIENNE) Albumin/Globulin (ADRIENNE) Zvsxz-7-Qcdnmflte ADRIENNE Wumpt-8-Muhoxzmfs [place] Gamma Globulins (ADRIENNE) ADRI[place]NE M-[employer] IEP IgG IEP IgA IEP IgM HERB Screen c-ANCA Proteinase 3 (PR3) p-ANCA Atypical p-ANCA Myeloperoxidase Ab Heparin-Ind Plt Ab Scrn RPR Titer Hepatitis A IgM Ab Hep Bs Antigen Hep Bs Antibody, Quant Hep B Core IgM Ab Hepatitis C Antibody 07/16/18 07:43 Plt Count 82 L INR BUN Creatinine Random Glucose Uric Acid Phosphorus Magnesium Total Bilirubin AST ALT Troponin I B-Natriuretic Peptide TSH Free T4 Total T3 CSF IgG Interpretation Stool Occult Blood Total Protein (ADRIENNE) Albumin (ADRIENNE) Albumin/Globulin (ADRIENNE) Tbmru-3-Foaekbvjz ADRIENNE Akgah-6-Ezyhjamza [place] Gamma Globulins (ADRIENNE) ADRIENNE M-[place] IEP IgG IEP IgA IEP IgM HERB Screen c-ANCA Proteinase 3 (PR3) p-ANCA Atypical p-ANCA Myeloperoxidase Ab Heparin-Ind Plt Ab Scrn RPR Titer Hepatitis A IgM Ab Hep Bs Antigen Hep Bs Antibody, Quant Hep B Core IgM Ab Hepatitis C Antibody ASSESSMENT AND PLAN: Patient is a 77yo male with PMHx of HTN, HLP, systolic CHF, COPD, CKD, CAD s/p stenting, OH, ICD, gout, DM, presented with general weakness and change of mental status. 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 continue to monitor pt/ptt /inr #Acute encephalopathy improving : multifactorial; dementia, volume depletion, medications, and uremia. Mental status is improving, On zyprexa continue # Petechiae and ecchymosis: with elevated PT and PTT. could be multifactorial, mixing study results noted. repeat Fibrinogen noted. waiting for factor levels.; no evidence of circulating anticoagulant, No evidence of Lupus anticoagulant . will continue to monitor. # ELLIOTT on CKD: cont bicarb , improving on gentle iv fluid, dr willis on the case , if doesnot improve possible HD # Transaminitis: improving. No need for rifaximin and lactulose as per GI. # Mild hypotension:due to volume depletion # H/o systolic CHF: hold diuresis in setting of volume depletion. cont coreg, hold for hypotension # Euthyroid sick syndrome: repeat as out pt # DM: cont SSI # thrombocytopenia: positive for hit antibodies [place] rehab [place]. patient had 85% of his food today needs assistance with his food.
--- NOTE | 2018-07-16 21:36 | PN ---
Progress Note (short form) - Note Progress Note: Patient lorie nd examined Purplish discoloration of toes bilaterally Last Vital Signs Temp Pulse Resp BP Pulse Ox 97.7 F 87 20 100/70 97 07/16/18 20:46 07/16/18 20:46 07/16/18 20:46 07/16/18 20:46 07/16/18 09:00 Cor: RSR, No murmurs, No gallops Lungs: Clear to P&A Abd: Soft, Normal bowel sounds, No organomegaly Ext:No significant edema Abnormal Lab Results 07/13/18 07/13/18 07/16/18 08:15 08:55 01:56 WBC MCHC RDW Plt Count Absolute Neuts (auto) Neutrophils % Lymphocytes % PT with INR INR PTT (Actin FS) 116.0 H Chloride Carbon Dioxide BUN Creatinine Random Glucose Calcium Magnesium Total Bilirubin 2.3 H AST 64 H ALT 84 H Liver Fibrosis Score 0.84 H Liver Steatosis Score 0.72 H Total Protein Albumin Cholesterol 88 L Apolipoprotein A-1 42 L Heparin-Ind Plt Ab Scrn 1.847 H 07/16/18 07/16/18 07/16/18 07:43 07:43 07:43 WBC 10.3 H MCHC 31.4 L RDW 16.8 H Plt Count 82 L Absolute Neuts (auto) 9.0 H Neutrophils % 87.8 H Lymphocytes % 7.9 L PT with INR 16.80 H INR 1.42 H PTT (Actin FS) 58.2 H Chloride Carbon Dioxide BUN Creatinine Random Glucose Calcium Magnesium Total Bilirubin AST ALT Liver Fibrosis Score Liver Steatosis Score Total Protein Albumin Cholesterol Apolipoprotein A-1 Heparin-Ind Plt Ab Scrn 07/16/18 07:43 WBC MCHC RDW Plt Count Absolute Neuts (auto) Neutrophils % Lymphocytes % PT with INR INR PTT (Actin FS) Chloride 108 H Carbon Dioxide 18 L BUN 109 H* Creatinine 2.8 H Random Glucose 158 H Calcium 8.2 L Magnesium 3.5 H Total Bilirubin 2.4 H AST ALT 67 H Liver Fibrosis Score Liver Steatosis Score Total Protein 6.3 L Albumin 3.0 L Cholesterol Apolipoprotein A-1 Heparin-Ind Plt Ab Scrn Active Medications Generic Name Dose Route Start Last Admin Trade Name Freq PRN Reason Stop Dose Admin Acetaminophen 650 mg 07/14/18 16:18 07/14/18 17:24 Tylenol - PO 650 mg Q4H PRN Administration PAIN LEVEL 6-10 Atorvastatin Calcium 40 mg 07/15/18 22:00 07/16/18 21:38 Lipitor - PO 40 mg HS CLIVE Administration Budesonide/Formoterol Fumarate 2 puff 07/01/18 10:00 07/16/18 21:38 Symbicort 160/4.5mcg - IH 2 puff BID CLIVE Administration Carvedilol 3.125 mg 07/09/18 22:15 07/16/18 21:38 Coreg - PO 3.125 mg BID CLIVE Administration Cholecalciferol 5,000 unit 07/07/18 16:30 07/16/18 10:23 Vitamin D3 - PO 5,000 unit DAILY CLIVE Administration Febuxostat 40 mg 07/01/18 12:00 07/16/18 10:23 Uloric - PO 40 mg DAILY CLIVE Administration Argatroban 250,000 mcg/ Sodium 250 mls @ 1.07 mls/hr 07/16/18 21:45 Chloride IVPB TITR CLIVE Protocol 0.2 MCG/KG/MIN Insulin Aspart 1 vial 07/01/18 07:00 07/16/18 21:39 Novolog Vial Sliding Scale - SQ 4 units ACHS CLIVE Administration Protocol Olanzapine 2.5 mg 07/09/18 22:00 07/16/18 21:38 Zyprexa - PO 2.5 mg HS CLIVE Administration Polyethylene Glycol 17 gm 07/10/18 13:04 07/11/18 10:26 Miralax (For Daily Use) - PO 17 grams DAILY PRN Administration CONSTIPATION Sodium Bicarbonate 650 mg 07/03/18 10:00 07/16/18 21:38 Sodium Bicarbonate - PO 650 mg BID CLIVE Administration A/P 77 y/o patient with ELLIOTT, DM, HLD, ? baseline dementia, pacemaker, now with purplish discoloration of toes bilaterally HIT ab--1.8 . Awaiting confirmatory serotonin release assay Will switch heparin to argatroban As patient with ELLIOTT, Tbili of 2.4 -- will start argatroban at 0.2mcg/kg/min. Goal PTT-52-75 Will check arterial duplex Discussed with Dr. French, Dr. Monsivais discussed with nursing staff
[2018-07-16] MEDS: OLANZapine 2.5 MG TABLET PO SCH (21:38)
[2018-07-16] MEDS: ATORVASTATIN CA 40 MG TABLET (FP) PO SCH (21:38)
[2018-07-17 01:56] LABS: HEMATOCRIT 40.6 % (35.4-49); HEMOGLOBIN 12.6 GM/dL (11.7-16.9); MEAN CELL VOLUME 93.7 fl (80-96); MEAN PLT VOLUME 9.9 fl (7.5-11.1); RBC 4.33 M/mm3 (4.00-5.60); RDW 16.6 % (11.9-15.9); WHITE BLOOD COUNT 10.1 K/mm3 (4.0-10.0)
[2018-07-17] MEDS: ARGATROBAN - 250,000 MCG in SODIUM CHLORIDE 247.5 ML IVPB SCH ×2 (03:03→21:45)
[2018-07-17 03:15] LABS: PLATELET COUNT 88 K/MM3 (134-434)
[2018-07-17] MEDS: INSULIN SLIDING SCALE (NOVOLOG) 1 VIAL SQ SCH ×4 (06:53→22:45)
[2018-07-17 07:48] LABS: HEMATOCRIT 39.1 % (35.4-49); HEMOGLOBIN 12.4 GM/dL (11.7-16.9); MCH 29.4 pg (25.7-33.7); MCHC 31.7 g/dl (32.0-35.9); MEAN CELL VOLUME 92.7 fl (80-96); MEAN PLT VOLUME 9.7 fl (7.5-11.1); RBC 4.23 M/mm3 (4.00-5.60); WHITE BLOOD COUNT 10.2 K/mm3 (4.0-10.0)
[2018-07-17 08:31] LABS: ALBUMIN 2.7 g/dl (3.4-5.0); BILIRUBIN,TOTAL 1.9 mg/dL (0.2-1); CALCIUM 8.2 mg/dL (8.5-10.1); CREATININE 2.8 mg/dL (0.55-1.3); MAGNESIUM 3.1 mg/dL (1.8-2.4); PHOSPHOROUS 3.9 mg/dL (2.5-4.9); POTASSIUM 4.4 mmol/L (3.5-5.1)
[2018-07-17 08:57] LABS: BLOOD UREA NITROGEN 117.3 mg/dL (7-18)
--- NOTE | 2018-07-17 09:44 | PN ---
Progress Note, Physician Chief Complaint: sob History of Present Illness: The patient is a 77YOM with a PMH of HTN, HLD, CKD, CAD s/p stents, CT s/p defibrillator, gout, COPD, hypothyroidism, and CHF who presents to the ER sent in by Dr. Connolly with generalized weakness, poor appetite, and after becoming hypotensive while in his office. Patient has had two recent admissions for dyspnea on exertion to rule out PE in this ED. Patient has been followed up by a circuit design engineer. Denies fever, chills, cp, N/V/C/D or urinary symptoms. Allergies: NKDA Social Hx: Former smoker. Denies drug or alcohol use. PCP: Dr. Holden Renal: Dr. Yane Connolly PMH PMH of CT (?x 2), severe systolic LV dsyfunction with ICD placed ?2 yrs ago, HTN , HLD, CAD s/p stents, renal dysfunction, COPD (quit cigarettes 10 yrs ago) unintentional weight loss, per family, and gout who presents to the ER with shortness of breath. He was recently discharged from [facility] after being admitted for ?"small CT and levated troponin." (per pt, he was there for two nights). - Current Medication List Current Medications: Active Medications Acetaminophen (Tylenol -) 650 mg PO Q4H PRN PRN Reason: PAIN LEVEL 6-10 Last Admin: 07/14/18 17:24 Dose: 650 mg Atorvastatin Calcium (Lipitor -) 40 mg PO HS [facility] Last Admin: 07/16/18 21:38 Dose: 40 mg Budesonide/Formoterol Fumarate (Symbicort 160/4.5mcg -) 2 puff IH BID [facility] Last Admin: 07/16/18 21:38 Dose: 2 puff Carvedilol (Coreg -) 3.125 mg PO BID [facility] Last Admin: 07/16/18 21:38 Dose: 3.125 mg Cholecalciferol (Vitamin D3 -) 5,000 unit PO DAILY [facility] Last Admin: 07/16/18 10:23 Dose: 5,000 unit Febuxostat (Uloric -) 40 mg PO DAILY [facility] Last Admin: 07/16/18 10:23 Dose: 40 mg Argatroban 250,000 mcg/ Sodium (Chloride) 250 mls @ 1.07 mls/hr IVPB TITR [facility]; Protocol Last Admin: 07/17/18 03:03 Dose: 0.2 mcg/kg/min, 1.07 mls/hr Insulin Aspart (Novolog Vial Sliding Scale -) 1 vial SQ ACHS [facility]; Protocol Last Admin: 07/17/18 06:53 Dose: Not Given Olanzapine (Zyprexa -) 2.5 mg PO HS [facility] Last Admin: 07/16/18 21:38 Dose: 2.5 mg Polyethylene Glycol (Miralax (For Daily Use) -) 17 gm PO DAILY PRN PRN Reason: CONSTIPATION Last Admin: 07/11/18 10:26 Dose: 17 grams Sodium Bicarbonate (Sodium Bicarbonate -) 650 mg PO BID [facility] Last Admin: 07/16/18 21:38 Dose: 650 mg - Objective Vital Signs: Vital Signs Temperature 97.6 F 07/17/18 06:55 Pulse Rate 90 07/17/18 06:55 Respiratory Rate 22 H 07/17/18 06:55 Blood Pressure 92/66 07/17/18 06:55 O2 Sat by Pulse Oximetry (%) 97 07/16/18 21:00 Eyes: Yes: WNL, Conjunctiva Clear, EOM Intact HENT: Yes: WNL, Atraumatic, Normocephalic Neck: Yes: WNL, Supple, Trachea Midline Cardiovascular: Yes: WNL, Regular Rate and Rhythm Respiratory: Yes: WNL, Regular, CTA Bilaterally Gastrointestinal: Yes: WNL, Normal Bowel Sounds Genitourinary: Yes: WNL Musculoskeletal: Yes: WNL Extremities: Yes: WNL Edema: No Integumentary: Yes: WNL Neurological: Yes: WNL, Alert, Oriented ...Motor Strength: WNL Psychiatric: Yes: WNL Labs: CBC, BMP 07/17/18 06:30 07/17/18 06:30 INR, PTT INR 1.42 (0.83-1.09) H 07/16/18 07:43 Fibrinogen 290.0 mg/dL (238-498) D 07/17/18 00:00 Problem List - Problems (1) ELLIOTT (acute kidney injury) Code(s): N17.9 - ACUTE KIDNEY FAILURE, UNSPECIFIED (2) Elevated transaminase level Code(s): R74.0 - NONSPEC ELEV OF LEVELS OF TRANSAMNS & LACTIC ACID DEHYDRGNSE (3) Hypotension Code(s): I95.9 - HYPOTENSION, UNSPECIFIED Qualifiers: Hypotension type: unspecified hypotension type Qualified Code(s): I95.9 - Hypotension, unspecified (4) Weakness Code(s): R53.1 - WEAKNESS (5) Acute on chronic renal insufficiency Code(s): N28.9 - DISORDER OF KIDNEY AND URETER, UNSPECIFIED; N18.9 - CHRONIC KIDNEY DISEASE, UNSPECIFIED (6) Anemia Code(s): D64.9 - ANEMIA, UNSPECIFIED Qualifiers: Anemia type: unspecified type Qualified Code(s): D64.9 - Anemia, unspecified (7) Atypical chest pain Code(s): R07.89 - OTHER CHEST PAIN (8) COPD (chronic obstructive pulmonary disease) Code(s): J44.9 - CHRONIC OBSTRUCTIVE PULMONARY DISEASE, UNSPECIFIED (9) Cardiac arrhythmia Code(s): I49.9 - CARDIAC ARRHYTHMIA, UNSPECIFIED (10) Chest wall pain Code(s): R07.89 - OTHER CHEST PAIN (11) Colonic adenoma Code(s): D12.6 - BENIGN NEOPLASM OF COLON, UNSPECIFIED (12) Coronary arteriosclerosis Code(s): I25.10 - ATHSCL HEART DISEASE OF [place] CORONARY ARTERY W/O ANG PCTRS (13) DVT prophylaxis Code(s): [id number] - (14) Diabetes mellitus type 2 in obese Code(s): E11.9 - TYPE 2 DIABETES MELLITUS WITHOUT COMPLICATIONS; E66.9 - OBESITY , UNSPECIFIED (15) Dilated bile duct Code(s): K83.8 - OTHER SPECIFIED DISEASES OF BILIARY TRACT (16) Diverticulosis large intestine w/o perforation or abscess w/bleeding Code(s): K57.31 - DVRTCLOS OF LG INT W/O PERFORATION OR ABSCESS W BLEEDING (17) Dyspnea Code(s): R06.00 - DYSPNEA, UNSPECIFIED Qualifiers: Dyspnea type: unspecified Qualified Code(s): R06.00 - Dyspnea, unspecified (18) Elevated d-dimer Code(s): R79.89 - OTHER SPECIFIED ABNORMAL FINDINGS OF BLOOD CHEMISTRY (19) Full code status Code(s): Z78.9 - OTHER SPECIFIED HEALTH STATUS (20) Gout Code(s): M10.9 - GOUT, UNSPECIFIED (21) Gout attack Code(s): M10.9 - GOUT, UNSPECIFIED (22) History of heart artery stent Code(s): Z95.5 - PRESENCE OF CORONARY ANGIOPLASTY IMPLANT AND GRAFT (23) Hyperkalemia Code(s): E87.5 - HYPERKALEMIA (24) Hyperlipidemia Code(s): E78.5 - HYPERLIPIDEMIA, UNSPECIFIED (25) Hypertension Code(s): I10 - ESSENTIAL (PRIMARY) HYPERTENSION (26) Hypervolemia Code(s): E87.70 - FLUID OVERLOAD, UNSPECIFIED Qualifiers: Hypervolemia type: unspecified Qualified Code(s): E87.70 - Fluid overload, unspecified (28) ICD (implantable cardioverter-defibrillator) in place Code(s): Z95.810 - PRESENCE OF AUTOMATIC (IMPLANTABLE) CARDIAC DEFIBRILLATOR (29) Ileus Code(s): K56.7 - ILEUS, UNSPECIFIED (30) Insomnia Code(s): G47.00 - INSOMNIA, UNSPECIFIED (31) Jaundice Code(s): R17 - UNSPECIFIED JAUNDICE (32) Knee effusion, left Code(s): M25.462 - EFFUSION, LEFT KNEE (33) Left arm numbness Code(s): R20.0 - ANESTHESIA OF SKIN (34) Left upper quadrant pain Code(s): R10.12 - LEFT UPPER QUADRANT PAIN (35) Myocardial infarct Code(s): I21.9 - ACUTE MYOCARDIAL INFARCTION, UNSPECIFIED (36) Neck muscle strain Code(s): S16.1XXA - STRAIN OF MUSCLE, FASCIA AND TENDON AT NECK LEVEL, INIT (37) Neck pain Code(s): M54.2 - CERVICALGIA (38) Pacemaker complications Code(s): T82.9XXA - UNSP COMP OF CARDIAC AND VASCULAR PROSTH DEV/GRFT, INIT (39) Polyarthritis Code(s): M13.0 - POLYARTHRITIS, UNSPECIFIED (40) Renal dysfunction Code(s): N28.9 - DISORDER OF KIDNEY AND URETER, UNSPECIFIED (41) Renal insufficiency Code(s): N28.9 - DISORDER OF KIDNEY AND URETER, UNSPECIFIED (42) Severe left ventricular systolic dysfunction Code(s): I51.9 - HEART DISEASE, UNSPECIFIED (43) Shortness of breath Code(s): R06.02 - SHORTNESS OF BREATH (44) Systolic CHF Code(s): I50.20 - UNSPECIFIED SYSTOLIC (CONGESTIVE) HEART FAILURE (45) Weight loss, unintentional Code(s): R63.4 - ABNORMAL WEIGHT LOSS Assessment/Plan - Problems (1) Acute on chronic systolic and diastolic heart failure, NYHA class 1 Assessment/Plan: Carvedilol reduced to 3.125 mg daily due to hypotension, ?change in mental status. ACEI, spironolactone held due to renal dysfunction. F/u BUN/Cr, electrolytes, daily wt, Is and Os. 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 (2) Weakness Code(s): R53.1 - WEAKNESS (3) Acute on chronic renal insufficiency Code(s): N28.9 - DISORDER OF KIDNEY AND URETER, UNSPECIFIED; N18.9 - CHRONIC KIDNEY DISEASE, UNSPECIFIED (4) COPD (chronic obstructive pulmonary disease) Code(s): J44.9 - CHRONIC OBSTRUCTIVE PULMONARY DISEASE, UNSPECIFIED (5) Gout Code(s): M10.9 - GOUT, UNSPECIFIED (6) History of heart artery stent Code(s): Z95.5 - PRESENCE OF CORONARY ANGIOPLASTY IMPLANT AND GRAFT (7) Hyperlipidemia Code(s): E78.5 - HYPERLIPIDEMIA, UNSPECIFIED (8) Hypertension Code(s): I10 - ESSENTIAL (PRIMARY) HYPERTENSION (9) ICD (implantable cardioverter-defibrillator) in place Code(s): Z95.810 - PRESENCE OF AUTOMATIC (IMPLANTABLE) CARDIAC DEFIBRILLATOR SOB wheezes d/c IVF cxr
[2018-07-17] MEDS: CARVEDILOL 3.125 MG TABLET (FP) PO SCH ×2 (10:06→22:29)
[2018-07-17] MEDS: CHOLECALCIFEROL (VIT D3) 1,000 UNIT (25 MCG) TABLET PO SCH (10:06)
[2018-07-17] MEDS: SODIUM BICARBONATE 650 MG TABLET PO SCH ×2 (10:06→22:29)
[2018-07-17] MEDS: FEBUXOSTAT 40 MG TAB PO SCH (10:06)
[2018-07-17] MEDS: BUDESONIDE/FORMETEROL FUMARATE 160/4.5 mcg INHALER IH SCH ×2 (10:07→22:30)
[2018-07-17 12:26] LABS: PLATELET COUNT 86 K/MM3 (134-434)
--- NOTE | 2018-07-17 13:05 | PN ---
Progress Note (short form) - Note Progress Note: Patient seen in follow up. No new complaints, but somewhat incoherent. Has no IV access since yesterday - Argatroban not yet started. Dyspneic yesterday - IV fluids stopped - Dose of Lasix given. Inpatient Meds reviewed. Current Medications Generic Name Dose Route Start Last Admin Trade Name Freq PRN Reason Stop Dose Admin Acetaminophen 650 mg 07/14/18 16:18 07/14/18 17:24 Tylenol - PO 650 mg Q4H PRN Administration PAIN LEVEL 6-10 Atorvastatin Calcium 40 mg 07/15/18 22:00 07/16/18 21:38 Lipitor - PO 40 mg HS CLIVE Administration Budesonide/Formoterol Fumarate 2 puff 07/01/18 10:00 07/17/18 10:07 Symbicort 160/4.5mcg - IH 2 puff BID CLIVE Administration Carvedilol 3.125 mg 07/09/18 22:15 07/17/18 10:06 Coreg - PO 3.125 mg BID CLIVE Administration Cholecalciferol 5,000 unit 07/07/18 16:30 07/17/18 10:06 Vitamin D3 - PO 5,000 unit DAILY CLIVE Administration Febuxostat 40 mg 07/01/18 12:00 07/17/18 10:06 Uloric - PO 40 mg DAILY CLIVE Administration Argatroban 250,000 mcg/ Sodium 250 mls @ 1.07 mls/hr 07/16/18 21:45 07/17/18 03:03 Chloride IVPB 0.2 mcg/kg/min TITR CLIVE 1.07 mls/hr Administration Protocol 0.2 MCG/KG/MIN Insulin Aspart 1 vial 07/01/18 07:00 07/17/18 12:21 Novolog Vial Sliding Scale - SQ 4 units ACHS CLIVE Administration Protocol Olanzapine 2.5 mg 07/09/18 22:00 07/16/18 21:38 Zyprexa - PO 2.5 mg HS CLIVE Administration Polyethylene Glycol 17 gm 07/10/18 13:04 07/11/18 10:26 Miralax (For Daily Use) - PO 17 grams DAILY PRN Administration CONSTIPATION Sodium Bicarbonate 650 mg 07/03/18 10:00 07/17/18 10:06 Sodium Bicarbonate - PO 650 mg BID CLIVE Administration On Examination: Last Vital Signs Temp Pulse Resp BP Pulse Ox 97.6 F 87 18 111/69 97 07/17/18 06:55 07/17/18 10:00 07/17/18 10:00 07/17/18 10:00 07/16/18 21:00 General: In no acute distress, supine, in bed, restless, complaining about restraints. Extremities: No pallor or icterus. Chest: breathing comfortably Abdomen: Not distended,non-tender. Neuro: Alert, confused. Labs: CBC, BMP 07/17/18 06:30 07/17/18 06:30 Assessment. 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 Heparin stopped and awaiting initiation of DTI. Lower extremity arterial dopplers pending
[2018-07-17] MEDS ORDERED: LORazepam 2 MG/ML SDV VIAL IM ONE (13:50)
--- NOTE | 2018-07-17 14:12 | PN ---
Progress Note, Physician History of Present Illness: Pt seen and examined at bedside. He is tolerating diet. He does get agitated. He pulled out his IV access. - Current Medication List Current Medications: Active Medications Acetaminophen (Tylenol -) 650 mg PO Q4H PRN PRN Reason: PAIN LEVEL 6-10 Last Admin: 07/14/18 17:24 Dose: 650 mg Atorvastatin Calcium (Lipitor -) 40 mg PO HS [facility] Last Admin: 07/16/18 21:38 Dose: 40 mg Budesonide/Formoterol Fumarate (Symbicort 160/4.5mcg -) 2 puff IH BID [facility] Last Admin: 07/17/18 10:07 Dose: 2 puff Carvedilol (Coreg -) 3.125 mg PO BID [facility] Last Admin: 07/17/18 10:06 Dose: 3.125 mg Cholecalciferol (Vitamin D3 -) 5,000 unit PO DAILY [facility] Last Admin: 07/17/18 10:06 Dose: 5,000 unit Febuxostat (Uloric -) 40 mg PO DAILY [facility] Last Admin: 07/17/18 10:06 Dose: 40 mg Argatroban 250,000 mcg/ Sodium (Chloride) 250 mls @ 1.07 mls/hr IVPB TITR [facility]; Protocol Last Admin: 07/17/18 03:03 Dose: 0.2 mcg/kg/min, 1.07 mls/hr Insulin Aspart (Novolog Vial Sliding Scale -) 1 vial SQ ACHS [facility]; Protocol Last Admin: 07/17/18 12:21 Dose: 4 units Olanzapine (Zyprexa -) 2.5 mg PO HS [facility] Last Admin: 07/16/18 21:38 Dose: 2.5 mg Polyethylene Glycol (Miralax (For Daily Use) -) 17 gm PO DAILY PRN PRN Reason: CONSTIPATION Last Admin: 07/11/18 10:26 Dose: 17 grams Sodium Bicarbonate (Sodium Bicarbonate -) 650 mg PO BID [facility] Last Admin: 07/17/18 10:06 Dose: 650 mg - Objective Vital Signs: Vital Signs Temperature 97.6 F 07/17/18 06:55 Pulse Rate 87 07/17/18 10:00 Respiratory Rate 18 07/17/18 10:00 Blood Pressure 111/69 07/17/18 10:00 O2 Sat by Pulse Oximetry (%) 97 07/16/18 21:00 Constitutional: Yes: Calm Eyes: Yes: Conjunctiva Clear HENT: Yes: Atraumatic Cardiovascular: Yes: S1, S2 Respiratory: Yes: On Nasal O2 Gastrointestinal: Yes: Soft Musculoskeletal: Yes: WNL Edema: Yes Edema: LLE: 1+, RLE: 1+ Neurological: Yes: Lethargy Labs: CBC, BMP 07/17/18 06:30 07/17/18 06:30 INR, PTT INR 1.42 (0.83-1.09) H 07/16/18 07:43 Fibrinogen 290.0 mg/dL (238-498) D 07/17/18 00:00 Assessment/Plan Current Medications Generic Name Dose Route Start Last Admin Trade Name Freq PRN Reason Stop Dose Admin Acetaminophen 650 mg 07/14/18 16:18 07/14/18 17:24 Tylenol - PO 650 mg Q4H PRN Administration PAIN LEVEL 6-10 Atorvastatin Calcium 40 mg 07/15/18 22:00 07/16/18 21:38 Lipitor - PO 40 mg HS CLIVE Administration Budesonide/Formoterol Fumarate 2 puff 07/01/18 10:00 07/17/18 10:07 Symbicort 160/4.5mcg - IH 2 puff BID CLIVE Administration Carvedilol 3.125 mg 07/09/18 22:15 07/17/18 10:06 Coreg - PO 3.125 mg BID CLIVE Administration Cholecalciferol 5,000 unit 07/07/18 16:30 07/17/18 10:06 Vitamin D3 - PO 5,000 unit DAILY CLIVE Administration Febuxostat 40 mg 07/01/18 12:00 07/17/18 10:06 Uloric - PO 40 mg DAILY CLIVE Administration Argatroban 250,000 mcg/ Sodium 250 mls @ 1.07 mls/hr 07/16/18 21:45 07/17/18 03:03 Chloride IVPB 0.2 mcg/kg/min TITR CLIVE 1.07 mls/hr Administration Protocol 0.2 MCG/KG/MIN Insulin Aspart 1 vial 07/01/18 07:00 07/17/18 12:21 Novolog Vial Sliding Scale - SQ 4 units ACHS CLIVE Administration Protocol Olanzapine 2.5 mg 07/09/18 22:00 07/16/18 21:38 Zyprexa - PO 2.5 mg HS CLIVE Administration Polyethylene Glycol 17 gm 07/10/18 13:04 07/11/18 10:26 Miralax (For Daily Use) - PO 17 grams DAILY PRN Administration CONSTIPATION Sodium Bicarbonate 650 mg 07/03/18 10:00 07/17/18 10:06 Sodium Bicarbonate - PO 650 mg BID CLIVE Administration 77 year old gentleman with hx of CKD stage 3 (baseline Cr 1.8-2), CAD s/p PCI, CHF with very low LVEF, hyperlipidemia, hypertension, AICD placement, DM, COPD who presented from Dr. Connolly's office with hypotension and found to have increasing confusion and ELLIOTT. #ELLIOTT on CKD #Hypotension #Altered mental status #DM #Hypertension #CHF #metabolic acidosis with respiratory compensation Plan - bp is improved - do not recommend fluids - lasix of he develops worsening congestion - pt is tolerating diet - simple cyst n ultrasound with patent renal veins - cont to monitor renal function - low potassium diet - avoid kayexylate - prognosis is guarded at this time
--- NOTE | 2018-07-17 16:24 | PN ---
Progress Note (short form) - Note Progress Note: Patient is more awake and alert today , family at bedside. No IV access patient. Vital Signs Temperature 97.6 F 07/17/18 06:55 Pulse Rate 87 07/17/18 10:00 Respiratory Rate 18 07/17/18 10:00 Blood Pressure 111/69 07/17/18 10:00 O2 Sat by Pulse Oximetry (%) 97 07/16/18 21:00 GENERAL: The patient is awake, but continues to be confused , in no acute distress. HEAD: Normal with no signs of trauma. EYES: PERRL, extraocular movements intact, sclera anicteric, conjunctiva clear. ENT: Ears normal, oropharynx clear without exudates, moist mucous membranes. NECK: Trachea midline, full range of motion, supple. LUNGS: Breath sounds equal, clear to auscultation bilaterally, no wheezes, no crackles, no accessory muscle use. HEART: Regular rate and rhythm, S1, S2 without murmur, rub or gallop. ABDOMEN: Soft, nontender, nondistended, normoactive bowel sounds, ecchymosis around the umbilical cord is improving. EXTREMITIES: 2+ pulses, cool to touch, L>R, edema of LLE , with purple discoloration the 1st 3 toes improving and with right last toes discoloration improving.. NEUROLOGICAL: Cranial nerves II through XII grossly intact. Normal speech, gait not observed. PSYCH: better today, answers to questions SKIN: Warm, dry, normal turgor, no rashes or lesions noted CBCD WBC 10.2 K/mm3 (4.0-10.0) H 07/17/18 06:30 RBC 4.23 M/mm3 (4.00-5.60) 07/17/18 06:30 Hgb 12.4 GM/dL (11.7-16.9) 07/17/18 06:30 Hct 39.1 % (35.4-49) 07/17/18 06:30 MCV 92.7 fl (80-96) 07/17/18 06:30 MCHC 31.7 g/dl (32.0-35.9) L 07/17/18 06:30 RDW 17.0 % (11.9-15.9) H 07/17/18 06:30 Plt Count 86 K/MM3 (134-434) L 07/17/18 06:30 MPV 9.7 fl (7.5-11.1) 07/17/18 06:30 CMP Sodium 138 mmol/L (136-145) 07/17/18 06:30 Potassium 4.4 mmol/L (3.5-5.1) 07/17/18 06:30 Chloride 106 mmol/L (98-107) 07/17/18 06:30 Carbon Dioxide 22 mmol/L (21-32) 07/17/18 06:30 Anion Gap 10 MMOL/L (8-16) 07/17/18 06:30 BUN 117.3 mg/dL (7-18) H* 07/17/18 06:30 Creatinine 2.8 mg/dL (0.55-1.3) H 07/17/18 06:30 Glucose 98 mg/dL (65-99) 07/13/18 08:55 Random Glucose 126 mg/dL (74-106) H 07/17/18 06:30 Calcium 8.2 mg/dL (8.5-10.1) L 07/17/18 06:30 Total Bilirubin 1.9 mg/dL (0.2-1) H 07/17/18 06:30 AST 39 U/L (15-37) H 07/17/18 06:30 ALT 56 U/L (13-61) 07/17/18 06:30 Alkaline Phosphatase 79 U/L (45-117) 07/17/18 06:30 Total Protein 6.0 g/dl (6.4-8.2) L 07/17/18 06:30 Albumin 2.7 g/dl (3.4-5.0) L 07/17/18 06:30 CARDIAC ENZYMES Creatine Kinase 160 U/L (26-308) 06/30/18 21:30 Troponin I 0.02 ng/ml (0.00-0.05) 07/01/18 11:25 Current Medications Generic Name Dose Route Start Last Admin Trade Name Freq PRN Reason Stop Dose Admin Acetaminophen 650 mg 07/14/18 16:18 07/14/18 17:24 Tylenol - PO 650 mg Q4H PRN Administration PAIN LEVEL 6-10 Atorvastatin Calcium 40 mg 07/15/18 22:00 07/16/18 21:38 Lipitor - PO 40 mg HS CLIVE Administration Budesonide/Formoterol Fumarate 2 puff 07/01/18 10:00 07/17/18 10:07 Symbicort 160/4.5mcg - IH 2 puff BID [facility]IVE Administration Carvedilol 3.125 mg 07/09/18 22:15 07/17/18 10:06 Coreg - PO 3.125 mg BID CLIVE Administration Cholecalciferol 5,000 unit 07/07/18 16:30 07/17/18 10:06 Vitamin D3 - PO 5,000 unit DAILY [facility] Administration Febuxostat 40 mg 07/01/18 12:00 07/17/18 10:06 Uloric - PO 40 mg DAILY [facility] Administration Argatroban 250,000 mcg/ Sodium 250 mls @ 1.07 mls/hr 07/16/18 21:45 07/17/18 03:03 Chloride IVPB 0.2 mcg/kg/min TITR [facility] 1.07 mls/hr Administration Protocol 0.2 MCG/KG/MIN Insulin Aspart 1 vial 07/01/18 07:00 07/17/18 12:21 Novolog Vial Sliding Scale - SQ 4 units ACHS CLIVE Administration Protocol Olanzapine 2.5 mg 07/09/18 22:00 07/16/18 21:38 Zyprexa - PO 2.5 mg HS CLIVE Administration Polyethylene Glycol 17 gm 07/10/18 13:04 07/11/18 10:26 Miralax (For Daily Use) - PO 17 grams DAILY PRN Administration CONSTIPATION Sodium Bicarbonate 650 mg 07/03/18 10:00 07/17/18 10:06 Sodium Bicarbonate - PO 650 mg BID CLIVE Administration Home Medications Medication Instructions Recorded Aspirin [ASA -] 81 mg PO DAILY 01/02/17 Cholecalciferol (Vitamin D3) 5,000 unit PO WEEKLY 01/02/17 [Vitamin D -] Febuxostat [Uloric] 40 mg PO DAILY 01/02/17 Gabapentin 300 mg PO DAILY 01/02/17 Glimepiride [Amaryl] 2 mg PO DAILY 01/02/17 Lipitor 10 mg PO HS 01/02/17 Carvedilol [Coreg -] 3.125 mg PO BID 06/17/18 Budesonide/Formeterol Fumarate 2 puff IH BID #1 inhaler 06/21/18 [SYMBICORT 160/4.5mcg -] Assessment and plan: Patient is a 77yo male with PMHx of HTN, HLP, systolic CHF, COPD, CKD, CAD s/p stenting, DC, ICD, gout, DM, presented with general weakness and change of mental status. #Acute discoloration of left lower extremity and RLE : off heparin now, due to HIT2 positive, On Argotroban now as per hem/onc. continue to monitor pt/ptt / inr #Acute encephalopathy improved: multifactorial; dementia, volume depletion, medications, and uremia. Mental status is improving, On zyprexa continue # Petechiae and ecchymosis: with elevated PT and PTT. could be multifactorial, mixing study results noted. repeat Fibrinogen noted. waiting for factor levels.; no evidence of circulating anticoagulant, No evidence of Lupus anticoagulant . will continue to monitor. # ELLIOTT on CKD: cont bicarb , improving on gentle iv fluid, dr willis on the case , if doesnot improve possible HD # Transaminitis: improving. No need for rifaximin and lactulose as per GI. # Mild hypotension:due to volume depletion # H/o systolic CHF: hold diuresis in setting of volume depletion. 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 patient had 75% of his food today needs assistance with his food. Visit type - Emergency Visit Emergency Visit: Yes ED Registration Date: 07/01/18 Care time: The patient presented to the Emergency Department on the above date and was hospitalized for further evaluation of their emergent condition. - New Patient This patient is new to me today: No - Critical Care Critical Care patient: No - Discharge Referral Referred to [facility] Med [facility] No
--- NOTE | 2018-07-17 16:34 | PROC ---
Central Line Insertion Indication: Poor Venous Access Risks and Benefits Explained: Yes (To Daughter over the phone) Consent on Chart: No (Consent aquired over the phone) Central Line: Triple Lumen Catheter Anesthesia: 1% Lidocaine Sterile Technique: Yes Ultrasound Guided Assistance: Yes Position: Right Internal Jugular Post Insertion: Yes: Bilateral Breath Sounds, Chest X-Ray Ordered Sterile Dressing Applied: Yes Remarks: Pt required 1mg of ativan for agitation after pulling out left IJ on first attempt. Second attempt, right IJ placed without complications.
[2018-07-17] MEDS ORDERED: INSULIN (NOVOLOG MIX 70/30) 100 UNITS/ML MDV SQ ONE (17:31)
[2018-07-17] MEDS ORDERED: INSULIN (NOVOLOG) ASPART 100 UNITS/ML 10ML VIAL ONE (17:31)
[2018-07-17] MEDS: ATORVASTATIN CA 40 MG TABLET (FP) PO SCH (22:29)
[2018-07-17] MEDS: OLANZapine 2.5 MG TABLET PO SCH (22:29)
--- NOTE | 2018-07-18 06:47 | PN ---
Physical Exam: SUBJECTIVE: Patient seen and examined at bed side , sleepy in bed nurse reports some agitation over night , received ativan while Central line was placed . OBJECTIVE: Vital Signs Period Temp Pulse Resp BP Sys/Robbins Pulse Ox Last 24 Hr 97.6 F-98.5 F 63-90 18-22 92-111/63-71 100-100 GENERAL:AOX 1-2, NAD. In general confused/forgetful, fatigued, lethargic, HEAD: NCAT EYES: PERRLA, EOMI EARS, NOSE, THROAT: MMM LUNGS: CTAB HEART: RRR, no murmurs heard, defibrillator in LUQ ABDOMEN: Soft, NTND, normoactive bowel sounds, no guarding, some ecchymosis in umbilical region along w/ petechia along abdomen LOWER EXTREMITIES: 2+ pulses, warm, well-perfused. No calf tenderness.. b/l foot/ankle swelling and erythema, TTP. L toes are cold discoloration improving compare to yesterday, DP pulses are palpable NEUROLOGICAL: no focal deficit PSYCHIATRIC: flat effect SKIN: Warm, dry, Laboratory Results - last 24 hr 07/15/18 07/17/18 07/17/18 09:50 06:30 06:30 WBC 10.2 H RBC 4.23 Hgb 12.4 Hct 39.1 MCV 92.7 MCH 29.4 MCHC 31.7 L RDW 17.0 H Plt Count 86 L MPV 9.7 PTT (Actin FS) 36.8 H Sodium Potassium Chloride Carbon Dioxide Anion Gap BUN Creatinine Est GFR (CKD-EPI)AfAm Est GFR (CKD-EPI)NonAf POC Glucometer Random Glucose Calcium Phosphorus Magnesium Total Bilirubin AST ALT Alkaline Phosphatase Total Protein Albumin Heparin-Ind Plt Ab Scrn 1.726 H 07/17/18 07/17/18 07/17/18 06:30 12:20 17:20 WBC RBC Hgb Hct MCV MCH MCHC RDW Plt Count MPV PTT (Actin FS) Sodium 138 Potassium 4.4 Chloride 106 Carbon Dioxide 22 Anion Gap 10 BUN 117.3 H* Creatinine 2.8 H Est GFR (CKD-EPI)AfAm 24.29 Est GFR (CKD-EPI)NonAf 20.96 POC Glucometer 202 167 Random Glucose 126 H Calcium 8.2 L Phosphorus 3.9 Magnesium 3.1 H Total Bilirubin 1.9 H AST 39 H ALT 56 Alkaline Phosphatase 79 Total Protein 6.0 L Albumin 2.7 L Heparin-Ind Plt Ab Scrn 07/17/18 07/17/18 07/17/18 20:00 21:13 22:43 WBC RBC Hgb Hct MCV MCH MCHC RDW Plt Count MPV PTT (Actin FS) 38.6 H Sodium Potassium Chloride Carbon Dioxide Anion Gap BUN Creatinine Est GFR (CKD-EPI)AfAm Est GFR (CKD-EPI)NonAf POC Glucometer 163 149 Random Glucose Calcium Phosphorus Magnesium Total Bilirubin AST ALT Alkaline Phosphatase Total Protein Albumin Heparin-Ind Plt Ab Scrn 07/18/18 07/18/18 00:07 06:10 WBC RBC Hgb Hct MCV MCH MCHC RDW Plt Count MPV PTT (Actin FS) 115.4 H Sodium Potassium Chloride Carbon Dioxide Anion Gap BUN Creatinine Est GFR (CKD-EPI)AfAm Est GFR (CKD-EPI)NonAf POC Glucometer 171 Random Glucose Calcium Phosphorus Magnesium Total Bilirubin AST ALT Alkaline Phosphatase Total Protein Albumin Heparin-Ind Plt Ab Scrn Active Medications Generic Name Dose Route Start Last Admin Trade Name Freq PRN Reason Stop Dose Admin Acetaminophen 650 mg 07/14/18 16:18 07/14/18 17:24 Tylenol - PO 650 mg Q4H PRN Administration PAIN LEVEL 6-10 Atorvastatin Calcium 40 mg 07/15/18 22:00 07/17/18 22:29 Lipitor - PO 40 mg HS CLIVE Administration Budesonide/Formoterol Fumarate 2 puff 07/01/18 10:00 07/17/18 22:30 Symbicort 160/4.5mcg - IH 2 puff BID CLIVE Administration Carvedilol 3.125 mg 07/09/18 22:15 07/17/18 22:29 Coreg - PO 3.125 mg BID CLIVE Administration Cholecalciferol 5,000 unit 07/07/18 16:30 07/17/18 10:06 Vitamin D3 - PO 5,000 unit DAILY CLIVE Administration Febuxostat 40 mg 07/01/18 12:00 07/17/18 10:06 Uloric - PO 40 mg DAILY CLIVE Administration Argatroban 250,000 mcg/ Sodium 250 mls @ 1.2 mls/hr 07/16/18 21:45 07/17/18 21:45 Chloride IVPB 0.22 mcg/kg/min TITR CLIVE 1.17 mls/hr Administration Protocol 0.225 MCG/KG/MIN Insulin Aspart 1 vial 07/01/18 07:00 07/17/18 22:45 Novolog Vial Sliding Scale - SQ Not Given ACHS CLIVE Protocol Olanzapine 2.5 mg 07/09/18 22:00 07/17/18 22:29 Zyprexa - PO 2.5 mg HS CLIVE Administration Polyethylene Glycol 17 gm 07/10/18 13:04 07/11/18 10:26 Miralax (For Daily Use) - PO 17 grams DAILY PRN Administration CONSTIPATION Sodium Bicarbonate 650 mg 07/03/18 10:00 07/17/18 22:29 Sodium Bicarbonate - PO 650 mg BID CLIVE Administration CBC, BMP 07/18/18 06:30 07/18/18 10:12 ASSESSMENT/PLAN: 77 y/o M PMH HTN, HLD, LV dysfunction/CHF, CKD 4, CAD s/p stents, OH s/p defribilator, gout, DM, COPD due to smoking history?, who presented from Dr. Hood office with Weakness, poor PO intake, hypotension and found to have increasing confusion and ELLIOTT. # acute on chronic Metabolic encephalopathy vs suspected worsening dementia, poor PO intake. possible worsening Alzheimer vs frontotemporal dementia * CT head w/o acute changes * MRI is not an option since has a PPM/defibrilator * ammonia fluctuating but unlikely to be contributing to AMS, no need for lactulose, GI recs appreciated * psych consulted,c/w zyprexa per psych #new petechiae and abdominal echymosis due to thromocytopenia * HIT positive * dc hep GTt * start Argatroban drip with monitor Ptt per hem/oncology * Hold ASA * monitor for any signs of bleeding # left big toe ischemia likely due to embolic events due to DIC * was on hep Gtt , dc due to HIT + , started on Argabtroban drip with monitor PTT, with Goal Ptt 50-[address] Shelton * left big toe is improving and less purple today and b/l DP palpated now #ELLIOTT on CKD stage4 2/2 volume depletion, poor * nephro consulted, Sushil * UA, MM immuno w/u neg * FeUrea was 38.5% indicating slight tubular dysfunction * hold ACEi and diuretics for now * encourage PO hydration, started on clinimix by nephro given his worsening dementia state and poor po intake * c/w PO bicarbonate for metabolic acidosis #acute systolic and diastolic CHF with Severe LV dysfunction * cardiology consulted , dc fluids , reduce BB to 3.125 due to hypotension , hold ASA * hols ACEI and spirnolactone due to kidney function #Acute Transaminitis w/ elevated INR 1.79: likely 2/2 hepatic congestion 2/2 CHF w/ severe low EF * hepatitis panel unremarkable * Ultrasound of the RUQ: fatty liver vs hepatocellular disease -restart lipitor at higher dose of 40 given embolic events and decreased vascular flow as mentioned above * No need for rifaximin and lactulose and tx of CHF will benefit the liver and should improve the LFTs, GI recs appreciated * Repeat colonoscopy in 2021 oupt #Hx of gout with elevated Uric acid - no signs of gout * c/w home febuxostat #elevated TSH, and FT4, * minerva euthyroid sick syndrom repeat lab as out pt after acute phase resolved #DM: chronic * hold diabetic meds * ISS * BGM ACHS #CAD: chronic * hold ASA in setting of petechia and echymosis * started on Argatroban GTT for ischedmia in his big toe , #FEN * encourage PO hydration, started on clinimix by nephro given his worsening dementia state and poor po intake * replete prn * diabetic/sodium diet #Prophylaxis * hold SQH tid w/ petechia * scd b/l #Dispo * med surg * pt has bed at [facility], however holding off on dc until medically optimized * family has decided for PEG. will need to optimize INR and plt Visit type - Emergency Visit Emergency Visit: Yes ED Registration Date: 07/01/18 Care time: The patient presented to the Emergency Department on the above date and was hospitalized for further evaluation of their emergent condition. - New Patient This patient is new to me today: Yes Date on this admission: 07/18/18 - Critical Care Critical Care patient: No
[2018-07-18] MEDS: INSULIN SLIDING SCALE (NOVOLOG) 1 VIAL SQ SCH ×4 (07:07→22:25)
[2018-07-18 07:48] LABS: HEMATOCRIT 35.1 % (35.4-49); HEMOGLOBIN 11.3 GM/dL (11.7-16.9); MCH 29.5 pg (25.7-33.7); MCHC 32.3 g/dl (32.0-35.9); MEAN CELL VOLUME 91.4 fl (80-96); MEAN PLT VOLUME 9.2 fl (7.5-11.1); PLATELET COUNT 78 K/MM3 (134-434); RBC 3.84 M/mm3 (4.00-5.60); RDW 16.9 % (11.9-15.9); WHITE BLOOD COUNT 9.6 K/mm3 (4.0-10.0)
--- NOTE | 2018-07-18 09:05 | PN ---
Progress Note, Physician Chief Complaint: sob - Current Medication List Current Medications: Active Medications Acetaminophen (Tylenol -) 650 mg PO Q4H PRN PRN Reason: PAIN LEVEL 6-10 Last Admin: 07/14/18 17:24 Dose: 650 mg Atorvastatin Calcium (Lipitor -) 40 mg PO HS [facility] Last Admin: 07/17/18 22:29 Dose: 40 mg Budesonide/Formoterol Fumarate (Symbicort 160/4.5mcg -) 2 puff IH BID [facility] Last Admin: 07/17/18 22:30 Dose: 2 puff Carvedilol (Coreg -) 3.125 mg PO BID [facility] Last Admin: 07/17/18 22:29 Dose: 3.125 mg Cholecalciferol (Vitamin D3 -) 5,000 unit PO DAILY [facility] Last Admin: 07/17/18 10:06 Dose: 5,000 unit Febuxostat (Uloric -) 40 mg PO DAILY [facility] Last Admin: 07/17/18 10:06 Dose: 40 mg Argatroban 250,000 mcg/ Sodium (Chloride) 250 mls @ 1.2 mls/hr IVPB TITR [facility]; Protocol Last Admin: 07/17/18 21:45 Dose: 0.22 mcg/kg/min, 1.17 mls/hr Insulin Aspart (Novolog Vial Sliding Scale -) 1 vial SQ ACHS [facility]; Protocol Last Admin: 07/18/18 07:07 Dose: Not Given Olanzapine (Zyprexa -) 2.5 mg PO HS [facility] Last Admin: 07/17/18 22:29 Dose: 2.5 mg Polyethylene Glycol (Miralax (For Daily Use) -) 17 gm PO DAILY PRN PRN Reason: CONSTIPATION Last Admin: 07/11/18 10:26 Dose: 17 grams Sodium Bicarbonate (Sodium Bicarbonate -) 650 mg PO BID [facility] Last Admin: 07/17/18 22:29 Dose: 650 mg - Objective Vital Signs: Vital Signs Temperature 98.3 F 07/18/18 07:01 Pulse Rate 10 L 07/18/18 07:01 Respiratory Rate 20 07/18/18 07:01 Blood Pressure 94/69 07/18/18 07:01 O2 Sat by Pulse Oximetry (%) 100 07/17/18 20:55 Eyes: Yes: WNL, Conjunctiva Clear, EOM Intact HENT: Yes: WNL, Atraumatic, Normocephalic Neck: Yes: WNL, Supple, Trachea Midline Cardiovascular: Yes: WNL, Regular Rate and Rhythm Respiratory: Yes: WNL, Regular, CTA Bilaterally Gastrointestinal: Yes: WNL, Normal Bowel Sounds Genitourinary: Yes: WNL Musculoskeletal: Yes: WNL Extremities: Yes: WNL Edema: No Integumentary: Yes: WNL ...Motor Strength: WNL Psychiatric: Yes: WNL Labs: CBC, BMP 07/18/18 06:30 07/17/18 06:30 INR, PTT INR 1.42 (0.83-1.09) H 07/16/18 07:43 Fibrinogen 290.0 mg/dL (238-498) D 07/17/18 00:00 Problem List - Problems (1) ELLIOTT (acute kidney injury) Code(s): N17.9 - ACUTE KIDNEY FAILURE, UNSPECIFIED (2) Elevated transaminase level Code(s): R74.0 - NONSPEC ELEV OF LEVELS OF TRANSAMNS & LACTIC ACID DEHYDRGNSE (3) Hypotension Code(s): I95.9 - HYPOTENSION, UNSPECIFIED Qualifiers: Hypotension type: unspecified hypotension type Qualified Code(s): I95.9 - Hypotension, unspecified (4) Weakness Code(s): R53.1 - WEAKNESS (5) Acute on chronic renal insufficiency Code(s): N28.9 - DISORDER OF KIDNEY AND URETER, UNSPECIFIED; N18.9 - CHRONIC KIDNEY DISEASE, UNSPECIFIED (6) Anemia Code(s): D64.9 - ANEMIA, UNSPECIFIED Qualifiers: Anemia type: unspecified type Qualified Code(s): D64.9 - Anemia, unspecified (7) Atypical chest pain Code(s): R07.89 - OTHER CHEST PAIN (8) COPD (chronic obstructive pulmonary disease) Code(s): J44.9 - CHRONIC OBSTRUCTIVE PULMONARY DISEASE, UNSPECIFIED (9) Cardiac arrhythmia Code(s): I49.9 - CARDIAC ARRHYTHMIA, UNSPECIFIED (10) Chest wall pain Code(s): R07.89 - OTHER CHEST PAIN (11) Colonic adenoma Code(s): D12.6 - BENIGN NEOPLASM OF COLON, UNSPECIFIED (12) Coronary arteriosclerosis Code(s): I25.10 - ATHSCL HEART DISEASE OF [place] CORONARY ARTERY W/O ANG PCTRS (13) DVT prophylaxis Code(s): PRP5696 - (14) Diabetes mellitus type 2 in obese Code(s): E11.9 - TYPE 2 DIABETES MELLITUS WITHOUT COMPLICATIONS; E66.9 - OBESITY , UNSPECIFIED (15) Dilated bile duct Code(s): K83.8 - OTHER SPECIFIED DISEASES OF BILIARY TRACT (16) Diverticulosis large intestine w/o perforation or abscess w/bleeding Code(s): K57.31 - DVRTCLOS OF LG INT W/O PERFORATION OR ABSCESS W BLEEDING (17) Dyspnea Code(s): R06.00 - DYSPNEA, UNSPECIFIED Qualifiers: Dyspnea type: unspecified Qualified Code(s): R06.00 - Dyspnea, unspecified (18) Elevated d-dimer Code(s): R79.89 - OTHER SPECIFIED ABNORMAL FINDINGS OF BLOOD CHEMISTRY (19) Full code status Code(s): Z78.9 - OTHER SPECIFIED HEALTH STATUS (20) Gout Code(s): M10.9 - GOUT, UNSPECIFIED (21) Gout attack Code(s): M10.9 - GOUT, UNSPECIFIED (22) History of heart artery stent Code(s): Z95.5 - PRESENCE OF CORONARY ANGIOPLASTY IMPLANT AND GRAFT (23) Hyperkalemia Code(s): E87.5 - HYPERKALEMIA (24) Hyperlipidemia Code(s): E78.5 - HYPERLIPIDEMIA, UNSPECIFIED (25) Hypertension Code(s): I10 - ESSENTIAL (PRIMARY) HYPERTENSION (26) Hypervolemia Code(s): E87.70 - FLUID OVERLOAD, UNSPECIFIED Qualifiers: Hypervolemia type: unspecified Qualified Code(s): E87.70 - Fluid overload, unspecified (28) ICD (implantable cardioverter-defibrillator) in place Code(s): Z95.810 - PRESENCE OF AUTOMATIC (IMPLANTABLE) CARDIAC DEFIBRILLATOR (29) Ileus Code(s): K56.7 - ILEUS, UNSPECIFIED (30) Insomnia Code(s): G47.00 - INSOMNIA, UNSPECIFIED (31) Jaundice Code(s): R17 - UNSPECIFIED JAUNDICE (32) Knee effusion, left Code(s): M25.462 - EFFUSION, LEFT KNEE (33) Left arm numbness Code(s): R20.0 - ANESTHESIA OF SKIN (34) Left upper quadrant pain Code(s): R10.12 - LEFT UPPER QUADRANT PAIN (35) Myocardial infarct Code(s): I21.9 - ACUTE MYOCARDIAL INFARCTION, UNSPECIFIED (36) Neck muscle strain Code(s): S16.1XXA - STRAIN OF MUSCLE, FASCIA AND TENDON AT NECK LEVEL, INIT (37) Neck pain Code(s): M54.2 - CERVICALGIA (38) Pacemaker complications Code(s): T82.9XXA - UNSP COMP OF CARDIAC AND VASCULAR PROSTH DEV/GRFT, INIT (39) Polyarthritis Code(s): M13.0 - POLYARTHRITIS, UNSPECIFIED (40) Renal dysfunction Code(s): N28.9 - DISORDER OF KIDNEY AND URETER, UNSPECIFIED (41) Renal insufficiency Code(s): N28.9 - DISORDER OF KIDNEY AND URETER, UNSPECIFIED (42) Severe left ventricular systolic dysfunction Code(s): I51.9 - HEART DISEASE, UNSPECIFIED (43) Shortness of breath Code(s): R06.02 - SHORTNESS OF BREATH (44) Systolic CHF Code(s): I50.20 - UNSPECIFIED SYSTOLIC (CONGESTIVE) HEART FAILURE (45) Weight loss, unintentional Code(s): R63.4 - ABNORMAL WEIGHT LOSS Assessment/Plan - Problems (1) Acute on chronic systolic and diastolic heart failure, NYHA class 1 Assessment/Plan: Carvedilol reduced to 3.125 mg daily due to hypotension, ?change in mental status. ACEI, spironolactone held due to renal dysfunction. F/u BUN/Cr, electrolytes, daily wt, Is and Os. 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 (2) Weakness Code(s): R53.1 - WEAKNESS (3) Acute on chronic renal insufficiency Code(s): N28.9 - DISORDER OF KIDNEY AND URETER, UNSPECIFIED; N18.9 - CHRONIC KIDNEY DISEASE, UNSPECIFIED (4) COPD (chronic obstructive pulmonary disease) Code(s): J44.9 - CHRONIC OBSTRUCTIVE PULMONARY DISEASE, UNSPECIFIED (5) Gout Code(s): M10.9 - GOUT, UNSPECIFIED (6) History of heart artery stent Code(s): Z95.5 - PRESENCE OF CORONARY ANGIOPLASTY IMPLANT AND GRAFT (7) Hyperlipidemia Code(s): E78.5 - HYPERLIPIDEMIA, UNSPECIFIED (8) Hypertension Code(s): I10 - ESSENTIAL (PRIMARY) HYPERTENSION (9) ICD (implantable cardioverter-defibrillator) in place Code(s): Z95.810 - PRESENCE OF AUTOMATIC (IMPLANTABLE) CARDIAC DEFIBRILLATOR SOB wheezes d/c IVF cxr
[2018-07-18] MEDS ORDERED: PT OWN MED DRAWER 7, Y5N ONE (09:24)
[2018-07-18] MEDS: SODIUM BICARBONATE 650 MG TABLET PO SCH ×2 (09:26→22:21)
[2018-07-18] MEDS: BUDESONIDE/FORMETEROL FUMARATE 160/4.5 mcg INHALER IH SCH ×2 (09:26→22:28)
[2018-07-18] MEDS: CARVEDILOL 3.125 MG TABLET (FP) PO SCH ×2 (09:26→22:21)
[2018-07-18] MEDS: CHOLECALCIFEROL (VIT D3) 1,000 UNIT (25 MCG) TABLET PO SCH (09:26)
[2018-07-18] MEDS: FEBUXOSTAT 40 MG TAB PO SCH (09:26)
[2018-07-18 11:55] LABS: ALBUMIN 2.5 g/dl (3.4-5.0); BILIRUBIN,TOTAL 3.4 mg/dL (0.2-1); CREATININE 2.6 mg/dL (0.55-1.3); POTASSIUM 4.5 mmol/L (3.5-5.1); TOT PROT 5.3 g/dl (6.4-8.2)
[2018-07-18 12:05] LABS: BLOOD UREA NITROGEN 109.2 mg/dL (7-18)
--- NOTE | 2018-07-18 12:36 | PN ---
Progress Note (short form) - Note Progress Note: Patient seen in follow up. No new complaints, but seems drowsier today - ?Ativan used for placement of line yesterday. RIJ central line placed yesterday - Argatroban started last night. Inpatient Meds reviewed. Current Medications Acetaminophen (Tylenol -) 650 mg PO Q4H PRN PRN Reason: PAIN LEVEL 6-10 Last Admin: 07/14/18 17:24 Dose: 650 mg Atorvastatin Calcium (Lipitor -) 40 mg PO HS [facility] Last Admin: 07/17/18 22:29 Dose: 40 mg Budesonide/Formoterol Fumarate (Symbicort 160/4.5mcg -) 2 puff IH BID [facility] Last Admin: 07/18/18 09:26 Dose: 2 puff Carvedilol (Coreg -) 3.125 mg PO BID [facility] Last Admin: 07/18/18 09:26 Dose: 3.125 mg Cholecalciferol (Vitamin D3 -) 5,000 unit PO DAILY [facility] Last Admin: 07/18/18 09:26 Dose: 5,000 unit Febuxostat (Uloric -) 40 mg PO DAILY [facility] Last Admin: 07/18/18 09:26 Dose: 40 mg Argatroban 250,000 mcg/ Sodium (Chloride) 250 mls @ 1.2 mls/hr IVPB TITR [facility]; Protocol Last Titration: 07/18/18 11:00 Dose: 0.11 mcg/kg/min, 0.58 mls/hr Insulin Aspart (Novolog Vial Sliding Scale -) 1 vial SQ ACHS [facility]; Protocol Last Admin: 07/18/18 12:08 Dose: 2 units Olanzapine (Zyprexa -) 2.5 mg PO [facility] Last Admin: 07/17/18 22:29 Dose: 2.5 mg Polyethylene Glycol (Miralax (For Daily Use) -) 17 gm PO DAILY PRN PRN Reason: CONSTIPATION Last Admin: 07/11/18 10:26 Dose: 17 grams Sodium Bicarbonate (Sodium Bicarbonate -) 650 mg PO BID [facility] Last Admin: 07/18/18 09:26 Dose: 650 mg On Examination: Last Vital Signs Temp Pulse Resp BP Pulse Ox 98.3 F 89 18 152/66 100 07/18/18 09:20 07/18/18 09:20 07/18/18 09:20 07/18/18 09:20 07/17/18 20:55 General: In no acute distress, supine, in bed, restless, complaining about restraints. Extremities: No pallor or icterus. Chest: breathing comfortably Abdomen: Not distended,non-tender. Neuro: Alert, confused. Labs: CBC, BMP 07/18/18 06:30 07/18/18 10:12 Assessment. 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 Heparin stopped and on argatroban since last night - ongoing dose titration. No change in platelets - less likely that thsi is HIT, buit will continue non- heparin AC pedning results of APRIL. Lower extremity arterial dopplers (R) - unremarkable.
--- NOTE | 2018-07-18 13:51 | PN ---
Progress Note, Physician History of Present Illness: Pt seen and examined at bedside. He is still drowsy but more interactive than yesterday. - Current Medication List Current Medications: Active Medications Acetaminophen (Tylenol -) 650 mg PO Q4H PRN PRN Reason: PAIN LEVEL 6-10 Last Admin: 07/14/18 17:24 Dose: 650 mg Atorvastatin Calcium (Lipitor -) 40 mg PO HS [facility] Last Admin: 07/17/18 22:29 Dose: 40 mg Budesonide/Formoterol Fumarate (Symbicort 160/4.5mcg -) 2 puff IH BID [facility] Last Admin: 07/18/18 09:26 Dose: 2 puff Carvedilol (Coreg -) 3.125 mg PO BID [facility] Last Admin: 07/18/18 09:26 Dose: 3.125 mg Cholecalciferol (Vitamin D3 -) 5,000 unit PO DAILY [facility] Last Admin: 07/18/18 09:26 Dose: 5,000 unit Febuxostat (Uloric -) 40 mg PO DAILY [facility] Last Admin: 07/18/18 09:26 Dose: 40 mg Argatroban 250,000 mcg/ Sodium (Chloride) 250 mls @ 1.2 mls/hr IVPB TITR [facility]; Protocol Last Titration: 07/18/18 11:00 Dose: 0.11 mcg/kg/min, 0.58 mls/hr Insulin Aspart (Novolog Vial Sliding Scale -) 1 vial SQ ACHS [facility]; Protocol Last Admin: 07/18/18 12:08 Dose: 2 units Olanzapine (Zyprexa -) 2.5 mg PO HS [facility] Last Admin: 07/17/18 22:29 Dose: 2.5 mg Polyethylene Glycol (Miralax (For Daily Use) -) 17 gm PO DAILY PRN PRN Reason: CONSTIPATION Last Admin: 07/11/18 10:26 Dose: 17 grams Sodium Bicarbonate (Sodium Bicarbonate -) 650 mg PO BID [facility] Last Admin: 07/18/18 09:26 Dose: 650 mg - Objective Vital Signs: Vital Signs Temperature 98.6 F 07/18/18 13:20 Pulse Rate 88 07/18/18 13:20 Respiratory Rate 18 07/18/18 13:20 Blood Pressure 118/74 07/18/18 13:20 O2 Sat by Pulse Oximetry (%) 100 07/18/18 09:00 Constitutional: Yes: Calm Eyes: Yes: Conjunctiva Clear HENT: Yes: Atraumatic Cardiovascular: Yes: S1, S2 Respiratory: Yes: On Nasal O2 Gastrointestinal: Yes: Soft Genitourinary: Yes: Walters Present Musculoskeletal: Yes: Muscle Weakness Edema: Yes Edema: LLE: 1+, RLE: 1+ Neurological: Yes: Lethargy Labs: CBC, BMP 07/18/18 06:30 07/18/18 10:12 INR, PTT INR 1.42 (0.83-1.09) H 07/16/18 07:43 Fibrinogen 290.0 mg/dL (238-498) D 07/17/18 00:00 Problem List - Problems (1) CKD (chronic kidney disease) Code(s): N18.9 - CHRONIC KIDNEY DISEASE, UNSPECIFIED Assessment/Plan Current Medications Generic Name Dose Route Start Last Admin Trade Name Freq PRN Reason Stop Dose Admin Acetaminophen 650 mg 07/14/18 16:18 07/14/18 17:24 Tylenol - PO 650 mg Q4H PRN Administration PAIN LEVEL 6-10 Atorvastatin Calcium 40 mg 07/15/18 22:00 07/17/18 22:29 Lipitor - PO 40 mg HS [facility] Administration Budesonide/Formoterol Fumarate 2 puff 07/01/18 10:00 07/18/18 09:26 Symbicort 160/4.5mcg - IH 2 puff BID [facility] Administration Carvedilol 3.125 mg 07/09/18 22:15 07/18/18 09:26 Coreg - PO 3.125 mg BID [facility] Administration Cholecalciferol 5,000 unit 07/07/18 16:30 07/18/18 09:26 Vitamin D3 - PO 5,000 unit DAILY [facility] Administration Febuxostat 40 mg 07/01/18 12:00 07/18/18 09:26 Uloric - PO 40 mg DAILY [facility] Administration Argatroban 250,000 mcg/ Sodium 250 mls @ 1.2 mls/hr 07/16/18 21:45 07/18/18 11:00 Chloride IVPB 0.11 mcg/kg/min TITR [facility] 0.58 mls/hr Titration Protocol 0.225 MCG/KG/MIN Insulin Aspart 1 vial 07/01/18 07:00 07/18/18 12:08 Novolog Vial Sliding Scale - SQ 2 units ACHS [facility] Administration Protocol Olanzapine 2.5 mg 07/09/18 22:00 07/17/18 22:29 Zyprexa - PO 2.5 mg HS [facility] Administration Polyethylene Glycol 17 gm 07/10/18 13:04 07/11/18 10:26 Miralax (For Daily Use) - PO 17 grams DAILY PRN Administration CONSTIPATION Sodium Bicarbonate 650 mg 07/03/18 10:00 07/18/18 09:26 Sodium Bicarbonate - PO 650 mg BID [facility] Administration #ELLIOTT on CKD #Hypotension #Altered mental status #DM #Hypertension #CHF #metabolic acidosis with respiratory compensation 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
--- NOTE | 2018-07-18 14:05 | PN ---
Teaching Attending Note Name of Resident: Erich Ruiz ATTENDING PHYSICIAN STATEMENT I saw and evaluated the patient. I reviewed the resident's note and discussed the case with the resident. I agree with the resident's findings and plan as documented. SUBJECTIVE: Patient is lying in bed with no acute distress. OBJECTIVE: Vital Signs Temperature 98.6 F 07/18/18 13:20 Pulse Rate 88 07/18/18 13:20 Respiratory Rate 18 07/18/18 13:20 Blood Pressure 118/74 07/18/18 13:20 O2 Sat by Pulse Oximetry (%) 100 07/18/18 09:00 GENERAL: The patient is awake, but continues to be confused , in no acute distress. HEAD: Normal with no signs of trauma. EYES: PERRL, extraocular movements intact, sclera anicteric, conjunctiva clear. ENT: Ears normal, oropharynx clear without exudates, moist mucous membranes. NECK: Trachea midline, full range of motion, supple. LUNGS: Breath sounds equal, clear to auscultation bilaterally, no wheezes, no crackles, no accessory muscle use. HEART: Regular rate and rhythm, S1, S2 without murmur, rub or gallop. ABDOMEN: Soft, nontender, nondistended, normoactive bowel sounds, ecchymosis around the umbilical cord is improving. EXTREMITIES: 2+ pulses, cool to touch, L>R, edema of LLE , with purple discoloration the 1st 3 toes improving and with right foot toes discoloration improving.. NEUROLOGICAL: Cranial nerves II through XII grossly intact. Normal speech, gait not observed. PSYCH: better today, answers to questions SKIN: Warm, dry, normal turgor, no rashes or lesions noted ABG Results ABG pH 7.43 (7.35-7.45) 07/02/18 15:55 ABG pCO2 at Pt Temp 27.8 mmHg (35-45) L 07/02/18 15:55 ABG pO2 at Pt Temp 92.8 mmHg (80-105) 07/02/18 15:55 ABG HCO3 18.1 mmol/L (22-27) L 07/02/18 15:55 ABG O2 Sat (Measured) 97.1 % (95-98) 07/02/18 15:55 ABG O2 Content 16.9 % vol (15-22) 07/02/18 15:55 ABG Base Excess -4.5 meq/l (-2-2) L 07/02/18 15:55 Current Medications Generic Name Dose Route Start Last Admin Trade Name Mariela PRN Reason Stop Dose Admin Acetaminophen 650 mg 07/14/18 16:18 07/14/18 17:24 Tylenol - PO 650 mg Q4H PRN Administration PAIN LEVEL 6-10 Atorvastatin Calcium 40 mg 07/15/18 22:00 07/17/18 22:29 Lipitor - PO 40 mg HS CLIVE Administration Budesonide/Formoterol Fumarate 2 puff 07/01/18 10:00 07/18/18 09:26 Symbicort 160/4.5mcg - IH 2 puff BID CLIVE Administration Carvedilol 3.125 mg 07/09/18 22:15 07/18/18 09:26 Coreg - PO 3.125 mg BID CLIVE Administration Cholecalciferol 5,000 unit 07/07/18 16:30 07/18/18 09:26 Vitamin D3 - PO 5,000 unit DAILY CLIVE Administration Febuxostat 40 mg 07/01/18 12:00 07/18/18 09:26 Uloric - PO 40 mg DAILY CLIVE Administration Argatroban 250,000 mcg/ Sodium 250 mls @ 1.2 mls/hr 07/16/18 21:45 07/18/18 11:00 Chloride IVPB 0.11 mcg/kg/min TITR CLIVE 0.58 mls/hr Titration Protocol 0.225 MCG/KG/MIN Insulin Aspart 1 vial 07/01/18 07:00 07/18/18 12:08 Novolog Vial Sliding Scale - SQ 2 units ACHS CLIVE Administration Protocol Olanzapine 2.5 mg 07/09/18 22:00 07/17/18 22:29 Zyprexa - PO 2.5 mg HS CLIVE Administration Polyethylene Glycol 17 gm 07/10/18 13:04 07/11/18 10:26 Miralax (For Daily Use) - PO 17 grams DAILY PRN Administration CONSTIPATION Sodium Bicarbonate 650 mg 07/03/18 10:00 07/18/18 09:26 Sodium Bicarbonate - PO 650 mg BID CLIVE Administration Home Medications Medication Instructions Recorded Aspirin [ASA -] 81 mg PO DAILY 01/02/17 Cholecalciferol (Vitamin D3) 5,000 unit PO WEEKLY 01/02/17 [Vitamin D -] Febuxostat [Uloric] 40 mg PO DAILY 01/02/17 Gabapentin 300 mg PO DAILY 01/02/17 Glimepiride [Amaryl] 2 mg PO DAILY 01/02/17 Lipitor 10 mg PO HS 01/02/17 Carvedilol [Coreg -] 3.125 mg PO BID 06/17/18 Budesonide/Formeterol Fumarate 2 puff IH BID #1 inhaler 06/21/18 [SYMBICORT 160/4.5mcg -] ASSESSMENT AND PLAN: Patient is a 77yo male with PMHx of HTN, HLP, systolic CHF, COPD, CKD, CAD s/p stenting, [place], ICD, gout, DM, presented with general weakness and change of mental status. #Acute discoloration of lower extremity improving : off heparin now, due to HIT2 positive, On Argatroban drip now as per hem/onc. continue to monitor pt/ ptt /inr and continue to monitor the patient. #Acute encephalopathy improved: multifactorial; dementia, volume depletion, medications, and uremia. Mental status is improving, On zyprexa continue # Petechiae and ecchymosis: with elevated PT and PTT. could be multifactorial, mixing study results noted. repeat Fibrinogen noted. no evidence of circulating anticoagulant, No evidence of Lupus anticoagulant . will continue to monitor. # ELLIOTT on CKD: cont bicarb , improving on gentle iv fluid, dr willis on the case , if does not improve possible HD # Transaminitis: improving. No need for rifaximin and lactulose as per GI. # Mild hypotension:due to volume depletion # H/o systolic CHF: hold diuresis in setting of volume depletion. cont coreg, hold for hypotension # Euthyroid sick syndrome: repeat as out pt # DM: cont SSI # thrombocytopenia: positive for hit antibodies will require rehab [place]. patient is tolerating diet well. Laboratory Tests 06/16/18 06/16/18 06/16/18 16:31 18:00 19:42 Plt Count INR BUN Creatinine 2.7 H Random Glucose Uric Acid Phosphorus Magnesium Total Bilirubin 1.4 H AST ALT Liver Fibrosis Score Liver Steatosis Score Troponin I 0.03 B-Natriuretic Peptide 97449.4 H TSH 4.14 H Free T4 1.27 H Total T3 Pending CSF IgG Interpretation Stool Occult Blood Total Protein (ADRIENNE) Albumin (ADRIENNE) Albumin/Globulin (ADRIENNE) Etumk-6-Nosmqjyag ADRIENNE Emlbi-2-Bsfwwqnhx ADRIENNE Gamma Globulins (ADRIENNE) ADRIENNE M-[employer] IEP IgG IEP IgA IEP IgM HERB Screen c-ANCA Proteinase 3 (PR3) p-ANCA Atypical p-ANCA Myeloperoxidase Ab Heparin-Ind Plt Ab Scrn RPR Titer Hepatitis A IgM Ab Hep Bs Antigen Hep Bs Antibody, Quant Hep B Core IgM Ab Hepatitis C Antibody 06/17/18 06/30/18 06/30/18 05:30 21:30 21:30 Plt Count INR 1.64 H BUN Creatinine 2.5 H Random Glucose Uric Acid Phosphorus Magnesium Total Bilirubin 1.6 H 1.7 H AST 152 H ALT 292 H Liver Fibrosis Score Liver Steatosis Score Troponin I 0.04 B-Natriuretic Peptide TSH Free T4 Total T3 CSF IgG Interpretation Stool Occult Blood Total Protein (ADRIENNE) Albumin (ADRIENNE) Albumin/Globulin (ADRIENNE) Befjy-0-Nbgnlsxvm ADRIENNE Tqqsp-4-Dicsaajlv ADRIENNE Gamma Globulins (ADRIENNE) ADRIENNE M-[employer] IEP IgG IEP IgA IEP IgM HERB Screen c-ANCA Proteinase 3 (PR3) p-ANCA Atypical p-ANCA Myeloperoxidase Ab Heparin-Ind Plt Ab Scrn RPR Titer Hepatitis A IgM Ab Hep Bs Antigen Hep Bs Antibody, Quant Hep B Core IgM Ab Hepatitis C Antibody 06/30/18 07/01/18 07/01/18 21:30 07:35 07:35 Plt Count INR BUN 88 H Creatinine 2.6 H Random Glucose 122 H Uric Acid 13.1 H* Phosphorus 5.5 H Magnesium 2.8 H Total Bilirubin 2.2 H AST 134 H ALT 272 H Liver Fibrosis Score Liver Steatosis Score Troponin I B-Natriuretic Peptide 29309.4 H TSH 5.07 H D Free T4 Total T3 CSF IgG Interpretation Stool Occult Blood Total Protein (ADRIENNE) Albumin (ADRIENNE) Albumin/Globulin (ADRIENNE) Bxisz-5-Sviftzfal ADRIENNE Dgyfv-8-Qdtbdfjpa ADRI[place]NE Gamma Globulins (ADRIENNE) ADRIENNE M[employer] IEP IgG IEP IgA IEP IgM HERB Screen c-ANCA Proteinase 3 (PR3) p-ANCA Atypical p-ANCA Myeloperoxidase Ab Heparin-Ind Plt Ab Scrn RPR Titer Hepatitis A IgM Ab Negative Hep Bs Antigen Negative Hep Bs Antibody, Quant Hep B Core IgM Ab Negative Hepatitis C Antibody 0.1 07/01/18 07/03/18 07/07/18 14:30 08:50 06:30 Plt Count INR BUN Creatinine Random Glucose Uric Acid Phosphorus Magnesium Total Bilirubin AST ALT 173 H Liver Fibrosis Score Liver Steatosis Score Troponin I B-Natriuretic Peptide TSH Free T4 Total T3 CSF IgG Interpretation Stool Occult Blood Total Protein (ADRIENNE) Albumin (ADRIENNE) Albumin/Globulin (ADRIENNE) Urvib-7-Pirormoki ADRIENNE Tfwqm-8-Kkzfeiwof ADRIENNE Gamma Globulins (ADRIENNE) ADRIENNE M[employer] IEP IgG IEP IgA IEP IgM HERB Screen Negative c-ANCA <1:20 Proteinase 3 (PR3) <3.5 p-ANCA <1:20 Atypical p-ANCA <1:20 Myeloperoxidase Ab <9.0 Heparin-Ind Plt Ab Scrn RPR Titer Nonreactive Hepatitis A IgM Ab Hep Bs Antigen Hep Bs Antibody, Quant Hep B Core IgM Ab Hepatitis C Antibody 07/08/18 07/08/18 07/09/18 07:54 09:30 10:05 Plt Count 147 INR BUN Creatinine Random Glucose Uric Acid Phosphorus Magnesium Total Bilirubin AST ALT Liver Fibrosis Score Liver Steatosis Score Troponin I B-Natriuretic Peptide TSH Free T4 Total T3 CSF IgG Interpretation Stool Occult Blood Total Protein (ADRIENNE) 6.4 Albumin (ADRIENNE) 3.4 Albumin/Globulin (ADRIENNE) 1.2 Gvxvm-3-Uzqykuthw ADRIENNE 0.2 Lwxuc-7-Dmosiiulm ADRIENNE 0.6 Gamma Globulins (ADRIENNE) 1.3 ADRIENNE M-[employer]aim[place] Not observed IEP IgG 1262 IEP IgA 248 IEP IgM 119 HERB Screen c-ANCA Proteinase 3 (PR3) p-ANCA Atypical p-ANCA Myeloperoxidase Ab Heparin-Ind Plt Ab Scrn RPR Titer Hepatitis A IgM Ab Hep Bs Antigen Hep Bs Antibody, Quant 522.0 Hep B Core IgM Ab Hepatitis C Antibody 07/10/18 07/11/18 07/12/18 11:30 06:00 06:30 Plt Count 132 L 113 L 108 L INR BUN Creatinine Random Glucose Uric Acid Phosphorus Magnesium Total Bilirubin AST ALT Liver Fibrosis Score Liver Steatosis Score Troponin I B-Natriuretic Peptide TSH Free T4 Total T3 CSF IgG Interpretation Stool Occult Blood Total Protein (ADRIENNE) Albumin (ADRIENNE) Albumin/Globulin (ADRIENNE) Ggusf-6-Evznqpnlq ADRIENNE Bmjzt-5-Zyjvuvwbi ADRIENNE Gamma Globulins (ADRIENNE) ADRIENNE M-[employer] IEP IgG IEP IgA IEP IgM HERB Screen c-ANCA Proteinase 3 (PR3) p-ANCA Atypical p-ANCA Myeloperoxidase Ab Heparin-Ind Plt Ab Scrn RPR Titer Hepatitis A IgM Ab Hep Bs Antigen Hep Bs Antibody, Quant Hep B Core IgM Ab Hepatitis C Antibody 07/13/18 07/13/18 07/13/18 08:15 08:55 08:55 Plt Count 82 L D INR BUN Creatinine Random Glucose Uric Acid Phosphorus Magnesium Total Bilirubin AST ALT Liver Fibrosis Score 0.84 H Liver Steatosis Score 0.72 H Troponin I B-Natriuretic Peptide TSH Free T4 Total T3 CSF IgG Interpretation Stool Occult Blood Total Protein (ADRIENNE) Albumin (ADRIENNE) Albumin/Globulin (ADRIENNE) Jcexp-1-Wtquomqku ADRIENNE Ozrjd-0-Ncchtijhy ADRIENNE Gamma Globulins (ADRIENNE) ADRIENNE M[employer] IEP IgG IEP IgA IEP IgM HERB Screen c-ANCA Proteinase 3 (PR3) p-ANCA Atypical p-ANCA Myeloperoxidase Ab Heparin-Ind Plt Ab Scrn 1.847 H RPR Titer Hepatitis A IgM Ab Hep Bs Antigen Hep Bs Antibody, Quant Hep B Core IgM Ab Hepatitis C Antibody 07/14/18 07/15/18 07/15/18 08:15 09:50 17:30 Plt Count 83 L 90 L INR BUN Creatinine Random Glucose Uric Acid Phosphorus Magnesium Total Bilirubin AST ALT Liver Fibrosis Score Liver Steatosis Score Troponin I B-Natriuretic Peptide TSH Free T4 Total T3 CSF IgG Interpretation Stool Occult Blood Negative Total Protein (ADRIENNE) Albumin (ADRIENNE) Albumin/Globulin (ADRIENNE) Fylmo-2-Xzormqazr ADRIENNE Vvdrt-0-Dusftjvmc ADRIENNE Gamma Globulins (ADRIENNE) ADRIENNE M-[employer] IEP IgG IEP IgA IEP IgM HERB Screen c-ANCA Proteinase 3 (PR3) p-ANCA Atypical p-ANCA Myeloperoxidase Ab Heparin-Ind Plt Ab Scrn RPR Titer Hepatitis A IgM Ab Hep Bs Antigen Hep Bs Antibody, Quant Hep B Core IgM Ab Hepatitis C Antibody 07/16/18 07:43 Plt Count 82 L INR BUN Creatinine Random Glucose Uric Acid Phosphorus Magnesium Total Bilirubin AST ALT Liver Fibrosis Score Liver Steatosis Score Troponin I B-Natriuretic Peptide TSH Free T4 Total T3 CSF IgG Interpretation Stool Occult Blood Total Protein (ADRIENNE) Albumin (ADRIENNE) Albumin/Globulin (ADRIENNE) Ogfyq-6-Ecuexvppm ADRIENNE Hhauq-3-Bxtmgfepc ADRIENNE Gamma Globulins (ADRIENNE) ADRIENNE M[employer] IEP IgG IEP IgA IEP IgM HERB Screen c-ANCA Proteinase 3 (PR3) p-ANCA Atypical p-ANCA Myeloperoxidase Ab Heparin-Ind Plt Ab Scrn RPR Titer Hepatitis A IgM Ab Hep Bs Antigen Hep Bs Antibody, Quant Hep B Core IgM Ab Hepatitis C Antibody
[2018-07-18] MEDS: ARGATROBAN - 250,000 MCG in SODIUM CHLORIDE 247.5 ML IVPB SCH (21:56)
[2018-07-18] MEDS: ATORVASTATIN CA 40 MG TABLET (FP) PO SCH (22:21)
[2018-07-18] MEDS: OLANZapine 2.5 MG TABLET PO SCH (22:21)
[2018-07-18 23:29] LABS: HEMATOCRIT 38.3 % (35.4-49); MCHC 31.4 g/dl (32.0-35.9); MEAN CELL VOLUME 92.6 fl (80-96); MEAN PLT VOLUME 9.2 fl (7.5-11.1); RBC 4.14 M/mm3 (4.00-5.60); WHITE BLOOD COUNT 8.6 K/mm3 (4.0-10.0)
[2018-07-18 23:48] LABS: INR 2.31 (0.83-1.09); PROTHROMBIN TIME (PATIENT) 27.5 SEC (9.7-13.0)
[2018-07-18 23:53] LABS: PLATELET COUNT 50 K/MM3 (134-434)
[2018-07-19] MEDS: INSULIN SLIDING SCALE (NOVOLOG) 1 VIAL SQ SCH ×4 (07:07→22:10)
[2018-07-19 07:17] LABS: HEMATOCRIT 36.5 % (35.4-49); HEMOGLOBIN 11.7 GM/dL (11.7-16.9); MCH 29.3 pg (25.7-33.7); MEAN CELL VOLUME 91.5 fl (80-96); MEAN PLT VOLUME 9.7 fl (7.5-11.1); PLATELET COUNT 84 K/MM3 (134-434); RBC 3.99 M/mm3 (4.00-5.60); RDW 17.2 % (11.9-15.9); WHITE BLOOD COUNT 8.9 K/mm3 (4.0-10.0)
--- NOTE | 2018-07-19 09:18 | PN ---
Progress Note, Physician Chief Complaint: sob History of Present Illness: The patient is a 77YOM with a PMH of HTN, HLD, CKD, CAD s/p stents, NE s/p defibrillator, gout, COPD, hypothyroidism, and CHF who presents to the ER sent in by Dr. Connolly with generalized weakness, poor appetite, and after becoming hypotensive while in his office. Patient has had two recent admissions for dyspnea on exertion to rule out PE in this ED. 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 Denies fever, chills, cp, N/V/C/D or urinary symptoms. Allergies: NKDA Social Hx: Former smoker. Denies drug or alcohol use. PCP: Dr. Holden Renal: Dr. Yane Connolly PMH PMH of NE (?x 2), severe systolic LV dsyfunction with ICD placed ?2 yrs ago, HTN , HLD, CAD s/p stents, renal dysfunction, COPD (quit cigarettes 10 yrs ago) unintentional weight loss, per family, and gout who presents to the ER with shortness of breath. He was recently discharged from [facility] after being admitted for ?"small NE and levated troponin." (per pt, he was there for two nights). - Current Medication List Current Medications: Active Medications Acetaminophen (Tylenol -) 650 mg PO Q4H PRN PRN Reason: PAIN LEVEL 6-10 Last Admin: 07/14/18 17:24 Dose: 650 mg Atorvastatin Calcium (Lipitor -) 40 mg PO HS [facility] Last Admin: 07/18/18 22:21 Dose: 40 mg Budesonide/Formoterol Fumarate (Symbicort 160/4.5mcg -) 2 puff IH BID [facility] Last Admin: 07/18/18 22:28 Dose: 2 puff Carvedilol (Coreg -) 3.125 mg PO BID [facility] Last Admin: 07/18/18 22:21 Dose: 3.125 mg Cholecalciferol (Vitamin D3 -) 5,000 unit PO DAILY [facility] Last Admin: 07/18/18 09:26 Dose: 5,000 unit Febuxostat (Uloric -) 40 mg PO DAILY [facility] Last Admin: 07/18/18 09:26 Dose: 40 mg Argatroban 250,000 mcg/ Sodium (Chloride) 250 mls @ 1.2 mls/hr IVPB TITR [facility]; Protocol Last Admin: 07/18/18 21:56 Dose: Not Given Insulin Aspart (Novolog Vial Sliding Scale -) 1 vial SQ ACHS [facility]; Protocol Last Admin: 07/19/18 07:07 Dose: Not Given Olanzapine (Zyprexa -) 2.5 mg PO HS [facility] Last Admin: 07/18/18 22:21 Dose: 2.5 mg Polyethylene Glycol (Miralax (For Daily Use) -) 17 gm PO DAILY PRN PRN Reason: CONSTIPATION Last Admin: 07/11/18 10:26 Dose: 17 grams Sodium Bicarbonate (Sodium Bicarbonate -) 650 mg PO BID [facility] Last Admin: 07/18/18 22:21 Dose: 650 mg - Objective Vital Signs: Vital Signs Temperature 97.6 F 07/19/18 06:00 Pulse Rate 92 H 07/19/18 06:00 Respiratory Rate 20 07/19/18 06:00 Blood Pressure 86/60 L 07/19/18 06:00 O2 Sat by Pulse Oximetry (%) 100 07/18/18 21:00 Eyes: Yes: WNL, Conjunctiva Clear, EOM Intact HENT: Yes: WNL, Atraumatic, Normocephalic Neck: Yes: WNL, Supple, Trachea Midline Cardiovascular: Yes: WNL, Regular Rate and Rhythm Respiratory: Yes: WNL, Regular, CTA Bilaterally Gastrointestinal: Yes: WNL, Normal Bowel Sounds Genitourinary: Yes: WNL Musculoskeletal: Yes: WNL Extremities: Yes: WNL Edema: No Integumentary: Yes: WNL ...Motor Strength: WNL Psychiatric: Yes: WNL Labs: CBC, BMP 07/19/18 06:00 07/18/18 10:12 INR, PTT INR 2.31 (0.83-1.09) H 07/18/18 23:05 Fibrinogen 165.0 mg/dL (238-498) L D 07/18/18 23:05 Problem List - Problems (1) ELLIOTT (acute kidney injury) Code(s): N17.9 - ACUTE KIDNEY FAILURE, UNSPECIFIED (2) Elevated transaminase level Code(s): R74.0 - NONSPEC ELEV OF LEVELS OF TRANSAMNS & LACTIC ACID DEHYDRGNSE (3) Hypotension Code(s): I95.9 - HYPOTENSION, UNSPECIFIED Qualifiers: Hypotension type: unspecified hypotension type Qualified Code(s): I95.9 - Hypotension, unspecified (4) Weakness Code(s): R53.1 - WEAKNESS (5) Acute on chronic renal insufficiency Code(s): N28.9 - DISORDER OF KIDNEY AND URETER, UNSPECIFIED; N18.9 - CHRONIC KIDNEY DISEASE, UNSPECIFIED (6) Anemia Code(s): D64.9 - ANEMIA, UNSPECIFIED Qualifiers: Anemia type: unspecified type Qualified Code(s): D64.9 - Anemia, unspecified (7) Atypical chest pain Code(s): R07.89 - OTHER CHEST PAIN (8) COPD (chronic obstructive pulmonary disease) Code(s): J44.9 - CHRONIC OBSTRUCTIVE PULMONARY DISEASE, UNSPECIFIED (9) Cardiac arrhythmia Code(s): I49.9 - CARDIAC ARRHYTHMIA, UNSPECIFIED (10) Chest wall pain Code(s): R07.89 - OTHER CHEST PAIN (11) Colonic adenoma Code(s): D12.6 - BENIGN NEOPLASM OF COLON, UNSPECIFIED (12) Coronary arteriosclerosis Code(s): I25.10 - ATHSCL HEART DISEASE OF [place] CORONARY ARTERY W/O ANG PCTRS (13) DVT prophylaxis Code(s): [id number] - (14) Diabetes mellitus type 2 in obese Code(s): E11.9 - TYPE 2 DIABETES MELLITUS WITHOUT COMPLICATIONS; E66.9 - OBESITY , UNSPECIFIED (15) Dilated bile duct Code(s): K83.8 - OTHER SPECIFIED DISEASES OF BILIARY TRACT (16) Diverticulosis large intestine w/o perforation or abscess w/bleeding Code(s): K57.31 - DVRTCLOS OF LG INT W/O PERFORATION OR ABSCESS W BLEEDING (17) Dyspnea Code(s): R06.00 - DYSPNEA, UNSPECIFIED Qualifiers: Dyspnea type: unspecified Qualified Code(s): R06.00 - Dyspnea, unspecified (18) Elevated d-dimer Code(s): R79.89 - OTHER SPECIFIED ABNORMAL FINDINGS OF BLOOD CHEMISTRY (19) Full code status Code(s): Z78.9 - OTHER SPECIFIED HEALTH STATUS (20) Gout Code(s): M10.9 - GOUT, UNSPECIFIED (21) Gout attack Code(s): M10.9 - GOUT, UNSPECIFIED (22) History of heart artery stent Code(s): Z95.5 - PRESENCE OF CORONARY ANGIOPLASTY IMPLANT AND GRAFT (23) Hyperkalemia Code(s): E87.5 - HYPERKALEMIA (24) Hyperlipidemia Code(s): E78.5 - HYPERLIPIDEMIA, UNSPECIFIED (25) Hypertension Code(s): I10 - ESSENTIAL (PRIMARY) HYPERTENSION (26) Hypervolemia Code(s): E87.70 - FLUID OVERLOAD, UNSPECIFIED Qualifiers: Hypervolemia type: unspecified Qualified Code(s): E87.70 - Fluid overload, unspecified (28) ICD (implantable cardioverter-defibrillator) in place Code(s): Z95.810 - PRESENCE OF AUTOMATIC (IMPLANTABLE) CARDIAC DEFIBRILLATOR (29) Ileus Code(s): K56.7 - ILEUS, UNSPECIFIED (30) Insomnia Code(s): G47.00 - INSOMNIA, UNSPECIFIED (31) Jaundice Code(s): R17 - UNSPECIFIED JAUNDICE (32) Knee effusion, left Code(s): M25.462 - EFFUSION, LEFT KNEE (33) Left arm numbness Code(s): R20.0 - ANESTHESIA OF SKIN (34) Left upper quadrant pain Code(s): R10.12 - LEFT UPPER QUADRANT PAIN (35) Myocardial infarct Code(s): I21.9 - ACUTE MYOCARDIAL INFARCTION, UNSPECIFIED (36) Neck muscle strain Code(s): S16.1XXA - STRAIN OF MUSCLE, FASCIA AND TENDON AT NECK LEVEL, INIT (37) Neck pain Code(s): M54.2 - CERVICALGIA (38) Pacemaker complications Code(s): T82.9XXA - UNSP COMP OF CARDIAC AND VASCULAR PROSTH DEV/GRFT, INIT (39) Polyarthritis Code(s): M13.0 - POLYARTHRITIS, UNSPECIFIED (40) Renal dysfunction Code(s): N28.9 - DISORDER OF KIDNEY AND URETER, UNSPECIFIED (41) Renal insufficiency Code(s): N28.9 - DISORDER OF KIDNEY AND URETER, UNSPECIFIED (42) Severe left ventricular systolic dysfunction Code(s): I51.9 - HEART DISEASE, UNSPECIFIED (43) Shortness of breath Code(s): R06.02 - SHORTNESS OF BREATH (44) Systolic CHF Code(s): I50.20 - UNSPECIFIED SYSTOLIC (CONGESTIVE) HEART FAILURE (45) Weight loss, unintentional Code(s): R63.4 - ABNORMAL WEIGHT LOSS Assessment/Plan - Problems (1) Acute on chronic systolic and diastolic heart failure, NYHA class 1 Assessment/Plan: Carvedilol reduced to 3.125 mg daily due to hypotension, ?change in mental status. ACEI, spironolactone held due to renal dysfunction. F/u BUN/Cr, electrolytes, daily wt, Is and Os. 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 (2) Weakness Code(s): R53.1 - WEAKNESS (3) Acute on chronic renal insufficiency Code(s): N28.9 - DISORDER OF KIDNEY AND URETER, UNSPECIFIED; N18.9 - CHRONIC KIDNEY DISEASE, UNSPECIFIED (4) COPD (chronic obstructive pulmonary disease) Code(s): J44.9 - CHRONIC OBSTRUCTIVE PULMONARY DISEASE, UNSPECIFIED (5) Gout Code(s): M10.9 - GOUT, UNSPECIFIED (6) History of heart artery stent Code(s): Z95.5 - PRESENCE OF CORONARY ANGIOPLASTY IMPLANT AND GRAFT (7) Hyperlipidemia Code(s): E78.5 - HYPERLIPIDEMIA, UNSPECIFIED (8) Hypertension Code(s): I10 - ESSENTIAL (PRIMARY) HYPERTENSION (9) ICD (implantable cardioverter-defibrillator) in place Code(s): Z95.810 - PRESENCE OF AUTOMATIC (IMPLANTABLE) CARDIAC DEFIBRILLATOR SOB wheezes d/c IVF cxr
[2018-07-19] MEDS: BUDESONIDE/FORMETEROL FUMARATE 160/4.5 mcg INHALER IH SCH ×2 (11:58→22:11)
[2018-07-19] MEDS: FEBUXOSTAT 40 MG TAB PO SCH (11:59)
[2018-07-19] MEDS: SODIUM BICARBONATE 650 MG TABLET PO SCH ×2 (11:59→22:08)
[2018-07-19] MEDS: CHOLECALCIFEROL (VIT D3) 1,000 UNIT (25 MCG) TABLET PO SCH (11:59)
[2018-07-19] MEDS: CARVEDILOL 3.125 MG TABLET (FP) PO SCH ×2 (12:00→22:08)
--- NOTE | 2018-07-19 14:52 | PN ---
Progress Note (short form) - Note Progress Note: Renal follow up for ELLIOTT Pt seen and examined at the bedside awake, slow speech but answering questions tolerating diet when being fed making urine via dozier Vital Signs Temperature 98.9 F 07/19/18 10:00 Pulse Rate 83 07/19/18 10:00 Respiratory Rate 18 07/19/18 10:00 Blood Pressure 101/67 07/19/18 10:00 O2 Sat by Pulse Oximetry (%) 100 07/18/18 21:00 Intake & Output 07/16/18 07/17/18 07/18/18 07/19/18 23:59 23:59 23:59 23:59 Intake Total 1769 464 56 1.2 Output Total 1500 1200 450 Balance 269 -986 -394 1.2 Weight 89.386 kg 89.953 kg 89.584 kg 91.229 kg NAD, confused CTA, no rales soft NT/ND no LE edmea, clubbing or cyanosis no bladder distension CBC, BMP 07/19/18 06:00 07/18/18 10:12 77 year old gentleman with hx of CKD stage 3 (baseline Cr 1.8-2), CAD s/p PCI, CHF with very low LVEF, hyperlipidemia, hypertension, AICD placement, DM, COPD who presented from Dr. Connolly's office with hypotension and found to have increasing confusion and ELLIOTT. #ELLIOTT on CKD due to volume depletion vs. HRS vs. Cardio-renal syndrome vs. renal injury in setting of DIC #Hypotension #Altered mental status r/o dementia vs. other cause #DM #Hypertension #CHF #metabolic acidosis with respiratory compensation Renal function stable, no acute need for dialysis (no overt acidosis, hyperkalemia or volume overload) despite BUN being 100, do not suspect that mental status changes are due to uremia continue anticoagulation as per Heme for DIC Renal vein doppler showed no thrombosis oral intake as tolerated supportive care prognosis is guarded at this time Mikhail Ling DO
--- NOTE | 2018-07-19 16:09 | PN ---
Physical Exam: SUBJECTIVE: Patient seen and examined at bedside. Confused, sluggish in responses, no apparent acute complaints, transitioned to Argabotran d/t +HIT Ab. OBJECTIVE: Vital Signs Period Temp Pulse Resp BP Sys/Robbins Pulse Ox Last 24 Hr 97.6 F-98.9 F 83-96 18-20 86-109/60-69 100 GENERAL:AOX 1-2, NAD. In general confused/forgetful, fatigued, lethargic. HEAD: NCAT EYES: PERRLA, EOMI EARS, NOSE, THROAT: MMM LUNGS: CTAB HEART: RRR, no murmurs heard, defribilator in LUQ ABDOMEN: Soft, NTND, normoactive bowel sounds, no guarding, no rebound, no masses. large ring like purple ecchymosis in umbilical region along w/ petechia along abdomen (appears to be fading in color but spreading in surface area along abd), chest and legs, improving LOWER EXTREMITIES: 2+ pulses, warm, well-perfused. No calf tenderness. No peripheral edema. b/l foot/ankle swelling and erythema, TTP. dusky discoloration clearing, DP pulses are palpable NEUROLOGICAL: No focal deficits appreciated PSYCHIATRIC: Confused SKIN: Warm, dry, normal turgor, petechiae as above Laboratory Results - last 24 hr 07/13/18 07/18/18 07/18/18 20:20 06:30 17:48 WBC RBC Hgb Hct MCV MCH MCHC RDW Plt Count 78 L MPV Manual Slide Review Platelet Comment PT with INR INR PTT (Actin FS) Fibrinogen Factor V Leiden POC Glucometer 276 07/18/18 07/18/18 07/18/18 20:55 21:00 23:05 WBC 8.6 RBC 4.14 Hgb 12.0 Hct 38.3 MCV 92.6 MCH 29.0 MCHC 31.4 L RDW 17.0 H Plt Count 50 L D MPV 9.2 Manual Slide Review Reviewed Platelet Comment Dec PT with INR INR PTT (Actin FS) > 400.0 H Fibrinogen Factor V Leiden POC Glucometer 236 07/18/18 07/18/18 07/18/18 23:05 23:05 23:05 WBC RBC Hgb Hct MCV MCH MCHC RDW Plt Count MPV Manual Slide Review Platelet Comment PT with INR 27.50 H INR 2.31 H PTT (Actin FS) 149.5 H Fibrinogen 165.0 L D Factor V Leiden POC Glucometer 07/19/18 07/19/18 07/19/18 03:30 05:21 06:00 WBC 8.9 RBC 3.99 L Hgb 11.7 Hct 36.5 MCV 91.5 MCH 29.3 MCHC 32.0 RDW 17.2 H Plt Count 84 L D MPV 9.7 Manual Slide Review Y Platelet Comment PT with INR INR PTT (Actin FS) 111.0 H Fibrinogen Factor V Leiden POC Glucometer 193 07/19/18 07/19/18 06:00 12:28 WBC RBC Hgb Hct MCV MCH MCHC RDW Plt Count MPV Manual Slide Review Platelet Comment PT with INR INR PTT (Actin FS) 81.0 H Fibrinogen Factor V Leiden POC Glucometer 181 Active Medications Generic Name Dose Route Start Last Admin Trade Name Freq PRN Reason Stop Dose Admin Acetaminophen 650 mg 07/14/18 16:18 07/14/18 17:24 Tylenol - PO 650 mg Q4H PRN Administration PAIN LEVEL 6-10 Atorvastatin Calcium 40 mg 07/15/18 22:00 07/18/18 22:21 Lipitor - PO 40 mg HS [facility] Administration Budesonide/Formoterol Fumarate 2 puff 07/01/18 10:00 07/19/18 11:58 Symbicort 160/4.5mcg - IH Not Given BID [facility] Carvedilol 3.125 mg 07/09/18 22:15 07/19/18 12:00 Coreg - PO Not Given BID [facility] Cholecalciferol 5,000 unit 07/07/18 16:30 07/19/18 11:59 Vitamin D3 - PO Not Given DAILY [facility] Febuxostat 40 mg 07/01/18 12:00 07/19/18 11:59 Uloric - PO Not Given DAILY [facility] Argatroban 250,000 mcg/ Sodium 250 mls @ 1.2 mls/hr 07/16/18 21:45 07/18/18 21:56 Chloride IVPB Not Given TITR [facility] Protocol 0.225 MCG/KG/MIN Insulin Aspart 1 vial 07/01/18 07:00 07/19/18 12:44 Novolog Vial Sliding Scale - SQ 2 units ACHS [facility] Administration Protocol Olanzapine 2.5 mg 07/09/18 22:00 07/18/18 22:21 Zyprexa - PO 2.5 mg HS [facility] Administration Polyethylene Glycol 17 gm 07/10/18 13:04 07/11/18 10:26 Miralax (For Daily Use) - PO 17 grams DAILY PRN Administration CONSTIPATION Sodium Bicarbonate 650 mg 07/03/18 10:00 07/19/18 11:59 Sodium Bicarbonate - PO Not Given BID [facility] ASSESSMENT/PLAN: 77 y/o M PMH HTN, HLD, LV dysfunction/CHF, CKD 4, CAD s/p stents, CT s/p defribilator, gout, DM, COPD due to smoking history?, who presented from Dr. Hood office with Weakness, poor PO intake, hypotension and found to have increasing confusion and ELLIOTT. #? Metabolic encephalopathy vs suspected worsening dementia, poor PO intake. -Consulted Neurology, Tammy: suspects likely underlying Alzheimer vs frontotemporal dementia with superimposed metabolic encephalopathy with generalized weakness, poor cardiac status likely contributory as well. per neuro , no focality to suggest new cerebral ischemic event, no evidence of seizures, meningitis, etc -Dr. Connolly consulted -CT head w/o acute changes -MRI is not an option since has a PPM/defibrilator -encourage PO hydration, started on clinimix by nephro given his worsening dementia state and poor po intake -ammonia fluctuating but unlikely to be contributing to AMS, no need for lactulose, GI recs appreciated -cont to hold gabapentin to avoid worsening confusion, neuro recs appreciated -Vit B12, Folic acid elevated -ucx, RPR neg -psych consulted -c/w zyprexa per psych -family has decided for PEG. -IR consulted for PEG, will ideally need INR<1.5 and plt >100 -consignee consulted, on calorie count #new petechiae and abdominal echymosis w/ elevated INR 1.79 (not on AC) and thrombocytopenia - unclear etiology. plt have downtrended but remain stable in the 80s (baseline ~150-200). H/H remains stable at baseline. no obvious source of bleed. possibly 2/2 liver disease/injury and c/b vit K depletion 2/2 poor po intake/malabsorbtion. 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 nephro and heme recs appreciated, elevated BUN may be contributing but unclear at this time as levels of 100 may cause platelet dsfx but unclear if this is what is causing his bruising. Also noted w/ low fibrinogen, there may be component of mild chronic DIC? -heme/onc consult, Candelario -+HIT Ab, transitioned from heparin gtt to Argabotran -corrected retic index is low indicating inadequate marrow response -CT A/P reviewed above, No acute pathology within the abdomen or pelvis -LDH, haptoglobin nl -hold ASA and SQH -P and C ANCA, HERB neg -No evidence of Lupus anticoagulant -Mixing study: PT is elevated and PTT is nl, also Factor VII percentage is low. is this an autoimmune process causing deficiency???, will need to touch base w/ heme -ESR 2, CRP 2.3 # b/l foot/ankle swelling and erythema, TTP. L toes are cold dusky blue/purple color, DP pulses are palpable and heard on doppler - doesnt look infx or gout. may represent emboli 2/2 chronic DIC?, as discussed above b/l foot XR to r/o frx reviewed above duplex neg DVT arterial reviewd above, Decreased monophasic flow within left posterior tibial artery. will start Lipitor 40 HS vascular consult, Manolo torres prednisone as unlikely to be gout mechanical restraints #ELLIOTT on CKD stage4 2/2 volume depletion, baseline Cr is 1.8-2 - 2.9...2.8...2.6...3...2.8...3, poor po intake and was not receiving clinimix or IVF due to pulling his IVs -nephro consulted, Sushil PETE MM immuno w/u neg -FeUrea was 38.5% indicating slight tubular dysfunction -hold ACEi and diuretics for now -encourage PO hydration, started on clinimix by nephro given his worsening dementia state and poor po intake -c/w PO bicarbonate for metabolic acidosis #CHF with Severe LV dysfunction: not likely an acute issue -EKG was essentially unchanged since prior -cardio consult, Evy for optimization of HF meds, pt noted here w/ slightly low BP -carvedilol resumed at bid per cardio -hold ASA in setting of petechia and echymosis #Acute Transaminitis w/ elevated INR 1.79: likely 2/2 hepatic congestion 2/2 CHF w/ severe low EF, however component of ischemic injury may be present in setting of hypotension in the setting of volume depletion. The patient is not on any significant hepatotoxic medications. GI consulted, Dr. Camacho, and don' t think that he has hepatic encephalopathy or cirhosis given the lack of splenomegaly and normal liver size. 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 -will follow with Dr. Castaneda as an outpatient, for further w/u #DM: chronic -hold diabetic meds -ISS -BGM ACHS #CAD: chronic -hold ASA in setting of petechia and echymosis #FEN -encourage PO hydration, started on clinimix by nephro given his worsening dementia state and poor po intake -replete prn -diabetic/sodium diet #Prophylaxis -hold SQH tid w/ petechia -scd b/l #Dispo -med surg -pt has bed at [facility], however holding off on dc until medically optimized -family has decided for PEG. will need to optimize INR and plt Visit type - Emergency Visit Emergency Visit: No - New Patient This patient is new to me today: No - Critical Care Critical Care patient: No
--- NOTE | 2018-07-19 17:40 | PN ---
Teaching Attending Note Name of Resident: Basim Murillo ATTENDING PHYSICIAN STATEMENT I saw and evaluated the patient. I reviewed the resident's note and discussed the case with the resident. I agree with the resident's findings and plan as documented. SUBJECTIVE: Patient is improving OBJECTIVE: Vital Signs Temperature 98.7 F 07/19/18 15:04 Pulse Rate 84 07/19/18 15:04 Respiratory Rate 18 07/19/18 15:04 Blood Pressure 105/69 07/19/18 15:04 O2 Sat by Pulse Oximetry (%) 100 07/18/18 21:00 GENERAL: The patient is awake, but continues to be confused , in no acute distress. HEAD: Normal with no signs of trauma. EYES: PERRL, extraocular movements intact, sclera anicteric, conjunctiva clear. ENT: Ears normal, oropharynx clear without exudates, moist mucous membranes. NECK: Trachea midline, full range of motion, supple. LUNGS: Breath sounds equal, clear to auscultation bilaterally, no wheezes, no crackles, no accessory muscle use. HEART: Regular rate and rhythm, S1, S2 without murmur, rub or gallop. ABDOMEN: Soft, NT,ND, normoactive bowel sounds, ecchymosis around the umbilical cord is improving. EXTREMITIES: 2+ pulses, cool to touch, L>R, edema of LLE , with purple discoloration of both feet. NEUROLOGICAL: Cranial nerves II through XII grossly intact. Normal speech, gait not observed. PSYCH: better today, answers to questions SKIN: Warm, dry, normal turgor, no rashes or lesions noted CBCD WBC 8.9 K/mm3 (4.0-10.0) 07/19/18 06:00 RBC 3.99 M/mm3 (4.00-5.60) L 07/19/18 06:00 Hgb 11.7 GM/dL (11.7-16.9) 07/19/18 06:00 Hct 36.5 % (35.4-49) 07/19/18 06:00 MCV 91.5 fl (80-96) 07/19/18 06:00 MCHC 32.0 g/dl (32.0-35.9) 07/19/18 06:00 RDW 17.2 % (11.9-15.9) H 07/19/18 06:00 Plt Count 84 K/MM3 (134-434) L D 07/19/18 06:00 MPV 9.7 fl (7.5-11.1) 07/19/18 06:00 CMP Sodium 140 mmol/L (136-145) 07/18/18 10:12 Potassium 4.5 mmol/L (3.5-5.1) 07/18/18 10:12 Chloride 109 mmol/L (98-107) H 07/18/18 10:12 Carbon Dioxide 21 mmol/L (21-32) 07/18/18 10:12 Anion Gap 10 MMOL/L (8-16) 07/18/18 10:12 BUN 109.2 mg/dL (7-18) H* 07/18/18 10:12 Creatinine 2.6 mg/dL (0.55-1.3) H 07/18/18 10:12 Glucose 98 mg/dL (65-99) 07/13/18 08:55 Random Glucose 191 mg/dL (74-106) H 07/18/18 10:12 Calcium 8.0 mg/dL (8.5-10.1) L 07/18/18 10:12 Total Bilirubin 3.4 mg/dL (0.2-1) H 07/18/18 10:12 AST 37 U/L (15-37) 07/18/18 10:12 ALT 44 U/L (13-61) 07/18/18 10:12 Alkaline Phosphatase 76 U/L (45-117) 07/18/18 10:12 Total Protein 5.3 g/dl (6.4-8.2) L 07/18/18 10:12 Albumin 2.5 g/dl (3.4-5.0) L 07/18/18 10:12 CARDIAC ENZYMES Creatine Kinase 160 U/L (26-308) 06/30/18 21:30 Troponin I 0.02 ng/ml (0.00-0.05) 07/01/18 11:25 Current Medications Generic Name Dose Route Start Last Admin Trade Name Freq PRN Reason Stop Dose Admin Acetaminophen 650 mg 07/14/18 16:18 07/14/18 17:24 Tylenol - PO 650 mg Q4H PRN Administration PAIN LEVEL 6-10 Atorvastatin Calcium 40 mg 07/15/18 22:00 07/18/18 22:21 Lipitor - PO 40 mg HS [facility] Administration Budesonide/Formoterol Fumarate 2 puff 07/01/18 10:00 07/19/18 11:58 Symbicort 160/4.5mcg - IH Not Given BID [facility] Carvedilol 3.125 mg 07/09/18 22:15 07/19/18 12:00 Coreg - PO Not Given BID [facility] Cholecalciferol 5,000 unit 07/07/18 16:30 07/19/18 11:59 Vitamin D3 - PO Not Given DAILY [facility] Febuxostat 40 mg 07/01/18 12:00 07/19/18 11:59 Uloric - PO Not Given DAILY [facility] Argatroban 250,000 mcg/ Sodium 250 mls @ 1.2 mls/hr 07/16/18 21:45 07/18/18 21:56 Chloride IVPB Not Given TITR [facility] Protocol 0.225 MCG/KG/MIN Insulin Aspart 1 vial 07/01/18 07:00 07/19/18 12:44 Novolog Vial Sliding Scale - SQ 2 units ACHS [facility] Administration Protocol Olanzapine 2.5 mg 07/09/18 22:00 07/18/18 22:21 Zyprexa - PO 2.5 mg HS [facility] Administration Polyethylene Glycol 17 gm 07/10/18 13:04 07/11/18 10:26 Miralax (For Daily Use) - PO 17 grams DAILY PRN Administration CONSTIPATION Sodium Bicarbonate 650 mg 07/03/18 10:00 07/19/18 11:59 Sodium Bicarbonate - PO Not Given BID [facility] Home Medications Medication Instructions Recorded Aspirin [ASA -] 81 mg PO DAILY 01/02/17 Cholecalciferol (Vitamin D3) 5,000 unit PO WEEKLY 01/02/17 [Vitamin D -] Febuxostat [Uloric] 40 mg PO DAILY 01/02/17 Gabapentin 300 mg PO DAILY 01/02/17 Glimepiride [Amaryl] 2 mg PO DAILY 01/02/17 Lipitor 10 mg PO HS 01/02/17 Carvedilol [Coreg -] 3.125 mg PO BID 06/17/18 Budesonide/Formeterol Fumarate 2 puff IH BID #1 inhaler 06/21/18 [SYMBICORT 160/4.5mcg -] ASSESSMENT AND PLAN: Patient is a 77yo male with PMHx of HTN, HLP, systolic CHF, COPD, CKD, CAD s/p stenting, [place], ICD, gout, DM, presented with general weakness and change of mental status. #Acute discoloration of lower extremity improving : off heparin now, due to HIT2 positive, continue Argatroban drip per hem/onc. # Petechiae and ecchymosis: with elevated PT and PTT. could be multifactorial, mixing study results noted. repeat Fibrinogen noted. no evidence of circulating anticoagulant, No evidence of Lupus anticoagulant . #Acute encephalopathy improving: multifactorial, on zyprexa continue . # ELLIOTT on CKD: with worsening creatinine level, will continue to monitor, cont bicarb ,dr willis on the case, if does not improve possible HD # Transaminitis: improving. No need for rifaximin and lactulose as per GI. # Mild hypotension:due to volume depletion # H/o systolic CHF: hold diuresis in setting of volume depletion. 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 patient is tolerating diet well. will continue to monitor
--- NOTE | 2018-07-19 19:53 | PN ---
Progress Note (short form) - Note Progress Note: Patient lorie nd examined Purplish discoloration of toes bilaterally---improved on the right Mildly confused Last Vital Signs Temp Pulse Resp BP Pulse Ox 98.7 F 84 18 105/69 100 07/19/18 15:04 07/19/18 15:04 07/19/18 15:04 07/19/18 15:04 07/18/18 21:00 Cor: RSR, No murmurs, No gallops Lungs: Clear to P&A Abd: Soft, Normal bowel sounds, No organomegaly Ext:No significant edema abdominal wall rash --ecchymosis, fading Abnormal Lab Results 07/18/18 07/18/18 07/18/18 21:00 23:05 23:05 RBC MCHC 31.4 L RDW 17.0 H Plt Count 50 L D PT with INR INR PTT (Actin FS) > 400.0 H Fibrinogen 165.0 L D 07/18/18 07/18/18 07/19/18 23:05 23:05 03:30 RBC MCHC RDW Plt Count PT with INR 27.50 H INR 2.31 H PTT (Actin FS) 149.5 H 111.0 H Fibrinogen 07/19/18 07/19/18 06:00 06:00 RBC 3.99 L MCHC RDW 17.2 H Plt Count 84 L D PT with INR INR PTT (Actin FS) 81.0 H Fibrinogen Home Medication List Medication Instructions Recorded Confirmed Type Aspirin [ASA -] 81 mg PO DAILY 01/02/17 07/02/18 History Cholecalciferol (Vitamin D3) 5,000 unit PO WEEKLY 01/02/17 07/02/18 History [Vitamin D -] Febuxostat [Uloric] 40 mg PO DAILY 01/02/17 07/02/18 History Gabapentin 300 mg PO DAILY 01/02/17 07/02/18 History Glimepiride [Amaryl] 2 mg PO DAILY 01/02/17 07/02/18 History Lipitor 10 mg PO HS 01/02/17 07/02/18 History Carvedilol [Coreg -] 3.125 mg PO BID 06/17/18 07/02/18 History Active Medications Generic Name Dose Route Start Last Admin Trade Name Freq PRN Reason Stop Dose Admin Acetaminophen 650 mg 07/14/18 16:18 07/14/18 17:24 Tylenol - PO 650 mg Q4H PRN Administration PAIN LEVEL 6-10 Atorvastatin Calcium 40 mg 07/15/18 22:00 07/18/18 22:21 Lipitor - PO 40 mg HS [facility] Administration Budesonide/Formoterol Fumarate 2 puff 07/01/18 10:00 07/19/18 11:58 Symbicort 160/4.5mcg - IH Not Given BID [facility] Carvedilol 3.125 mg 07/09/18 22:15 07/19/18 12:00 Coreg - PO Not Given BID [facility] Cholecalciferol 5,000 unit 07/07/18 16:30 07/19/18 11:59 Vitamin D3 - PO Not Given DAILY [facility] Febuxostat 40 mg 07/01/18 12:00 07/19/18 11:59 Uloric - PO Not Given DAILY [facility] Argatroban 250,000 mcg/ Sodium 250 mls @ 1.2 mls/hr 07/16/18 21:45 07/18/18 21:56 Chloride IVPB Not Given TITR [facility] Protocol 0.225 MCG/KG/MIN Insulin Aspart 1 vial 07/01/18 07:00 07/19/18 18:08 Novolog Vial Sliding Scale - SQ 4 units ACHS [facility] Administration Protocol Olanzapine 2.5 mg 07/09/18 22:00 07/18/18 22:21 Zyprexa - PO 2.5 mg HS [facility] Administration Polyethylene Glycol 17 gm 07/10/18 13:04 07/11/18 10:26 Miralax (For Daily Use) - PO 17 grams DAILY PRN Administration CONSTIPATION Sodium Bicarbonate 650 mg 07/03/18 10:00 07/19/18 11:59 Sodium Bicarbonate - PO Not Given BID [facility] A/P 77 y/o patient with ELLIOTT/CKD, DM, HTN,HLD, ? baseline dementia, pacemaker, now with purplish discoloration of toes bilaterally Thrombocytopenia ? low grade DIC vs ? congestive hepatopathy purplish discoloration of toes HIT 1.8 --- f/u APRIL switched to argatroban ---on 0.1ml/hr. Monitor PTT vascular f/u chf
[2018-07-19] MEDS ORDERED: PT OWN MED DRAWER 7, Y5N ONE (21:44)
[2018-07-19] MEDS: OLANZapine 2.5 MG TABLET PO SCH (22:08)
[2018-07-19] MEDS: ATORVASTATIN CA 40 MG TABLET (FP) PO SCH (22:08)
[2018-07-19] MEDS: ARGATROBAN - 250,000 MCG in SODIUM CHLORIDE 247.5 ML IVPB SCH (22:13)
[2018-07-20] MEDS: INSULIN SLIDING SCALE (NOVOLOG) 1 VIAL SQ SCH ×4 (06:43→21:34)
--- NOTE | 2018-07-20 07:29 | PN ---
Physical Exam: SUBJECTIVE: Patient seen and examined at bedside. no acute events overnight. 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 This AM pt pulled out IJ and was noted to be bleeding from IJ, bed sheet and pillow with fresh blood EBL ~10-20cc. pressure and dressing was applied to stop bleed, and 1:1 ordered as pt is at risk of harming himself. pt relatively alert and at baseline, responding to voice and following commands denies cp, sob, fever, n/v/d. pt noted to be pulling at IVs and other equipment. Pt cont to take his clothes off and lays in bed naked. In general confused/forgetful, fatigued, lethargic, however more alert today. Family wants PEG OBJECTIVE: Vital Signs Period Temp Pulse Resp BP Sys/Robbins Pulse Ox Last 24 Hr 94.2 F-98.9 F 83-88 18-20 90-105/53-70 GENERAL:AOX 1-2, NAD. In general confused/forgetful, fatigued, lethargic, however more alert today. cont to take his clothes off and lays in bed naked. bleeding from neck, IJ removed by pt HEAD: NCAT EYES: PERRLA, EOMI EARS, NOSE, THROAT: MMM LUNGS: CTAB HEART: RRR, no murmurs heard, defribilator in LUQ ABDOMEN: Soft, NTND, normoactive bowel sounds, no guarding, no rebound, no masses. large ring like purple ecchymosis in umbilical region along w/ petechia along abdomen (appears to be fading in color but spreading in surface area along abd), chest and legs, improving LOWER EXTREMITIES: 2+ pulses, warm, well-perfused. No calf tenderness. No peripheral edema. b/l foot/ankle swelling and erythema, TTP. L toes are cold dusky blue/purple color, DP pulses are palpable NEUROLOGICAL: Cranial nerves II-XII intact. PSYCHIATRIC: Cooperative. SKIN: Warm, dry, normal turgor, no rashes or lesions noted Laboratory Results - last 24 hr 07/13/18 07/19/18 07/19/18 20:20 03:30 06:00 WBC 8.9 RBC 3.99 L Hgb 11.7 Hct 36.5 MCV 91.5 MCH 29.3 MCHC 32.0 RDW 17.2 H Plt Count 84 L D MPV 9.7 Manual Slide Review Y PTT (Actin FS) 111.0 H Factor V Leiden POC Glucometer 07/19/18 07/19/18 07/19/18 06:00 12:28 17:54 WBC RBC Hgb Hct MCV MCH MCHC RDW Plt Count MPV Manual Slide Review PTT (Actin FS) 81.0 H Factor V Leiden POC Glucometer 181 292 07/19/18 07/19/18 07/20/18 20:20 22:06 06:42 WBC RBC Hgb Hct MCV MCH MCHC RDW Plt Count MPV Manual Slide Review PTT (Actin FS) 88.0 H Factor V Leiden POC Glucometer 227 158 Active Medications Generic Name Dose Route Start Last Admin Trade Name Freq PRN Reason Stop Dose Admin Acetaminophen 650 mg 07/14/18 16:18 07/14/18 17:24 Tylenol - PO 650 mg Q4H PRN Administration PAIN LEVEL 6-10 Atorvastatin Calcium 40 mg 07/15/18 22:00 07/19/18 22:08 Lipitor - PO 40 mg HS CLIVE Administration Budesonide/Formoterol Fumarate 2 puff 07/01/18 10:00 07/19/18 22:11 Symbicort 160/4.5mcg - IH 2 puff BID CLIVE Administration Carvedilol 3.125 mg 07/09/18 22:15 07/19/18 22:08 Coreg - PO 3.125 mg BID CLIVE Administration Cholecalciferol 5,000 unit 07/07/18 16:30 07/19/18 11:59 Vitamin D3 - PO Not Given DAILY CLIVE Febuxostat 40 mg 07/01/18 12:00 07/19/18 11:59 Uloric - PO Not Given DAILY CLIVE Argatroban 250,000 mcg/ Sodium 250 mls @ 1.2 mls/hr 07/16/18 21:45 07/19/18 22:13 Chloride IVPB 0.01 mcg/kg/min TITR CLIVE 0.1 mls/hr Administration Protocol 0.225 MCG/KG/MIN Insulin Aspart 1 vial 07/01/18 07:00 07/20/18 06:43 Novolog Vial Sliding Scale - SQ 2 units ACHS CLIVE Administration Protocol Olanzapine 2.5 mg 07/09/18 22:00 07/19/18 22:08 Zyprexa - PO 2.5 mg HS CLIVE Administration Polyethylene Glycol 17 gm 07/10/18 13:04 07/11/18 10:26 Miralax (For Daily Use) - PO 17 grams DAILY PRN Administration CONSTIPATION Sodium Bicarbonate 650 mg 07/03/18 10:00 07/19/18 22:08 Sodium Bicarbonate - PO 650 mg BID CLIVE Administration [id number] CT/ABDOMEN & PELVIS CT W/O CONTR HISTORY PROVIDED: Rule out bleed TECHNIQUE: Sequential axial images were obtained from the domes of the diaphragm through the symphysis pubis. The study is markedly limited without the use of any contrast material. There are bilateral pleural effusions, right greater than left. The heart is enlarged. No acute infiltrates are identified. There is a trace amount of ascites about the liver. The liver, spleen, pancreas, adrenal glands and kidneys demonstrate no gross abnormalities. Small renal cysts are present bilaterally. The gallbladder has been removed. There is no evidence of intra-abdominal or retroperitoneal lymphadenopathy or fluid collections. There is no evidence of pneumoperitoneum, bowel obstruction or intra-abdominal abscess. There is no CT evidence of acute appendicitis There is extensive diverticulosis coli with no evidence of acute diverticulitis. Examination of the pelvis demonstrates no evidence of pelvic masses, fluid collections or lymphadenopathy. The prostate gland is enlarged measuring 6.2 x 5.4 x 5.5 cm. There is no evidence of acute bony pathology. IMPRESSION: 1. Bilateral pleural effusions. 2. Trace ascites. 3. Extensive diverticulosis coli. 4. Prostatic enlargement. 5. No acute pathology within the abdomen or pelvis. Please see above discussion. [id number] RAD/ANKLE & FOOT-LEFT* [id number] RAD/ANKLE & FOOT-RIGHT* HISTORY PROVIDED: Pain and swelling AP, oblique and lateral projections of both feet and ankles reveals no evidence of fracture, dislocation or acute bone or joint abnormalities. Mild degenerative changes are present about the small joints of the feet and ankles. There is a well-circumscribed lytic lesion within the left navicular bone. This has a benign appearance and is not significant change since a prior study of 11/29/2015. There is also a small spur along the plantar surface of the left calcaneus. Mild soft tissue swelling is seen about the left lateral malleolus. IMPRESSION: Mild degenerative arthritis with no fracture or acute bone or joint abnormalities. Please see above discussion. Reported By: Lance Pitts MD 07/14/18 1522 [id number] US/DUPLEX VASCUL US-2LEGS [id number] US/DUPLEX ART. LEGS- LIMITED US BILATERAL LOWER EXTREMITY VENOUS ULTRASOUND Clinical information given: evaluate for DVT The exam was performed utilizing compression, grayscale, color flow and doppler sonography. There is no sonographic evidence of deep vein thrombosis. If there is clinical concern for possible isolated calf DVT or if there is a clinical diagnosis of uncomplicated superficial thrombophlebitis, then correlation with close follow up sonography is suggested. IMPRESSION: No DVT is identified involving either leg. Please see above. LEFT LOWER EXTREMITY ARTERIAL DOPPLER ULTRASOUND Clinical information: evaluate for arterial thrombus; cold left big toe with discoloration The exam was performed utilizing grayscale and Doppler sonography. Decreased monophasic flow is seen within the left posterior tibial artery. Exam coverage does not include the anterior tibial or peroneal arteries. Unremarkable triphasic flow is noted within the common femoral, superficial femoral and popliteal arteries. IMPRESSION: Decreased monophasic flow is seen within the left posterior tibial artery. Reported By: Bhavik Sargent MD 07/14/182007 [id number] RAD/BONE SURVEY (METASTATIC) Bone survey: Check for lytic lesions Chest: AP view of the chest reveals a large heart, unfolded aorta, multilead pacemaker, central congestive changes with questionable perihilar infiltrates, sharp angles and grossly intact bones with no sign of lytic or blastic changes. Skull: 2 views of the skull reveal no sign of blastic or lytic changes. There is demineralization of the clinoids. Lateral cervical spine: A single lateral view shows straightening with degenerative changes and wedging. Is no sign of blastic or lytic changes. There may be anterior clips or calcification in the prevertebral soft tissues by the upper cervical spine. Thoracic spine: AP and lateral views of the thoracic spine reveal scoliosis with minimal degenerative changes and no sign of blastic or lytic findings. There is a normal thoracic kyphosis. Lumbar spine: AP and lateral views are obscured in part by overlying contrast- filled loops of bowel. This is an incomplete evaluation. Blastic or lytic changes are not seen but is no sign of a gross fracture or subluxation. There is some straightening of the lumbar area. Pelvis: Single view of the pelvis is obscured in part by overlying contrast- filled loops of colon. What is seen shows no sign of blastic or lytic changes but this is an incomplete evaluation. Bilateral hips, femurs and knees: Blastic or lytic changes are not seen but is no sign of fracture or subluxation. Significant arthritic changes are not seen in the hips or knees. Right and left humerus: There is no sign of blastic or lytic changes. No sign of fracture or subluxation. Overall impression: No sign of blastic or lytic changes. No sign of a fracture. Limited visualization of the lumbar spine and pelvis due to overlying contrast filled loops of bowel. An AP view of the cervical spine has not been submitted. Correlation recommended. Reported By: Viktor Griffin MD 07/15/18 1737 [id number] US/DOPPLER,ABDOM ORGAN,COMP US [id number] US/KIDNEY / RENAL US Rule out renal vein thrombosis. Renal and Doppler ultrasound upper abdomen ultrasound dated renal ultrasound dated 06/17/2018 The right kidney measures 7.9 cm in sagittal length with a simple cyst measuring 2.1 x 1.8 cm. Another adjacent tiny cyst is present anteriorly measuring 7 x 6 mm. There is normal color and duplex evaluation of the right renal vein. Left kidney measures 9 cm in sagittal length with an upper pole partially exophytic simple cyst measuring 2.7 x 2.5 cm. Normal duplex evaluation of the left renal vein. There is no evidence of hydronephrosis or renal stones, bilaterally. Visualized portion of the liver appears unremarkable. Normal duplex evaluation of the inferior vena cava IMPRESSION: Bilateral renal simple cysts, as described above without evidence of gross renal stones or hydronephrosis. Patent right and left renal vein as well as a patent inferior vena cava. Reported By: Dallas Dutta MD 07/17/18 1013 ASSESSMENT/PLAN: 77 y/o M PMH HTN, HLD, LV dysfunction/CHF, CKD 4, CAD s/p stents, ND s/p defribilator, gout, DM, COPD due to smoking history?, who presented from Dr. Hood office with Weakness, poor PO intake, hypotension and found to have increasing confusion and ELLIOTT. There appears to have been a miscommunication between what cold roll catcher recommended and what the daughter gave. It appears as though the daughter continued to give the Lasix even though the patient was not supposed to be doing so. daughter has been concerned for a while about her father having dementia, on last admission pt was referred to Dr Munoz for an outpt dementia eval #? Metabolic encephalopathy vs suspected worsening dementia, poor PO intake. -Consulted NeurologyTammy: suspects likely underlying Alzheimer vs frontotemporal dementia with superimposed metabolic encephalopathy with generalized weakness, poor cardiac status likely contributory as well. per neuro , no focality to suggest new cerebral ischemic event, no evidence of seizures, meningitis, etc -Dr. Connolly consulted -CT head w/o acute changes -MRI is not an option since has a PPM/defibrilator -encourage PO hydration, s/p clinimix by nephro given his worsening dementia state and poor po intake -ammonia fluctuating but unlikely to be contributing to AMS, no need for lactulose, GI recs appreciated -cont to hold gabapentin to avoid worsening confusion, neuro recs appreciated -Vit B12, Folic acid elevated -ucx, RPR neg -psych consulted -c/w zyprexa per psych -family has decided for PEG. -IR consulted for PEG, will ideally need INR<1.5 and plt >100 -amusement park entertainer consulted, on calorie count #new petechiae and abdominal echymosis w/ elevated INR 1.79 (not on AC) and thrombocytopenia - unclear etiology. 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 H/H remains stable at baseline. no obvious source of bleed. possibly 2/2 liver disease/ injury and c/b vit K depletion 2/2 poor po intake/malabsorbtion as well as HIT. 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 nephro and heme recs appreciated, elevated BUN may be contributing but unclear at this time as levels of 100 may cause platelet dsfx but unclear if this is what is causing his bruising. Also noted w/ low fibrinogen, there may be component of mild chronic DIC? -heme/onc consulted, Palomino -corrected retic index is low indicating inadequate marrow response -CT A/P reviewed above, No acute pathology within the abdomen or pelvis -LDH, haptoglobin nl -FOBT neg -hold ASA and SQH -P and C ANCA, HERB neg -No evidence of Lupus anticoagulant -Mixing study: PT is elevated and PTT is nl, also Factor VII percentage is low. 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 spoke w/ heme despite pt pulling out IJ, cannot switch to SQ agent as renal fnx is bad. will need to cont w/ restraints and 1:1 observation. will hold off starting coumadin w/ IV agent until APRIL comes back confirming HIT. -will reattempt central line today # b/l foot/ankle swelling and erythema, TTP. L toes are cold dusky blue/purple color, DP pulses are palpable and heard on doppler - doesnt look infx or gout. likely represent emboli 2/2 chronic DIC? vs HIT, as discussed above b/l foot XR to r/o frx reviewed above duplex neg DVT arterial reviewd above, Decreased monophasic flow within left posterior tibial artery. c/w Lipitor 40 HS vascular consult, Manolo dcd off prednisone as unlikely to be gout mechanical restraints #ELLIOTT on CKD stage4 2/2 volume depletion, baseline Cr is 1.8-2 - 3...2.8...3...2.6...2.4, poor po intake and was not receiving clinimix or IVF due to pulling his IVs - improving w/ encouragement of PO intake, on calorie count -nephro consulted, Sushil -UA, MM immuno w/u neg -FeUrea was 38.5% indicating slight tubular dysfunction -hold ACEi and diuretics for now -encourage PO hydration, started on clinimix by nephro given his worsening dementia state and poor po intake -c/w PO bicarbonate for metabolic acidosis -metastatic series reviewed above, neg -Renal U/S reviewed above, showed no thrombosis #CHF with Severe LV dysfunction: not likely an acute issue -EKG was essentially unchanged since prior -cardio consult, Evy for optimization of HF meds, pt noted here w/ slightly low BP -carvedilol resumed at bid per cardio -hold ASA in setting of petechia and echymosis #Acute Transaminitis w/ elevated INR 1.79: likely 2/2 hepatic congestion 2/2 CHF w/ severe low EF, however component of ischemic injury may be present in setting of hypotension in the setting of volume depletion. The patient is not on any significant hepatotoxic medications. GI consulted, Dr. Camacho, and don' t think that he has hepatic encephalopathy or cirhosis given the lack of splenomegaly and normal liver size. - LFTs downtrending -hepatitis panel unremarkable -Ultrasound of the RUQ: fatty liver vs hepatocellular disease -restart lipitor at higher dose of 40 given embolic events and decreased vascular flow as mentioned above -No need for rifaximin and lactulose and tx of CHF will benefit the liver and should improve the LFTs, GI recs appreciated -Repeat colonoscopy in 2021 oupt #Hx of gout with elevated Uric acid - no signs of gout c/w home febuxostat #elevated TSH, and FT4, -as per pulverizer most likely sick euthyroid. -will follow with Dr. 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 will need to optimize INR and plt Visit type - Emergency Visit Emergency Visit: Yes ED Registration Date: 07/01/18 Care time: The patient presented to the Emergency Department on the above date and was hospitalized for further evaluation of their emergent condition. - New Patient This patient is new to me today: Yes Date on this admission: 07/20/18 - Critical Care Critical Care patient: No
[2018-07-20 08:17] LABS: INR 1.72 (0.83-1.09); PROTHROMBIN TIME (PATIENT) 20.4 SEC (9.7-13.0)
[2018-07-20 08:53] LABS: BASO % 0.1 % (0-2.0); EOS % 0.5 % (0-4.5); HEMATOCRIT 35.9 % (35.4-49); HEMOGLOBIN 11.5 GM/dL (11.7-16.9); LYMPH % 11.9 % (8-40); MCH 29.5 pg (25.7-33.7); MCHC 32.1 g/dl (32.0-35.9); MEAN PLT VOLUME 9.8 fl (7.5-11.1); NEUT % 81.5 % (42.8-82.8); PLATELET COUNT 78 K/MM3 (134-434); RDW 16.9 % (11.9-15.9); WHITE BLOOD COUNT 7.5 K/mm3 (4.0-10.0)
[2018-07-20 09:08] LABS: ALBUMIN 2.3 g/dl (3.4-5.0); BILIRUBIN,TOTAL 2.7 mg/dL (0.2-1); CALCIUM 8.1 mg/dL (8.5-10.1); CREATININE 2.4 mg/dL (0.55-1.3); MAGNESIUM 3.1 mg/dL (1.8-2.4); PHOSPHOROUS 3.5 mg/dL (2.5-4.9); POTASSIUM 4.2 mmol/L (3.5-5.1); TOT PROT 5.4 g/dl (6.4-8.2)
[2018-07-20 09:11] LABS: BLOOD UREA NITROGEN 108.4 mg/dL (7-18)
[2018-07-20] MEDS: CHOLECALCIFEROL (VIT D3) 1,000 UNIT (25 MCG) TABLET PO SCH (11:23)
[2018-07-20] MEDS: CARVEDILOL 3.125 MG TABLET (FP) PO SCH ×2 (11:23→21:37)
[2018-07-20] MEDS: FEBUXOSTAT 40 MG TAB PO SCH (11:24)
[2018-07-20] MEDS: SODIUM BICARBONATE 650 MG TABLET PO SCH ×2 (11:24→21:36)
[2018-07-20] MEDS: BUDESONIDE/FORMETEROL FUMARATE 160/4.5 mcg INHALER IH SCH ×2 (11:36→21:37)
[2018-07-20] MEDS ORDERED: LORazepam 2 MG/ML SDV VIAL IM ONE (13:30)
--- NOTE | 2018-07-20 13:46 | PN ---
Progress Note, Physician Chief Complaint: Pr is undergoing central line IV access. History of Present Illness: Mr. Toth is a 77 YO black man with a PMH of HTN, HLD, CKD, CAD s/p stents, [place] , with severe systoic CHF-->ICD, gout, COPD, hypothyroidism, who presents to the ER sent in by Dr. Connolly with generalized weakness, poor appetite, and after becoming hypotensive while in his office. Patient has had two recent admissions for dyspnea on exertion to rule out PE in this ED. Patient has been followed up by a customer pricing manager. Denies fever, chills, cp, N/V/C/D or urinary symptoms. Allergies: NKDA Social Hx: Former smoker. Denies drug or alcohol use. PCP: Dr. Holden Renal: Dr. Yane Connolly - Current Medication List Current Medications: Active Medications Acetaminophen (Tylenol -) 650 mg PO Q4H PRN PRN Reason: PAIN LEVEL 6-10 Last Admin: 07/14/18 17:24 Dose: 650 mg Atorvastatin Calcium (Lipitor -) 40 mg PO HS [facility] Last Admin: 07/19/18 22:08 Dose: 40 mg Budesonide/Formoterol Fumarate (Symbicort 160/4.5mcg -) 2 puff IH BID CLIVE Last Admin: 07/20/18 11:36 Dose: 2 puff Carvedilol (Coreg -) 3.125 mg PO BID CLIVE Last Admin: 07/20/18 11:23 Dose: Not Given Cholecalciferol (Vitamin D3 -) 5,000 unit PO DAILY CLIVE Last Admin: 07/20/18 11:23 Dose: 5,000 unit Febuxostat (Uloric -) 40 mg PO DAILY CLIVE Last Admin: 07/20/18 11:24 Dose: 40 mg Argatroban 250,000 mcg/ Sodium (Chloride) 250 mls @ 1.2 mls/hr IVPB TITR CLIVE; Protocol Last Admin: 07/19/18 22:13 Dose: 0.01 mcg/kg/min, 0.1 mls/hr Insulin Aspart (Novolog Vial Sliding Scale -) 1 vial SQ ACHS CLIVE; Protocol Last Admin: 07/20/18 11:25 Dose: Not Given Olanzapine (Zyprexa -) 2.5 mg PO HS CLIVE Last Admin: 06/10/19 22:08 Dose: 2.5 mg Polyethylene Glycol (Miralax (For Daily Use) -) 17 gm PO DAILY PRN PRN Reason: CONSTIPATION Last Admin: 07/11/18 10:26 Dose: 17 grams Sodium Bicarbonate (Sodium Bicarbonate -) 650 mg PO BID CLIVE Last Admin: 07/20/18 11:24 Dose: 650 mg - Objective Vital Signs: Vital Signs Temperature 97.8 F 07/20/18 10:00 Pulse Rate 74 07/20/18 10:00 Respiratory Rate 22 H 07/20/18 10:00 Blood Pressure 89/64 L 07/20/18 10:00 O2 Sat by Pulse Oximetry (%) 100 07/18/18 21:00 Labs: CBC, BMP 07/20/18 06:30 07/20/18 06:30 INR, PTT INR 1.72 (0.83-1.09) H 07/20/18 06:30 Fibrinogen 165.0 mg/dL (238-498) L D 07/18/18 23:05 Abnormal Lab Results 07/19/18 07/20/18 07/20/18 20:20 06:30 06:30 RBC 3.90 L Hgb 11.5 L RDW 16.9 H Plt Count 78 L PT with INR INR PTT (Actin FS) 88.0 H 105.4 H Chloride BUN Creatinine Random Glucose Calcium Magnesium Total Bilirubin AST Total Protein Albumin 07/20/18 07/20/18 06:30 06:30 RBC Hgb RDW Plt Count PT with INR 20.40 H INR 1.72 H PTT (Actin FS) Chloride 108 H BUN 108.4 H* Creatinine 2.4 H Random Glucose 167 H Calcium 8.1 L Magnesium 3.1 H Total Bilirubin 2.7 H AST 46 H Total Protein 5.4 L Albumin 2.3 L Problem List - Problems (1) Acute on chronic systolic and diastolic heart failure, NYHA class 1 Assessment/Plan: Carvedilol reduced to 3.125 mg daily due to hypotension, ?change in mental status. ACEI, spironolactone held due to renal dysfunction. F/u BUN/Cr, electrolytes, daily wt, Is and Os. 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 (2) Weakness Code(s): R53.1 - WEAKNESS (3) Acute on chronic renal insufficiency Assessment/Plan: f/u with neprhologist. Code(s): N28.9 - DISORDER OF KIDNEY AND URETER, UNSPECIFIED; N18.9 - CHRONIC KIDNEY DISEASE, UNSPECIFIED (4) COPD (chronic obstructive pulmonary disease) Code(s): J44.9 - CHRONIC OBSTRUCTIVE PULMONARY DISEASE, UNSPECIFIED (5) Gout Code(s): M10.9 - GOUT, UNSPECIFIED (6) History of heart artery stent Assessment/Plan: LDL cholesterol 57. On beta uli. Code(s): Z95.5 - PRESENCE OF CORONARY ANGIOPLASTY IMPLANT AND GRAFT (7) Hyperlipidemia Code(s): E78.5 - HYPERLIPIDEMIA, UNSPECIFIED (8) Hypertension Code(s): I10 - ESSENTIAL (PRIMARY) HYPERTENSION (9) ICD (implantable cardioverter-defibrillator) in place Code(s): Z95.810 - PRESENCE OF AUTOMATIC (IMPLANTABLE) CARDIAC DEFIBRILLATOR
[2018-07-20 14:47] VITALS: BMI 28.0
--- NOTE | 2018-07-20 15:58 | RAPID ---
Physical Examination Vital Signs: Vital Signs Temperature 97.8 F 07/20/18 10:00 Pulse Rate 74 07/20/18 10:00 Respiratory Rate 22 H 07/20/18 10:00 Blood Pressure 89/64 L 07/20/18 10:00 O2 Sat by Pulse Oximetry (%) 100 07/18/18 21:00 Findings/Remarks: Called to rapid response at 3:53pm d/t observation of irregular breathing and diaphoresis s/p IJ placement. Noted to be minimally responsive on arrival. BP 94 /66, HR 85. Ordered ABG, CBC, CMP, Mg, Phos, EKG, troponin, PT, PTT, lactate. PE: somnolent, minimally arousable to sternal rub irregular breathing pattern CTA b/l, decreased breath sounds at bases RRR no m/r/g 2+ pitting edema, extremities cool to touch b/l LE widespread petechiae Labs: CBC, BMP 07/20/18 06:30 07/20/18 06:30
[2018-07-20 16:24] LABS: ARTERIAL BLOOD GAS BASE EXCESS -0.8 meq/l (-2-2); ARTERIAL BLOOD GAS PCO2 21.2 mmHg (35-45); ARTERIAL BLOOD GAS PO2 154 mmHg (80-105); ARTERIAL BLOOD GAS pH 7.58 (7.35-7.45)
[2018-07-20 16:26] LABS: ALLENS TEST POSITIVE
[2018-07-20] MEDS ORDERED: FUROSEMIDE 40 MG/4 ML INJECTABLE VIAL IVPUSH ONE (16:45)
--- NOTE | 2018-07-20 17:18 | PN ---
Progress Note (short form) - Note Progress Note: Patient seen and examined Lethargic from ativan Last Vital Signs Temp Pulse Resp BP Pulse Ox 97.8 F 74 22 H 89/64 L 100 07/20/18 10:00 07/20/18 10:00 07/20/18 10:00 07/20/18 10:00 07/18/18 21:00 Lungs with poor inspiratory effort Cor-RSR Abd-soft COOl toes left lower extremity with some area of demarcation mid foot. Right foot warm- greyish discoloration CBC, BMP 07/20/18 06:30 Current Medications Generic Name Dose Route Start Last Admin Trade Name Freq PRN Reason Stop Dose Admin Acetaminophen 650 mg 07/14/18 16:18 07/14/18 17:24 Tylenol - PO 650 mg Q4H PRN Administration PAIN LEVEL 6-10 Atorvastatin Calcium 40 mg 07/15/18 22:00 07/19/18 22:08 Lipitor - PO 40 mg HS CLIVE Administration Budesonide/Formoterol Fumarate 2 puff 07/01/18 10:00 07/20/18 11:36 Symbicort 160/4.5mcg - IH 2 puff BID CLIVE Administration Carvedilol 3.125 mg 07/09/18 22:15 07/20/18 11:23 Coreg - PO Not Given BID CLIVE Cholecalciferol 5,000 unit 07/07/18 16:30 07/20/18 11:23 Vitamin D3 - PO 5,000 unit DAILY CLIVE Administration Febuxostat 40 mg 07/01/18 12:00 07/20/18 11:24 Uloric - PO 40 mg DAILY CLIVE Administration Argatroban 250,000 mcg/ Sodium 250 mls @ 1.2 mls/hr 07/16/18 21:45 07/19/18 22:13 Chloride IVPB 0.01 mcg/kg/min TITR CLIVE 0.1 mls/hr Administration Protocol 0.225 MCG/KG/MIN Insulin Aspart 1 vial 07/01/18 07:00 07/20/18 11:25 Novolog Vial Sliding Scale - SQ Not Given ACHS CLIVE Protocol Olanzapine 2.5 mg 07/09/18 22:00 07/19/18 22:08 Zyprexa - PO 2.5 mg HS CLIVE Administration Polyethylene Glycol 17 gm 07/10/18 13:04 07/11/18 10:26 Miralax (For Daily Use) - PO 17 grams DAILY PRN Administration CONSTIPATION Sodium Bicarbonate 650 mg 07/03/18 10:00 07/20/18 11:24 Sodium Bicarbonate - PO 650 mg BID CLIVE Administration Impression: CKD/ELLIOTT Liver disease ? low grade DIC On a/c with argatroban- repeat HIT was elevated Awaiting APRIL Coagulation - Factor V Ley[place] was obtained NOT FACTOR V Factor VII is low - but patient has underlying liver disease and this would be expected Need Factor V,VIII, and X to help evaluate for DIC - we tried greater than one week ago to obtain these Await APRIL- continue argatroban for now PTT therapeutic on low dose argatroban.
[2018-07-20 18:03] LABS: ALBUMIN 2.3 g/dl (3.4-5.0); BILIRUBIN,TOTAL 2.9 mg/dL (0.2-1); CALCIUM 8.1 mg/dL (8.5-10.1); CREATININE 2.5 mg/dL (0.55-1.3); MAGNESIUM 3.1 mg/dL (1.8-2.4); PHOSPHOROUS 3.6 mg/dL (2.5-4.9); POTASSIUM 4.4 mmol/L (3.5-5.1); TOT PROT 5.6 g/dl (6.4-8.2)
[2018-07-20 18:09] LABS: BASO % 0.1 % (0-2.0); EOS % 0.9 % (0-4.5); HEMATOCRIT 34.2 % (35.4-49); HEMOGLOBIN 10.9 GM/dL (11.7-16.9); LYMPH % 11.5 % (8-40); MCH 29.2 pg (25.7-33.7); MCHC 31.9 g/dl (32.0-35.9); MEAN CELL VOLUME 91.6 fl (80-96); MEAN PLT VOLUME 9.8 fl (7.5-11.1); MONO % 4.5 % (3.8-10.2); RBC 3.74 M/mm3 (4.00-5.60); RDW 17.2 % (11.9-15.9); WHITE BLOOD COUNT 7.1 K/mm3 (4.0-10.0)
[2018-07-20 18:22] LABS: INR 1.59 (0.83-1.09); PROTHROMBIN TIME (PATIENT) 18.8 SEC (9.7-13.0)
[2018-07-20 18:25] LABS: ACTIVATED PTT 48.1 SECONDS (25.2-36.5)
--- NOTE | 2018-07-20 19:37 | PROC ---
Central Line Insertion Indication: Poor Venous Access, Other (Argatroban infusion) Risks and Benefits Explained: Yes Consent on Chart: Yes Central Line: Triple Lumen Catheter Anesthesia: 1% Lidocaine Sterile Technique: Yes Ultrasound Guided Assistance: Yes Position: Left Internal Jugular Post Insertion: Yes: Bilateral Breath Sounds, Bilateral Chest Expansion, Chest X-Ray Ordered Sterile Dressing Applied: Yes
[2018-07-20 20:19] LABS: PLATELET COUNT 80 K/MM3 (134-434)
[2018-07-20] MEDS ORDERED: PT OWN MED DRAWER 7, Y5N ONE (20:55)
[2018-07-20] MEDS: OLANZapine 2.5 MG TABLET PO SCH (21:35)
[2018-07-20] MEDS: ATORVASTATIN CA 40 MG TABLET (FP) PO SCH (21:36)
--- NOTE | 2018-07-20 22:04 | PN ---
Teaching Attending Note Name of Resident: Elmo Wheeler ATTENDING PHYSICIAN STATEMENT I saw and evaluated the patient. I reviewed the resident's note and discussed the case with the resident. I agree with the resident's findings and plan as documented. SUBJECTIVE: Patient looks lethargic due to receiving sedation for having TLC, otherwise arousable. OBJECTIVE: Vital Signs Temperature 97.8 F 07/20/18 10:00 Pulse Rate 84 07/20/18 17:54 Respiratory Rate 20 07/20/18 17:54 Blood Pressure 106/64 07/20/18 17:54 O2 Sat by Pulse Oximetry (%) 100 07/18/18 21:00 GENERAL: The patient is awake, but more coherent . HEAD: Normal with no signs of trauma. EYES: PERRL, extraocular movements intact, sclera anicteric, conjunctiva clear. ENT: Ears normal, oropharynx clear without exudates, moist mucous membranes. NECK: Trachea midline, full range of motion, supple. LUNGS: Breath sounds equal, clear to auscultation bilaterally, no wheezes, no crackles, no accessory muscle use. HEART: Regular rate and rhythm, S1, S2 without murmur, rub or gallop. ABDOMEN: Soft, NT,ND, normoactive bowel sounds, ecchymosis around the umbilical cord is improving. EXTREMITIES: 2+ pulses, cool to touch, L>R, purple discoloration of both feet improving. NEUROLOGICAL: Cranial nerves II through XII grossly intact. Normal speech, gait not observed. PSYCH: better today, answers to questions SKIN: Warm, dry, normal turgor, no rashes or lesions noted CBCD WBC 7.1 K/mm3 (4.0-10.0) 07/20/18 17:17 RBC 3.74 M/mm3 (4.00-5.60) L 07/20/18 17:17 Hgb 10.9 GM/dL (11.7-16.9) L 07/20/18 17:17 Hct 34.2 % (35.4-49) L 07/20/18 17:17 MCV 91.6 fl (80-96) 07/20/18 17:17 MCHC 31.9 g/dl (32.0-35.9) L 07/20/18 17:17 RDW 17.2 % (11.9-15.9) H 07/20/18 17:17 Plt Count 80 K/MM3 (134-434) L 07/20/18 17:17 MPV 9.8 fl (7.5-11.1) 07/20/18 17:17 CMP Sodium 140 mmol/L (136-145) 07/20/18 16:00 Potassium 4.4 mmol/L (3.5-5.1) 07/20/18 16:00 Chloride 107 mmol/L (98-107) 07/20/18 16:00 Carbon Dioxide 26 mmol/L (21-32) 07/20/18 16:00 Anion Gap 8 MMOL/L (8-16) 07/20/18 16:00 BUN 112.0 mg/dL (7-18) H* 07/20/18 16:00 Creatinine 2.5 mg/dL (0.55-1.3) H 07/20/18 16:00 Glucose 98 mg/dL (65-99) 07/13/18 08:55 Random Glucose 213 mg/dL (74-106) H 07/20/18 16:00 Calcium 8.1 mg/dL (8.5-10.1) L 07/20/18 16:00 Total Bilirubin 2.9 mg/dL (0.2-1) H 07/20/18 16:00 AST 56 U/L (15-37) H 07/20/18 16:00 ALT 48 U/L (13-61) 07/20/18 16:00 Alkaline Phosphatase 92 U/L (45-117) 07/20/18 16:00 Total Protein 5.6 g/dl (6.4-8.2) L 07/20/18 16:00 Albumin 2.3 g/dl (3.4-5.0) L 07/20/18 16:00 CARDIAC ENZYMES Creatine Kinase 160 U/L (26-308) 06/30/18 21:30 Troponin I 0.04 ng/ml (0.00-0.05) 07/20/18 16:00 Current Medications Generic Name Dose Route Start Last Admin Trade Name Freq PRN Reason Stop Dose Admin Acetaminophen 650 mg 07/14/18 16:18 07/14/18 17:24 Tylenol - PO 650 mg Q4H PRN Administration PAIN LEVEL 6-10 Atorvastatin Calcium 40 mg 07/15/18 22:00 06/11/19 21:36 Lipitor - PO 40 mg HS CLIVE Administration Budesonide/Formoterol Fumarate 2 puff 07/01/18 10:00 07/20/18 21:37 Symbicort 160/4.5mcg - IH 2 puff BID CLIVE Administration Carvedilol 3.125 mg 07/09/18 22:15 07/20/18 21:37 Coreg - PO 3.125 mg BID CLIVE Administration Cholecalciferol 5,000 unit 07/07/18 16:30 07/20/18 11:23 Vitamin D3 - PO 5,000 unit DAILY CLIVE Administration Febuxostat 40 mg 07/01/18 12:00 07/20/18 11:24 Uloric - PO 40 mg DAILY CLIVE Administration Argatroban 250,000 mcg/ Sodium 250 mls @ 1.2 mls/hr 07/16/18 21:45 07/19/18 22:13 Chloride IVPB 0.01 mcg/kg/min TITR CLIVE 0.1 mls/hr Administration Protocol 0.225 MCG/KG/MIN Insulin Aspart 1 vial 07/01/18 07:00 07/20/18 21:34 Novolog Vial Sliding Scale - SQ 4 units ACHS CLIVE Administration Protocol Olanzapine 2.5 mg 07/09/18 22:00 07/20/18 21:35 Zyprexa - PO 2.5 mg HS CLIVE Administration Polyethylene Glycol 17 gm 07/10/18 13:04 07/11/18 10:26 Miralax (For Daily Use) - PO 17 grams DAILY PRN Administration CONSTIPATION Sodium Bicarbonate 650 mg 07/03/18 10:00 07/20/18 21:36 Sodium Bicarbonate - PO 650 mg BID CLIVE Administration Home Medications Medication Instructions Recorded Aspirin [ASA -] 81 mg PO DAILY 01/02/17 Cholecalciferol (Vitamin D3) 5,000 unit PO WEEKLY 01/02/17 [Vitamin D -] Febuxostat [Uloric] 40 mg PO DAILY 01/02/17 Gabapentin 300 mg PO DAILY 01/02/17 Glimepiride [Amaryl] 2 mg PO DAILY 01/02/17 Lipitor 10 mg PO HS 01/02/17 Carvedilol [Coreg -] 3.125 mg PO BID 06/17/18 Budesonide/Formeterol Fumarate 2 puff IH BID #1 inhaler 06/21/18 [SYMBICORT 160/4.5mcg -] ASSESSMENT AND PLAN: Patient is a 77yo male with PMHx of HTN, HLP, systolic CHF, COPD, CKD, CAD s/p stenting, DC, ICD, gout, DM, presented with general weakness and change of mental status. #Acute discoloration of lower extremity improving : off heparin now, due to HIT2 positive, continue Argatroban drip per hem/onc. Patient continues to pull his lines so mittens and wrist restraints when applies. Be careful with IVF # Petechiae and ecchymosis: with elevated PT and PTT. could be multifactorial, mixing study results noted. repeat Fibrinogen noted. no evidence of circulating anticoagulant, No evidence of Lupus anticoagulant . #Acute encephalopathy improving: multifactorial, on zyprexa continue . # ELLIOTT on CKD: with worsening creatinine level, will continue to monitor, cont bicarb ,dr willis on the case, if does not improve possible HD # Transaminitis: improving. No need for rifaximin and lactulose as per GI. # Mild hypotension:due to volume depletion # H/o systolic CHF: hold diuresis in setting of volume depletion. cont coreg, hold for hypotension # Euthyroid sick syndrome: repeat as out pt # DM: cont SSI # thrombocytopenia: positive for hit antibodies will require rehab [place]. patient is tolerating diet well when fully awake will continue to monitor
[2018-07-21] MEDS: ARGATROBAN - 250,000 MCG in SODIUM CHLORIDE 247.5 ML IVPB SCH (05:10)
[2018-07-21] MEDS: INSULIN SLIDING SCALE (NOVOLOG) 1 VIAL SQ SCH ×4 (06:11→22:00)
--- NOTE | 2018-07-21 07:21 | PN ---
Physical Exam: SUBJECTIVE: Patient seen and examined at bedside. no acute events overnight. 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 yesterday pt pulled out IJ and was noted to be bleeding from IJ, bed sheet and pillow with fresh blood EBL ~10-20cc. pressure and dressing was applied to stop bleed, and 1:1 and restraints on board as pt is at risk of harming himself and noted to be pulling at IVs and other equipment. IJ replaced. Rapid response was called in afternoon for concern of lethargy and SOB. w/u unremarkable, likely sxs related to ativan use with line placement. pt relatively alert and at baseline, responding to voice and following commands denies cp, sob, fever, n/v/d. Pt cont to take his clothes off and lays in bed naked. In general confused/forgetful, fatigued, lethargic, however more alert today. Family wants PEG OBJECTIVE: Vital Signs Period Temp Pulse Resp BP Sys/Robbins Pulse Ox Last 24 Hr 97.5 F-97.8 F 74-84 20-22 89-106/61-70 GENERAL:AOX 1-2, NAD. In general confused/forgetful, fatigued, lethargic, however more alert today. cont to take his clothes off and lays in bed naked. HEENT: NCAT, PERRLA, EOMI, MMM, +L IJ LUNGS: CTAB HEART: RRR, no murmurs heard, defribilator in LUQ ABDOMEN: Soft, NTND, normoactive bowel sounds, no guarding, no rebound, no masses. fading purple ecchymosis in umbilical region along w/ petechia along abdomen, chest and legs, improving LOWER EXTREMITIES: 2+ pulses, warm, well-perfused. No calf tenderness. No peripheral edema. b/l foot/ankle swelling and erythema, TTP. L toes are cold dusky blue/purple color, DP pulses are palpable NEUROLOGICAL: Cranial nerves II-XII intact. PSYCHIATRIC: Cooperative. SKIN: Warm, dry, normal turgor, no rashes or lesions noted Laboratory Results - last 24 hr 07/20/18 07/20/18 07/20/18 06:30 06:30 06:30 WBC 7.5 RBC 3.90 L Hgb 11.5 L Hct 35.9 MCV 92.0 MCH 29.5 MCHC 32.1 RDW 16.9 H Plt Count 78 L MPV 9.8 Absolute Neuts (auto) 6.1 Neutrophils % 81.5 Lymphocytes % 11.9 D Monocytes % 6.0 Eosinophils % 0.5 D Basophils % 0.1 Nucleated RBC % 0 PT with INR 20.40 H INR 1.72 H PTT (Actin FS) 105.4 H Anticoagulation Therapy Puncture Site ABG pH ABG pCO2 at Pt Temp ABG pO2 at Pt Temp ABG HCO3 ABG O2 Sat (Measured) ABG O2 Content ABG Base Excess Rahat Test O2 Delivery Device Oxygen Flow Rate Vent Mode Vent Rate Mechanical Rate Pressure Support Vent Sodium Potassium Chloride Carbon Dioxide Anion Gap BUN Creatinine Est GFR (CKD-EPI)AfAm Est GFR (CKD-EPI)NonAf POC Glucometer Random Glucose Calcium Phosphorus Magnesium Total Bilirubin AST ALT Alkaline Phosphatase Troponin I Total Protein Albumin Blood Type Antibody Screen 07/20/18 07/20/18 07/20/18 06:30 11:22 16:00 WBC RBC Hgb Hct MCV MCH MCHC RDW Plt Count MPV Absolute Neuts (auto) Neutrophils % Lymphocytes % Monocytes % Eosinophils % Basophils % Nucleated RBC % PT with INR INR PTT (Actin FS) Anticoagulation Therapy Puncture Site ABG pH ABG pCO2 at Pt Temp ABG pO2 at Pt Temp ABG HCO3 ABG O2 Sat (Measured) ABG O2 Content ABG Base Excess Rahat Test O2 Delivery Device Oxygen Flow Rate Vent Mode Vent Rate Mechanical Rate Pressure Support Vent Sodium 139 140 Potassium 4.2 4.4 Chloride 108 H 107 Carbon Dioxide 21 26 Anion Gap 10 8 BUN 108.4 H* 112.0 H* Creatinine 2.4 H 2.5 H Est GFR (CKD-EPI)AfAm 29.27 27.86 Est GFR (CKD-EPI)NonAf 25.26 24.04 POC Glucometer 144 Random Glucose 167 H 213 H Calcium 8.1 L 8.1 L Phosphorus 3.5 3.6 Magnesium 3.1 H 3.1 H Total Bilirubin 2.7 H 2.9 H AST 46 H 56 H ALT 44 48 Alkaline Phosphatase 86 92 Troponin I 0.04 Total Protein 5.4 L 5.6 L Albumin 2.3 L 2.3 L Blood Type Antibody Screen 07/20/18 07/20/18 07/20/18 16:05 16:09 17:17 WBC 7.1 RBC 3.74 L Hgb 10.9 L Hct 34.2 L MCV 91.6 MCH 29.2 MCHC 31.9 L RDW 17.2 H Plt Count 80 L MPV 9.8 Absolute Neuts (auto) 5.9 Neutrophils % 83.0 H Lymphocytes % 11.5 Monocytes % 4.5 Eosinophils % 0.9 Basophils % 0.1 Nucleated RBC % 0 PT with INR INR PTT (Actin FS) Anticoagulation Therapy No Result Required. Puncture Site Right radial ABG pH 7.58 H ABG pCO2 at Pt Temp 21.2 L ABG pO2 at Pt Temp 154 H ABG HCO3 19.7 L ABG O2 Sat (Measured) 100.0 H ABG O2 Content 15.4 ABG Base Excess -0.8 Rahat Test Positive O2 Delivery Device No Result Required. Oxygen Flow Rate Yes Vent Mode No Result Required. Vent Rate No Result Required. Mechanical Rate No Result Required. Pressure Support Vent No Result Required. Sodium Potassium Chloride Carbon Dioxide Anion Gap BUN Creatinine Est GFR (CKD-EPI)AfAm Est GFR (CKD-EPI)NonAf POC Glucometer 201 Random Glucose Calcium Phosphorus Magnesium Total Bilirubin AST ALT Alkaline Phosphatase Troponin I Total Protein Albumin Blood Type Antibody Screen 07/20/18 07/20/18 07/20/18 17:17 17:17 21:30 WBC RBC Hgb Hct MCV MCH MCHC RDW Plt Count MPV Absolute Neuts (auto) Neutrophils % Lymphocytes % Monocytes % Eosinophils % Basophils % Nucleated RBC % PT with INR 18.80 H INR 1.59 H PTT (Actin FS) 48.1 H Anticoagulation Therapy Puncture Site ABG pH ABG pCO2 at Pt Temp ABG pO2 at Pt Temp ABG HCO3 ABG O2 Sat (Measured) ABG O2 Content ABG Base Excess Rahat Test O2 Delivery Device Oxygen Flow Rate Vent Mode Vent Rate Mechanical Rate Pressure Support Vent Sodium Potassium Chloride Carbon Dioxide Anion Gap BUN Creatinine Est GFR (CKD-EPI)AfAm Est GFR (CKD-EPI)NonAf POC Glucometer 205 Random Glucose Calcium Phosphorus Magnesium Total Bilirubin AST ALT Alkaline Phosphatase Troponin I Total Protein Albumin Blood Type A POSITIVE Antibody Screen Negative 07/21/18 06:08 WBC RBC Hgb Hct MCV MCH MCHC RDW Plt Count MPV Absolute Neuts (auto) Neutrophils % Lymphocytes % Monocytes % Eosinophils % Basophils % Nucleated RBC % PT with INR INR PTT (Actin FS) Anticoagulation Therapy Puncture Site ABG pH ABG pCO2 at Pt Temp ABG pO2 at Pt Temp ABG HCO3 ABG O2 Sat (Measured) ABG O2 Content ABG Base Excess Rahat Test O2 Delivery Device Oxygen Flow Rate Vent Mode Vent Rate Mechanical Rate Pressure Support Vent Sodium Potassium Chloride Carbon Dioxide Anion Gap BUN Creatinine Est GFR (CKD-EPI)AfAm Est GFR (CKD-EPI)NonAf POC Glucometer 139 Random Glucose Calcium Phosphorus Magnesium Total Bilirubin AST ALT Alkaline Phosphatase Troponin I Total Protein Albumin Blood Type Antibody Screen Active Medications Generic Name Dose Route Start Last Admin Trade Name Freq PRN Reason Stop Dose Admin Acetaminophen 650 mg 07/14/18 16:18 07/14/18 17:24 Tylenol - PO 650 mg Q4H PRN Administration PAIN LEVEL 6-10 Atorvastatin Calcium 40 mg 07/15/18 22:00 07/20/18 21:36 Lipitor - PO 40 mg HS CLIVE Administration Budesonide/Formoterol Fumarate 2 puff 07/01/18 10:00 07/20/18 21:37 Symbicort 160/4.5mcg - IH 2 puff BID CLIVE Administration Carvedilol 3.125 mg 07/09/18 22:15 07/20/18 21:37 Coreg - PO 3.125 mg BID CLIVE Administration Cholecalciferol 5,000 unit 07/07/18 16:30 07/20/18 11:23 Vitamin D3 - PO 5,000 unit DAILY CLIVE Administration Febuxostat 40 mg 07/01/18 12:00 07/20/18 11:24 Uloric - PO 40 mg DAILY CLIVE Administration Argatroban 250,000 mcg/ Sodium 250 mls @ 1.2 mls/hr 07/16/18 21:45 07/21/18 05:10 Chloride IVPB Not Given TITR CLIVE Protocol 0.225 MCG/KG/MIN Insulin Aspart 1 vial 07/01/18 07:00 07/21/18 06:11 Novolog Vial Sliding Scale - SQ Not Given ACHS CLIVE Protocol Olanzapine 2.5 mg 07/09/18 22:00 07/20/18 21:35 Zyprexa - PO 2.5 mg HS CLIVE Administration Polyethylene Glycol 17 gm 07/10/18 13:04 07/11/18 10:26 Miralax (For Daily Use) - PO 17 grams DAILY PRN Administration CONSTIPATION Sodium Bicarbonate 650 mg 07/03/18 10:00 07/20/18 21:36 Sodium Bicarbonate - PO 650 mg BID CLIVE Administration [id number] CT/ABDOMEN & PELVIS CT W/O CONTR HISTORY PROVIDED: Rule out bleed TECHNIQUE: Sequential axial images were obtained from the domes of the diaphragm through the symphysis pubis. The study is markedly limited without the use of any contrast material. There are bilateral pleural effusions, right greater than left. The heart is enlarged. No acute infiltrates are identified. There is a trace amount of ascites about the liver. The liver, spleen, pancreas, adrenal glands and kidneys demonstrate no gross abnormalities. Small renal cysts are present bilaterally. The gallbladder has been removed. There is no evidence of intra-abdominal or retroperitoneal lymphadenopathy or fluid collections. There is no evidence of pneumoperitoneum, bowel obstruction or intra-abdominal abscess. There is no CT evidence of acute appendicitis There is extensive diverticulosis coli with no evidence of acute diverticulitis. Examination of the pelvis demonstrates no evidence of pelvic masses, fluid collections or lymphadenopathy. The prostate gland is enlarged measuring 6.2 x 5.4 x 5.5 cm. There is no evidence of acute bony pathology. IMPRESSION: 1. Bilateral pleural effusions. 2. Trace ascites. 3. Extensive diverticulosis coli. 4. Prostatic enlargement. 5. No acute pathology within the abdomen or pelvis. Please see above discussion. [id number] RAD/ANKLE & FOOT-LEFT* [id number] RAD/ANKLE & FOOT-RIGHT* HISTORY PROVIDED: Pain and swelling AP, oblique and lateral projections of both feet and ankles reveals no evidence of fracture, dislocation or acute bone or joint abnormalities. Mild degenerative changes are present about the small joints of the feet and ankles. There is a well-circumscribed lytic lesion within the left navicular bone. This has a benign appearance and is not significant change since a prior study of 11/29/2015. There is also a small spur along the plantar surface of the left calcaneus. Mild soft tissue swelling is seen about the left lateral malleolus. IMPRESSION: Mild degenerative arthritis with no fracture or acute bone or joint abnormalities. Please see above discussion. Reported By: Lance Pitts MD 07/14/18 1522 [id number] US/DUPLEX VASCUL US-2LEGS [id number] US/DUPLEX ART. LEGS- LIMITED US BILATERAL LOWER EXTREMITY VENOUS ULTRASOUND Clinical information given: evaluate for DVT The exam was performed utilizing compression, grayscale, color flow and doppler sonography. There is no sonographic evidence of deep vein thrombosis. If there is clinical concern for possible isolated calf DVT or if there is a clinical diagnosis of uncomplicated superficial thrombophlebitis, then correlation with close follow up sonography is suggested. IMPRESSION: No DVT is identified involving either leg. Please see above. LEFT LOWER EXTREMITY ARTERIAL DOPPLER ULTRASOUND Clinical information: evaluate for arterial thrombus; cold left big toe with discoloration The exam was performed utilizing grayscale and Doppler sonography. Decreased monophasic flow is seen within the left posterior tibial artery. Exam coverage does not include the anterior tibial or peroneal arteries. Unremarkable triphasic flow is noted within the common femoral, superficial femoral and popliteal arteries. IMPRESSION: Decreased monophasic flow is seen within the left posterior tibial artery. Reported By: Bhavik Sargent MD 07/14/182007 [id number] RAD/BONE SURVEY (METASTATIC) Bone survey: Check for lytic lesions Chest: AP view of the chest reveals a large heart, unfolded aorta, multilead pacemaker, central congestive changes with questionable perihilar infiltrates, sharp angles and grossly intact bones with no sign of lytic or blastic changes. Skull: 2 views of the skull reveal no sign of blastic or lytic changes. There is demineralization of the clinoids. Lateral cervical spine: A single lateral view shows straightening with degenerative changes and wedging. Is no sign of blastic or lytic changes. There may be anterior clips or calcification in the prevertebral soft tissues by the upper cervical spine. Thoracic spine: AP and lateral views of the thoracic spine reveal scoliosis with minimal degenerative changes and no sign of blastic or lytic findings. There is a normal thoracic kyphosis. Lumbar spine: AP and lateral views are obscured in part by overlying contrast- filled loops of bowel. This is an incomplete evaluation. Blastic or lytic changes are not seen but is no sign of a gross fracture or subluxation. There is some straightening of the lumbar area. Pelvis: Single view of the pelvis is obscured in part by overlying contrast- filled loops of colon. What is seen shows no sign of blastic or lytic changes but this is an incomplete evaluation. Bilateral hips, femurs and knees: Blastic or lytic changes are not seen but is no sign of fracture or subluxation. Significant arthritic changes are not seen in the hips or knees. Right and left humerus: There is no sign of blastic or lytic changes. No sign of fracture or subluxation. Overall impression: No sign of blastic or lytic changes. No sign of a fracture. Limited visualization of the lumbar spine and pelvis due to overlying contrast filled loops of bowel. An AP view of the cervical spine has not been submitted. Correlation recommended. Reported By: Viktor Griffin MD 07/15/18 1737 [id number] US/DOPPLER,ABDOM ORGAN,COMP US [id number] US/KIDNEY / RENAL US Rule out renal vein thrombosis. Renal and Doppler ultrasound upper abdomen ultrasound dated renal ultrasound dated 06/17/2018 The right kidney measures 7.9 cm in sagittal length with a simple cyst measuring 2.1 x 1.8 cm. Another adjacent tiny cyst is present anteriorly measuring 7 x 6 mm. There is normal color and duplex evaluation of the right renal vein. Left kidney measures 9 cm in sagittal length with an upper pole partially exophytic simple cyst measuring 2.7 x 2.5 cm. Normal duplex evaluation of the left renal vein. There is no evidence of hydronephrosis or renal stones, bilaterally. Visualized portion of the liver appears unremarkable. Normal duplex evaluation of the inferior vena cava IMPRESSION: Bilateral renal simple cysts, as described above without evidence of gross renal stones or hydronephrosis. Patent right and left renal vein as well as a patent inferior vena cava. Reported By: Dallas Dutta MD 07/17/18 1013 ASSESSMENT/PLAN: 77 y/o M PMH HTN, HLD, LV dysfunction/CHF, CKD 4, CAD s/p stents, DE s/p defribilator, gout, DM, COPD due to smoking history?, who presented from Dr. Hood office with Weakness, poor PO intake, hypotension and found to have increasing confusion and ELLIOTT. There appears to have been a miscommunication between what dentistry teacher recommended and what the daughter gave. It appears as though the daughter continued to give the Lasix even though the patient was not supposed to be doing so. daughter has been concerned for a while about her father having dementia, on last admission pt was referred to Dr Munoz for an outpt dementia eval #? Metabolic encephalopathy vs suspected worsening dementia, poor PO intake. -Consulted NeurologyTammy: suspects likely underlying Alzheimer vs frontotemporal dementia with superimposed metabolic encephalopathy with generalized weakness, poor cardiac status likely contributory as well. per neuro , no focality to suggest new cerebral ischemic event, no evidence of seizures, meningitis, etc -Dr. Connolly consulted -CT head w/o acute changes -MRI is not an option since has a PPM/defibrilator -encourage PO hydration, s/p clinimix by nephro given his worsening dementia state and poor po intake -ammonia fluctuating but unlikely to be contributing to AMS, no need for lactulose, GI recs appreciated -cont to hold gabapentin to avoid worsening confusion, neuro recs appreciated -Vit B12, Folic acid elevated -ucx, RPR neg -psych consulted -c/w zyprexa per psych -family has decided for PEG. -IR consulted for PEG, will ideally need INR<1.5 and plt >100 -quality assurance representative consulted, on calorie count #new petechiae and abdominal echymosis w/ elevated INR 1.79 (not on AC) and thrombocytopenia - unclear etiology. 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 H/H remains stable at baseline. no obvious source of bleed. possibly 2/2 liver disease/ injury and c/b vit K depletion 2/2 poor po intake/malabsorbtion as well as HIT. Also noted w/ low fibrinogen, there may be component of mild chronic DIC? 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 nephro and heme recs appreciated, elevated BUN may be contributing but unclear at this time as levels of 100 may cause platelet dsfx but unclear if this is what is causing his bruising. -heme/onc consulted, [place] -corrected retic index is low indicating inadequate marrow response -CT A/P reviewed above, No acute pathology within the abdomen or pelvis -LDH, haptoglobin nl -FOBT neg -hold ASA and SQH -P and C ANCA, HERB neg -No evidence of Lupus anticoagulant -Mixing study: PT is elevated and PTT is nl, also Factor VII percentage is low. 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 spoke w/ heme despite pt pulling out IJ, cannot switch to SQ agent as renal fnx is bad. will need to cont w/ restraints and 1:1 observation. will hold off starting coumadin w/ IV agent until APRIL comes back confirming HIT. # b/l foot/ankle swelling and erythema, TTP. L toes are cold dusky blue/purple color, DP pulses are palpable and heard on doppler - doesnt look infx or gout. likely represent emboli 2/2 chronic DIC? vs HIT, as discussed above b/l foot XR to r/o frx reviewed above duplex neg DVT arterial reviewd above, Decreased monophasic flow within left posterior tibial artery. c/w Lipitor 40 HS vascular consult, Manolo mechanical restraints #ELLIOTT on CKD stage4 2/2 volume depletion, baseline Cr is 1.8-2 - 3...2.8...3...2.6...2.4...2.2, poor po intake and was not receiving clinimix or IVF due to pulling his IVs - improving w/ encouragement of PO intake, on calorie count -nephro consulted, Sushil -UA, MM immuno w/u neg -FeUrea was 38.5% indicating slight tubular dysfunction -hold ACEi and diuretics for now -encourage PO hydration -c/w PO bicarbonate for metabolic acidosis -metastatic series reviewed above, neg -Renal U/S reviewed above, showed no thrombosis #CHF with Severe LV dysfunction: not likely an acute issue -EKG was essentially unchanged since prior -cardio consult, Evy for optimization of HF meds, pt noted here w/ slightly low BP -carvedilol resumed at bid per cardio -hold ASA in setting of petechia and echymosis #Acute Transaminitis w/ elevated INR 1.79: likely 2/2 hepatic congestion 2/2 CHF w/ severe low EF, however component of ischemic injury may be present in setting of hypotension in the setting of volume depletion. The patient is not on any significant hepatotoxic medications. GI consulted, Dr. Camacho, and don' t think that he has hepatic encephalopathy or cirhosis given the lack of splenomegaly and normal liver size. - LFTs downtrending -hepatitis panel unremarkable -Ultrasound of the RUQ: fatty liver vs hepatocellular disease -restart lipitor at higher dose of 40 given embolic events and decreased vascular flow as mentioned above -No need for rifaximin and lactulose and tx of CHF will benefit the liver and should improve the LFTs, GI recs appreciated -Repeat colonoscopy in 2021 oupt #Hx of gout with elevated Uric acid - no signs of gout c/w home febuxostat #elevated TSH, and FT4, -as per turf manager most likely sick euthyroid. -will follow with Dr. 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 will need to optimize INR and plt Visit type - Emergency Visit Emergency Visit: Yes ED Registration Date: 07/01/18 Care time: The patient presented to the Emergency Department on the above date and was hospitalized for further evaluation of their emergent condition. - New Patient This patient is new to me today: Yes Date on this admission: 07/21/18 - Critical Care Critical Care patient: No
[2018-07-21 07:32] LABS: INR 1.59 (0.83-1.09); PROTHROMBIN TIME (PATIENT) 18.8 SEC (9.7-13.0)
[2018-07-21 07:52] LABS: ALBUMIN 2.1 g/dl (3.4-5.0); BILIRUBIN,TOTAL 2.6 mg/dL (0.2-1); CALCIUM 7.6 mg/dL (8.5-10.1); CREATININE 2.2 mg/dL (0.55-1.3); MAGNESIUM 2.7 mg/dL (1.8-2.4); PHOSPHOROUS 3.4 mg/dL (2.5-4.9); POTASSIUM 4.2 mmol/L (3.5-5.1); TOT PROT 5.2 g/dl (6.4-8.2)
[2018-07-21 08:04] LABS: HEMATOCRIT 33.3 % (35.4-49); HEMOGLOBIN 10.8 GM/dL (11.7-16.9); MCH 29.6 pg (25.7-33.7); MCHC 32.3 g/dl (32.0-35.9); MEAN CELL VOLUME 91.7 fl (80-96); MEAN PLT VOLUME 9.7 fl (7.5-11.1); PLATELET COUNT 81 K/MM3 (134-434); RBC 3.64 M/mm3 (4.00-5.60); RDW 16.9 % (11.9-15.9); WHITE BLOOD COUNT 7.5 K/mm3 (4.0-10.0)
[2018-07-21 08:05] LABS: BASO % 0.1 % (0-2.0); EOS % 1.1 % (0-4.5); LYMPH % 10.3 % (8-40); MONO % 5.2 % (3.8-10.2); NEUT % 83.3 % (42.8-82.8)
[2018-07-21 08:13] LABS: BLOOD UREA NITROGEN 110.2 mg/dL (7-18)
[2018-07-21] MEDS: CHOLECALCIFEROL (VIT D3) 1,000 UNIT (25 MCG) TABLET PO SCH (11:57)
[2018-07-21] MEDS: SODIUM BICARBONATE 650 MG TABLET PO SCH ×2 (11:58→22:00)
[2018-07-21] MEDS: BUDESONIDE/FORMETEROL FUMARATE 160/4.5 mcg INHALER IH SCH ×2 (11:58→22:00)
[2018-07-21] MEDS: CARVEDILOL 3.125 MG TABLET (FP) PO SCH ×2 (11:58→22:00)
[2018-07-21] MEDS: FEBUXOSTAT 40 MG TAB PO SCH (11:59)
--- NOTE | 2018-07-21 12:03 | PN ---
Progress Note, Physician Chief Complaint: sob History of Present Illness: The patient is a 77YOM with a PMH of HTN, HLD, CKD, CAD s/p stents, ME s/p defibrillator, gout, COPD, hypothyroidism, and CHF who presents to the ER sent in by Dr. Connolly with generalized weakness, poor appetite, and after becoming hypotensive while in his office. Patient has had two recent admissions for dyspnea on exertion to rule out PE in this ED. 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 Denies fever, chills, cp, N/V/C/D or urinary symptoms. Allergies: NKDA Social Hx: Former smoker. Denies drug or alcohol use. PCP: Dr. Holden Renal: Dr. Yane Connolly PMH PMH of ME (?x 2), severe systolic LV dsyfunction with ICD placed ?2 yrs ago, HTN , HLD, CAD s/p stents, renal dysfunction, COPD (quit cigarettes 10 yrs ago) unintentional weight loss, per family, and gout who presents to the ER with shortness of breath. He was recently discharged from [facility] after being admitted for ?"small ME and levated troponin." (per pt, he was there for two nights). - Current Medication List Current Medications: Active Medications Acetaminophen (Tylenol -) 650 mg PO Q4H PRN PRN Reason: PAIN LEVEL 6-10 Last Admin: 07/14/18 17:24 Dose: 650 mg Atorvastatin Calcium (Lipitor -) 40 mg PO HS REPLACED BY [facility] Last Admin: 07/20/18 21:36 Dose: 40 mg Budesonide/Formoterol Fumarate (Symbicort 160/4.5mcg -) 2 puff IH BID REPLACED BY [facility] Last Admin: 07/21/18 11:58 Dose: 2 puff Carvedilol (Coreg -) 3.125 mg PO BID REPLACED BY [facility] Last Admin: 07/21/18 11:58 Dose: 3.125 mg Cholecalciferol (Vitamin D3 -) 5,000 unit PO DAILY REPLACED BY [facility] Last Admin: 07/21/18 11:57 Dose: 5,000 unit Febuxostat (Uloric -) 40 mg PO DAILY REPLACED BY [facility] Last Admin: 07/21/18 11:59 Dose: 40 mg Argatroban 250,000 mcg/ Sodium (Chloride) 250 mls @ 1.2 mls/hr IVPB TITR REPLACED BY [facility]; Protocol Last Admin: 07/21/18 05:10 Dose: Not Given Insulin Aspart (Novolog Vial Sliding Scale -) 1 vial SQ ACHS REPLACED BY [facility]; Protocol Last Admin: 07/21/18 06:11 Dose: Not Given Olanzapine (Zyprexa -) 2.5 mg PO HS REPLACED BY [facility] Last Admin: 07/20/18 21:35 Dose: 2.5 mg Polyethylene Glycol (Miralax (For Daily Use) -) 17 gm PO DAILY PRN PRN Reason: CONSTIPATION Last Admin: 07/11/18 10:26 Dose: 17 grams Sodium Bicarbonate (Sodium Bicarbonate -) 650 mg PO BID REPLACED BY [facility] Last Admin: 07/21/18 11:58 Dose: 650 mg - Objective Vital Signs: Vital Signs Temperature 97.5 F L 07/21/18 06:00 Pulse Rate 82 07/21/18 06:00 Respiratory Rate 20 07/21/18 06:00 Blood Pressure 90/70 07/21/18 06:00 O2 Sat by Pulse Oximetry (%) 100 07/18/18 21:00 Eyes: Yes: WNL, Conjunctiva Clear, EOM Intact HENT: Yes: WNL, Atraumatic, Normocephalic Neck: Yes: WNL, Supple, Trachea Midline Cardiovascular: Yes: WNL, Regular Rate and Rhythm Respiratory: Yes: WNL, Regular, CTA Bilaterally Gastrointestinal: Yes: WNL, Normal Bowel Sounds Genitourinary: Yes: WNL Musculoskeletal: Yes: WNL Extremities: Yes: WNL Edema: No Integumentary: Yes: WNL ...Motor Strength: WNL Psychiatric: Yes: WNL Labs: CBC, BMP 07/21/18 06:00 07/21/18 06:00 INR, PTT INR 1.59 (0.83-1.09) H 07/21/18 06:00 Fibrinogen 165.0 mg/dL (238-498) L D 07/18/18 23:05 Problem List - Problems (1) ELLIOTT (acute kidney injury) Code(s): N17.9 - ACUTE KIDNEY FAILURE, UNSPECIFIED (2) Elevated transaminase level Code(s): R74.0 - NONSPEC ELEV OF LEVELS OF TRANSAMNS & LACTIC ACID DEHYDRGNSE (3) Hypotension Code(s): I95.9 - HYPOTENSION, UNSPECIFIED Qualifiers: Hypotension type: unspecified hypotension type Qualified Code(s): I95.9 - Hypotension, unspecified (4) Weakness Code(s): R53.1 - WEAKNESS (5) Acute on chronic renal insufficiency Code(s): N28.9 - DISORDER OF KIDNEY AND URETER, UNSPECIFIED; N18.9 - CHRONIC KIDNEY DISEASE, UNSPECIFIED (6) Anemia Code(s): D64.9 - ANEMIA, UNSPECIFIED Qualifiers: Anemia type: unspecified type Qualified Code(s): D64.9 - Anemia, unspecified (7) Atypical chest pain Code(s): R07.89 - OTHER CHEST PAIN (8) COPD (chronic obstructive pulmonary disease) Code(s): J44.9 - CHRONIC OBSTRUCTIVE PULMONARY DISEASE, UNSPECIFIED (9) Cardiac arrhythmia Code(s): I49.9 - CARDIAC ARRHYTHMIA, UNSPECIFIED (10) Chest wall pain Code(s): R07.89 - OTHER CHEST PAIN (11) Colonic adenoma Code(s): D12.6 - BENIGN NEOPLASM OF COLON, UNSPECIFIED (12) Coronary arteriosclerosis Code(s): I25.10 - ATHSCL HEART DISEASE OF [place] CORONARY ARTERY W/O ANG PCTRS (13) DVT prophylaxis Code(s): [id number] - (14) Diabetes mellitus type 2 in obese Code(s): E11.9 - TYPE 2 DIABETES MELLITUS WITHOUT COMPLICATIONS; E66.9 - OBESITY , UNSPECIFIED (15) Dilated bile duct Code(s): K83.8 - OTHER SPECIFIED DISEASES OF BILIARY TRACT (16) Diverticulosis large intestine w/o perforation or abscess w/bleeding Code(s): K57.31 - DVRTCLOS OF LG INT W/O PERFORATION OR ABSCESS W BLEEDING (17) Dyspnea Code(s): R06.00 - DYSPNEA, UNSPECIFIED Qualifiers: Dyspnea type: unspecified Qualified Code(s): R06.00 - Dyspnea, unspecified (18) Elevated d-dimer Code(s): R79.89 - OTHER SPECIFIED ABNORMAL FINDINGS OF BLOOD CHEMISTRY (19) Full code status Code(s): Z78.9 - OTHER SPECIFIED HEALTH STATUS (20) Gout Code(s): M10.9 - GOUT, UNSPECIFIED (21) Gout attack Code(s): M10.9 - GOUT, UNSPECIFIED (22) History of heart artery stent Code(s): Z95.5 - PRESENCE OF CORONARY ANGIOPLASTY IMPLANT AND GRAFT (23) Hyperkalemia Code(s): E87.5 - HYPERKALEMIA (24) Hyperlipidemia Code(s): E78.5 - HYPERLIPIDEMIA, UNSPECIFIED (25) Hypertension Code(s): I10 - ESSENTIAL (PRIMARY) HYPERTENSION (26) Hypervolemia Code(s): E87.70 - FLUID OVERLOAD, UNSPECIFIED Qualifiers: Hypervolemia type: unspecified Qualified Code(s): E87.70 - Fluid overload, unspecified (28) ICD (implantable cardioverter-defibrillator) in place Code(s): Z95.810 - PRESENCE OF AUTOMATIC (IMPLANTABLE) CARDIAC DEFIBRILLATOR (29) Ileus Code(s): K56.7 - ILEUS, UNSPECIFIED (30) Insomnia Code(s): G47.00 - INSOMNIA, UNSPECIFIED (31) Jaundice Code(s): R17 - UNSPECIFIED JAUNDICE (32) Knee effusion, left Code(s): M25.462 - EFFUSION, LEFT KNEE (33) Left arm numbness Code(s): R20.0 - ANESTHESIA OF SKIN (34) Left upper quadrant pain Code(s): R10.12 - LEFT UPPER QUADRANT PAIN (35) Myocardial infarct Code(s): I21.9 - ACUTE MYOCARDIAL INFARCTION, UNSPECIFIED (36) Neck muscle strain Code(s): S16.1XXA - STRAIN OF MUSCLE, FASCIA AND TENDON AT NECK LEVEL, INIT (37) Neck pain Code(s): M54.2 - CERVICALGIA (38) Pacemaker complications Code(s): T82.9XXA - UNSP COMP OF CARDIAC AND VASCULAR PROSTH DEV/GRFT, INIT (39) Polyarthritis Code(s): M13.0 - POLYARTHRITIS, UNSPECIFIED (40) Renal dysfunction Code(s): N28.9 - DISORDER OF KIDNEY AND URETER, UNSPECIFIED (41) Renal insufficiency Code(s): N28.9 - DISORDER OF KIDNEY AND URETER, UNSPECIFIED (42) Severe left ventricular systolic dysfunction Code(s): I51.9 - HEART DISEASE, UNSPECIFIED (43) Shortness of breath Code(s): R06.02 - SHORTNESS OF BREATH (44) Systolic CHF Code(s): I50.20 - UNSPECIFIED SYSTOLIC (CONGESTIVE) HEART FAILURE (45) Weight loss, unintentional Code(s): R63.4 - ABNORMAL WEIGHT LOSS Assessment/Plan - Problems (1) Acute on chronic systolic and diastolic heart failure, NYHA class 1 Assessment/Plan: Carvedilol reduced to 3.125 mg daily due to hypotension, ?change in mental status. ACEI, spironolactone held due to renal dysfunction. F/u BUN/Cr, electrolytes, daily wt, Is and Os. 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 (2) Weakness Code(s): R53.1 - WEAKNESS (3) Acute on chronic renal insufficiency Assessment/Plan: f/u with neprhologist. Code(s): N28.9 - DISORDER OF KIDNEY AND URETER, UNSPECIFIED; N18.9 - CHRONIC KIDNEY DISEASE, UNSPECIFIED (4) COPD (chronic obstructive pulmonary disease) Code(s): J44.9 - CHRONIC OBSTRUCTIVE PULMONARY DISEASE, UNSPECIFIED (5) Gout Code(s): M10.9 - GOUT, UNSPECIFIED (6) History of heart artery stent Assessment/Plan: LDL cholesterol 57. On beta uli. Code(s): Z95.5 - PRESENCE OF CORONARY ANGIOPLASTY IMPLANT AND GRAFT (7) Hyperlipidemia Code(s): E78.5 - HYPERLIPIDEMIA, UNSPECIFIED (8) Hypertension Code(s): I10 - ESSENTIAL (PRIMARY) HYPERTENSION (9) ICD (implantable cardioverter-defibrillator) in place Code(s): Z95.810 - PRESENCE OF AUTOMATIC (IMPLANTABLE) CARDIAC DEFIBRILLATOR
--- NOTE | 2018-07-21 14:22 | PN ---
Progress Note (short form) - Note Progress Note: Vascular Surgery Pt seen and examined. Bl lower ext warm, with palpable pulses. Motor and sensory intact. BL lower ext pitting edema. Left foot with discoloration of toes. 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 Pt on argatroban. Will monitor toes. Chito French DO
--- NOTE | 2018-07-21 16:50 | PN ---
Teaching Attending Note Name of Resident: Elmo Wheeler ATTENDING PHYSICIAN STATEMENT I saw and evaluated the patient. I reviewed the resident's note and discussed the case with the resident. I agree with the resident's findings and plan as documented. SUBJECTIVE: No events over night. OBJECTIVE: NAD, lethargic, responds to verbal commands CV: RRR, no MRG Lungs: CTAB Abd: sfot, ND, NT, fading bruises in periubilical area Ext: edema on both feet . 2+ . L foot toes have purple discoloration. Dp 1+ b/ l. warm feet. A/P: 77 y/o man with h/o HTN, HLP, systolic CHF, COPD, CKD, CAD s/p stenting, MT, ICD , gout, DM, and other medical problems who presented with general weakness. 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 3- Echymosis and petechiae 4- CKD 5- Possible liver disease 6- DM 7- h/o diastolic CHF 8- Thrombocytopenia 9- Discolored toes 10- Euthyroid sick syndrome plan : - lab called regarding factors V, VIII, and X . awaiting an update - cont argatroban - follow Serotonin assay - cont to hold all heparin products - decision on coumadin depends on confirmatory testing - monitor renal function - Monitor BP closely - cont coreg - cont SSI - monitor plt count - L IJ in place and working appropriately - restrains for patient safety . 1:1 as well dispo: HLOC
--- NOTE | 2018-07-21 18:19 | PN ---
Progress Note (short form) - Note Progress Note: Renal follow up for ELLIOTT Pt seen and examined at the bedside awake but confused restraints in place no overnight events Vital Signs Temperature 98.9 F 07/19/18 10:00 Pulse Rate 83 07/19/18 10:00 Respiratory Rate 18 07/19/18 10:00 Blood Pressure 101/67 07/19/18 10:00 O2 Sat by Pulse Oximetry (%) 100 07/18/18 21:00 Intake & Output 07/16/18 07/17/18 07/18/18 07/19/18 23:59 23:59 23:59 23:59 Intake Total 1769 464 56 1.2 Output Total 1500 1200 450 Balance 269 -456 -394 1.2 Weight 89.386 kg 89.953 kg 89.584 kg 91.229 kg NAD, confused Dec BS soft NT/ND + LE edema no bladder distension CBC, BMP 07/21/18 06:00 07/21/18 06:00 Current Medications Acetaminophen (Tylenol -) 650 mg PO Q4H PRN PRN Reason: PAIN LEVEL 6-10 Last Admin: 07/14/18 17:24 Dose: 650 mg Atorvastatin Calcium (Lipitor -) 40 mg PO HS [facility] Last Admin: 07/20/18 21:36 Dose: 40 mg Budesonide/Formoterol Fumarate (Symbicort 160/4.5mcg -) 2 puff IH BID [facility] Last Admin: 07/21/18 11:58 Dose: 2 puff Carvedilol (Coreg -) 3.125 mg PO BID [facility] Last Admin: 07/21/18 11:58 Dose: 3.125 mg Cholecalciferol (Vitamin D3 -) 5,000 unit PO DAILY [facility] Last Admin: 07/21/18 11:57 Dose: 5,000 unit Febuxostat (Uloric -) 40 mg PO DAILY [facility] Last Admin: 07/21/18 11:59 Dose: 40 mg Argatroban 250,000 mcg/ Sodium (Chloride) 250 mls @ 1.2 mls/hr IVPB TITR [facility]; Protocol Last Admin: 07/21/18 05:10 Dose: Not Given Insulin Aspart (Novolog Vial Sliding Scale -) 1 vial SQ ACHS [facility]; Protocol Last Admin: 07/21/18 17:34 Dose: 4 units Olanzapine (Zyprexa -) 2.5 mg PO HS [facility] Last Admin: 07/20/18 21:35 Dose: 2.5 mg Polyethylene Glycol (Miralax (For Daily Use) -) 17 gm PO DAILY PRN PRN Reason: CONSTIPATION Last Admin: 07/11/18 10:26 Dose: 17 grams Sodium Bicarbonate (Sodium Bicarbonate -) 650 mg PO BID [facility] Last Admin: 07/21/18 11:58 Dose: 650 mg 77 year old gentleman with hx of CKD stage 3 (baseline Cr 1.8-2), CAD s/p PCI, CHF with very low LVEF, hyperlipidemia, hypertension, AICD placement, DM, COPD who presented from Dr. Connolly's office with hypotension and found to have increasing confusion and ELLIOTT. #ELLIOTT on CKD due to volume depletion vs. HRS vs. Cardio-renal syndrome vs. renal injury in setting of DIC #Hypotension #Altered mental status r/o dementia vs. other cause #DM #Hypertension #CHF #metabolic acidosis with respiratory compensation Cr slowly improving, ? dlution as pt with LE edema can consider starting small dose diuretics if edema or congestive changes on CXR worsen despite BUN being 100, do not suspect that mental status changes are due to uremia continue anticoagulation as per Heme for DIC Renal vein doppler showed no thrombosis oral intake as tolerated supportive care prognosis is guarded at this time Mikhail Ling DO
--- NOTE | 2018-07-21 19:47 | PN ---
Progress Note (short form) - Note Progress Note: Patient seen and examined Sitter describes quieter day Ate some during day Last Vital Signs Temp Pulse Resp BP Pulse Ox 97.6 F 83 20 89/63 L 100 07/21/18 17:12 07/21/18 17:12 07/21/18 17:12 07/21/18 17:12 07/18/18 21:00 HEENT: SHEREE, EOM Intact Cor: RSR, No murmurs, No gallops Lungs: Clear to P&A Abd: Soft, Normal bowel sounds, No organomegaly Ext:tender left toes less demarcated and warmer than yesterday ( still cool however) Skin: No rashes, Integument intact CBC, BMP 07/21/18 06:00 07/21/18 06:00 Current Medications Generic Name Dose Route Start Last Admin Trade Name Freq PRN Reason Stop Dose Admin Acetaminophen 650 mg 07/14/18 16:18 07/14/18 17:24 Tylenol - PO 650 mg Q4H PRN Administration PAIN LEVEL 6-10 Atorvastatin Calcium 40 mg 07/15/18 22:00 07/20/18 21:36 Lipitor - PO 40 mg HS [facility] Administration Budesonide/Formoterol Fumarate 2 puff 07/01/18 10:00 07/21/18 11:58 Symbicort 160/4.5mcg - IH 2 puff BID [facility] Administration Carvedilol 3.125 mg 07/09/18 22:15 07/21/18 11:58 Coreg - PO 3.125 mg BID [facility] Administration Cholecalciferol 5,000 unit 07/07/18 16:30 07/21/18 11:57 Vitamin D3 - PO 5,000 unit DAILY [facility] Administration Febuxostat 40 mg 07/01/18 12:00 07/21/18 11:59 Uloric - PO 40 mg DAILY [facility] Administration Argatroban 250,000 mcg/ Sodium 250 mls @ 1.2 mls/hr 07/16/18 21:45 07/21/18 05:10 Chloride IVPB Not Given TITR [facility] Protocol 0.225 MCG/KG/MIN Insulin Aspart 1 vial 07/01/18 07:00 07/21/18 17:34 Novolog Vial Sliding Scale - SQ 4 units ACHS [facility] Administration Protocol Olanzapine 2.5 mg 07/09/18 22:00 07/20/18 21:35 Zyprexa - PO 2.5 mg HS [facility] Administration Polyethylene Glycol 17 gm 07/10/18 13:04 07/11/18 10:26 Miralax (For Daily Use) - PO 17 grams DAILY PRN Administration CONSTIPATION Sodium Bicarbonate 650 mg 07/03/18 10:00 07/21/18 11:58 Sodium Bicarbonate - PO 650 mg BID [facility] Administration Impression: Coagulopathy ELLIOTT Liver dysfunction a/c Plan: no new lab data continue with argatroban -therapeutic range
[2018-07-21] MEDS: OLANZapine 2.5 MG TABLET PO SCH (22:00)
[2018-07-21] MEDS: ATORVASTATIN CA 40 MG TABLET (FP) PO SCH (22:00)
[2018-07-22] MEDS: ARGATROBAN - 250,000 MCG in SODIUM CHLORIDE 247.5 ML IVPB SCH ×3 (04:38→22:41)
[2018-07-22] MEDS: INSULIN SLIDING SCALE (NOVOLOG) 1 VIAL SQ SCH ×4 (06:39→22:43)
--- NOTE | 2018-07-22 07:10 | PN ---
Physical Exam: SUBJECTIVE: Patient seen and examined at bedside. no acute events overnight. 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 1:1 and restraints on board as pt is at risk of harming himself and noted to be pulling at IVs and other equipment. denies cp, sob, fever, n/v/d. Pt cont to take his clothes off and lays in bed naked. In general confused/forgetful, fatigued, lethargic, however more alert today. Family wants PEG OBJECTIVE: Vital Signs Period Temp Pulse Resp BP Sys/Robbins Pulse Ox Last 24 Hr 97.6 F-97.7 F 75-93 18-22 89-106/61-69 GENERAL:AOX 1-2, NAD. In general confused/forgetful, fatigued, lethargic, however more alert today. cont to take his clothes off and lays in bed naked. HEENT: NCAT, PERRLA, EOMI, MMM, +L IJ LUNGS: CTAB HEART: RRR, no murmurs heard, defribilator in LUQ ABDOMEN: Soft, NTND, normoactive bowel sounds, no guarding, no rebound, no masses. fading purple ecchymosis in umbilical region along w/ petechia along abdomen, chest and legs, improving and almost resolved LOWER EXTREMITIES: warm, well-perfused. No calf tenderness. 2+ pitting edema. b /l foot/ankle swelling and erythema, TTP. L toes are cold dusky blue/purple color, feet are warm, DP pulses are palpable NEUROLOGICAL: Cranial nerves II-XII intact. PSYCHIATRIC: Cooperative. SKIN: Warm, dry, normal turgor, no rashes or lesions noted Laboratory Results - last 24 hr 07/21/18 07/21/18 07/21/18 06:00 06:00 06:00 WBC 7.5 RBC 3.64 L Hgb 10.8 L Hct 33.3 L MCV 91.7 MCH 29.6 MCHC 32.3 RDW 16.9 H Plt Count 81 L MPV 9.7 Absolute Neuts (auto) 6.2 Neutrophils % 83.3 H Lymphocytes % 10.3 Monocytes % 5.2 Eosinophils % 1.1 Basophils % 0.1 Nucleated RBC % 0 PT with INR 18.80 H INR 1.59 H PTT (Actin FS) Sodium 141 Potassium 4.2 Chloride 110 H Carbon Dioxide 23 Anion Gap 8 BUN 110.2 H* Creatinine 2.2 H Est GFR (CKD-EPI)AfAm 32.52 Est GFR (CKD-EPI)NonAf 28.06 POC Glucometer Random Glucose 145 H Calcium 7.6 L Phosphorus 3.4 Magnesium 2.7 H Total Bilirubin 2.6 H AST 63 H ALT 47 Alkaline Phosphatase 103 Total Protein 5.2 L Albumin 2.1 L 07/21/18 07/21/18 07/21/18 12:04 12:50 17:30 WBC RBC Hgb Hct MCV MCH MCHC RDW Plt Count MPV Absolute Neuts (auto) Neutrophils % Lymphocytes % Monocytes % Eosinophils % Basophils % Nucleated RBC % PT with INR INR PTT (Actin FS) 58.2 H Sodium Potassium Chloride Carbon Dioxide Anion Gap BUN Creatinine Est GFR (CKD-EPI)AfAm Est GFR (CKD-EPI)NonAf POC Glucometer 204 211 Random Glucose Calcium Phosphorus Magnesium Total Bilirubin AST ALT Alkaline Phosphatase Total Protein Albumin 07/21/18 07/22/18 21:12 06:13 WBC RBC Hgb Hct MCV MCH MCHC RDW Plt Count MPV Absolute Neuts (auto) Neutrophils % Lymphocytes % Monocytes % Eosinophils % Basophils % Nucleated RBC % PT with INR INR PTT (Actin FS) Sodium Potassium Chloride Carbon Dioxide Anion Gap BUN Creatinine Est GFR (CKD-EPI)AfAm Est GFR (CKD-EPI)NonAf POC Glucometer 198 142 Random Glucose Calcium Phosphorus Magnesium Total Bilirubin AST ALT Alkaline Phosphatase Total Protein Albumin Active Medications Generic Name Dose Route Start Last Admin Trade Name Freq PRN Reason Stop Dose Admin Acetaminophen 650 mg 07/14/18 16:18 07/14/18 17:24 Tylenol - PO 650 mg Q4H PRN Administration PAIN LEVEL 6-10 Atorvastatin Calcium 40 mg 07/15/18 22:00 07/21/18 22:00 Lipitor - PO 40 mg HS [facility] Administration Budesonide/Formoterol Fumarate 2 puff 07/01/18 10:00 07/21/18 22:00 Symbicort 160/4.5mcg - IH 2 puff BID [facility] Administration Carvedilol 3.125 mg 07/09/18 22:15 07/21/18 22:00 Coreg - PO 3.125 mg BID [facility] Administration Cholecalciferol 5,000 unit 07/07/18 16:30 07/21/18 11:57 Vitamin D3 - PO 5,000 unit DAILY [facility] Administration Febuxostat 40 mg 07/01/18 12:00 07/21/18 11:59 Uloric - PO 40 mg DAILY [facility] Administration Argatroban 250,000 mcg/ Sodium 250 mls @ 1.2 mls/hr 07/16/18 21:45 07/22/18 04:38 Chloride IVPB Not Given TITR [facility] Protocol 0.225 MCG/KG/MIN Insulin Aspart 1 vial 07/01/18 07:00 07/22/18 06:39 Novolog Vial Sliding Scale - SQ Not Given ACHS [facility] Protocol Olanzapine 2.5 mg 07/09/18 22:00 07/21/18 22:00 Zyprexa - PO 2.5 mg HS [facility] Administration Polyethylene Glycol 17 gm 07/10/18 13:04 07/11/18 10:26 Miralax (For Daily Use) - PO 17 grams DAILY PRN Administration CONSTIPATION Sodium Bicarbonate 650 mg 07/03/18 10:00 07/21/18 22:00 Sodium Bicarbonate - PO 650 mg BID [facility] Administration [id number] CT/ABDOMEN & PELVIS CT W/O CONTR HISTORY PROVIDED: Rule out bleed TECHNIQUE: Sequential axial images were obtained from the domes of the diaphragm through the symphysis pubis. The study is markedly limited without the use of any contrast material. There are bilateral pleural effusions, right greater than left. The heart is enlarged. No acute infiltrates are identified. There is a trace amount of ascites about the liver. The liver, spleen, pancreas, adrenal glands and kidneys demonstrate no gross abnormalities. Small renal cysts are present bilaterally. The gallbladder has been removed. There is no evidence of intra-abdominal or retroperitoneal lymphadenopathy or fluid collections. There is no evidence of pneumoperitoneum, bowel obstruction or intra-abdominal abscess. There is no CT evidence of acute appendicitis There is extensive diverticulosis coli with no evidence of acute diverticulitis. Examination of the pelvis demonstrates no evidence of pelvic masses, fluid collections or lymphadenopathy. The prostate gland is enlarged measuring 6.2 x 5.4 x 5.5 cm. There is no evidence of acute bony pathology. IMPRESSION: 1. Bilateral pleural effusions. 2. Trace ascites. 3. Extensive diverticulosis coli. 4. Prostatic enlargement. 5. No acute pathology within the abdomen or pelvis. Please see above discussion. [id number] RAD/ANKLE & FOOT-LEFT* [id number] RAD/ANKLE & FOOT-RIGHT* HISTORY PROVIDED: Pain and swelling AP, oblique and lateral projections of both feet and ankles reveals no evidence of fracture, dislocation or acute bone or joint abnormalities. Mild degenerative changes are present about the small joints of the feet and ankles. There is a well-circumscribed lytic lesion within the left navicular bone. This has a benign appearance and is not significant change since a prior study of 11/29/2015. There is also a small spur along the plantar surface of the left calcaneus. Mild soft tissue swelling is seen about the left lateral malleolus. IMPRESSION: Mild degenerative arthritis with no fracture or acute bone or joint abnormalities. Please see above discussion. Reported By: Lance Pitts MD 07/14/18 1522 [id number] US/DUPLEX VASCUL US-2LEGS [id number] US/DUPLEX ART. LEGS- LIMITED US BILATERAL LOWER EXTREMITY VENOUS ULTRASOUND Clinical information given: evaluate for DVT The exam was performed utilizing compression, grayscale, color flow and doppler sonography. There is no sonographic evidence of deep vein thrombosis. If there is clinical concern for possible isolated calf DVT or if there is a clinical diagnosis of uncomplicated superficial thrombophlebitis, then correlation with close follow up sonography is suggested. IMPRESSION: No DVT is identified involving either leg. Please see above. LEFT LOWER EXTREMITY ARTERIAL DOPPLER ULTRASOUND Clinical information: evaluate for arterial thrombus; cold left big toe with discoloration The exam was performed utilizing grayscale and Doppler sonography. Decreased monophasic flow is seen within the left posterior tibial artery. Exam coverage does not include the anterior tibial or peroneal arteries. Unremarkable triphasic flow is noted within the common femoral, superficial femoral and popliteal arteries. IMPRESSION: Decreased monophasic flow is seen within the left posterior tibial artery. Reported By: Bhavik Sargent MD 07/14/182007-0098 RAD/BONE SURVEY (METASTATIC) Bone survey: Check for lytic lesions Chest: AP view of the chest reveals a large heart, unfolded aorta, multilead pacemaker, central congestive changes with questionable perihilar infiltrates, sharp angles and grossly intact bones with no sign of lytic or blastic changes. Skull: 2 views of the skull reveal no sign of blastic or lytic changes. There is demineralization of the clinoids. Lateral cervical spine: A single lateral view shows straightening with degenerative changes and wedging. Is no sign of blastic or lytic changes. There may be anterior clips or calcification in the prevertebral soft tissues by the upper cervical spine. Thoracic spine: AP and lateral views of the thoracic spine reveal scoliosis with minimal degenerative changes and no sign of blastic or lytic findings. There is a normal thoracic kyphosis. Lumbar spine: AP and lateral views are obscured in part by overlying contrast- filled loops of bowel. This is an incomplete evaluation. Blastic or lytic changes are not seen but is no sign of a gross fracture or subluxation. There is some straightening of the lumbar area. Pelvis: Single view of the pelvis is obscured in part by overlying contrast- filled loops of colon. What is seen shows no sign of blastic or lytic changes but this is an incomplete evaluation. Bilateral hips, femurs and knees: Blastic or lytic changes are not seen but is no sign of fracture or subluxation. Significant arthritic changes are not seen in the hips or knees. Right and left humerus: There is no sign of blastic or lytic changes. No sign of fracture or subluxation. Overall impression: No sign of blastic or lytic changes. No sign of a fracture. Limited visualization of the lumbar spine and pelvis due to overlying contrast filled loops of bowel. An AP view of the cervical spine has not been submitted. Correlation recommended. Reported By: Viktor Griffin MD 07/15/18 1737 [id number] US/DOPPLER,ABDOM ORGAN,COMP US [id number] US/KIDNEY / RENAL US Rule out renal vein thrombosis. Renal and Doppler ultrasound upper abdomen ultrasound dated renal ultrasound dated 06/17/2018 The right kidney measures 7.9 cm in sagittal length with a simple cyst measuring 2.1 x 1.8 cm. Another adjacent tiny cyst is present anteriorly measuring 7 x 6 mm. There is normal color and duplex evaluation of the right renal vein. Left kidney measures 9 cm in sagittal length with an upper pole partially exophytic simple cyst measuring 2.7 x 2.5 cm. Normal duplex evaluation of the left renal vein. There is no evidence of hydronephrosis or renal stones, bilaterally. Visualized portion of the liver appears unremarkable. Normal duplex evaluation of the inferior vena cava IMPRESSION: Bilateral renal simple cysts, as described above without evidence of gross renal stones or hydronephrosis. Patent right and left renal vein as well as a patent inferior vena cava. Reported By: Dallas Dutta MD 07/17/18 1013 ASSESSMENT/PLAN: 77 y/o M PMH HTN, HLD, LV dysfunction/CHF, CKD 4, CAD s/p stents, MN s/p defribilator, gout, DM, COPD due to smoking history?, who presented from Dr. Hood office with Weakness, poor PO intake, hypotension and found to have increasing confusion and ELLIOTT. There appears to have been a miscommunication between what local [place] truck driver recommended and what the daughter gave. It appears as though the daughter continued to give the Lasix even though the patient was not supposed to be doing so. daughter has been concerned for a while about her father having dementia, on last admission pt was referred to Dr Munoz for an outpt dementia eval #? Metabolic encephalopathy vs suspected worsening dementia, poor PO intake. -Consulted NeurologyTammy: suspects likely underlying Alzheimer vs frontotemporal dementia with superimposed metabolic encephalopathy with generalized weakness, poor cardiac status likely contributory as well. per neuro , no focality to suggest new cerebral ischemic event, no evidence of seizures, meningitis, etc -Dr. Connolly consulted -CT head w/o acute changes -MRI is not an option since has a PPM/defibrilator -encourage PO hydration, s/p clinimix by nephro given his worsening dementia state and poor po intake -ammonia fluctuating but unlikely to be contributing to AMS, no need for lactulose, GI recs appreciated -cont to hold gabapentin to avoid worsening confusion, neuro recs appreciated -Vit B12, Folic acid elevated -ucx, RPR neg -psych consulted -c/w zyprexa per psych -family has decided for PEG. -IR consulted for PEG, will ideally need INR<1.5 and plt >100 -hotel reservation agent consulted, on calorie count #new petechiae and abdominal echymosis w/ elevated INR 1.79 (not on AC) and thrombocytopenia - unclear etiology. 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 H/H remains stable at baseline. no obvious source of bleed. possibly 2/2 liver disease/ injury and c/b vit K depletion 2/2 poor po intake/malabsorbtion as well as HIT. Also noted w/ low fibrinogen, there may be component of mild chronic DIC? 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 nephro and heme recs appreciated, elevated BUN may be contributing but unclear at this time as levels of 100 may cause platelet dsfx but unclear if this is what is causing his bruising. -heme/onc consulted, [place] -corrected retic index is low indicating inadequate marrow response -CT A/P reviewed above, No acute pathology within the abdomen or pelvis -LDH, haptoglobin nl -FOBT neg -hold ASA and SQH -P and C ANCA, HERB neg -No evidence of Lupus anticoagulant -Mixing study: PT is elevated and PTT is nl, also Factor VII percentage is low. 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 spoke w/ heme despite pt pulling out IJ, cannot switch to SQ agent as renal fnx is bad. will need to cont w/ restraints and 1:1 observation. will hold off starting coumadin w/ IV agent until APRIL comes back confirming HIT. # b/l foot/ankle swelling and erythema, TTP. L toes are cold dusky blue/purple color, DP pulses are palpable and heard on doppler - doesnt look infx or gout. likely represent emboli 2/2 chronic DIC? vs HIT, as discussed above b/l foot XR to r/o frx reviewed above duplex neg DVT arterial reviewd above, Decreased monophasic flow within left posterior tibial artery. c/w Lipitor 40 HS vascular consult, Manolo mechanical restraints #ELLIOTT on CKD stage4 2/2 volume depletion, baseline Cr is 1.8-2 - 3...2.8...3...2.6...2.4...2.2, poor po intake and was not receiving clinimix or IVF due to pulling his IVs - improving w/ encouragement of PO intake, on calorie count -nephro consulted, Sushil -UA, MM immuno w/u neg -FeUrea was 38.5% indicating slight tubular dysfunction -hold ACEi and diuretics for now -encourage PO hydration -c/w PO bicarbonate for metabolic acidosis -metastatic series reviewed above, neg -Renal U/S reviewed above, showed no thrombosis #CHF with Severe LV dysfunction: not likely an acute issue -EKG was essentially unchanged since prior -cardio consult, Evy for optimization of HF meds, pt noted here w/ slightly low BP -carvedilol resumed at bid per cardio -hold ASA in setting of petechia and echymosis #Acute Transaminitis w/ elevated INR 1.79: likely 2/2 hepatic congestion 2/2 CHF w/ severe low EF, however component of ischemic injury may be present in setting of hypotension in the setting of volume depletion. The patient is not on any significant hepatotoxic medications. GI consulted, Dr. Camacho, and don' t think that he has hepatic encephalopathy or cirhosis given the lack of splenomegaly and normal liver size. - LFTs downtrending -hepatitis panel unremarkable -Ultrasound of the RUQ: fatty liver vs hepatocellular disease -restart lipitor at higher dose of 40 given embolic events and decreased vascular flow as mentioned above -No need for rifaximin and lactulose and tx of CHF will benefit the liver and should improve the LFTs, GI recs appreciated -Repeat colonoscopy in 2021 oupt #Hx of gout with elevated Uric acid - no signs of gout c/w home febuxostat #elevated TSH, and FT4, -as per cant hooker most likely sick euthyroid. -will follow with Dr. Castaneda as an outpatient, for further w/u #DM: chronic -hold diabetic meds -ISS -BGM ACHS #CAD: chronic -hold ASA in setting of petechia and echymosis #FEN -encourage PO hydration -replete prn -diabetic/sodium diet, on calorie count #Prophylaxis -c/w Argabotran gtt for +HIT Ab -scd b/l #Dispo -med surg -pt has bed at [facility], however holding off on dc until medically optimized -family has decided for PEG. will need to optimize INR and plt Visit type - Emergency Visit Emergency Visit: Yes ED Registration Date: 07/01/18 Care time: The patient presented to the Emergency Department on the above date and was hospitalized for further evaluation of their emergent condition. - New Patient This patient is new to me today: Yes Date on this admission: 07/22/18 - Critical Care Critical Care patient: No
[2018-07-22 09:17] LABS: ALBUMIN 2.2 g/dl (3.4-5.0); BILIRUBIN,TOTAL 3.6 mg/dL (0.2-1); BLOOD UREA NITROGEN 103.2 mg/dL (7-18); CALCIUM 7.6 mg/dL (8.5-10.1); CREATININE 2.2 mg/dL (0.55-1.3); MAGNESIUM 2.8 mg/dL (1.8-2.4); PHOSPHOROUS 3.2 mg/dL (2.5-4.9); POTASSIUM 4.2 mmol/L (3.5-5.1); TOT PROT 5.4 g/dl (6.4-8.2)
[2018-07-22 09:35] LABS: BASO % 0.1 % (0-2.0); EOS % 0.9 % (0-4.5); HEMATOCRIT 33.6 % (35.4-49); HEMOGLOBIN 10.6 GM/dL (11.7-16.9); MCH 28.7 pg (25.7-33.7); MCHC 31.5 g/dl (32.0-35.9); MEAN CELL VOLUME 91.1 fl (80-96); MEAN PLT VOLUME 9.3 fl (7.5-11.1); MONO % 5.1 % (3.8-10.2); NEUT % 81.9 % (42.8-82.8); RBC 3.69 M/mm3 (4.00-5.60); WHITE BLOOD COUNT 7.8 K/mm3 (4.0-10.0)
[2018-07-22 09:38] LABS: PLATELET COUNT 95 K/MM3 (134-434)
[2018-07-22] MEDS: SODIUM BICARBONATE 650 MG TABLET PO SCH ×2 (10:46→22:40)
[2018-07-22] MEDS: CHOLECALCIFEROL (VIT D3) 1,000 UNIT (25 MCG) TABLET PO SCH (10:46)
[2018-07-22 10:47] LABS: INR 1.48 (0.83-1.09); PROTHROMBIN TIME (PATIENT) 17.5 SEC (9.7-13.0)
[2018-07-22] MEDS: CARVEDILOL 3.125 MG TABLET (FP) PO SCH ×2 (10:47→22:40)
[2018-07-22] MEDS: FEBUXOSTAT 40 MG TAB PO SCH (10:48)
[2018-07-22] MEDS: BUDESONIDE/FORMETEROL FUMARATE 160/4.5 mcg INHALER IH SCH ×2 (10:48→22:44)
[2018-07-22] MEDS: POLYETHYLENE GLYCOL 3350 119 GM BTL PO PRN (10:51)
--- NOTE | 2018-07-22 11:47 | EKG ---
Test Reason : Blood Pressure : / mmHG Vent. Rate : 086 BPM Atrial Rate : 086 BPM P-R Int : 204 ms QRS Dur : 172 ms QT Int : 450 ms P-R-T Axes : 057 -37 058 degrees QTc Int : 538 ms Atrial-sensed ventricular-paced rhythm Biventricular pacemaker detected ABNORMAL ECG WHEN COMPARED WITH ECG OF 04-JUL-2018 11:00, VENT. RATE HAS DECREASED BY 17 BPM Confirmed by INES GUILLEN, GODWIN ([id number]) on 07/22/2018 11:46:53 AM Referred By: ARTUR RASHID Confirmed By:GODWIN CHACON MD
--- NOTE | 2018-07-22 13:34 | PN ---
Teaching Attending Note Name of Resident: Elmo Wheeler ATTENDING PHYSICIAN STATEMENT I saw and evaluated the patient. I reviewed the resident's note and discussed the case with the resident. I agree with the resident's findings and plan as documented. SUBJECTIVE: No fever or chills. he denies pain or SOB. No events over night OBJECTIVE: NAD, lethargic,but arousable and answers questions CV: RRR, no MRG Lungs: CTAB Abd: soft, ND, NT, fading bruises in periubilical area. Nl BS Ext: edema on both feet . 2+ . L foot toes have purple discoloration. Dp 1+ b/ l. warm feet. A/P: 77 y/o man with h/o HTN, HLP, systolic CHF, COPD, CKD, CAD s/p stenting, SC, ICD , gout, DM, and other medical problems who presented with general weakness. 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 3- Echymosis and petechiae 4- CKD 5- Possible liver disease 6- DM 7- h/o diastolic CHF 8- Thrombocytopenia 9- Discolored toes 10- Euthyroid sick syndrome plan : - Factors V, VIII, and X are still pending - cont argatroban - follow Serotonin assay - cont to hold all heparin products - decision on coumadin depends on confirmatory testing - monitor renal function . - may diurese if edema worsens. cxray reviewed - cont coreg - cont SSI - monitor plt count - restrains for patient safety . Cont 1:1 Dispo: HLOC
--- NOTE | 2018-07-22 16:22 | PN ---
Progress Note (short form) - Note Progress Note: Renal follow up for ELLIOTT Pt seen and examined at the bedside sleeping no overnight events awaiting for INR and plt counts to improve for PEG placement Vital Signs Temperature 97.3 F L 07/22/18 14:55 Pulse Rate 77 07/22/18 14:55 Respiratory Rate 18 07/22/18 14:55 Blood Pressure 113/63 07/22/18 14:55 O2 Sat by Pulse Oximetry (%) 100 07/18/18 21:00 Intake & Output 07/19/18 07/20/18 07/21/18 07/22/18 23:59 23:59 23:59 23:59 Intake Total 921.2 321.4 1132.0 380.7 Output Total 920 299 5798 550 Balance 301.2 -478.6 -268.0 -169.3 Weight 91.229 kg 91.58 kg 90.855 kg 92.896 kg Dec BS soft NT/ND + LE edema no bladder distension CBC, BMP 07/22/18 08:00 07/22/18 08:00 Current Medications Acetaminophen (Tylenol -) 650 mg PO Q4H PRN PRN Reason: PAIN LEVEL 6-10 Last Admin: 07/14/18 17:24 Dose: 650 mg Atorvastatin Calcium (Lipitor -) 40 mg PO HS [facility] Last Admin: 07/21/18 22:00 Dose: 40 mg Budesonide/Formoterol Fumarate (Symbicort 160/4.5mcg -) 2 puff IH BID [facility] Last Admin: 07/22/18 10:48 Dose: 2 puff Carvedilol (Coreg -) 3.125 mg PO BID [facility] Last Admin: 07/22/18 10:47 Dose: Not Given Cholecalciferol (Vitamin D3 -) 5,000 unit PO DAILY [facility] Last Admin: 07/22/18 10:46 Dose: 5,000 unit Febuxostat (Uloric -) 40 mg PO DAILY [facility] Last Admin: 07/22/18 10:48 Dose: 40 mg Argatroban 250,000 mcg/ Sodium (Chloride) 250 mls @ 1.2 mls/hr IVPB TITR [facility]; Protocol Last Admin: 07/22/18 14:03 Dose: 0.01 mcg/kg/min, 0.1 mls/hr Insulin Aspart (Novolog Vial Sliding Scale -) 1 vial SQ ACHS [facility]; Protocol Last Admin: 07/22/18 12:10 Dose: 4 units Olanzapine (Zyprexa -) 2.5 mg PO HS [facility] Last Admin: 07/21/18 22:00 Dose: 2.5 mg Polyethylene Glycol (Miralax (For Daily Use) -) 17 gm PO DAILY PRN PRN Reason: CONSTIPATION Last Admin: 07/22/18 10:51 Dose: 17 grams Sodium Bicarbonate (Sodium Bicarbonate -) 650 mg PO BID [facility] Last Admin: 07/22/18 10:46 Dose: 650 mg 77 year old gentleman with hx of CKD stage 3 (baseline Cr 1.8-2), CAD s/p PCI, CHF with very low LVEF, hyperlipidemia, hypertension, AICD placement, DM, COPD who presented from Dr. Connolly's office with hypotension and found to have increasing confusion and ELLIOTT. #ELLIOTT on CKD due to volume depletion vs. HRS vs. Cardio-renal syndrome vs. renal injury in setting of DIC #Hypotension #Altered mental status r/o dementia vs. other cause #DM #Hypertension #CHF #metabolic acidosis with respiratory compensation Renal function slowly improving CXR w/o overt effusion, hold diuretics for now despite BUN being 100, do not suspect that mental status changes are due to uremia continue anticoagulation as per Heme for DIC Renal vein doppler showed no thrombosis oral intake as tolerated supportive care PEG placement pending prognosis is guarded at this time Mikhail Ling DO
--- NOTE | 2018-07-22 18:49 | PN ---
Progress Note (short form) - Note Progress Note: Patient lorie nd examined Purplish discoloration of toes bilaterally improved on the right Mildly confused Last Vital Signs Temp Pulse Resp BP Pulse Ox 97.5 F L 84 18 94/67 100 07/22/18 16:00 07/22/18 16:00 07/22/18 16:00 07/22/18 16:00 07/18/18 21:00 Cor: RSR, No murmurs, No gallops Lungs: Clear to P&A Abd: Soft, Normal bowel sounds, No organomegaly Ext:No significant edema abdominal wall rash --ecchymosis, fading Abnormal Lab Results 07/22/18 07/22/18 07/22/18 08:00 08:00 08:00 RBC 3.69 L Hgb 10.6 L Hct 33.6 L MCHC 31.5 L RDW 17.0 H Plt Count 95 L PT with INR 17.50 H INR 1.48 H PTT (Actin FS) BUN 103.2 H Creatinine 2.2 H Random Glucose 146 H Calcium 7.6 L Magnesium 2.8 H Total Bilirubin 3.6 H AST 63 H Total Protein 5.4 L Albumin 2.2 L 07/22/18 08:00 RBC Hgb Hct MCHC RDW Plt Count PT with INR INR PTT (Actin FS) 47.4 H BUN Creatinine Random Glucose Calcium Magnesium Total Bilirubin AST Total Protein Albumin Home Medication List Medication Instructions Recorded Confirmed Type Aspirin [ASA -] 81 mg PO DAILY 01/02/17 07/02/18 History Cholecalciferol (Vitamin D3) 5,000 unit PO WEEKLY 01/02/17 07/02/18 History [Vitamin D -] Febuxostat [Uloric] 40 mg PO DAILY 01/02/17 07/02/18 History Gabapentin 300 mg PO DAILY 01/02/17 07/02/18 History Glimepiride [Amaryl] 2 mg PO DAILY 01/02/17 07/02/18 History Lipitor 10 mg PO HS 01/02/17 07/02/18 History Carvedilol [Coreg -] 3.125 mg PO BID 06/17/18 07/02/18 History Active Medications Generic Name Dose Route Start Last Admin Trade Name Freq PRN Reason Stop Dose Admin Acetaminophen 650 mg 07/14/18 16:18 07/14/18 17:24 Tylenol - PO 650 mg Q4H PRN Administration PAIN LEVEL 6-10 Atorvastatin Calcium 40 mg 07/15/18 22:00 07/21/18 22:00 Lipitor - PO 40 mg HS CLIVE Administration Budesonide/Formoterol Fumarate 2 puff 07/01/18 10:00 07/22/18 10:48 Symbicort 160/4.5mcg - IH 2 puff BID CLIVE Administration Carvedilol 3.125 mg 07/09/18 22:15 07/22/18 10:47 Coreg - PO Not Given BID CLIVE Cholecalciferol 5,000 unit 07/07/18 16:30 07/22/18 10:46 Vitamin D3 - PO 5,000 unit DAILY CLIVE Administration Febuxostat 40 mg 07/01/18 12:00 07/22/18 10:48 Uloric - PO 40 mg DAILY CLIVE Administration Argatroban 250,000 mcg/ Sodium 250 mls @ 1.2 mls/hr 07/16/18 21:45 07/22/18 14:03 Chloride IVPB 0.01 mcg/kg/min TITR CLIVE 0.1 mls/hr Administration Protocol 0.225 MCG/KG/MIN Insulin Aspart 1 vial 07/01/18 07:00 07/22/18 16:54 Novolog Vial Sliding Scale - SQ 2 units ACHS CLIVE Administration Protocol Olanzapine 2.5 mg 07/09/18 22:00 07/21/18 22:00 Zyprexa - PO 2.5 mg HS CLIVE Administration Polyethylene Glycol 17 gm 07/10/18 13:04 07/22/18 10:51 Miralax (For Daily Use) - PO 17 grams DAILY PRN Administration CONSTIPATION Sodium Bicarbonate 650 mg 07/03/18 10:00 07/22/18 10:46 Sodium Bicarbonate - PO 650 mg BID CLIVE Administration A/P 77 y/o patient with ELLIOTT/CKD, DM, HTN,HLD, ? baseline dementia, pacemaker, now with purplish discoloration of toes bilaterally Thrombocytopenia ? low grade DIC vs ? congestive hepatopathy purplish discoloration of toes HIT 1.8 APRIL negative --will need official report in chart will discuss with vascular and renal teams --? switch to eliquis ? lovenox has some baseline coagulopathy from CHF has ELLIOTT/CKD
[2018-07-22] MEDS: OLANZapine 2.5 MG TABLET PO SCH (22:40)
[2018-07-22] MEDS: ATORVASTATIN CA 40 MG TABLET (FP) PO SCH (22:40)
--- NOTE | 2018-07-23 06:28 | PN ---
Addendum entered and electronically signed by Elmo Wheeler, RESIDENT 15:24: spoke w/ daughter. she is in aggreeance w/ no PEG as pt mental status has improved. Original Note: Physical Exam: SUBJECTIVE: Patient seen and examined at bedside. no acute events overnight. 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 1:1 and restraints on board as pt is at risk of harming himself and noted to be pulling at IVs and other equipment. denies cp, sob, fever, n/v/d. More alert and oriented today,wants to go home. Family wants PEG APRIL is neg. per nephro and vascular ok to start eliquis. awaiting heme input OBJECTIVE: Vital Signs Period Temp Pulse Resp BP Sys/Robbins Pulse Ox Last 24 Hr 97.3 F-98.8 F 72-88 18-18 91-113/60-67 GENERAL:AOX 2, NAD. More alert and oriented today. HEENT: NCAT, PERRLA, EOMI, MMM, +L IJ LUNGS: CTAB HEART: RRR, no murmurs heard, defribilator in LUQ ABDOMEN: Soft, NTND, normoactive bowel sounds, no guarding, no rebound, no masses. fading purple ecchymosis in umbilical region along w/ petechia along abdomen, chest and legs, improving and almost resolved LOWER EXTREMITIES: warm, well-perfused. No calf tenderness. 2+ pitting edema. b /l foot/ankle swelling and erythema, TTP. L toes are cold dusky blue/purple color, feet are warm, DP pulses are palpable NEUROLOGICAL: Cranial nerves II-XII intact. PSYCHIATRIC: Cooperative. SKIN: Warm, dry, normal turgor, no rashes or lesions noted Laboratory Results - last 24 hr 07/22/18 07/22/18 07/22/18 08:00 08:00 08:00 WBC 7.8 RBC 3.69 L Hgb 10.6 L Hct 33.6 L MCV 91.1 MCH 28.7 MCHC 31.5 L RDW 17.0 H Plt Count 95 L MPV 9.3 Absolute Neuts (auto) 6.4 Neutrophils % 81.9 Lymphocytes % 12.0 Monocytes % 5.1 Eosinophils % 0.9 Basophils % 0.1 Nucleated RBC % 0 PT with INR 17.50 H INR 1.48 H PTT (Actin FS) Sodium 138 Potassium 4.2 Chloride 107 Carbon Dioxide 22 Anion Gap 10 BUN 103.2 H Creatinine 2.2 H Est GFR (CKD-EPI)AfAm 32.52 Est GFR (CKD-EPI)NonAf 28.06 POC Glucometer Random Glucose 146 H Calcium 7.6 L Phosphorus 3.2 Magnesium 2.8 H Total Bilirubin 3.6 H AST 63 H ALT 50 Alkaline Phosphatase 101 Total Protein 5.4 L Albumin 2.2 L 07/22/18 07/22/18 07/22/18 08:00 12:02 16:49 WBC RBC Hgb Hct MCV MCH MCHC RDW Plt Count MPV Absolute Neuts (auto) Neutrophils % Lymphocytes % Monocytes % Eosinophils % Basophils % Nucleated RBC % PT with INR INR PTT (Actin FS) 47.4 H Sodium Potassium Chloride Carbon Dioxide Anion Gap BUN Creatinine Est GFR (CKD-EPI)AfAm Est GFR (CKD-EPI)NonAf POC Glucometer 210 191 Random Glucose Calcium Phosphorus Magnesium Total Bilirubin AST ALT Alkaline Phosphatase Total Protein Albumin 07/22/18 07/22/18 07/23/18 20:58 21:30 06:10 WBC RBC Hgb Hct MCV MCH MCHC RDW Plt Count MPV Absolute Neuts (auto) Neutrophils % Lymphocytes % Monocytes % Eosinophils % Basophils % Nucleated RBC % PT with INR INR PTT (Actin FS) 27.9 Sodium Potassium Chloride Carbon Dioxide Anion Gap BUN Creatinine Est GFR (CKD-EPI)AfAm Est GFR (CKD-EPI)NonAf POC Glucometer 197 172 Random Glucose Calcium Phosphorus Magnesium Total Bilirubin AST ALT Alkaline Phosphatase Total Protein Albumin Active Medications Generic Name Dose Route Start Last Admin Trade Name Freq PRN Reason Stop Dose Admin Acetaminophen 650 mg 07/14/18 16:18 07/14/18 17:24 Tylenol - PO 650 mg Q4H PRN Administration PAIN LEVEL 6-10 Atorvastatin Calcium 40 mg 07/15/18 22:00 07/22/18 22:40 Lipitor - PO 40 mg HS CLIVE Administration Budesonide/Formoterol Fumarate 2 puff 07/01/18 10:00 07/22/18 22:44 Symbicort 160/4.5mcg - IH 2 puff BID CLIVE Administration Carvedilol 3.125 mg 07/09/18 22:15 07/22/18 22:40 Coreg - PO 3.125 mg BID CLIVE Administration Cholecalciferol 5,000 unit 07/07/18 16:30 07/22/18 10:46 Vitamin D3 - PO 5,000 unit DAILY CLIVE Administration Febuxostat 40 mg 07/01/18 12:00 07/22/18 10:48 Uloric - PO 40 mg DAILY CLIVE Administration Argatroban 250,000 mcg/ Sodium 250 mls @ 1.2 mls/hr 07/16/18 21:45 07/22/18 22:41 Chloride IVPB Not Given TITR CLIVE Protocol 0.225 MCG/KG/MIN Insulin Aspart 1 vial 07/01/18 07:00 07/22/18 22:43 Novolog Vial Sliding Scale - SQ 2 units ACHS CLIVE Administration Protocol Olanzapine 2.5 mg 07/09/18 22:00 07/22/18 22:40 Zyprexa - PO 2.5 mg HS CLIVE Administration Polyethylene Glycol 17 gm 07/10/18 13:04 07/22/18 10:51 Miralax (For Daily Use) - PO 17 grams DAILY PRN Administration CONSTIPATION Sodium Bicarbonate 650 mg 07/03/18 10:00 07/22/18 22:40 Sodium Bicarbonate - PO 650 mg BID CLIVE Administration [id number] CT/ABDOMEN & PELVIS CT W/O CONTR HISTORY PROVIDED: Rule out bleed TECHNIQUE: Sequential axial images were obtained from the domes of the diaphragm through the symphysis pubis. The study is markedly limited without the use of any contrast material. There are bilateral pleural effusions, right greater than left. The heart is enlarged. No acute infiltrates are identified. There is a trace amount of ascites about the liver. The liver, spleen, pancreas, adrenal glands and kidneys demonstrate no gross abnormalities. Small renal cysts are present bilaterally. The gallbladder has been removed. There is no evidence of intra-abdominal or retroperitoneal lymphadenopathy or fluid collections. There is no evidence of pneumoperitoneum, bowel obstruction or intra-abdominal abscess. There is no CT evidence of acute appendicitis There is extensive diverticulosis coli with no evidence of acute diverticulitis. Examination of the pelvis demonstrates no evidence of pelvic masses, fluid collections or lymphadenopathy. The prostate gland is enlarged measuring 6.2 x 5.4 x 5.5 cm. There is no evidence of acute bony pathology. IMPRESSION: 1. Bilateral pleural effusions. 2. Trace ascites. 3. Extensive diverticulosis coli. 4. Prostatic enlargement. 5. No acute pathology within the abdomen or pelvis. Please see above discussion. [id number] RAD/ANKLE & FOOT-LEFT* [id number] RAD/ANKLE & FOOT-RIGHT* HISTORY PROVIDED: Pain and swelling AP, oblique and lateral projections of both feet and ankles reveals no evidence of fracture, dislocation or acute bone or joint abnormalities. Mild degenerative changes are present about the small joints of the feet and ankles. There is a well-circumscribed lytic lesion within the left navicular bone. This has a benign appearance and is not significant change since a prior study of 11/29/2015. There is also a small spur along the plantar surface of the left calcaneus. Mild soft tissue swelling is seen about the left lateral malleolus. IMPRESSION: Mild degenerative arthritis with no fracture or acute bone or joint abnormalities. Please see above discussion. Reported By: Lance Pitts MD 07/14/18 1522 [id number] US/DUPLEX VASCUL US-2LEGS [id number] US/DUPLEX ART. LEGS- LIMITED US BILATERAL LOWER EXTREMITY VENOUS ULTRASOUND Clinical information given: evaluate for DVT The exam was performed utilizing compression, grayscale, color flow and doppler sonography. There is no sonographic evidence of deep vein thrombosis. If there is clinical concern for possible isolated calf DVT or if there is a clinical diagnosis of uncomplicated superficial thrombophlebitis, then correlation with close follow up sonography is suggested. IMPRESSION: No DVT is identified involving either leg. Please see above. LEFT LOWER EXTREMITY ARTERIAL DOPPLER ULTRASOUND Clinical information: evaluate for arterial thrombus; cold left big toe with discoloration The exam was performed utilizing grayscale and Doppler sonography. Decreased monophasic flow is seen within the left posterior tibial artery. Exam coverage does not include the anterior tibial or peroneal arteries. Unremarkable triphasic flow is noted within the common femoral, superficial femoral and popliteal arteries. IMPRESSION: Decreased monophasic flow is seen within the left posterior tibial artery. Reported By: Bhavik Sargent MD 07/14/182007-0098 RAD/BONE SURVEY (METASTATIC) Bone survey: Check for lytic lesions Chest: AP view of the chest reveals a large heart, unfolded aorta, multilead pacemaker, central congestive changes with questionable perihilar infiltrates, sharp angles and grossly intact bones with no sign of lytic or blastic changes. Skull: 2 views of the skull reveal no sign of blastic or lytic changes. There is demineralization of the clinoids. Lateral cervical spine: A single lateral view shows straightening with degenerative changes and wedging. Is no sign of blastic or lytic changes. There may be anterior clips or calcification in the prevertebral soft tissues by the upper cervical spine. Thoracic spine: AP and lateral views of the thoracic spine reveal scoliosis with minimal degenerative changes and no sign of blastic or lytic findings. There is a normal thoracic kyphosis. Lumbar spine: AP and lateral views are obscured in part by overlying contrast- filled loops of bowel. This is an incomplete evaluation. Blastic or lytic changes are not seen but is no sign of a gross fracture or subluxation. There is some straightening of the lumbar area. Pelvis: Single view of the pelvis is obscured in part by overlying contrast- filled loops of colon. What is seen shows no sign of blastic or lytic changes but this is an incomplete evaluation. Bilateral hips, femurs and knees: Blastic or lytic changes are not seen but is no sign of fracture or subluxation. Significant arthritic changes are not seen in the hips or knees. Right and left humerus: There is no sign of blastic or lytic changes. No sign of fracture or subluxation. Overall impression: No sign of blastic or lytic changes. No sign of a fracture. Limited visualization of the lumbar spine and pelvis due to overlying contrast filled loops of bowel. An AP view of the cervical spine has not been submitted. Correlation recommended. Reported By: Viktor Griffin MD 07/15/18 1737 [id number] US/DOPPLER,ABDOM ORGAN,COMP US [id number] US/KIDNEY / RENAL US Rule out renal vein thrombosis. Renal and Doppler ultrasound upper abdomen ultrasound dated renal ultrasound dated 06/17/2018 The right kidney measures 7.9 cm in sagittal length with a simple cyst measuring 2.1 x 1.8 cm. Another adjacent tiny cyst is present anteriorly measuring 7 x 6 mm. There is normal color and duplex evaluation of the right renal vein. Left kidney measures 9 cm in sagittal length with an upper pole partially exophytic simple cyst measuring 2.7 x 2.5 cm. Normal duplex evaluation of the left renal vein. There is no evidence of hydronephrosis or renal stones, bilaterally. Visualized portion of the liver appears unremarkable. Normal duplex evaluation of the inferior vena cava IMPRESSION: Bilateral renal simple cysts, as described above without evidence of gross renal stones or hydronephrosis. Patent right and left renal vein as well as a patent inferior vena cava. Reported By: Dallas Dutta MD 07/17/18 1013 ASSESSMENT/PLAN: 77 y/o M PMH HTN, HLD, LV dysfunction/CHF, CKD 4, CAD s/p stents, [place] s/p defribilator, gout, DM, COPD due to smoking history?, who presented from Dr. Hood office with Weakness, poor PO intake, hypotension and found to have increasing confusion and ELLIOTT. There appears to have been a miscommunication between what clay roaster recommended and what the daughter gave. It appears as though the daughter continued to give the Lasix even though the patient was not supposed to be doing so. daughter has been concerned for a while about her father having dementia, on last admission pt was referred to Dr Munoz for an outpt dementia eval #? Metabolic encephalopathy vs suspected worsening dementia, poor PO intake. - Improving. will dc restraints and 1:1. -Consulted NeurologyTammy: suspects likely underlying Alzheimer vs frontotemporal dementia with superimposed metabolic encephalopathy with generalized weakness, poor cardiac status likely contributory as well. per neuro , no focality to suggest new cerebral ischemic event, no evidence of seizures, meningitis, etc -Dr. Connolly consulted -CT head w/o acute changes -MRI is not an option since has a PPM/defibrilator -encourage PO hydration, s/p clinimix by nephro given his worsening dementia state and poor po intake -ammonia fluctuating but unlikely to be contributing to AMS, no need for lactulose, GI recs appreciated -cont to hold gabapentin to avoid worsening confusion, neuro recs appreciated -Vit B12, Folic acid elevated -ucx, RPR neg -psych consulted -c/w zyprexa per psych -pastry assistant consulted, calorie count was not completed last week, however PO intake improved as well as his mental status. -family initially decided for PEG, but given circumstances of improvement will reach out to family and try to avoid PEG #new petechiae and abdominal echymosis w/ elevated INR 1.79 (not on AC) and thrombocytopenia - unclear etiology. Echymosis improving. plt downtrended to 50 but now rising to 111 (baseline ~150-200) while off heparin, found to be +HIT Ab but APRIL is neg. H/H remains stable at baseline. no obvious source of bleed. Possibly 2/2 liver disease/injury and c/b vit K depletion 2/2 poor po intake/ malabsorbtion. Also noted w/ low fibrinogen, there may be component of mild chronic DIC? 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 nephro and heme recs appreciated, elevated BUN may be contributing but unclear at this time as levels of 100 may cause platelet dsfx but unclear if this is what is causing his bruising. -heme/onc consulted, Palomino -corrected retic index is low indicating inadequate marrow response -CT A/P reviewed above, No acute pathology within the abdomen or pelvis -LDH, haptoglobin nl -FOBT neg -hold ASA and SQH -P and C ANCA, HERB neg -No evidence of Lupus anticoagulant -Mixing study: PT is elevated and PTT is nl, also Factor VII percentage is low. 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 will dc Argabotran and start eliquis 5mg qd, Heme recs appreciated. will dc restraints and 1:1 as mental status is improving and will no longer need to be on gtt # b/l foot/ankle swelling and erythema, TTP. L toes are cold dusky blue/purple color, DP pulses are palpable and heard on doppler - doesnt look infx or gout. likely represent emboli 2/2 chronic DIC?, as discussed above, vs cardiac etiology/CHF b/l foot XR to r/o frx reviewed above duplex neg DVT arterial reviewd above, Decreased monophasic flow within left posterior tibial artery. c/w Lipitor 40 HS vascular consult, Manolo f/u Echo lasix today per nephro #ELLIOTT on CKD stage4 2/2 volume depletion, baseline Cr is 1.8-2 - 3...2.6...2.4...2.2...2.4, poor po intake and was not receiving clinimix or IVF due to pulling his IVs - improving w/ encouragement of PO intake -nephro consulted, Sushil -UA, MM immuno w/u neg -FeUrea was 38.5% indicating slight tubular dysfunction -hold ACEi for now -encourage PO hydration -c/w PO bicarbonate for metabolic acidosis -metastatic series reviewed above, neg -Renal U/S reviewed above, showed no thrombosis -trial lasix in light of worsening Cr and leg swelling, f/u Echo #CHF with Severe LV dysfunction: may be contributing to leg swelling and poor toe perfusion, lasix today per nephro, f/u Echo -EKG was essentially unchanged since prior -cardio consult, Evy for optimization of HF meds, pt noted here w/ slightly low BP -carvedilol resumed at bid per cardio -hold ASA in setting of petechia and echymosis #Acute Transaminitis w/ elevated INR 1.79: likely 2/2 hepatic congestion 2/2 CHF w/ severe low EF, however component of ischemic injury may be present in setting of hypotension in the setting of volume depletion. The patient is not on any significant hepatotoxic medications. GI consulted, Dr. Camacho, and don' t think that he has hepatic encephalopathy or cirhosis given the lack of splenomegaly and normal liver size. - LFTs downtrending -hepatitis panel unremarkable -Ultrasound of the RUQ: fatty liver vs hepatocellular disease -restart lipitor at higher dose of 40 given embolic events and decreased vascular flow as mentioned above -No need for rifaximin and lactulose and tx of CHF will benefit the liver and should improve the LFTs, GI recs appreciated -Repeat colonoscopy in 2021 oupt #Hx of gout with elevated Uric acid - no signs of gout c/w home febuxostat #elevated TSH, and FT4, -as per network support technician most likely sick euthyroid. -will follow with Dr. Castaneda as an outpatient, for further w/u #DM: chronic -hold diabetic meds -ISS -BGM ACHS #CAD: chronic -hold ASA in setting of petechia and echymosis #FEN -encourage PO hydration -replete prn -diabetic/sodium diet, on calorie count #Prophylaxis -APRIL neg. will dc Argabotran and start eliquis 5mg qd, Heme recs appreciated. -scd b/l #Dispo -med surg -calorie count was not completed last week, however PO intake improved as well as his mental status. -family initially decided for PEG, but given circumstances of improvement will reach out to family and try to avoid PEG -pt will need NH when medically optimized and successfully switched to eliquis. will try to dc restraints Visit type - Emergency Visit Emergency Visit: Yes ED Registration Date: 07/01/18 Care time: The patient presented to the Emergency Department on the above date and was hospitalized for further evaluation of their emergent condition. - New Patient This patient is new to me today: Yes Date on this admission: 07/23/18 - Critical Care Critical Care patient: No
[2018-07-23] MEDS: INSULIN SLIDING SCALE (NOVOLOG) 1 VIAL SQ SCH ×4 (07:11→22:55)
[2018-07-23 08:10] LABS: BASO % 0.1 % (0-2.0); EOS % 0.4 % (0-4.5); HEMATOCRIT 30.6 % (35.4-49); HEMOGLOBIN 9.7 GM/dL (11.7-16.9); LYMPH % 12.7 % (8-40); MCH 28.8 pg (25.7-33.7); MCHC 31.5 g/dl (32.0-35.9); MEAN CELL VOLUME 91.4 fl (80-96); MEAN PLT VOLUME 8.8 fl (7.5-11.1); MONO % 4.7 % (3.8-10.2); NEUT % 82.1 % (42.8-82.8); PLATELET COUNT 111 K/MM3 (134-434); RBC 3.35 M/mm3 (4.00-5.60); RDW 17.1 % (11.9-15.9); WHITE BLOOD COUNT 7.8 K/mm3 (4.0-10.0)
[2018-07-23 08:50] LABS: BILIRUBIN,TOTAL 3.8 mg/dL (0.2-1); CALCIUM 7.6 mg/dL (8.5-10.1); CREATININE 2.4 mg/dL (0.55-1.3); MAGNESIUM 2.9 mg/dL (1.8-2.4); PHOSPHOROUS 3.5 mg/dL (2.5-4.9); POTASSIUM 4.2 mmol/L (3.5-5.1); TOT PROT 5.2 g/dl (6.4-8.2)
[2018-07-23 08:54] LABS: BLOOD UREA NITROGEN 106.6 mg/dL (7-18)
[2018-07-23 09:43] LABS: INR 1.69 (0.83-1.09)
[2018-07-23] MEDS: CHOLECALCIFEROL (VIT D3) 1,000 UNIT (25 MCG) TABLET PO SCH (11:10)
[2018-07-23] MEDS: SODIUM BICARBONATE 650 MG TABLET PO SCH ×2 (11:11→22:35)
[2018-07-23] MEDS: FEBUXOSTAT 40 MG TAB PO SCH (11:11)
--- NOTE | 2018-07-23 11:11 | PN ---
Progress Note (short form) - Note Progress Note: Patient seen and examined Confused and lethargic Toes remain somewhat cooler and greyish on left especially 5th toe Has central line and mittens Has pulled out multiple lines in past Last Vital Signs Temp Pulse Resp BP Pulse Ox 97.6 F 76 18 102/61 100 07/23/18 09:46 07/23/18 09:46 07/23/18 09:46 07/23/18 09:46 07/18/18 21:00 lethargic Rhonchi RSR Soft christie Left foot - cooler at toes with greyish discoloration and some demarcation 5th toe CBC, BMP 07/23/18 07:50 07/23/18 07:50 Current Medications Generic Name Dose Route Start Last Admin Trade Name Freq PRN Reason Stop Dose Admin Acetaminophen 650 mg 07/14/18 16:18 07/14/18 17:24 Tylenol - PO 650 mg Q4H PRN Administration PAIN LEVEL 6-10 Atorvastatin Calcium 40 mg 07/15/18 22:00 07/22/18 22:40 Lipitor - PO 40 mg HS CLIVE Administration Budesonide/Formoterol Fumarate 2 puff 07/01/18 10:00 07/22/18 22:44 Symbicort 160/4.5mcg - IH 2 puff BID CLIVE Administration Carvedilol 3.125 mg 07/09/18 22:15 07/22/18 22:40 Coreg - PO 3.125 mg BID CLIVE Administration Cholecalciferol 5,000 unit 07/07/18 16:30 07/22/18 10:46 Vitamin D3 - PO 5,000 unit DAILY CLIVE Administration Febuxostat 40 mg 07/01/18 12:00 07/22/18 10:48 Uloric - PO 40 mg DAILY CLIVE Administration Argatroban 250,000 mcg/ Sodium 250 mls @ 1.2 mls/hr 07/16/18 21:45 07/22/18 22:41 Chloride IVPB Not Given TITR CLIVE Protocol 0.225 MCG/KG/MIN Insulin Aspart 1 vial 07/01/18 07:00 07/23/18 07:11 Novolog Vial Sliding Scale - SQ 2 units ACHS CLIVE Administration Protocol Olanzapine 2.5 mg 07/09/18 22:00 07/22/18 22:40 Zyprexa - PO 2.5 mg HS CLIVE Administration Polyethylene Glycol 17 gm 07/10/18 13:04 07/22/18 10:51 Miralax (For Daily Use) - PO 17 grams DAILY PRN Administration CONSTIPATION Sodium Bicarbonate 650 mg 07/03/18 10:00 07/22/18 22:40 Sodium Bicarbonate - PO 650 mg BID CLIVE Administration Impression: Coagulopathy liver disease Ischemia toes ELLIOTT/CKD Anemia Thrombocytopenia Confusion /lethargy Plan: Interesting in that on 2 occasions HIT antibody had high titer yet APRIL was negative. Can switch to eliquis Would consider modified dose of 5 mg daily. Borderline kidney function for eliquis, but probably easier and safer to tolerate than coumadin. If PEG is required ,and if patient is on a/c with eliquis at that time, will need to discontinue x 3 days and bridge with heparin or single dose lovenox ( to compensate for renal disease.)
[2018-07-23] MEDS: CARVEDILOL 3.125 MG TABLET (FP) PO SCH ×2 (11:12→22:35)
[2018-07-23] MEDS: BUDESONIDE/FORMETEROL FUMARATE 160/4.5 mcg INHALER IH SCH ×2 (11:12→22:35)
[2018-07-23] MEDS ORDERED: FUROSEMIDE 40 MG/4 ML INJECTABLE VIAL IVPUSH ONE (12:36)
--- NOTE | 2018-07-23 12:58 | PN ---
Teaching Attending Note Name of Resident: Elmo Wheeler ATTENDING PHYSICIAN STATEMENT I saw and evaluated the patient. I reviewed the resident's note and discussed the case with the resident. I agree with the resident's findings and plan as documented. SUBJECTIVE: No fever or chills . denies any pain, no WHITE , no SOB OBJECTIVE: NAD, awake, alert, cooperative , knows location and age . not year. CV: RRR, no MRG Lungs: CTAB Abd: soft, ND, NT, fading bruises in periubilical area. Nl BS Ext: edema on both feet.L leg and thigh edema > R . 2+ . L foot toes have purple discoloration. Dp 1+ b/l. warm feet. A/P: 77 y/o man with h/o HTN, HLP, systolic CHF, COPD, CKD, CAD s/p stenting, [place], ICD , gout, DM, and other medical problems who presented with general weakness. 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 will transition form argatroban to eliquis. this was d/w dr. Palomino, coumadin is not a good choice for him and reduced dose of eliquis is the only safe option - in regards to the TF: calorie count was not completed last week, patient po intake improved as his mental status improved. - will try to avoid PEG and d/w family - follow results of Factor V,Viii, and x - still did not determine the source of the toe discoloration, cardiac source VS DIC---> will get Echo - d/w renal: will give lasix today - at dc might need low dose lasix - cont coreg - cont SSI Dispo: if switched to eliquis, can try dc to rehab, try to dc restraints
--- NOTE | 2018-07-23 14:09 | PN ---
Progress Note (short form) - Note Progress Note: Renal follow up for ELLIOTT Pt seen and examined at the bedside awake and alert ate breakfast as per aid no sob, cp, abd pain Vital Signs Temperature 97.6 F 07/23/18 09:46 Pulse Rate 76 07/23/18 09:46 Respiratory Rate 18 07/23/18 09:46 Blood Pressure 102/61 07/23/18 09:46 O2 Sat by Pulse Oximetry (%) 100 07/18/18 21:00 Intake & Output 07/20/18 07/21/18 07/22/18 07/23/18 23:59 23:59 23:59 23:59 Intake Total 321.4 1132.0 718.0 2.1 Output Total 800 1400 790 300 Balance -478.6 -268.0 -72.0 -297.9 Weight 91.58 kg 90.855 kg 92.896 kg 92.249 kg Dec BS soft NT/ND + LE edema no bladder distension CBC, BMP 07/23/18 07:50 07/23/18 07:50 Current Medications Acetaminophen (Tylenol -) 650 mg PO Q4H PRN PRN Reason: PAIN LEVEL 6-10 Last Admin: 07/14/18 17:24 Dose: 650 mg Atorvastatin Calcium (Lipitor -) 40 mg PO HS [facility] Last Admin: 07/22/18 22:40 Dose: 40 mg Budesonide/Formoterol Fumarate (Symbicort 160/4.5mcg -) 2 puff IH BID [facility] Last Admin: 07/23/18 11:12 Dose: 2 puff Carvedilol (Coreg -) 3.125 mg PO BID [facility] Last Admin: 07/23/18 11:12 Dose: 3.125 mg Cholecalciferol (Vitamin D3 -) 5,000 unit PO DAILY [facility] Last Admin: 07/23/18 11:10 Dose: 5,000 unit Febuxostat (Uloric -) 40 mg PO DAILY [facility] Last Admin: 07/23/18 11:11 Dose: 40 mg Argatroban 250,000 mcg/ Sodium (Chloride) 250 mls @ 1.2 mls/hr IVPB TITR [facility]; Protocol Last Admin: 07/22/18 22:41 Dose: Not Given Insulin Aspart (Novolog Vial Sliding Scale -) 1 vial SQ ACHS [facility]; Protocol Last Admin: 07/23/18 11:13 Dose: 2 units Olanzapine (Zyprexa -) 2.5 mg PO HS [facility] Last Admin: 07/22/18 22:40 Dose: 2.5 mg Polyethylene Glycol (Miralax (For Daily Use) -) 17 gm PO DAILY PRN PRN Reason: CONSTIPATION Last Admin: 07/22/18 10:51 Dose: 17 grams Sodium Bicarbonate (Sodium Bicarbonate -) 650 mg PO BID [facility] Last Admin: 07/23/18 11:11 Dose: 650 mg 77 year old gentleman with hx of CKD stage 3 (baseline Cr 1.8-2), CAD s/p PCI, CHF with very low LVEF, hyperlipidemia, hypertension, AICD placement, DM, COPD who presented from Dr. Connolly's office with hypotension and found to have increasing confusion and ELLIOTT. #ELLIOTT on CKD due to volume depletion vs. HRS vs. Cardio-renal syndrome vs. renal injury in setting of DIC #Hypotension #Altered mental status r/o dementia vs. other cause #DM #Hypertension #CHF #metabolic acidosis with respiratory compensation Renal function improved but not yet at baseline CXR w/o overt congestion but clincially overloaded, will give Lasix 40mg IV x 1 now repeat CXR in AM a/c as per Heme Renal vein doppler showed no thrombosis oral intake as tolerated supportive care Mikhail Ling DO
--- NOTE | 2018-07-23 14:21 | ECHO ---
Name: RINA FRASER JR Exam:Adult Echocardiogram Study Date: 07/23/2018 01:02 PM Age: 77 yrs Reason For Study: r/o source emboli Height: 71 in Weight: 203 lb BSA: 2.1 m2 MMode/2D Measurements & Calculations IVSd: 1.2 cm Ao root diam: 3.3 cm LVIDd: 6.5 cm LA dimension: 3.9 cm LVIDs: 6.1 cm LVPWd: 0.98 cm EDV(Teich): 213.1 ml RVOT diam: 2.3 cm ESV(Teich): 189.0 ml Doppler Measurements & Calculations LV V1 max P.1 mmHg MR max mayo: 359.7 cm/sec LV V1 mean P.54 mmHg MR max P.8 mmHg LV V1 max: 52.4 cm/sec LV V1 mean: 34.0 cm/sec LV V1 VTI: 8.7 cm TR max mayo: 287.1 cm/sec Med Peak E' Amyo: 5.2 cm/sec TR max P.0 mmHg Lat Peak E' Mayo: 7.6 cm/sec Left Ventricle The left ventricle is moderately dilated. Ejection Fraction = <15%. There is severe global hypokinesi s of the left ventricle. Remnant of torn mitral valve chord anterior wall of left ventricle. Right Ventricle There is a pacemaker lead in the right ventricle. The right ventricle is grossly normal size. The rig ht ventricular systolic function is moderately reduced. Atria The left atrium is mildly dilated. There is a catheter/pacemaker lead seen in the right atrium. Mitral Valve There is moderate mitral regurgitation. Tricuspid Valve There is mild tricuspid regurgitation. Right ventricular systolic pressure is elevated at 30-40mmHg. Aortic Valve There is mild aortic sclerosis.;. No hemodynamically significant valvular aortic stenosis. No aortic regurgitation is present. Pulmonic Valve The pulmonic valve is not well seen, but is grossly normal. There is no pulmonic valvular stenosis. M ild pulmonic valvular regurgitation. Great Vessels The aortic root is normal size. Pericardium/Pleura There is no pericardial effusion. Interpretation Summary The left atrium is mildly dilated. There is moderate mitral regurgitation. The left ventricle is moderately dilated. There is severe global hypokinesis of the left ventricle. Ejection Fraction = <15%. There is mild tricuspid regurgitation. There is a pacemaker lead in the right ventricle. Remnant of torn mitral valve chord anterior wall of left ventricle. There is mild aortic sclerosis.; There is no pericardial effusion. MD Haro *Lela 07/23/2018 02:20 PM
[2018-07-23] MEDS ORDERED: APIXABAN 5 MG TABLET PO SCH (15:00)
[2018-07-23] MEDS: APIXABAN 5 MG TABLET PO SCH (16:52)
[2018-07-23] MEDS: ATORVASTATIN CA 40 MG TABLET (FP) PO SCH (22:35)
[2018-07-23] MEDS: OLANZapine 2.5 MG TABLET PO SCH (22:35)
[2018-07-24] MEDS: INSULIN SLIDING SCALE (NOVOLOG) 1 VIAL SQ SCH ×4 (06:11→21:45)
[2018-07-24 09:26] LABS: BASO % 0.2 % (0-2.0); EOS % 0.4 % (0-4.5); HEMATOCRIT 31.3 % (35.4-49); HEMOGLOBIN 10.1 GM/dL (11.7-16.9); MCH 29.1 pg (25.7-33.7); MCHC 32.3 g/dl (32.0-35.9); MEAN CELL VOLUME 90.1 fl (80-96); MEAN PLT VOLUME 8.9 fl (7.5-11.1); MONO % 5.3 % (3.8-10.2); NEUT % 81.1 % (42.8-82.8); RBC 3.48 M/mm3 (4.00-5.60); RDW 17.3 % (11.9-15.9); WHITE BLOOD COUNT 7.2 K/mm3 (4.0-10.0)
[2018-07-24 09:41] LABS: CALCIUM 7.5 mg/dL (8.5-10.1); CREATININE 2.4 mg/dL (0.55-1.3); MAGNESIUM 2.7 mg/dL (1.8-2.4); PHOSPHOROUS 3.4 mg/dL (2.5-4.9); POTASSIUM 4.5 mmol/L (3.5-5.1)
[2018-07-24 09:44] LABS: PLATELET COUNT 125 K/MM3 (134-434)
[2018-07-24 10:00] LABS: BLOOD UREA NITROGEN 110.4 mg/dL (7-18)
[2018-07-24] MEDS ORDERED: FUROSEMIDE 20 MG TABLET (FP) PO ONE (10:23)
[2018-07-24] MEDS: CHOLECALCIFEROL (VIT D3) 1,000 UNIT (25 MCG) TABLET PO SCH (11:36)
[2018-07-24] MEDS: SODIUM BICARBONATE 650 MG TABLET PO SCH ×2 (11:36→21:46)
[2018-07-24] MEDS: FEBUXOSTAT 40 MG TAB PO SCH (11:38)
[2018-07-24] MEDS: CARVEDILOL 3.125 MG TABLET (FP) PO SCH ×2 (11:39→21:46)
[2018-07-24] MEDS: BUDESONIDE/FORMETEROL FUMARATE 160/4.5 mcg INHALER IH SCH ×2 (11:39→21:59)
--- NOTE | 2018-07-24 13:55 | PN ---
Teaching Attending Note Name of Resident: Luca Amaral ATTENDING PHYSICIAN STATEMENT I saw and evaluated the patient. I reviewed the resident's note and discussed the case with the resident. I agree with the resident's findings and plan as documented. SUBJECTIVE: No fever or chills. No WHITE , no pain. No OSB OBJECTIVE: NAD, awake, alert, cooperative , knows location and age . not year. CV: RRR, no MRG Lungs:b/l crackles Abd: soft, ND, NT, fading bruises in periubilical area. Nl BS Ext: edema on both feet.L leg and thigh edema > R . 2+ . L foot toes have purple discoloration. Dp 1+ b/l. warm feet. A/P: 77 y/o man with h/o HTN, HLP, systolic CHF, COPD, CKD, CAD s/p stenting, ND, ICD , gout, DM, and other medical problems who presented with general weakness. 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
--- NOTE | 2018-07-24 14:47 | PN ---
Progress Note, Physician History of Present Illness: Denies bleeding, no pain in toes - Current Medication List Current Medications: Active Medications Acetaminophen (Tylenol -) 650 mg PO Q4H PRN PRN Reason: PAIN LEVEL 6-10 Last Admin: 07/14/18 17:24 Dose: 650 mg Apixaban (Eliquis -) 5 mg PO Q24H [facility] Last Admin: 07/23/18 16:52 Dose: 5 mg Atorvastatin Calcium (Lipitor -) 40 mg PO HS [facility] Last Admin: 07/23/18 22:35 Dose: 40 mg Budesonide/Formoterol Fumarate (Symbicort 160/4.5mcg -) 2 puff IH BID [facility] Last Admin: 07/24/18 11:39 Dose: 2 puff Carvedilol (Coreg -) 3.125 mg PO BID [facility] Last Admin: 07/24/18 11:39 Dose: Not Given Cholecalciferol (Vitamin D3 -) 5,000 unit PO DAILY [facility] Last Admin: 07/24/18 11:36 Dose: 5,000 unit Febuxostat (Uloric -) 40 mg PO DAILY [facility] Last Admin: 07/24/18 11:38 Dose: 40 mg Insulin Aspart (Novolog Vial Sliding Scale -) 1 vial SQ [facility]; Protocol Last Admin: 07/24/18 11:43 Dose: 2 units Olanzapine (Zyprexa -) 2.5 mg PO [facility] Last Admin: 07/23/18 22:35 Dose: 2.5 mg Polyethylene Glycol (Miralax (For Daily Use) -) 17 gm PO DAILY PRN PRN Reason: CONSTIPATION Last Admin: 07/22/18 10:51 Dose: 17 grams Sodium Bicarbonate (Sodium Bicarbonate -) 650 mg PO BID [facility] Last Admin: 07/24/18 11:36 Dose: 650 mg - Objective Vital Signs: Vital Signs Temperature 97.8 F 07/24/18 14:43 Pulse Rate 76 07/24/18 14:43 Respiratory Rate 18 07/24/18 14:43 Blood Pressure 86/53 L 07/24/18 14:43 O2 Sat by Pulse Oximetry (%) 98 07/23/18 21:00 Constitutional: Yes: No Distress, Calm Eyes: Yes: Conjunctiva Clear Cardiovascular: Yes: Regular Rate and Rhythm Respiratory: Yes: Regular, CTA Bilaterally Gastrointestinal: Yes: Soft Extremities: Yes: Other (scds in place blue 1st nad 2nd toe on left foot) Labs: CBC, BMP 07/24/18 08:58 07/24/18 08:58 INR, PTT INR 1.69 (0.83-1.09) H 07/23/18 07:50 Fibrinogen 165.0 mg/dL (238-498) L D 07/18/18 23:05 Assessment/Plan 77M with HTN, HLD, CAD with LV dysfunction (EF 15%), s/p AICD, COPD, CKD IV, admitted with generalized weakness, poor PO intake, hypotension. Hematology following for petechiae and ecchymosis. Developed ischemic toes. TTE without obvious thrombus/endocarditis (?remnant of mitral valve chord new). HIT ab + but APRIL neg x 2 (OD ~1.7). Plt count improving. Switched from argatroban to apixaban yesterday. Monitor coags now that off DTI
--- NOTE | 2018-07-24 16:26 | PN ---
Physical Exam: SUBJECTIVE: Patient seen and examined at bedside. Patient mildly agitated with quiet swearing. Patient Pulled LT TLC overnight. OBJECTIVE: Vital Signs Period Temp Pulse Resp BP Sys/Robbins Pulse Ox Last 24 Hr 96.7 F-97.8 F 75-102 18-20 82-92/48-62 98 GENERAL: The patient is awake, alert, and fully oriented, in no acute distress. NECK: Trachea midline, full range of motion, supple. Mild echymosis over left neck at TLC site. No active bleeding LUNGS: Breath sounds equal, Crackles heard at the bases b/l HEART: Regular rate and rhythm, S1, S2 without murmur, rub or gallop. ABDOMEN: Soft, nontender, nondistended, normoactive bowel sounds, no guarding, no rebound, no hepatosplenomegaly, no masses. EXTREMITIES: 2+ pulses, warm, well-perfused, no edema. NEUROLOGICAL: Cranial nerves II through X grossly intact. Normal speech, gait not observed. SKIN: Warm, dry, normal turgor. Petechiae and ecchymoses improved. Laboratory Results - last 24 hr 07/23/18 07/23/18 07/24/18 16:54 22:54 05:35 WBC RBC Hgb Hct MCV MCH MCHC RDW Plt Count MPV Absolute Neuts (auto) Neutrophils % Lymphocytes % Monocytes % Eosinophils % Basophils % Nucleated RBC % Sodium Potassium Chloride Carbon Dioxide Anion Gap BUN Creatinine Est GFR (CKD-EPI)AfAm Est GFR (CKD-EPI)NonAf POC Glucometer 163 179 172 Random Glucose Calcium Phosphorus Magnesium 07/24/18 07/24/18 07/24/18 08:58 08:58 11:23 WBC 7.2 RBC 3.48 L Hgb 10.1 L Hct 31.3 L MCV 90.1 MCH 29.1 MCHC 32.3 RDW 17.3 H Plt Count 125 L MPV 8.9 Absolute Neuts (auto) 5.8 Neutrophils % 81.1 Lymphocytes % 13.0 Monocytes % 5.3 Eosinophils % 0.4 Basophils % 0.2 Nucleated RBC % 0 Sodium 136 Potassium 4.5 Chloride 106 Carbon Dioxide 22 Anion Gap 8 BUN 110.4 H* Creatinine 2.4 H Est GFR (CKD-EPI)AfAm 29.27 Est GFR (CKD-EPI)NonAf 25.26 POC Glucometer 174 Random Glucose 175 H Calcium 7.5 L Phosphorus 3.4 Magnesium 2.7 H Active Medications Generic Name Dose Route Start Last Admin Trade Name Freq PRN Reason Stop Dose Admin Acetaminophen 650 mg 07/14/18 16:18 07/14/18 17:24 Tylenol - PO 650 mg Q4H PRN Administration PAIN LEVEL 6-10 Apixaban 5 mg 07/23/18 15:30 07/23/18 16:52 Eliquis - PO 5 mg Q24H [facility] Administration Atorvastatin Calcium 40 mg 07/15/18 22:00 07/23/18 22:35 Lipitor - PO 40 mg HS [facility] Administration Budesonide/Formoterol Fumarate 2 puff 07/01/18 10:00 07/24/18 11:39 Symbicort 160/4.5mcg - IH 2 puff BID [facility] Administration Carvedilol 3.125 mg 07/09/18 22:15 07/24/18 11:39 Coreg - PO Not Given BID [facility] Cholecalciferol 5,000 unit 07/07/18 16:30 07/24/18 11:36 Vitamin D3 - PO 5,000 unit DAILY [facility] Administration Febuxostat 40 mg 07/01/18 12:00 07/24/18 11:38 Uloric - PO 40 mg DAILY [facility] Administration Insulin Aspart 1 vial 07/01/18 07:00 07/24/18 11:43 Novolog Vial Sliding Scale - SQ 2 units ACHS [facility] Administration Protocol Olanzapine 2.5 mg 07/09/18 22:00 07/23/18 22:35 Zyprexa - PO 2.5 mg HS [facility] Administration Polyethylene Glycol 17 gm 07/10/18 13:04 07/22/18 10:51 Miralax (For Daily Use) - PO 17 grams DAILY [facility]N Administration CONSTIPATION Sodium Bicarbonate 650 mg 07/03/18 10:00 07/24/18 11:36 Sodium Bicarbonate - PO 650 mg BID [facility] Administration ASSESSMENT/PLAN: 77 y/o M PMH HTN, HLD, LV dysfunction/CHF, CKD 4, CAD s/p stents, MD s/p defribilator, gout, DM, COPD, who presented from Dr. Hood office with Weakness, poor PO intake, hypotension and found to have increasing confusion and ELLIOTT. #new petechiae and abdominal echymosis w/ elevated INR 1.79 (not on AC) and thrombocytopenia -unclear etiology. -Echymosis improving. plt WNL -found to be +HIT Ab but APRIL is neg. -H/H remains stable at baseline. -Also noted w/ low fibrinogen, there may be component of mild chronic DIC? -heme/onc consulted, Candelario -Pt switched to PO eliquis 5mg qd # b/l foot/ankle swelling, erythema, cyanosis and tendernesss -DP pulses are palpable and heard on doppler -less likely infx or gout. -possibly 2/2 emboli 2/2 chronic DIC?, as discussed above, vs cardiac etiology/CHF -vascular consultManolo -Echo does not show thrombi #Metabolic encephalopathy vs suspected worsening dementia, poor PO intake -Consulted NeurologyTammy: -likely underlying Alzheimer vs frontotemporal dementia with superimposed metabolic encephalopathy with generalized weakness -poor cardiac status likely contributory as well. -No CVA -Dr. Connolly consulted -MRI contraindicated since has a PPM/defibrilator -encourage PO hydration; patient eats well when fed -ammonia unlikely to be contributing to AMS, no need for lactulose, GI recs appreciated -cont to hold gabapentin to avoid worsening confusion, neuro recs appreciated -ucx, RPR neg -psych consulted: c/w zyprexa -research quality assurance analyst consulted, calorie count was not completed last week, however PO intake improved as well as his mental status. -Restraints, 1:1 d/c'd -Patient mildly agitated, pulled out CVC; noted to be intact at bedside. Hemostasis achieved by nursing staff #ELLIOTT on CKD stage 4 2/2 volume depletion -baseline Cr is ~2 -improving w/ encouragement of PO intake -nephro consulted, Sushil -UA, MM immuno w/u neg -hold ACEi for now -encourage PO hydration -c/w PO bicarbonate for metabolic acidosis -metastatic series reviewed above, neg -Renal U/S reviewed above, showed no thrombosis #CHF with Severe LV dysfunction -may be contributing to leg swelling and poor toe perfusion -Echo w/ EF <15% -EKG was essentially unchanged since prior -cardio consultEvy for optimization of HF meds, pt noted here w/ slightly low BP -carvedilol resumed at bid per cardio -will order 20mg Lasix PO today; congestion noted on physical exam #Acute Transaminitis w/ elevated INR 1.79- resolved -likely 2/2 hepatic congestion 2/2 CHF -possible shock liver in setting of hypotension -GI consulted -hepatitis panel unremarkable -LFTs returned to normal #Hx of gout with elevated Uric acid - no signs of gout -c/w home febuxostat #elevated TSH, and FT4, -as per operator maintainer most likely sick euthyroid. -will follow with Dr. Castaneda as an outpatient, for further w/u #DM: chronic -hold diabetic meds -ISS -BGM ACHS #CAD: chronic -hold ASA in setting of petechia and echymosis #FEN -encourage PO hydration -replete lytes prn -diabetic/sodium diet #Prophylaxis -On Eliquis #Dispo -admit med surg -PEG not indicated as patient eating well when fed -D/c Planning to SNF; accepted, awaiting auth Visit type - Emergency Visit Emergency Visit: Yes ED Registration Date: 07/01/18 Care time: The patient presented to the Emergency Department on the above date and was hospitalized for further evaluation of their emergent condition. - New Patient This patient is new to me today: No - Critical Care Critical Care patient: No - Discharge Referral Referred to [facility] Med [facility] No
--- NOTE | 2018-07-24 17:33 | PN ---
Progress Note (short form) - Note Progress Note: ckd justen s/p DIC poor intake HF edema Current Medications Acetaminophen (Tylenol -) 650 mg PO Q4H PRN PRN Reason: PAIN LEVEL 6-10 Last Admin: 07/14/18 17:24 Dose: 650 mg Apixaban (Eliquis -) 5 mg PO Q24H [facility] Last Admin: 07/23/18 16:52 Dose: 5 mg Atorvastatin Calcium (Lipitor -) 40 mg PO HS [facility] Last Admin: 07/23/18 22:35 Dose: 40 mg Budesonide/Formoterol Fumarate (Symbicort 160/4.5mcg -) 2 puff IH BID [facility] Last Admin: 07/24/18 11:39 Dose: 2 puff Carvedilol (Coreg -) 3.125 mg PO BID [facility] Last Admin: 07/24/18 11:39 Dose: Not Given Cholecalciferol (Vitamin D3 -) 5,000 unit PO DAILY [facility] Last Admin: 07/24/18 11:36 Dose: 5,000 unit Febuxostat (Uloric -) 40 mg PO DAILY [facility] Last Admin: 07/24/18 11:38 Dose: 40 mg Insulin Aspart (Novolog Vial Sliding Scale -) 1 vial SQ [facility]; Protocol Last Admin: 07/24/18 11:43 Dose: 2 units Olanzapine (Zyprexa -) 2.5 mg PO HS [facility] Last Admin: 07/23/18 22:35 Dose: 2.5 mg Polyethylene Glycol (Miralax (For Daily Use) -) 17 gm PO DAILY PRN PRN Reason: CONSTIPATION Last Admin: 07/22/18 10:51 Dose: 17 grams Sodium Bicarbonate (Sodium Bicarbonate -) 650 mg PO BID [facility] Last Admin: 07/24/18 11:36 Dose: 650 mg Last Vital Signs Temp Pulse Resp BP Pulse Ox 97.8 F 76 18 86/53 L 98 07/24/18 14:43 07/24/18 14:43 07/24/18 14:43 07/24/18 14:43 07/23/18 21:00 lungs faint wheezes heart reg abd soft ext edema purple 5th toe CBC, BMP 07/24/18 08:58 07/24/18 08:58 IMP ckd justen s/p DIC poor intake HF edema Plan- monitor labs and fluid status continue diuresis
[2018-07-24] MEDS: APIXABAN 5 MG TABLET PO SCH (17:41)
[2018-07-24] MEDS ORDERED: PT OWN MED DRAWER 7, Y5N ONE (20:51)
[2018-07-24] MEDS: ATORVASTATIN CA 40 MG TABLET (FP) PO SCH (21:46)
[2018-07-24] MEDS: OLANZapine 2.5 MG TABLET PO SCH (21:47)
[2018-07-25] MEDS: INSULIN SLIDING SCALE (NOVOLOG) 1 VIAL SQ SCH ×4 (06:07→21:19)
[2018-07-25 09:25] LABS: HEMATOCRIT 32.6 % (35.4-49); HEMOGLOBIN 10.3 GM/dL (11.7-16.9); MCH 28.7 pg (25.7-33.7); MCHC 31.6 g/dl (32.0-35.9); MEAN PLT VOLUME 8.5 fl (7.5-11.1); RBC 3.59 M/mm3 (4.00-5.60); RDW 17.9 % (11.9-15.9); WHITE BLOOD COUNT 6.8 K/mm3 (4.0-10.0)
[2018-07-25 09:42] LABS: PLATELET COUNT 146 K/MM3 (134-434)
[2018-07-25] MEDS: CARVEDILOL 3.125 MG TABLET (FP) PO SCH ×2 (09:43→21:21)
[2018-07-25] MEDS ORDERED: PT OWN MED DRAWER 7, Y5N ONE (09:57)
[2018-07-25 10:02] LABS: CALCIUM 7.7 mg/dL (8.5-10.1); CREATININE 2.4 mg/dL (0.55-1.3); POTASSIUM 4.4 mmol/L (3.5-5.1)
[2018-07-25] MEDS: CHOLECALCIFEROL (VIT D3) 1,000 UNIT (25 MCG) TABLET PO SCH (10:07)
[2018-07-25] MEDS: FEBUXOSTAT 40 MG TAB PO SCH (10:08)
[2018-07-25] MEDS: SODIUM BICARBONATE 650 MG TABLET PO SCH ×2 (10:08→21:21)
[2018-07-25] MEDS: BUDESONIDE/FORMETEROL FUMARATE 160/4.5 mcg INHALER IH SCH ×2 (10:08→21:23)
[2018-07-25 10:23] LABS: BLOOD UREA NITROGEN 110.3 mg/dL (7-18)
--- NOTE | 2018-07-25 14:06 | PN ---
Progress Note (short form) - Note Progress Note: Subjective: no fever or chills. No WHITE . No SOB Objective: Vital Signs: Last Vital Signs Temp Pulse Resp BP Pulse Ox 97.3 F L 86 20 91/58 L 100 07/25/18 09:30 07/25/18 09:30 07/25/18 09:30 07/25/18 09:30 07/24/18 21:00 Laboratory Results - last 24 hr 07/24/18 07/24/18 07/25/18 17:34 21:44 06:06 WBC RBC Hgb Hct MCV MCH MCHC RDW Plt Count MPV Sodium Potassium Chloride Carbon Dioxide Anion Gap BUN Creatinine Est GFR (CKD-EPI)AfAm Est GFR (CKD-EPI)NonAf POC Glucometer 189 229 151 Random Glucose Calcium Stool Occult Blood 07/25/18 07/25/18 07/25/18 09:14 09:14 10:00 WBC 6.8 RBC 3.59 L Hgb 10.3 L Hct 32.6 L MCV 91.0 MCH 28.7 MCHC 31.6 L RDW 17.9 H Plt Count 146 MPV 8.5 Sodium 135 L Potassium 4.4 Chloride 104 Carbon Dioxide 22 Anion Gap 9 BUN 110.3 H* Creatinine 2.4 H Est GFR (CKD-EPI)AfAm 29.27 Est GFR (CKD-EPI)NonAf 25.26 POC Glucometer Random Glucose 166 H Calcium 7.7 L Stool Occult Blood Negative 07/25/18 11:26 WBC RBC Hgb Hct MCV MCH MCHC RDW Plt Count MPV Sodium Potassium Chloride Carbon Dioxide Anion Gap BUN Creatinine Est GFR (CKD-EPI)AfAm Est GFR (CKD-EPI)NonAf POC Glucometer 202 Random Glucose Calcium Stool Occult Blood Physical Exam: NAD, awake, alert, cooperative , knows location and age . not year. CV: RRR, no MRG Lungs:b/l crackles Abd: soft, ND, NT, fading bruises in periubilical area. Nl BS Ext: edema on both feet.L leg and thigh edema > R . 2+ . L foot toes have purple discoloration not changed from yesterday. Dp 1+ b/l. warm feet. A/P: 77 y/o man with h/o HTN, HLP, systolic CHF, COPD, CKD, CAD s/p stenting, MT, ICD , gout, DM, and other medical problems who presented with general weakness. 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, but negative serotonin assay 3- Possible low grade DIC 4- CKD 5- Possible liver disease 6- DM 7- h/o diastolic CHF 8- Thrombocytopenia 9- Discolored toes 10- Euthyroid sick syndrome plan : - cont eliquis at the current dose - give 20 of po lasix today, and continue daily as he cont to have congestion and edema - cont coreg - cont SSI - No PEG at this time - off restraints Dispo: Dc to rehab pending insurance approval Visit type - Emergency Visit Emergency Visit: Yes ED Registration Date: 07/01/18 Care time: The patient presented to the Emergency Department on the above date and was hospitalized for further evaluation of their emergent condition. - New Patient This patient is new to me today: No - Critical Care Critical Care patient: No
[2018-07-25] MEDS: FUROSEMIDE 20 MG TABLET (FP) PO SCH (14:26)
--- NOTE | 2018-07-25 14:51 | PN ---
Progress Note (short form) - Note Progress Note: ckd justen s/p DIC poor intake HF edema Current Medications Acetaminophen (Tylenol -) 650 mg PO Q4H PRN PRN Reason: PAIN LEVEL 6-10 Last Admin: 07/14/18 17:24 Dose: 650 mg Apixaban (Eliquis -) 5 mg PO Q24H [facility] Last Admin: 07/24/18 17:41 Dose: 5 mg Atorvastatin Calcium (Lipitor -) 40 mg PO HS [facility] Last Admin: 07/24/18 21:46 Dose: 40 mg Budesonide/Formoterol Fumarate (Symbicort 160/4.5mcg -) 2 puff IH BID [facility] Last Admin: 07/25/18 10:08 Dose: 2 puff Carvedilol (Coreg -) 3.125 mg PO BID [facility] Last Admin: 07/25/18 09:43 Dose: Not Given Cholecalciferol (Vitamin D3 -) 5,000 unit PO DAILY [facility] Last Admin: 07/25/18 10:07 Dose: 5,000 unit Febuxostat (Uloric -) 40 mg PO DAILY [facility] Last Admin: 07/25/18 10:08 Dose: 40 mg Furosemide (Lasix -) 20 mg PO DAILY [facility] Last Admin: 07/25/18 14:26 Dose: Not Given Insulin Aspart (Novolog Vial Sliding Scale -) 1 vial SQ [facility]; Protocol Last Admin: 07/25/18 11:37 Dose: 4 units Olanzapine (Zyprexa -) 2.5 mg PO [facility] Last Admin: 07/24/18 21:47 Dose: 2.5 mg Polyethylene Glycol (Miralax (For Daily Use) -) 17 gm PO DAILY PRN PRN Reason: CONSTIPATION Last Admin: 07/22/18 10:51 Dose: 17 grams Sodium Bicarbonate (Sodium Bicarbonate -) 650 mg PO BID [facility] Last Admin: 07/25/18 10:08 Dose: 650 mg Last Vital Signs Temp Pulse Resp BP Pulse Ox 97.3 F L 86 20 91/58 L 100 07/25/18 09:30 07/25/18 09:30 07/25/18 09:30 07/25/18 09:30 07/24/18 21:00 lungs faint wheezes heart reg abd soft ext edema purple 5th toe CBC, BMP 07/25/18 09:14 07/25/18 09:14 CBC, BMP 07/24/18 08:58 07/24/18 08:58 IMP ckd justen s/p DIC poor intake HF edema Plan- continue present tx
[2018-07-25] MEDS: APIXABAN 5 MG TABLET PO SCH ×2 (15:46→17:49)
--- NOTE | 2018-07-25 21:06 | PN ---
Progress Note, Physician Chief Complaint: Pr denies chest pain or dyspnea. History of Present Illness: Mr. Toth is a 77 YO black man with a PMH of HTN, HLD, CKD, CAD s/p stents, CT , with severe systoic CHF-->ICD, gout, COPD, hypothyroidism, who presents to the ER sent in by Dr. Connolly with generalized weakness, poor appetite, and after becoming hypotensive while in his office. Patient has had two recent admissions for dyspnea on exertion to rule out PE in this ED. Patient has been followed up by a bark fitter. Denies fever, chills, cp, N/V/C/D or urinary symptoms. Allergies: NKDA Social Hx: Former smoker. Denies drug or alcohol use. PCP: Dr. Holden Renal: Dr. Yane Connolly - Current Medication List Current Medications: Active Medications Acetaminophen (Tylenol -) 650 mg PO Q4H PRN PRN Reason: PAIN LEVEL 6-10 Last Admin: 07/14/18 17:24 Dose: 650 mg Apixaban (Eliquis -) 5 mg PO Q24H [facility] Last Admin: 07/25/18 17:49 Dose: 5 mg Atorvastatin Calcium (Lipitor -) 40 mg PO HS [facility] Last Admin: 07/24/18 21:46 Dose: 40 mg Budesonide/Formoterol Fumarate (Symbicort 160/4.5mcg -) 2 puff IH BID [facility] Last Admin: 07/25/18 10:08 Dose: 2 puff Carvedilol (Coreg -) 3.125 mg PO BID [facility] Last Admin: 07/25/18 09:43 Dose: Not Given Cholecalciferol (Vitamin D3 -) 5,000 unit PO DAILY [facility] Last Admin: 07/25/18 10:07 Dose: 5,000 unit Febuxostat (Uloric -) 40 mg PO DAILY [facility] Last Admin: 07/25/18 10:08 Dose: 40 mg Furosemide (Lasix -) 20 mg PO DAILY [facility] Last Admin: 07/25/18 14:26 Dose: Not Given Insulin Aspart (Novolog Vial Sliding Scale -) 1 vial SQ [facility]; Protocol Last Admin: 07/25/18 17:47 Dose: 2 units Olanzapine (Zyprexa -) 2.5 mg PO HS [facility] Last Admin: 07/24/18 21:47 Dose: 2.5 mg Polyethylene Glycol (Miralax (For Daily Use) -) 17 gm PO DAILY PRN PRN Reason: CONSTIPATION Last Admin: 07/22/18 10:51 Dose: 17 grams Sodium Bicarbonate (Sodium Bicarbonate -) 650 mg PO BID [facility] Last Admin: 07/25/18 10:08 Dose: 650 mg - Objective Vital Signs: Vital Signs Temperature 97.5 F L 07/25/18 17:32 Pulse Rate 84 07/25/18 17:32 Respiratory Rate 18 07/25/18 17:32 Blood Pressure 81/34 L 07/25/18 17:32 O2 Sat by Pulse Oximetry (%) 100 07/24/18 21:00 Constitutional: Yes: Calm Respiratory: Yes: Diminished Gastrointestinal: Yes: Soft ...Rectal Exam: Yes: Deferred Genitourinary: No: Anuria Musculoskeletal: Yes: Muscle Weakness Extremities: Yes: Cool Edema: Yes Edema: LLE: 1+, RLE: 1+ Peripheral Pulses WNL: No Peripheral Pulses: Left Doralis Pedis: 1+, Right Dorsalis Pedis: 1+ Integumentary: Yes: Venous Stasis Changes Wound/Incision: Yes: Dressing Dry and Intact (site of right neck IV cath (now removed)) Neurological: Yes: Alert, Weakness Psychiatric: Yes: Other Labs: CBC, BMP 07/25/18 09:14 07/25/18 09:14 INR, PTT INR 1.69 (0.83-1.09) H 07/23/18 07:50 Fibrinogen 165.0 mg/dL (238-498) L D 07/18/18 23:05 Abnormal Lab Results 07/25/18 07/25/18 09:14 09:14 RBC 3.59 L Hgb 10.3 L Hct 32.6 L MCHC 31.6 L RDW 17.9 H Sodium 135 L BUN 110.3 H* Creatinine 2.4 H Random Glucose 166 H Calcium 7.7 L Problem List - Problems (1) Acute on chronic systolic and diastolic heart failure, NYHA class 1 Assessment/Plan: Severe LV dysfunction. Carvedilol reduced to 3.125 mg daily due to hypotension, ?change in mental status. ACEI, spironolactone still held due to renal dysfunction, hypotension. On furosemide. F/u BUN/Cr, electrolytes, daily wt, Is and Os. 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 (2) Weakness Code(s): R53.1 - WEAKNESS (3) Acute on chronic renal insufficiency Code(s): N28.9 - DISORDER OF KIDNEY AND URETER, UNSPECIFIED; N18.9 - CHRONIC KIDNEY DISEASE, UNSPECIFIED (4) COPD (chronic obstructive pulmonary disease) Code(s): J44.9 - CHRONIC OBSTRUCTIVE PULMONARY DISEASE, UNSPECIFIED (5) Gout Code(s): M10.9 - GOUT, UNSPECIFIED (6) History of heart artery stent Code(s): Z95.5 - PRESENCE OF CORONARY ANGIOPLASTY IMPLANT AND GRAFT (7) Hyperlipidemia Code(s): E78.5 - HYPERLIPIDEMIA, UNSPECIFIED (8) Hypertension Code(s): I10 - ESSENTIAL (PRIMARY) HYPERTENSION (9) ICD (implantable cardioverter-defibrillator) in place Code(s): Z95.810 - PRESENCE OF AUTOMATIC (IMPLANTABLE) CARDIAC DEFIBRILLATOR
[2018-07-25] MEDS: ATORVASTATIN CA 40 MG TABLET (FP) PO SCH (21:22)
[2018-07-25] MEDS: OLANZapine 2.5 MG TABLET PO SCH (21:22)
--- NOTE | 2018-07-25 22:29 | PN ---
Progress Note, Physician History of Present Illness: No new events. No complaints - Current Medication List Current Medications: Active Medications Acetaminophen (Tylenol -) 650 mg PO Q4H PRN PRN Reason: PAIN LEVEL 6-10 Last Admin: 07/14/18 17:24 Dose: 650 mg Apixaban (Eliquis -) 5 mg PO Q24H [facility] Last Admin: 07/25/18 17:49 Dose: 5 mg Atorvastatin Calcium (Lipitor -) 40 mg PO HS [facility] Last Admin: 07/25/18 21:22 Dose: 40 mg Budesonide/Formoterol Fumarate (Symbicort 160/4.5mcg -) 2 puff IH BID [facility] Last Admin: 07/25/18 21:23 Dose: 2 puff Carvedilol (Coreg -) 3.125 mg PO BID [facility] Last Admin: 07/25/18 21:21 Dose: 3.125 mg Cholecalciferol (Vitamin D3 -) 5,000 unit PO DAILY [facility] Last Admin: 07/25/18 10:07 Dose: 5,000 unit Febuxostat (Uloric -) 40 mg PO DAILY [facility] Last Admin: 07/25/18 10:08 Dose: 40 mg Furosemide (Lasix -) 20 mg PO DAILY [facility] Last Admin: 07/25/18 14:26 Dose: Not Given Insulin Aspart (Novolog Vial Sliding Scale -) 1 vial SQ [facility]; Protocol Last Admin: 07/25/18 21:19 Dose: 2 units Olanzapine (Zyprexa -) 2.5 mg PO [facility] Last Admin: 07/25/18 21:22 Dose: 2.5 mg Polyethylene Glycol (Miralax (For Daily Use) -) 17 gm PO DAILY PRN PRN Reason: CONSTIPATION Last Admin: 07/22/18 10:51 Dose: 17 grams Sodium Bicarbonate (Sodium Bicarbonate -) 650 mg PO BID [facility] Last Admin: 07/25/18 21:21 Dose: 650 mg - Objective Vital Signs: Vital Signs Temperature 97.5 F L 07/25/18 17:32 Pulse Rate 84 07/25/18 17:32 Respiratory Rate 18 07/25/18 17:32 Blood Pressure 81/34 L 07/25/18 17:32 O2 Sat by Pulse Oximetry (%) 100 07/24/18 21:00 Constitutional: Yes: No Distress, Calm Cardiovascular: Yes: Regular Rate and Rhythm Respiratory: Yes: Regular, CTA Bilaterally Gastrointestinal: Yes: WNL, Soft. No: Distention Extremities: Yes: Other (left foot with blue discoloration of toes, most prominent at tips, tender to touch) Edema: LLE: 2+, RLE: 2+ Labs: CBC, BMP 07/25/18 09:14 07/25/18 09:14 INR, PTT INR 1.69 (0.83-1.09) H 07/23/18 07:50 Fibrinogen 165.0 mg/dL (238-498) L D 07/18/18 23:05 Assessment/Plan 77M with HTN, HLD, CAD with LV dysfunction (EF 15%), s/p AICD, COPD, CKD IV, admitted with generalized weakness, poor PO intake, hypotension. Hematology following for petechiae and ecchymosis. 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 TTE without obvious thrombus/endocarditis (?remnant of mitral valve chord new). ?atherosclerotic embolism. HIT ab + but APRIL neg x 2 (OD ~1.7). Plt count improving. Switched from argatroban to apixaban. Check coags/fibrinogen, beta-2- glycoprotein and cardiolipin antibodies, cryoglobulins, cold agglutinins.
[2018-07-26] MEDS: INSULIN SLIDING SCALE (NOVOLOG) 1 VIAL SQ SCH ×4 (06:07→22:53)
[2018-07-26 09:22] LABS: PROTHROMBIN TIME (PATIENT) 23.8 SEC (9.7-13.0)
[2018-07-26 09:25] LABS: ACTIVATED PTT 40.3 SECONDS (25.2-36.5)
--- NOTE | 2018-07-26 09:28 | PN ---
Progress Note, Physician Chief Complaint: sob History of Present Illness: The patient is a 77YOM with a PMH of HTN, HLD, CKD, CAD s/p stents, MA s/p defibrillator, gout, COPD, hypothyroidism, and CHF who presents to the ER sent in by Dr. Connolly with generalized weakness, poor appetite, and after becoming hypotensive while in his office. Patient has had two recent admissions for dyspnea on exertion to rule out PE in this ED. 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 Denies fever, chills, cp, N/V/C/D or urinary symptoms. Allergies: NKDA Social Hx: Former smoker. Denies drug or alcohol use. PCP: Dr. Holden Renal: Dr. Yane Connolly PMH PMH of MA (?x 2), severe systolic LV dsyfunction with ICD placed ?2 yrs ago, HTN , HLD, CAD s/p stents, renal dysfunction, COPD (quit cigarettes 10 yrs ago) unintentional weight loss, per family, and gout who presents to the ER with shortness of breath. He was recently discharged from [facility] after being admitted for ?"small MA and levated troponin." (per pt, he was there for two nights). - Current Medication List Current Medications: Active Medications Acetaminophen (Tylenol -) 650 mg PO Q4H PRN PRN Reason: PAIN LEVEL 6-10 Last Admin: 07/14/18 17:24 Dose: 650 mg Apixaban (Eliquis -) 5 mg PO Q24H [facility] Last Admin: 07/25/18 17:49 Dose: 5 mg Atorvastatin Calcium (Lipitor -) 40 mg PO HS [facility] Last Admin: 07/25/18 21:22 Dose: 40 mg Budesonide/Formoterol Fumarate (Symbicort 160/4.5mcg -) 2 puff IH BID [facility] Last Admin: 07/25/18 21:23 Dose: 2 puff Carvedilol (Coreg -) 3.125 mg PO BID [facility] Last Admin: 07/25/18 21:21 Dose: 3.125 mg Cholecalciferol (Vitamin D3 -) 5,000 unit PO DAILY [facility] Last Admin: 07/25/18 10:07 Dose: 5,000 unit Febuxostat (Uloric -) 40 mg PO DAILY [facility] Last Admin: 07/25/18 10:08 Dose: 40 mg Furosemide (Lasix -) 20 mg PO DAILY [facility] Last Admin: 07/25/18 14:26 Dose: Not Given Insulin Aspart (Novolog Vial Sliding Scale -) 1 vial SQ [facility]; Protocol Last Admin: 07/26/18 06:07 Dose: Not Given Olanzapine (Zyprexa -) 2.5 mg PO HS [facility] Last Admin: 07/25/18 21:22 Dose: 2.5 mg Polyethylene Glycol (Miralax (For Daily Use) -) 17 gm PO DAILY PRN PRN Reason: CONSTIPATION Last Admin: 07/22/18 10:51 Dose: 17 grams Sodium Bicarbonate (Sodium Bicarbonate -) 650 mg PO BID [facility] Last Admin: 07/25/18 21:21 Dose: 650 mg - Objective Vital Signs: Vital Signs Temperature 96.5 F L 07/26/18 06:00 Pulse Rate 99 H 07/26/18 06:00 Respiratory Rate 18 07/26/18 06:00 Blood Pressure 80/56 L 07/26/18 06:00 O2 Sat by Pulse Oximetry (%) 100 07/25/18 21:00 Eyes: Yes: WNL, Conjunctiva Clear, EOM Intact HENT: Yes: WNL, Atraumatic, Normocephalic Neck: Yes: WNL, Supple, Trachea Midline Cardiovascular: Yes: WNL, Regular Rate and Rhythm Respiratory: Yes: WNL, Regular, CTA Bilaterally Gastrointestinal: Yes: WNL, Normal Bowel Sounds Genitourinary: Yes: WNL Musculoskeletal: Yes: WNL Extremities: Yes: WNL Edema: No Integumentary: Yes: WNL ...Motor Strength: WNL Psychiatric: Yes: WNL Labs: CBC, BMP 07/25/18 09:14 07/25/18 09:14 INR, PTT INR 2.00 (0.83-1.09) H 07/26/18 08:40 Fibrinogen 402.0 mg/dL (238-498) D 07/26/18 08:40 Problem List - Problems (1) ELLIOTT (acute kidney injury) Code(s): N17.9 - ACUTE KIDNEY FAILURE, UNSPECIFIED (2) Elevated transaminase level Code(s): R74.0 - NONSPEC ELEV OF LEVELS OF TRANSAMNS & LACTIC ACID DEHYDRGNSE (3) Hypotension Code(s): I95.9 - HYPOTENSION, UNSPECIFIED Qualifiers: Hypotension type: unspecified hypotension type Qualified Code(s): I95.9 - Hypotension, unspecified (4) Weakness Code(s): R53.1 - WEAKNESS (5) Acute on chronic renal insufficiency Code(s): N28.9 - DISORDER OF KIDNEY AND URETER, UNSPECIFIED; N18.9 - CHRONIC KIDNEY DISEASE, UNSPECIFIED (6) Anemia Code(s): D64.9 - ANEMIA, UNSPECIFIED Qualifiers: Anemia type: unspecified type Qualified Code(s): D64.9 - Anemia, unspecified (7) Atypical chest pain Code(s): R07.89 - OTHER CHEST PAIN (8) COPD (chronic obstructive pulmonary disease) Code(s): J44.9 - CHRONIC OBSTRUCTIVE PULMONARY DISEASE, UNSPECIFIED (9) Cardiac arrhythmia Code(s): I49.9 - CARDIAC ARRHYTHMIA, UNSPECIFIED (10) Chest wall pain Code(s): R07.89 - OTHER CHEST PAIN (11) Colonic adenoma Code(s): D12.6 - BENIGN NEOPLASM OF COLON, UNSPECIFIED (12) Coronary arteriosclerosis Code(s): I25.10 - ATHSCL HEART DISEASE OF [place] CORONARY ARTERY W/O ANG PCTRS (13) DVT prophylaxis Code(s): [id number] - (14) Diabetes mellitus type 2 in obese Code(s): E11.9 - TYPE 2 DIABETES MELLITUS WITHOUT COMPLICATIONS; E66.9 - OBESITY , UNSPECIFIED (15) Dilated bile duct Code(s): K83.8 - OTHER SPECIFIED DISEASES OF BILIARY TRACT (16) Diverticulosis large intestine w/o perforation or abscess w/bleeding Code(s): K57.31 - DVRTCLOS OF LG INT W/O PERFORATION OR ABSCESS W BLEEDING (17) Dyspnea Code(s): R06.00 - DYSPNEA, UNSPECIFIED Qualifiers: Dyspnea type: unspecified Qualified Code(s): R06.00 - Dyspnea, unspecified (18) Elevated d-dimer Code(s): R79.89 - OTHER SPECIFIED ABNORMAL FINDINGS OF BLOOD CHEMISTRY (19) Full code status Code(s): Z78.9 - OTHER SPECIFIED HEALTH STATUS (20) Gout Code(s): M10.9 - GOUT, UNSPECIFIED (21) Gout attack Code(s): M10.9 - GOUT, UNSPECIFIED (22) History of heart artery stent Code(s): Z95.5 - PRESENCE OF CORONARY ANGIOPLASTY IMPLANT AND GRAFT (23) Hyperkalemia Code(s): E87.5 - HYPERKALEMIA (24) Hyperlipidemia Code(s): E78.5 - HYPERLIPIDEMIA, UNSPECIFIED (25) Hypertension Code(s): I10 - ESSENTIAL (PRIMARY) HYPERTENSION (26) Hypervolemia Code(s): E87.70 - FLUID OVERLOAD, UNSPECIFIED Qualifiers: Hypervolemia type: unspecified Qualified Code(s): E87.70 - Fluid overload, unspecified (28) ICD (implantable cardioverter-defibrillator) in place Code(s): Z95.810 - PRESENCE OF AUTOMATIC (IMPLANTABLE) CARDIAC DEFIBRILLATOR (29) Ileus Code(s): K56.7 - ILEUS, UNSPECIFIED (30) Insomnia Code(s): G47.00 - INSOMNIA, UNSPECIFIED (31) Jaundice Code(s): R17 - UNSPECIFIED JAUNDICE (32) Knee effusion, left Code(s): M25.462 - EFFUSION, LEFT KNEE (33) Left arm numbness Code(s): R20.0 - ANESTHESIA OF SKIN (34) Left upper quadrant pain Code(s): R10.12 - LEFT UPPER QUADRANT PAIN (35) Myocardial infarct Code(s): I21.9 - ACUTE MYOCARDIAL INFARCTION, UNSPECIFIED (36) Neck muscle strain Code(s): S16.1XXA - STRAIN OF MUSCLE, FASCIA AND TENDON AT NECK LEVEL, INIT (37) Neck pain Code(s): M54.2 - CERVICALGIA (38) Pacemaker complications Code(s): T82.9XXA - UNSP COMP OF CARDIAC AND VASCULAR PROSTH DEV/GRFT, INIT (39) Polyarthritis Code(s): M13.0 - POLYARTHRITIS, UNSPECIFIED (40) Renal dysfunction Code(s): N28.9 - DISORDER OF KIDNEY AND URETER, UNSPECIFIED (41) Renal insufficiency Code(s): N28.9 - DISORDER OF KIDNEY AND URETER, UNSPECIFIED (42) Severe left ventricular systolic dysfunction Code(s): I51.9 - HEART DISEASE, UNSPECIFIED (43) Shortness of breath Code(s): R06.02 - SHORTNESS OF BREATH (44) Systolic CHF Code(s): I50.20 - UNSPECIFIED SYSTOLIC (CONGESTIVE) HEART FAILURE (45) Weight loss, unintentional Code(s): R63.4 - ABNORMAL WEIGHT LOSS Assessment/Plan - Problems (1) Acute on chronic systolic and diastolic heart failure, NYHA class 1 Assessment/Plan: Severe LV dysfunction. Carvedilol reduced to 3.125 mg daily due to hypotension, ?change in mental status. ACEI, spironolactone still held due to renal dysfunction, hypotension. On furosemide. F/u BUN/Cr, electrolytes, daily wt, Is and Os. 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 (2) Weakness Code(s): R53.1 - WEAKNESS (3) Acute on chronic renal insufficiency Code(s): N28.9 - DISORDER OF KIDNEY AND URETER, UNSPECIFIED; N18.9 - CHRONIC KIDNEY DISEASE, UNSPECIFIED (4) COPD (chronic obstructive pulmonary disease) Code(s): J44.9 - CHRONIC OBSTRUCTIVE PULMONARY DISEASE, UNSPECIFIED (5) Gout Code(s): M10.9 - GOUT, UNSPECIFIED (6) History of heart artery stent Code(s): Z95.5 - PRESENCE OF CORONARY ANGIOPLASTY IMPLANT AND GRAFT (7) Hyperlipidemia Code(s): E78.5 - HYPERLIPIDEMIA, UNSPECIFIED (8) Hypertension Code(s): I10 - ESSENTIAL (PRIMARY) HYPERTENSION (9) ICD (implantable cardioverter-defibrillator) in place Code(s): Z95.810 - PRESENCE OF AUTOMATIC (IMPLANTABLE) CARDIAC DEFIBRILLATOR
[2018-07-26] MEDS ORDERED: PT OWN MED DRAWER 7, Y5N ONE ×2 (09:29→10:30)
[2018-07-26] MEDS: CARVEDILOL 3.125 MG TABLET (FP) PO SCH (09:36)
[2018-07-26] MEDS: BUDESONIDE/FORMETEROL FUMARATE 160/4.5 mcg INHALER IH SCH ×2 (09:40→22:53)
[2018-07-26] MEDS: CHOLECALCIFEROL (VIT D3) 1,000 UNIT (25 MCG) TABLET PO SCH (09:40)
[2018-07-26] MEDS: FEBUXOSTAT 40 MG TAB PO SCH (09:40)
[2018-07-26] MEDS: SODIUM BICARBONATE 650 MG TABLET PO SCH ×2 (09:40→22:50)
[2018-07-26] MEDS: FUROSEMIDE 20 MG TABLET (FP) PO SCH (10:31)
[2018-07-26] MEDS ORDERED: ASPIRIN 81 MG CHEWABLE TABLETS PO ONE (11:40)
--- NOTE | 2018-07-26 13:37 | PN ---
Physical Exam: SUBJECTIVE: Patient seen and examined at bedside. no acute events overnight. denies cp, sob, fever, n/v/d. More alert and oriented today,wants to go home. OBJECTIVE: Vital Signs Period Temp Pulse Resp BP Sys/Robbins Pulse Ox Last 24 Hr 96.5 F-97.5 F 82-99 18-24 80-100/34-65 100-100 GENERAL:AOX 2, NAD. More alert and oriented today. HEENT: NCAT, PERRLA, EOMI, MMM LUNGS: Crackles at bases, improving HEART: RRR, no murmurs heard, defribilator in LUQ ABDOMEN: Soft, NTND, normoactive bowel sounds, no guarding, no rebound, no masses. fading purple ecchymosis in umbilical region along w/ petechia along abdomen, chest and legs, improving and almost resolved LOWER EXTREMITIES: warm, well-perfused. No calf tenderness. 2+ pitting edema. b /l foot/ankle swelling (worsening) and erythema, TTP. L toes are cold dusky blue /purple color, feet are warm, DP pulses are palpable NEUROLOGICAL: Cranial nerves II-XII intact. PSYCHIATRIC: Cooperative. SKIN: Warm, dry, normal turgor, no rashes or lesions noted Laboratory Results - last 24 hr 07/25/18 07/25/18 07/26/18 17:03 21:17 06:06 PT with INR INR PTT (Actin FS) Fibrinogen POC Glucometer 169 176 126 07/26/18 07/26/18 07/26/18 08:40 08:40 11:51 PT with INR 23.80 H INR 2.00 H PTT (Actin FS) 40.3 H Fibrinogen 402.0 D POC Glucometer 118 Active Medications Generic Name Dose Route Start Last Admin Trade Name Freq PRN Reason Stop Dose Admin Acetaminophen 650 mg 07/14/18 16:18 07/14/18 17:24 Tylenol - PO 650 mg Q4H PRN Administration PAIN LEVEL 6-10 Apixaban 5 mg 07/25/18 17:30 07/25/18 17:49 Eliquis - PO 5 mg Q24H [facility] Administration Aspirin 81 mg 07/27/18 10:00 Asa - PO DAILY [facility] Atorvastatin Calcium 40 mg 07/15/18 22:00 07/25/18 21:22 Lipitor - PO 40 mg HS [facility] Administration Budesonide/Formoterol Fumarate 2 puff 07/01/18 10:00 07/26/18 09:40 Symbicort 160/4.5mcg - IH 2 puff BID [facility] Administration Carvedilol 3.125 mg 07/27/18 10:00 Coreg - PO DAILY [facility] Cholecalciferol 5,000 unit 07/07/18 16:30 07/26/18 09:40 Vitamin D3 - PO 5,000 unit DAILY [facility] Administration Febuxostat 40 mg 07/01/18 12:00 07/26/18 09:40 Uloric - PO 40 mg DAILY [facility] Administration Furosemide 20 mg 07/25/18 14:15 07/26/18 10:31 Lasix - PO 20 mg DAILY [facility] Administration Insulin Aspart 1 vial 07/01/18 07:00 07/26/18 11:52 Novolog Vial Sliding Scale - SQ Not Given ACHS [facility] Protocol Olanzapine 2.5 mg 07/09/18 22:00 07/25/18 21:22 Zyprexa - PO 2.5 mg HS [facility] Administration Polyethylene Glycol 17 gm 07/10/18 13:04 07/22/18 10:51 Miralax (For Daily Use) - PO 17 grams DAILY PRN Administration CONSTIPATION Sodium Bicarbonate 650 mg 07/03/18 10:00 07/26/18 09:40 Sodium Bicarbonate - PO 650 mg BID [facility] Administration [id number] CT/ABDOMEN & PELVIS CT W/O CONTR HISTORY PROVIDED: Rule out bleed TECHNIQUE: Sequential axial images were obtained from the domes of the diaphragm through the symphysis pubis. The study is markedly limited without the use of any contrast material. There are bilateral pleural effusions, right greater than left. The heart is enlarged. No acute infiltrates are identified. There is a trace amount of ascites about the liver. The liver, spleen, pancreas, adrenal glands and kidneys demonstrate no gross abnormalities. Small renal cysts are present bilaterally. The gallbladder has been removed. There is no evidence of intra-abdominal or retroperitoneal lymphadenopathy or fluid collections. There is no evidence of pneumoperitoneum, bowel obstruction or intra-abdominal abscess. There is no CT evidence of acute appendicitis There is extensive diverticulosis coli with no evidence of acute diverticulitis. Examination of the pelvis demonstrates no evidence of pelvic masses, fluid collections or lymphadenopathy. The prostate gland is enlarged measuring 6.2 x 5.4 x 5.5 cm. There is no evidence of acute bony pathology. IMPRESSION: 1. Bilateral pleural effusions. 2. Trace ascites. 3. Extensive diverticulosis coli. 4. Prostatic enlargement. 5. No acute pathology within the abdomen or pelvis. Please see above discussion. [id number] RAD/ANKLE & FOOT-LEFT* [id number] RAD/ANKLE & FOOT-RIGHT* HISTORY PROVIDED: Pain and swelling AP, oblique and lateral projections of both feet and ankles reveals no evidence of fracture, dislocation or acute bone or joint abnormalities. Mild degenerative changes are present about the small joints of the feet and ankles. There is a well-circumscribed lytic lesion within the left navicular bone. This has a benign appearance and is not significant change since a prior study of 11/29/2015. There is also a small spur along the plantar surface of the left calcaneus. Mild soft tissue swelling is seen about the left lateral malleolus. IMPRESSION: Mild degenerative arthritis with no fracture or acute bone or joint abnormalities. Please see above discussion. Reported By: Lance Pitts MD 07/14/18 1522 [id number] US/DUPLEX VASCUL US-2LEGS [id number] US/DUPLEX ART. LEGS- LIMITED US BILATERAL LOWER EXTREMITY VENOUS ULTRASOUND Clinical information given: evaluate for DVT The exam was performed utilizing compression, grayscale, color flow and doppler sonography. There is no sonographic evidence of deep vein thrombosis. If there is clinical concern for possible isolated calf DVT or if there is a clinical diagnosis of uncomplicated superficial thrombophlebitis, then correlation with close follow up sonography is suggested. IMPRESSION: No DVT is identified involving either leg. Please see above. LEFT LOWER EXTREMITY ARTERIAL DOPPLER ULTRASOUND Clinical information: evaluate for arterial thrombus; cold left big toe with discoloration The exam was performed utilizing grayscale and Doppler sonography. Decreased monophasic flow is seen within the left posterior tibial artery. Exam coverage does not include the anterior tibial or peroneal arteries. Unremarkable triphasic flow is noted within the common femoral, superficial femoral and popliteal arteries. IMPRESSION: Decreased monophasic flow is seen within the left posterior tibial artery. Reported By: Bhavik Sargent MD 07/14/182007 [id number] RAD/BONE SURVEY (METASTATIC) Bone survey: Check for lytic lesions Chest: AP view of the chest reveals a large heart, unfolded aorta, multilead pacemaker, central congestive changes with questionable perihilar infiltrates, sharp angles and grossly intact bones with no sign of lytic or blastic changes. Skull: 2 views of the skull reveal no sign of blastic or lytic changes. There is demineralization of the clinoids. Lateral cervical spine: A single lateral view shows straightening with degenerative changes and wedging. Is no sign of blastic or lytic changes. There may be anterior clips or calcification in the prevertebral soft tissues by the upper cervical spine. Thoracic spine: AP and lateral views of the thoracic spine reveal scoliosis with minimal degenerative changes and no sign of blastic or lytic findings. There is a normal thoracic kyphosis. Lumbar spine: AP and lateral views are obscured in part by overlying contrast- filled loops of bowel. This is an incomplete evaluation. Blastic or lytic changes are not seen but is no sign of a gross fracture or subluxation. There is some straightening of the lumbar area. Pelvis: Single view of the pelvis is obscured in part by overlying contrast- filled loops of colon. What is seen shows no sign of blastic or lytic changes but this is an incomplete evaluation. Bilateral hips, femurs and knees: Blastic or lytic changes are not seen but is no sign of fracture or subluxation. Significant arthritic changes are not seen in the hips or knees. Right and left humerus: There is no sign of blastic or lytic changes. No sign of fracture or subluxation. Overall impression: No sign of blastic or lytic changes. No sign of a fracture. Limited visualization of the lumbar spine and pelvis due to overlying contrast filled loops of bowel. An AP view of the cervical spine has not been submitted. Correlation recommended. Reported By: Viktor Griffin MD 07/15/18 1737 [id number] US/DOPPLER,ABDOM ORGAN,COMP US [id number] US/KIDNEY / RENAL US Rule out renal vein thrombosis. Renal and Doppler ultrasound upper abdomen ultrasound dated renal ultrasound dated 06/17/2018 The right kidney measures 7.9 cm in sagittal length with a simple cyst measuring 2.1 x 1.8 cm. Another adjacent tiny cyst is present anteriorly measuring 7 x 6 mm. There is normal color and duplex evaluation of the right renal vein. Left kidney measures 9 cm in sagittal length with an upper pole partially exophytic simple cyst measuring 2.7 x 2.5 cm. Normal duplex evaluation of the left renal vein. There is no evidence of hydronephrosis or renal stones, bilaterally. Visualized portion of the liver appears unremarkable. Normal duplex evaluation of the inferior vena cava IMPRESSION: Bilateral renal simple cysts, as described above without evidence of gross renal stones or hydronephrosis. Patent right and left renal vein as well as a patent inferior vena cava. Reported By: Dallas Dutta MD 07/17/18 1013 ASSESSMENT/PLAN: 77 y/o M PMH HTN, HLD, LV dysfunction/CHF, CKD 4, CAD s/p stents, AL s/p defribilator, gout, DM, COPD due to smoking history?, who presented from Dr. Hood office with Weakness, poor PO intake, hypotension and found to have increasing confusion and ELLIOTT. There appears to have been a miscommunication between what senior lead project manager recommended and what the daughter gave. It appears as though the daughter continued to give the Lasix even though the patient was not supposed to be doing so. daughter has been concerned for a while about her father having dementia, on last admission pt was referred to Dr Munoz for an outpt dementia eval #? Metabolic encephalopathy vs suspected worsening dementia, poor PO intake. - Improving. -Consulted NeurologyTammy: suspects likely underlying Alzheimer vs frontotemporal dementia with superimposed metabolic encephalopathy with generalized weakness, poor cardiac status likely contributory as well. per neuro , no focality to suggest new cerebral ischemic event, no evidence of seizures, meningitis, etc -Dr. Connolly consulted -CT head w/o acute changes -MRI is not an option since has a PPM/defibrilator -encourage PO hydration -ammonia unlikely to be contributing to AMS, no need for lactulose, GI recs appreciated -cont to hold gabapentin to avoid worsening confusion, neuro recs appreciated -Vit B12, Folic acid elevated -ucx, RPR neg -psych consulted -c/w zyprexa per psych -design center consultant consulted, calorie count not completed, however PO intake improved as well as his mental status. -family initially decided for PEG, but given circumstances of improvement daughter is agreeable to no PEG #new petechiae and abdominal echymosis w/ elevated INR 1.79 (not on AC) and thrombocytopenia - unclear etiology. Echymosis improving. 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 H/H remains stable at baseline. no obvious source of bleed. Possibly 2/2 liver disease/injury and c/b vit K depletion 2/2 poor po intake/ malabsorbtion. Also noted w/ low fibrinogen, which may be component of mild chronic DIC?, however now fibrinogen nl. 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 nephro and heme recs appreciated, elevated BUN may be contributing but unclear at this time as levels of 100 may cause platelet dsfx but unclear if this is what is causing his bruising. -heme/onc consulted, [place] -corrected retic index is low indicating inadequate marrow response -CT A/P reviewed above, No acute pathology within the abdomen or pelvis -LDH, haptoglobin nl -FOBT neg -P and C ANCA, HERB neg -No evidence of Lupus anticoagulant -Mixing study: PT is elevated and PTT is nl, also Factor VII percentage is low. 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 s/p Argabotran, c/w eliquis 5mg q24h, Heme recs appreciated. # b/l foot/ankle swelling and erythema, TTP. L toes are cold dusky blue/purple color, DP pulses are palpable and heard on doppler - doesnt look infx or gout. likely represent emboli 2/2 chronic DIC?, as discussed above, vs cardiac etiology/CHF b/l foot XR to r/o frx reviewed above duplex neg DVT arterial reviewd above, Decreased monophasic flow within left posterior tibial artery. c/w Lipitor 40 HS vascular consult, French Echo does not show thrombi lasix 20 po per nephro #ELLIOTT on CKD stage4 2/2 volume depletion, baseline Cr is 1.8-2 - 3...2.6...2.4...2.2...2.4, poor po intake and was not receiving clinimix or IVF due to pulling his IVs - improving w/ encouragement of PO intake and lasix -nephro consulted, Sushil -UA, MM immuno w/u neg -FeUrea was 38.5% indicating slight tubular dysfunction -hold ACEi for now -encourage PO hydration -c/w PO bicarbonate for metabolic acidosis -metastatic series reviewed above, neg -Renal U/S reviewed above, showed no thrombosis #CHF with Severe LV dysfunction: may be contributing to leg swelling and poor toe perfusion, lasix per nephro, Echo w/ EF <15% -EKG was essentially unchanged since prior -cardio consult, Evy for optimization of HF meds, pt noted here w/ slightly low BP -carvedilol decreased bid to qd per cardio, for low BP -resume ASA for protection from atherosclerotic embolic events given that petechia, echymosis, and thrombocytopenia are resolving #Acute Transaminitis w/ elevated INR 1.79: likely 2/2 hepatic congestion 2/2 CHF w/ severe low EF, however component of ischemic injury may be present in setting of hypotension in the setting of volume depletion. The patient is not on any significant hepatotoxic medications. GI consulted, Dr. Camacho, and don' t think that he has hepatic encephalopathy or cirhosis given the lack of splenomegaly and normal liver size. - LFTs downtrending -hepatitis panel unremarkable -Ultrasound of the RUQ: fatty liver vs hepatocellular disease -c/w lipitor at higher dose of 40 given embolic events and decreased vascular flow as mentioned above -No need for rifaximin and lactulose and tx of CHF will benefit the liver and should improve the LFTs, GI recs appreciated -Repeat colonoscopy in 2021 oupt #Hx of gout with elevated Uric acid - no signs of gout c/w home febuxostat #elevated TSH, and FT4, -as per membership director most likely sick euthyroid. -will follow with Dr. Castaneda as an outpatient, for further w/u #DM: chronic -hold diabetic meds -ISS -BGM ACHS #CAD: chronic -resume ASA for protection from atherosclerotic embolic events given that petechia, echymosis, and thrombocytopenia are resolving #FEN -encourage PO hydration -replete prn -diabetic/sodium diet, on calorie count #Prophylaxis -APRIL neg. s/p Argabotran, c/w eliquis 5mg q24h, Heme recs appreciated. -scd b/l #Dispo -med surg -calorie count was not completed, however PO intake improved as well as his mental status. -family initially decided for PEG, but given circumstances of improvement daughter is agreeable to no PEG -pt would benefit from SNF/terminal operator placement, pending acceptance from insurance. repeat PT eval. Visit type - Emergency Visit Emergency Visit: Yes ED Registration Date: 07/01/18 Care time: The patient presented to the Emergency Department on the above date and was hospitalized for further evaluation of their emergent condition. - New Patient This patient is new to me today: Yes Date on this admission: 07/26/18 - Critical Care Critical Care patient: No
--- NOTE | 2018-07-26 15:19 | PN ---
Teaching Attending Note Name of Resident: Elmo Wheeler ATTENDING PHYSICIAN STATEMENT I saw and evaluated the patient. I reviewed the resident's note and discussed the case with the resident. I agree with the resident's findings and plan as documented. SUBJECTIVE: No fever or chills. he denies pain, he wants to go home OBJECTIVE: NAD, awake, alert, cooperative , knows location and age . CV: RRR, no MRG Lungs:decreased breath sounds at bases. Abd: soft, ND, NT, fading bruises in periubilical area. Nl BS Ext: pitting edema on both feet and legs .L leg and thigh edema > R . 2+ . L foot toes have purple discoloration ( 1,2,3, and 5th toes) . Dp 1+ b/l. warm feet. A/P: 77 y/o man with h/o HTN, HLP, systolic CHF, COPD, CKD, CAD s/p stenting, HI, ICD , gout, DM, and other medical problems who presented with general weakness. 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 INR elevated on eliquis - cont eliquis at the current dose - add aspirin in case atherosclerosis in Aorta as a cause for embolic event . plt recovered - cont with lasix - cont coreg , but change to daily as BP has been in 80s - cont SSI - No PEG at this time patient was declined for SNF by his insurance . will repeat PT eval . ? pen[facility]entiary placement.
[2018-07-26] MEDS: APIXABAN 5 MG TABLET PO SCH (16:37)
--- NOTE | 2018-07-26 18:29 | PN ---
Progress Note (short form) - Note Progress Note: Renal follow up for ELLIOTT Pt seen and examined at the bedside awake and alert no overnight events coughing this am Vital Signs Temperature 97.6 F 07/26/18 17:18 Pulse Rate 81 07/26/18 17:18 Respiratory Rate 20 07/26/18 17:18 Blood Pressure 94/45 L 07/26/18 17:18 O2 Sat by Pulse Oximetry (%) 100 07/26/18 09:00 Intake & Output 07/23/18 07/24/18 07/25/18 07/26/18 23:59 23:59 23:59 23:59 Intake Total 54.5 658 580 300 Output Total 900 800 300 Balance -845.5 -142 580 0 Weight 92.249 kg 92.034 kg 94.347 kg 93.468 kg Dec BS soft NT/ND + LE edema no bladder distension CBC, BMP 07/25/18 09:14 07/25/18 09:14 Current Medications Acetaminophen (Tylenol -) 650 mg PO Q4H PRN PRN Reason: PAIN LEVEL 6-10 Last Admin: 07/14/18 17:24 Dose: 650 mg Apixaban (Eliquis -) 5 mg PO Q24H [facility] Last Admin: 07/26/18 16:37 Dose: 5 mg Aspirin (Asa -) 81 mg PO DAILY [facility] Atorvastatin Calcium (Lipitor -) 40 mg PO HS [facility] Last Admin: 07/25/18 21:22 Dose: 40 mg Budesonide/Formoterol Fumarate (Symbicort 160/4.5mcg -) 2 puff IH BID [facility] Last Admin: 07/26/18 09:40 Dose: 2 puff Carvedilol (Coreg -) 3.125 mg PO DAILY [facility] Cholecalciferol (Vitamin D3 -) 5,000 unit PO DAILY [facility] Last Admin: 07/26/18 09:40 Dose: 5,000 unit Febuxostat (Uloric -) 40 mg PO DAILY [facility] Last Admin: 07/26/18 09:40 Dose: 40 mg Furosemide (Lasix -) 20 mg PO DAILY [facility] Last Admin: 07/26/18 10:31 Dose: 20 mg Insulin Aspart (Novolog Vial Sliding Scale -) 1 vial SQ ACHS [facility]; Protocol Last Admin: 07/26/18 16:37 Dose: 2 units Olanzapine (Zyprexa -) 2.5 mg PO HS [facility] Last Admin: 07/25/18 21:22 Dose: 2.5 mg Polyethylene Glycol (Miralax (For Daily Use) -) 17 gm PO DAILY PRN PRN Reason: CONSTIPATION Last Admin: 07/22/18 10:51 Dose: 17 grams Sodium Bicarbonate (Sodium Bicarbonate -) 650 mg PO BID [facility] Last Admin: 07/26/18 09:40 Dose: 650 mg 77 year old gentleman with hx of CKD stage 3 (baseline Cr 1.8-2), CAD s/p PCI, CHF with very low LVEF, hyperlipidemia, hypertension, AICD placement, DM, COPD who presented from Dr. Connolly's office with hypotension and found to have increasing confusion and ELLIOTT. #ELLIOTT on CKD due to volume depletion vs. HRS vs. Cardio-renal syndrome vs. renal injury in setting of DIC #Hypotension #Altered mental status r/o dementia vs. other cause #DM #Hypertension #CHF #metabolic acidosis with respiratory compensation Renal function unchanged despite high bun no urgent need for DELIVERY ROOM SUPERVISOR continue present management including lasix and sodium bicarbonate Trend renal function and electrolytes Mikhail Lnig DO
--- NOTE | 2018-07-26 19:53 | PN ---
Progress Note (short form) - Note Progress Note: Patient lorie nd examined Purplish discoloration of toes bilaterally improved on the right Mildly confused Left foot toes with discoloration Last Vital Signs Temp Pulse Resp BP Pulse Ox 97.6 F 81 20 94/45 L 100 07/26/18 17:18 07/26/18 17:18 07/26/18 17:18 07/26/18 17:18 07/26/18 09:00 Cor: RSR, No murmurs, No gallops Lungs: Clear to P&A Abd: Soft, Normal bowel sounds, No organomegaly Ext:No significant edema Left foot oes with purplish discoloration and tenderness abdominal wall rash --ecchymosis, fading Abnormal Lab Results 07/26/18 08:40 PT with INR 23.80 H INR 2.00 H PTT (Actin FS) 40.3 H Active Medications Generic Name Dose Route Start Last Admin Trade Name Freq PRN Reason Stop Dose Admin Acetaminophen 650 mg 07/14/18 16:18 07/14/18 17:24 Tylenol - PO 650 mg Q4H PRN Administration PAIN LEVEL 6-10 Apixaban 5 mg 07/25/18 17:30 07/26/18 16:37 Eliquis - PO 5 mg Q24H [facility] Administration Aspirin 81 mg 07/27/18 10:00 Asa - PO DAILY [facility] Atorvastatin Calcium 40 mg 07/15/18 22:00 07/25/18 21:22 Lipitor - PO 40 mg HS [facility] Administration Budesonide/Formoterol Fumarate 2 puff 07/01/18 10:00 07/26/18 09:40 Symbicort 160/4.5mcg - IH 2 puff BID [facility] Administration Carvedilol 3.125 mg 07/27/18 10:00 Coreg - PO DAILY [facility] Cholecalciferol 5,000 unit 07/07/18 16:30 07/26/18 09:40 Vitamin D3 - PO 5,000 unit DAILY [facility] Administration Febuxostat 40 mg 07/01/18 12:00 07/26/18 09:40 Uloric - PO 40 mg DAILY [facility] Administration Furosemide 20 mg 07/25/18 14:15 07/26/18 10:31 Lasix - PO 20 mg DAILY [facility] Administration Insulin Aspart 1 vial 07/01/18 07:00 06/17/19 16:37 Novolog Vial Sliding Scale - SQ 2 units ACHS [facility] Administration Protocol Olanzapine 2.5 mg 07/09/18 22:00 07/25/18 21:22 Zyprexa - PO 2.5 mg HS [facility] Administration Polyethylene Glycol 17 gm 07/10/18 13:04 07/22/18 10:51 Miralax (For Daily Use) - PO 17 grams DAILY PRN Administration CONSTIPATION Sodium Bicarbonate 650 mg 07/03/18 10:00 07/26/18 09:40 Sodium Bicarbonate - PO 650 mg BID [facility] Administration A/P 77 y/o patient with ELLIOTT/CKD, DM, HTN,HLD, ? baseline dementia, pacemaker, now with purplish discoloration of toes bilaterally Thrombocytopenia ? low grade DIC vs ? congestive hepatopathy purplish discoloration of toes HIT 1.8 APRIL negative On eliquis 5mg daily will check antiphospholipid panel, cryoglobulins
[2018-07-26] MEDS: OLANZapine 2.5 MG TABLET PO SCH (22:50)
[2018-07-26] MEDS: ATORVASTATIN CA 40 MG TABLET (FP) PO SCH (22:50)
[2018-07-26] MEDS ORDERED: INSULIN (NOVOLOG) ASPART 100 UNITS/ML 10ML VIAL ONE (23:08)
[2018-07-27] MEDS: INSULIN SLIDING SCALE (NOVOLOG) 1 VIAL SQ SCH ×2 (06:18→11:45)
--- NOTE | 2018-07-27 06:26 | PN ---
Physical Exam: SUBJECTIVE: Patient seen and examined at bedside. no acute events overnight. denies cp, sob, fever, n/v/d. More alert and oriented today,wants to go home. OBJECTIVE: Vital Signs Period Temp Pulse Resp BP Sys/Robbins Pulse Ox Last 24 Hr 97.3 F-97.8 F 76-95 20-22 90-98/45-67 100 GENERAL:AOX 2, NAD. More alert and oriented today. HEENT: NCAT, PERRLA, EOMI, MMM LUNGS: Crackles at bases, improving HEART: RRR, no murmurs heard, defribilator in LUQ ABDOMEN: Soft, NTND, normoactive bowel sounds, no guarding, no rebound, no masses. fading purple ecchymosis in umbilical region along w/ petechia along abdomen, chest and legs, improving and almost resolved LOWER EXTREMITIES: warm, well-perfused. No calf tenderness. 2-3+ pitting edema. b/l foot/ankle swelling (worsening), TTP. L toes are cold dusky blue/purple color, 5th digit pink/blue, feet are warm, DP pulses are palpable NEUROLOGICAL: Cranial nerves II-XII intact. PSYCHIATRIC: Cooperative. SKIN: Warm, dry, normal turgor, no rashes or lesions noted Laboratory Results - last 24 hr 07/26/18 07/26/18 07/26/18 08:40 08:40 11:51 PT with INR 23.80 H INR 2.00 H PTT (Actin FS) 40.3 H Fibrinogen 402.0 D POC Glucometer 118 07/26/18 07/26/18 07/27/18 16:36 22:52 06:17 PT with INR INR PTT (Actin FS) Fibrinogen POC Glucometer 198 158 130 Active Medications Generic Name Dose Route Start Last Admin Trade Name Freq PRN Reason Stop Dose Admin Acetaminophen 650 mg 07/14/18 16:18 07/14/18 17:24 Tylenol - PO 650 mg Q4H PRN Administration PAIN LEVEL 6-10 Apixaban 5 mg 07/25/18 17:30 07/26/18 16:37 Eliquis - PO 5 mg Q24H CLIVE Administration Aspirin 81 mg 07/27/18 10:00 Asa - PO DAILY CLIVE Atorvastatin Calcium 40 mg 07/15/18 22:00 07/26/18 22:50 Lipitor - PO 40 mg HS CLIVE Administration Budesonide/Formoterol Fumarate 2 puff 07/01/18 10:00 07/26/18 22:53 Symbicort 160/4.5mcg - IH 2 puff BID CLIVE Administration Carvedilol 3.125 mg 07/27/18 10:00 Coreg - PO DAILY CLIVE Cholecalciferol 5,000 unit 07/07/18 16:30 07/26/18 09:40 Vitamin D3 - PO 5,000 unit DAILY CLIVE Administration Febuxostat 40 mg 07/01/18 12:00 07/26/18 09:40 Uloric - PO 40 mg DAILY CLIVE Administration Furosemide 20 mg 07/25/18 14:15 07/26/18 10:31 Lasix - PO 20 mg DAILY CLIVE Administration Insulin Aspart 1 vial 07/01/18 07:00 07/27/18 06:18 Novolog Vial Sliding Scale - SQ Not Given ACHS CLIVE Protocol Olanzapine 2.5 mg 07/09/18 22:00 07/26/18 22:50 Zyprexa - PO 2.5 mg HS CLIVE Administration Polyethylene Glycol 17 gm 07/10/18 13:04 07/22/18 10:51 Miralax (For Daily Use) - PO 17 grams DAILY PRN Administration CONSTIPATION Sodium Bicarbonate 650 mg 07/03/18 10:00 07/26/18 22:50 Sodium Bicarbonate - PO 650 mg BID CLIVE Administration [id number] CT/ABDOMEN & PELVIS CT W/O CONTR HISTORY PROVIDED: Rule out bleed TECHNIQUE: Sequential axial images were obtained from the domes of the diaphragm through the symphysis pubis. The study is markedly limited without the use of any contrast material. There are bilateral pleural effusions, right greater than left. The heart is enlarged. No acute infiltrates are identified. There is a trace amount of ascites about the liver. The liver, spleen, pancreas, adrenal glands and kidneys demonstrate no gross abnormalities. Small renal cysts are present bilaterally. The gallbladder has been removed. There is no evidence of intra-abdominal or retroperitoneal lymphadenopathy or fluid collections. There is no evidence of pneumoperitoneum, bowel obstruction or intra-abdominal abscess. There is no CT evidence of acute appendicitis There is extensive diverticulosis coli with no evidence of acute diverticulitis. Examination of the pelvis demonstrates no evidence of pelvic masses, fluid collections or lymphadenopathy. The prostate gland is enlarged measuring 6.2 x 5.4 x 5.5 cm. There is no evidence of acute bony pathology. IMPRESSION: 1. Bilateral pleural effusions. 2. Trace ascites. 3. Extensive diverticulosis coli. 4. Prostatic enlargement. 5. No acute pathology within the abdomen or pelvis. Please see above discussion. [id number] RAD/ANKLE & FOOT-LEFT* [id number] RAD/ANKLE & FOOT-RIGHT* HISTORY PROVIDED: Pain and swelling AP, oblique and lateral projections of both feet and ankles reveals no evidence of fracture, dislocation or acute bone or joint abnormalities. Mild degenerative changes are present about the small joints of the feet and ankles. There is a well-circumscribed lytic lesion within the left navicular bone. This has a benign appearance and is not significant change since a prior study of 11/29/2015. There is also a small spur along the plantar surface of the left calcaneus. Mild soft tissue swelling is seen about the left lateral malleolus. IMPRESSION: Mild degenerative arthritis with no fracture or acute bone or joint abnormalities. Please see above discussion. Reported By: Lance Pitts MD 07/14/18 1522 [id number] US/DUPLEX VASCUL US-2LEGS [id number] US/DUPLEX ART. LEGS- LIMITED US BILATERAL LOWER EXTREMITY VENOUS ULTRASOUND Clinical information given: evaluate for DVT The exam was performed utilizing compression, grayscale, color flow and doppler sonography. There is no sonographic evidence of deep vein thrombosis. If there is clinical concern for possible isolated calf DVT or if there is a clinical diagnosis of uncomplicated superficial thrombophlebitis, then correlation with close follow up sonography is suggested. IMPRESSION: No DVT is identified involving either leg. Please see above. LEFT LOWER EXTREMITY ARTERIAL DOPPLER ULTRASOUND Clinical information: evaluate for arterial thrombus; cold left big toe with discoloration The exam was performed utilizing grayscale and Doppler sonography. Decreased monophasic flow is seen within the left posterior tibial artery. Exam coverage does not include the anterior tibial or peroneal arteries. Unremarkable triphasic flow is noted within the common femoral, superficial femoral and popliteal arteries. IMPRESSION: Decreased monophasic flow is seen within the left posterior tibial artery. Reported By: Bhavik Sargent MD 07/14/182007-0098 RAD/BONE SURVEY (METASTATIC) Bone survey: Check for lytic lesions Chest: AP view of the chest reveals a large heart, unfolded aorta, multilead pacemaker, central congestive changes with questionable perihilar infiltrates, sharp angles and grossly intact bones with no sign of lytic or blastic changes. Skull: 2 views of the skull reveal no sign of blastic or lytic changes. There is demineralization of the clinoids. Lateral cervical spine: A single lateral view shows straightening with degenerative changes and wedging. Is no sign of blastic or lytic changes. There may be anterior clips or calcification in the prevertebral soft tissues by the upper cervical spine. Thoracic spine: AP and lateral views of the thoracic spine reveal scoliosis with minimal degenerative changes and no sign of blastic or lytic findings. There is a normal thoracic kyphosis. Lumbar spine: AP and lateral views are obscured in part by overlying contrast- filled loops of bowel. This is an incomplete evaluation. Blastic or lytic changes are not seen but is no sign of a gross fracture or subluxation. There is some straightening of the lumbar area. Pelvis: Single view of the pelvis is obscured in part by overlying contrast- filled loops of colon. What is seen shows no sign of blastic or lytic changes but this is an incomplete evaluation. Bilateral hips, femurs and knees: Blastic or lytic changes are not seen but is no sign of fracture or subluxation. Significant arthritic changes are not seen in the hips or knees. Right and left humerus: There is no sign of blastic or lytic changes. No sign of fracture or subluxation. Overall impression: No sign of blastic or lytic changes. No sign of a fracture. Limited visualization of the lumbar spine and pelvis due to overlying contrast filled loops of bowel. An AP view of the cervical spine has not been submitted. Correlation recommended. Reported By: Viktor Griffin MD 07/15/18 1737 [id number] US/DOPPLER,ABDOM ORGAN,COMP US [id number] US/KIDNEY / RENAL US Rule out renal vein thrombosis. Renal and Doppler ultrasound upper abdomen ultrasound dated renal ultrasound dated 06/17/2018 The right kidney measures 7.9 cm in sagittal length with a simple cyst measuring 2.1 x 1.8 cm. Another adjacent tiny cyst is present anteriorly measuring 7 x 6 mm. There is normal color and duplex evaluation of the right renal vein. Left kidney measures 9 cm in sagittal length with an upper pole partially exophytic simple cyst measuring 2.7 x 2.5 cm. Normal duplex evaluation of the left renal vein. There is no evidence of hydronephrosis or renal stones, bilaterally. Visualized portion of the liver appears unremarkable. Normal duplex evaluation of the inferior vena cava IMPRESSION: Bilateral renal simple cysts, as described above without evidence of gross renal stones or hydronephrosis. Patent right and left renal vein as well as a patent inferior vena cava. Reported By: Dallas Dutta MD 07/17/18 1013 ASSESSMENT/PLAN: 77 y/o M PMH HTN, HLD, LV dysfunction/CHF, CKD 4, CAD s/p stents, AR s/p defribilator, gout, DM, COPD due to smoking history?, who presented from Dr. Hood office with Weakness, poor PO intake, hypotension and found to have increasing confusion and ELLIOTT. There appears to have been a miscommunication between what livestock yard supervisor recommended and what the daughter gave. It appears as though the daughter continued to give the Lasix even though the patient was not supposed to be doing so. daughter has been concerned for a while about her father having dementia, on last admission pt was referred to Dr Munoz for an outpt dementia eval #? Metabolic encephalopathy vs suspected worsening dementia, poor PO intake. - Improving. -Consulted NeurologyTammy: suspects likely underlying Alzheimer vs frontotemporal dementia with superimposed metabolic encephalopathy with generalized weakness, poor cardiac status likely contributory as well. per neuro , no focality to suggest new cerebral ischemic event, no evidence of seizures, meningitis, etc -Dr. Connolly consulted -CT head w/o acute changes -MRI is not an option since has a PPM/defibrilator -encourage PO hydration -ammonia unlikely to be contributing to AMS, no need for lactulose, GI recs appreciated -cont to hold gabapentin to avoid worsening confusion, neuro recs appreciated -Vit B12, Folic acid elevated -ucx, RPR neg -psych consulted -c/w zyprexa per psych -motor lodge clerk consulted, calorie count not completed, however PO intake improved as well as his mental status. -family initially decided for PEG, but given circumstances of improvement daughter is agreeable to no PEG #new petechiae and abdominal echymosis w/ elevated INR 1.79 (not on AC) and thrombocytopenia - unclear etiology. Echymosis improving. 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 H/H remains stable at baseline. no obvious source of bleed. Possibly 2/2 liver disease/injury and c/b vit K depletion 2/2 poor po intake/ malabsorbtion. Also noted w/ low fibrinogen, which may be component of mild chronic DIC?, however now fibrinogen nl. 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 nephro and heme recs appreciated, elevated BUN may be contributing but unclear at this time as levels of 100 may cause platelet dsfx but unclear if this is what is causing his bruising. -heme/onc consulted, [place] -corrected retic index is low indicating inadequate marrow response -CT A/P reviewed above, No acute pathology within the abdomen or pelvis -LDH, haptoglobin nl -FOBT neg -P and C ANCA, HERB neg -No evidence of Lupus anticoagulant -Mixing study: PT is elevated and PTT is nl, also Factor VII percentage is low. 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 s/p Argabotran, c/w eliquis 5mg q24h, Heme recs appreciated. -heme to order antiphospholipid panel, cryoglobulins # b/l foot/ankle swelling and erythema, TTP. L toes are cold dusky blue/purple color, DP pulses are palpable and heard on doppler - doesnt look infx or gout. likely represent emboli 2/2 chronic DIC?, as discussed above, vs cardiac etiology/CHF b/l foot XR to r/o frx reviewed above duplex neg DVT arterial reviewd above, Decreased monophasic flow within left posterior tibial artery. c/w Lipitor 40 HS vascular consult, French Echo does not show thrombi lasix 20 po per nephro #ELLIOTT on CKD stage4 2/2 volume depletion, baseline Cr is 1.8-2 - 3...2.6...2.4...2.2...2.4...2.5, poor po intake and was not receiving clinimix or IVF due to pulling his IVs - improving w/ encouragement of PO intake and lasix -nephro consulted, Sushil -UA, MM immuno w/u neg -hold ACEi for now -encourage PO hydration -c/w PO bicarbonate for metabolic acidosis -metastatic series reviewed above, neg -Renal U/S reviewed above, showed no thrombosis #CHF with Severe LV dysfunction: may be contributing to leg swelling and poor toe perfusion, lasix per nephro, Echo w/ EF <15% -EKG was essentially unchanged since prior -cardio consult, Evy for optimization of HF meds, pt noted here w/ slightly low BP -carvedilol decreased bid to qd per cardio, for low BP -ASA resumed for protection from atherosclerotic embolic events given that petechia, echymosis, and thrombocytopenia are resolving #Acute Transaminitis w/ elevated INR 1.79: likely 2/2 hepatic congestion 2/2 CHF w/ severe low EF, however component of ischemic injury may be present in setting of hypotension in the setting of volume depletion. The patient is not on any significant hepatotoxic medications. GI consulted, Dr. Camacho, and don' t think that he has hepatic encephalopathy or cirhosis given the lack of splenomegaly and normal liver size. - LFTs downtrending -hepatitis panel unremarkable -Ultrasound of the RUQ: fatty liver vs hepatocellular disease -c/w lipitor at higher dose of 40 given embolic events and decreased vascular flow as mentioned above -No need for rifaximin and lactulose and tx of CHF will benefit the liver and should improve the LFTs, GI recs appreciated -Repeat colonoscopy in 2021 oupt #Hx of gout with elevated Uric acid - no signs of gout c/w home febuxostat #elevated TSH, and FT4, -as per toll bridge attendant most likely sick euthyroid. -will follow with Dr. Castaneda as an outpatient, for further w/u #DM: chronic -hold diabetic meds -ISS -BGM ACHS #CAD: chronic -ASA resumed for protection from atherosclerotic embolic events given that petechia, echymosis, and thrombocytopenia are resolving #FEN -encourage PO hydration -replete prn -diabetic/sodium diet, on calorie count #Prophylaxis -APRIL neg. s/p Argabotran, c/w eliquis 5mg q24h, Heme recs appreciated. -scd b/l #Dispo -med surg -calorie count was not completed, however PO intake improved as well as his mental status. -family initially decided for PEG, but given circumstances of improvement daughter is agreeable to no PEG -pt would benefit from SNF/half-way placement, pending acceptance from insurance. repeat PT eval. Visit type - Emergency Visit Emergency Visit: Yes ED Registration Date: 07/01/18 Care time: The patient presented to the Emergency Department on the above date and was hospitalized for further evaluation of their emergent condition. - New Patient This patient is new to me today: Yes Date on this admission: 07/27/18 - Critical Care Critical Care patient: No
[2018-07-27 07:49] LABS: HEMATOCRIT 30.2 % (35.4-49); HEMOGLOBIN 9.6 GM/dL (11.7-16.9); MCHC 31.9 g/dl (32.0-35.9); MEAN CELL VOLUME 90.8 fl (80-96); MEAN PLT VOLUME 8.5 fl (7.5-11.1); PLATELET COUNT 176 K/MM3 (134-434); RBC 3.32 M/mm3 (4.00-5.60); WHITE BLOOD COUNT 6.5 K/mm3 (4.0-10.0)
[2018-07-27 08:06] LABS: CALCIUM 7.7 mg/dL (8.5-10.1); CREATININE 2.5 mg/dL (0.55-1.3); POTASSIUM 4.7 mmol/L (3.5-5.1)
[2018-07-27 08:17] LABS: BLOOD UREA NITROGEN 118.3 mg/dL (7-18)
[2018-07-27] MEDS ORDERED: PT OWN MED DRAWER 7, Y5N ONE (09:34)
[2018-07-27] MEDS: FEBUXOSTAT 40 MG TAB PO SCH (09:37)
[2018-07-27] MEDS: BUDESONIDE/FORMETEROL FUMARATE 160/4.5 mcg INHALER IH SCH (09:38)
[2018-07-27] MEDS: FUROSEMIDE 20 MG TABLET (FP) PO SCH (09:38)
[2018-07-27] MEDS: CHOLECALCIFEROL (VIT D3) 1,000 UNIT (25 MCG) TABLET PO SCH (09:38)
[2018-07-27] MEDS: SODIUM BICARBONATE 650 MG TABLET PO SCH (09:38)
[2018-07-27] MEDS ORDERED: ASPIRIN 81 MG CHEWABLE TABLETS PO SCH (10:00)
[2018-07-27] MEDS ORDERED: CARVEDILOL 3.125 MG TABLET (FP) PO SCH (10:00)
[2018-07-27 11:16] VITALS: BP 96/67; PULSE 76; TEMP 98.3
[2018-07-27] MEDS: POLYETHYLENE GLYCOL 3350 119 GM BTL PO PRN (11:41)
[2018-07-27] MEDS ORDERED: SENNOSIDES 8.6MG TABLET (FP) PO ONE (11:45)
[2018-07-27] MEDS ORDERED: DOCUSATE SODIUM 100 MG CAPSULE (FP) PO SCH (14:00)
--- NOTE | 2018-07-27 15:30 | DS ---
Physical Exam: SUBJECTIVE: Patient seen and examined at bedside. no acute events overnight. denies cp, sob, fever, n/v/d. More alert and oriented today,wants to go home. OBJECTIVE: Vital Signs Period Temp Pulse Resp BP Sys/Robbins Pulse Ox Last 24 Hr 97.4 F-98.3 F 76-97 18-20 94-98/45-67 100 PHYSICAL EXAM GENERAL:AOX 2, NAD. More alert and oriented today. HEENT: NCAT, PERRLA, EOMI, MMM LUNGS: Crackles at bases, improving HEART: RRR, no murmurs heard, defribilator in LUQ ABDOMEN: Soft, NTND, normoactive bowel sounds, no guarding, no rebound, no masses. fading purple ecchymosis in umbilical region along w/ petechia along abdomen, chest and legs, improving and almost resolved LOWER EXTREMITIES: warm, well-perfused. No calf tenderness. 2-3+ pitting edema. b/l foot/ankle swelling (worsening), TTP. L toes are cold dusky blue/purple color, 5th digit pink/blue, feet are warm, DP pulses are palpable NEUROLOGICAL: Cranial nerves II-XII intact. PSYCHIATRIC: Cooperative. SKIN: Warm, dry, normal turgor, no rashes or lesions noted LABS Laboratory Results - last 24 hr 07/26/18 07/26/18 07/27/18 16:36 22:52 06:10 WBC 6.5 RBC 3.32 L Hgb 9.6 L Hct 30.2 L MCV 90.8 MCH 29.0 MCHC 31.9 L RDW 18.0 H Plt Count 176 D MPV 8.5 Sodium Potassium Chloride Carbon Dioxide Anion Gap BUN Creatinine Est GFR (CKD-EPI)AfAm Est GFR (CKD-EPI)NonAf POC Glucometer 198 158 Random Glucose Calcium 07/27/18 07/27/18 07/27/18 06:17 06:40 11:44 WBC RBC Hgb Hct MCV MCH MCHC RDW Plt Count MPV Sodium 135 L Potassium 4.7 Chloride 102 Carbon Dioxide 23 Anion Gap 9 BUN 118.3 H* Creatinine 2.5 H Est GFR (CKD-EPI)AfAm 27.86 Est GFR (CKD-EPI)NonAf 24.04 POC Glucometer 130 170 Random Glucose 148 H Calcium 7.7 L [id number] CT/ABDOMEN & PELVIS CT W/O CONTR HISTORY PROVIDED: Rule out bleed TECHNIQUE: Sequential axial images were obtained from the domes of the diaphragm through the symphysis pubis. The study is markedly limited without the use of any contrast material. There are bilateral pleural effusions, right greater than left. The heart is enlarged. No acute infiltrates are identified. There is a trace amount of ascites about the liver. The liver, spleen, pancreas, adrenal glands and kidneys demonstrate no gross abnormalities. Small renal cysts are present bilaterally. The gallbladder has been removed. There is no evidence of intra-abdominal or retroperitoneal lymphadenopathy or fluid collections. There is no evidence of pneumoperitoneum, bowel obstruction or intra-abdominal abscess. There is no CT evidence of acute appendicitis There is extensive diverticulosis coli with no evidence of acute diverticulitis. Examination of the pelvis demonstrates no evidence of pelvic masses, fluid collections or lymphadenopathy. The prostate gland is enlarged measuring 6.2 x 5.4 x 5.5 cm. There is no evidence of acute bony pathology. IMPRESSION: 1. Bilateral pleural effusions. 2. Trace ascites. 3. Extensive diverticulosis coli. 4. Prostatic enlargement. 5. No acute pathology within the abdomen or pelvis. Please see above discussion. [id number] RAD/ANKLE & FOOT-LEFT* [id number] RAD/ANKLE & FOOT-RIGHT* HISTORY PROVIDED: Pain and swelling AP, oblique and lateral projections of both feet and ankles reveals no evidence of fracture, dislocation or acute bone or joint abnormalities. Mild degenerative changes are present about the small joints of the feet and ankles. There is a well-circumscribed lytic lesion within the left navicular bone. This has a benign appearance and is not significant change since a prior study of 11/29/2015. There is also a small spur along the plantar surface of the left calcaneus. Mild soft tissue swelling is seen about the left lateral malleolus. IMPRESSION: Mild degenerative arthritis with no fracture or acute bone or joint abnormalities. Please see above discussion. Reported By: Lance Pitts MD 07/14/18 1522 [id number] US/DUPLEX VASCUL US-2LEGS [id number] US/DUPLEX ART. LEGS- LIMITED US BILATERAL LOWER EXTREMITY VENOUS ULTRASOUND Clinical information given: evaluate for DVT The exam was performed utilizing compression, grayscale, color flow and doppler sonography. There is no sonographic evidence of deep vein thrombosis. If there is clinical concern for possible isolated calf DVT or if there is a clinical diagnosis of uncomplicated superficial thrombophlebitis, then correlation with close follow up sonography is suggested. IMPRESSION: No DVT is identified involving either leg. Please see above. LEFT LOWER EXTREMITY ARTERIAL DOPPLER ULTRASOUND Clinical information: evaluate for arterial thrombus; cold left big toe with discoloration The exam was performed utilizing grayscale and Doppler sonography. Decreased monophasic flow is seen within the left posterior tibial artery. Exam coverage does not include the anterior tibial or peroneal arteries. Unremarkable triphasic flow is noted within the common femoral, superficial femoral and popliteal arteries. IMPRESSION: Decreased monophasic flow is seen within the left posterior tibial artery. Reported By: Bhavik Sargent MD 07/14/182007 [id number] RAD/BONE SURVEY (METASTATIC) Bone survey: Check for lytic lesions Chest: AP view of the chest reveals a large heart, unfolded aorta, multilead pacemaker, central congestive changes with questionable perihilar infiltrates, sharp angles and grossly intact bones with no sign of lytic or blastic changes. Skull: 2 views of the skull reveal no sign of blastic or lytic changes. There is demineralization of the clinoids. Lateral cervical spine: A single lateral view shows straightening with degenerative changes and wedging. Is no sign of blastic or lytic changes. There may be anterior clips or calcification in the prevertebral soft tissues by the upper cervical spine. Thoracic spine: AP and lateral views of the thoracic spine reveal scoliosis with minimal degenerative changes and no sign of blastic or lytic findings. There is a normal thoracic kyphosis. Lumbar spine: AP and lateral views are obscured in part by overlying contrast- filled loops of bowel. This is an incomplete evaluation. Blastic or lytic changes are not seen but is no sign of a gross fracture or subluxation. There is some straightening of the lumbar area. Pelvis: Single view of the pelvis is obscured in part by overlying contrast- filled loops of colon. What is seen shows no sign of blastic or lytic changes but this is an incomplete evaluation. Bilateral hips, femurs and knees: Blastic or lytic changes are not seen but is no sign of fracture or subluxation. Significant arthritic changes are not seen in the hips or knees. Right and left humerus: There is no sign of blastic or lytic changes. No sign of fracture or subluxation. Overall impression: No sign of blastic or lytic changes. No sign of a fracture. Limited visualization of the lumbar spine and pelvis due to overlying contrast filled loops of bowel. An AP view of the cervical spine has not been submitted. Correlation recommended. Reported By: Viktor Griffin MD 07/15/18 1737 [id number] US/DOPPLER,ABDOM ORGAN,COMP US [id number] US/KIDNEY / RENAL US Rule out renal vein thrombosis. Renal and Doppler ultrasound upper abdomen ultrasound dated renal ultrasound dated 06/17/2018 The right kidney measures 7.9 cm in sagittal length with a simple cyst measuring 2.1 x 1.8 cm. Another adjacent tiny cyst is present anteriorly measuring 7 x 6 mm. There is normal color and duplex evaluation of the right renal vein. Left kidney measures 9 cm in sagittal length with an upper pole partially exophytic simple cyst measuring 2.7 x 2.5 cm. Normal duplex evaluation of the left renal vein. There is no evidence of hydronephrosis or renal stones, bilaterally. Visualized portion of the liver appears unremarkable. Normal duplex evaluation of the inferior vena cava IMPRESSION: Bilateral renal simple cysts, as described above without evidence of gross renal stones or hydronephrosis. Patent right and left renal vein as well as a patent inferior vena cava. Reported By: Dallas Dutta MD 07/17/18 1013 HOSPITAL COURSE: Date of Admission:07/01/18 Date of Discharge: 07/27/18 77 y/o M PMH HTN, HLD, LV dysfunction/CHF, CKD 4, CAD s/p stents, CO s/p defribilator, gout, DM, COPD due to smoking history?, who presented from Dr. Hood office with Weakness, poor PO intake, hypotension and found to have increasing confusion and ELLIOTT. There appears to have been a miscommunication between what chief librarian circulation department recommended and what the daughter gave. It appears as though the daughter continued to give the Lasix even though the patient was not supposed to be doing so. daughter has been concerned for a while about her father having dementia, on last admission pt was referred to Dr Munoz for an outpt dementia eval 1) Admitted for ?Acute Metabolic encephalopathy vs suspected worsening dementia in the setting of poor PO intake and dehydration. pt was non septic appearing on admission and under went extensive w/u to r/o metabolic or infx causes for AMS. Neurology was consulted, Tammy, and it was suspected that pt likely has progressive worsening of Alzheimer vs frontotemporal dementia with poor cardiac status likely contributory as well. per neuro, no focality to suggest new cerebral ischemic event, no evidence of seizures, meningitis, etc inpatient w/u: -CT head w/o acute changes -MRI is not an option since has a PPM/defibrilator -Vit B12, Folic acid elevated -ucx, RPR neg -intermittent elevated ammonia unlikely to be contributing to AMS, no need for lactulose, GI recs appreciated while here psych was consulted as well and pt was started on zyprexa 2.5mg which helped w/ sleep and agitation/dementia. will cont at dc Eventually pt mental status improved w/ encouragement of increased PO intake. 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 during this time heme/onc consulted (Candelario) and heparin and ASA were held and anemia/hemolysis w/u initiated inpatient w/u: -low corrected retic index indicating inadequate marrow response -CT A/P reviewed above, No acute pathology within the abdomen or pelvis -LDH, haptoglobin nl -FOBT neg -P and C ANCA, HERB neg -No evidence of Lupus anticoagulant -Mixing study: PT is elevated and PTT is nl, also Factor VII percentage is low. is this an autoimmune process causing deficiency??? 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 Echymosis and thrombocytopenia have now resolved while off heparin and while on eliquis. ASA resumed. H/H remains stable at baseline. no obvious source of bleed. feet are still swollen and toes of L foot are discolored/cold. DP pulses however are palpable and heard on doppler. vascular consulted, Manolo and no intervention at this time inpatient w/u for LE: b/l foot XR to r/o frx reviewed above duplex neg DVT arterial reviewd above, Decreased monophasic flow within left posterior tibial artery. c/w Lipitor 40 HS Echo does not show thrombi etiology remains unclear. Possibly 2/2 liver disease/injury and c/b vit K depletion 2/2 poor po intake/malabsorbtion. Also noted w/ low fibrinogen, which may be component of mild chronic DIC?, however now fibrinogen nl. 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 elevated BUN may be contributing but unclear at this time as levels of 100 may cause platelet dsfx but unclear if this is what is causing his bruising, nephro and heme recs appreciated. Other problems noted during hospital course: #ELLIOTT on CKD stage 4 2/2 volume depletion, baseline Cr is 1.8-2 - 3...2.6...2.4...2.2...2.4...2.5, poor po intake and was not receiving clinimix or IVF due to pulling his IVs - improving w/ encouragement of PO intake -nephro consulted, Sushil PETE MM immuno w/u neg -hold ACEi for now, and cont to hold at dc -s/p PO bicarbonate for noted metabolic acidosis, now resolved will not cont on dc -metastatic series reviewed above, neg -Renal U/S reviewed above, showed no thrombosis #CHF with Severe LV dysfunction: may be contributing to leg swelling and poor toe perfusion, lasix 20 at dc per nephro, Echo w/ EF <15% -EKG was essentially unchanged since prior -cardio consulted, Evy for optimization of HF meds, pt noted here w/ slightly low BP -carvedilol decreased bid to qd per cardio, for low BP. will cont coreg at qd dosing at dc -ASA resumed for protection from atherosclerotic embolic events given that petechia, echymosis, and thrombocytopenia are resolving #Acute Transaminitis w/ elevated INR 1.79: likely 2/2 hepatic congestion 2/2 CHF w/ severe low EF, however component of ischemic injury may be present in setting of hypotension in the setting of volume depletion. The patient is not on any significant hepatotoxic medications. GI consulted, Dr. Camacho, and don' t think that he has hepatic encephalopathy or cirhosis given the lack of splenomegaly and normal liver size. - LFTs downtrending/improving w/ CHF management -hepatitis panel unremarkable -Ultrasound of the RUQ: fatty liver vs hepatocellular disease -c/w lipitor at higher dose of 40 given embolic events and decreased vascular flow as mentioned above -Repeat colonoscopy in 2021 oupt #Hx of gout with elevated Uric acid - no signs of gout c/w home febuxostat #elevated TSH, and FT4, -as per final inspector paper most likely sick euthyroid. -will follow with Dr. Castaneda as an outpatient, for further w/u pt stable and ready for dc w/ appropriate f/u Minutes to complete discharge: 38 Discharge Summary Reason For Visit: WEAKNESS,ACUTE ON CHRONIC RENAL INSUFFICIENCY, Current Active Problems ELLIOTT (acute kidney injury) (Acute) Abnormal liver function tests (Acute) Coagulation disorder (Acute) Elevated INR (Acute) Embolic disease of toe (Acute) Foot swelling (Acute) Hx of congestive cardiomyopathy (Acute) Hypotension (Acute) Petechial rash (Acute) Weakness (Acute) AICD (automatic cardioverter/defibrillator) present (Chronic) CKD (chronic kidney disease) (Chronic) Condition: Stable - Instructions Diet, Activity, Other Instructions: you came in due to a worsening of your dementia and dehydration. you were also noted to have some clotting issues with your blood. please resume your home meds. please do not take enalapril and follow up with your primary care physician or chief librarian circulation department Dr Ling within 1 week to adjust this medication and restart your meds as tolerated Please take lasix 20mg a day to help with your heart failure Please take eliquis 5mg once a day to prevent and treat blood clots in your legs please take zyprexa 2.5mg at bedtime for your dementia we increased your lipitor to 40mg at bedtime we decreased you coreg 3.125mg from twice a day to once day because your pressure was low. continue aspirin Please follow up with your primary care physician within 1 week Please follow up with chainstitch tunnel elastic operator Dr Palomino within 1 week for close monitoring while on eliquis and to discuss your lab results regarding your clotting ability as you may have some clotting protein deficiency causing you bruise easily in some areas while causing you to clot inappropriately in other areas if your body Please follow up with your dye maker or with dye maker Dr Ratliff within 1 week for close monitoring of your heart given your extensive cardiac history and bad CHF Please follow up with chief librarian circulation department Dr Ling within 1 week, to adjust your lasix medication You are due for a repeat colonoscopy in 2021 as an out patient, Please follow up with International Trade Compliance Manager Dr Camacho within 1 week.Also to evaluate for liver disease we noticed your thyroid levels were a little high. Please follow up with final inspector paper Dr. Purdy within 1 week to review your labs and see if you need to add any medications for your thyroid. Please follow up with machine cloth examiner Dr Garcia within 1 week for pulmonary function tests to see if you have any COPD or asthma that could be contributing to your shortness of breath, need to have pulmonary function test as an outpatient. Please follow up with neurologist Dr Munoz within 1 week for managing your dementia Please follow up with psychiatrist Dr Tan within 1 week. If yo have any chest pain, or worsening shortness of breath please call 911 or go to the ER Need blood work ( CBC, BMP, LFTS, INR, ) in 1 week. diabetic diet with lo salt and low potassium Referrals: Bhavik Garcia MD [Staff Physician] - 1 Week Giovany Tan MD [Staff Physician] - 1 Week Ronni Munoz DO [Staff Physician] - 1 Week Gila Camacho MD [Staff Physician] - 1 Week Eliezer Ratliff MD [Staff Physician] - 1 Week Charles Palomino MD [Staff Physician] - 1 Week Mikhail Ling MD [Staff Physician] - 1 Week Jessica Purdy MD [Staff Physician] - 1 Week Disposition: [facility] - Home Medications Comprehensive Discharge Medication List: Ambulatory Orders Aspirin [ASA -] 81 mg PO DAILY 01/02/17 Cholecalciferol (Vitamin D3) [Vitamin D -] 5,000 unit PO WEEKLY 01/02/17 Febuxostat [Uloric] 40 mg PO DAILY 01/02/17 Gabapentin 300 mg PO DAILY 01/02/17 Glimepiride [Amaryl] 2 mg PO DAILY 01/02/17 Budesonide/Formeterol Fumarate [SYMBICORT 160/4.5mcg -] 2 puff IH BID #1 inhaler 06/21/18 Apixaban [Eliquis -] 5 mg PO Q24H tablet 07/27/18 Atorvastatin Ca [Lipitor] 40 mg PO HS tablet 07/27/18 Carvedilol [Coreg -] 3.125 mg PO DAILY tablet 07/27/18 Furosemide [Lasix -] 20 mg PO DAILY tablet 07/27/18 Olanzapine [Zyprexa -] 2.5 mg PO HS tablet 07/27/18 This patient is new to me today: Yes Date on this admission: 07/27/18 Emergency Visit: Yes ED Registration Date: 07/01/18 Care time: The patient presented to the Emergency Department on the above date and was hospitalized for further evaluation of their emergent condition. Critical Care patient: No - Discharge Referral Referred to [facility] Med [facility] No
--- NOTE | 2018-07-27 15:34 | PN ---
Teaching Attending Note Name of Resident: Elmo Wheeler ATTENDING PHYSICIAN STATEMENT I saw and evaluated the patient. I reviewed the resident's note and discussed the case with the resident. I agree with the resident's findings and plan as documented. SUBJECTIVE: No fever or chills. No pain . OBJECTIVE: NAD, awake, alert, cooperative , knows location and age . CV: RRR, no MRG Lungs: decreased breath sounds at bases. Abd: soft, ND, NT, fading bruises in periubilical area. Nl BS Ext: pitting edema on both feet and legs .L leg and thigh edema > R . 2+ . L foot toes have purple discoloration ( 1,2,3, and 5th toes, and plantar 4th toe ) . Dp 1+ b/l. warm feet. A/P: 77 y/o man with h/o HTN, HLP, systolic CHF, COPD, CKD, CAD s/p stenting, [place], ICD , gout, DM, and other medical problems who presented with general weakness. 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
--- NOTE | 2018-07-27 16:37 | PN ---
Progress Note (short form) - Note Progress Note: Patient seen and examined Lying naked but for diaper in bed Dusky toes left lower extremity HEENT: SHEREE, EOM Intact Oropharynx: No thrush, No mucositis Cor: RSR, No murmurs, No gallops Lungs: poor inspiratory effort Abd: Soft, Normal bowel sounds, No organomegaly Ext LE edema CBC, BMP 07/27/18 06:10 07/27/18 06:40 Current Medications Generic Name Dose Route Start Last Admin Trade Name Freq PRN Reason Stop Dose Admin Acetaminophen 650 mg 07/14/18 16:18 07/14/18 17:24 Tylenol - PO 650 mg Q4H PRN Administration PAIN LEVEL 6-10 Apixaban 5 mg 07/25/18 17:30 07/26/18 16:37 Eliquis - PO 5 mg Q24H CLIVE Administration Aspirin 81 mg 07/27/18 10:00 07/27/18 09:38 Asa - PO 81 mg DAILY CLIVE Administration Atorvastatin Calcium 40 mg 07/15/18 22:00 07/26/18 22:50 Lipitor - PO 40 mg HS CLIVE Administration Budesonide/Formoterol Fumarate 2 puff 07/01/18 10:00 07/27/18 09:38 Symbicort 160/4.5mcg - IH 2 puff BID CLIVE Administration Carvedilol 3.125 mg 07/27/18 10:00 07/27/18 09:38 Coreg - PO 3.125 mg DAILY CLIVE Administration Cholecalciferol 5,000 unit 07/07/18 16:30 07/27/18 09:38 Vitamin D3 - PO 5,000 unit DAILY CLIVE Administration Docusate Sodium 100 mg 07/27/18 14:00 07/27/18 15:09 Colace - PO 100 mg TID CLIVE Administration Febuxostat 40 mg 07/01/18 12:00 07/27/18 09:37 Uloric - PO 40 mg DAILY CLIVE Administration Furosemide 20 mg 07/25/18 14:15 07/27/18 09:38 Lasix - PO 20 mg DAILY CLIVE Administration Insulin Aspart 1 vial 07/01/18 07:00 07/27/18 11:45 Novolog Vial Sliding Scale - SQ 2 units ACHS CLIVE Administration Protocol Olanzapine 2.5 mg 07/09/18 22:00 07/26/18 22:50 Zyprexa - PO 2.5 mg HS CLIVE Administration Polyethylene Glycol 17 gm 07/28/18 10:00 Miralax (For Daily Use) - PO DAILY CLIVE Senna 2 tab 07/27/18 22:00 Senna - PO HS CLIVE Sodium Bicarbonate 650 mg 07/03/18 10:00 07/27/18 09:38 Sodium Bicarbonate - PO 650 mg BID CLIVE Administration Last Vital Signs Temp Pulse Resp BP Pulse Ox 98.3 F 76 18 96/67 100 07/27/18 10:00 07/27/18 10:00 07/27/18 10:00 07/27/18 10:00 07/27/18 09:00 Impression: Ischemia lower extremities -left toes Coagulopathy ? DIC COPD CAD HPL Plan: Divina as out patient LAC. anticardiolipin beta 2 glycoprotein as outpatient.
--- NOTE | 2018-07-27 18:04 | PN ---
Progress Note (short form) - Note Progress Note: Renal follow up for ELLIOTT Pt seen and examined at the bedside awake and alert answering all questions, still confused making urine has cough but denies sob Vital Signs Temperature 98.3 F 07/27/18 10:00 Pulse Rate 76 07/27/18 10:00 Respiratory Rate 18 07/27/18 10:00 Blood Pressure 96/67 07/27/18 10:00 O2 Sat by Pulse Oximetry (%) 100 07/27/18 09:00 Intake & Output 07/24/18 07/25/18 07/26/18 07/27/18 23:59 23:59 23:59 23:59 Intake Total 658 580 700 Output Total 800 300 Balance -142 580 400 Weight 92.034 kg 94.347 kg 93.468 kg 92.85 kg Dec BS soft NT/ND + LE edema no bladder distension CBC, BMP 07/27/18 06:10 07/27/18 06:40 77 year old gentleman with hx of CKD stage 3 (baseline Cr 1.8-2), CAD s/p PCI, CHF with very low LVEF, hyperlipidemia, hypertension, AICD placement, DM, COPD who presented from Dr. Connolly's office with hypotension and found to have increasing confusion and ELLIOTT. #ELLIOTT on CKD due to volume depletion vs. HRS vs. Cardio-renal syndrome vs. renal injury in setting of DIC #Hypotension #Altered mental status r/o dementia vs. other cause #DM #Hypertension #CHF #metabolic acidosis with respiratory compensation Cr with moderate improvement this admission from peak of 3 BUN remains elevated but likely multifactoral from poor oral intake causing volume depletion and renal injury will need to have repeat labs in 5-7 days as an outpatient titrate diuretics based on leg edema Trend H/H maintain on eliquis as per Heme Dementia management as per neurology Mikhail Lopez DO
[2018-07-27] MEDS ORDERED: SENNOSIDES 8.6MG TABLET (FP) PO SCH (22:00)
[2018-07-28] MEDS ORDERED: POLYETHYLENE GLYCOL 3350 119 GM BTL PO SCH (10:00)
[2018-07-29 07:12] LABS: DRVVT - >180.0 sec (0.0-47.0); HEXAGONAL PHASE PHOSPHOLIPID 8 sec (0-11); dRVVT MIX 107.9 sec (0.0-47.0)
== END 2018-07-27 16:41 | DRG 682 ==
LOC: JER 20:19 → JERBED 07-01 01:09 → OBSVTOIN 07-01 02:17 → J8W 07-01 06:31
PROVIDERS: ADMIT Internal Medicine; ATTEND Internal Medicine
PROC: 05HM33Z Insertion of Infusion Device into Right Internal Jugular Vein, Percutaneous Approach (ICD-10-PCS; 2018-07-17)
PROC: 05HN33Z Insertion of Infusion Device into Left Internal Jugular Vein, Percutaneous Approach (ICD-10-PCS; principal; 2018-07-20)
DX: N17.9 Acute kidney failure, unspecified (principal); D66 Hereditary factor VIII deficiency; G93.41 Metabolic encephalopathy; D65 Disseminated intravascular coagulation [defibrination syndrome]; E87.2 Acidosis; I13.0 Hypertensive heart and chronic kidney disease with heart failure and stage 1 through stage 4 chronic kidney disease, or unspecified chronic kidney disease; I50.20 Unspecified systolic (congestive) heart failure; N18.4 Chronic kidney disease, stage 4 (severe); I95.9 Hypotension, unspecified; J44.9 Chronic obstructive pulmonary disease, unspecified; D69.1 Qualitative platelet defects; D75.82 Heparin induced thrombocytopenia (HIT); I25.10 Atherosclerotic heart disease of native coronary artery without angina pectoris; Z98.61 Coronary angioplasty status; E78.5 Hyperlipidemia, unspecified; E11.9 Type 2 diabetes mellitus without complications; D64.9 Anemia, unspecified; R74.0 Nonspecific elevation of levels of transaminase and lactic acid dehydrogenase [LDH]; R41.82 Altered mental status, unspecified; E87.5 Hyperkalemia
CPT/HCPCS: 36415; 36598; 36600; 70450-TC; 71045-TC-FY; 73610-TC-LT-FY; 73610-TC-RT-FY; 73630-TC-LT; 73630-TC-RT-FY; 74018-TC-FY; 74176-TC; 76000-TC-FY; 76705-TC; 76775-TC; 77074-TC-FY; 80048; 80053; 80074; 81003; 81241; 82140; 82172; 82247; 82248; 82272; 82465; 82542; 82550; 82553; 82565; 82595; 82607; 82746; 82784; 82803; 82947; 82962; 82977; 83010; 83520; 83615; 83735; 83880; 83883; 84100; 84155; 84156; 84165; 84300; 84439; 84443; 84450; 84460; 84478; 84481; 84484; 84540; 84550; 85025; 85027; 85044; 85230; 85384; 85610; 85613; 85651; 85730; 85732; 86022; 86038; 86140; 86256; 86317; 86334; 86593; 86850; 86900; 86901; 87086; 93005; 93010; 93306-TC; 93926-TC; 93970-TC; 93975; 97116-GP; 99283-25; C1769; G0378; J0883; J1644; J7030

== ENCOUNTER 2018-07-30 04:26 | Inpatient (IN) | payer OTHER ==
--- NOTE | 2018-07-30 04:59 | PDOC ---
History of Present Illness - General Stated Complaint: RECTAL BLEEDING Time Seen by Provider: 07/30/18 04:55 - History of Present Illness Initial Comments: The pt is a 77M w/ a history of HF (EF <15%) s/p pacemaker, CKD, IL, dementia, HLD, on eliquis who was recently discharged and presents from [facility] for concern of GI bleed. Pt unable to give a history at this time. Per NE report pt was noted to be hypotensive to 72/46 and to have a GI bleed. At baseline the pt is reported to be oriented x2. No family at bedside at this time. 07/30/18 05:32 Past History - Past Medical History Allergies/Adverse Reactions: Allergies Allergy/AdvReac Type Severity Reaction Status Date / Time No Known Drug Allergies Allergy Verified 07/30/18 04:28 heparin AdvReac Severe bleeding Verified 07/30/18 04:28 Home Medications: Ambulatory Orders Aspirin [ASA -] 81 mg PO DAILY 01/02/17 Cholecalciferol (Vitamin D3) [Vitamin D -] 5,000 unit PO WEEKLY 01/02/17 Febuxostat [Uloric] 40 mg PO DAILY 01/02/17 Gabapentin 300 mg PO DAILY 01/02/17 Glimepiride [Amaryl] 2 mg PO DAILY 01/02/17 Budesonide/Formeterol Fumarate [SYMBICORT 160/4.5mcg -] 2 puff IH BID #1 inhaler 06/21/18 Atorvastatin Ca [Lipitor] 40 mg PO HS tablet 07/27/18 Carvedilol [Coreg -] 3.125 mg PO DAILY tablet 07/27/18 Furosemide [Lasix -] 20 mg PO DAILY tablet 07/27/18 Olanzapine [Zyprexa -] 2.5 mg PO HS tablet 07/27/18 Apixaban [Eliquis -] 2.5 mg PO Q24H 07/30/18 Anemia: Yes Asthma: No Cancer: No Cardiac Disorders: Yes (CAD s/p STENTS(04), IL, CARDIOMYOPATHY, PPM/AICD) CVA: No COPD: Yes CHF: No Dementia: No Diabetes: Yes (IDDM) GI Disorders: No Disorders: Yes (URINARY FREQUENCY) HTN: Yes Hypercholesterolemia: Yes Liver Disease: No Seizures: No Thyroid Disease: Yes (NODULE) - Surgical History Abdominal Surgery: No Appendectomy: No Cardiac Surgery: (cardiac stent, PPM/AICD) Cholecystectomy: Yes (LAPAROSCOPIC) Lung Surgery: No Neurologic Surgery: No Orthopedic Surgery: No - Immunization History Immunization Up to Date: Yes - Suicide/Smoking/Psychosocial Hx Smoking Status: Yes Smoking History: Former smoker Have you smoked in the past 12 months: No Number of Cigarettes Smoked Daily: 10 If you are a former smoker, when did you quit?: many years ago 'Breaking Loose' booklet given: 02/19/16 Hx Alcohol Use: Yes (quit several years ago) Drug/Substance Use Hx: No Substance Use Type: None Hx Substance Use Treatment: No Review of Systems - Review of Systems Able to Perform ROS?: No (2/2 medical condition) *Physical Exam - Vital Signs Vital Signs Temp Pulse Resp BP Pulse Ox 93.7 F L 72 20 72/52 L 98 07/30/18 05:36 07/30/18 05:36 07/30/18 05:36 07/30/18 05:36 07/30/18 05:36 07/30/18 05:59 - Physical Exam Comments: GENERAL: Somnolent,oriented to person/place, arousable to touch/pain HEAD: No signs of trauma, normocephalic, atraumatic EYES: PERRLA, EOMI, sclera anicteric, conjunctiva clear ENT: nares patent, oropharynx clear without exudates. Dry mucosa LUNGS: Diffuse rhonchi/rhales, decrease breath sounds at the L base HEART: Regular rate and rhythm, normal S1 and S2, no murmurs appreciated ABDOMEN: Soft, some grimace to epigastric palpation, normoactive bowel sounds RECTAL: Copious stool, BRBPR, no melena EXTREMITIES: BLE edema to knee; extremities cool to touch NEUROLOGICAL: Somnolent, withdraws extremities to pain, will mumble 1 word answers, will not follow commands SKIN: pale, cool, diaphoretic 07/30/18 05:59 ED Treatment Course - LABORATORY CBC & Chemistry Diagram: 07/30/18 05:05 07/30/18 05:05 Medical Decision Making - Medical Decision Making The pt is a 77M w/ a history of CHF, CKD, HLD, CAD s/p stent, IL s/p AICD, COPD who presents from [facility] for evaluation of hypotension and concern for GIB. ED Course Sepsis labs sent TSH, Mg, Phos, Ammonia Cultures sent Will give 2L LR FOBT sent Hypothermia -Theresa hugger applied Hgb 9.8, near baseline No leukocytosis Trop I neg Lactate wnl 07/30/18 06:03 Hyperkalemia to 6 w/ ECG QRS prolongation and QTc prolongation compared to previous -Will give insulin, dextrose, albuterol -Will hold lasix until BP improved -Calcium gluconate 1gm IV once 07/30/18 06:22 FOBT neg ELLIOTT in setting of CKD Worsening Uremia 07/30/18 06:24 MAP improved from 55 to 59 s/p 1.5L LR ICU consulted, will evaluate Will consult Nephrology (Dr. Ling) for possible emergent dialysis 07/30/18 06:48 Pt discussed w/ Dr. Ling, will repeat labs, recommends giving kayexalate when pt tolerates PO, and he will evaluate the pt Case discussed with ICU team who will evaluate the pt Pt discussed with [facility] Admitting who will evaluate the pt Pt signed out to Dr. Tubbs *DC/Admit/Observation/Transfer Diagnosis at time of Disposition: ELLIOTT (acute kidney injury) Hypotension Qualifiers: Hypotension type: unspecified hypotension type Qualified Code(s): I95.9 - Hypotension, unspecified Systolic CHF Qualifiers: Heart failure chronicity: unspecified Qualified Code(s): I50.20 - Unspecified systolic (congestive) heart failure Altered mental status Qualifiers: Altered mental status type: unspecified Qualified Code(s): R41.82 - Altered mental status, unspecified - Discharge Dispostion Condition at time of disposition: Critical Decision to Admit order: Yes - Referrals Referrals: Myles Dailey MD [Primary Care Provider] - - Patient Instructions - Post Discharge Activity
[2018-07-30] MEDS ORDERED: LACTATED RINGERS SOLUTION 1000 ML INFUS.BAG IV ONE ×2 (05:03→05:32)
[2018-07-30 05:27] LABS: INR 1.84 (0.83-1.09); PROTHROMBIN TIME (PATIENT) 21.9 SEC (9.7-13.0)
[2018-07-30 05:28] LABS: VENOUS PC02 39.9 mmHg (41-51); VENOUS PH 7.34 (7.31-7.41); VENOUS PO2 34.2 mmHg (30-40)
[2018-07-30 05:30] LABS: ACTIVATED PTT 38.6 SECONDS (25.2-36.5)
--- NOTE | 2018-07-30 05:30 | PDOC ---
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 Pt here is lethargic appearing, pale, hypotensive. Pts requires repeated prompting to answer questions, but barely mumbles his answers. GENERAL: The patient is lethargic appearing, alert and oriented to 2 (requires repeated prompting and mumbles his answers) HEAD: Normocephalic, atraumatic. EYES: extraocular movements intact, sclera anicteric, conjunctiva pale ENT: Normal voice, dry mucous membranes. NECK: Normal range of motion, supple LUNGS: rales b/l w deminished breath sounds in L base HEART: Regular rate and rhythm, normal S1 and S2 without murmur, rub or gallop. ABDOMEN: Soft, nontender, No guarding, no rebound. EXTREMITIES: Normal range of motion, anasarcic NEUROLOGICAL: No facial assymetry, moving all 4 ext spontaneously PSYCH: Normal mood, normal affect. SKIN: Warm, Dry, normal turgor, cool to touch RECTAL: pale stool mixed with blood ddx wide andincludes - GIB, myxedema coma, pna, sepsis, dehydration, uremic encephalopathy sepsis orderset obtained upon arrival 2 large bore IVs placed pt placed on patient monitor will fluid hydrate to see if his hypotension is fluid responsive hbg returned at 9.8, roughly stable from 9.6 at discharge stool guaiac returned negative pt hypothermic - will place on bear hugger 07/30/18 06:16 pts K at 6.0 - will treat with hyperK cocktail EKG shows slightly widened intervals - will tx w calcium gluconate 07/30/18 06:42 07/30/18 06:48 pts BP slowly trending higher - bp currently 88/55 (map 61) will continue to fluid resusitate, if BP not improving will consider central line/pressors - will admit to ICU will dw Renal regarding consideration for dialysis (with severe uremia, hyperK, acute on chronic RF) - Physicial Exam PE: 07/30/18 06:41 see above - Critical Care Time Total Critical Care Time: 95 Critical Care Statement: The care of this patient involved high complexity decision making to prevent further life threatening deterioration of the patient 's condition and/or to evaluate & treat vital organ system(s) failure or risk of failure. - Medical Decision Making 07/30/18 06:41 see above Heart Score/ECG Review - ECG Impressions Comment:: 07/30/18 07:21 Twelve-lead EKG was performed and reviewed by me. paced rhythm qrs 192 QTc 594 rate of 70
[2018-07-30 05:31] LABS: BASO % 0.1 % (0-2.0); EOS % 0.4 % (0-4.5); HEMATOCRIT 30.7 % (35.4-49); HEMOGLOBIN 9.8 GM/dL (11.7-16.9); LYMPH % 12.3 % (8-40); MCH 29.2 pg (25.7-33.7); MCHC 31.9 g/dl (32.0-35.9); MEAN CELL VOLUME 91.6 fl (80-96); MEAN PLT VOLUME 8.4 fl (7.5-11.1); MONO % 5.6 % (3.8-10.2); NEUT % 81.6 % (42.8-82.8); RBC 3.36 M/mm3 (4.00-5.60); WHITE BLOOD COUNT 4.8 K/mm3 (4.0-10.0)
[2018-07-30 05:41] VITALS: BMI 29.2
[2018-07-30 05:54] LABS: ALBUMIN 2.1 g/dl (3.4-5.0); BILIRUBIN,TOTAL 2.6 mg/dL (0.2-1); CALCIUM 7.7 mg/dL (8.5-10.1); CREATININE 3.2 mg/dL (0.55-1.3); TOT PROT 5.8 g/dl (6.4-8.2)
[2018-07-30] MEDS ORDERED: CALCIUM GLUCONATE 10% - 1,000 MG/10 ML VIAL IVPUSH ONE (06:16)
[2018-07-30] MEDS ORDERED: DEXTROSE 50%-WATER - 25 GM/50 ML VIAL IVPUSH ONE (06:19)
[2018-07-30] MEDS ORDERED: INSULIN REGULAR HUMAN 100 UNITS/ML *VIAL IVPUSH ONE (06:19)
[2018-07-30] MEDS ORDERED: FUROSEMIDE 40 MG/4 ML INJECTABLE VIAL IVPUSH ONE (06:23)
[2018-07-30] MEDS ORDERED: ALBUTEROL SO4 2.5/IPRATROPIUM 0.5 INH SOL 3 ML VIAL.NEB. NEB ONE ×2 (06:24→06:50)
[2018-07-30] MEDS ORDERED: DEXTROSE 50%-WATER - 25 GM/50 ML VIAL ONE (06:25)
[2018-07-30] MEDS ORDERED: INSULIN (NOVOLOG) ASPART 100 UNITS/ML 10ML VIAL ONE (06:25)
[2018-07-30] MEDS ORDERED: CALCIUM GLUCONATE 10% - 1,000 MG/10 ML VIAL ONE ×2 (06:25→06:26)
[2018-07-30 06:34] LABS: BLOOD UREA NITROGEN 135.7 mg/dL (7-18)
[2018-07-30] MEDS: ALBUTEROL SO4 2.5/IPRATROPIUM 0.5 INH SOL 3 ML VIAL.NEB. NEB SCH ×3 (06:34→07:01)
[2018-07-30] MEDS ORDERED: FUROSEMIDE 40 MG/4 ML INJECTABLE VIAL ONE (06:37)
[2018-07-30 06:49] LABS: PHOSPHOROUS 5.7 mg/dL (2.5-4.9)
[2018-07-30 06:53] LABS: PLATELET COUNT 215 K/MM3 (134-434)
[2018-07-30] MEDS ORDERED: GLUCAGON 1 MG KIT IVPUSH ONE (07:11)
[2018-07-30 07:12] LABS: EPI CELLS 1.1 /HPF (0-5/HPF); HYALINE CASTS 7 /lpf (0-8); URINE APPEARANCE CLOUDY; URINE BILIRUBIN 1+ (NEGATIVE); URINE COLOR DK YELLOW; URINE GLUCOSE (UA) NEGATIVE (NEGATIVE); URINE KETONE NEGATIVE (NEGATIVE); URINE LEUK ESTERASE 1+ (NEGATIVE); URINE NITRITE POSITIVE (NEGATIVE); URINE PROTEIN NEGATIVE (NEGATIVE); URINE WBC 1 /hpf (0-5)
[2018-07-30] MEDS ORDERED: GlUCAGON HUMAN RECOMBINANT 1 MG/VIAL ONE (07:40)
[2018-07-30 07:49] LABS: URINE RBC 23.4 /hpf (0-4)
--- NOTE | 2018-07-30 08:19 | CONSULT ---
Consultation: REQUESTING PROVIDER: Dr. Tubbs CONSULT REQUEST: We have been asked to medically evaluate this patient for Hypotension, uremia, encephalopathy HISTORY OF PRESENT ILLNESS: 77 year old male with a past medical history of hypertension, hyperlipidemia, LV dysfunction (EF 15%) CHF, chronic kidney disease stage 4, CAD s/p stents, VT s/p defibrillator placement, gout, diabetes, COPD was brought to the hospital from [facility] for noted hypotension and pink blood in stool. Patient himself is lethargic and only mildly arousable and is unable to answer any of my questions. 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 In the ED, Patient was noted to be hypotensive (70s/50s) , hyperkalemic to 6, and severe azotemia with BUN 135. Patient was given 2 L of fluids and BP improved slightly to 83/55. Patient was recently discharged a few days ago from a prolonged and complicated hospital stay here for delerium and acute on chronic kidney injury. The hospital course was complicated by diffuse petechiae, ecchymosis on the abdomen , thrombocytopenia and elevated INR. Workup for HIT, hemolysis, and rheumatologic diseases was started. Full summary of the hospital course and labs ordered is well documented in the discharge summary of Dr. Wheeler on 07/27. REVIEW OF SYSTEMS: unable to assess due to mental status. PHYSICAL EXAMINATION Vital Signs - 24 hr 07/30/18 07/30/18 07/30/18 05:36 05:42 06:23 Temperature 93.7 F L Pulse Rate 72 70 Pulse Rate [ Apical] Respiratory 20 16 Rate Blood Pressure 72/52 L Blood Pressure 78/52 L [Right Arm] O2 Sat by Pulse 98 Oximetry (%) 07/30/18 07/30/18 06:53 07:15 Temperature Pulse Rate 70 Pulse Rate [ 70 Apical] Respiratory 16 Rate Blood Pressure Blood Pressure 83/55 L [Right Arm] O2 Sat by Pulse 98 Oximetry (%) GENERAL: A&Ox0, lethargic EYES: PERRLA ENT: Dry mucus membranes LUNGS: diffuse bilateral crackles, coarse breath sounds, no wheezes HEART: RRR, no murmurs ABDOMEN: Soft, nontender, BS present MUSCULOSKELETAL: No CVA Tenderness EXTREMITIES: 2+ pulses, no edema. NEUROLOGICAL: Unable to assess CN due to mental status, pupils reactive, brainstem reflexes intact RECTAL: normal rectal tone, no hemorrhoids noted, stool beige without any signs of blood : scrotum and penis normal on initial exam, on repeat exam 2 hours later both scrotum and penis were moderately edematous Laboratory Results - last 24 hr 07/30/18 07/30/18 07/30/18 05:05 05:05 05:05 WBC 4.8 RBC 3.36 L Hgb 9.8 L Hct 30.7 L MCV 91.6 MCH 29.2 MCHC 31.9 L RDW 18.0 H Plt Count 215 D MPV 8.4 Absolute Neuts (auto) 3.9 Neutrophils % 81.6 Lymphocytes % 12.3 Monocytes % 5.6 Eosinophils % 0.4 Basophils % 0.1 Nucleated RBC % 0 PT with INR 21.90 H INR 1.84 H PTT (Actin FS) 38.6 H VBG pH POC VBG pCO2 POC VBG pO2 VBG HCO3 VBG O2 Sat (Monalisa) VBG Base Excess Sodium 133 L Potassium 6.0 H Chloride 101 Carbon Dioxide 22 Anion Gap 10 BUN 135.7 H* Creatinine 3.2 H Est GFR (CKD-EPI)AfAm 20.67 Est GFR (CKD-EPI)NonAf 17.84 Random Glucose 124 H Lactic Acid Calcium 7.7 L Phosphorus Magnesium Total Bilirubin 2.6 H AST 35 ALT 35 Alkaline Phosphatase 118 H Troponin I B-Natriuretic Peptide Total Protein 5.8 L Albumin 2.1 L TSH Urine Color Urine Appearance Urine pH Ur Specific [place] Urine Protein Urine Glucose (UA) Urine Ketones Urine Blood Urine Nitrite Urine Bilirubin Urine Urobilinogen Ur Leukocyte Esterase Urine WBC (Auto) Urine RBC (Auto) Urine Casts (Auto) U Epithel Cells (Auto) Urine Bacteria (Auto) Stool Occult Blood Blood Type Antibody Screen 07/30/18 07/30/18 07/30/18 05:05 05:05 05:05 WBC RBC Hgb Hct MCV MCH MCHC RDW Plt Count MPV Absolute Neuts (auto) Neutrophils % Lymphocytes % Monocytes % Eosinophils % Basophils % Nucleated RBC % PT with INR INR PTT (Actin FS) VBG pH POC VBG pCO2 POC VBG pO2 VBG HCO3 VBG O2 Sat (Monalisa) VBG Base Excess Sodium Potassium Chloride Carbon Dioxide Anion Gap BUN Creatinine Est GFR (CKD-EPI)AfAm Est GFR (CKD-EPI)NonAf Random Glucose Lactic Acid 1.7 Calcium Phosphorus 5.7 H Magnesium 3.0 H Total Bilirubin AST ALT Alkaline Phosphatase Troponin I 0.03 B-Natriuretic Peptide > 12661.0 H Total Protein Albumin TSH 9.42 H D Urine Color Urine Appearance Urine pH Ur Specific [place] Urine Protein Urine Glucose (UA) Urine Ketones Urine Blood Urine Nitrite Urine Bilirubin Urine Urobilinogen Ur Leukocyte Esterase Urine WBC (Auto) Urine RBC (Auto) Urine Casts (Auto) U Epithel Cells (Auto) Urine Bacteria (Auto) Stool Occult Blood Blood Type Antibody Screen 07/30/18 07/30/18 07/30/18 05:10 05:10 05:10 WBC RBC Hgb Hct MCV MCH MCHC RDW Plt Count MPV Absolute Neuts (auto) Neutrophils % Lymphocytes % Monocytes % Eosinophils % Basophils % Nucleated RBC % PT with INR INR PTT (Actin FS) VBG pH 7.34 POC VBG pCO2 39.9 L POC VBG pO2 34.2 VBG HCO3 20.7 L VBG O2 Sat (Monalisa) 52.2 L VBG Base Excess -4.2 L Sodium Potassium Chloride Carbon Dioxide Anion Gap BUN Creatinine Est GFR (CKD-EPI)AfAm Est GFR (CKD-EPI)NonAf Random Glucose Lactic Acid Calcium Phosphorus Magnesium Total Bilirubin AST ALT Alkaline Phosphatase Troponin I B-Natriuretic Peptide Total Protein Albumin TSH Urine Color Urine Appearance Urine pH Ur Specific [place] Urine Protein Urine Glucose (UA) Urine Ketones Urine Blood Urine Nitrite Urine Bilirubin Urine Urobilinogen Ur Leukocyte Esterase Urine WBC (Auto) Urine RBC (Auto) Urine Casts (Auto) U Epithel Cells (Auto) Urine Bacteria (Auto) Stool Occult Blood Negative Blood Type A POSITIVE Antibody Screen Negative 07/30/18 07/30/18 05:45 07:59 WBC RBC Hgb Hct MCV MCH MCHC RDW Plt Count MPV Absolute Neuts (auto) Neutrophils % Lymphocytes % Monocytes % Eosinophils % Basophils % Nucleated RBC % PT with INR INR PTT (Actin FS) VBG pH POC VBG pCO2 POC VBG pO2 VBG HCO3 VBG O2 Sat (Monalisa) VBG Base Excess Sodium Potassium Chloride Carbon Dioxide Anion Gap BUN Creatinine Est GFR (CKD-EPI)AfAm Est GFR (CKD-EPI)NonAf Random Glucose Lactic Acid Calcium Phosphorus Magnesium Total Bilirubin AST ALT Alkaline Phosphatase Troponin I B-Natriuretic Peptide Total Protein Albumin TSH Urine Color Dk yellow Urine Appearance Cloudy Urine pH 5.0 Ur Specific [place] 1.017 Urine Protein Negative Urine Glucose (UA) Negative Urine Ketones Negative Urine Blood 1+ H Urine Nitrite Positive H Urine Bilirubin 1+ H Urine Urobilinogen 1.0 Ur Leukocyte Esterase 1+ H Urine WBC (Auto) 1 Urine RBC (Auto) 23.4 Urine Casts (Auto) 7 U Epithel Cells (Auto) 1.1 Urine Bacteria (Auto) 986.0 Stool Occult Blood Positive Blood Type Antibody Screen ASSESSMENT/PLAN: 77 year old male with a past medical history of hypertension, hyperlipidemia, LV dysfunction (EF 15%) CHF, chronic kidney disease stage 4, CAD s/p stents, VT s/p defibrillator placement, gout, diabetes, COPD was brought to the hospital from [facility] for noted hypotension and pink blood in stool. NEUROLOGIC -patient was lethargic and not alert or oriented -questionable etiology: metabolic encephalopathy, uremic encephalopathy, myxedema -head CT negative for acute intracranial pathology -patient received versed for sedation for intubation CARDIOVASCULAR A: CHF with reduced EF, hypotension, volume overload, prothrombotic disorder -patient had a recent echocardiogram showing global hypokinesis and EF 15% -diffuse pitting edema and crackles on lung exam suggestive of volume overload -no indication for new echo at the moment -troponins were normal -not getting diuresed due to acute on chronic kidney failure likely needing dialysis -eliquis was held due to concern for GI bleed with + FOBT -trialysis catheter in place -patient was initially hypotensive to 70s/50s now on dopamine ggt with a MAP of 78 -does not seem to have thrombotic events at the moment -cards consulted PULMONARY A: COPD, lethargy with airway compromise -patient was saturating at 88% on nasal cannula -we intubated the patient for airway stability in the setting of lethargy and fluid overload secondary to decompensated heart failure vs renal failure -sputum cultures from ET tube will be sent -chest xray revealed bilateral pleural effusions with R > L, cardiomegaly with defibrillator in L chest, cannot identify infiltrate through the effusion -symbicort -versed GASTROINTESTINAL A: Gastrointestinal bleed -unlikely patient has overt GI bleed even with + fecal occult blood. 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 Patel -patient started on meropenem RENAL A: Acute on chronic kidney failure -BUN/Cre continues to rise even after previous discharge - 140 BUN today -will need dialysis today -trialysis catheter initially attempted in R IJ, but was unsuccessful due to stenotic vessel and inability to pass catheter through during seldinger technique, later inserted in R femoral vein -monitor BUN/Creatinine -patient's volume overload is likely a component of renal failure and fluid retention, even if patient is making urine -patient's uremia could be causing his encephalopathy -albumin ordered ENDOCRINE A: Hypothyroidism, Questionable Myxedema-like picture, Diabetes Mellitus -patient's TSH was ~ 9 with a free T4 also high around 1.5 -will obtain total T3 -unlikely patient has overt myxedemam, but patient did present hypothermic, hypotensive, and stuporous -Endocrine consultation Dr. Castaneda -bgms and iss as needed for glucose control FEN -no standing fluids -replete lytes as necessary -NPO Dispo: We will continue to follow the patient. Thank you for this consultative opportunity. Critical Care time 100 minutes Case discussed with Dr. Castellon Visit type - Emergency Visit Emergency Visit: Yes ED Registration Date: 07/30/18 Care time: The patient presented to the Emergency Department on the above date and was hospitalized for further evaluation of their emergent condition. - New Patient This patient is new to me today: Yes Date on this admission: 07/30/18 - Critical Care Critical Care patient: Yes Total Critical Care Time (in minutes): 100 Critical Care Statement: The care of this patient involved high complexity decision making to prevent further life threatening deterioration of the patient 's condition and/or to evaluate & treat vital organ system(s) failure or risk of failure.
[2018-07-30] MEDS: INSULIN SLIDING SCALE (NOVOLOG) 1 VIAL SQ SCH ×3 (08:30→21:06)
[2018-07-30] MEDS ORDERED: HYDROCORTISONE SOD SUCCINATE 100 MG/2 ML VIAL IVPUSH ONE (08:41)
--- NOTE | 2018-07-30 08:47 | HP ---
CHIEF COMPLAINT: hypotension, GIB PCP: HISTORY OF PRESENT ILLNESS: 77 y/o M with PMH HTN, HLD, systolic CHF w/ LV dysfunction (EF 15%) s/p PPM/ defibrillator, CKD stage 4, CAD s/p stents, GA s/p defibrillator, gout, DM, COPD (not on 02), who presents to the ED from [facility] with hypotension (70/40) , hypothermia to 94.2F, with GIB when he was changed. As per daughter, pt was more responsive yesterday and was tolerating PO intake when she visited him. When d/w [facility], pt has been confused and has refused care while at the facility. Was complaining of constipation two days ago, was given miralax, milk of magnesia. Upon my exam, pt is lethargic and not responsive to questions. In the ED, pt was found to be hyperkalemic to 6, with elevated phosph 5.7, mg 3, BUN 135, Cr 3.2. Started on 2L LR by ED and given 10u insulin, amp d50, alb neb , and placed on imtiaz hugger. Per daughter, pt has not had any cough or other recent sx that she is aware of. Of note, pt was recently hospitalized at [facility] and d/ on 07/27. During stay, was found to have acute metabolic encephalopathy, worsening dementia. 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 At time, started on eliquis. Was also found to have mild potential DIC by heme/onc, and ELLIOTT on CKD. ER course was notable for: (1) 2L LR (2) imtiaz hugger (3) insulin 10u, d50, neb (4) glucagon was given in case of BB (4) rocephin x 1 Recent Travel: denies PAST MEDICAL HISTORY: as above PAST SURGICAL HISTORY: as above Social History: Smoking: unable to obtain as above d/t mental status Alcohol: Drugs: Family History: fam hx of clotting disorders per daughter Allergies No Known Drug Allergies Allergy (Verified 07/30/18 04:28) heparin Adverse Reaction (Severe, Verified 07/30/18 04:28) bleeding HOME MEDICATIONS: Home Medications Medication Instructions Recorded Aspirin [ASA -] 81 mg PO DAILY 01/02/17 Cholecalciferol (Vitamin D3) 5,000 unit PO WEEKLY 01/02/17 [Vitamin D -] Febuxostat [Uloric] 40 mg PO DAILY 01/02/17 Gabapentin 300 mg PO DAILY 01/02/17 Glimepiride [Amaryl] 2 mg PO DAILY 01/02/17 Budesonide/Formeterol Fumarate 2 puff IH BID #1 inhaler 06/21/18 [SYMBICORT 160/4.5mcg -] Atorvastatin Ca [Lipitor] 40 mg PO HS tablet 07/27/18 Carvedilol [Coreg -] 3.125 mg PO DAILY tablet 07/27/18 Furosemide [Lasix -] 20 mg PO DAILY tablet 07/27/18 Olanzapine [Zyprexa -] 2.5 mg PO HS tablet 07/27/18 Apixaban [Eliquis -] 2.5 mg PO Q24H 07/30/18 REVIEW OF SYSTEMS CONSTITUTIONAL: +hypothermic, hypotensive Absent: fever, chills, diaphoresis, generalized weakness, malaise, loss of appetite, weight change HEENT: Absent: rhinorrhea, nasal congestion, throat pain, throat swelling, difficulty swallowing, mouth swelling, ear pain, eye pain, visual changes CARDIOVASCULAR: Absent: chest pain, syncope, palpitations, irregular heart rate, lightheadedness , peripheral edema RESPIRATORY: Absent: cough, shortness of breath, dyspnea with exertion, orthopnea, wheezing, stridor, hemoptysis GASTROINTESTINAL: Absent: abdominal pain, abdominal distension, nausea, vomiting, diarrhea, constipation, melena, hematochezia GENITOURINARY: Absent: dysuria, frequency, urgency, hesitancy, hematuria, flank pain, genital pain MUSCULOSKELETAL: Absent: myalgia, arthralgia, joint swelling, back pain, neck pain SKIN: Absent: rash, itching, pallor HEMATOLOGIC/IMMUNOLOGIC: Absent: easy bleeding, easy bruising, lymphadenopathy, frequent infections ENDOCRINE: Absent: unexplained weight gain, unexplained weight loss, heat intolerance, cold intolerance NEUROLOGIC: Absent: headache, focal weakness or paresthesias, dizziness, unsteady gait, seizure, mental status changes, bladder or bowel incontinence PSYCHIATRIC: Absent: anxiety, depression, suicidal or homicidal ideation, hallucinations. PHYSICAL EXAMINATION Vital Signs 07/30/18 07/30/18 07/30/18 05:36 05:42 06:23 Temperature 93.7 F L Pulse Rate 72 70 Pulse Rate [ Apical] Respiratory 20 16 Rate Blood Pressure 72/52 L Blood Pressure 78/52 L [Right Arm] O2 Sat by Pulse 98 Oximetry (%) 07/30/18 07/30/18 06:53 07:15 Temperature Pulse Rate 70 Pulse Rate [ 70 Apical] Respiratory 16 Rate Blood Pressure Blood Pressure 83/55 L [Right Arm] O2 Sat by Pulse 98 Oximetry (%) GENERAL: AAOx 1 (place). resting, in NAD HEAD: Normal with no signs of trauma. EYES: +sluggish pupillary rxn to light but reactive EARS, NOSE, THROAT: Ears normal, nares patent, oropharynx clear without exudates. Moist mucous membranes. NECK: Normal range of motion, supple LUNGS: +coarse breath sounds, rhonchi HEART: +paced rhythm, normal S1 and S2 without murmur, rub or gallop. ABDOMEN: Soft, nontender, mildly distended, normoactive bowel sounds RECTAL: without hemorrhoids. no BRBPR noted. LOWER EXTREMITIES: 2+ pt pulses, well-perfused. +blue toenails NEUROLOGICAL: awake, AAOx 1 . otherwise not responsive to commands. Laboratory Results 07/30/18 07/30/18 07/30/18 05:05 05:05 05:05 WBC 4.8 Hgb 9.8 L Hct 30.7 L Sodium 133 L Potassium 6.0 H BUN 135.7 H* Creatinine 3.2 H Random Glucose 124 H Phosphorus 5.7 H Magnesium 3.0 H Total Bilirubin 2.6 H Alkaline Phosphatase 118 H B-Natriuretic Peptide > 43771.0 H TSH 9.42 H D Free T4 Pending 07/30/18 07/30/18 07/30/18 05:10 05:45 07:59 Urine Blood 1+ H Urine Nitrite Positive H Urine Bilirubin 1+ H Urine Bacteria (Auto) 986.0 Stool Occult Blood Negative Positive CXR: +possible blunting costophrenic angles, congestion. await official read Head CT: +encephalomalacia R temporal lobe w/ ex vacuo dilation of R temporal horn relative to L. moderate volume loss. no acute changes. EKG: +biventricular paced. rate 70bpm, qtc 594ms ASSESSMENT/PLAN: 77 y/o M with PMH HTN, HLD, systolic CHF w/ LV dysfunction (EF 15%) s/p PPM/ defibrillator, CKD stage 4, CAD s/p stents, GA s/p defibrillator, gout, DM, COPD (not on 02), who presents to the ED from [facility] with hypotension (70/40) , hypothermia to 94.2F, with GIB when he was changed. Renal/Endocrine #Acute encephalopathy possible 2/2 uremia, ?myxedema -with elevated K, Mg, phosph. will be dialyzed today. for trialysis catheter -K 6>5.3 -nephro: Dr. Ling. -may also have component of hypothyroid myxedema. TSH 9.42, free t4 WNL -will give solucortef 100mg x 1 -endocrine: Dr. Dahl. will see pt today. await further recs -head CT (-) for acute changes #DM -hold oral agents -BGM, ISS ID #septic shock 2/2 infectious etiology -with hypothermia, hypotension, elev lactic. -s/p rocephin 1g IVPB x 1 by ED -etiology may be from urine or aspiration PNA -started on meropenem, vanco -ID: Dr. Patel -f/u ucx, blood cx -iso precautions. hx ESBL -will need pressor support. started on dopamine peripherally. keep MAP>65 GI #R/o acute GIB -with +FOBT, could be rectal source as per [place] report. however d/t w/elevated BUN could be upper source -has hx transverse colon adenoma removal, diverticulosis -hold asa, eliquis -c/w protonix IVP BID -GI: Dr. De La Fuente -Heme: Dr. Palomino. will need recs on DVT PPX as w/hx HIT, though APRIL (-) once bleed resolves Cardio #Systolic CHF w/ LV dysfunction -will hold lasix for now as hypotensive -last ECHO done recently. mod MR, severe global hypokinesis LV, EF<15% -na control #HTN- hypotensive -hold coreg #HLD -hold lipitor. NPO Heme #R/o DVT -f/u LE duplex -no SCD's at this time as with hx emboli lower ext Pulm #COPD (not on home 02) -cont to monitor. current sat 99% RA -c/w symbicort. can add nebs PRN if needed -intubated d/t impending resp failure #code status -full code for now daughter is HCP needs more time to decide whether ok with intubation ok with pressors, line #F/E/N on LR currently from ED. cont to reassess for crackles as w/CHF continue to follow karol joshua K NPO #PPX DVT: no SCD's as w hx emboli LE previously. no hep - hx HIT and as w/GIB hold asa, eliquis for now. GI: on protonix #Dispo admit to ICU Visit type - Emergency Visit Emergency Visit: Yes ED Registration Date: 07/30/18 Care time: The patient presented to the Emergency Department on the above date and was hospitalized for further evaluation of their emergent condition. - New Patient This patient is new to me today: Yes Date on this admission: 07/30/18 - Critical Care Critical Care patient: Yes Total Critical Care Time (in minutes): 45 Critical Care Statement: The care of this patient involved high complexity decision making to prevent further life threatening deterioration of the patient 's condition and/or to evaluate & treat vital organ system(s) failure or risk of failure.
[2018-07-30 08:49] LABS: BASO % 0.1 % (0-2.0); EOS % 0.3 % (0-4.5); HEMATOCRIT 26.8 % (35.4-49); HEMOGLOBIN 8.4 GM/dL (11.7-16.9); LYMPH % 10.8 % (8-40); MCH 28.9 pg (25.7-33.7); MCHC 31.4 g/dl (32.0-35.9); MEAN PLT VOLUME 8.2 fl (7.5-11.1); MONO % 6.2 % (3.8-10.2); NEUT % 82.6 % (42.8-82.8); PLATELET COUNT 172 K/MM3 (134-434); RBC 2.91 M/mm3 (4.00-5.60); RDW 18.3 % (11.9-15.9); WHITE BLOOD COUNT 4.9 K/mm3 (4.0-10.0)
[2018-07-30 09:01] LABS: N-TERMINAL BNP 81739.6 pg/ml (5-450)
[2018-07-30] MEDS ORDERED: CEFTRIAXONE 1 GM in DEXTROSE 5%-WATER - 50 ML IVPB ONE (09:02)
[2018-07-30 09:31] LABS: CALCIUM 7.5 mg/dL (8.5-10.1); CREATININE 3.1 mg/dL (0.55-1.3); POTASSIUM 5.3 mmol/L (3.5-5.1)
[2018-07-30 09:37] LABS: BLOOD UREA NITROGEN 140.3 mg/dL (7-18)
[2018-07-30] MEDS ORDERED: DOPAMINE 400 MG/D5W - 400,000 MCG/250 ML INFUS.BAG IVPB SCH (10:00)
[2018-07-30 10:52] LABS: ARTERIAL BLD GAS O2 SATURATION 99.7 % (95-98); ARTERIAL BLOOD GAS BASE EXCESS -5.1 meq/l (-2-2); ARTERIAL BLOOD GAS PCO2 37.7 mmHg (35-45); ARTERIAL BLOOD GAS PO2 160 mmHg (80-105); ARTERIAL BLOOD GAS pH 7.34 (7.35-7.45)
[2018-07-30 11:06] LABS: ALLENS TEST POSITIVE
[2018-07-30] MEDS ORDERED: PROPOFOL 1,000,000 MCG/100 ML VIAL ONE (11:08)
[2018-07-30] MEDS ORDERED: RAPID SEQUENCE INTUBATION KIT NR ONE (11:08)
--- NOTE | 2018-07-30 11:14 | PN ---
Teaching Attending Note Name of Resident: Viktor Ziegler ATTENDING PHYSICIAN STATEMENT I saw and evaluated the patient. I reviewed the resident's note and discussed the case with the resident. I agree with the resident's findings and plan as documented. SUBJECTIVE: Patient seen and examined in the ICU. Poorly arousable with intermittent periods of desaturation. Hypotensive despite volume resuscitation. Severe metabolic derrangement noted and will need Acute HD. Intake & Output 07/27/18 07/28/18 07/29/18 07/30/18 23:59 23:59 23:59 23:59 Output Total 600 Balance -600 Weight 210 lb Last Vital Signs Temp Pulse Resp BP Pulse Ox 93.6 F L 51 L 26 H 82/63 L 100 07/30/18 10:00 07/30/18 09:00 07/30/18 10:00 07/30/18 10:00 07/30/18 09:00 Active Medications Budesonide/Formoterol Fumarate (Symbicort 160/4.5mcg -) 2 puff IH BID [facility] Chlorhexidine Gluconate (Hibiclens For Decolonization -) 1 applic TP HS [facility] Dopamine HCl/Dextrose (Dopamine 400 Mg/D5w -) 400,000 mcg in 250 mls @ 17.86 mls/hr IVPB TITR [facility]; Protocol Insulin Aspart (Novolog Vial Sliding Scale -) 1 vial SQ Q6H [facility]; Protocol Mupirocin (Bactroban Ointment (For Decolonization) -) 1 applic NS BID [facility] Stop: 08/04/18 09:59 Pantoprazole Sodium (Protonix Iv) 40 mg IVPUSH BID [facility] GENERAL: Poorly responsive, tachypneic EYES: PERRLA ENT: Dry mucus membranes LUNGS: diffuse bilateral crackles, coarse breath sounds, no wheezes HEART: RRR, no murmurs ABDOMEN: Soft, nontender, BS present MUSCULOSKELETAL: No CVA Tenderness EXTREMITIES: 2+ pulses, no edema. NEUROLOGICAL: Poorly responsive Laboratory Results - last 24 hr 07/30/18 07/30/18 07/30/18 05:05 05:05 05:05 WBC 4.8 RBC 3.36 L Hgb 9.8 L Hct 30.7 L MCV 91.6 MCH 29.2 MCHC 31.9 L RDW 18.0 H Plt Count 215 D MPV 8.4 Absolute Neuts (auto) 3.9 Neutrophils % 81.6 Lymphocytes % 12.3 Monocytes % 5.6 Eosinophils % 0.4 Basophils % 0.1 Nucleated RBC % 0 PT with INR 21.90 H INR 1.84 H PTT (Actin FS) 38.6 H VBG pH POC VBG pCO2 POC VBG pO2 VBG HCO3 VBG O2 Sat (Monalisa) VBG Base Excess Sodium 133 L Potassium 6.0 H Chloride 101 Carbon Dioxide 22 Anion Gap 10 BUN 135.7 H* Creatinine 3.2 H Est GFR (CKD-EPI)AfAm 20.67 Est GFR (CKD-EPI)NonAf 17.84 Random Glucose 124 H Lactic Acid Calcium 7.7 L Phosphorus Magnesium Total Bilirubin 2.6 H AST 35 ALT 35 Alkaline Phosphatase 118 H Troponin I B-Natriuretic Peptide Total Protein 5.8 L Albumin 2.1 L TSH Urine Color Urine Appearance Urine pH Ur Specific Reading Urine Protein Urine Glucose (UA) Urine Ketones Urine Blood Urine Nitrite Urine Bilirubin Urine Urobilinogen Ur Leukocyte Esterase Urine WBC (Auto) Urine RBC (Auto) Urine Casts (Auto) U Epithel Cells (Auto) Urine Bacteria (Auto) Stool Occult Blood Blood Type Antibody Screen 07/30/18 07/30/18 07/30/18 05:05 05:05 05:05 WBC RBC Hgb Hct MCV MCH MCHC RDW Plt Count MPV Absolute Neuts (auto) Neutrophils % Lymphocytes % Monocytes % Eosinophils % Basophils % Nucleated RBC % PT with INR INR PTT (Actin FS) VBG pH POC VBG pCO2 POC VBG pO2 VBG HCO3 VBG O2 Sat (Monalisa) VBG Base Excess Sodium Potassium Chloride Carbon Dioxide Anion Gap BUN Creatinine Est GFR (CKD-EPI)AfAm Est GFR (CKD-EPI)NonAf Random Glucose Lactic Acid 1.7 Calcium Phosphorus 5.7 H Magnesium 3.0 H Total Bilirubin AST ALT Alkaline Phosphatase Troponin I 0.03 B-Natriuretic Peptide > 56729.0 H Total Protein Albumin TSH 9.42 H D Urine Color Urine Appearance Urine pH Ur Specific Reading Urine Protein Urine Glucose (UA) Urine Ketones Urine Blood Urine Nitrite Urine Bilirubin Urine Urobilinogen Ur Leukocyte Esterase Urine WBC (Auto) Urine RBC (Auto) Urine Casts (Auto) U Epithel Cells (Auto) Urine Bacteria (Auto) Stool Occult Blood Blood Type Antibody Screen 07/30/18 07/30/18 07/30/18 05:10 05:10 05:10 WBC RBC Hgb Hct MCV MCH MCHC RDW Plt Count MPV Absolute Neuts (auto) Neutrophils % Lymphocytes % Monocytes % Eosinophils % Basophils % Nucleated RBC % PT with INR INR PTT (Actin FS) VBG pH 7.34 POC VBG pCO2 39.9 L POC VBG pO2 34.2 VBG HCO3 20.7 L VBG O2 Sat (Monalisa) 52.2 L VBG Base Excess -4.2 L Sodium Potassium Chloride Carbon Dioxide Anion Gap BUN Creatinine Est GFR (CKD-EPI)AfAm Est GFR (CKD-EPI)NonAf Random Glucose Lactic Acid Calcium Phosphorus Magnesium Total Bilirubin AST ALT Alkaline Phosphatase Troponin I B-Natriuretic Peptide Total Protein Albumin TSH Urine Color Urine Appearance Urine pH Ur Specific Reading Urine Protein Urine Glucose (UA) Urine Ketones Urine Blood Urine Nitrite Urine Bilirubin Urine Urobilinogen Ur Leukocyte Esterase Urine WBC (Auto) Urine RBC (Auto) Urine Casts (Auto) U Epithel Cells (Auto) Urine Bacteria (Auto) Stool Occult Blood Negative Blood Type A POSITIVE Antibody Screen Negative 07/30/18 07/30/18 05:45 07:59 WBC RBC Hgb Hct MCV MCH MCHC RDW Plt Count MPV Absolute Neuts (auto) Neutrophils % Lymphocytes % Monocytes % Eosinophils % Basophils % Nucleated RBC % PT with INR INR PTT (Actin FS) VBG pH POC VBG pCO2 POC VBG pO2 VBG HCO3 VBG O2 Sat (Monalisa) VBG Base Excess Sodium Potassium Chloride Carbon Dioxide Anion Gap BUN Creatinine Est GFR (CKD-EPI)AfAm Est GFR (CKD-EPI)NonAf Random Glucose Lactic Acid Calcium Phosphorus Magnesium Total Bilirubin AST ALT Alkaline Phosphatase Troponin I B-Natriuretic Peptide Total Protein Albumin TSH Urine Color Dk yellow Urine Appearance Cloudy Urine pH 5.0 Ur Specific Reading 1.017 Urine Protein Negative Urine Glucose (UA) Negative Urine Ketones Negative Urine Blood 1+ H Urine Nitrite Positive H Urine Bilirubin 1+ H Urine Urobilinogen 1.0 Ur Leukocyte Esterase 1+ H Urine WBC (Auto) 1 Urine RBC (Auto) 23.4 Urine Casts (Auto) 7 U Epithel Cells (Auto) 1.1 Urine Bacteria (Auto) 986.0 Stool Occult Blood Positive Blood Type Antibody Screen ASSESSMENT/PLAN: Impending Acute Respiratory Failure Acute Systolic CHF EF 15% R/O Septic Shock Suspected GI bleed AMS: (?) Toxic Metabolic Encephalopathy Hypertension Hyperlipidemia Severe LV dysfunction (EF 15%) Acute on Chronic kidney disease stage 4 CAD s/p stents AMI S/P defibrillator placement Gout Diabetes COPD (?) Myxedema Will require intubation CVC to be inserted for pressors and for acute HD Payne-culture ID evaluation ECHO Hematology evaluation Endocrine evaluation: trial of steroids Strict I & O BD TX PPI Requires ICU monitoring Dr Castellon Critical care time spent in reviewing chart, evaluating patient and formulating plan - 36 minutes.
--- NOTE | 2018-07-30 11:16 | CON.GI ---
Consult Consult Specialty:: GI Referred by:: [facility] Reason for Consultation:: GI bleed - History of Present Illness Chief Complaint: Transferred from [place] for evaluation of hypotension, hypothermia History of Present Illness: 77M transferred from [place] for evaluation of hypothermia, hypotension. Question of rectal bleed at [place]. No overt bleeding noted while admitted. No melena, hematemesis reported. in on ASA/Eliquis Had colonoscopy 2016 that revealed diverticulosis and led to the removal of a tubular adnoma. Last EGD 2013 revealed erosive gastritis and pylori stricture, small hiatal hernia. Had recent fibrosure test c/w cirrhosis. He remains on Carlo hugger. He is non- verbal. - Past Medical History Cardio/Vascular: Yes: CAD, CHF (severe global hypokinesis), HTN, Hyperlipdemia, [place] ("several years ago"), Pulmonary Hypertension, Other (defibrillator,s/p cardiac stent at [facility]) Pulmonary: Yes: COPD ("emphysema", per pt's daughter (Yeimi)) Gastrointestinal: Yes: Diverticulosis, Other (colon adenoma removed 02/19/16) Hepatobiliary: Yes: Cholelithiasis (s/p lap choly) Renal/: Yes: Renal Failure (chronic), Other (renal cysts) Psych: Yes: Anxiety Rheumatology: Yes: Gout Endocrine: Yes: Diabetes Mellitus - Past Surgical History Past Surgical History: Yes: AICD, Cholecystectomy, Colonoscopy - Alcohol/Substance Use Hx Alcohol Use: Yes (quit several years ago) History of Substance Use: reports: None - Smoking History Smoking history: Former smoker Have you smoked in the past 12 months: No Aproximately how many cigarettes per day: 10 If you are a former smoker, when did you quit?: many years ago - Social History Usual Living Arrangement: Shelter ADL: Independent 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 Place of : [facility] History of Recent Travel: No Home Medications - Allergies Allergies/Adverse Reactions: Allergies Allergy/AdvReac Type Severity Reaction Status Date / Time No Known Drug Allergies Allergy Verified 07/30/18 04:28 heparin AdvReac Severe bleeding Verified 07/30/18 04:28 - Home Medications Home Medications: Ambulatory Orders Aspirin [ASA -] 81 mg PO DAILY 01/02/17 Cholecalciferol (Vitamin D3) [Vitamin D -] 5,000 unit PO WEEKLY 01/02/17 Febuxostat [Uloric] 40 mg PO DAILY 01/02/17 Gabapentin 300 mg PO DAILY 01/02/17 Glimepiride [Amaryl] 2 mg PO DAILY 01/02/17 Budesonide/Formeterol Fumarate [SYMBICORT 160/4.5mcg -] 2 puff IH BID #1 inhaler 06/21/18 Atorvastatin Ca [Lipitor] 40 mg PO HS tablet 07/27/18 Carvedilol [Coreg -] 3.125 mg PO DAILY tablet 07/27/18 Furosemide [Lasix -] 20 mg PO DAILY tablet 07/27/18 Olanzapine [Zyprexa -] 2.5 mg PO HS tablet 07/27/18 Apixaban [Eliquis -] 2.5 mg PO Q24H 07/30/18 Family Disease History - Family Disease History Family Disease History: Diabetes: Mother ( age 87), Heart Disease: Father ( lived in his 90s) Review of Systems Unable to obtain ROS, reason: Patient non verbal Physical Exam-GI Vital Signs: Vital Signs Temperature 93.6 F L 07/30/18 10:00 Pulse Rate 51 L 07/30/18 09:00 Respiratory Rate 26 H 07/30/18 10:00 Blood Pressure 82/63 L 07/30/18 10:00 O2 Sat by Pulse Oximetry (%) 100 07/30/18 09:00 Constitutional: Yes: Calm Eyes: No: Sclera Icterus Cardiovascular: Yes: Bradycardia Respiratory: Yes: Diminished (at bases b/l) Gastrointestinal Inspection: No: Distention ...Auscultate: Yes: Normoactive Bowel Sounds ...Palpate: Yes: Soft. No: Tenderness ...Percussion: No: Tympanitic ...Rectal Exam: Yes: Other (No external lesions no masses, copious light ruiz stool in rectal vault, no blood / melena) Labs: CBC, BMP 07/30/18 08:29 07/30/18 07:03 INR, PTT INR 1.84 (0.83-1.09) H 07/30/18 05:05 Problem List - Problems (1) GI bleed Assessment/Plan: No overt bleeding and light ruiz stool on exam Continue PPI for now: protonix 40mg IVPB daily Monitor for overt bleeding Renal evaluation Abdominal US to eval abnormal LFTS when able ? goals of care: to be determined Code(s): K92.2 - GASTROINTESTINAL HEMORRHAGE, UNSPECIFIED
--- NOTE | 2018-07-30 11:36 | CONSULT ---
Consult - text type - Consultation Consultation Note: Renal consult for ELLIOTT on CKD This is a 77 year old male with hx of CKD stage 3 (baseline Cr ~2), Cardiomyopathy with low LVEF, CAD, Hypertension, Hyperlipidemia with recent admission for AMS during which time he was diagnosed with DIC and ELLIOTT ( volume related vs. DIC) now presents from [place] with hypotension, suspected GI bleed and worsening renal function. Pt is currently in the ICU. He is lethagic and not able to provide any history. Plat is for intubated for airwary protection. BP is very low and is on IVF. Pt not able to provide further history. PMHx: as above Allergies: NKDA Family Hx: [place] Social Hx: No T/A/D ROS: unable to obtain because of clinical status Home Medications Medication Instructions Recorded Aspirin [ASA -] 81 mg PO DAILY 01/02/17 Cholecalciferol (Vitamin D3) 5,000 unit PO WEEKLY 01/02/17 [Vitamin D -] Febuxostat [Uloric] 40 mg PO DAILY 01/02/17 Gabapentin 300 mg PO DAILY 01/02/17 Glimepiride [Amaryl] 2 mg PO DAILY 01/02/17 Budesonide/Formeterol Fumarate 2 puff IH BID #1 inhaler 06/21/18 [SYMBICORT 160/4.5mcg -] Atorvastatin Ca [Lipitor] 40 mg PO HS tablet 07/27/18 Carvedilol [Coreg -] 3.125 mg PO DAILY tablet 07/27/18 Furosemide [Lasix -] 20 mg PO DAILY tablet 07/27/18 Olanzapine [Zyprexa -] 2.5 mg PO HS tablet 07/27/18 Apixaban [Eliquis -] 2.5 mg PO Q24H 07/30/18 Vital Signs Temperature 93.6 F L 07/30/18 10:00 Pulse Rate 51 L 07/30/18 09:00 Respiratory Rate 26 H 07/30/18 10:00 Blood Pressure 82/63 L 07/30/18 10:00 O2 Sat by Pulse Oximetry (%) 100 07/30/18 09:00 Intake & Output 07/27/18 07/28/18 07/29/18 07/30/18 23:59 23:59 23:59 23:59 Output Total 600 Balance -600 Weight 95.254 kg Mod respiratory distress Lethagic Bradycardic Dec BS ++ edema in LE CBC, BMP 07/30/18 08:29 07/30/18 07:03 Current Medications Albumin Human (Albumin Human 25%) 12.5 gm IVPB Q30M [facility] Stop: 07/30/18 13:01 Budesonide/Formoterol Fumarate (Symbicort 160/4.5mcg -) 2 puff IH BID [facility] Chlorhexidine Gluconate (Hibiclens For Decolonization -) 1 applic TP HS [facility] Dopamine HCl/Dextrose (Dopamine 400 Mg/D5w -) 400,000 mcg in 250 mls @ 17.86 mls/hr IVPB TITR [facility]; Protocol Sodium Chloride (Normal Saline -) 250 mls @ 3,000 mls/hr IV PRN PRN PRN Reason: Hypotension during Dialysis Stop: 07/31/18 11:22 Midazolam HCl (Midazolam 100mg/100ml-0.9%Nacl) 100 mg in 100 mls @ 1 mls/hr IVPB TITR [facility]; Protocol Insulin Aspart (Novolog Vial Sliding Scale -) 1 vial SQ Q6H [facility]; Protocol Mupirocin (Bactroban Ointment (For Decolonization) -) 1 applic NS BID [facility] Stop: 08/04/18 09:59 Pantoprazole Sodium (Protonix Iv) 40 mg IVPUSH BID [facility] 77 year old male with hx of CKD stage 3 (baseline Cr ~2), Cardiomyopathy with low LVEF, CAD, Hypertension, Hyperlipidemia with recent admission for AMS during which time he was diagnosed with DIC and ELLIOTT (volume related vs. DIC) now presents from [place] with hypotension, suspected GI bleed and worsening renal function. #Hypotension/Shock r/o Septic shock vs. cardiogenic vs. hypvolemic from blood loss #ELLIOTT on CKD with very high BUN #Hyperkalemia in setting of ELLIOTT #Fluid overload #Cardiomyopathy #Lactic acidosis/Metabolic acidosis #Acute on chronic anemia for acute dialysis today with no UF continue vaospressers to maintain MAP > 65 Trend electrolytes GI workup for anemia and suspected GI bleed Vent support overall prognosis is poor discussed case with daughter who consented for HD Thank you Mikhail Ling DO
[2018-07-30] MEDS ORDERED: MIDAZOLAM HCL 5 MG/1 ML Single Dose Vial ONE (11:44)
[2018-07-30] MEDS ORDERED: MIDAZOLAM IN 0.9 % SOD.CHLORID 100 MG/100 ML PLAST..BAG IVPB SCH (11:45)
[2018-07-30] MEDS ORDERED: VANCOMYCIN 1 GRAM (PRE-DOCKED) 1,000 MG/250 ML BAG IVPB ONE ×2 (12:00→14:45)
[2018-07-30] MEDS: PANTOPRAZOLE SODIUM 40 MG VIAL IVPUSH SCH ×2 (12:02→21:53)
[2018-07-30] MEDS: BUDESONIDE/FORMETEROL FUMARATE 160/4.5 mcg INHALER IH SCH ×2 (12:02→21:54)
[2018-07-30] MEDS: MUPIROCIN 2% TOPICAL OINTMENT FOR DECOLONIZATION NS SCH ×2 (12:03→23:06)
[2018-07-30] MEDS ORDERED: MIDAZOLAM HCL 2 MG/2 ML SINGLE DOSE VIAL ONE (12:08)
--- NOTE | 2018-07-30 12:45 | PN ---
Progress Note (short form) - Note Progress Note: ID CONSULT DICTATED MULTIORGAN SYSTEM FAILURE RESP FAILURE ? PNEUMONIA RENAL FAILURE SEPSIS R/O SEPTIC SHOCK TOXIC METABOLIC ENCEPHALOPATHY LACTIC ACIDOSIS PENDING SEPSIS WORKUP EMPIRIC MEROPENEM/ VANCOMYCIN ADJUSTED FOR RENAL FAILURE PROGNOSIS GUARDED CRITICAL CARE TIME 45MIN
--- NOTE | 2018-07-30 13:12 | PN ---
Teaching Attending Note Name of Resident: Augusta Yanez ATTENDING PHYSICIAN STATEMENT I saw and evaluated the patient. I reviewed the resident's note and discussed the case with the resident. I agree with the resident's findings and plan as documented. SUBJECTIVE: Patient is a 77yo male with PMHx of HTN, HLD, systolic CHF with (EF 15%) s/p PPM/defibrillator, CKD stage 3, CAD s/p stents, IL, gout, DM, COPD (not on 02), with recent diagnosis of thrombocytopenia ([place] reason; possible due to chronic DIC as per Hem/onc. vs HIT but who presents to the ED from [facility] with hypotension of (70/40), hypothermia to 94.2F, with GIB as per [facility]. As per patient's daughter, pt was more responsive yesterday and was tolerating oral intake when she visited him. Patient is admitted to ICU, while in the ICU unit patient got intubated for airway protection. OBJECTIVE: Vital Signs Temperature 93.6 F L 07/30/18 10:00 Pulse Rate 51 L 07/30/18 09:00 Respiratory Rate 18 07/30/18 11:45 Blood Pressure 100/76 07/30/18 11:00 O2 Sat by Pulse Oximetry (%) 100 07/30/18 09:00 Initial Vital Signs Temp Pulse Resp BP Pulse Ox 93.7 F L 72 20 72/52 L 98 07/30/18 05:36 07/30/18 05:36 07/30/18 05:36 07/30/18 05:36 07/30/18 05:36 GENERAL: The patient is intubated sedated on a bare hugger. HEAD: Normal with no signs of trauma. EYES: PERRL, sclera anicteric, conjunctiva clear. ENT: Ears normal, positive for ET tube. NECK: Trachea midline, full range of motion, supple. LUNGS: decreased BS BL, positive for ET tube , no accessory muscle use. HEART: RRR, S1, S2 positive, TOM 2/6 ,no rub or gallop. ABDOMEN: Soft, nontender, nondistended, normoactive bowel sounds, no guarding, no rebound, no hepatosplenomegaly, no masses. EXTREMITIES: 2+ pulses, cold extremities with discolored toes. NEUROLOGICAL: Cranial nerves II through XII grossly intact. PSYCH: unable to access SKIN: Warm, dry, normal turgor, no rashes or lesions noted CBCD WBC 4.9 K/mm3 (4.0-10.0) 07/30/18 08:29 RBC 2.91 M/mm3 (4.00-5.60) L 07/30/18 08:29 Hgb 8.4 GM/dL (11.7-16.9) L 07/30/18 08:29 Hct 26.8 % (35.4-49) L 07/30/18 08:29 MCV 92.0 fl (80-96) 07/30/18 08:29 MCHC 31.4 g/dl (32.0-35.9) L 07/30/18 08:29 RDW 18.3 % (11.9-15.9) H 07/30/18 08:29 Plt Count 172 K/MM3 (134-434) 07/30/18 08:29 MPV 8.2 fl (7.5-11.1) 07/30/18 08:29 CMP Sodium 135 mmol/L (136-145) L 07/30/18 07:03 Potassium 5.3 mmol/L (3.5-5.1) H 07/30/18 07:03 Chloride 104 mmol/L (98-107) 07/30/18 07:03 Carbon Dioxide 19 mmol/L (21-32) L 07/30/18 07:03 Anion Gap 11 MMOL/L (8-16) 07/30/18 07:03 BUN 140.3 mg/dL (7-18) H* 07/30/18 07:03 Creatinine 3.1 mg/dL (0.55-1.3) H 07/30/18 07:03 Random Glucose 72 mg/dL (74-106) L 07/30/18 07:03 Calcium 7.5 mg/dL (8.5-10.1) L 07/30/18 07:03 Total Bilirubin 2.6 mg/dL (0.2-1) H 07/30/18 05:05 AST 35 U/L (15-37) 07/30/18 05:05 ALT 35 U/L (13-61) 07/30/18 05:05 Alkaline Phosphatase 118 U/L (45-117) H 07/30/18 05:05 Total Protein 5.8 g/dl (6.4-8.2) L 07/30/18 05:05 Albumin 2.1 g/dl (3.4-5.0) L 07/30/18 05:05 CARDIAC ENZYMES Troponin I 0.03 ng/ml (0.00-0.05) 07/30/18 05:05 Current Medications Generic Name Dose Route Start Last Admin Trade Name Freq PRN Reason Stop Dose Admin Albumin Human 12.5 gm 07/30/18 11:30 Albumin Human 25% IVPB 07/30/18 13:01 Q30M CLIVE Budesonide/Formoterol Fumarate 2 puff 07/30/18 10:00 07/30/18 12:02 Symbicort 160/4.5mcg - IH Not Given BID CLIVE Chlorhexidine Gluconate 1 applic 07/30/18 22:00 Hibiclens For Decolonization - TP HS CLIVE Dopamine HCl/Dextrose 400,000 mcg in 250 mls @ 17.86 mls/hr 07/30/18 10:00 10:00 Dopamine 400 Mg/D5w - IVPB 5 mcg/kg/min TITR CLIVE 17.86 mls/hr Administration Protocol 5 MCG/KG/MIN Sodium Chloride 250 mls @ 3,000 mls/hr 07/30/18 11:22 Normal Saline - IV 07/31/18 11:22 PRN PRN Hypotension during Dialysis Midazolam HCl 100 mg in 100 mls @ 1 mls/hr 07/30/18 11:45 Midazolam 100mg/100ml-0.9%Nacl IVPB TITR CLIVE Protocol 1 MG/HR Vancomycin HCl 1,000 mg in 250 mls @ 166.667 mls/hr 07/30/18 12:00 Vancomycin (Pre-Docked) IVPB 07/30/18 13:29 ONCE ONE Protocol Meropenem 500 mg/ Dextrose 100 mls @ 200 mls/hr 07/30/18 12:00 IVPB BID CLIVE Insulin Aspart 1 vial 07/30/18 08:30 07/30/18 08:30 Novolog Vial Sliding Scale - SQ Not Given Q6H CLIVE Protocol Mupirocin 1 applic 07/30/18 10:00 07/30/18 12:03 Bactroban Ointment (For Decolonization) - NS 08/04/18 09:59 Not Given BID CLIVE Pantoprazole Sodium 40 mg 07/30/18 10:00 07/30/18 12:02 Protonix Iv IVPUSH 40 mg BID [facility] Administration Home Medications Medication Instructions Recorded Aspirin [ASA -] 81 mg PO DAILY 01/02/17 Cholecalciferol (Vitamin D3) 5,000 unit PO WEEKLY 01/02/17 [Vitamin D -] Febuxostat [Uloric] 40 mg PO DAILY 01/02/17 Gabapentin 300 mg PO DAILY 01/02/17 Glimepiride [Amaryl] 2 mg PO DAILY 01/02/17 Budesonide/Formeterol Fumarate 2 puff IH BID #1 inhaler 06/21/18 [SYMBICORT 160/4.5mcg -] Atorvastatin Ca [Lipitor] 40 mg PO HS tablet 07/27/18 Carvedilol [Coreg -] 3.125 mg PO DAILY tablet 07/27/18 Furosemide [Lasix -] 20 mg PO DAILY tablet 07/27/18 Olanzapine [Zyprexa -] 2.5 mg PO HS tablet 07/27/18 Apixaban [Eliquis -] 2.5 mg PO Q24H 07/30/18 Laboratory Tests 07/30/18 07/30/18 07/30/18 05:05 05:05 05:05 PT with INR 21.90 H INR 1.84 H PTT (Actin FS) 38.6 H Potassium Carbon Dioxide Anion Gap BUN Creatinine Lactic Acid Ammonia B-Natriuretic Peptide 00825.6 H Albumin 2.1 L TSH 9.42 H D Free T4 1.24 H 07/30/18 07/30/18 07/30/18 07:03 08:29 10:46 PT with INR INR PTT (Actin FS) Potassium 5.3 H Carbon Dioxide 19 L Anion Gap 11 BUN 140.3 H* Creatinine 3.1 H Lactic Acid 3.1 H* Ammonia 37.30 H B-Natriuretic Peptide Albumin TSH Free T4 ASSESSMENT AND PLAN: Patient is a 77yo male with PMHx of HTN, HLD, systolic CHF with (EF 15%) s/p PPM/defibrillator, CKD stage 3, CAD s/p stents, IL, gout, DM, COPD (not on 02), with recent diagnosis of thrombocytopenia (unknown reason; possible due to chronic DIC as per Hem/onc. vs HIT but who presents to the ED from [facility] with hypotension of (70/40), hypothermia to 94.2F, with GIB as per [facility]. Patient is admitted to ICU. # Acute respiratory failure s/p intubation, further management per ICU team # Acute hypothermia/hypotension: cardiogenic shock vs sepsis; ID consulted; chowdhury cx, IV meropenem and vancomycin, further care by ID # Possible GIB: GI consulted, monitor h/h, stool OB positive, hold aspirin and Eliquis for now till gets evaluated by Reconciler, Protonix IV daily. # Hx of gout continue Urolic # Acute on chronic Kidney failure; nephrology on the case, will start the patient on HD if possible # T2DM on SS with coverage # Elevated TSH ;subclinical hypothyroidism , given HC 100mg IV, will continue with 100mg IV q8h, low dose synthroid as per endocrine. Previous w/u: LDH, haptoglobin nl -FOBT neg -P and C ANCA, HERB neg -No evidence of Lupus anticoagulant -Mixing study: PT is elevated and PTT is nl, also Factor VII percentage is low. 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 s/p Argabotran, c/w eliquis 5mg q24h, Heme recs appreciated.
--- NOTE | 2018-07-30 13:20 | CONSULT ---
Consult Consult Specialty:: Endocrinology Referred by:: Augusta Yanez Reason for Consultation:: Abnormal TFT - History of Present Illness Chief Complaint: hypotension, lethargy History of Present Illness: This is a 77 year old male with hx of CKD stage 3 (baseline Cr ~2), Cardiomyopathy with low LVEF, CAD, Hypertension, Hyperlipidemia with recent admission for AMS during which time he was diagnosed with DIC and ELLIOTT ( volume related vs. DIC) now presents from [facility] with hypotension, suspected GI bleed and worsening renal function. Pt is currently in the ICU intubated and unable to give history. Chart reviewed. Case discussed with housestaff. - History Source History Provided By: Medical Record Limitations to Obtaining History: Intubated - Past Medical History Cardio/Vascular: Yes: CAD, CHF (severe global hypokinesis), HTN, Hyperlipdemia, [place] ("several years ago"), Pulmonary Hypertension, Other (defibrillator,s/p cardiac stent at [facility]) Pulmonary: Yes: COPD ("emphysema", per pt's daughter (Yeimi)) Gastrointestinal: Yes: Diverticulosis, Other (colon adenoma removed 02/19/16) Hepatobiliary: Yes: Cholelithiasis (s/p lap choly) Renal/: Yes: Renal Failure (chronic), Other (renal cysts) Psych: Yes: Anxiety Rheumatology: Yes: Gout Endocrine: Yes: Diabetes Mellitus - Past Surgical History Past Surgical History: Yes: AICD, Cholecystectomy, Colonoscopy - Alcohol/Substance Use Hx Alcohol Use: Yes (quit several years ago) History of Substance Use: reports: None - Smoking History Smoking history: Former smoker Have you smoked in the past 12 months: No Aproximately how many cigarettes per day: 10 If you are a former smoker, when did you quit?: many years ago - Social History Usual Living Arrangement: Care Home ADL: Independent 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 History of Recent Travel: No Home Medications - Allergies Allergies/Adverse Reactions: Allergies Allergy/AdvReac Type Severity Reaction Status Date / Time No Known Drug Allergies Allergy Verified 07/30/18 04:28 heparin AdvReac Severe bleeding Verified 07/30/18 04:28 - Home Medications Home Medications: Ambulatory Orders Aspirin [ASA -] 81 mg PO DAILY 01/02/17 Cholecalciferol (Vitamin D3) [Vitamin D -] 5,000 unit PO WEEKLY 01/02/17 Febuxostat [Uloric] 40 mg PO DAILY 01/02/17 Gabapentin 300 mg PO DAILY 01/02/17 Glimepiride [Amaryl] 2 mg PO DAILY 01/02/17 Budesonide/Formeterol Fumarate [SYMBICORT 160/4.5mcg -] 2 puff IH BID #1 inhaler 06/21/18 Atorvastatin Ca [Lipitor] 40 mg PO HS tablet 07/27/18 Carvedilol [Coreg -] 3.125 mg PO DAILY tablet 07/27/18 Furosemide [Lasix -] 20 mg PO DAILY tablet 07/27/18 Olanzapine [Zyprexa -] 2.5 mg PO HS tablet 07/27/18 Apixaban [Eliquis -] 2.5 mg PO Q24H 07/30/18 Family Disease History - Family Disease History Family Disease History: Diabetes: Mother ( age 87), Heart Disease: Father ( lived in his 90s) Review of Systems Unable to obtain ROS, reason: Intubated Physical Exam Vital Signs: Vital Signs Temperature 93.6 F L 07/30/18 10:00 Pulse Rate 51 L 07/30/18 09:00 Respiratory Rate 18 07/30/18 11:45 Blood Pressure 100/76 07/30/18 11:00 O2 Sat by Pulse Oximetry (%) 100 07/30/18 09:00 Constitutional: Yes: Other (Intubated) Eyes: Yes: Conjunctiva Clear HENT: Yes: Atraumatic, Normocephalic Neck: Yes: Supple, Trachea Midline Cardiovascular: Yes: Regular Rate and Rhythm Respiratory: Yes: CTA Bilaterally Gastrointestinal: Yes: Normal Bowel Sounds, Soft Extremities: Yes: WNL Edema: No Neurological: Yes: Other (intubated, unable to assess.) Labs: CBC, BMP 07/30/18 08:29 07/30/18 07:03 Assessment/Plan AP: Respiratory failure AMS Septic shock Subclinical hypothyroidism CHF ?GI bleeding With TSH 9.42 and FT4 of 1.24 which is reported as high by the lab, possibility of Myxedema is almost none. Pt has subclinical hypothyroidism Will start LT4 25 mcg daily IM until pt is able to take it orally. Will add Hydrocortisone 100mg Q 8hrs as pt remained hypotensive in spite of IV hydration. Will f/u
--- NOTE | 2018-07-30 13:33 | EKG ---
Test Reason : Blood Pressure : / mmHG Vent. Rate : 070 BPM Atrial Rate : 070 BPM P-R Int : 206 ms QRS Dur : 192 ms QT Int : 550 ms P-R-T Axes : 000 -42 047 degrees QTc Int : 594 ms AV dual-paced rhythm Biventricular pacemaker detected ABNORMAL ECG WHEN COMPARED WITH ECG OF 20-JUL-2018 16:49, VENT. RATE HAS DECREASED BY 16 BPM Confirmed by JONO MORALES MD ([id number]) on 07/30/2018 1:33:01 PM Referred By: Confirmed By:JONO MORALES MD
--- NOTE | 2018-07-30 13:35 | PROC ---
Central Line Insertion Indication: Vasopressor Risks and Benefits Explained: Yes Consent on Chart: Yes Central Line: Dialysis Cath, Tri Lumen Anesthesia: 1% Lidocaine Sterile Technique: Yes Ultrasound Guided Assistance: Yes Position: Right Internal Jugular Post Insertion: Yes: Other Remarks: Patient had large internal jugular visible on ultrasound. Seldinger technique was applied. Needle was inserted and flashback of blood was obtained. Wire was threaded into the R internal jugular vein. Dilated the vein using both dilators provided in the trialysis catheter kit with adequate blood return. The catheter itself was unable to be threaded through the vein. Did not continue to force catheter into vein after multiple attempts to thread. Procedure was aborted due to the inability to thread the catheter over the wire and into the internal jugular. Will attempt to place trialysis catheter into the right femoral vein.
--- NOTE | 2018-07-30 13:55 | CONS ---
DATE OF CONSULTATION: DATE OF DICTATION: 07/30/2018 The patient is a 77-year-old male evaluated for sepsis. History was obtained from the chart as he cannot give a history. He is presently intubated in the intensive care unit. The patient, according to the chart, had a recent complicated [facility] admission from July 01 through July 27, 2018. His course at that time was complicated by altered mental status, kidney failure, and heparin-induced thrombocytopenia. [facility] was [facility] to [facility]. He is now re-admitted 3 days later on July 30, 2018 with reports of altered mental status and hypotension. At the [facility], he was noted to be more lethargic and hypotensive with a blood pressure of 72/46. In addition, there were reports of bloody stool. He was transferred to the emergency room where his course was complicated by hypothermia and hypotension. He required intubation. He is presently intubated on mechanical ventilation in the intensive care unit. The patient is hypotensive on pressors. He was noted to have renal failure and is being evaluated for hemodialysis. The patient was placed on a warming blanket. CAT scan of the head was performed and was negative for acute infarct or bleed. PAST MEDICAL HISTORY: Positive for dementia, congestive heart failure with low ejection fraction, chronic kidney disease, coronary artery disease, myocardial infarction, hypertension, hyperlipidemia, gouty arthritis. PAST SURGICAL HISTORY: Status post permanent pacemaker, coronary artery stent. ALLERGIES: No known allergies. MEDICATIONS: Aspirin, Neurontin, Amaryl, Lipitor, Coreg, Lasix, Zyprexa, Eliquis. SOCIAL HISTORY: Presently residing in a nursing home facility. No documented tobacco or alcohol use. SYSTEMS REVIEW: Neurologic: Positive for altered mental status. Cardiac: Negative chest pain or palpitations. Respiratory: As per HPI. Gastrointestinal: As per HPI. Genitourinary: Positive for renal failure. LABORATORY DATA: White count 4.9, hematocrit 26.8, platelet count 172 with 82 neutrophils, 10 lymphocytes, 6 monocytes. BUN 140, creatinine 3.1. Urinalysis 1+ leukocyte esterase. INR 1.8. Urinalysis 1 white cell. Lactic acid 3.1. Total bilirubin 2.3, alkaline phosphatase 118, AST 35, ALT 35. Cultures pending. Chest x-ray shows some increased markings to the bases bilaterally. PHYSICAL EXAMINATION: General: He is on the ventilator. He is not responsive. Vital Signs: Temperature 93.6, blood pressure 82/63, pulse 51, respiratory rate 22. HEENT: Sclerae anicteric. Patient is orally intubated. Heart: Sounds S1, S2. The patient is bradycardic. Lungs: Air entry bilaterally. Mechanically ventilated. Abdomen: Soft and nontender. Extremities: Positive for edema. IMPRESSION: 1. Multiorgan system failure. 2. Respiratory failure. 3. Rule out pneumonia. 4. Hypothermia, hypotension possibly secondary to sepsis. 5. Sepsis/septic shock. 6. Toxic metabolic encephalopathy. 7. Lactic acidosis. PLAN: Await culture results. Continue hemodynamic and ventilatory support. Renal evaluation. Obtain urine Legionella and pneumococcal antigens. Empiric antibiotic coverage with vancomycin and Meropenem adjusted for renal insufficiency. Prognosis is guarded. CRITICAL CARE TIME SPENT: 45 minutes. Thank you for the kind referral JONO MENDOZA M.D. [id number]
--- NOTE | 2018-07-30 14:35 | PROC ---
Intubation - Intubation Reason for Intubation: Respiratory Insufficiency, Airway Protection Intubation Method: orotracheal Blade used: Glidescope Tube Size (cm): 7.5 Tube position @ lip (cm): 22 Tube position confirmed by: CO2 detector, Breath sounds Breath Sounds after Intubation: equal
--- NOTE | 2018-07-30 14:59 | PROC ---
Central Line Insertion Indication: CVP Monitoring, Vasopressor Risks and Benefits Explained: Yes Consent on Chart: Yes Central Line: Dialysis Cath, Tri Lumen Anesthesia: 1% Lidocaine Sterile Technique: Yes Ultrasound Guided Assistance: Yes Position: Right Femoral Post Insertion: Yes: Other (non-pulsatile blood returned) Sterile Dressing Applied: Yes
[2018-07-30] MEDS: MEROPENEM 500 MG in DEXTROSE 5%-WATER 100 ML IVPB SCH ×2 (15:00→21:53)
--- NOTE | 2018-07-30 15:57 | CONSULT ---
Consultation: REQUESTING PROVIDER: CONSULT REQUEST: We have been asked to medically evaluate this patient for anticoagulation. HISTORY OF PRESENT ILLNESS: This is a 77 yo M with PMH of HTN, HLD, HFREF s/p defibrillator, CKD stake 4, CAD+ [place] s/p pci stent, gout, DM, COPD, who presented due to hypotension, hypothermia, possible GI bleeding. The patient was intubated, started on dopamine for septic shock. 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 Hem Onc was consulted for anticoagulation recommendations in light of possible GI bleeding. The patient is intubated, ROS is not possible. History is taken from medical documentation. REVIEW OF SYSTEMS: N/A PHYSICAL EXAMINATION Vital Signs - 24 hr 07/30/18 07/30/18 07/30/18 05:36 05:42 06:23 Temperature 93.7 F L Pulse Rate 72 70 Pulse Rate [ Apical] Respiratory 20 16 Rate Blood Pressure 72/52 L Blood Pressure 78/52 L [Right Arm] O2 Sat by Pulse 98 Oximetry (%) 07/30/18 07/30/18 07/30/18 06:53 07:15 07:45 Temperature 93.5 F L Pulse Rate 70 Pulse Rate [ 70 70 Apical] Respiratory 16 22 H Rate Blood Pressure Blood Pressure 83/55 L 75/55 L [Right Arm] O2 Sat by Pulse 98 100 Oximetry (%) 07/30/18 07/30/18 07/30/18 09:00 10:00 11:00 Temperature 93.5 F L 93.6 F L Pulse Rate 51 L Pulse Rate [ Apical] Respiratory 22 H 26 H 12 Rate Blood Pressure 78/63 L 82/63 L 100/76 Blood Pressure [Right Arm] O2 Sat by Pulse 100 Oximetry (%) 07/30/18 11:45 Temperature Pulse Rate Pulse Rate [ Apical] Respiratory 18 Rate Blood Pressure Blood Pressure [Right Arm] O2 Sat by Pulse Oximetry (%) GENERAL: Intubated, sedated HEAD: Normal with no signs of trauma. EYES: Pupils equal, round and reactive to light. EARS, NOSE, THROAT: intubated, no bleeding from mouth, no dischage. NECK: Supple LUNGS: Diminished, no wheezing, no rhales. HEART: Regular rate and rhythm, normal S1 and S2 without murmur, rub or gallop. ABDOMEN: Soft, nontender, hypoactive bowel sounds. MUSCULOSKELETAL: Normal range of motion at all joints. No bony deformities or tenderness. UPPER EXTREMITIES: No peripheral edema. LOWER EXTREMITIES: 1+ pulses, left foot: colder, left toe purple, right foot no color changes, warm, trace peripheral edema NEUROLOGICAL: Sedated SKIN: No rashes Laboratory Results - last 24 hr 07/30/18 07/30/18 07/30/18 05:05 05:05 05:05 WBC 4.8 RBC 3.36 L Hgb 9.8 L Hct 30.7 L MCV 91.6 MCH 29.2 MCHC 31.9 L RDW 18.0 H Plt Count 215 D MPV 8.4 Absolute Neuts (auto) 3.9 Neutrophils % 81.6 Lymphocytes % 12.3 Monocytes % 5.6 Eosinophils % 0.4 Basophils % 0.1 Nucleated RBC % 0 PT with INR 21.90 H INR 1.84 H PTT (Actin FS) 38.6 H Puncture Site ABG pH ABG pCO2 at Pt Temp ABG pO2 at Pt Temp ABG HCO3 ABG O2 Sat (Measured) ABG O2 Content ABG Base Excess Rahat Test VBG pH POC VBG pCO2 POC VBG pO2 VBG HCO3 VBG O2 Sat (Monalisa) VBG Base Excess O2 Delivery Device Oxygen Flow Rate Sodium 133 L Potassium 6.0 H Chloride 101 Carbon Dioxide 22 Anion Gap 10 BUN 135.7 H* Creatinine 3.2 H Est GFR (CKD-EPI)AfAm 20.67 Est GFR (CKD-EPI)NonAf 17.84 POC Glucometer Random Glucose 124 H Lactic Acid Calcium 7.7 L Phosphorus Magnesium Total Bilirubin 2.6 H AST 35 ALT 35 Alkaline Phosphatase 118 H Ammonia Troponin I B-Natriuretic Peptide Total Protein 5.8 L Albumin 2.1 L TSH Free T4 Urine Color Urine Appearance Urine pH Ur Specific [place] Urine Protein Urine Glucose (UA) Urine Ketones Urine Blood Urine Nitrite Urine Bilirubin Urine Urobilinogen Ur Leukocyte Esterase Urine WBC (Auto) Urine RBC (Auto) Urine Casts (Auto) U Epithel Cells (Auto) Urine Bacteria (Auto) Stool Occult Blood Blood Type Antibody Screen 07/30/18 07/30/18 07/30/18 05:05 05:05 05:05 WBC RBC Hgb Hct MCV MCH MCHC RDW Plt Count MPV Absolute Neuts (auto) Neutrophils % Lymphocytes % Monocytes % Eosinophils % Basophils % Nucleated RBC % PT with INR INR PTT (Actin FS) Puncture Site ABG pH ABG pCO2 at Pt Temp ABG pO2 at Pt Temp ABG HCO3 ABG O2 Sat (Measured) ABG O2 Content ABG Base Excess Rahat Test VBG pH POC VBG pCO2 POC VBG pO2 VBG HCO3 VBG O2 Sat (Monalisa) VBG Base Excess O2 Delivery Device Oxygen Flow Rate Sodium Potassium Chloride Carbon Dioxide Anion Gap BUN Creatinine Est GFR (CKD-EPI)AfAm Est GFR (CKD-EPI)NonAf POC Glucometer Random Glucose Lactic Acid 1.7 Calcium Phosphorus 5.7 H Magnesium 3.0 H Total Bilirubin AST ALT Alkaline Phosphatase Ammonia Troponin I 0.03 B-Natriuretic Peptide 64476.6 H Total Protein Albumin TSH 9.42 H D Free T4 1.24 H Urine Color Urine Appearance Urine pH Ur Specific [place] Urine Protein Urine Glucose (UA) Urine Ketones Urine Blood Urine Nitrite Urine Bilirubin Urine Urobilinogen Ur Leukocyte Esterase Urine WBC (Auto) Urine RBC (Auto) Urine Casts (Auto) U Epithel Cells (Auto) Urine Bacteria (Auto) Stool Occult Blood Blood Type Antibody Screen 07/30/18 07/30/18 07/30/18 05:10 05:10 05:10 WBC RBC Hgb Hct MCV MCH MCHC RDW Plt Count MPV Absolute Neuts (auto) Neutrophils % Lymphocytes % Monocytes % Eosinophils % Basophils % Nucleated RBC % PT with INR INR PTT (Actin FS) Puncture Site ABG pH ABG pCO2 at Pt Temp ABG pO2 at Pt Temp ABG HCO3 ABG O2 Sat (Measured) ABG O2 Content ABG Base Excess Rahat Test VBG pH 7.34 POC VBG pCO2 39.9 L POC VBG pO2 34.2 VBG HCO3 20.7 L VBG O2 Sat (Monalisa) 52.2 L VBG Base Excess -4.2 L O2 Delivery Device Oxygen Flow Rate Sodium Potassium Chloride Carbon Dioxide Anion Gap BUN Creatinine Est GFR (CKD-EPI)AfAm Est GFR (CKD-EPI)NonAf POC Glucometer Random Glucose Lactic Acid Calcium Phosphorus Magnesium Total Bilirubin AST ALT Alkaline Phosphatase Ammonia Troponin I B-Natriuretic Peptide Total Protein Albumin TSH Free T4 Urine Color Urine Appearance Urine pH Ur Specific [place] Urine Protein Urine Glucose (UA) Urine Ketones Urine Blood Urine Nitrite Urine Bilirubin Urine Urobilinogen Ur Leukocyte Esterase Urine WBC (Auto) Urine RBC (Auto) Urine Casts (Auto) U Epithel Cells (Auto) Urine Bacteria (Auto) Stool Occult Blood Negative Blood Type A POSITIVE Antibody Screen Negative 07/30/18 07/30/18 07/30/18 05:45 07:03 07:32 WBC RBC Hgb Hct MCV MCH MCHC RDW Plt Count MPV Absolute Neuts (auto) Neutrophils % Lymphocytes % Monocytes % Eosinophils % Basophils % Nucleated RBC % PT with INR INR PTT (Actin FS) Puncture Site ABG pH ABG pCO2 at Pt Temp ABG pO2 at Pt Temp ABG HCO3 ABG O2 Sat (Measured) ABG O2 Content ABG Base Excess Rahat Test VBG pH POC VBG pCO2 POC VBG pO2 VBG HCO3 VBG O2 Sat (Monalisa) VBG Base Excess O2 Delivery Device Oxygen Flow Rate Sodium 135 L Potassium 5.3 H Chloride 104 Carbon Dioxide 19 L Anion Gap 11 BUN 140.3 H* Creatinine 3.1 H Est GFR (CKD-EPI)AfAm 21.48 Est GFR (CKD-EPI)NonAf 18.53 POC Glucometer 108 Random Glucose 72 L Lactic Acid Calcium 7.5 L Phosphorus Magnesium Total Bilirubin AST ALT Alkaline Phosphatase Ammonia Troponin I B-Natriuretic Peptide Total Protein Albumin TSH Free T4 Urine Color Dk yellow Urine Appearance Cloudy Urine pH 5.0 Ur Specific [place] 1.017 Urine Protein Negative Urine Glucose (UA) Negative Urine Ketones Negative Urine Blood 1+ H Urine Nitrite Positive H Urine Bilirubin 1+ H Urine Urobilinogen 1.0 Ur Leukocyte Esterase 1+ H Urine WBC (Auto) 1 Urine RBC (Auto) 23.4 Urine Casts (Auto) 7 U Epithel Cells (Auto) 1.1 Urine Bacteria (Auto) 986.0 Stool Occult Blood Blood Type Antibody Screen 07/30/18 07/30/18 07/30/18 07:59 08:29 08:29 WBC 4.9 RBC 2.91 L Hgb 8.4 L Hct 26.8 L MCV 92.0 MCH 28.9 MCHC 31.4 L RDW 18.3 H Plt Count 172 MPV 8.2 Absolute Neuts (auto) 4.0 Neutrophils % 82.6 Lymphocytes % 10.8 Monocytes % 6.2 Eosinophils % 0.3 Basophils % 0.1 Nucleated RBC % 0 PT with INR INR PTT (Actin FS) Puncture Site ABG pH ABG pCO2 at Pt Temp ABG pO2 at Pt Temp ABG HCO3 ABG O2 Sat (Measured) ABG O2 Content ABG Base Excess Rahat Test VBG pH POC VBG pCO2 POC VBG pO2 VBG HCO3 VBG O2 Sat (Monalisa) VBG Base Excess O2 Delivery Device Oxygen Flow Rate Sodium Potassium Chloride Carbon Dioxide Anion Gap BUN Creatinine Est GFR (CKD-EPI)AfAm Est GFR (CKD-EPI)NonAf POC Glucometer Random Glucose Lactic Acid 3.1 H* Calcium Phosphorus Magnesium Total Bilirubin AST ALT Alkaline Phosphatase Ammonia Troponin I B-Natriuretic Peptide Total Protein Albumin TSH Free T4 Urine Color Urine Appearance Urine pH Ur Specific [place] Urine Protein Urine Glucose (UA) Urine Ketones Urine Blood Urine Nitrite Urine Bilirubin Urine Urobilinogen Ur Leukocyte Esterase Urine WBC (Auto) Urine RBC (Auto) Urine Casts (Auto) U Epithel Cells (Auto) Urine Bacteria (Auto) Stool Occult Blood Positive Blood Type Antibody Screen 07/30/18 07/30/18 10:30 10:46 WBC RBC Hgb Hct MCV MCH MCHC RDW Plt Count MPV Absolute Neuts (auto) Neutrophils % Lymphocytes % Monocytes % Eosinophils % Basophils % Nucleated RBC % PT with INR INR PTT (Actin FS) Puncture Site Left radial ABG pH 7.34 L ABG pCO2 at Pt Temp 37.7 ABG pO2 at Pt Temp 160 H ABG HCO3 19.6 L ABG O2 Sat (Measured) 99.7 H ABG O2 Content 13.2 L ABG Base Excess -5.1 L Rahat Test Positive VBG pH POC VBG pCO2 POC VBG pO2 VBG HCO3 VBG O2 Sat (Monalisa) VBG Base Excess O2 Delivery Device N/c Oxygen Flow Rate 15l Sodium Potassium Chloride Carbon Dioxide Anion Gap BUN Creatinine Est GFR (CKD-EPI)AfAm Est GFR (CKD-EPI)NonAf POC Glucometer Random Glucose Lactic Acid Calcium Phosphorus Magnesium Total Bilirubin AST ALT Alkaline Phosphatase Ammonia 37.30 H Troponin I B-Natriuretic Peptide Total Protein Albumin TSH Free T4 Urine Color Urine Appearance Urine pH Ur Specific [place] Urine Protein Urine Glucose (UA) Urine Ketones Urine Blood Urine Nitrite Urine Bilirubin Urine Urobilinogen Ur Leukocyte Esterase Urine WBC (Auto) Urine RBC (Auto) Urine Casts (Auto) U Epithel Cells (Auto) Urine Bacteria (Auto) Stool Occult Blood Blood Type Antibody Screen Active Medications Generic Name Dose Route Start Last Admin Trade Name Freq PRN Reason Stop Dose Admin Albumin Human 12.5 gm 07/30/18 11:30 Albumin Human 25% IVPB 07/30/18 13:01 Q30M CLIVE Budesonide/Formoterol Fumarate 2 puff 07/30/18 10:00 07/30/18 12:02 Symbicort 160/4.5mcg - IH Not Given BID CLIVE Chlorhexidine Gluconate 1 applic 07/30/18 22:00 Hibiclens For Decolonization - TP HS CLIVE Dopamine HCl/Dextrose 400,000 mcg in 250 mls @ 17.86 mls/hr 07/30/18 10:00 10:00 Dopamine 400 Mg/D5w - IVPB 5 mcg/kg/min TITR CLIVE 17.86 mls/hr Administration Protocol 5 MCG/KG/MIN Sodium Chloride 250 mls @ 3,000 mls/hr 07/30/18 11:22 Normal Saline - IV 07/31/18 11:22 PRN PRN Hypotension during Dialysis Midazolam HCl 100 mg in 100 mls @ 1 mls/hr 07/30/18 11:45 Midazolam 100mg/100ml-0.9%Nacl IVPB TITR CLIVE Protocol 1 MG/HR Meropenem 500 mg/ Dextrose 100 mls @ 200 mls/hr 07/30/18 12:00 IVPB BID CLIVE Vancomycin HCl 1,000 mg in 250 mls @ 166.667 mls/hr 07/30/18 14:45 Vancomycin (Pre-Docked) IVPB 07/30/18 16:14 ONCE ONE Protocol Insulin Aspart 1 vial 07/30/18 08:30 07/30/18 08:30 Novolog Vial Sliding Scale - SQ Not Given Q6H [facility] Protocol Mupirocin 1 applic 07/30/18 10:00 07/30/18 12:03 Bactroban Ointment (For Decolonization) - NS 08/04/18 09:59 Not Given BID CLIVE Pantoprazole Sodium 40 mg 07/30/18 10:00 07/30/18 12:02 Protonix Iv IVPUSH 40 mg BID CLIVE Administration ASSESSMENT/PLAN: This is a 77 yo M with PMH of HTN, HLD, HFREF s/p defibrillator, CKD stake 4, CAD+ [place] s/p pci stent, gout, DM, COPD, who presented due to hypotension, hypothermia, possible GI bleeding, admitted to ICU and intubated. Septic shock ELLIOTT on CKD ischemic toe DIC HTN HF DMII COPD Plan: We recommend to monitor for overt bleeding, f/u GI recommendations and if clear , then may consider Heparin drip without bolus for his left foot. Please consider vascular surgery consultation. Discussed with Dr Shelton. Dispo: We will continue to follow the patient. Thank you for this consultative opportunity. Problem List - Problems (1) ELLIOTT (acute kidney injury) Code(s): N17.9 - ACUTE KIDNEY FAILURE, UNSPECIFIED (2) Altered mental status Code(s): R41.82 - ALTERED MENTAL STATUS, UNSPECIFIED Qualifiers: Altered mental status type: unspecified Qualified Code(s): R41.82 - Altered mental status, unspecified (3) GI bleed Code(s): K92.2 - GASTROINTESTINAL HEMORRHAGE, UNSPECIFIED (4) Hypotension Code(s): I95.9 - HYPOTENSION, UNSPECIFIED Qualifiers: Hypotension type: unspecified hypotension type Qualified Code(s): I95.9 - Hypotension, unspecified (5) Embolic disease of toe Code(s): I74.3 - EMBOLISM AND THROMBOSIS OF ARTERIES OF THE LOWER EXTREMITIES Visit type - Emergency Visit Emergency Visit: Yes ED Registration Date: 07/30/18 Care time: The patient presented to the Emergency Department on the above date and was hospitalized for further evaluation of their emergent condition. - New Patient This patient is new to me today: No - Critical Care Critical Care patient: Yes Total Critical Care Time (in minutes): 40 Critical Care Statement: The care of this patient involved high complexity decision making to prevent further life threatening deterioration of the patient 's condition and/or to evaluate & treat vital organ system(s) failure or risk of failure.
[2018-07-30] MEDS ORDERED: LEVOTHYROXINE SODIUM 100 MCG VIAL IM SCH (16:15)
[2018-07-30] MEDS ORDERED: PT OWN MED DRAWER 7, Y5N ONE ×2 (16:45→21:14)
[2018-07-30] MEDS: HYDROCORTISONE SOD SUCCINATE 100 MG/2 ML VIAL IVPB SCH (16:47)
[2018-07-30 16:58] LABS: ARTERIAL BLOOD GAS BASE EXCESS -5.8 meq/l (-2-2); ARTERIAL BLOOD GAS PCO2 28.3 mmHg (35-45); ARTERIAL BLOOD GAS PO2 316 mmHg (80-105); ARTERIAL BLOOD GAS pH 7.41 (7.35-7.45)
[2018-07-30] MEDS ORDERED: SODIUM CHLORIDE 250 ML IV PRN ×2 (16:59→22:47)
[2018-07-30 17:02] LABS: ALLENS TEST POSITIVE
--- NOTE | 2018-07-30 18:10 | CON.CARD ---
Consult Consult Specialty:: cardiollogy Reason for Consultation:: shortness of breath; bipedal edema; altered mental status - History of Present Illness Chief Complaint: Pt intubated; unresponsive. 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 He was discharged on 07/27 to longterm but was sent back to ED today as pt was found to be hypotensive and was noted to have blood in his stool. Pt now is lethargic appearing, pale, hypotensive. Pt required repeated prompting to answer questions, but barely mumbles his answers. - History Source History Provided By: Patient, Family Member, Medical Record Limitations to Obtaining History: Unresponsive - Past Medical History FILBERT GROWER: Yes: Dementia Cardio/Vascular: Yes: CAD, CHF (severe global hypokinesis), HTN, Hyperlipdemia, VA ("several years ago"), Pulmonary Hypertension, Other (defibrillator,s/p cardiac stent at [facility]) Pulmonary: Yes: COPD ("emphysema", per pt's daughter (Yeimi)) Gastrointestinal: Yes: Diverticulosis, Other (colon adenoma removed 02/19/16) Hepatobiliary: Yes: Cholelithiasis (s/p lap choly) Renal/: Yes: Renal Failure (chronic), Other (renal cysts) Psych: Yes: Anxiety Rheumatology: Yes: Gout Endocrine: Yes: Diabetes Mellitus - Past Surgical History Past Surgical History: Yes: AICD, Cholecystectomy, Colonoscopy - Alcohol/Substance Use Hx Alcohol Use: Yes (quit several years ago) History of Substance Use: reports: None - Smoking History Smoking history: Former smoker Have you smoked in the past 12 months: No Aproximately how many cigarettes per day: 10 If you are a former smoker, when did you quit?: many years ago - Social History Usual Living Arrangement: Residential ADL: Independent 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 History of Recent Travel: No Home Medications - Allergies Allergies/Adverse Reactions: Allergies Allergy/AdvReac Type Severity Reaction Status Date / Time No Known Drug Allergies Allergy Verified 07/30/18 04:28 heparin AdvReac Severe bleeding Verified 07/30/18 04:28 - Home Medications Home Medications: Ambulatory Orders Aspirin [ASA -] 81 mg PO DAILY 01/02/17 Cholecalciferol (Vitamin D3) [Vitamin D -] 5,000 unit PO WEEKLY 01/02/17 Febuxostat [Uloric] 40 mg PO DAILY 01/02/17 Gabapentin 300 mg PO DAILY 01/02/17 Glimepiride [Amaryl] 2 mg PO DAILY 01/02/17 Budesonide/Formeterol Fumarate [SYMBICORT 160/4.5mcg -] 2 puff IH BID #1 inhaler 06/21/18 Atorvastatin Ca [Lipitor] 40 mg PO HS tablet 07/27/18 Carvedilol [Coreg -] 3.125 mg PO DAILY tablet 07/27/18 Furosemide [Lasix -] 20 mg PO DAILY tablet 07/27/18 Olanzapine [Zyprexa -] 2.5 mg PO HS tablet 07/27/18 Apixaban [Eliquis -] 2.5 mg PO Q24H 07/30/18 Family Disease History - Family Disease History Family Disease History: Diabetes: Mother ( age 87), Heart Disease: Father ( lived in his 90s) Review of Systems - Review of Systems Constitutional: reports: Loss of Appetite, Weakness Eyes: reports: No Symptoms HENT: reports: Other Neck: reports: Decreased ROM Respiratory: reports: SOB Gastrointestinal: reports: Rectal Bleeding Genitourinary: reports: Testicular Swelling Musculoskeletal: reports: Muscle Weakness Integumentary: reports: Bruising, Wound Neurological: reports: Confusion, Weakness Hematology/Lymphatic: reports: Excessive Bleeding Psychiatric: reports: Other (?dementia) - Risk Factors Known Risk Factors: Yes: Age, Gender, Physical Inactivity, Prior VA /Emb Stroke , Race Vital Signs: Vital Signs Temperature 93.6 F L 07/30/18 10:00 Pulse Rate 51 L 07/30/18 09:00 Respiratory Rate 24 H 07/30/18 16:19 Blood Pressure 100/76 07/30/18 11:00 O2 Sat by Pulse Oximetry (%) 100 07/30/18 09:00 Abnormal Lab Results 07/30/18 07/30/18 07/30/18 05:05 05:05 05:05 RBC 3.36 L Hgb 9.8 L Hct 30.7 L MCHC 31.9 L RDW 18.0 H PT with INR 21.90 H INR 1.84 H PTT (Actin FS) 38.6 H ABG pH ABG pCO2 at Pt Temp ABG pO2 at Pt Temp ABG HCO3 ABG O2 Sat (Measured) ABG O2 Content ABG Base Excess POC VBG pCO2 VBG HCO3 VBG O2 Sat (Monalisa) VBG Base Excess Sodium 133 L Potassium 6.0 H Carbon Dioxide BUN 135.7 H* Creatinine 3.2 H Random Glucose 124 H Lactic Acid Calcium 7.7 L Phosphorus Magnesium Total Bilirubin 2.6 H Alkaline Phosphatase 118 H Ammonia B-Natriuretic Peptide Total Protein 5.8 L Albumin 2.1 L TSH Free T4 Urine Blood Urine Nitrite Urine Bilirubin Ur Leukocyte Esterase 07/30/18 07/30/18 07/30/18 05:05 05:10 05:45 RBC Hgb Hct MCHC RDW PT with INR INR PTT (Actin FS) ABG pH ABG pCO2 at Pt Temp ABG pO2 at Pt Temp ABG HCO3 ABG O2 Sat (Measured) ABG O2 Content ABG Base Excess POC VBG pCO2 39.9 L VBG HCO3 20.7 L VBG O2 Sat (Monalisa) 52.2 L VBG Base Excess -4.2 L Sodium Potassium Carbon Dioxide BUN Creatinine Random Glucose Lactic Acid Calcium Phosphorus 5.7 H Magnesium 3.0 H Total Bilirubin Alkaline Phosphatase Ammonia B-Natriuretic Peptide 35583.6 H Total Protein Albumin TSH 9.42 H D Free T4 1.24 H Urine Blood 1+ H Urine Nitrite Positive H Urine Bilirubin 1+ H Ur Leukocyte Esterase 1+ H 07/30/18 07/30/18 07/30/18 07:03 08:29 08:29 RBC 2.91 L Hgb 8.4 L Hct 26.8 L MCHC 31.4 L RDW 18.3 H PT with INR INR PTT (Actin FS) ABG pH ABG pCO2 at Pt Temp ABG pO2 at Pt Temp ABG HCO3 ABG O2 Sat (Measured) ABG O2 Content ABG Base Excess POC VBG pCO2 VBG HCO3 VBG O2 Sat (Monalisa) VBG Base Excess Sodium 135 L Potassium 5.3 H Carbon Dioxide 19 L BUN 140.3 H* Creatinine 3.1 H Random Glucose 72 L Lactic Acid 3.1 H* Calcium 7.5 L Phosphorus Magnesium Total Bilirubin Alkaline Phosphatase Ammonia B-Natriuretic Peptide Total Protein Albumin TSH Free T4 Urine Blood Urine Nitrite Urine Bilirubin Ur Leukocyte Esterase 07/30/18 07/30/18 07/30/18 10:30 10:46 16:35 RBC Hgb Hct MCHC RDW PT with INR INR PTT (Actin FS) ABG pH 7.34 L ABG pCO2 at Pt Temp 28.3 L ABG pO2 at Pt Temp 160 H 316 H ABG HCO3 19.6 L 17.5 L ABG O2 Sat (Measured) 99.7 H 100.0 H ABG O2 Content 13.2 L 14.3 L ABG Base Excess -5.1 L -5.8 L POC VBG pCO2 VBG HCO3 VBG O2 Sat (Monalisa) VBG Base Excess Sodium Potassium Carbon Dioxide BUN Creatinine Random Glucose Lactic Acid Calcium Phosphorus Magnesium Total Bilirubin Alkaline Phosphatase Ammonia 37.30 H B-Natriuretic Peptide Total Protein Albumin TSH Free T4 Urine Blood Urine Nitrite Urine Bilirubin Ur Leukocyte Esterase 07/30/18 07/30/18 07/31/18 18:30 18:30 00:01 RBC 3.54 L Hgb 10.2 L Hct 32.8 L D MCHC 31.2 L RDW 18.4 H PT with INR INR PTT (Actin FS) ABG pH ABG pCO2 at Pt Temp ABG pO2 at Pt Temp ABG HCO3 ABG O2 Sat (Measured) ABG O2 Content ABG Base Excess POC VBG pCO2 VBG HCO3 VBG O2 Sat (Monalisa) VBG Base Excess Sodium 132 L 131 L Potassium 6.4 H* 5.8 H Carbon Dioxide BUN 140.6 H* 115.4 H* Creatinine 3.4 H 3.0 H Random Glucose 134 H Lactic Acid Calcium 7.4 L 8.0 L Phosphorus Magnesium Total Bilirubin 2.9 H Alkaline Phosphatase 122 H Ammonia B-Natriuretic Peptide Total Protein 5.9 L Albumin 2.1 L TSH Free T4 Urine Blood Urine Nitrite Urine Bilirubin Ur Leukocyte Esterase Constitutional: Yes: Moderate Distress Eyes: Yes: Tearing Neck: Yes: Decreased ROM, Other (intubated) Respiratory: Yes: Diminished, Intubated, Mechanically Ventilated Gastrointestinal: Yes: Rectal Bleeding Renal/: Yes: Scrotal Edema JVD: Yes Carotid Bruit: No PMI: Displaced Heart Sounds: Yes: S1 (split), Split S2 Murmur: Yes: Systolic Murmur, Grade 1 Musculoskeletal: Yes: Muscle Weakness Extremities: Yes: Cool Edema: Yes Peripheral Pulses WNL: No Peripheral Pulses: 1+ Left Doralis Pedis, 1+ Right Dorsalis Pedis Integumentary: Yes: Pressure Ulcer Neurological: Yes: Confusion, Lethargy, Weakness Psychiatric: Yes: Other - Other Data Labs, Other Data: CBC, BMP 07/30/18 08:29 07/30/18 07:03 INR, PTT INR 1.84 (0.83-1.09) H 07/30/18 05:05 Troponin, BNP 07/30/18 07/30/18 05:05 05:05 Troponin I 0.03 B-Natriuretic Peptide 53180.6 H Troponin, BNP 07/30/18 07/30/18 05:05 05:05 Troponin I 0.03 B-Natriuretic Peptide 04152.6 H Abnormal Lab Results 07/30/18 07/30/18 07/30/18 05:05 05:05 05:05 RBC 3.36 L Hgb 9.8 L Hct 30.7 L MCHC 31.9 L RDW 18.0 H PT with INR 21.90 H INR 1.84 H PTT (Actin FS) 38.6 H ABG pH ABG pCO2 at Pt Temp ABG pO2 at Pt Temp ABG HCO3 ABG O2 Sat (Measured) ABG O2 Content ABG Base Excess POC VBG pCO2 VBG HCO3 VBG O2 Sat (Monalisa) VBG Base Excess Sodium 133 L Potassium 6.0 H Carbon Dioxide BUN 135.7 H* Creatinine 3.2 H Random Glucose 124 H Lactic Acid Calcium 7.7 L Phosphorus Magnesium Total Bilirubin 2.6 H Alkaline Phosphatase 118 H Ammonia B-Natriuretic Peptide Total Protein 5.8 L Albumin 2.1 L TSH Free T4 Urine Blood Urine Nitrite Urine Bilirubin Ur Leukocyte Esterase 07/30/18 07/30/18 07/30/18 05:05 05:10 05:45 RBC Hgb Hct MCHC RDW PT with INR INR PTT (Actin FS) ABG pH ABG pCO2 at Pt Temp ABG pO2 at Pt Temp ABG HCO3 ABG O2 Sat (Measured) ABG O2 Content ABG Base Excess POC VBG pCO2 39.9 L VBG HCO3 20.7 L VBG O2 Sat (Monalisa) 52.2 L VBG Base Excess -4.2 L Sodium Potassium Carbon Dioxide BUN Creatinine Random Glucose Lactic Acid Calcium Phosphorus 5.7 H Magnesium 3.0 H Total Bilirubin Alkaline Phosphatase Ammonia B-Natriuretic Peptide 15072.6 H Total Protein Albumin TSH 9.42 H D Free T4 1.24 H Urine Blood 1+ H Urine Nitrite Positive H Urine Bilirubin 1+ H Ur Leukocyte Esterase 1+ H 07/30/18 07/30/18 07/30/18 07:03 08:29 08:29 RBC 2.91 L Hgb 8.4 L Hct 26.8 L MCHC 31.4 L RDW 18.3 H PT with INR INR PTT (Actin FS) ABG pH ABG pCO2 at Pt Temp ABG pO2 at Pt Temp ABG HCO3 ABG O2 Sat (Measured) ABG O2 Content ABG Base Excess POC VBG pCO2 VBG HCO3 VBG O2 Sat (Monalisa) VBG Base Excess Sodium 135 L Potassium 5.3 H Carbon Dioxide 19 L BUN 140.3 H* Creatinine 3.1 H Random Glucose 72 L Lactic Acid 3.1 H* Calcium 7.5 L Phosphorus Magnesium Total Bilirubin Alkaline Phosphatase Ammonia B-Natriuretic Peptide Total Protein Albumin TSH Free T4 Urine Blood Urine Nitrite Urine Bilirubin Ur Leukocyte Esterase 07/30/18 07/30/18 07/30/18 10:30 10:46 16:35 RBC Hgb Hct MCHC RDW PT with INR INR PTT (Actin FS) ABG pH 7.34 L ABG pCO2 at Pt Temp 28.3 L ABG pO2 at Pt Temp 160 H 316 H ABG HCO3 19.6 L 17.5 L ABG O2 Sat (Measured) 99.7 H 100.0 H ABG O2 Content 13.2 L 14.3 L ABG Base Excess -5.1 L -5.8 L POC VBG pCO2 VBG HCO3 VBG O2 Sat (Monalisa) VBG Base Excess Sodium Potassium Carbon Dioxide BUN Creatinine Random Glucose Lactic Acid Calcium Phosphorus Magnesium Total Bilirubin Alkaline Phosphatase Ammonia 37.30 H B-Natriuretic Peptide Total Protein Albumin TSH Free T4 Urine Blood Urine Nitrite Urine Bilirubin Ur Leukocyte Esterase 07/30/18 07/30/18 07/31/18 18:30 18:30 00:01 RBC 3.54 L Hgb 10.2 L Hct 32.8 L D MCHC 31.2 L RDW 18.4 H PT with INR INR PTT (Actin FS) ABG pH ABG pCO2 at Pt Temp ABG pO2 at Pt Temp ABG HCO3 ABG O2 Sat (Measured) ABG O2 Content ABG Base Excess POC VBG pCO2 VBG HCO3 VBG O2 Sat (Monalisa) VBG Base Excess Sodium 132 L 131 L Potassium 6.4 H* 5.8 H Carbon Dioxide BUN 140.6 H* 115.4 H* Creatinine 3.4 H 3.0 H Random Glucose 134 H Lactic Acid Calcium 7.4 L 8.0 L Phosphorus Magnesium Total Bilirubin 2.9 H Alkaline Phosphatase 122 H Ammonia B-Natriuretic Peptide Total Protein 5.9 L Albumin 2.1 L TSH Free T4 Urine Blood Urine Nitrite Urine Bilirubin Ur Leukocyte Esterase Echo: Report Reviewed Ejection Fraction %: LVEF < 40 % Imaging - Results Chest X-ray: Image Reviewed (improving congestion) EKG: Image Reviewed (AV paced rhythm) Problem List - Problems (1) ELLIOTT (acute kidney injury) Code(s): N17.9 - ACUTE KIDNEY FAILURE, UNSPECIFIED (2) Altered mental status Code(s): R41.82 - ALTERED MENTAL STATUS, UNSPECIFIED Qualifiers: Altered mental status type: unspecified Qualified Code(s): R41.82 - Altered mental status, unspecified (3) GI bleed Assessment/Plan: f/u with GI, hematology. Code(s): K92.2 - GASTROINTESTINAL HEMORRHAGE, UNSPECIFIED (4) Hypotension Assessment/Plan: On dopamine (increased in anticipation of hemodialysis). F/u workup for blood in stool, anemia. r/o sepsis. F/u BUN/Cr, electrolytes, daily weight, Is and Os, fluid status post- hemodialysis. Code(s): I95.9 - HYPOTENSION, UNSPECIFIED Qualifiers: Hypotension type: unspecified hypotension type Qualified Code(s): I95.9 - Hypotension, unspecified (5) Systolic CHF Code(s): I50.20 - UNSPECIFIED SYSTOLIC (CONGESTIVE) HEART FAILURE Qualifiers: Heart failure chronicity: unspecified Qualified Code(s): I50.20 - Unspecified systolic (congestive) heart failure (6) History of heart artery stent Code(s): Z95.5 - PRESENCE OF CORONARY ANGIOPLASTY IMPLANT AND GRAFT (7) Hyperlipidemia Code(s): E78.5 - HYPERLIPIDEMIA, UNSPECIFIED (8) Hypervolemia Code(s): E87.70 - FLUID OVERLOAD, UNSPECIFIED Qualifiers: Hypervolemia type: unspecified Qualified Code(s): E87.70 - Fluid overload, unspecified (9) ICD (implantable cardioverter-defibrillator) in place Code(s): Z95.810 - PRESENCE OF AUTOMATIC (IMPLANTABLE) CARDIAC DEFIBRILLATOR (10) Renal dysfunction Assessment/Plan: for hemodialysis. Code(s): N28.9 - DISORDER OF KIDNEY AND URETER, UNSPECIFIED (11) Severe left ventricular systolic dysfunction Assessment/Plan: carvedilol held due to hypotension. Code(s): I51.9 - HEART DISEASE, UNSPECIFIED (12) Weakness Code(s): R53.1 - WEAKNESS (13) Coronary arteriosclerosis Code(s): I25.10 - ATHSCL HEART DISEASE OF [place] CORONARY ARTERY W/O ANG PCTRS (14) Dementia Code(s): F03.90 - UNSPECIFIED DEMENTIA WITHOUT BEHAVIORAL DISTURBANCE (15) Hyperkalemia Assessment/Plan: f/u all electrolytes post-hemodialysis Code(s): E87.5 - HYPERKALEMIA Assessment/Plan CCU time spent: 75 minutes.
[2018-07-30] MEDS: ALBUMIN HUMAN 25% 12.5 GM/50 ML VIAL IVPB SCH ×4 (18:30→19:30)
[2018-07-30 19:46] LABS: ALBUMIN 2.1 g/dl (3.4-5.0); BILIRUBIN,TOTAL 2.9 mg/dL (0.2-1); CALCIUM 7.4 mg/dL (8.5-10.1); CREATININE 3.4 mg/dL (0.55-1.3); TOT PROT 5.9 g/dl (6.4-8.2)
[2018-07-30 19:49] LABS: BLOOD UREA NITROGEN 140.6 mg/dL (7-18); POTASSIUM 6.4 mmol/L (3.5-5.1)
--- NOTE | 2018-07-30 20:26 | PN ---
Teaching Attending Note Name of Resident: Bobbi Suarez ATTENDING PHYSICIAN STATEMENT I saw and evaluated the patient. I reviewed the resident's note and discussed the case with the resident. I agree with the resident's findings and plan as documented. ASSESSMENT AND PLAN: 77y black man with PM hx of htn, hld, chf / lv dysfunction, CKD stage 4, CAD s/ p stents, recent prolonged admission for altered mental status thought to be due to possible worsening dementia vs metabolic encephalopathy, also with painful cyanosis of left great toes, false + HIT ab with negative APRIL, negative LAC, was discharged on 07/27 to retirement but was sent back to the ED today as pt was found to be hypotensive and was noted to have blood in his stool. Pt here is lethargic appearing, pale, hypotensive. Now intubated/sedated, being dialyzed Presumed septic shock On vanco/meropenem Also r/o gi bleed Cyanotsis/pain Left foot toes ----thrombocytopenia--false + HIT ab/Negative APRIL Confirmatory APRIL negative LAC negative Was discharged on eliquis Eliquis on hold Depending on clinical course, when cleared by GI will consider heparin drip without bolus Will also check echo r/o endocarditis Vacular consult regaring cyanotic toes --previous arterial duplex --decreased monophasic flow in left post. tibial arrtery , otherwise no other significant occlusion will follow
[2018-07-30 21:35] LABS: HEMATOCRIT 32.8 % (35.4-49); HEMOGLOBIN 10.2 GM/dL (11.7-16.9); MCH 28.9 pg (25.7-33.7); MCHC 31.2 g/dl (32.0-35.9); MEAN CELL VOLUME 92.5 fl (80-96); MEAN PLT VOLUME 8.5 fl (7.5-11.1); PLATELET COUNT 249 K/MM3 (134-434); RBC 3.54 M/mm3 (4.00-5.60); RDW 18.4 % (11.9-15.9); WHITE BLOOD COUNT 8.3 K/mm3 (4.0-10.0)
[2018-07-30] MEDS ORDERED: CHLORHEXIDINE GLUCONATE 4% CLEANSER FOR DECOLONIZATION TP SCH (22:00)
[2018-07-31] MEDS: HYDROCORTISONE SOD SUCCINATE 100 MG/2 ML VIAL IVPB SCH (00:27)
[2018-07-31 00:53] LABS: POTASSIUM 5.8 mmol/L (3.5-5.1)
[2018-07-31 00:55] LABS: BLOOD UREA NITROGEN 115.4 mg/dL (7-18)
[2018-07-31] MEDS: INSULIN SLIDING SCALE (NOVOLOG) 1 VIAL SQ SCH ×2 (02:02→07:34)
--- NOTE | 2018-07-31 02:16 | PN ---
Progress Note (short form) - Note Progress Note: Informed of result from Imaging showroom sales consultant of diminished blood flow to bilateral testicles. Discussed with Dr. Alegre; finding likely secondary to patient's underlying edema; patient to be evaluated in AM.
[2018-07-31 06:33] LABS: HEMATOCRIT 29.3 % (35.4-49); HEMOGLOBIN 9.3 GM/dL (11.7-16.9); LYMPH % 7.6 % (8-40); MCH 29.1 pg (25.7-33.7); MCHC 31.8 g/dl (32.0-35.9); MEAN CELL VOLUME 91.3 fl (80-96); MONO % 2.3 % (3.8-10.2); NEUT % 90.1 % (42.8-82.8); PLATELET COUNT 239 K/MM3 (134-434); RBC 3.21 M/mm3 (4.00-5.60); RDW 18.9 % (11.9-15.9); WHITE BLOOD COUNT 7.6 K/mm3 (4.0-10.0)
[2018-07-31 06:41] LABS: INR 1.76 (0.83-1.09); PROTHROMBIN TIME (PATIENT) 20.9 SEC (9.7-13.0)
[2018-07-31 07:04] LABS: ALBUMIN 2.7 g/dl (3.4-5.0); BILIRUBIN,TOTAL 3.7 mg/dL (0.2-1); CALCIUM 7.8 mg/dL (8.5-10.1); CREATININE 3.2 mg/dL (0.55-1.3); MAGNESIUM 2.8 mg/dL (1.8-2.4); PHOSPHOROUS 6.1 mg/dL (2.5-4.9); TOT PROT 6.1 g/dl (6.4-8.2)
[2018-07-31 07:13] LABS: POTASSIUM 6.1 mmol/L (3.5-5.1)
[2018-07-31 07:21] VITALS: BP 80/66; PULSE 105; TEMP 97
[2018-07-31] MEDS ORDERED: EPOETIN ALFA 20,000 UNIT/1 ML VIAL IVPUSH ONE (08:00)
--- NOTE | 2018-07-31 08:41 | PN ---
Progress Note (short form) - Note Progress Note: Renal follow up for ELLIOTT Pt seen and examined in the ICU BP was low this am and dopamine was titrated BP continued to drop and code team was called s/p dialysis yesterday No melena overnight Vital Signs Temperature 97.0 F L 07/31/18 07:20 Pulse Rate 105 H 07/31/18 07:20 Respiratory Rate 22 H 07/31/18 07:20 Blood Pressure 80/66 L 07/31/18 07:20 O2 Sat by Pulse Oximetry (%) 92 L 07/31/18 06:47 Intake & Output 07/28/18 07/29/18 07/30/18 07/31/18 23:59 23:59 23:59 23:59 Intake Total 250.9 266 Output Total 1200 100 Balance -949.1 166 Weight 95.254 kg 91.535 kg orally intubated sedated tachycardic Course BS ++ edema in LE CBC, BMP 07/31/18 05:30 07/31/18 05:30 Current Medications Budesonide/Formoterol Fumarate (Symbicort 160/4.5mcg -) 2 puff IH BID [facility] Last Admin: 07/30/18 21:54 Dose: Not Given Chlorhexidine Gluconate (Hibiclens For Decolonization -) 1 applic TP HS [facility] Last Admin: 07/30/18 21:56 Dose: 1 applic Epoetin Hansel (Procrit -) 20,000 unit IVPUSH ONCE ONE Stop: 07/31/18 08:01 Hydrocortisone Sodium Succinate (Solu-Cortef -) 100 mg IVPB Q8H [facility] Last Admin: 07/31/18 00:27 Dose: 100 mg Dopamine HCl/Dextrose (Dopamine 400 Mg/D5w -) 400,000 mcg in 250 mls @ 17.86 mls/hr IVPB TITR [facility]; Protocol Last Titration: 07/30/18 19:00 Dose: 10 mcg/kg/min, 35.72 mls/hr Midazolam HCl (Midazolam 100mg/100ml-0.9%Nacl) 100 mg in 100 mls @ 1 mls/hr IVPB TITR [facility]; Protocol Last Admin: 07/30/18 15:00 Dose: 1 mg/hr, 1 mls/hr Meropenem 500 mg/ Dextrose 100 mls @ 200 mls/hr IVPB BID [facility] Last Admin: 07/30/18 21:53 Dose: 200 mls/hr Sodium Chloride (Normal Saline -) 250 mls @ 3,000 mls/hr IV PRN PRN PRN Reason: Hypotension during Dialysis Stop: 07/31/18 22:47 Insulin Aspart (Novolog Vial Sliding Scale -) 1 vial SQ Q6H [facility]; Protocol Last Admin: 07/31/18 07:34 Dose: Not Given Levothyroxine Sodium (Synthroid Injection -) 25 mcg IM DAILY [facility] Mupirocin (Bactroban Ointment (For Decolonization) -) 1 applic NS BID [facility] Stop: 08/04/18 09:59 Last Admin: 07/30/18 23:06 Dose: Not Given Pantoprazole Sodium (Protonix Iv) 40 mg IVPUSH BID [facility] Last Admin: 07/30/18 21:53 Dose: 40 mg 77 year old male with hx of CKD stage 3 (baseline Cr ~2), Cardiomyopathy with low LVEF, CAD, Hypertension, Hyperlipidemia with recent admission for AMS during which time he was diagnosed with DIC and ELLIOTT (volume related vs. DIC) now presents from [place] with hypotension, suspected GI bleed and worsening renal function. #Hypotension/Shock r/o Septic shock vs. cardiogenic vs. hypvolemic from blood loss #ELLIOTT on CKD with very high BUN #Hyperkalemia in setting of ELLIOTT #Fluid overload #Cardiomyopathy #Lactic acidosis/Metabolic acidosis #Acute on chronic anemia tolerated dialysis yesterday, was planned for additional dialysis today will follow status s/p code if stabilized will plan HD today can give kayexalate per rectum for additional aid in potassium management prognosis is poor Mikhail Ling DO
--- NOTE | 2018-07-31 10:31 | PN ---
Teaching Attending Note Name of Resident: Ricardo Andres ATTENDING PHYSICIAN STATEMENT I saw and evaluated the patient. I reviewed the resident's note and discussed the case with the resident. I agree with the resident's findings and plan as documented. SUBJECTIVE: Patient seen and examined in the ICU. Called by RN a the patient with severe bradycardia that progressed to asystole. Full ACLS protocol performed with ROSC after about 7 minutes. Patient noted to go into PEA about 4 minutes later. Full ACLS protocol performed again and there was perfusing rhythm after 11 minutes. Patient pronounced at 9 AM. Intake & Output 07/28/18 07/29/18 07/30/18 07/31/18 23:59 23:59 23:59 23:59 Intake Total 250.9 266 Output Total 1200 100 Balance -949.1 166 Weight 210 lb 201 lb 12.8 oz Last Vital Signs Temp Pulse Resp BP Pulse Ox 97.0 F L 105 H 22 H 80/66 L 92 L 07/31/18 07:20 07/31/18 07:20 07/31/18 07:20 07/31/18 07:20 07/31/18 06:47 Active Medications Budesonide/Formoterol Fumarate (Symbicort 160/4.5mcg -) 2 puff IH BID [facility]IVE Last Admin: 07/30/18 21:54 Dose: Not Given Chlorhexidine Gluconate (Hibiclens For Decolonization -) 1 applic TP HS CLIVE Last Admin: 07/30/18 21:56 Dose: 1 applic Epoetin Hansel (Procrit -) 20,000 unit IVPUSH ONCE ONE Stop: 07/31/18 08:01 Hydrocortisone Sodium Succinate (Solu-Cortef -) 100 mg IVPB Q8H [facility] Last Admin: 07/31/18 00:27 Dose: 100 mg Dopamine HCl/Dextrose (Dopamine 400 Mg/D5w -) 400,000 mcg in 250 mls @ 17.86 mls/hr IVPB TITR [facility]; Protocol Last Titration: 07/30/18 19:00 Dose: 10 mcg/kg/min, 35.72 mls/hr Midazolam HCl (Midazolam 100mg/100ml-0.9%Nacl) 100 mg in 100 mls @ 1 mls/hr IVPB TITR [facility]; Protocol Last Admin: 07/30/18 15:00 Dose: 1 mg/hr, 1 mls/hr Meropenem 500 mg/ Dextrose 100 mls @ 200 mls/hr IVPB BID [facility]IVE Last Admin: 07/30/18 21:53 Dose: 200 mls/hr Sodium Chloride (Normal Saline -) 250 mls @ 3,000 mls/hr IV PRN PRN PRN Reason: Hypotension during Dialysis Stop: 07/31/18 22:47 Insulin Aspart (Novolog Vial Sliding Scale -) 1 vial SQ Q6H [facility]; Protocol Last Admin: 07/31/18 07:34 Dose: Not Given Levothyroxine Sodium (Synthroid Injection -) 25 mcg IM DAILY [facility] Mupirocin (Bactroban Ointment (For Decolonization) -) 1 applic NS BID [facility] Stop: 08/04/18 09:59 Last Admin: 07/30/18 23:06 Dose: Not Given Pantoprazole Sodium (Protonix Iv) 40 mg IVPUSH BID [facility] Last Admin: 07/30/18 21:53 Dose: 40 mg GENERAL: Intubated, unresponsive EYES: PERRLA ENT: Dry mucus membranes LUNGS: diffuse bilateral crackles, coarse breath sounds, no wheezes HEART: Asystole ABDOMEN: Soft, hypoactive BS MUSCULOSKELETAL: No CVA Tenderness EXTREMITIES: 2+ pulses, no edema. NEUROLOGICAL: unresponsive Laboratory Results - last 24 hr 07/30/18 07/30/18 07/30/18 10:30 10:46 16:13 WBC RBC Hgb Hct MCV MCH MCHC RDW Plt Count MPV Absolute Neuts (auto) Neutrophils % Lymphocytes % Monocytes % Eosinophils % Basophils % Nucleated RBC % PT with INR INR Anticoagulation Therapy Puncture Site Left radial ABG pH 7.34 L ABG pCO2 at Pt Temp 37.7 ABG pO2 at Pt Temp 160 H ABG HCO3 19.6 L ABG O2 Sat (Measured) 99.7 H ABG O2 Content 13.2 L ABG Base Excess -5.1 L Rahat Test Positive O2 Delivery Device N/c Oxygen Flow Rate 15l Vent Mode Vent Rate Mechanical Rate PEEP Pressure Support Vent Sodium Potassium Chloride Carbon Dioxide Anion Gap BUN Creatinine Est GFR (CKD-EPI)AfAm Est GFR (CKD-EPI)NonAf POC Glucometer 93 Random Glucose Lactic Acid Calcium Phosphorus Magnesium Total Bilirubin AST ALT Alkaline Phosphatase Ammonia 37.30 H Creatine Kinase Troponin I Total Protein Albumin 07/30/18 07/30/18 07/30/18 16:35 18:30 18:30 WBC 8.3 RBC 3.54 L Hgb 10.2 L Hct 32.8 L D MCV 92.5 MCH 28.9 MCHC 31.2 L RDW 18.4 H Plt Count 249 D MPV 8.5 Absolute Neuts (auto) Neutrophils % Lymphocytes % Monocytes % Eosinophils % Basophils % Nucleated RBC % PT with INR INR Anticoagulation Therapy No Result Required. Puncture Site Right radial ABG pH 7.41 ABG pCO2 at Pt Temp 28.3 L ABG pO2 at Pt Temp 316 H ABG HCO3 17.5 L ABG O2 Sat (Measured) 100.0 H ABG O2 Content 14.3 L ABG Base Excess -5.8 L Rahat Test Positive O2 Delivery Device Vent Oxygen Flow Rate 100% Vent Mode A/c Vent Rate No Result Required. Mechanical Rate No Result Required. PEEP 7.0 Pressure Support Vent No Result Required. Sodium 132 L Potassium 6.4 H* Chloride 99 Carbon Dioxide 23 Anion Gap 10 BUN 140.6 H* Creatinine 3.4 H Est GFR (CKD-EPI)AfAm 19.21 Est GFR (CKD-EPI)NonAf 16.58 POC Glucometer Random Glucose 89 Lactic Acid Calcium 7.4 L Phosphorus Magnesium Total Bilirubin 2.9 H AST 31 ALT 34 Alkaline Phosphatase 122 H Ammonia Creatine Kinase 39 Troponin I 0.05 Total Protein 5.9 L Albumin 2.1 L 07/30/18 07/30/18 07/31/18 18:30 21:04 00:01 WBC RBC Hgb Hct MCV MCH MCHC RDW Plt Count MPV Absolute Neuts (auto) Neutrophils % Lymphocytes % Monocytes % Eosinophils % Basophils % Nucleated RBC % PT with INR INR Anticoagulation Therapy Puncture Site ABG pH ABG pCO2 at Pt Temp ABG pO2 at Pt Temp ABG HCO3 ABG O2 Sat (Measured) ABG O2 Content ABG Base Excess Rahat Test O2 Delivery Device Oxygen Flow Rate Vent Mode Vent Rate Mechanical Rate PEEP Pressure Support Vent Sodium 131 L Potassium 5.8 H Chloride 100 Carbon Dioxide 22 Anion Gap 9 BUN 115.4 H* Creatinine 3.0 H Est GFR (CKD-EPI)AfAm 22.35 Est GFR (CKD-EPI)NonAf 19.28 POC Glucometer 103 Random Glucose 134 H Lactic Acid 1.9 Calcium 8.0 L Phosphorus Magnesium Total Bilirubin AST ALT Alkaline Phosphatase Ammonia Creatine Kinase Troponin I Total Protein Albumin 07/31/18 07/31/18 07/31/18 02:00 05:30 05:30 WBC RBC Hgb Hct MCV MCH MCHC RDW Plt Count MPV Absolute Neuts (auto) Neutrophils % Lymphocytes % Monocytes % Eosinophils % Basophils % Nucleated RBC % PT with INR 20.90 H INR 1.76 H Anticoagulation Therapy Puncture Site ABG pH ABG pCO2 at Pt Temp ABG pO2 at Pt Temp ABG HCO3 ABG O2 Sat (Measured) ABG O2 Content ABG Base Excess Rahat Test O2 Delivery Device Oxygen Flow Rate Vent Mode Vent Rate Mechanical Rate PEEP Pressure Support Vent Sodium 130 L Potassium 6.1 H* Chloride 99 Carbon Dioxide 20 L Anion Gap 11 BUN 116.0 H* Creatinine 3.2 H Est GFR (CKD-EPI)AfAm 20.67 Est GFR (CKD-EPI)NonAf 17.84 POC Glucometer 125 Random Glucose 152 H Lactic Acid Calcium 7.8 L Phosphorus 6.1 H Magnesium 2.8 H Total Bilirubin 3.7 H AST 26 ALT 30 Alkaline Phosphatase 106 Ammonia Creatine Kinase Troponin I Total Protein 6.1 L Albumin 2.7 L 07/31/18 07/31/18 05:30 07:33 WBC 7.6 RBC 3.21 L Hgb 9.3 L Hct 29.3 L MCV 91.3 MCH 29.1 MCHC 31.8 L RDW 18.9 H Plt Count 239 MPV 8.0 Absolute Neuts (auto) 6.9 Neutrophils % 90.1 H Lymphocytes % 7.6 L D Monocytes % 2.3 L Eosinophils % 0.0 D Basophils % 0.0 Nucleated RBC % 0 PT with INR INR Anticoagulation Therapy Puncture Site ABG pH ABG pCO2 at Pt Temp ABG pO2 at Pt Temp ABG HCO3 ABG O2 Sat (Measured) ABG O2 Content ABG Base Excess Rahat Test O2 Delivery Device Oxygen Flow Rate Vent Mode Vent Rate Mechanical Rate PEEP Pressure Support Vent Sodium Potassium Chloride Carbon Dioxide Anion Gap BUN Creatinine Est GFR (CKD-EPI)AfAm Est GFR (CKD-EPI)NonAf POC Glucometer 148 Random Glucose Lactic Acid Calcium Phosphorus Magnesium Total Bilirubin AST ALT Alkaline Phosphatase Ammonia Creatine Kinase Troponin I Total Protein Albumin ASSESSMENT/PLAN: Cardio-Pulmonary arrest Acute Systolic CHF EF 15% R/O Septic Shock Suspected GI bleed AMS: (?) Toxic Metabolic Encephalopathy Hypertension Hyperlipidemia Severe LV dysfunction (EF 15%) Acute on Chronic kidney disease stage 4 CAD s/p stents AMI S/P defibrillator placement Gout Diabetes COPD (?) Myxedema Patient declared at 9 AM. Family at the bedside Dr Castellon Critical care time spent in reviewing chart, evaluating patient and formulating plan - 36 minutes.
--- NOTE | 2018-07-31 12:54 | EKG ---
Test Reason : Blood Pressure : / mmHG Vent. Rate : 099 BPM Atrial Rate : 099 BPM P-R Int : 164 ms QRS Dur : 184 ms QT Int : 422 ms P-R-T Axes : 057 -40 083 degrees QTc Int : 541 ms Atrial-sensed ventricular-paced rhythm WHEN COMPARED WITH ECG OF 30-JUL-2018 05:46, VENT. RATE HAS INCREASED BY 29 BPM Confirmed by JONO MORALES MD ([id number]) on 07/31/2018 12:54:27 PM Referred By: ALHAJI CASTILLO DR Confirmed By:JONO MORALES MD
[2018-08-01 07:11] LABS: HEP B CORE AB, TOT Positive (Negative)
--- NOTE | 2018-08-01 14:49 | DS ---
Physical Exam: Initial Vital Signs Temp Pulse Resp BP Pulse Ox 93.7 F L 72 20 72/52 L 98 07/30/18 05:36 07/30/18 05:36 07/30/18 05:36 07/30/18 05:36 07/30/18 05:36 Vital Signs Temperature 97.0 F L 07/31/18 07:20 Pulse Rate 105 H 07/31/18 07:20 Respiratory Rate 22 H 07/31/18 07:20 Blood Pressure 80/66 L 07/31/18 07:20 O2 Sat by Pulse Oximetry (%) 92 L 07/31/18 06:47 LABS Laboratory Results - last 24 hr 07/30/18 07/30/18 07/30/18 08:30 18:30 18:30 Total T3 73.00 Cortisol AM Sample 22.8 H Hep Bs Antigen Hep Bs Antibody Hep B Core Total Ab Hep C Ab Diagnostic HIV 1&2 Ag/Ab, 4th Gen Non reactive 07/30/18 18:30 Total T3 Cortisol AM Sample Hep Bs Antigen Negative Hep Bs Antibody Reactive Hep B Core Total Ab Positive H Hep C Ab Diagnostic 0.1 HIV 1&2 Ag/Ab, 4th Gen CBCD WBC 7.6 K/mm3 (4.0-10.0) 07/31/18 05:30 RBC 3.21 M/mm3 (4.00-5.60) L 07/31/18 05:30 Hgb 9.3 GM/dL (11.7-16.9) L 07/31/18 05:30 Hct 29.3 % (35.4-49) L 07/31/18 05:30 MCV 91.3 fl (80-96) 07/31/18 05:30 MCHC 31.8 g/dl (32.0-35.9) L 07/31/18 05:30 RDW 18.9 % (11.9-15.9) H 07/31/18 05:30 Plt Count 239 K/MM3 (134-434) 07/31/18 05:30 MPV 8.0 fl (7.5-11.1) 07/31/18 05:30 CMP Sodium 130 mmol/L (136-145) L 07/31/18 05:30 Potassium 6.1 mmol/L (3.5-5.1) H* 07/31/18 05:30 Chloride 99 mmol/L (98-107) 07/31/18 05:30 Carbon Dioxide 20 mmol/L (21-32) L 07/31/18 05:30 Anion Gap 11 MMOL/L (8-16) 07/31/18 05:30 BUN 116.0 mg/dL (7-18) H* 07/31/18 05:30 Creatinine 3.2 mg/dL (0.55-1.3) H 07/31/18 05:30 Random Glucose 152 mg/dL (74-106) H 07/31/18 05:30 Calcium 7.8 mg/dL (8.5-10.1) L 07/31/18 05:30 Total Bilirubin 3.7 mg/dL (0.2-1) H 07/31/18 05:30 AST 26 U/L (15-37) 07/31/18 05:30 ALT 30 U/L (13-61) 07/31/18 05:30 Alkaline Phosphatase 106 U/L (45-117) 07/31/18 05:30 Total Protein 6.1 g/dl (6.4-8.2) L 07/31/18 05:30 Albumin 2.7 g/dl (3.4-5.0) L 07/31/18 05:30 CARDIAC ENZYMES Creatine Kinase 39 U/L (26-308) 07/30/18 18:30 Troponin I 0.05 ng/ml (0.00-0.05) 07/30/18 18:30 Home Medications Medication Instructions Recorded Aspirin [ASA -] 81 mg PO DAILY 01/02/17 Cholecalciferol (Vitamin D3) 5,000 unit PO WEEKLY 01/02/17 [Vitamin D -] Febuxostat [Uloric] 40 mg PO DAILY 01/02/17 Gabapentin 300 mg PO DAILY 01/02/17 Glimepiride [Amaryl] 2 mg PO DAILY 01/02/17 Budesonide/Formeterol Fumarate 2 puff IH BID #1 inhaler 06/21/18 [SYMBICORT 160/4.5mcg -] Atorvastatin Ca [Lipitor] 40 mg PO HS tablet 07/27/18 Carvedilol [Coreg -] 3.125 mg PO DAILY tablet 07/27/18 Furosemide [Lasix -] 20 mg PO DAILY tablet 07/27/18 Olanzapine [Zyprexa -] 2.5 mg PO HS tablet 07/27/18 Apixaban [Eliquis -] 2.5 mg PO Q24H 07/30/18 Microbiology 07/30/18 05:05 Blood - Peripheral Venous Blood Culture - Preliminary NO GROWTH OBTAINED AFTER 48 HOURS, INCUBATION TO CONTINUE FOR 3 DAYS. 07/30/18 05:05 Blood - Peripheral Venous Blood Culture - Preliminary NO GROWTH OBTAINED AFTER 48 HOURS, INCUBATION TO CONTINUE FOR 3 DAYS. 07/30/18 05:45 Urine - Urine - Catheterized Urine Culture - Final NO GROWTH OBTAINED HOSPITAL COURSE: Date of Admission:07/30/18 Date of Discharge: 08/01/18 Patient is a 77yo male with PMHx of HTN, HLD, systolic CHF with (EF 15%) s/p PPM/defibrillator, CKD stage 3, CAD s/p stents, [place], gout, DM, COPD (not on 02), with recent diagnosis of thrombocytopenia ([place] reason; possible due to chronic DIC as per Hem/onc. vs HIT2 who presents to the ED from [facility] with hypotension of (70/40), hypothermia to 94.2F, with reported GIB as per [facility]. As per patient's daughter, pt was more responsive yesterday and was tolerating oral intake when she visited him. Patient was admitted to ICU, while in the ICU unit patient got intubated for airway protection. Nephrology was consulted to arrange for HD since elevated BUN/Creatinine. # Acute respiratory failure s/p intubation, patient coded in ICU ACLS protocol followed # Acute hypothermia/hypotension: cardiogenic shock/septic shock ;patient was started on IV meropenem and vancomycin, as per ID care # Possible GIB: GI consulted, h/h to monitor ,stool OB positive, aspirin and Eliquis was on hold with evaluation of Assistant Store Director, on Protonix IV daily. # Hx of gout was on Urolic # Acute on chronic Kidney failure; nephrology on the case,[place] for HD if possible # T2DM was placed on SS with coverage # Elevated TSH around 9.47;with NL FT4 ;possible Myxedema , patient was started on HC 100mg IV, and continued HC 100mg IV q8h, low dose synthroid was started by intelligence specialist. Previous w/u: LDH, haptoglobin nl -FOBT neg -P and C ANCA, HERB neg -No evidence of Lupus anticoagulant -Mixing study: PT is elevated and PTT is nl, also Factor VII percentage is low. 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 s/p Argabotran, c/w eliquis 5mg q24h, Heme recs appreciated. Hospital course: patient was intubated for airway protection , patient went into Cardio-Pulmonary arrest in ICU, the next day. due to having Acute Systolic CHF with EF 15% , septic shock , with metabolic encephalopathy, Acute on chronic renal disease needing dialysis. Patient had an cardiopulmonary arrest patient was coded by the ICU team and pronounced by the ICU team. Minutes to complete discharge: 35 Discharge Summary Reason For Visit: CHRONIC KIDNEY DISEASE,CHRONIC RENAL INS,HYPOTENSI Condition: Critical - Instructions Disposition: - Home Medications Comprehensive Discharge Medication List: Ambulatory Orders Aspirin [ASA -] 81 mg PO DAILY 01/02/17 Cholecalciferol (Vitamin D3) [Vitamin D -] 5,000 unit PO WEEKLY 01/02/17 Febuxostat [Uloric] 40 mg PO DAILY 01/02/17 Gabapentin 300 mg PO DAILY 01/02/17 Glimepiride [Amaryl] 2 mg PO DAILY 01/02/17 Budesonide/Formeterol Fumarate [SYMBICORT 160/4.5mcg -] 2 puff IH BID #1 inhaler 06/21/18 Atorvastatin Ca [Lipitor] 40 mg PO HS tablet 07/27/18 Carvedilol [Coreg -] 3.125 mg PO DAILY tablet 07/27/18 Furosemide [Lasix -] 20 mg PO DAILY tablet 07/27/18 Olanzapine [Zyprexa -] 2.5 mg PO HS tablet 07/27/18 Apixaban [Eliquis -] 2.5 mg PO Q24H 07/30/18 This patient is new to me today: No Emergency Visit: Yes ED Registration Date: 07/30/18 Care time: The patient presented to the Emergency Department on the above date and was hospitalized for further evaluation of their emergent condition. Critical Care patient: Yes Total Critical Care Time (in minutes): 35 Critical Care Statement: The care of this patient involved high complexity decision making to prevent further life threatening deterioration of the patient 's condition and/or to evaluate & treat vital organ system(s) failure or risk of failure. - Discharge Referral Referred to [facility] No
== END 2018-07-31 09:00 | disposition expired | DRG 871 ==
LOC: JER 04:26 → JERBED 06:31 → JICU 09:21
PROVIDERS: ADMIT Internal Medicine; ATTEND Internal Medicine
PROC: 5A1935Z Respiratory Ventilation, Less than 24 Consecutive Hours (ICD-10-PCS; principal; 2018-07-30)
PROC: 0BH17EZ Insertion of Endotracheal Airway into Trachea, Via Natural or Artificial Opening (ICD-10-PCS; 2018-07-30)
PROC: 06HM33Z Insertion of Infusion Device into Right Femoral Vein, Percutaneous Approach (ICD-10-PCS; 2018-07-30)
PROC: B54BZZA Ultrasonography of Right Lower Extremity Veins, Guidance (ICD-10-PCS; 2018-07-30)
PROC: 5A1D70Z Performance of Urinary Filtration, Intermittent, Less than 6 Hours Per Day (ICD-10-PCS; 2018-07-30)
DX: A41.9 Sepsis, unspecified organism (principal); R65.21 Severe sepsis with septic shock; J96.00 Acute respiratory failure, unspecified whether with hypoxia or hypercapnia; G93.41 Metabolic encephalopathy; I13.0 Hypertensive heart and chronic kidney disease with heart failure and stage 1 through stage 4 chronic kidney disease, or unspecified chronic kidney disease; N17.9 Acute kidney failure, unspecified; I50.22 Chronic systolic (congestive) heart failure; N18.4 Chronic kidney disease, stage 4 (severe); G93.40 Encephalopathy, unspecified; K92.2 Gastrointestinal hemorrhage, unspecified; I42.8 Other cardiomyopathies; E87.2 Acidosis; Z95.0 Presence of cardiac pacemaker; I25.2 Old myocardial infarction; E78.5 Hyperlipidemia, unspecified; I25.10 Atherosclerotic heart disease of native coronary artery without angina pectoris; J44.9 Chronic obstructive pulmonary disease, unspecified; E87.5 Hyperkalemia; M10.9 Gout, unspecified; E11.22 Type 2 diabetes mellitus with diabetic chronic kidney disease; E03.9 Hypothyroidism, unspecified; D64.9 Anemia, unspecified
CPT/HCPCS: 31500; 36415; 36600; 70450-TC; 71045-TC-FY; 76870-TC; 80048; 80053; 81003; 82140; 82272; 82533; 82550; 82803; 82962; 83605; 83735; 83880; 84100; 84439; 84443; 84480; 84484; 85025; 85027; 85610; 85730; 86704; 86706; 86803; 86850; 86900; 86901; 87040; 87086; 87340; 87389; 93005; 93010; 93970-TC; 94002; 99285-25; P9047